=== PATIENT | female | born 1950 | race Caucasian/White ===

== ENCOUNTER 2016-09-12 17:19 | Emergency (ER) | payer MEDICARE, OTHER ==
--- NOTE | 2016-09-12 18:31 | ED ---
Extremity Problem HPI - General Chief complaint: Extremity Problem,Nontraumatic Stated complaint: Swollen Ankle Time Seen by Provider: 09/12/16 18:06 Source: patient, RN notes reviewed Mode of arrival: wheelchair Limitations: no limitations - History of Present Illness Initial comments: Patient is a 65-year-old female presents to the emergency room for evaluation of left ankle pain. Patient states she has been having left ankle pain and swelling for the past few months. Patient denies recent fall, trauma or injury to her left ankle. Patient states she did follow-up with primary care provider and had an ultrasound but never received the results. Patient states she still does not know why she is having ankle swelling and pain every time she walks. Patient states she would like an x-ray to make sure it is not fractured. Patient denies history of PE's or DVTs. Patient states she's been on Coumadin for the past few months. Patient states she was recently diagnosed with A. fib. Patient denies numbness or tingling in her toes. Patient denies chest pain or shortness of breath. Patient denies fevers or chills. - Related Data Home Medications Medication Instructions Recorded Confirmed Bumetanide [BUMEX] 0.5 mg PO BID 09/12/16 09/12/16 Chlorothiazide [Diuril] 500 mg PO BID 09/12/16 09/12/16 Cholecalciferol [Vitamin D3] 2,000 unit PO DAILY 09/12/16 09/12/16 Isosorbide Mononitrate ER [Imdur] 30 mg PO DAILY 09/12/16 09/12/16 Phospha 250 mg PO ACHS 09/12/16 09/12/16 Warfarin Sodium [Coumadin] 6 mg PO HS@1630 09/12/16 09/12/16 Allergies Allergy/AdvReac Type Severity Reaction Status Date / Time No Known Allergies Allergy Verified 09/12/16 19:10 Review of Systems ROS Statement: Those systems with pertinent positive or pertinent negative responses have been documented in the HPI. ROS Other: All systems not noted in ROS Statement are negative. Past Medical History Past Medical History: Hypertension History of Any Multi-Drug Resistant Organisms: None Reported Past Surgical History: Hysterectomy, Orthopedic Surgery Past Psychological History: No Psychological Hx Reported Smoking Status: Current every day smoker Past Alcohol Use History: None Reported Past Drug Use History: None Reported General Exam - General Exam Comments Initial Comments: Sitting in exam room, no acute distress. Limitations: no limitations General appearance: alert, in no apparent distress Head exam: Present: atraumatic, normocephalic, normal inspection Eye exam: Present: normal appearance ENT exam: Present: normal exam Neck exam: Present: normal inspection Respiratory exam: Present: normal lung sounds bilaterally. Absent: respiratory distress Cardiovascular Exam: Present: regular rate, normal rhythm, normal heart sounds Left Ankle exam: Present: full ROM, tenderness (Medial and lateral malleolus), swelling (Edema over her left ankle. No heat on palpation over the ankle. No cellulitis.). Absent: normal inspection Foot/Toe exam: Present: normal inspection Neurovascular tendon exam: Present: no vascular compromise. Absent: pulse deficit (2+ dorsal pedal and posterior tibial pulses), abnormal cap refill ( Capillary refill less than 2 seconds) Back exam: Present: normal inspection Neurological exam: Present: alert, oriented X3, CN II-XII intact Psychiatric exam: Present: normal affect, normal mood Skin exam: Present: warm, dry, intact, normal color. Absent: rash Course Vital Signs 09/12/16 09/12/16 09/12/16 17:30 18:25 20:37 Temperature 97.7 F 97.9 F Pulse Rate 74 93 72 Respiratory 18 16 16 Rate Blood Pressure 174/96 155/85 153/85 O2 Sat by Pulse 96 95 95 Oximetry 09/12/16 21:45 Temperature 98.2 F Pulse Rate 74 Respiratory 20 Rate Blood Pressure 151/68 O2 Sat by Pulse 99 Oximetry Medical Decision Making - Medical Decision Making Patient is a 65-year-old female presents emergency room for evaluation of increasing left ankle pain and swelling. X-ray shows no acute findings. Ultrasound shows no sign of DVT. Patient's INR at a therapeutic level. Advised patient to try compression stockings and to follow-up with her primary care provider for further evaluation. Patient states she understands everything that was discussed with her. Return parameters discussed. Case discussed with Dr. Johnston. - Lab Data Result diagrams: 09/12/16 18:30 09/12/16 18:30 Lab Results 09/12/16 09/12/16 09/12/16 Range/Units 18:30 18:30 18:30 WBC 7.8 (3.8-10.6) k/uL RBC 4.05 (3.80-5.40) m/uL Hgb 12.0 (11.4-16.0) gm/dL Hct 36.2 (34.0-46.0) % MCV 89.4 (80.0-100.0) fL MCH 29.7 (25.0-35.0) pg MCHC 33.2 (31.0-37.0) g/dL RDW 16.8 H (11.5-15.5) % Plt Count 161 (150-450) k/uL Neutrophils % 75 % Lymphocytes % 15 % Monocytes % 5 % Eosinophils % 2 % Basophils % 1 % Neutrophils # 5.9 (1.3-7.7) k/uL Lymphocytes # 1.2 (1.0-4.8) k/uL Monocytes # 0.4 (0-1.0) k/uL Eosinophils # 0.1 (0-0.7) k/uL Basophils # 0.1 (0-0.2) k/uL Manual Slide Review Performed Large Platelets Present Anisocytosis Slight Spherocytes Present PT (9.0-12.0) sec INR (<1.1) Sodium 142 (137-145) mmol/L Potassium 3.5 (3.5-5.1) mmol/L Chloride 107 (98-107) mmol/L Carbon Dioxide 23 (22-30) mmol/L Anion Gap 12 mmol/L BUN 17 (7-17) mg/dL Creatinine 0.70 (0.52-1.04) mg/dL Est GFR (MDRD) Af Amer >60 (>60 ml/min/1.73 sqM) Est GFR (MDRD) Non-Af >60 (>60 ml/min/1.73 sqM) Glucose 103 H (74-99) mg/dL Calcium 10.4 H (8.4-10.2) mg/dL Total Bilirubin 0.9 (0.2-1.3) mg/dL AST 19 (14-36) U/L ALT 22 (9-52) U/L Alkaline Phosphatase 124 (38-126) U/L NT-Pro-B Natriuret Pep 2490 pg/mL Total Protein 7.5 (6.3-8.2) g/dL Albumin 3.9 (3.5-5.0) g/dL 09/12/16 Range/Units 18:30 WBC (3.8-10.6) k/uL RBC (3.80-5.40) m/uL Hgb (11.4-16.0) gm/dL Hct (34.0-46.0) % MCV (80.0-100.0) fL MCH (25.0-35.0) pg MCHC (31.0-37.0) g/dL RDW (11.5-15.5) % Plt Count (150-450) k/uL Neutrophils % % Lymphocytes % % Monocytes % % Eosinophils % % Basophils % % Neutrophils # (1.3-7.7) k/uL Lymphocytes # (1.0-4.8) k/uL Monocytes # (0-1.0) k/uL Eosinophils # (0-0.7) k/uL Basophils # (0-0.2) k/uL Manual Slide Review Large Platelets Anisocytosis Spherocytes PT 16.1 H (9.0-12.0) sec INR 1.7 (<1.1) Sodium (137-145) mmol/L Potassium (3.5-5.1) mmol/L Chloride (98-107) mmol/L Carbon Dioxide (22-30) mmol/L Anion Gap mmol/L BUN (7-17) mg/dL Creatinine (0.52-1.04) mg/dL Est GFR (MDRD) Af Amer (>60 ml/min/1.73 sqM) Est GFR (MDRD) Non-Af (>60 ml/min/1.73 sqM) Glucose (74-99) mg/dL Calcium (8.4-10.2) mg/dL Total Bilirubin (0.2-1.3) mg/dL AST (14-36) U/L ALT (9-52) U/L Alkaline Phosphatase (38-126) U/L NT-Pro-B Natriuret Pep pg/mL Total Protein (6.3-8.2) g/dL Albumin (3.5-5.0) g/dL - Radiology Data Radiology results: report reviewed, image reviewed Disposition Clinical Impression: Edema of left ankle Disposition: HOME SELF-CARE Condition: Good Instructions: Leg Edema (ED) Additional Instructions: Compression stockings. Please follow up with primary care provider in 1-2 days for reevaluation. If any new symptom arises or symptoms worsen, return to ER as soon as possible. Referrals: Salo Mendez DO [Primary Care Provider] - 1-2 days Time of Disposition: 21:29
[2016-09-12 18:54] LABS: Anisocytosis Slight; Basophils # (A) 0.1 k/uL (0-0.2); Basophils % (A) 1 %; CH 29.2; CHCM 32.9; Eosinophils # (A) 0.1 k/uL (0-0.7); Eosinophils % (A) 2 %; HCT 36.2 % (34.0-46.0); Large Platelets Flag Slight; Luc # (Auto) 0.14; Luc % (Auto) 2; Lymphocytes # (A) 1.2 k/uL (1.0-4.8); Lymphocytes % (A) 15 %; MCH 29.7 pg (25.0-35.0); MCHC 33.2 g/dL (31.0-37.0); MCV 89.4 fL (80.0-100.0); Mean Platelet Volume 10.6; Monocytes # (A) 0.4 k/uL (0-1.0); Monocytes % (A) 5 %; Neutrophils # (A) 5.9 k/uL (1.3-7.7); Neutrophils % (A) 75 %; RBC 4.05 m/uL (3.80-5.40); RDW 16.8 % (11.5-15.5); WBC 7.8 k/uL (3.8-10.6); WBC (Perox) 7.67
[2016-09-12 18:55] LABS: INR 1.7 (<1.1); Prothrombin Time 16.1 sec (9.0-12.0)
[2016-09-12 18:57] LABS: ALT 22 U/L (9-52); AST 19 U/L (14-36); Alkaline Phosphatase 124 U/L (38-126); Anion Gap 12 mmol/L; Blood Urea Nitrogen 17 mg/dL (7-17); Calcium 10.4 mg/dL (8.4-10.2); Carbon Dioxide 23 mmol/L (22-30); Chloride 107 mmol/L (98-107); Glucose 103 mg/dL (74-99); Non-African American GFR(MDRD) >60 (>60 ml/min/1.73 sqM); Potassium 3.5 mmol/L (3.5-5.1); Sodium 142 mmol/L (137-145); Total Bilirubin 0.9 mg/dL (0.2-1.3); Total Protein 7.5 g/dL (6.3-8.2)
--- NOTE | 2016-09-12 19:02 | XR ---
EXAMINATION TYPE: XR ankle complete LT DATE OF EXAM: 09/12/2016 6:48 PM COMPARISON: NONE HISTORY: Pain and swelling TECHNIQUE: 3 views FINDINGS: There is soft tissue swelling around the ankle joint. There is a 5 mm defect in the cortex on the medial dome of the talus. There is spurring of the posterior malleolus. There are plantar and Achilles calcaneal spurs. 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 Soft tissue swelling. N o acute fracture seen.
--- NOTE | 2016-09-12 19:04 | XR ---
EXAMINATION TYPE: XR foot complete LT DATE OF EXAM: 09/12/2016 6:48 PM COMPARISON: NONE HISTORY: Pain and swelling TECHNIQUE: 3 views FINDINGS: Metatarsals appear intact. There is narrowing and spurring at the first MP joint. There is soft tissue swelling. There is calcaneal spurring. There is some erosion of the fifth metatarsal head . IMPRESSION: Changes at the fifth metatarsal could relate to inflammatory arthritis. 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 No fracture.
[2016-09-12 20:18] LABS: Manual Review Performed
[2016-09-12 20:19] LABS: Large Platelets Present; Spherocytes Present
--- NOTE | 2016-09-12 21:25 | US ---
EXAMINATION TYPE: US venous doppler duplex LE LT DATE OF EXAM: 09/12/2016 7:43 PM COMPARISON: NONE CLINICAL HISTORY: Left leg Pain. Extremely difficult and limited study due to patient body habitus an d patient unable to tolerate pressure from the probe SIDE PERFORMED: Left TECHNIQUE: The lower extremity deep venous system is examined utilizing real time linear array sonog anjelica with graded compression, doppler sonography and color-flow sonography. VESSELS IMAGED: External Iliac Vein (EIV) Common Femoral Vein Deep Femoral Vein Greater Saphenous Vein * Femoral Vein Popliteal Vein Small Saphenous Vein * Proximal Calf Veins (* superficial vessels) Left Leg: Negative for DVT as visualized, limited exam IMPRESSION: No evidence of deep venous thrombosis in the left leg. Exam was limited.
[2016-09-12 21:55] VITALS: BP 151/68; PULSE 74; RESP 20; TEMP 98.2
== END 2016-09-12 21:45 | disposition home or self-care (01) ==
LOC: EC 17:19
DX: R60.0 Localized edema (principal); I10 Essential (primary) hypertension; F17.200 Nicotine dependence, unspecified, uncomplicated; Z79.01 Long term (current) use of anticoagulants; Z79.899 Other long term (current) drug therapy
CPT/HCPCS: 36415; 80053; 83880; 85025; 85610; 99284

== ENCOUNTER 2016-11-24 14:20 | Inpatient (IN) | payer MEDICARE, OTHER ==
[2016-11-24] MEDS ORDERED: IV VANCOMYCIN PER PHARMACY 1 EACH MISC MISCELLANE PRN (15:02)
[2016-11-24] MEDS ORDERED: PIPERACILLIN-TAZOBACTAM 3.375 GM in DEXTROSE/WATER 1 50ML.BAG IVPB STA (15:02)
--- NOTE | 2016-11-24 15:38 | ED ---
Wound/Laceration HPI - General Chief Complaint: Wound/Laceration Stated Complaint: OPEN WOUND RT LEG Time Seen by Provider: 11/24/16 14:28 Source: patient, EMS, RN notes reviewed, old records reviewed Mode of arrival: EMS Limitations: no limitations - History of Present Illness Initial Comments: This 65-year-old female presents emergency Department chief complaint of increased swelling and drainage from a wound over her right lower leg. Patient reports that she's had some cellulitis lesions over the lower extremity for the past 2 weeks. Patient reports that on Sunday she noticed that it started to form a large pustule over the superior area of the lesion. Patient reports that her visiting nurse saw this and felt that she needed to come to the emergency department. She was started on Bactrim DS by her primary care physician for this two days ago. She has had 4 doses total of Bactrim. Patient denies any fever or chills, chest pain or shortness of breath. She has a history of A. fib and is on Coumadin. She also reports that she has some occasional shortness of breath with walking. She denies any chest pain. She is a smoker. She denies any history of diabetes. She reports that she supposed to follow-up with Dr. Vargas in regards to managing her lower extremity vascularity. Patient reports that she has an appointment on Sunday afternoon. Patient denies any recent fever, chills, shortness of breath, chest pain, back pain, abdominal pain, nausea vomiting, numbness or tingling, dysuria or hematuria, constipation or diarrhea, headaches or visual changes, or any other current symptoms yet. - Related Data Home Medications Medication Instructions Recorded Confirmed Cholecalciferol [Vitamin D3] 2,000 unit PO DAILY 09/12/16 11/24/16 Isosorbide Mononitrate ER [Imdur] 30 mg PO DAILY 09/12/16 11/24/16 Warfarin Sodium [Coumadin] 6 mg PO MOTUTHFR 09/12/16 11/24/16 Warfarin [Coumadin] 3 mg PO SUWESA 11/22/16 11/24/16 Aspirin [Adult Low Dose Aspirin EC] 81 mg PO DAILY 11/24/16 11/24/16 Bumetanide [BUMEX] 0.5 mg PO BID 11/24/16 11/24/16 Phospha 250mg 500 mg PO QID 11/24/16 11/24/16 Sulfamethoxazole/Trimethoprim 1 tab PO BID 11/24/16 11/24/16 [Bactrim DS 800-160 mg] Allergies Allergy/AdvReac Type Severity Reaction Status Date / Time No Known Allergies Allergy Verified 11/24/16 14:45 Review of Systems ROS Statement: Those systems with pertinent positive or pertinent negative responses have been documented in the HPI. ROS Other: All systems not noted in ROS Statement are negative. Past Medical History Past Medical History: Hypertension History of Any Multi-Drug Resistant Organisms: None Reported Past Surgical History: Hysterectomy, Orthopedic Surgery Past Psychological History: No Psychological Hx Reported Smoking Status: Current every day smoker Past Alcohol Use History: None Reported Past Drug Use History: None Reported General Exam - General Exam Comments Initial Comments: 65-year-old female. Limitations: no limitations General appearance: alert, in no apparent distress Head exam: Present: atraumatic, normocephalic, normal inspection Eye exam: Present: normal appearance, PERRL, EOMI. Absent: scleral icterus, conjunctival injection, periorbital swelling ENT exam: Present: normal exam, mucous membranes moist Neck exam: Present: normal inspection. Absent: tenderness, meningismus, lymphadenopathy Respiratory exam: Present: normal lung sounds bilaterally. Absent: respiratory distress, wheezes, rales, rhonchi, stridor Cardiovascular Exam: Present: regular rate, normal rhythm, normal heart sounds. Absent: systolic murmur, diastolic murmur, rubs, gallop, clicks GI/Abdominal exam: Present: soft Extremities exam: Present: normal inspection, full ROM, normal capillary refill , pedal edema (Patient has significant bilateral pedal edema. Dorsalis pedis pulse was not palpable however was obtained with Doppler ultrasound.). Absent: tenderness, joint swelling, calf tenderness Back exam: Present: normal inspection Neurological exam: Present: alert, oriented X3, CN II-XII intact Psychiatric exam: Present: normal affect, normal mood Skin exam: Present: warm, dry, intact, rash, erythema (Patient has significant erythema over the right lower extremity consistent with cellulitis. Evidence of pus filled bulla over the superior aspect of the right lower leg.). Absent: normal color Course Vital Signs 11/24/16 11/24/16 14:24 16:07 Temperature 98.8 F 97.7 F Pulse Rate 90 92 Respiratory 18 18 Rate Blood Pressure 173/72 138/91 O2 Sat by Pulse 99 97 Oximetry Medical Decision Making - Medical Decision Making This 65-year-old female presents emergency Department chief complaint of increased swelling and drainage from a wound over her right lower leg. Patient reports that she's had some cellulitis lesions over the lower extremity for the past 2 weeks. Patient reports that on Sunday she noticed that it started to form a large pustule over the superior area of the lesion. Patient reports that her visiting nurse saw this and felt that she needed to come to the emergency department. She was started on Bactrim DS by her primary care physician for this two days ago. She has had 4 doses total of Bactrim. Patient has significant edema over bilateral lower extremity. She reports that this seems to be chronic. She is also follow-up with Dr. Lind in regards to managing her significant edema and venous stasis in her bilateral lower extremities.Patient was started on IV fluids and blood work and blood cultures are obtained. Aerobic wound culture was also obtained. She did have a culture done by her primary care physician 2 days ago which read positive for Klebsiella pneumonia, group B streptococcus and enterococcus. Patient will be started on Zosyn and vancomycin. X-ray of the tib-fib as well is completed. Patient will be admitted at this time for right leg cellulitis. Discussed this with Dr. Infante who discussed case with Dr. Simons. Patient's parents admitted and on review of chest x-ray shows evidence of right middle lobe infiltrate. Patient will also be given breathing treatments upstairs. - Lab Data Result diagrams: 11/24/16 15:35 11/24/16 15:35 11/24/16 16:54 A. fib is noted. Of inferior infarct anterior infarct age undetermined. Intracranial any 4 bpm. QRS duration 120 ms. QT QTc is 410/480 ms. - Radiology Data Radiology results: report reviewed Tib-fib x-ray shows no acute fracture dislocation noted. Soft tissue swelling of uncertain etiology. Findings suggest a right middle lobe infiltrate with small parapneumonic effusion. Disposition Clinical Impression: Cellulitis of right leg, Afib, Bilateral leg edema, Venous insufficiency, Right middle lobe pneumonia Disposition: ADMITTED IP TO THIS HOSP Condition: Good Time of Disposition: 16:06
[2016-11-24 15:55] LABS: Anisocytosis Slight; Basophils % (A) 1 %; CH 29.4; CHCM 32.6; Eosinophils # (A) 0.1 k/uL (0-0.7); Eosinophils % (A) 1 %; HCT 38.6 % (34.0-46.0); HDW 2.57; HGB 12.5 gm/dL (11.4-16.0); Luc # (Auto) 0.06; Luc % (Auto) 1; Lymphocytes # (A) 0.9 k/uL (1.0-4.8); Lymphocytes % (A) 14 %; MCH 29.5 pg (25.0-35.0); MCHC 32.4 g/dL (31.0-37.0); MCV 90.9 fL (80.0-100.0); Monocytes # (A) 0.3 k/uL (0-1.0); Monocytes % (A) 4 %; Neutrophils # (A) 5.3 k/uL (1.3-7.7); Neutrophils % (A) 80 %; RBC 4.24 m/uL (3.80-5.40); RDW 17.6 % (11.5-15.5); WBC 6.7 k/uL (3.8-10.6); WBC (Perox) 7.03
[2016-11-24] MEDS ORDERED: VANCOMYCIN 2,000 MG in SODIUM CHLORIDE 0.9% 500 ML IVPB ONE (16:00)
[2016-11-24] MEDS: SODIUM CHLORIDE 0.9% 500 ML IV SCH ×2 (16:03→16:04)
[2016-11-24 16:06] LABS: Partial Thromboplastin Time 26.9 sec (22.0-30.0); Prothrombin Time 19.6 sec (9.0-12.0)
[2016-11-24 16:08] LABS: ALT 35 U/L (9-52); AST 23 U/L (14-36); Alkaline Phosphatase 123 U/L (38-126); Anion Gap 14 mmol/L; Blood Urea Nitrogen 16 mg/dL (7-17); Calcium 10.2 mg/dL (8.4-10.2); Carbon Dioxide 24 mmol/L (22-30); Chloride 104 mmol/L (98-107); Glucose 98 mg/dL (74-99); Non-African American GFR(MDRD) >60 (>60 ml/min/1.73 sqM); Potassium 3.3 mmol/L (3.5-5.1); Sodium 142 mmol/L (137-145); Total Bilirubin 1.7 mg/dL (0.2-1.3); Total Protein 7.2 g/dL (6.3-8.2)
[2016-11-24] MEDS ORDERED: IBUPROFEN 400 MG TAB PO PRN (16:10)
[2016-11-24] MEDS ORDERED: NALOXONE 0.4 MG/ML 1 ML VIAL IV PRN (16:10)
[2016-11-24] MEDS ORDERED: LORazepam 2 MG/ML SYRINGE IV PRN (16:10)
[2016-11-24] MEDS ORDERED: ACETAMINOPHEN TAB 325 MG TAB PO PRN (16:10)
[2016-11-24] MEDS ORDERED: SODIUM CHLORIDE 0.9% 1,000 ML IV SCH (16:15)
--- NOTE | 2016-11-24 16:32 | XR ---
EXAMINATION TYPE: XR tibia fibula RT DATE OF EXAM: 11/24/2016 CLINICAL HISTORY: pain TECHNIQUE: AP and lateral images of the right tibia and fibula are obtained. COMPARISON: None. FINDINGS: There is no acute fracture/dislocation evident. Postoperative changes of total knee arthro plasty and fixation plate distal fibula. The joint spaces appear within normal limits. Soft tissue s welling of uncertain etiology. IMPRESSION: There is no acute fracture or dislocation seen. ICD 10 NO FRACTURE, INITIAL EVALUATION
--- NOTE | 2016-11-24 16:33 | XR ---
EXAMINATION TYPE: XR chest 2V DATE OF EXAM: 11/24/2016 COMPARISON: NONE HISTORY: Shortness of breath TECHNIQUE: Frontal and lateral views of the chest are obtained. FINDINGS: Scattered senescent parenchymal changes noted. Hyperinflation compatible with COPD. Patchy density right middle lobe. The small right-sided effusion. Correlate for pneumonia. Heart size is enlarged without overt failure. Mediastinal structures are stable and grossly unremarkable. No evidence for hilar prominence. Degenerative changes dorsal spine. IMPRESSION: 1. Findings suggest a right middle lobe infiltrate with small parapneumonic effusion.
[2016-11-24] MEDS ORDERED: PNEUMONIA PROTOCOL UTILIZED 1 EACH MISC PO PRN (16:56)
[2016-11-24] MEDS: MORPHINE SULFATE 4 MG/ML SYRINGE IV PRN (16:59)
[2016-11-24] MEDS ORDERED: AZITHROMYCIN 500 MG TAB PO STA (17:04)
[2016-11-24] MEDS ORDERED: PHOSPHA PO SCH (18:00)
[2016-11-24 19:06] LABS: Creatine Kinase MB 1.5 ng/mL (0.0-2.4)
[2016-11-24 19:11] LABS: Troponin I 0.063 ng/mL (0.000-0.034)
[2016-11-24] MEDS ORDERED: FUROSEMIDE 10 MG/ML 4 ML VIAL IV STA (19:51)
[2016-11-24] MEDS: BUMETANIDE 0.5 MG TABLET PO SCH (20:59)
[2016-11-24] MEDS: FAMOTIDINE 20 MG TAB PO SCH (20:59)
[2016-11-24 22:14] LABS: Creatine Kinase MB 1.8 ng/mL (0.0-2.4)
[2016-11-24 22:23] LABS: Troponin I 0.071 ng/mL (0.000-0.034)
[2016-11-24 22:36] LABS: Appearance,Urine Clear (Clear); Bilirubin,Urine Negative (Negative); Glucose,Urine (UA) Negative (Negative); Ketones,Urine Negative (Negative); Leukocyte Esterase,Urine Negative (Negative); Nitrite,Urine Negative (Negative); Protein,Urine Negative (Negative); Specific Gravity,Urine 1.004 (1.001-1.035); UA Billing (MACRO vs. MICRO) CHEM
--- NOTE | 2016-11-25 00:36 | P.HPIM ---
History of Present Illness H&P Date: 11/24/16 Chief Complaint: leg swelling and wound on the leg This 65-year-old female with a pmh of HTN, Afib on coumadin, presents to ER with complaint of increased swelling and drainage from a wound over her right lower leg. Patient reports that she's had some cellulitis lesions over the lower extremity for the past 2 weeks. Patient reports that on Sunday she noticed that it started to form a large pustule over the superior area of the lesion. Patient reports that her visiting nurse saw this and felt that she needed to come to the emergency department. She was started on Bactrim DS by her primary care physician for this two days ago. She has had 4 doses total of Bactrim. Patient denies any fever or chills, chest pain or shortness of breath. She also reports that she has some occasional shortness of breath with walking. She denies any chest pain. She is a smoker. She denies any history of diabetes. She reports that she supposed to follow-up with Dr. Vargas in regards to managing her lower extremity vascularity. Patient reports that she has an appointment on Sunday afternoon. Review of Systems Constitutional: Patient denies any fever or chills . No generalized weakness or weight loss. Abdomen: Patient patient does have nausea and 1 episode of vomiting. No diarrhea and abdominal pain. Cardiovascular: Patient denies any chest pain or short of breath no palpitations. Respiratory: patient denied any cough is from production. No shortness of breath Neurologic: Patient denied any numbness . Patient does have dizziness and lightheadedness. Musculoskeletal: Patient denies any complaints of joint swelling or deformity. Skin: b/l leg swelling, redness and skin abcesses. Psychiatric: Negative Endocrine: No heat or cold intolerance. No recent weight gain. Genitourinary: No dysuria or hematuria. All other 14 point ROS negative except the above Past Medical History Past Medical History: Hypertension History of Any Multi-Drug Resistant Organisms: None Reported Past Surgical History: Hysterectomy, Orthopedic Surgery Past Psychological History: No Psychological Hx Reported Smoking Status: Current every day smoker Past Alcohol Use History: None Reported Past Drug Use History: None Reported - Past Family History Mother History Unknown: Yes Father Family Medical History: Cancer, Myocardial Infarction ([place]) Medications and Allergies Home Medications Medication Instructions Recorded Confirmed Type Cholecalciferol [Vitamin D3] 2,000 unit PO DAILY 09/12/16 11/24/16 History Isosorbide Mononitrate ER [Imdur] 30 mg PO DAILY 09/12/16 11/24/16 History Warfarin Sodium [Coumadin] 6 mg PO MOTUTHFR 09/12/16 11/24/16 History Warfarin [Coumadin] 3 mg PO SUWESA 11/22/16 11/24/16 History Aspirin [Adult Low Dose Aspirin EC] 81 mg PO DAILY 11/24/16 11/24/16 History Bumetanide [BUMEX] 0.5 mg PO BID 11/24/16 11/24/16 History Phospha 250mg 500 mg PO QID 11/24/16 11/24/16 History Sulfamethoxazole/Trimethoprim 1 tab PO BID 11/24/16 11/24/16 History [Bactrim DS 800-160 mg] Allergies Allergy/AdvReac Type Severity Reaction Status Date / Time No Known Allergies Allergy Verified 11/24/16 14:45 Physical Exam Vitals: Vital Signs Temp Pulse Pulse Resp BP BP Pulse Ox 11/24/16 17:43 97.1 F L 73 16 158/94 94 L 11/24/16 16:58 98.4 F 89 18 166/75 99 11/24/16 16:07 97.7 F 92 18 138/91 97 11/24/16 14:24 98.8 F 90 18 173/72 99 Intake and Output 11/24/16 11/24/16 11/24/16 06:59 14:59 22:59 Other: Weight 113.398 kg Patient Weight 11/25/16 06:59 Weight 113.398 kg General appearance: alert, in no apparent distress Head exam: : atraumatic, normocephalic, normal inspection Eye exam:: normal appearance, PERRL, EOMI. Absent: scleral icterus, conjunctival injection, periorbital swelling ENT exam:: normal exam, mucous membranes moist Neck exam: : normal inspection. Absent: tenderness, meningismus, lymphadenopathy Respiratory exam: Present: normal lung sounds bilaterally. Absent: respiratory distress, wheezes, rales, rhonchi, stridor Cardiovascular Exam: Present: regular rate, normal rhythm, normal heart sounds. Absent: systolic murmur, diastolic murmur, rubs, gallop, clicks GI/Abdominal exam: Present: soft Extremities exam: Present: normal inspection, full ROM, normal capillary refill , pedal edema (Patient has significant bilateral pedal edema. Dorsalis pedis pulse was not palpable however was obtained with Doppler ultrasound.). Absent: tenderness, joint swelling, calf tenderness Back exam: Present: normal inspection Neurological exam: Present: alert, oriented X3, CN II-XII intact Psychiatric exam: Present: normal affect, normal mood Skin exam: Present: warm, dry, intact, rash, erythema (Patient has significant erythema over the right lower extremity consistent with cellulitis. Evidence of pus filled bulla over the superior aspect of the right lower leg.). Absent: normal color Results CBC & Chem 7: 11/24/16 15:35 11/24/16 15:35 Labs: Abnormal Lab Results - Last 24 Hours (Table) 11/24/16 11/24/16 11/24/16 Range/Units 15:35 15:35 15:35 RDW 17.6 H (11.5-15.5) % Lymphocytes # 0.9 L (1.0-4.8) k/uL PT 19.6 H (9.0-12.0) sec INR 2.0 H (<1.2) Potassium 3.3 L (3.5-5.1) mmol/L Total Bilirubin 1.7 H (0.2-1.3) mg/dL Thrombosis Risk Factor Assmnt - DVT/VTE Prophylaxis DVT/VTE Prophylaxis: Pharmacologic Prophylaxis ordered Assessment and Plan Plan: B/L LE Cellulitis R>L with multiple small abcesses Right middle lobe pneumonia Chronic Afib on coumadin INR 2.0 Bilateral leg edema secondary Venous insufficiency Peripheral Vascular disease HTN NIcotone addiction. Possible underlying COPD Plan: Pt. will be continued on IV abx. Vanco_Ruthsyn, ID consulted and vascular surgery as well. f/u Wound cx and further recommnedations based on clinical course. Time with Patient: Greater than 30
[2016-11-25] MEDS: PIPERACILLIN-TAZOBACTAM 3.375 GM in DEXTROSE/WATER 1 50ML.BAG IVPB SCH ×2 (00:55→08:55)
[2016-11-25 03:36] LABS: Creatine Kinase MB 1.3 ng/mL (0.0-2.4)
[2016-11-25 03:39] LABS: Troponin I 0.104 ng/mL (0.000-0.034)
[2016-11-25] MEDS: IPRATROPIUM-ALBUTEROL 3 ML NEB INHALATION PRN ×3 (07:33→21:53)
--- NOTE | 2016-11-25 08:13 | XR ---
EXAMINATION TYPE: XR chest 2V DATE OF EXAM: 11/25/2016 COMPARISON: 11/24/2016 HISTORY: Shortness of breath TECHNIQUE: Frontal and lateral views of the chest are obtained. FINDINGS: Scattered senescent parenchymal changes noted. Hyperinflation compatible with COPD. Patchy basilar density right medial lung base with associated linear densities is unchanged and may r eflect atelectasis and/or infiltrate with small effusion. Improving aeration left medial lung base. Heart size is stable. Mediastinal structures are stable and grossly unremarkable. No evidence for hilar prominence. Degenerative changes dorsal spine. IMPRESSION: 1. Patchy basilar density right medial lung base with associated linear densities is unchanged and ma y reflect atelectasis and/or infiltrate with small effusion. Improving aeration left medial lung base .
[2016-11-25] MEDS: Acetaminophen-Codeine 300-30mg TAB PO PRN ×3 (08:44→21:49)
[2016-11-25] MEDS: FAMOTIDINE 20 MG TAB PO SCH ×2 (08:45→20:44)
[2016-11-25] MEDS: CHOLECALCIFEROL 1,000 UNIT TAB PO SCH (08:45)
[2016-11-25] MEDS: ISOSORBIDE MONONITRATE ER 30 MG TAB.ER.24H PO SCH (08:45)
[2016-11-25] MEDS: BUMETANIDE 0.5 MG TABLET PO SCH ×2 (08:45→20:44)
[2016-11-25] MEDS: NICOTINE 21MG/24HR PATCH TRANSDERM SCH (08:45)
[2016-11-25] MEDS: ASPIRIN 81 MG CHEW PO SCH (08:46)
[2016-11-25 09:21] LABS: Anisocytosis Slight; Basophils % (A) 1 %; CH 29.1; CHCM 31.8; Eosinophils # (A) 0.1 k/uL (0-0.7); Eosinophils % (A) 2 %; HCT 35.3 % (34.0-46.0); HDW 2.48; HGB 11.6 gm/dL (11.4-16.0); Large Platelets Flag Slight; Luc % (Auto) 2; Lymphocytes % (A) 16 %; MCH 30.2 pg (25.0-35.0); MCHC 32.9 g/dL (31.0-37.0); MCV 92.1 fL (80.0-100.0); Mean Platelet Volume 11.5; Monocytes # (A) 0.4 k/uL (0-1.0); Monocytes % (A) 6 %; Neutrophils # (A) 4.7 k/uL (1.3-7.7); Neutrophils % (A) 74 %; RBC 3.84 m/uL (3.80-5.40); RDW 17.6 % (11.5-15.5); WBC 6.3 k/uL (3.8-10.6); WBC (Perox) 6.54
[2016-11-25 09:38] LABS: Anion Gap 11 mmol/L; Blood Urea Nitrogen 19 mg/dL (7-17); Calcium 9.8 mg/dL (8.4-10.2); Carbon Dioxide 26 mmol/L (22-30); Chloride 103 mmol/L (98-107); Glucose 143 mg/dL (74-99); Non-African American GFR(MDRD) 52 (>60 ml/min/1.73 sqM); Potassium 3.3 mmol/L (3.5-5.1); Sodium 140 mmol/L (137-145)
[2016-11-25] MEDS ORDERED: VANCOMYCIN 1,750 MG in SODIUM CHLORIDE 0.9% 250 ML IVPB SCH (12:00)
--- NOTE | 2016-11-25 12:36 | P.CRDCN ---
History of Present Illness Consult date: 11/25/16 History of present illness: This is a 65-year-old female with history of of hypertension, atrial fibrillation, who came to the hospital with complaints of increasing swelling of the legs and also shortness of breath. Patient's troponin values were mildly elevated but the pattern is not consistent with acute coronary syndrome. Patient's EKG showed evidence of possible anteroseptal and inferior wall AK, though patient doesn't give any history of having previous myocardial infarction. Echocardiogram showed fairly preserved LV function without any definite segmental wall motion defects. However her proBNP is elevated. Patient is currently being treated with Bumex. I'm going to add all lactone 25 mg once daily along with Coreg and his Toprol. If necessary, IV Lasix or Zaroxolyn could be added. Patient also has peripheral vascular disease and is being followed by vascular surgeon. She doesn't seem to be in acute distress at the time of my examination. She denies any orthopnea, paroxysmal dyspnea or chest pains Review of Systems As per the chart Past Medical History Past Medical History: Hypertension Additional Past Medical History / Comment(s): RT MUNGUIA HAS OPEN WOUND/ CELLULITIS. GOES TO [facility] EVERY SUNDAY.UTERINE CANCER. LT CATARACT History of Any Multi-Drug Resistant Organisms: None Reported Past Surgical History: Hysterectomy, Orthopedic Surgery Additional Past Surgical History / Comment(s): UZMA KNEE REPLACMENTS, RT ANKLE- METAL PLATE, RT ARM SX REPAIR D/T LACERATION. RT THUMB TENDON REPAIR," LT FOOT GREAT TOE BONE REMOVED". Past Anesthesia/Blood Transfusion Reactions: Blood Transfusion Reaction Additional Past Anesthesia/Blood Transfusion Reaction / Comment(s): PAST BLOOD [id number] Date of Last Stent Placement:: 2003 Past Psychological History: No Psychological Hx Reported Smoking Status: Current every day smoker Past Alcohol Use History: None Reported Past Drug Use History: None Reported - Past Family History Mother History Unknown: Yes Father Family Medical History: Cancer, Myocardial Infarction (AK) Medications and Allergies Home Medications Medication Instructions Recorded Confirmed Type Cholecalciferol [Vitamin D3] 2,000 unit PO DAILY 09/12/16 11/24/16 History Isosorbide Mononitrate ER [Imdur] 30 mg PO DAILY 09/12/16 11/24/16 History Warfarin Sodium [Coumadin] 6 mg PO MOTUTHFR 09/12/16 11/24/16 History Warfarin [Coumadin] 3 mg PO SUWESA 11/22/16 11/24/16 History Aspirin [Adult Low Dose Aspirin EC] 81 mg PO DAILY 11/24/16 11/24/16 History Bumetanide [BUMEX] 0.5 mg PO BID 11/24/16 11/24/16 History Phospha 250mg 500 mg PO QID 11/24/16 11/24/16 History Sulfamethoxazole/Trimethoprim 1 tab PO BID 11/24/16 11/24/16 History [Bactrim DS 800-160 mg] Allergies Allergy/AdvReac Type Severity Reaction Status Date / Time No Known Allergies Allergy Verified 11/24/16 14:45 Physical Exam Vitals: Vital Signs Temp Pulse Pulse Resp BP BP Pulse Ox 11/25/16 11:33 92 11/25/16 11:23 90 11/25/16 08:00 88 16 11/25/16 07:44 88 11/25/16 07:36 88 11/25/16 07:00 97.5 F L 88 16 118/79 98 11/24/16 23:00 98.8 F 102 H 15 142/72 94 L 11/24/16 17:43 97.1 F L 73 16 158/94 94 L 11/24/16 16:58 98.4 F 89 18 166/75 99 11/24/16 16:07 97.7 F 92 18 138/91 97 11/24/16 14:24 98.8 F 90 18 173/72 99 Intake and Output 11/24/16 11/25/16 11/25/16 22:59 06:59 14:59 Intake Total 200 Balance 200 Intake: Oral 200 Other: Voiding Method Toilet Toilet # Voids 5 8 Weight 123.6 kg GENERAL EXAM: Patient is alert and oriented and doesn't appear to be in any acute distress HEENT: Normocephalic. Normal reaction of pupils, equal size, normal range of extraocular motion. No erythema or exudates in the throat. NECK: No masses, no nuchal rigidity. CHEST: No chest wall deformity. LUNGS: Diminished breath sounds at bases HEART: S1 and S2 normal with no audible mumurs or gallops. Regular rhythm, femorals equal on both sides.. ABDOMEN: No hepatosplenomegaly, normal bowel sounds, no guarding or rigidity. SKIN: No rashes CENTRAL NERVOUS SYSTEM: No focal deficits. EXTREMITIES: Significant bilateral edema with signs of some cellulitis . Results 11/25/16 08:25 11/25/16 08:25 Cardiac Enzymes 11/24/16 11/24/16 11/24/16 Range/Units 15:35 15:35 21:26 AST 23 (14-36) U/L CK-MB (CK-2) 1.5 1.8 (0.0-2.4) ng/mL Troponin I 0.063 H* 0.071 H* (0.000-0.034) ng/mL 11/25/16 11/25/16 Range/Units 02:51 08:25 AST (14-36) U/L CK-MB (CK-2) 1.3 (0.0-2.4) ng/mL Troponin I 0.104 H* 0.087 H* (0.000-0.034) ng/mL Coagulation 11/24/16 Range/Units 15:35 PT 19.6 H (9.0-12.0) sec APTT 26.9 (22.0-30.0) sec CBC 11/24/16 11/25/16 Range/Units 15:35 08:25 WBC 6.7 6.3 (3.8-10.6) k/uL RBC 4.24 3.84 (3.80-5.40) m/uL Hgb 12.5 11.6 (11.4-16.0) gm/dL Hct 38.6 35.3 (34.0-46.0) % Plt Count 160 154 (150-450) k/uL Comprehensive Metabolic Panel 11/24/16 11/25/16 Range/Units 15:35 08:25 Sodium 142 140 (137-145) mmol/L Potassium 3.3 L 3.3 L (3.5-5.1) mmol/L Chloride 104 103 (98-107) mmol/L Carbon Dioxide 24 26 (22-30) mmol/L BUN 16 19 H (7-17) mg/dL Creatinine 0.90 1.05 H (0.52-1.04) mg/dL Glucose 98 143 H (74-99) mg/dL Calcium 10.2 9.8 (8.4-10.2) mg/dL AST 23 (14-36) U/L ALT 35 (9-52) U/L Alkaline Phosphatase 123 (38-126) U/L Total Protein 7.2 (6.3-8.2) g/dL Albumin 3.8 (3.5-5.0) g/dL Current Medications Generic Name Dose Route Start Last Admin Trade Name Freq PRN Reason Stop Dose Admin Acetaminophen 650 mg 11/24/16 16:10 Tylenol Tab PO Q6HR PRN Mild Pain or Fever > 100.5 Acetaminophen/Codeine Phosphate 1 each 11/24/16 16:10 11/25/16 08:44 Tylenol #3 PO 1 each Q4HR PRN Administration Moderate Pain Albuterol/Ipratropium 3 ml 11/24/16 16:56 11/25/16 11:23 Duoneb 0.5 Mg-3 Mg/3 Ml Soln INHALATION 3 ml RT-Q4H PRN Administration shortness of breath Aspirin 81 mg 11/25/16 09:00 11/25/16 08:46 Aspirin PO 81 mg DAILY [facility] Administration Bumetanide 0.5 mg 11/24/16 21:00 11/25/16 08:45 Bumetanide PO 0.5 mg BID JUANJOSE Administration Carvedilol 3.125 mg 11/25/16 17:30 Coreg PO BID-W/MEALS [facility] Cholecalciferol 2,000 unit 11/25/16 09:00 11/25/16 08:45 Vitamin D3 PO 2,000 unit DAILY JUANJOSE Administration Collagenase 1 applic 11/26/16 16:00 Santyl TOPICAL DAILY JUANJOSE Famotidine 20 mg 11/24/16 21:00 11/25/16 08:45 Pepcid PO 20 mg BID JUANJOSE Administration Piperacillin/Tazobactam/ 50 mls @ 12.5 mls/hr 11/25/16 00:00 11/25/16 08:55 Dextrose 3.375 gm/ IV Solution IVPB 12.5 mls/hr Q8HR JUANJOSE Administration Vancomycin HCl 1,750 mg/ 250 mls @ 125 mls/hr 11/25/16 12:00 11/25/16 12:00 Sodium Chloride IVPB 125 mls/hr Q24H JUANJOSE Administration Ibuprofen 400 mg 11/24/16 16:10 Motrin PO Q6HR PRN Mild Pain or Fever > 100.5 Isosorbide Mononitrate 30 mg 11/25/16 09:00 11/25/16 08:45 Imdur PO 30 mg DAILY JUANJOSE Administration Lisinopril 2.5 mg 11/26/16 09:00 Zestril PO DAILY [facility] Lorazepam 0.5 mg 11/24/16 16:10 Ativan IV Q6HR PRN Anxiety Miscellaneous Information 1 each 11/24/16 16:56 Pneumonia Protocol Utilized PO ONCE PRN Per Protocol Morphine Sulfate 4 mg 11/24/16 16:10 11/24/16 16:59 Morphine Sulfate (Inj) IV 4 mg Q4HR PRN Administration Severe Pain Naloxone HCl 0.2 mg 11/24/16 16:10 Narcan IV Q2M PRN Opioid Reversal Nicotine 1 patch 11/25/16 09:00 11/25/16 08:45 Habitrol 21mg/24hr Patch TRANSDERM 1 patch DAILY JUANJOSE Administration Spironolactone 25 mg 11/25/16 12:30 Aldactone PO DAILY [facility] Warfarin Sodium 3 mg 11/25/16 18:00 Coumadin PO [id number] [facility] Warfarin Sodium 6 mg 11/27/16 18:00 Coumadin PO [id number] [facility] Intake and Output 11/24/16 11/25/16 11/25/16 22:59 06:59 14:59 Intake Total 200 Balance 200 Intake: Oral 200 Other: Voiding Method Toilet Toilet # Voids 5 8 Weight 123.6 kg 11/25/16 08:25 11/25/16 08:25 EKG Interpretations (text) Sinus rhythm with evidence of possible old inferior wall AK and anteroseptal AK Assessment and Plan (1) Diastolic CHF Status: Acute (2) Afib Status: Acute (3) Bilateral leg edema Status: Acute (4) Cellulitis of right leg Status: Acute (5) Venous insufficiency Status: Acute (6) Elevated troponin Status: Acute Plan: Daily weights abnormal troponin values are not consistent with acute coronary syndrome. Underlying ischemic heart disease cannot be excluded. Patient doesn' t have mechanical symptoms of angina. Patient mainly came with increasing pedal edema and some shortness of breath. Chest x-ray size to possible CHF. ProBNP is elevated. I'm going to add all lactone, Coreg and also small dose of lisinopril. If necessary, IV Lasix or Zaroxolyn by mouth should be considered. Further recommendations depend upon clinical course. Her echocardiogram was suboptimal but shows almost preserved LV function with an ejection fraction of 55%
[2016-11-25] MEDS: SPIRONOLACTONE 25 MG TAB PO SCH (13:04)
[2016-11-25 13:34] LABS: INR 1.9 (<1.2); Prothrombin Time 18.6 sec (9.0-12.0)
[2016-11-25] MEDS: ceFAZolin 2 GM in SODIUM CHLORIDE 0.9% 100 ML IVPB SCH ×2 (16:27→23:29)
[2016-11-25] MEDS ORDERED: BUMETANIDE 0.25 MG/ML 4 ML VIAL IVP STA (16:33)
--- NOTE | 2016-11-25 16:52 | P.PN ---
Subjective This 65-year-old female with a pmh of HTN, Afib on coumadin, presents to ER with complaint of increased swelling and drainage from a wound over her right lower leg. Patient reports that she's had some cellulitis lesions over the lower extremity for the past 2 weeks. Patient reports that on Sunday she noticed that it started to form a large pustule over the superior area of the lesion. Patient reports that her visiting nurse saw this and felt that she needed to come to the emergency department. She was started on Bactrim DS by her primary care physician for this two days ago. She has had 4 doses total of Bactrim. Patient denies any fever or chills, chest pain or shortness of breath. She also reports that she has some occasional shortness of breath with walking. She denies any chest pain. She is a smoker. She denies any history of diabetes. She reports that she supposed to follow-up with Dr. Vargas in regards to managing her lower extremity vascularity. Patient reports that she has an appointment on Sunday afternoon. 11/25/2016 Patient states to be feeling better. No fevers chills nausea vomiting diarrhea reported Brief history patient has a history of right lower extremity chronic cellulitis is followed by Dr. Vargas Is admitted to the hospital with worsening of the cellulitis with an open induration Objective - Vital Signs Vital signs: Vital Signs Temp 97.1 F L 11/25/16 15:00 Pulse 84 11/25/16 16:00 Resp 16 11/25/16 16:00 BP 139/79 11/25/16 15:00 Pulse Ox 98 11/25/16 15:00 Intake & Output 11/24/16 11/25/16 11/25/16 18:59 06:59 18:59 Intake Total 400 Balance 400 Weight 113.398 kg 123.6 kg 123.6 kg Intake: Oral 400 Other: Voiding Method Toilet Toilet # Voids 8 3 - Exam Physical exam Gen. appearance oriented 3 in no distress obese and lower extremity no significant pitting edema there is multiple areas of induration's and open wounds with serosanguineous discharge Neck is supple no JVD Lungs good air entry clear to auscultation no rhonchi or wheezing Heart S1-S2 heard regular rate and rhythm no murmurs appreciated Abdomen is soft nontender no organomegaly bowel sounds are intact Neurologically cranial nerves II-12 grossly intact no focal motor or sensory deficits noted Skin no abnormalities appreciated - Labs CBC & Chem 7: 11/25/16 08:25 11/25/16 08:25 Labs: Abnormal Lab Results - Last 24 Hours (Table) 11/24/16 11/24/16 11/25/16 Range/Units 15:35 21:26 02:51 RDW (11.5-15.5) % PT (9.0-12.0) sec INR (<1.2) Potassium (3.5-5.1) mmol/L BUN (7-17) mg/dL Creatinine (0.52-1.04) mg/dL Glucose (74-99) mg/dL Total Creatine Kinase 138 H (30-135) U/L Troponin I 0.063 H* 0.071 H* 0.104 H* (0.000-0.034) ng/mL 11/25/16 11/25/16 11/25/16 Range/Units 08:25 08:25 08:25 RDW 17.6 H (11.5-15.5) % PT (9.0-12.0) sec INR (<1.2) Potassium 3.3 L (3.5-5.1) mmol/L BUN 19 H (7-17) mg/dL Creatinine 1.05 H (0.52-1.04) mg/dL Glucose 143 H (74-99) mg/dL Total Creatine Kinase (30-135) U/L Troponin I 0.087 H* (0.000-0.034) ng/mL 11/25/16 Range/Units 08:25 RDW (11.5-15.5) % PT 18.6 H (9.0-12.0) sec INR 1.9 H (<1.2) Potassium (3.5-5.1) mmol/L BUN (7-17) mg/dL Creatinine (0.52-1.04) mg/dL Glucose (74-99) mg/dL Total Creatine Kinase (30-135) U/L Troponin I (0.000-0.034) ng/mL Microbiology - Last 24 Hours (Table) 11/24/16 21:45 Urine Culture - Preliminary Urine,Voided 07/21/17 15:35 Gram Stain - Final Leg - Right Wound Culture - Final Assessment and Plan Plan: Acute on chronic lower extremity cellulitis #2 obesity #3 history of tobacco use with underlying COPD #4 concern for right lower lobe pneumonia #5 chronic diastolic heart failure with a mild acute component #6 indeterminate troponin leak #Dyslipidemia Plan We'll give 1 more dose of IV Bumex 1 mg Continue with the medications as recommended by cardiology IV antibiotics Patient will need no 24-48 hours and thereafter will be discharged to be seen at wound care on Sunday
[2016-11-25] MEDS: COLLAGENASE 250 UNIT/GM OINTMENT 30 GM TUBE TOPICAL SCH (17:14)
[2016-11-25] MEDS: WARFARIN 3 MG TAB PO SCH (17:15)
[2016-11-25] MEDS: CARVEDILOL 3.125 MG TAB PO SCH (17:15)
[2016-11-25] MEDS: MORPHINE SULFATE 4 MG/ML SYRINGE IV PRN (23:21)
[2016-11-26] MEDS: NICOTINE 21MG/24HR PATCH TRANSDERM SCH (08:36)
[2016-11-26] MEDS: SPIRONOLACTONE 25 MG TAB PO SCH (08:37)
[2016-11-26] MEDS: LISINOPRIL 2.5 MG TAB PO SCH (08:37)
[2016-11-26] MEDS: ASPIRIN 81 MG CHEW PO SCH (08:37)
[2016-11-26] MEDS: BUMETANIDE 0.5 MG TABLET PO SCH ×2 (08:37→21:13)
[2016-11-26] MEDS: FAMOTIDINE 20 MG TAB PO SCH ×2 (08:37→21:13)
[2016-11-26] MEDS: CARVEDILOL 3.125 MG TAB PO SCH ×2 (08:37→18:05)
[2016-11-26] MEDS: Acetaminophen-Codeine 300-30mg TAB PO PRN (08:37)
[2016-11-26] MEDS: ISOSORBIDE MONONITRATE ER 30 MG TAB.ER.24H PO SCH (08:37)
[2016-11-26] MEDS: CHOLECALCIFEROL 1,000 UNIT TAB PO SCH (08:38)
[2016-11-26 08:59] LABS: INR 1.8 (<1.2); Prothrombin Time 16.9 sec (9.0-12.0)
[2016-11-26] MEDS: ceFAZolin 2 GM in SODIUM CHLORIDE 0.9% 100 ML IVPB SCH ×3 (10:28→23:11)
--- NOTE | 2016-11-26 11:34 | CONS ---
DATE OF CONSULTATION: 11/25/2016 REASON FOR CONSULTATION: Right lower extremity wound and cellulitis. HISTORY OF PRESENT ILLNESS: The patient is a 65 year old female who presented to [facility] ER on 11/24/2016 with chief complains of swelling and drainage from the wound of the right leg. The patient ( ) had significant swelling in the right leg. The patient developed a blister that has opened up and leading to some superficial ulceration. The patient has been complaining of dull aching pain in the leg, intensity about 5 to 6/10. No radiation. Drainage is mostly clear. The patient has been treated in the outpatient setting with oral Bactrim DS. However, the patient denied any significant ( ). The patient denies any high grade fever, rigors or chills. Though the patient is complaining of increasing shortness of breath and cough but no chest pain. Subsequently evaluated by the ER physician. The patient has been diagnosed with lower extremity cellulitis. She was started on Vancomycin, admitted to the hospital. ID was consulted for further recommendations regarding antibiotic therapy. REVIEW OF SYSTEMS Constitutional: Positive for weakness but no high grade fever has been recorded. EYES: No complaint. ENT: No complaint. Respiratory : No complaint. Cardiovascular: As per HPI. Genitourinary: No complaint. Gastrointestinal: No complaint. Musculoskeletal: As per HPI. Integumentary: As per HPI. Psychological: No complaint. Endocrine: No complaint. Neurological: No complaint. Past medical history significant for hypertension, atrial fibrillation, congestive heart failure. Past surgical history: Hysterectomy and orthopedic surgery. SOCIAL HISTORY: The patient is currently a smoker. No drinking or drug use. FAMILY HISTORY: No pertinent findings were noticed. ALLERGIES: No known drug allergies. Medications currently include the patient is on: 1. Piptazobactam. 2. Vancomycin. 3. Coumadin. 4. Aldactone. 5. ( ). 6. Narcan. 7. Ativan. 8. Zestril. 9. DuoNeb. 10. Tylenol #3. 11. Aspirin. On examination, blood pressure is 139/79 with a pulse of 84. Temperature 97.1. He is 98% on room air. General description is an elderly female up in the chair, in no distress. No tachypnea or accessory muscles of respiration use. HEENT: Examination shows no pallor or scleral icterus. Oral mucous membranes dry. NECK: Trachea is central. No thyromegaly. LUNGS: Unlabored breathing. Decreased breath sounds at the bases. No wheeze or crackles. HEART: S1, S2 regular rate and rhythm. ABDOMEN: Soft, no tenderness. No guarding or rigidity. EXTREMITIES: ( ) of the feet. The patient has ulceration of the right leg with a ( ) soft tissue to the upper wound. Minimal redness. NEUROLOGICALLY: The patient is awake, alert and oriented times three. Mood and affect normal. LABS: Hemoglobin 11.6, white count 6.3 with a INR 1.29. BUN 19, creatinine 1.05. UA has been negative. The patient did have blood cultures obtained which are currently pending. DIAGNOSTIC IMPRESSION AND PLAN: Patient with right lower extremity superficial ulceration from ruptured ( ). The patient did have evidence of fluid overload with very minimal cellulitis with decreased swelling and redness likely representing streptococcus cellulitis, clinically doubt MRSA for gram negative infection, failing outpatient antibiotic therapy. PLAN: 1. Discontinue the patient on Zosyn and Vancomycin. 2. Start the patient on Cefazolin. 3. ( ) soft tissue, Aquacel silver dressing. 4. ( ). 5. We will follow up on her clinical condition and cultures to further adjust medications if needed. Thank you for this consultation. We will follow this patient along with you. GLORIA
--- NOTE | 2016-11-26 14:28 | P.PN ---
Subjective This 65-year-old female with a pmh of HTN, Afib on coumadin, presents to ER with complaint of increased swelling and drainage from a wound over her right lower leg. Patient reports that she's had some cellulitis lesions over the lower extremity for the past 2 weeks. Patient reports that on Sunday she noticed that it started to form a large pustule over the superior area of the lesion. Patient reports that her visiting nurse saw this and felt that she needed to come to the emergency department. She was started on Bactrim DS by her primary care physician for this two days ago. She has had 4 doses total of Bactrim. Patient denies any fever or chills, chest pain or shortness of breath. She also reports that she has some occasional shortness of breath with walking. She denies any chest pain. She is a smoker. She denies any history of diabetes. She reports that she supposed to follow-up with Dr. Vargas in regards to managing her lower extremity vascularity. Patient reports that she has an appointment on Sunday afternoon. 11/25/2016 Patient states to be feeling better. No fevers chills nausea vomiting diarrhea reported Brief history patient has a history of right lower extremity chronic cellulitis is followed by Dr. Vargas Is admitted to the hospital with worsening of the cellulitis with an open induration 11/26/2016 No new overnight events Patient denies having fevers chills nausea vomiting abdominal pain chest pain difficulty breathing Patient has had 4-5 bowel moments Objective - Vital Signs Vital signs: Vital Signs Temp 96.6 F L 11/26/16 07:00 Pulse 81 11/26/16 08:00 Resp 16 11/26/16 08:00 BP 120/57 11/26/16 07:00 Pulse Ox 97 11/26/16 07:00 Intake & Output 11/25/16 11/26/16 11/26/16 18:59 06:59 18:59 Intake Total 600 200 Balance 600 200 Weight 123.6 kg 124.5 kg 124.5 kg Intake: Oral 600 200 Other: Voiding Method Toilet Toilet Toilet # Voids 3 3 1 # Bowel Movements 1 - Exam Physical exam Gen. appearance oriented 3 in no distress obese and lower extremity no significant pitting edema there is multiple areas of induration's and open wounds with serosanguineous discharge Neck is supple no JVD Lungs good air entry clear to auscultation no rhonchi or wheezing Heart S1-S2 heard regular rate and rhythm no murmurs appreciated Abdomen is soft nontender no organomegaly bowel sounds are intact Neurologically cranial nerves II-12 grossly intact no focal motor or sensory deficits noted Skin no abnormalities appreciated - Labs CBC & Chem 7: 11/25/16 08:25 11/25/16 08:25 Labs: Abnormal Lab Results - Last 24 Hours (Table) 11/26/16 Range/Units 08:25 PT 16.9 H (9.0-12.0) sec INR 1.8 H (<1.2) Microbiology - Last 24 Hours (Table) 11/24/16 21:45 Urine Culture - Final Urine,Voided 11/24/16 15:35 Blood Culture - Preliminary Blood No Growth after 24 hours Assessment and Plan Plan: Acute on chronic lower extremity cellulitis #2 obesity #3 history of tobacco use with underlying COPD #4 concern for right lower lobe pneumonia #5 chronic diastolic heart failure with a mild acute component #6 indeterminate troponin leak #Dyslipidemia Plan IV antibiotics Patient will need no 24-48 hours and thereafter will be discharged to be seen at wound care on Sunday
[2016-11-26] MEDS: WARFARIN 3 MG TAB PO SCH (18:05)
[2016-11-27 02:13] VITALS: RESP 20
[2016-11-27] MEDS: Acetaminophen-Codeine 300-30mg TAB PO PRN (02:56)
[2016-11-27 07:18] VITALS: BP 132/64; PULSE 72; TEMP 97.1
[2016-11-27] MEDS: ISOSORBIDE MONONITRATE ER 30 MG TAB.ER.24H PO SCH (07:58)
[2016-11-27] MEDS: CARVEDILOL 3.125 MG TAB PO SCH (07:58)
[2016-11-27] MEDS: LISINOPRIL 2.5 MG TAB PO SCH (07:58)
[2016-11-27] MEDS: SPIRONOLACTONE 25 MG TAB PO SCH (07:58)
[2016-11-27] MEDS: FAMOTIDINE 20 MG TAB PO SCH (07:58)
[2016-11-27] MEDS: CHOLECALCIFEROL 1,000 UNIT TAB PO SCH (07:59)
[2016-11-27] MEDS: BUMETANIDE 0.5 MG TABLET PO SCH (07:59)
[2016-11-27] MEDS: COLLAGENASE 250 UNIT/GM OINTMENT 30 GM TUBE TOPICAL SCH (08:00)
[2016-11-27] MEDS: NICOTINE 21MG/24HR PATCH TRANSDERM SCH ×2 (08:02→08:06)
[2016-11-27] MEDS: ceFAZolin 2 GM in SODIUM CHLORIDE 0.9% 100 ML IVPB SCH (08:06)
--- NOTE | 2016-11-27 08:43 | ECHOF ---
Referral Reason:Chest pain and cardiomyopathy MEASUREMENTS -------- HEIGHT: 152.4 cm WEIGHT: 123.4 kg BP: 118/79 RVIDd: 3.3 cm (< 3.3) IVSd: 1.5 cm (0.6 - 1.1) LVIDd: 4.2 cm (3.9 - 5.3) LVPWd: 1.3 cm (0.6 - 1.1) IVSs: 2.0 cm LVIDs: 2.9 cm LVPWs: 2.0 cm LA Diam: 3.6 cm (2.7 - 3.8) Ao Diam: 3.1 cm (2.0 - 3.7) AV Cusp: 1.7 cm (1.5 - 2.6) MV EXCURSION: 17.007 mm (> 18.000) MV EF SLOPE: 52 mm/s (70 - 150) EPSS: 1.0 cm AV maxP.79 mmHg AV meanP.82 mmHg RAP: 15.00 mmHg RVSP: 46.80 mmHg FINDINGS -------- This was a technically difficult study with suboptimal views. The left ventricular size is normal. There is moderate concentric left ventricular hypertrophy. Overall left ventricular systolic function is low-normal with, an EF between 50 - 55 %. The right ventricle is mildly enlarged. The left atrial size is normal. The right atrium was not well visualized. 1.5mg of Definity was utilized for enhancement of images There is mild aortic valve sclerosis. There is mild aortic stenosis present. Peak/mean gradient across the Aortic Valve is 13.79mmHg / 6.82mmHg. The mitral valve leaflets are mildly thickened. Mild mitral annular calcification present. Mild mitral regurgitation is present. Mild tricuspid regurgitation present. There is moderate pulmonary hypertension. The right ventricular systolic pressure, as measured by Doppler, is 46.80mmHg. The pulmonic valve was not well visualized. The aortic root size is normal. The inferior vena cava is dilated with no significant inspiratory collapse which is consistent estimated right atrial pressure of >15 mmHg. There is no pericardial effusion. CONCLUSIONS -------- 1. This was a technically difficult study with suboptimal views. 2. There is mild aortic stenosis present. 3. Peak/mean gradient across the Aortic Valve is 13.79mmHg / 6.82mmHg. 4. The mitral valve leaflets are mildly thickened. 5. Mild mitral annular calcification present. 6. Mild mitral regurgitation is present. 7. Mild tricuspid regurgitation present. 8. There is moderate pulmonary hypertension. 9. The right ventricular systolic pressure, as measured by Doppler, is 46.80mmHg. 10. The pulmonic valve was not well visualized. 11. The aortic root size is normal. 12. The left ventricular size is normal. 13. The inferior vena cava is dilated with no significant inspiratory collapse which is consistent estimated right atrial pressure of >20 mmHg. 14. There is no pericardial effusion. 15. There is moderate concentric left ventricular hypertrophy. 16. Overall left ventricular systolic function is low-normal with, an EF between 50 - 55 %. 17. The right ventricle is mildly enlarged. 18. The left atrial size is normal. 19. The right atrium was not well visualized. 20. 1.5mg of Definity was utilized for enhancement of images 21. There is mild aortic valve sclerosis. NECK CUTTER: Diya Pineda RDCS
[2016-11-27] MEDS: ASPIRIN 81 MG CHEW PO SCH (08:54)
[2016-11-27 08:57] LABS: INR 1.7 (<1.2); Prothrombin Time 16.3 sec (9.0-12.0)
--- NOTE | 2016-11-27 13:04 | PN ---
DATE OF SERVICE: 11/26/16 REASON FOR FOLLOW UP: Right lower extremity wound and cellulitis. INTERVAL HISTORY: The patient is afebrile. She is breathing comfortably. Denies significant chest pain or shortness of breath, cough, abdominal pain or any worsening pain in the right leg area. On examination, blood pressure 110/76, pulse 81, temperature 97.4, she is 98% on room air. General description revealed an elderly female, up in the chair in no distress. Respiratory: Unlabored breathing. Clear to auscultation anteriorly. Heart: S1, S2 regular rate and rhythm. Abdomen soft, no tenderness. Right leg overall swelling and redness has slightly improved. Labs: Hemoglobin 11.6, white count 6.3 with a BUN 19, creatinine 1.05. DIAGNOSTIC IMPRESSION AND PLAN: Patient with right lower extremity venous stasis ulcer and secondary cellulitis. The patient is currently on Rocephin. We will continue ( ) to the wound and ( ) tomorrow. Continue supportive care. GLORIA
--- NOTE | 2016-11-27 16:09 | PN ---
DATE OF SERVICE: 11/27/16 REASON FOR FOLLOW UP: Right lower extremity wound and cellulitis. INTERVAL HISTORY: The patient is afebrile. She is breathing comfortably. Denies significant chest pain, cough, no abdominal pain. No worsening pain in the right leg area. On examination, blood pressure 132/54, pulse 72, temperature 97.1, she is 94% on room air. General description is an elderly female, up in the chair in no distress. Respiratory: Unlabored breathing. Clear to auscultation anteriorly. Heart: S1, S2 regular rate and rhythm. Abdomen soft, no tenderness. Right leg overall swelling and redness has improved. Labs: Hemoglobin 11.6, white count 6.2 with a BUN 19, creatinine 1.05. DIAGNOSTIC IMPRESSION AND PLAN: Patient admitted to the hospital with right lower extremity wound cellulitis with diffuse redness and swelling. Continue the patient on Cefazolin with plan to finish therapy with po Keflex. Local wound care treated with Aquacel silver. ( ) Continue supportive care. MTDD
--- NOTE | 2016-11-27 17:45 | P.DS ---
Providers Date of admission: 11/24/16 15:35 Attending physician: Hanane Simons Consults: 11/24/16 18:47 Consult Physician Routine Consulting Provider: Katalina Pino Consult Reason/Comments: right leg cellulitis Do you want consulting provider notified?: Yes 11/24/16 18:48 Consult Physician Routine Consulting Provider: Praneeth Lind Consult Reason/Comments: right leg cellulitis Do you want consulting provider notified?: Yes 11/24/16 22:25 Consult Physician Routine Consulting Provider: [facility] Consult Reason/Comments: Elevated troponin Do you want consulting provider notified?: Yes, Notify in am Primary care physician: [facility] Hospital Course: This 65-year-old female with a pmh of HTN, Afib on coumadin, presents to ER with complaint of increased swelling and drainage from a wound over her right lower leg. Patient reports that she's had some cellulitis lesions over the lower extremity for the past 2 weeks. Patient reports that on Sunday she noticed that it started to form a large pustule over the superior area of the lesion. Patient reports that her visiting nurse saw this and felt that she needed to come to the emergency department. She was started on Bactrim DS by her primary care physician for this two days ago. She has had 4 doses total of Bactrim. Patient denies any fever or chills, chest pain or shortness of breath. She also reports that she has some occasional shortness of breath with walking. She denies any chest pain. She is a smoker. She denies any history of diabetes. She reports that she supposed to follow-up with Dr. Vargas in regards to managing her lower extremity vascularity. Patient reports that she has an appointment on Sunday afternoon. 11/25/2016 Patient states to be feeling better. No fevers chills nausea vomiting diarrhea reported Brief history patient has a history of right lower extremity chronic cellulitis is followed by Dr. Vargas Is admitted to the hospital with worsening of the cellulitis with an open induration 11/26/2016 No new overnight events Patient denies having fevers chills nausea vomiting abdominal pain chest pain difficulty breathing Patient has had 4-5 bowel moments - Exam Physical exam Gen. appearance oriented 3 in no distress obese and lower extremity no significant pitting edema there is multiple areas of induration's and open wounds with serosanguineous discharge Neck is supple no JVD Lungs good air entry clear to auscultation no rhonchi or wheezing Heart S1-S2 heard regular rate and rhythm no murmurs appreciated Abdomen is soft nontender no organomegaly bowel sounds are intact Neurologically cranial nerves II-12 grossly intact no focal motor or sensory deficits noted Skin no abnormalities appreciated Assessment and Plan Plan: Acute on chronic lower extremity cellulitis #2 obesity #3 history of tobacco use with underlying COPD #4 concern for right lower lobe pneumonia #5 chronic diastolic heart failure with a mild acute component #6 indeterminate troponin leak #Dyslipidemia abx wound care Patient Condition at Discharge: Good Plan - Discharge Summary New Discharge Prescriptions: New Acetaminophen-Codeine 300-30mg [Tylenol w/codeine #3] 1 each PO Q4HR PRN #20 tab PRN Reason: Moderate Pain Carvedilol [Coreg] 3.125 mg PO BID-W/MEALS #60 tab Collagenase [Santyl] 1 applic TOPICAL DAILY #1 applic Lisinopril [Zestril] 2.5 mg PO DAILY #30 tab Nicotine 21Mg/24Hr Patch [Habitrol] 1 patch TRANSDERM DAILY #21 patch Spironolactone [Aldactone] 25 mg PO DAILY #30 tab Cephalexin [Keflex] 500 mg PO Q8HR #30 cap Continue Cholecalciferol [Vitamin D3] 2,000 unit PO DAILY Isosorbide Mononitrate ER [Imdur] 30 mg PO DAILY Warfarin Sodium [Coumadin] 6 mg PO MOT Warfarin [Coumadin] 3 mg PO Bumetanide [BUMEX] 0.5 mg PO BID Aspirin [Adult Low Dose Aspirin EC] 81 mg PO DAILY Phospha 250mg 500 mg PO QID Discontinued Sulfamethoxazole/Trimethoprim [Bactrim DS 800-160 mg] 1 tab PO BID Discharge Medication List Cholecalciferol [Vitamin D3] 2,000 unit PO DAILY 09/12/16 [History] Isosorbide Mononitrate ER [Imdur] 30 mg PO DAILY 09/12/16 [History] Warfarin Sodium [Coumadin] 6 mg PO MOTUTHFR 09/12/16 [History] Warfarin [Coumadin] 3 mg PO SUWESA 11/22/16 [History] Aspirin [Adult Low Dose Aspirin EC] 81 mg PO DAILY 11/24/16 [History] Bumetanide [BUMEX] 0.5 mg PO BID 11/24/16 [History] Phospha 250mg 500 mg PO QID 11/24/16 [History] Acetaminophen-Codeine 300-30mg [Tylenol w/codeine #3] 1 each PO Q4HR PRN #20 tab 11/27/16 [Rx] Carvedilol [Coreg] 3.125 mg PO BID-W/MEALS #60 tab 11/27/16 [Rx] Cephalexin [Keflex] 500 mg PO Q8HR #30 cap 11/27/16 [Rx] Collagenase [Santyl] 1 applic TOPICAL DAILY #1 applic 11/27/16 [Rx] Lisinopril [Zestril] 2.5 mg PO DAILY #30 tab 11/27/16 [Rx] Nicotine 21Mg/24Hr Patch [Habitrol] 1 patch TRANSDERM DAILY #21 patch 11/27/16 [ Rx] Spironolactone [Aldactone] 25 mg PO DAILY #30 tab 11/27/16 [Rx] Follow up Appointment(s)/Referral(s): Romario Pino MD [REFERRING] - 2 Weeks Salo Mendez DO [Primary Care Provider] - 1-2 days Praneeth Lind MD [STAFF PHYSICIAN] - 11/27/16 12:45 pm Ambulatory/Diagnostic Orders: Complete Blood Count w/diff [LAB.AMB] Time Frame: 3 Days, Location: Determined By Patient Prothrombin Time INR [LAB.AMB] Time Frame: 11/29/16, Location: Determined By Patient Patient Instructions/Handouts: Cellulitis (DC) Activity/Diet/Wound Care/Special Instructions: Antibx as per ID DC PATIENT SUNDAY AM SO SHE CAN GO TO WOUND CARE CENTER APPT AT 12:30-- DR. Lind No smoking Discharge Disposition: HOME WITH HOME HEALTH SERVICES
[2016-11-27] MEDS ORDERED: WARFARIN 3 MG TAB PO SCH (18:00)
== END 2016-11-27 12:46 | disposition home health service (06) | DRG 602 ==
LOC: EC 14:20 → 4MS4W 15:35
PROVIDERS: ADMIT Internal Medicine; ATTEND Internal Medicine
DX: L03.115 Cellulitis of right lower limb (principal); J18.9 Pneumonia, unspecified organism; I50.32 Chronic diastolic (congestive) heart failure; I11.0 Hypertensive heart disease with heart failure; I48.2 Chronic atrial fibrillation; J44.0 Chronic obstructive pulmonary disease with (acute) lower respiratory infection; L03.116 Cellulitis of left lower limb; I87.2 Venous insufficiency (chronic) (peripheral); I73.9 Peripheral vascular disease, unspecified; F17.200 Nicotine dependence, unspecified, uncomplicated; Z79.01 Long term (current) use of anticoagulants; Z79.82 Long term (current) use of aspirin; Z79.899 Other long term (current) drug therapy; Z85.42 Personal history of malignant neoplasm of other parts of uterus; Z96.653 Presence of artificial knee joint, bilateral; E66.9 Obesity, unspecified; E78.5 Hyperlipidemia, unspecified; I83.019 Varicose veins of right lower extremity with ulcer of unspecified site; H26.9 Unspecified cataract
CPT/HCPCS: 36415; 71020; 80048; 80053; 81003; 82550; 82553; 83605; 83880; 84484; 85025; 85610; 85730; 87040; 87070; 87086; 87205; 93005; 93306; 94640; 96365; 99285

== ENCOUNTER 2016-11-29 15:12 | Inpatient (IN) | payer MEDICARE, OTHER ==
--- NOTE | 2016-11-29 15:36 | ED ---
Skin/Abscess/FB HPI - General Source: patient, RN notes reviewed Mode of arrival: ambulatory Limitations: no limitations <Nabil Aldana - Last Filed: 11/29/16 16:57> <Mohan Peacock - Last Filed: 11/29/16 17:08> - General Chief complaint: Skin/Abscess/Foreign Body Stated complaint: infecrtiton Time Seen by Provider: 11/29/16 15:17 - History of Present Illness Initial comments: 65-year-old female presents emergency department via EMS chief complaint bilateral leg wounds. Patient states she was recently discharged for these wounds. Patient was being cared by visiting nurses today and felt that her right foot was discolored. Patient states that she cannot take care of her wounds at home and which they want the dressings changed daily until nurses only , return to 3 days. Patient states she is unable take care of her so she states. Patient denies any change in the size of her legs. She states she has normal chronic lower extremity swelling. She denies any fevers or chills. ( Nabil Aldana) - Related Data Home Medications Medication Instructions Recorded Confirmed Cholecalciferol [Vitamin D3] 2,000 unit PO DAILY 09/12/16 11/29/16 Isosorbide Mononitrate ER [Imdur] 30 mg PO DAILY 09/12/16 11/29/16 Warfarin Sodium [Coumadin] 6 mg PO MOTUTHFR 09/12/16 11/29/16 Warfarin [Coumadin] 3 mg PO SUWESA 11/22/16 11/29/16 Aspirin [Adult Low Dose Aspirin EC] 81 mg PO DAILY 11/24/16 11/29/16 Bumetanide [BUMEX] 0.5 mg PO BID 11/24/16 11/29/16 Phospha 250mg 500 mg PO QID 11/24/16 11/29/16 Acetaminophen-Codeine 300-30mg 1 tab PO Q4HR PRN 11/29/16 11/29/16 [Tylenol w/codeine #3] SILVER sulfADIAZINE Cream 1 applic TOPICAL DAILY 11/29/16 11/29/16 [Silvadene 1% Cream] Previous Rx's Medication Instructions Recorded Carvedilol [Coreg] 3.125 mg PO BID-W/MEALS #60 tab 11/27/16 Cephalexin [Keflex] 500 mg PO Q8HR #30 cap 11/27/16 Collagenase [Santyl] 1 applic TOPICAL DAILY #1 applic 11/27/16 Lisinopril [Zestril] 2.5 mg PO DAILY #30 tab 11/27/16 Spironolactone [Aldactone] 25 mg PO DAILY #30 tab 11/27/16 Allergies Allergy/AdvReac Type Severity Reaction Status Date / Time No Known Allergies Allergy Verified 11/29/16 16:02 Review of Systems ROS Other: All systems not noted in ROS Statement are negative. <Nabil Aldana - Last Filed: 11/29/16 16:57> ROS Other: All systems not noted in ROS Statement are negative. <Mohan Peacock - Last Filed: 11/29/16 17:08> ROS Statement: Those systems with pertinent positive or pertinent negative responses have been documented in the HPI. Past Medical History Past Medical History: Hypertension Additional Past Medical History / Comment(s): RT MUNGUIA HAS OPEN WOUND/ CELLULITIS. GOES TO [facility] EVERY SUNDAY.UTERINE CANCER. LT CATARACT History of Any Multi-Drug Resistant Organisms: None Reported Past Surgical History: Hysterectomy, Orthopedic Surgery Additional Past Surgical History / Comment(s): UZMA KNEE REPLACMENTS, RT ANKLE- METAL PLATE, RT ARM SX REPAIR D/T LACERATION. RT THUMB TENDON REPAIR," LT FOOT GREAT TOE BONE REMOVED". Past Anesthesia/Blood Transfusion Reactions: Blood Transfusion Reaction Additional Past Anesthesia/Blood Transfusion Reaction / Comment(s): PAST BLOOD [id number] Date of Last Stent Placement:: 2003 Past Psychological History: No Psychological Hx Reported Smoking Status: Current every day smoker Past Alcohol Use History: None Reported Past Drug Use History: None Reported - Past Family History Mother Family Medical History: No Reported History Father History Unknown: Yes <Nabil Aldana - Last Filed: 11/29/16 16:57> General Exam Limitations: no limitations General appearance: alert, in no apparent distress Respiratory exam: Present: normal lung sounds bilaterally. Absent: respiratory distress, wheezes, rales, rhonchi, stridor Cardiovascular Exam: Present: regular rate, normal rhythm, normal heart sounds. Absent: systolic murmur, diastolic murmur, rubs, gallop, clicks Extremities exam: Present: other (Right lower extremity there are ulcerations noted to the lateral tib-fib region pedal pulses are palpable bilaterally and confirmed with Doppler. There is extensive edema noted of both lower extremities.) Skin exam: Present: warm, dry, normal color. Absent: rash <Nabil Aldana - Last Filed: 11/29/16 16:57> Course <Nabil Aldana - Last Filed: 11/29/16 16:57> <Mohan Peacock - Last Filed: 11/29/16 17:08> Vital Signs 11/29/16 15:15 Temperature 97.2 F L Pulse Rate 77 Respiratory 16 Rate Blood Pressure 159/70 O2 Sat by Pulse 98 Oximetry - Reevaluation(s) Reevaluation #1: 11/29/16 17:08 I did personally evaluate the patient did discuss the findings the patient will be admitted the hospitalist service was notified. (Mohan Peacock) Medical Decision Making - Lab Data Result diagrams: 11/29/16 15:43 11/29/16 15:43 <Nabil Aldana - Last Filed: 11/29/16 16:57> - Lab Data Result diagrams: 11/29/16 15:43 11/29/16 15:43 <Mohan Peacock - Last Filed: 11/29/16 17:08> - Medical Decision Making 65-year-old female presented for leg wounds. Patient's on able take care of herself at home with his leg wounds. Patient needs to be admitted for wound care and placement. (Nabil Aldana) - Lab Data Lab Results 11/29/16 11/29/16 11/29/16 Range/Units 15:43 15:43 15:43 WBC 6.9 (3.8-10.6) k/uL RBC 4.15 (3.80-5.40) m/uL Hgb 12.4 (11.4-16.0) gm/dL Hct 37.9 (34.0-46.0) % MCV 91.4 (80.0-100.0) fL MCH 30.0 (25.0-35.0) pg MCHC 32.8 (31.0-37.0) g/dL RDW 17.4 H (11.5-15.5) % Plt Count 173 (150-450) k/uL Neutrophils % 77 % Lymphocytes % 13 % Monocytes % 6 % Eosinophils % 2 % Basophils % 1 % Neutrophils # 5.3 (1.3-7.7) k/uL Lymphocytes # 0.9 L (1.0-4.8) k/uL Monocytes # 0.4 (0-1.0) k/uL Eosinophils # 0.1 (0-0.7) k/uL Basophils # 0.1 (0-0.2) k/uL Anisocytosis Slight Sodium 141 (137-145) mmol/L Potassium 4.5 (3.5-5.1) mmol/L Chloride 108 H (98-107) mmol/L Carbon Dioxide 23 (22-30) mmol/L Anion Gap 10 mmol/L BUN 17 (7-17) mg/dL Creatinine 0.80 (0.52-1.04) mg/dL Est GFR (MDRD) Af Amer >60 (>60 ml/min/1.73 sqM) Est GFR (MDRD) Non-Af >60 (>60 ml/min/1.73 sqM) Glucose 104 H (74-99) mg/dL Plasma Lactic Acid Hayden 1.8 (0.7-2.0) mmol/L Calcium 10.7 H (8.4-10.2) mg/dL Total Bilirubin 0.9 (0.2-1.3) mg/dL AST 30 (14-36) U/L ALT 23 (9-52) U/L Alkaline Phosphatase 136 H (38-126) U/L Total Protein 6.6 (6.3-8.2) g/dL Albumin 3.4 L (3.5-5.0) g/dL Disposition <Nabil Aldana - Last Filed: 11/29/16 16:57> <Mohan Peacock - Last Filed: 11/29/16 17:08> Clinical Impression: Cellulitis of right leg, Venous insufficiency, Bilateral leg edema, Inability to perform activities of daily living Disposition: ADMITTED IP TO THIS HOSP Referrals: Salo Mendez DO [Primary Care Provider] - 1-2 days
[2016-11-29 16:10] LABS: Anisocytosis Slight; Basophils # (A) 0.1 k/uL (0-0.2); Basophils % (A) 1 %; CHCM 31.9; Eosinophils # (A) 0.1 k/uL (0-0.7); Eosinophils % (A) 2 %; HCT 37.9 % (34.0-46.0); HDW 2.57; HGB 12.4 gm/dL (11.4-16.0); Large Platelets Flag Slight; Luc % (Auto) 1; Lymphocytes # (A) 0.9 k/uL (1.0-4.8); Lymphocytes % (A) 13 %; MCHC 32.8 g/dL (31.0-37.0); MCV 91.4 fL (80.0-100.0); Monocytes # (A) 0.4 k/uL (0-1.0); Monocytes % (A) 6 %; Neutrophils # (A) 5.3 k/uL (1.3-7.7); Neutrophils % (A) 77 %; RBC 4.15 m/uL (3.80-5.40); RDW 17.4 % (11.5-15.5); WBC 6.9 k/uL (3.8-10.6); WBC (Perox) 6.93
[2016-11-29 16:24] LABS: ALT 23 U/L (9-52); AST 30 U/L (14-36); Alkaline Phosphatase 136 U/L (38-126); Anion Gap 10 mmol/L; Blood Urea Nitrogen 17 mg/dL (7-17); Calcium 10.7 mg/dL (8.4-10.2); Carbon Dioxide 23 mmol/L (22-30); Chloride 108 mmol/L (98-107); Glucose 104 mg/dL (74-99); Non-African American GFR(MDRD) >60 (>60 ml/min/1.73 sqM); Potassium 4.5 mmol/L (3.5-5.1); Sodium 141 mmol/L (137-145); Total Bilirubin 0.9 mg/dL (0.2-1.3); Total Protein 6.6 g/dL (6.3-8.2)
[2016-11-29] MEDS ORDERED: NALOXONE 0.4 MG/ML 1 ML VIAL IV PRN (16:58)
[2016-11-29] MEDS ORDERED: ACETAMINOPHEN TAB 325 MG TAB PO PRN (16:58)
[2016-11-29] MEDS ORDERED: ceFAZolin 1,000 MG in DEXTROSE/WATER 1 50ML.BAG IVPB STA (17:12)
[2016-11-29 19:12] LABS: INR 1.6 (<1.2); Prothrombin Time 15.8 sec (9.0-12.0)
[2016-11-29] MEDS: Acetaminophen-Codeine 300-30mg TAB PO PRN (19:26)
[2016-11-29] MEDS ORDERED: WARFARIN 3 MG TAB PO SCH (19:30)
[2016-11-29] MEDS: POTAS-SOD-PHOS 278-164-250 MG 1 EACH PACKET PO SCH (21:43)
[2016-11-29] MEDS: BUMETANIDE 0.5 MG TABLET PO SCH (21:43)
[2016-11-29] MEDS: ceFAZolin 1,000 MG in DEXTROSE/WATER 1 50ML.BAG IVPB SCH (23:40)
[2016-11-30] MEDS: ceFAZolin 1,000 MG in DEXTROSE/WATER 1 50ML.BAG IVPB SCH ×2 (05:21→11:48)
[2016-11-30] MEDS: CARVEDILOL 3.125 MG TAB PO SCH ×2 (08:26→17:24)
[2016-11-30] MEDS: LISINOPRIL 2.5 MG TAB PO SCH (08:27)
[2016-11-30] MEDS: ISOSORBIDE MONONITRATE ER 30 MG TAB.ER.24H PO SCH (08:27)
[2016-11-30] MEDS: POTAS-SOD-PHOS 278-164-250 MG 1 EACH PACKET PO SCH ×4 (08:27→22:28)
[2016-11-30] MEDS: NICOTINE 7MG/24HR PATCH TRANSDERM SCH (08:27)
[2016-11-30] MEDS: SPIRONOLACTONE 25 MG TAB PO SCH (08:27)
[2016-11-30] MEDS: BUMETANIDE 0.5 MG TABLET PO SCH ×2 (08:27→20:02)
[2016-11-30] MEDS: ASPIRIN 81 MG CHEW PO SCH (08:27)
[2016-11-30] MEDS: CHOLECALCIFEROL 1,000 UNIT TAB PO SCH (08:27)
[2016-11-30] MEDS: Acetaminophen-Codeine 300-30mg TAB PO PRN ×3 (08:41→20:02)
[2016-11-30 08:50] LABS: INR 1.6 (<1.2); Prothrombin Time 15.7 sec (9.0-12.0)
[2016-11-30] MEDS ORDERED: COLLAGENASE 250 UNIT/GM OINTMENT 30 GM TUBE TOPICAL SCH (09:00)
[2016-11-30] MEDS ORDERED: ceFAZolin 2,000 MG in DEXTROSE/WATER 1 50ML.BAG IVPB SCH (16:00)
--- NOTE | 2016-11-30 16:12 | P.HPIM ---
History of Present Illness H&P Date: 11/30/16 Chief Complaint: Lower extremity pain This is a 65-year-old female that was recently discharged from our service after being treated for right lower extremity cellulitis. Patient was to follow up with wound care. However patient apparently was noted to have worsening of her right lower extremity. Patient states that she is not able to care for self at home Patient was seen by her primary care doctor recommended a stay at a rehab facility for wound care and antibiotics Today patient states that after redressing she feels her normal self no fevers chills nausea vomiting diarrhea abdominal pain chest pain difficulty breathing is reported Patient needs help with ADLs support Patient does have a history of hypertension and atrial fibrillation on Coumadin at this time Review of Systems All systems: negative (Noted in HPI) Past Medical History Past Medical History: Hypertension Additional Past Medical History / Comment(s): RT MUNGUIA HAS OPEN WOUND/ CELLULITIS. GOES TO [facility] EVERY SUNDAY.UTERINE CANCER. LT CATARACT History of Any Multi-Drug Resistant Organisms: None Reported Past Surgical History: Hysterectomy, Orthopedic Surgery Additional Past Surgical History / Comment(s): UZMA KNEE REPLACMENTS, RT ANKLE- METAL PLATE, RT ARM SX REPAIR D/T LACERATION. RT THUMB TENDON REPAIR," LT FOOT GREAT TOE BONE REMOVED". Past Anesthesia/Blood Transfusion Reactions: Blood Transfusion Reaction Additional Past Anesthesia/Blood Transfusion Reaction / Comment(s): PAST BLOOD [id number] Date of Last Stent Placement:: 2003 Past Psychological History: No Psychological Hx Reported Additional Psychological History / Comment(s): PT LIVES ALONE IN [place]NO STEPS TO CLIMB. NO PETS. 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 Smoking Status: Current every day smoker Past Alcohol Use History: None Reported Additional Past Alcohol Use History / Comment(s): STARTED SMOKING AT AGE 14 USED TO SMOKE 1.5 PPD NOW DOWN TO 3-5 CIG PER DAY Past Drug Use History: None Reported - Past Family History Mother Family Medical History: No Reported History Father History Unknown: Yes Medications and Allergies Home Medications Medication Instructions Recorded Confirmed Type Cholecalciferol [Vitamin D3] 2,000 unit PO DAILY 09/12/16 11/29/16 History Isosorbide Mononitrate ER [Imdur] 30 mg PO DAILY 09/12/16 11/29/16 History Warfarin Sodium [Coumadin] 6 mg PO MOTUTHFR 09/12/16 11/29/16 History Warfarin [Coumadin] 3 mg PO SUWESA 11/22/16 11/29/16 History Aspirin [Adult Low Dose Aspirin EC] 81 mg PO DAILY 11/24/16 11/29/16 History Bumetanide [BUMEX] 0.5 mg PO BID 11/24/16 11/29/16 History Phospha 250mg 500 mg PO QID 11/24/16 11/29/16 History Acetaminophen-Codeine 300-30mg 1 tab PO Q4HR PRN 11/29/16 11/29/16 History [Tylenol w/codeine #3] SILVER sulfADIAZINE Cream 1 applic TOPICAL DAILY 11/29/16 11/29/16 History [Silvadene 1% Cream] Allergies Allergy/AdvReac Type Severity Reaction Status Date / Time No Known Allergies Allergy Verified 11/29/16 16:02 Physical Exam Vitals: Vital Signs Temp Pulse Pulse Resp BP BP Pulse Ox 11/30/16 15:00 97.0 F L 67 18 141/73 96 11/30/16 07:00 96.4 F L 64 16 139/62 96 11/29/16 23:00 98.0 F 76 18 140/68 97 11/29/16 20:22 97.9 F 94 16 151/72 96 11/29/16 19:29 18 11/29/16 18:28 98.6 F 79 18 145/73 98 11/29/16 17:28 97.8 F 75 16 146/68 97 Intake and Output 11/30/16 11/30/16 11/30/16 06:59 14:59 22:59 Other: # Voids 2 1 Physical exam Gen. appearance oriented 3 in no distress Neck is supple no JVD Lungs good air entry clear to auscultation no rhonchi or wheezing Heart S1-S2 heard regular rate and rhythm no murmurs appreciated Abdomen is soft nontender no organomegaly bowel sounds are intact Neurologically cranial nerves II-12 grossly intact no focal motor or sensory deficits noted Right lower extremity dressing is noted over the right lower extremity underneath the knee Results CBC & Chem 7: 11/29/16 15:43 11/29/16 15:43 Labs: Abnormal Lab Results - Last 24 Hours (Table) 0711/29/16 11/29/16 Range/Units 15:43 15:43 18:42 RDW 17.4 H (11.5-15.5) % Lymphocytes # 0.9 L (1.0-4.8) k/uL PT 15.8 H (9.0-12.0) sec INR 1.6 H (<1.2) Chloride 108 H (98-107) mmol/L Glucose 104 H (74-99) mg/dL Calcium 10.7 H (8.4-10.2) mg/dL Alkaline Phosphatase 136 H (38-126) U/L Albumin 3.4 L (3.5-5.0) g/dL 11/30/16 Range/Units 08:13 RDW (11.5-15.5) % Lymphocytes # (1.0-4.8) k/uL PT 15.7 H (9.0-12.0) sec INR 1.6 H (<1.2) Chloride (98-107) mmol/L Glucose (74-99) mg/dL Calcium (8.4-10.2) mg/dL Alkaline Phosphatase (38-126) U/L Albumin (3.5-5.0) g/dL Thrombosis Risk Factor Assmnt - Choose All That Apply Each Factor Represents 1 point: Heart failure (<1month), Swollen legs (current) Each Risk Factor Represents 2 Points: Age 61-74 years Thrombosis Risk Factor Assessment Total Risk Factor Score: 4 Thrombosis Risk Factor Assessment Level: Moderate Risk Assessment and Plan Plan: #1 chronic right lower x-ray cellulitis with slight worsening #2 obesity #3 history of COPD that is stable #4 chronic diastolic heart failure with no acute component Dyslipidemia Plan PT/OT IV antibiotics to continue Wound care. Will likely benefit from a stay at the snf
[2016-11-30] MEDS ORDERED: WARFARIN 3 MG TAB PO SCH (18:00)
--- NOTE | 2016-11-30 19:01 | CONS ---
DATE OF SERVICE: 11/30/2016 REASON FOR CONSULTATION: Right lower extremity cellulitis. HISTORY OF PRESENT ILLNESS: The patient is a 65-year-old female who was recently admitted to this facility, where the patient did have a blister formation to the right leg with secondary cellulitis. The patient was treated with cefazolin and did have improvement. Patient was ( ) to be discharged on Sunday, as the patient was supposed to follow up in the wound care center with Dr. Lind. She was discharged on oral Keflex. Subsequently the patient was at home and did have a visit by the home care nurse, who thought the leg was more swollen and red. The patient was unable to take care of herself. She recommended that the patient be admitted to the hospital for possible placement. The patient was evaluated by the ER physician. She was started on cefazolin. I was asked to see her for further recommendations regarding antibiotic therapy. The patient at this time is afebrile. She did have some dull aching pain to the leg but no worsening. She has some clear drainage from it. The patient denies significant chest pain. No shortness of breath or cough. No abdominal pain or any diarrhea. REVIEW OF SYSTEMS: CONSTITUTIONAL: Positive for weakness but no fever. EYES: No complaint. ENT: No complaint. RESPIRATORY: As per HPI. CARDIOVASCULAR: No complaint. GENITOURINARY: No complaint. GASTROINTESTINAL: No complaint. MUSCULOSKELETAL: No complaint. INTEGUMENTARY: As per HPI. PSYCHOLOGIC: No complaint. ENDOCRINE: No complaint. NEUROLOGIC: No complaint. PAST MEDICAL HISTORY: 1. Hypertension. 2. Atrial fibrillation. 3. Congestive heart failure. 4. Lower extremity cellulitis. PAST SURGICAL HISTORY: Hysterectomy. SOCIAL HISTORY: No smoking, drinking or drug use. FAMILY HISTORY: No pertinent findings noticed. ALLERGIES: NO KNOWN DRUG ALLERGIES. Medication current includes: 1. Tylenol. 2. Aspirin. 3. Bumetanide. 4. Coreg. 5. Cefazolin 1 gram q.6. 6. Imdur. 7. Zestril. 8. Narcan. 9. Neutra-Phos. 10. Nicotine patch. 11. Aldactone. 12. Coumadin. On examination, blood pressure is 139/62 with a pulse of 54, temperature 96.4. She is 96% on room air. General description is an elderly female up in the chair in no distress. No tachypnea or accessory muscle of respiration use. HEENT examination shows no pallor or scleral icterus. Oral mucous membrane is dry. NECK: Trachea is central. No thyromegaly. LUNGS: Unlabored breathing. Clear to auscultation anteriorly. No wheeze or crackle. HEART: S1, S2. Irregular rhythm. ABDOMEN: Soft. No tenderness. No guarding or rigidity. Right leg with some superficial laceration. Very minimal erythema. No slough tissue. No surrounding redness or any drainage. Neurologically patient is awake, alert, oriented x3. Mood and affect normal. LABS: Hemoglobin is 12.4, white count 6.9 with a BUN of 17, creatinine of 0.80. Patient did have previous culture from the left leg which shows klebsiella, enterobacter and group G strep. DIAGNOSTIC IMPRESSION AND PLAN: Patient with a right lower extremity superficial wound with minimal cellulitis with diffuse swelling and redness, likely a streptococcal disease. PLAN: 1. Will apply Aquacel Silver dry to the wound followed by light Craig wrap to be changed daily. 2. Antibiotic was adjusted to cefazolin 2 grams q.8. 3. Will follow up on the clinical condition and cultures to further adjust medication if needed. Thank you for this consultation. Will follow this patient along with you. GLORIA
[2016-11-30] MEDS: ceFAZolin 2 GM in SODIUM CHLORIDE 0.9% 100 ML IVPB SCH (20:02)
[2016-12-01] MEDS: ceFAZolin 2 GM in SODIUM CHLORIDE 0.9% 100 ML IVPB SCH ×2 (05:18→12:11)
[2016-12-01 07:34] VITALS: PULSE 70
[2016-12-01] MEDS: LISINOPRIL 2.5 MG TAB PO SCH (08:01)
[2016-12-01] MEDS: SPIRONOLACTONE 25 MG TAB PO SCH (08:01)
[2016-12-01] MEDS: POTAS-SOD-PHOS 278-164-250 MG 1 EACH PACKET PO SCH ×2 (08:01→12:11)
[2016-12-01] MEDS: NICOTINE 7MG/24HR PATCH TRANSDERM SCH (08:01)
[2016-12-01] MEDS: CHOLECALCIFEROL 1,000 UNIT TAB PO SCH (08:01)
[2016-12-01] MEDS: ASPIRIN 81 MG CHEW PO SCH (08:01)
[2016-12-01] MEDS: BUMETANIDE 0.5 MG TABLET PO SCH (08:01)
[2016-12-01] MEDS: ISOSORBIDE MONONITRATE ER 30 MG TAB.ER.24H PO SCH (08:01)
[2016-12-01] MEDS: CARVEDILOL 3.125 MG TAB PO SCH (08:01)
[2016-12-01 15:00] VITALS: BP 114/74; RESP 18; TEMP 97
--- NOTE | 2016-12-01 16:58 | PN ---
DATE OF SERVICE: 12/01/2016 REASON FOR FOLLOWUP: Right lower extremity wound and cellulitis. INTERVAL HISTORY: The patient is afebrile. She has been breathing comfortably. Denies having any chest pain or shortness of breath. Occasional cough. No pain in the right leg. No diarrhea. On examination, blood pressure is 114/74 with a pulse of 70, temperature 97. She is 94% on room air. General description is an elderly female up in the chair in no distress. RESPIRATORY SYSTEM: Unlabored breathing. Clear to auscultation anteriorly. HEART: S1. S2. Regular rate and rhythm. ABDOMEN: Soft. No tenderness. Right leg wound is currently dressed up. No obvious drainage on the dressing. LABS: INR is 1.6. No other blood work has been done. DIAGNOSTIC IMPRESSION AND PLAN: Patient with a right lower extremity wound with secondary cellulitis. Patient has shown overall clinical improvement on cefazolin. That will be continued. Finish therapy with oral Keflex. Aquacel Silver dressing to the wound. Outpatient followup. GLORIA
--- NOTE | 2016-12-05 11:39 | P.DS ---
Providers Date of admission: 11/29/16 17:07 Attending physician: Hanane Simons Consults: 11/29/16 18:31 Consult Physician Routine Consulting Provider: Katalina Pino Consult Reason/Comments: known pt, r leg. cellulitis Do you want consulting provider notified?: Yes Primary care physician: [facility] Course: This is a 65-year-old female that was recently discharged from our service after being treated for right lower extremity cellulitis. Patient was to follow up with wound care. However patient apparently was noted to have worsening of her right lower extremity. Patient states that she is not able to care for self at home Patient was seen by her primary care doctor recommended a stay at a rehab facility for wound care and antibiotics Today patient states that after redressing she feels her normal self no fevers chills nausea vomiting diarrhea abdominal pain chest pain difficulty breathing is reported Patient needs help with ADLs support Patient does have a history of hypertension and atrial fibrillation on Coumadin at this time Physical exam Gen. appearance oriented 3 in no distress Neck is supple no JVD Lungs good air entry clear to auscultation no rhonchi or wheezing Heart S1-S2 heard regular rate and rhythm no murmurs appreciated Abdomen is soft nontender no organomegaly bowel sounds are intact Neurologically cranial nerves II-12 grossly intact no focal motor or sensory deficits noted Right lower extremity dressing is noted over the right lower extremity underneath the knee Assessment and Plan Plan: #1 chronic right lower x-ray cellulitis with slight worsening #2 obesity #3 history of COPD that is stable #4 chronic diastolic heart failure with no acute component Dyslipidemia dc to snf wound care ADL support IV abx. Plan - Discharge Summary New Discharge Prescriptions: Continue Cholecalciferol [Vitamin D3] 2,000 unit PO DAILY Isosorbide Mononitrate ER [Imdur] 30 mg PO DAILY Warfarin Sodium [Coumadin] 6 mg PO MOTUTHFR Warfarin [Coumadin] 3 mg PO SUWESA Bumetanide [BUMEX] 0.5 mg PO BID Aspirin [Adult Low Dose Aspirin EC] 81 mg PO DAILY Phospha 250mg 500 mg PO QID Carvedilol [Coreg] 3.125 mg PO BID-W/MEALS #60 tab Collagenase [Santyl] 1 applic TOPICAL DAILY #1 applic Lisinopril [Zestril] 2.5 mg PO DAILY #30 tab Spironolactone [Aldactone] 25 mg PO DAILY #30 tab Cephalexin [Keflex] 500 mg PO Q8HR #30 cap SILVER sulfADIAZINE Cream [Silvadene 1% Cream] 1 applic TOPICAL DAILY Acetaminophen-Codeine 300-30mg [Tylenol w/codeine #3] 1 tab PO Q4HR PRN PRN Reason: Moderate Pain Discharge Medication List Cholecalciferol [Vitamin D3] 2,000 unit PO DAILY 09/12/16 [History] Isosorbide Mononitrate ER [Imdur] 30 mg PO DAILY 09/12/16 [History] Warfarin Sodium [Coumadin] 6 mg PO MOTUTHFR 09/12/16 [History] Warfarin [Coumadin] 3 mg PO SUWESA 11/22/16 [History] Aspirin [Adult Low Dose Aspirin EC] 81 mg PO DAILY 11/24/16 [History] Bumetanide [BUMEX] 0.5 mg PO BID 11/24/16 [History] Phospha 250mg 500 mg PO QID 11/24/16 [History] Carvedilol [Coreg] 3.125 mg PO BID-W/MEALS #60 tab 11/27/16 [Rx] Cephalexin [Keflex] 500 mg PO Q8HR #30 cap 11/27/16 [Rx] Collagenase [Santyl] 1 applic TOPICAL DAILY #1 applic 11/27/16 [Rx] Lisinopril [Zestril] 2.5 mg PO DAILY #30 tab 11/27/16 [Rx] Spironolactone [Aldactone] 25 mg PO DAILY #30 tab 11/27/16 [Rx] Acetaminophen-Codeine 300-30mg [Tylenol w/codeine #3] 1 tab PO Q4HR PRN [History] SILVER sulfADIAZINE Cream [Silvadene 1% Cream] 1 applic TOPICAL DAILY 11/29/16 [ History] Follow up Appointment(s)/Referral(s): Salo Mendez DO [Primary Care Provider] - 1-2 days Katalina Pino MD [STAFF PHYSICIAN] - 1 Week Discharge Disposition: TRANSFER TO [facility], [facility]
== END 2016-12-01 15:27 | DRG 603 ==
LOC: EC 15:12 → 4MS4W 17:07
PROVIDERS: ADMIT Internal Medicine; ATTEND Internal Medicine
DX: L03.115 Cellulitis of right lower limb (principal); I50.32 Chronic diastolic (congestive) heart failure; I11.0 Hypertensive heart disease with heart failure; I48.91 Unspecified atrial fibrillation; E78.5 Hyperlipidemia, unspecified; E66.9 Obesity, unspecified; F17.200 Nicotine dependence, unspecified, uncomplicated; I87.2 Venous insufficiency (chronic) (peripheral); J44.9 Chronic obstructive pulmonary disease, unspecified; R60.9 Edema, unspecified; Z79.01 Long term (current) use of anticoagulants; Z79.82 Long term (current) use of aspirin; Z79.899 Other long term (current) drug therapy; Z96.653 Presence of artificial knee joint, bilateral; Z96.698 Presence of other orthopedic joint implants; Z85.42 Personal history of malignant neoplasm of other parts of uterus
CPT/HCPCS: 36415; 80053; 83605; 85025; 85610; 87040; 96365; 99284

== ENCOUNTER 2017-10-27 09:02 | Inpatient (IN) | payer MEDICARE, OTHER ==
--- NOTE | 2017-10-27 09:50 | ED ---
General Adult HPI - General Chief complaint: Dizziness Stated complaint: Dizziness Time Seen by Provider: 10/27/17 09:17 Source: patient, EMS, RN notes reviewed Mode of arrival: EMS Limitations: no limitations - History of Present Illness Initial comments: Patient is a pleasant 66-year-old female presenting to the emergency department following a syncopal episode. Episode occurred higher to arrival. Patient was smoking with a friend. Patient then went inside and sat down and passed out. Patient was not feeling well prior to this episode. Patient felt lightheaded and sweaty. Patient is unclear how long the event occurred. Patient feels near normal at this time. No chest pain. No dyspnea. No abdominal pain. No headache or confusion or weakness. - Related Data Home Medications Medication Instructions Recorded Confirmed Cholecalciferol [Vitamin D3] 2,000 unit PO DAILY 09/12/16 12/18/16 Isosorbide Mononitrate ER [Imdur] 30 mg PO DAILY 09/12/16 12/18/16 Warfarin Sodium [Coumadin] 6 mg PO MOTUTHFR 09/12/16 12/18/16 Warfarin [Coumadin] 3 mg PO SUWESA 11/22/16 12/18/16 Aspirin [Adult Low Dose Aspirin EC] 81 mg PO DAILY 11/24/16 12/18/16 Bumetanide [BUMEX] 0.5 mg PO BID 11/24/16 12/18/16 Phospha 250mg 500 mg PO QID 11/24/16 12/18/16 Acetaminophen-Codeine 300-30mg 1 tab PO Q4HR PRN 11/29/16 12/18/16 [Tylenol w/codeine #3] SILVER sulfADIAZINE Cream 1 applic TOPICAL DAILY 11/29/16 12/18/16 [Silvadene 1% Cream] Previous Rx's Medication Instructions Recorded Carvedilol [Coreg] 3.125 mg PO BID-W/MEALS #60 tab 11/27/16 Cephalexin [Keflex] 500 mg PO Q8HR #30 cap 11/27/16 Collagenase [Santyl] 1 applic TOPICAL DAILY #1 applic 11/27/16 Lisinopril [Zestril] 2.5 mg PO DAILY #30 tab 11/27/16 Spironolactone [Aldactone] 25 mg PO DAILY #30 tab 11/27/16 Allergies Allergy/AdvReac Type Severity Reaction Status Date / Time No Known Allergies Allergy Verified 12/18/16 14:24 Review of Systems ROS Statement: Those systems with pertinent positive or pertinent negative responses have been documented in the HPI. ROS Other: All systems not noted in ROS Statement are negative. Constitutional: Denies: fever Eyes: Denies: eye pain ENT: Denies: ear pain Respiratory: Denies: cough Cardiovascular: Denies: chest pain Endocrine: Denies: fatigue Gastrointestinal: Denies: abdominal pain Genitourinary: Denies: dysuria Musculoskeletal: Denies: back pain Skin: Denies: rash Neurological: Denies: headache, weakness Past Medical History Past Medical History: Atrial Fibrillation, Heart Failure, Hypertension Additional Past Medical History / Comment(s): RT MUNGUIA HAS OPEN WOUND/ CELLULITIS. GOES TO [facility] EVERY SUNDAY.UTERINE CANCER. LT CATARACT History of Any Multi-Drug Resistant Organisms: None Reported Past Surgical History: Heart Catheterization With Stent, Hysterectomy, Orthopedic Surgery Additional Past Surgical History / Comment(s): UZMA KNEE REPLACMENTS, RT ANKLE- METAL PLATE, RT ARM SX REPAIR D/T LACERATION. RT THUMB TENDON REPAIR," LT FOOT GREAT TOE BONE REMOVED". Stent x 2 (2003) Past Anesthesia/Blood Transfusion Reactions: Blood Transfusion Reaction Additional Past Anesthesia/Blood Transfusion Reaction / Comment(s): PAST BLOOD [id number] Date of Last Stent Placement:: 2003 Past Psychological History: No Psychological Hx Reported Smoking Status: Current every day smoker Past Alcohol Use History: None Reported Past Drug Use History: None Reported - Past Family History Mother Family Medical History: No Reported History Father History Unknown: Yes General Exam Limitations: no limitations General appearance: alert, in no apparent distress Head exam: Present: atraumatic Eye exam: Present: normal appearance, PERRL, EOMI. Absent: nystagmus ENT exam: Present: normal oropharynx Neck exam: Present: normal inspection Respiratory exam: Present: normal lung sounds bilaterally Cardiovascular Exam: Present: regular rate, irregular rhythm Expanded Peripheral pulses: 2+: Radial (R), Radial (L), Dorsalis Pedis (R), Dorsalis Pedis (L) GI/Abdominal exam: Present: soft. Absent: tenderness Extremities exam: Present: normal inspection. Absent: pedal edema, calf tenderness Neurological exam: Present: alert, oriented X3, CN II-XII intact. Absent: motor sensory deficit Expanded Neurological exam: Present: protecting the airway Speech: Present: fluid speech Cranial nerves: EOM's Intact: Normal, Facial Sensation: Normal Sensory exam: Upper Extremity Light Touch: Normal, Lower Extremity Light Touch: Normal Motor strength exam: RUE: 5, LUE: 5, RLE: 5, LLE: 5 Eye Response: (4) open spontaneously Motor Response: (6) obeys commands Verbal Response: (5) oriented Psychiatric exam: Present: normal affect, normal mood Skin exam: Present: normal color Course Vital Signs 10/27/17 10/27/17 09:03 10:47 Temperature 97.5 F L Pulse Rate 73 81 Respiratory 18 20 Rate Blood Pressure 115/58 113/58 O2 Sat by Pulse 91 L 99 Oximetry EKG Findings - EKG Comments: EKG Findings:: A. fib with rate of 70. Her S1 10. QT 386. QTc 416. Left axis. Septal Q waves. Inferior Q waves. T-wave inversion laterally. Medical Decision Making - Medical Decision Making Patient reevaluated and resting comfortably in bed. Patient updated on results and plan. BNP has been ordered as well as orthostatics. Case was discussed with Dr. warren, covering for Dr. bullard, who admits for Dr. Olivia. He will admit. Cardiology will be placed on consult. - Lab Data Result diagrams: 10/27/17 09:18 10/27/17 09:18 Lab Results 10/27/17 10/27/17 10/27/17 Range/Units 09:18 09:18 09:18 WBC 8.5 (3.8-10.6) k/uL RBC 4.43 (3.80-5.40) m/uL Hgb 13.5 (11.4-16.0) gm/dL Hct 41.8 (34.0-46.0) % MCV 94.3 (80.0-100.0) fL MCH 30.4 (25.0-35.0) pg MCHC 32.3 (31.0-37.0) g/dL RDW 15.6 H (11.5-15.5) % Plt Count 192 (150-450) k/uL Neutrophils % 77 % Lymphocytes % 14 % Monocytes % 5 % Eosinophils % 2 % Basophils % 1 % Neutrophils # 6.5 (1.3-7.7) k/uL Lymphocytes # 1.2 (1.0-4.8) k/uL Monocytes # 0.4 (0-1.0) k/uL Eosinophils # 0.2 (0-0.7) k/uL Basophils # 0.1 (0-0.2) k/uL PT (9.0-12.0) sec INR (<1.2) APTT (22.0-30.0) sec Sodium 137 (137-145) mmol/L Potassium 4.8 (3.5-5.1) mmol/L Chloride 103 (98-107) mmol/L Carbon Dioxide 22 (22-30) mmol/L Anion Gap 12 mmol/L BUN 49 H (7-17) mg/dL Creatinine 1.17 H (0.52-1.04) mg/dL Est GFR (CKD-EPI)AfAm 55 (>60 ml/min/1.73 sqM) Est GFR (CKD-EPI)NonAf 48 (>60 ml/min/1.73 sqM) Glucose 136 H (74-99) mg/dL Calcium 10.9 H (8.4-10.2) mg/dL Total Bilirubin 0.4 (0.2-1.3) mg/dL AST 24 (14-36) U/L ALT 28 (9-52) U/L Alkaline Phosphatase 177 H (38-126) U/L Total Creatine Kinase 29 L (30-135) U/L CK-MB (CK-2) 1.2 (0.0-2.4) ng/mL CK-MB (CK-2) Rel Index 4.1 Troponin I 0.030 (0.000-0.034) ng/mL Total Protein 7.3 (6.3-8.2) g/dL Albumin 4.0 (3.5-5.0) g/dL Urine Color Urine Appearance (Clear) Urine pH (5.0-8.0) Ur Specific Coulter (1.001-1.035) Urine Protein (Negative) Urine Glucose (UA) (Negative) Urine Ketones (Negative) Urine Blood (Negative) Urine Nitrite (Negative) Urine Bilirubin (Negative) Urine Urobilinogen (<2.0) mg/dL Ur Leukocyte Esterase (Negative) Urine RBC (0-5) /hpf Urine WBC (0-5) /hpf Ur Squamous Epith Cells (0-4) /hpf Urine Bacteria (None) /hpf Hyaline Casts (0-2) /lpf Urine Mucus (None) /hpf Urine Yeast (Budding) (None) /hpf 10/27/17 10/27/17 Range/Units 09:18 11:00 WBC (3.8-10.6) k/uL RBC (3.80-5.40) m/uL Hgb (11.4-16.0) gm/dL Hct (34.0-46.0) % MCV (80.0-100.0) fL MCH (25.0-35.0) pg MCHC (31.0-37.0) g/dL RDW (11.5-15.5) % Plt Count (150-450) k/uL Neutrophils % % Lymphocytes % % Monocytes % % Eosinophils % % Basophils % % Neutrophils # (1.3-7.7) k/uL Lymphocytes # (1.0-4.8) k/uL Monocytes # (0-1.0) k/uL Eosinophils # (0-0.7) k/uL Basophils # (0-0.2) k/uL PT 10.1 (9.0-12.0) sec INR 1.0 (<1.2) APTT 25.3 (22.0-30.0) sec Sodium (137-145) mmol/L Potassium (3.5-5.1) mmol/L Chloride (98-107) mmol/L Carbon Dioxide (22-30) mmol/L Anion Gap mmol/L BUN (7-17) mg/dL Creatinine (0.52-1.04) mg/dL Est GFR (CKD-EPI)AfAm (>60 ml/min/1.73 sqM) Est GFR (CKD-EPI)NonAf (>60 ml/min/1.73 sqM) Glucose (74-99) mg/dL Calcium (8.4-10.2) mg/dL Total Bilirubin (0.2-1.3) mg/dL AST (14-36) U/L ALT (9-52) U/L Alkaline Phosphatase (38-126) U/L Total Creatine Kinase (30-135) U/L CK-MB (CK-2) (0.0-2.4) ng/mL CK-MB (CK-2) Rel Index Troponin I (0.000-0.034) ng/mL Total Protein (6.3-8.2) g/dL Albumin (3.5-5.0) g/dL Urine Color Light Yellow Urine Appearance Clear (Clear) Urine pH 5.0 (5.0-8.0) Ur Specific Coulter 1.009 (1.001-1.035) Urine Protein Negative (Negative) Urine Glucose (UA) Negative (Negative) Urine Ketones Negative (Negative) Urine Blood Trace H (Negative) Urine Nitrite Negative (Negative) Urine Bilirubin Negative (Negative) Urine Urobilinogen <2.0 (<2.0) mg/dL Ur Leukocyte Esterase Negative (Negative) Urine RBC 2 (0-5) /hpf Urine WBC 1 (0-5) /hpf Ur Squamous Epith Cells 1 (0-4) /hpf Urine Bacteria Rare H (None) /hpf Hyaline Casts 11 H (0-2) /lpf Urine Mucus Rare H (None) /hpf Urine Yeast (Budding) Occasional H (None) /hpf - Radiology Data Radiology results: report reviewed (Computed tomography scan of the brain reveals no acute abnormality.), image reviewed (Chest x-ray shows cardiomegaly and diffuse interstitial prominence. Possible mild vascular congestion.) Disposition Clinical Impression: Syncope Disposition: ADMITTED IP TO THIS HOSP Is patient prescribed a controlled substance at d/c from ED?: No Referrals: Roberto Saunders MD [Primary Care Provider] - 1-2 days Decision Time: 11:39
[2017-10-27 10:13] LABS: Basophils # (A) 0.1 k/uL (0-0.2); Basophils % (A) 1 %; Eosinophils # (A) 0.2 k/uL (0-0.7); Eosinophils % (A) 2 %; HCT 41.8 % (34.0-46.0); HGB 13.5 gm/dL (11.4-16.0); Lymphocytes # (A) 1.2 k/uL (1.0-4.8); Lymphocytes % (A) 14 %; MCH 30.4 pg (25.0-35.0); MCHC 32.3 g/dL (31.0-37.0); MCV 94.3 fL (80.0-100.0); Mean Platelet Volume 10.7; Monocytes # (A) 0.4 k/uL (0-1.0); Monocytes % (A) 5 %; Neutrophils # (A) 6.5 k/uL (1.3-7.7); Neutrophils % (A) 77 %; Platelet Count 192 k/uL (150-450); RBC 4.43 m/uL (3.80-5.40); RDW 15.6 % (11.5-15.5); WBC 8.5 k/uL (3.8-10.6)
[2017-10-27 10:26] LABS: Partial Thromboplastin Time 25.3 sec (22.0-30.0); Prothrombin Time 10.1 sec (9.0-12.0)
[2017-10-27 10:34] LABS: Calcium 10.9 mg/dL (8.4-10.2); Potassium 4.8 mmol/L (3.5-5.1); Total Bilirubin 0.4 mg/dL (0.2-1.3); Total Protein 7.3 g/dL (6.3-8.2)
--- NOTE | 2017-10-27 10:43 | CT ---
EXAMINATION TYPE: CT brain wo con DATE OF EXAM: 10/27/2017 COMPARISON: NONE HISTORY: 66-year-old female complains of dizziness and syncopal episode. TECHNIQUE: Examination was done in axial plane without intravenous contrast. Coronal and sagittal r econstructions performed. CT DLP: 788.8 mGycm Automated exposure control for dose reduction was used. FINDINGS: There is no evidence of acute intracranial hemorrhage, acute ischemic changes, mass, mass-effect, or extra-axial fluid collection. There is no effacement of cerebral sulci or basal subarachnoid cister ns. There is no hydrocephalus. There is no midline shift. Back-white matter distinction is preserv ed. Paranasal sinuses and mastoid air cells are well pneumatized. Orbits and globes are intact. IMPRESSION: No acute intracranial abnormality seen.
[2017-10-27 10:44] LABS: Creatine Kinase MB 1.2 ng/mL (0.0-2.4); Troponin I 0.03 ng/mL (0.000-0.034)
[2017-10-27 11:21] LABS: Appearance,Urine Clear (Clear); Bacteria,Urine Rare /hpf; Bilirubin,Urine Negative (Negative); Blood,Urine Trace (Negative); Budding Yeast,Urine Occasional /hpf; Color,Urine Light Yellow; Glucose,Urine (UA) Negative (Negative); Hyaline Casts,Urine 11 /lpf (0-2); Ketones,Urine Negative (Negative); Leukocyte Esterase,Urine Negative (Negative); Mucus,Urine Rare /hpf; Nitrite,Urine Negative (Negative); Protein,Urine Negative (Negative); RBC,Urine 2 /hpf (0-5); Specific Gravity,Urine 1.009 (1.001-1.035); Squamous Epithelial Cell,Urine 1 /hpf (0-4); Urobilinogen,Urine <2.0 mg/dL (<2.0); WBC,Urine 1 /hpf (0-5)
--- NOTE | 2017-10-27 11:25 | XR ---
EXAMINATION TYPE: XR chest 2V DATE OF EXAM: 10/27/2017 COMPARISON: 11/25/2016 HISTORY: 66-year-old female with syncope TECHNIQUE: AP and lateral views FINDINGS: Heart mildly enlarged. Diffuse interstitial prominence. Scattered strandy areas of scarring mid to lo wer lungs. No pleural effusion. No yolanda consolidation. IMPRESSION: Cardiomegaly and diffuse interstitial prominence. Correlated to exclude mild pulmonary vascular conge stion. No pleural effusion or yolanda consolidation.
[2017-10-27] MEDS ORDERED: NALOXONE 0.4 MG/ML 1 ML VIAL IV PRN (11:39)
[2017-10-27 14:33] VITALS: BMI 45.3
[2017-10-27] MEDS: SODIUM CHLORIDE 0.9% 1,000 ML IV SCH (16:04)
[2017-10-27 16:30] LABS: Creatine Kinase MB 1.2 ng/mL (0.0-2.4); Troponin I 0.019 ng/mL (0.000-0.034)
[2017-10-27] MEDS: ALLOPURINOL 100 MG TAB PO SCH (19:16)
[2017-10-27] MEDS: CINACALCET 30 MG TAB PO SCH (19:53)
[2017-10-27] MEDS: APIXABAN 5 MG TAB PO SCH (19:53)
[2017-10-27 22:15] LABS: Creatine Kinase MB 1.2 ng/mL (0.0-2.4); Troponin I 0.022 ng/mL (0.000-0.034)
--- NOTE | 2017-10-27 23:58 | P.HPIM ---
History of Present Illness H&P Date: 10/27/17 Chief Complaint: Syncope Patient is a 66-year-old female has a known history of hypertension, coronary artery disease stent placement and atrial fibrillation on anticoagulation came to ER after a syncopal episode at home. Patient went out to smoke and came back to the house and sat on the couch and suddenly she passed out. Patient's friend noticed it and called EMS. Patient says that she passed about second a few seconds. Patient was not feeling well prior to the episode. She felt lightheaded and sweaty. Currently patient denied any dizziness or lightheadedness. No chest pain. No exertional short of breath. No recent illnesses. No nausea vomiting or abdominal pain or diarrhea. No confusion or shaking movements are noted. No bladder or bowel incontinence. Patient did take her blood pressure medication this morning. Blood pressure was low when she came to the hospital. Patient was given fluid bolus in the ER. Chest x-ray showed cardiomegaly and diffuse interstitial prominence. Correlate to exclude mild pulmonary vascular congestion. No pleural fluid or yolanda consolidation. EKG showed atrial fibrillation with PACs CT head showed no acute intracranial process BUN 49 and creatinine 1.17 BNP 1030 Review of Systems Constitutional: Patient denies any fever or chills . No generalized weakness or weight loss. Abdomen: Patient denied nausea vomiting and diarrhea and abdominal pain. Cardiovascular: Patient denies any chest pain or short of breath no palpitations. Respiratory: patient denied any cough is from production. No shortness of breath Neurologic: Patient denied any numbness or tingling headache. Musculoskeletal: Patient denies any complaints of joint swelling or deformity. Skin: Negative Psychiatric: Negative Endocrine: No heat or cold intolerance. No recent weight gain. Genitourinary: No dysuria or hematuria. All other 14 point ROS negative except the above Past Medical History Past Medical History: Atrial Fibrillation, Heart Failure, Hypertension Additional Past Medical History / Comment(s): RT MUNGUIA HAS OPEN WOUND/ CELLULITIS. GOES TO [facility] EVERY SUNDAY.UTERINE CANCER. LT CATARACT History of Any Multi-Drug Resistant Organisms: None Reported Past Surgical History: Heart Catheterization With Stent, Hysterectomy, Orthopedic Surgery Additional Past Surgical History / Comment(s): UZMA KNEE REPLACMENTS, RT ANKLE- METAL PLATE, RT ARM SX REPAIR D/T LACERATION. RT THUMB TENDON REPAIR," LT FOOT GREAT TOE BONE REMOVED". Stent x 2 (2003) Past Anesthesia/Blood Transfusion Reactions: Blood Transfusion Reaction Additional Past Anesthesia/Blood Transfusion Reaction / Comment(s): PAST BLOOD [id number] Date of Last Stent Placement:: 2003 Past Psychological History: No Psychological Hx Reported Smoking Status: Current every day smoker Past Alcohol Use History: None Reported Past Drug Use History: None Reported - Past Family History Mother Family Medical History: No Reported History Father History Unknown: Yes Medications and Allergies Home Medications Medication Instructions Recorded Confirmed Type Cholecalciferol [Vitamin D3] 2,000 unit PO DAILY 09/12/16 10/27/17 History Isosorbide Mononitrate ER [Imdur] 30 mg PO DAILY 09/12/16 10/27/17 History Aspirin [Adult Low Dose Aspirin EC] 81 mg PO DAILY 11/24/16 10/27/17 History Bumetanide [BUMEX] 0.5 mg PO BID 11/24/16 10/27/17 History Carvedilol [Coreg] 3.125 mg PO BID-W/MEALS #60 tab 11/27/16 10/27/17 Rx Lisinopril [Zestril] 2.5 mg PO DAILY #30 tab 11/27/16 10/27/17 Rx Spironolactone [Aldactone] 25 mg PO DAILY #30 tab 11/27/16 10/27/17 Rx Allopurinol [Zyloprim] 100 mg PO QID 10/27/17 10/27/17 History Apixaban [Eliquis] 5 mg PO BID 10/27/17 10/27/17 History Cinacalcet HCl [Sensipar] 30 mg PO BID 10/27/17 10/27/17 History Ergocalciferol [Vitamin D2] 50,000 unit PO Q7D 10/27/17 10/27/17 History Allergies Allergy/AdvReac Type Severity Reaction Status Date / Time No Known Allergies Allergy Verified 10/27/17 11:56 Physical Exam Vitals: Vital Signs Temp Pulse Resp BP Pulse Ox 10/27/17 12:55 75 20 88/52 100 10/27/17 12:00 76 18 77/45 98 10/27/17 10:47 81 20 113/58 99 10/27/17 09:03 97.5 F L 73 18 115/58 91 L Intake and Output 10/26/17 10/27/17 10/27/17 22:59 06:59 14:59 Other: Weight 105.233 kg PHYSICAL EXAMINATION: Patient is lying in the bed comfortably, no acute distress, awake alert and oriented.. HEENT: Normocephalic. Neck is supple. Pupils reactive. Nostrils clear. Oral cavity is moist. Ears reveal no drainage. Neck reveals no JVD, carotid bruits, or thyromegaly. CHEST EXAMINATION: Trachea is central. Symmetrical expansion. No wheezing. Bibasilar diminished air entry. Lung robledo clear to auscultation and percussion. CARDIAC: Normal S1, S2 with no gallops. No murmurs ABDOMEN: Soft. Bowel sounds normal. No organomegaly. No abdominal bruits. Extremities: reveal no edema. No clubbing or cyanosis Neurologically awake, alert, oriented x3 with well-coordinated movements. No focal deficits noted Skin: No rash or skin lesions. Psychiatric: Cooperative. Nonsuicidal Musculoskeletal: No joint swelling or deformity. Normal range of motion. Results CBC & Chem 7: 10/27/17 09:18 10/27/17 09:18 Labs: Abnormal Lab Results - Last 24 Hours (Table) 10/27/17 10/27/17 10/27/17 Range/Units 09:18 09:18 09:18 RDW 15.6 H (11.5-15.5) % BUN 49 H (7-17) mg/dL Creatinine 1.17 H (0.52-1.04) mg/dL Glucose 136 H (74-99) mg/dL Calcium 10.9 H (8.4-10.2) mg/dL Alkaline Phosphatase 177 H (38-126) U/L Total Creatine Kinase 29 L (30-135) U/L Urine Blood (Negative) Urine Bacteria (None) /hpf Hyaline Casts (0-2) /lpf Urine Mucus (None) /hpf Urine Yeast (Budding) (None) /hpf 10/27/17 Range/Units 11:00 RDW (11.5-15.5) % BUN (7-17) mg/dL Creatinine (0.52-1.04) mg/dL Glucose (74-99) mg/dL Calcium (8.4-10.2) mg/dL Alkaline Phosphatase (38-126) U/L Total Creatine Kinase (30-135) U/L Urine Blood Trace H (Negative) Urine Bacteria Rare H (None) /hpf Hyaline Casts 11 H (0-2) /lpf Urine Mucus Rare H (None) /hpf Urine Yeast (Budding) Occasional H (None) /hpf Assessment and Plan Assessment: Syncope likely due to orthostatic hypotension. Dehydration and volume depletion. With elevated BUN Hypertension. Currently hypotensive. We'll hold blood pressure medications Chronic atrial fibrillation on anticoagulation Chronic CHF with ejection fraction unknown. Coronary artery disease with history of stent placement History of uterine cancer Currently everyday smoker Morbid obesity BMI 45.3 Plan: Patient will be continued on telemetry monitoring. Serial EKG and troponins. We will hold blood pressure medications due to hypotension. Currently patient denied any chest pain or shortness of breath. No dizziness or lightheadedness. will check orthostatic vitals. 2-D echocardiogram and cardiology evaluation. Smoking cessation has been counseled extensively. Further recommendations based on the clinical course. Time with Patient: Greater than 30
[2017-10-28] MEDS: ALLOPURINOL 100 MG TAB PO SCH ×5 (00:39→23:19)
[2017-10-28 07:34] LABS: Anisocytosis Slight; Basophils # (A) 0.1 k/uL (0-0.2); Basophils % (A) 1 %; Eosinophils # (A) 0.2 k/uL (0-0.7); Eosinophils % (A) 3 %; HCT 40.3 % (34.0-46.0); HGB 13.1 gm/dL (11.4-16.0); Lymphocytes # (A) 1.4 k/uL (1.0-4.8); Lymphocytes % (A) 18 %; MCH 31.1 pg (25.0-35.0); MCHC 32.5 g/dL (31.0-37.0); MCV 95.6 fL (80.0-100.0); Monocytes # (A) 0.4 k/uL (0-1.0); Monocytes % (A) 6 %; Neutrophils # (A) 5.7 k/uL (1.3-7.7); Neutrophils % (A) 71 %; Platelet Count 193 k/uL (150-450); RBC 4.21 m/uL (3.80-5.40); RDW 16.3 % (11.5-15.5)
[2017-10-28 07:47] LABS: Calcium 10.7 mg/dL (8.4-10.2)
[2017-10-28] MEDS: CINACALCET 30 MG TAB PO SCH ×2 (07:53→23:18)
[2017-10-28] MEDS: CHOLECALCIFEROL 1,000 UNIT TAB PO SCH (07:53)
[2017-10-28] MEDS: APIXABAN 5 MG TAB PO SCH ×2 (07:53→20:19)
[2017-10-28] MEDS: ASPIRIN 81 MG PO SCH (07:54)
--- NOTE | 2017-10-28 10:19 | CONS ---
CONSULTATION DATE OF SERVICE: 10/28/2017. HISTORY: Ms. Carcamo is a 66-year-old female who came with an episode of dizziness and syncope. She went out to smoke a cigarette with her friend and she became very dizzy. She got up and walked to the house and then apparently collapsed. She felt lightheaded and sweaty before that. She denied any chest discomfort. No undue shortness of breath. MEDICATIONS: Medications at home include vitamin D, isosorbide, warfarin, aspirin, Bumex, . Previous medications include carvedilol, lisinopril, and spironolactone. ALLERGIES: No known drug allergies. REVIEW OF SYSTEMS: No fever, chills, or rigors. No cough or expectoration. No nausea, vomiting, or diarrhea. No hematuria or dysuria. No strokes or seizures. No skin lesions. No musculoskeletal complaints. PHYSICAL EXAMINATION: On examination, her blood pressure was 130/70 mmHg, lowest blood pressure recorded was 102/50 mmHg. Yesterday she was seen by the admitting physician. Her blood pressure medications were held. She is afebrile. Pulse rate is in the 70s. No respiratory distress. She is sitting comfortably in a chair. Head and neck examination is normal. Heart sounds are normal. Lungs are clear to auscultation. Extremities are warm. No edema. She is obese. Her 12-lead ECG shows atrial fibrillation with a controlled ventricular response with a 0.[address] depression with asymmetric T-wave inversions in the lateral precordial leads. LABS: Labs are reviewed. She had 3 normal cardiac enzymes. Alkaline fast is abnormal. Glucose elevated. Potassium is 5.0. Hemoglobin is normal. IMPRESSION: 1. A 66-year-old female presenting with syncopal spell. Apparently, her blood pressure was low yesterday. She was given a fluid bolus in the emergency room. 2. Persistent atrial fibrillation. 3. Coronary artery disease status post coronary stenting in the past. 4. Current daily smoker. 5. Morbid obesity. SUGGEST: Telemetry monitoring to look for any bradyarrhythmias. Stop Imdur completely. Further cardiac workup based upon her prior recent workup in the office. MMODL / IJN: [id number] /
[2017-10-28] MEDS: SODIUM CHLORIDE 0.9% 1,000 ML IV SCH (14:08)
[2017-10-28] MEDS: CARVEDILOL 3.125 MG TAB PO SCH (17:13)
[2017-10-28] MEDS: LISINOPRIL 2.5 MG TAB PO SCH (17:13)
--- NOTE | 2017-10-29 08:29 | PN ---
PROGRESS NOTE Mrs Carcamo is a 66-year-old lady with chronic atrial fib with a rate control and anticoagulation. She came in with near syncope. After her arrival to the hospital, she has not had any bradyarrhythmia. No evidence of syncope. We will resume Coreg at 3.125 mg b.i.d. and 2.5 mg of lisinopril. Blood pressure and heart rate is excellent. We will increase activity and she can be discharged with an event monitor for [address] weeks [address] to [address] Dr. Hickey in 5 weeks. Vital signs are stable. There is no JVD, S1-S2 heard normally, short systolic murmur noted. Lungs are clear. Abdomen and lower extremity exam otherwise is unchanged. MMODL / IJN: [id number] /
[2017-10-29] MEDS: CHOLECALCIFEROL 1,000 UNIT TAB PO SCH (08:36)
[2017-10-29] MEDS: ALLOPURINOL 100 MG TAB PO SCH ×2 (08:36→12:39)
[2017-10-29] MEDS: CINACALCET 30 MG TAB PO SCH (08:36)
[2017-10-29] MEDS: CARVEDILOL 3.125 MG TAB PO SCH (08:36)
[2017-10-29] MEDS: LISINOPRIL 2.5 MG TAB PO SCH (08:36)
[2017-10-29] MEDS: APIXABAN 5 MG TAB PO SCH (08:36)
[2017-10-29] MEDS: ASPIRIN 81 MG PO SCH (08:38)
[2017-10-29 11:55] VITALS: BP 125/64; PULSE 80; RESP 18; TEMP 97.7
--- NOTE | 2017-10-29 12:34 | P.PN ---
Subjective Progress Note Date: 10/28/17 Principal diagnosis: Syncope Patient is a 66-year-old female has a known history of hypertension, coronary artery disease stent placement and atrial fibrillation on anticoagulation came to ER after a syncopal episode at home. Patient went out to smoke and came back to the house and sat on the couch and suddenly she passed out. Patient's friend noticed it and called EMS. Patient says that she passed about second a few seconds. Patient was not feeling well prior to the episode. She felt lightheaded and sweaty. Currently patient denied any dizziness or lightheadedness. No chest pain. No exertional short of breath. No recent illnesses. No nausea vomiting or abdominal pain or diarrhea. No confusion or shaking movements are noted. No bladder or bowel incontinence. Patient did take her blood pressure medication this morning. Blood pressure was low when she came to the hospital. Patient was given fluid bolus in the ER. Chest x-ray showed cardiomegaly and diffuse interstitial prominence. Correlate to exclude mild pulmonary vascular congestion. No pleural fluid or yolanda consolidation. EKG showed atrial fibrillation with PACs CT head showed no acute intracranial process BUN 49 and creatinine 1.17 BNP 1030 10/28/17 Patient denied complaints of chest pain today. Otherwise patient is being site monitor for any tachybradycardia arrhythmias. No further episodes of syncope. Cardiology is following. Serial EKGs and troponins have been negative. No chest pain or shortness of breath. Imdur has been discontinued as per cardiology recommendations. Patient will be continued on Coreg and lisinopril otherwise. Blood pressure is being monitored closely. All other review of systems negative except the above Current medications reviewed Objective - Vital Signs Vital signs: Vital Signs Temp 97.7 F 10/29/17 11:54 Pulse 80 10/29/17 11:54 Resp 18 10/29/17 11:54 BP 125/64 10/29/17 11:54 Pulse Ox 96 10/29/17 11:54 Intake & Output 10/28/17 10/29/17 10/29/17 18:59 06:59 18:59 Weight 105.233 kg Other: # Voids 2 1 - Exam PHYSICAL EXAMINATION: Patient is lying in the bed comfortably, no acute distress, awake alert and oriented.. HEENT: Normocephalic. Neck is supple. Pupils reactive. Nostrils clear. Oral cavity is moist. Ears reveal no drainage. Neck reveals no JVD, carotid bruits, or thyromegaly. CHEST EXAMINATION: Trachea is central. Symmetrical expansion. Lung robledo clear to auscultation and percussion. CARDIAC: Normal S1, S2 with no gallops. No murmurs ABDOMEN: Soft. Bowel sounds normal. No organomegaly. No abdominal bruits. Extremities: reveal no edema. No clubbing or cyanosis Neurologically awake, alert, oriented x3 with well-coordinated movements. No focal deficits noted Skin: No rash or skin lesions. Psychiatric: Coperative. Nonsuicidal Musculoskeletal: No joint swelling or deformity. Normal range of motion. - Labs CBC & Chem 7: 10/28/17 07:13 10/28/17 07:13 Assessment and Plan Assessment: Syncope likely due to orthostatic hypotension. Rule out arrhythmias. Dehydration and volume depletion. With elevated BUN Acute kidney injury. Improved Hypertension. Was hypotensive on admission. Started back on blood pressure medications. Coreg and lisinopril. Imdur has been discontinued Chronic atrial fibrillation on anticoagulation Chronic CHF with ejection fraction unknown. Coronary artery disease with history of stent placement History of uterine cancer Currently everyday smoker Morbid obesity BMI 45.3 Plan: Patient will be continued on telemetry monitoring. Serial EKG and troponins negative.. Currently patient denied any chest pain or shortness of breath. No dizziness or lightheadedness. will check orthostatic vitals. 2-D echocardiogram and cardiology evaluation. Smoking cessation has been counseled extensively. Further recommendations based on the clinical course. Time with Patient: Greater than 30
[2017-10-29] MEDS: SODIUM CHLORIDE 0.9% 1,000 ML IV SCH (12:38)
--- NOTE | 2017-10-30 01:59 | P.DS ---
Providers Date of admission: 10/28/17 14:55 Expected date of discharge: 10/29/17 Attending physician: Je Sims MD Consults: 10/27/17 11:40 Consult Physician Urgent Consulting Provider: Parviz Jackson Consult Reason/Comments: syncope Do you want consulting provider notified?: Yes [facility] Course: Discharge diagnosis Syncope likely due to orthostatic hypotension. Ruled out arrhythmias. Discharged on Event monitor Dehydration and volume depletion. With elevated BUN Acute kidney injury. Improved Hypertension. Was hypotensive on admission. Started back on blood pressure medications. Coreg and lisinopril. Imdur has been discontinued Chronic atrial fibrillation on anticoagulation Chronic CHF with ejection fraction unknown. Coronary artery disease with history of stent placement History of uterine cancer Currently everyday smoker Morbid obesity BMI 45.3 Hospital course Patient is a 66-year-old female has a known history of hypertension, coronary artery disease stent placement and atrial fibrillation on anticoagulation came to ER after a syncopal episode at home. Patient went out to smoke and came back to the house and sat on the couch and suddenly she passed out. Patient's friend noticed it and called EMS. Patient says that she passed about second a few seconds. Patient was not feeling well prior to the episode. She felt lightheaded and sweaty. Currently patient denied any dizziness or lightheadedness. No chest pain. No exertional short of breath. No recent illnesses. No nausea vomiting or abdominal pain or diarrhea. No confusion or shaking movements are noted. No bladder or bowel incontinence. Patient did take her blood pressure medication this morning. Blood pressure was low when she came to the hospital. Patient was given fluid bolus in the ER. Chest x-ray showed cardiomegaly and diffuse interstitial prominence. Correlate to exclude mild pulmonary vascular congestion. No pleural fluid or yolanda consolidation. EKG showed atrial fibrillation with PACs CT head showed no acute intracranial process BUN 49 and creatinine 1.17 BNP 1030 10/28/17 Patient denied complaints of chest pain today. 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 No further episodes of syncope. Cardiology is following. Serial EKGs and troponins have been negative. No chest pain or shortness of breath. Imdur has been discontinued as per cardiology recommendations. Patient will be continued on Coreg and lisinopril otherwise. Blood pressure is being monitored closely. 10/29/2017 Patient denied any chest pain or shortness of breath. No headache or dizziness or lightheadedness. No arrhythmias noted in the telemetry monitoring. Patient will be discharged home with even monitor and recommended to follow with cardiology in 2-3 weeks. Otherwise stable to be discharged home. Plan: Patient was continued on telemetry monitoring. Serial EKG and troponins negative.. Currently patient denied any chest pain or shortness of breath. No dizziness or lightheadedness. Cardiology has seen the patient and recommended event monitor which has been arranged by cardiology. Otherwise patient is stable to be discharged home. Smoking cessation has been counseled extensively. Discharge physical examination was done and vitals reviewed. Vital Signs - 24 hr 10/29/17 10/29/17 10/29/17 04:00 08:00 11:54 Temperature 97.9 F 98.5 F 97.7 F Pulse Rate [ 65 97 80 Pulse Oximetery ] Respiratory 18 16 18 Rate Blood Pressure 122/73 124/58 125/64 [Right Arm] O2 Sat by Pulse 95 97 96 Oximetry Patient Condition at Discharge: Stable Plan - Discharge Summary Discharge Rx Participant: No New Discharge Prescriptions: Continue Cholecalciferol [Vitamin D3] 2,000 unit PO DAILY Aspirin [Adult Low Dose Aspirin EC] 81 mg PO DAILY Carvedilol [Coreg] 3.125 mg PO BID-W/MEALS #60 tab Lisinopril [Zestril] 2.5 mg PO DAILY #30 tab Cinacalcet HCl [Sensipar] 30 mg PO BID Ergocalciferol [Vitamin D2 (DRISDOL)] 50,000 unit PO Q7D Apixaban [Eliquis] 5 mg PO BID Allopurinol [Zyloprim] 100 mg PO QID Discontinued Isosorbide Mononitrate ER [Imdur] 30 mg PO DAILY Bumetanide [BUMEX] 0.5 mg PO BID Spironolactone [Aldactone] 25 mg PO DAILY #30 tab Discharge Medication List Cholecalciferol [Vitamin D3] 2,000 unit PO DAILY 09/12/16 [History] Aspirin [Adult Low Dose Aspirin EC] 81 mg PO DAILY 11/24/16 [History] Carvedilol [Coreg] 3.125 mg PO BID-W/MEALS #60 tab 11/27/16 [Rx] Lisinopril [Zestril] 2.5 mg PO DAILY #30 tab 11/27/16 [Rx] Allopurinol [Zyloprim] 100 mg PO QID 10/27/17 [History] Apixaban [Eliquis] 5 mg PO BID 10/27/17 [History] Cinacalcet HCl [Sensipar] 30 mg PO BID 10/27/17 [History] Ergocalciferol [Vitamin D2 (DRISDOL)] 50,000 unit PO Q7D 10/27/17 [History] Follow up Appointment(s)/Referral(s): Toney Hickey MD [STAFF PHYSICIAN] - 11/16/17 3:15 pm Roberto Saunders MD [Primary Care Provider] - 1-2 days Patient Instructions/Handouts: Syncope (DC) Discharge Disposition: HOME SELF-CARE
== END 2017-10-29 14:33 | disposition home or self-care (01) | DRG 312 ==
LOC: EC 09:02 → 3OBS 11:41 → OBSVTOIN 10-28 14:55
PROVIDERS: ADMIT Internal Medicine; ATTEND Internal Medicine
DX: I95.1 Orthostatic hypotension (principal); Z68.42 Body mass index [BMI] 45.0-49.9, adult; N17.9 Acute kidney failure, unspecified; I11.0 Hypertensive heart disease with heart failure; I50.9 Heart failure, unspecified; I48.2 Chronic atrial fibrillation; E66.01 Morbid (severe) obesity due to excess calories; I25.10 Atherosclerotic heart disease of native coronary artery without angina pectoris; E86.0 Dehydration; F17.210 Nicotine dependence, cigarettes, uncomplicated; H26.9 Unspecified cataract; Z71.6 Tobacco abuse counseling; Z79.01 Long term (current) use of anticoagulants; Z79.82 Long term (current) use of aspirin; Z79.899 Other long term (current) drug therapy; Z85.42 Personal history of malignant neoplasm of other parts of uterus; Z90.710 Acquired absence of both cervix and uterus; Z95.5 Presence of coronary angioplasty implant and graft; Z96.653 Presence of artificial knee joint, bilateral; Z87.81 Personal history of (healed) traumatic fracture
CPT/HCPCS: 36415; 70450; 71046; 80048; 80053; 81001; 82550; 82553; 83880; 84443; 84484; 85025; 85610; 85730; 93005; 93270; 93271; 99285

== ENCOUNTER 2018-08-03 16:58 | Inpatient (IN) | payer MEDICARE, OTHER ==
[2018-08-03] MEDS ORDERED: SODIUM CHLORIDE 0.9% 500 ML 500 ML IV STA (17:46)
[2018-08-03] MEDS ORDERED: SODIUM CHLORIDE 0.9% 500 ML 500 ML IV ONE ×2 (17:47→23:24)
--- NOTE | 2018-08-03 17:49 | XR ---
EXAMINATION TYPE: XR chest 2V DATE OF EXAM: 08/03/2018 COMPARISON: 10/27/2017 HISTORY: Dizziness TECHNIQUE: Frontal and lateral views of the chest are obtained. FINDINGS: There is no focal air space opacity, pleural effusion, or pneumothorax seen. Minimal inte rstitial pulmonary edema is seen with Lul B lines. The cardiac silhouette size is enlarged. The osseous structures are intact. Moderate multilevel degenerative changes of the spine. IMPRESSION: Mild interstitial pulmonary edema and cardiomegaly. Consider congestive heart failure.
--- NOTE | 2018-08-03 17:51 | ED ---
General Adult HPI - General Chief complaint: Dizziness Stated complaint: Dizziness Time Seen by Provider: 08/03/18 16:59 Source: patient, RN notes reviewed, old records reviewed Mode of arrival: EMS Limitations: no limitations - History of Present Illness Initial comments: 67-year-old female presenting with lightheadedness which began several hours prior to arrival. Patient does endorse some crampy abdominal pain and diarrhea. No upper abdominal pain, denies chest pain, she has had some dyspnea and mild cough. No focal numbness or weakness. Patient's symptoms are worse with standing. Denies fever or chills. She has history of syncopal episode in the past. Denies losing consciousness today. Patient states she had 2 episodes of nonbloody diarrhea prior to arrival. Patient reports history of congestive heart failure, and atrial fibrillation currently on Eliquis - Related Data Home Medications Medication Instructions Recorded Confirmed Cholecalciferol [Vitamin D3] 2,000 unit PO DAILY 09/12/16 10/27/17 Aspirin [Adult Low Dose Aspirin EC] 81 mg PO DAILY 11/24/16 10/27/17 Allopurinol [Zyloprim] 100 mg PO QID 10/27/17 10/27/17 Apixaban [Eliquis] 5 mg PO BID 10/27/17 10/27/17 Cinacalcet HCl [Sensipar] 30 mg PO BID 10/27/17 10/27/17 Ergocalciferol [Vitamin D2 50,000 unit PO Q7D 10/27/17 10/27/17 (DRISDOL)] Previous Rx's Medication Instructions Recorded Carvedilol [Coreg] 3.125 mg PO BID-W/MEALS #60 tab 11/27/16 Lisinopril [Zestril] 2.5 mg PO DAILY #30 tab 11/27/16 Allergies Allergy/AdvReac Type Severity Reaction Status Date / Time No Known Allergies Allergy Verified 08/03/18 17:18 Review of Systems ROS Statement: Those systems with pertinent positive or pertinent negative responses have been documented in the HPI. ROS Other: All systems not noted in ROS Statement are negative. Past Medical History Past Medical History: Atrial Fibrillation, Heart Failure, Hypertension Additional Past Medical History / Comment(s): RT MUN[place] HAS OPEN WOUND/CELLULITIS. GOES TO [facility] EVERY SUNDAY.UTERINE CANCER. LT CATARACT History of Any Multi-Drug Resistant Organisms: None Reported Past Surgical History: Heart Catheterization With Stent, Hysterectomy, Orthopedic Surgery Additional Past Surgical History / Comment(s): UZMA KNEE REPLACMENTS, RT ANKLE- METAL PLATE, RT ARM SX REPAIR D/T LACERATION. RT THUMB TENDON REPAIR," LT FOOT GREAT TOE BONE REMOVED". Stent x 2 (2003) Past Anesthesia/Blood Transfusion Reactions: Blood Transfusion Reaction Additional Past Anesthesia/Blood Transfusion Reaction / Comment(s): PAST BLOOD [id number] Date of Last Stent Placement:: 2003 Past Psychological History: No Psychological Hx Reported Smoking Status: Current every day smoker Past Alcohol Use History: None Reported Past Drug Use History: None Reported - Past Family History Mother Family Medical History: No Reported History Father History Unknown: Yes General Exam Limitations: no limitations General appearance: alert, in no apparent distress Head exam: Present: atraumatic, normocephalic Eye exam: Present: normal appearance, PERRL, EOMI ENT exam: Present: mucous membranes dry Neck exam: Present: normal inspection. Absent: tenderness, meningismus Respiratory exam: Present: rales, decreased breath sounds. Absent: respiratory distress, wheezes Cardiovascular Exam: Present: regular rate, irregular rhythm GI/Abdominal exam: Present: soft. Absent: distended, tenderness, guarding Extremities exam: Present: normal capillary refill, pedal edema (Chronic venous stasis). Absent: calf tenderness Neurological exam: Present: alert, oriented X3, CN II-XII intact, other (No ataxia). Absent: motor sensory deficit Skin exam: Present: warm, dry, intact. Absent: cyanosis, diaphoretic Course Vital Signs 08/03/18 08/03/18 08/03/18 17:01 17:52 18:00 Temperature 98.2 F Pulse Rate 81 81 73 Respiratory 16 16 18 Rate Blood Pressure 92/65 98/44 98/24 O2 Sat by Pulse 97 99 100 Oximetry 08/03/18 18:36 Temperature Pulse Rate 71 Respiratory 16 Rate Blood Pressure 104/59 O2 Sat by Pulse 96 Oximetry EKG Findings - EKG Comments: EKG Findings:: EKG: Atrial fibrillation, low-voltage, rate of 87, QRS duration 76, QTC 459, no ST segment elevation. Medical Decision Making - Medical Decision Making 67-year-old female presenting with mild dyspnea, lightheadedness. EKG shows atrial fibrillation which is rate controlled, no ST segment elevation or depression. Chest x-ray reveals currently megaly with pulmonary vascular congestion consistent with CHF. Patient has mildly elevated BNP at 1300. Normal electrolytes. Given IV diuresis in the emergency department. Patient does have borderline blood pressure with low diastolic pressure. Will be For telemetry, IV diuresis, and echocardiogram. Case discussed with sarah Kirkland. - Lab Data Result diagrams: 08/03/18 17:29 08/03/18 17:29 Lab Results 08/03/18 08/03/18 08/03/18 Range/Units 17:29 17:29 17:29 WBC 10.2 (3.8-10.6) k/uL RBC 3.33 L (3.80-5.40) m/uL Hgb 10.1 L (11.4-16.0) gm/dL Hct 30.5 L (34.0-46.0) % MCV 91.4 (80.0-100.0) fL MCH 30.2 (25.0-35.0) pg MCHC 33.1 (31.0-37.0) g/dL RDW 14.5 (11.5-15.5) % Plt Count 181 (150-450) k/uL Neutrophils % 81 % Lymphocytes % 12 % Monocytes % 4 % Eosinophils % 1 % Basophils % 1 % Neutrophils # 8.3 H (1.3-7.7) k/uL Lymphocytes # 1.2 (1.0-4.8) k/uL Monocytes # 0.4 (0-1.0) k/uL Eosinophils # 0.1 (0-0.7) k/uL Basophils # 0.1 (0-0.2) k/uL PT 10.7 (9.0-12.0) sec INR 1.0 (<1.2) APTT 24.0 (22.0-30.0) sec Sodium 137 (137-145) mmol/L Potassium 4.3 (3.5-5.1) mmol/L Chloride 102 (98-107) mmol/L Carbon Dioxide 27 (22-30) mmol/L Anion Gap 8 mmol/L BUN 45 H (7-17) mg/dL Creatinine 1.13 H (0.52-1.04) mg/dL Est GFR (CKD-EPI)AfAm 57 (>60 ml/min/1.73 sqM) Est GFR (CKD-EPI)NonAf 50 (>60 ml/min/1.73 sqM) Glucose 132 H (74-99) mg/dL Calcium 9.8 (8.4-10.2) mg/dL Magnesium 2.2 (1.6-2.3) mg/dL Total Bilirubin 0.6 (0.2-1.3) mg/dL AST 21 (14-36) U/L ALT 24 (9-52) U/L Alkaline Phosphatase 98 (38-126) U/L Troponin I (0.000-0.034) ng/mL NT-Pro-B Natriuret Pep pg/mL Total Protein 6.8 (6.3-8.2) g/dL Albumin 3.7 (3.5-5.0) g/dL 08/03/18 08/03/18 Range/Units 17:29 17:29 WBC (3.8-10.6) k/uL RBC (3.80-5.40) m/uL Hgb (11.4-16.0) gm/dL Hct (34.0-46.0) % MCV (80.0-100.0) fL MCH (25.0-35.0) pg MCHC (31.0-37.0) g/dL RDW (11.5-15.5) % Plt Count (150-450) k/uL Neutrophils % % Lymphocytes % % Monocytes % % Eosinophils % % Basophils % % Neutrophils # (1.3-7.7) k/uL Lymphocytes # (1.0-4.8) k/uL Monocytes # (0-1.0) k/uL Eosinophils # (0-0.7) k/uL Basophils # (0-0.2) k/uL PT (9.0-12.0) sec INR (<1.2) APTT (22.0-30.0) sec Sodium (137-145) mmol/L Potassium (3.5-5.1) mmol/L Chloride (98-107) mmol/L Carbon Dioxide (22-30) mmol/L Anion Gap mmol/L BUN (7-17) mg/dL Creatinine (0.52-1.04) mg/dL Est GFR (CKD-EPI)AfAm (>60 ml/min/1.73 sqM) Est GFR (CKD-EPI)NonAf (>60 ml/min/1.73 sqM) Glucose (74-99) mg/dL Calcium (8.4-10.2) mg/dL Magnesium (1.6-2.3) mg/dL Total Bilirubin (0.2-1.3) mg/dL AST (14-36) U/L ALT (9-52) U/L Alkaline Phosphatase (38-126) U/L Troponin I 0.033 (0.000-0.034) ng/mL NT-Pro-B Natriuret Pep 1300 pg/mL Total Protein (6.3-8.2) g/dL Albumin (3.5-5.0) g/dL Disposition Clinical Impression: Afib, Diastolic CHF, Near syncope Disposition: ADMITTED IP TO THIS HOSP Condition: Stable Is patient prescribed a controlled substance at d/c from ED?: No Referrals: Roberto Saunders MD [Primary Care Provider] - 1-2 days Decision to Admit Reason: Admit from EC Decision Date: 08/03/18 Decision Time: 19:18
[2018-08-03 17:55] LABS: Basophils # (A) 0.1 k/uL (0-0.2); Basophils % (A) 1 %; Eosinophils # (A) 0.1 k/uL (0-0.7); Eosinophils % (A) 1 %; HCT 30.5 % (34.0-46.0); HGB 10.1 gm/dL (11.4-16.0); Lymphocytes # (A) 1.2 k/uL (1.0-4.8); Lymphocytes % (A) 12 %; MCH 30.2 pg (25.0-35.0); MCHC 33.1 g/dL (31.0-37.0); MCV 91.4 fL (80.0-100.0); Mean Platelet Volume 10.5; Monocytes # (A) 0.4 k/uL (0-1.0); Monocytes % (A) 4 %; Neutrophils # (A) 8.3 k/uL (1.3-7.7); Neutrophils % (A) 81 %; Platelet Count 181 k/uL (150-450); RBC 3.33 m/uL (3.80-5.40); RDW 14.5 % (11.5-15.5); WBC 10.2 k/uL (3.8-10.6)
[2018-08-03 18:01] LABS: Prothrombin Time 10.7 sec (9.0-12.0)
[2018-08-03 18:07] LABS: Albumin 3.7 g/dL (3.5-5.0); Calcium 9.8 mg/dL (8.4-10.2); Magnesium 2.2 mg/dL (1.6-2.3); Potassium 4.3 mmol/L (3.5-5.1); Total Bilirubin 0.6 mg/dL (0.2-1.3); Total Protein 6.8 g/dL (6.3-8.2)
[2018-08-03] MEDS ORDERED: FUROSEMIDE 10 MG/ML 4 ML VIAL IV STA (18:27)
[2018-08-03] MEDS ORDERED: NALOXONE 0.4 MG/ML 1 ML VIAL IV PRN (19:20)
[2018-08-03 20:25] LABS: Appearance,Urine Clear (Clear); Bilirubin,Urine Negative (Negative); Blood,Urine Negative (Negative); Color,Urine Light Yellow; Glucose,Urine (UA) Negative (Negative); Ketones,Urine Negative (Negative); Leukocyte Esterase,Urine Negative (Negative); Nitrite,Urine Negative (Negative); PH, Urine 6.5 (5.0-8.0); Protein,Urine Negative (Negative); Urobilinogen,Urine <2.0 mg/dL (<2.0)
[2018-08-03] MEDS ORDERED: FUROSEMIDE 10 MG/ML 4 ML VIAL IV SCH (21:00)
[2018-08-03] MEDS ORDERED: SODIUM CHLORIDE 0.9% 1,000 ML IV ONE (21:52)
--- NOTE | 2018-08-03 23:05 | P.HPIM ---
History of Present Illness H&P Date: 08/03/18 Chief Complaint: dizziness 67 year old female with chronic afib on eliquis Patient presented today with dizziness of one day duration started around noon and after couple hours patient noticed that she's not improving decided to come the hospital. Patient lives alone and uses a walker to ambulate she has a history of mechanical fall a few weeks ago without loss of consciousness or injury to the head she fell on her nose and she had some bleeding from the nose of appetite. Patient takes Eliquis for A. fib and she denies any GI bleeding at this time. Patient dizziness is of postural in nature, denies any b associated headache changes in vision or hearing or any new onset focal neurologic deficits. Denies any palpitation chest pain or trouble breathing denies any abdominal pain nausea or vomiting. Patient reports 2 bouts of diarrhea today nonbloody no melena. Patient claims that she takes 4 different types of diuretics at home for her chronic venous insufficiency and leg swelling. She denies any recent changes in her medications. She was in no exact names of her medication list. She also complains of difficulty ambulating and taking care of herself at home and asking for evaluation for rehab to regain some strength. In the ED patient was given some diuretics due to suspected heart failure. Her most recent echo from last year shows normal left ventricular ejection fraction. Patient doesn't have history of congestive heart failure. Diuretics were discontinued patient was hypotensive on the floor patient was given some IV fluids and will be monitored closely Review of Systems Pertinent positives as noted in HPI. All other systems were reviewed and are negative Past Medical History Past Medical History: Atrial Fibrillation, Heart Failure, Hypertension Additional Past Medical History / Comment(s): UTERINE CANCER. LT CATARACT History of Any Multi-Drug Resistant Organisms: None Reported Past Surgical History: Heart Catheterization With Stent, Hysterectomy, Orthopedic Surgery Additional Past Surgical History / Comment(s): UZMA KNEE REPLACMENTS, RT ANKLE- METAL PLATE, RT ARM SX REPAIR D/T LACERATION. RT THUMB TENDON REPAIR," LT FOOT GREAT TOE BONE REMOVED". Stent x 2 (2003) Past Anesthesia/Blood Transfusion Reactions: Blood Transfusion Reaction Additional Past Anesthesia/Blood Transfusion Reaction / Comment(s): PAST BLOOD [id number] Date of Last Stent Placement:: 2003 Past Psychological History: No Psychological Hx Reported Smoking Status: Current every day smoker Past Alcohol Use History: None Reported Past Drug Use History: None Reported - Past Family History Mother Family Medical History: No Reported History Father History Unknown: Yes Medications and Allergies Home Medications Medication Instructions Recorded Confirmed Type Cholecalciferol [Vitamin D3] 2,000 unit PO DAILY 09/12/16 10/27/17 History Aspirin [Adult Low Dose Aspirin EC] 81 mg PO DAILY 11/24/16 10/27/17 History Carvedilol [Coreg] 3.125 mg PO BID-W/MEALS #60 tab 11/27/16 10/27/17 Rx Lisinopril [Zestril] 2.5 mg PO DAILY #30 tab 11/27/16 10/27/17 Rx Allopurinol [Zyloprim] 100 mg PO QID 10/27/17 10/27/17 History Apixaban [Eliquis] 5 mg PO BID 10/27/17 10/27/17 History Cinacalcet HCl [Sensipar] 30 mg PO BID 10/27/17 10/27/17 History Ergocalciferol [Vitamin D2 50,000 unit PO Q7D 10/27/17 10/27/17 History (DRISDOL)] Allergies Allergy/AdvReac Type Severity Reaction Status Date / Time No Known Allergies Allergy Verified 08/03/18 17:18 Physical Exam Vitals: Vital Signs Temp Pulse Resp BP Pulse Ox 08/03/18 20:06 98.1 F 77 18 121/90 100 08/03/18 18:36 71 16 104/59 96 08/03/18 18:00 73 18 98/24 100 08/03/18 17:52 81 16 98/44 99 08/03/18 17:01 98.2 F 81 16 92/65 97 Intake and Output 08/03/18 08/03/18 08/03/18 06:59 14:59 22:59 Other: Weight 127.006 kg Constitutional: No acute distress, conversant, pleasant, patient laying comfortably in bed Eyes: Anicteric sclerae, moist conjunctiva, no lid-lag Pupils equal round reactive to light ENMT: NC/AT Oropharynx clear, no erythema, exudates Neck: Supple, FROM, no masses, or JVD No carotid bruits No thyromegaly Lungs: Clear to auscultation Clear to percussion Normal respiratory effort, no accessory muscle use Cardiovascular: Heart irregular normal S1 and S2, No murmurs, gallops, or rubs No peripheral edema Abdominal: Soft, obese limiting exam Nontender, no guarding, rebound or rigidity Abdomen moving with respiration Normoactive bowel sounds No hepatomegaly, No splenomegaly No palpable mass No abdominal wall hernia noted Skin: Normal temperature, tone, texture, turgor No induration No subcutaneous nodules Chronic skin changes over bilateral lower extremities No ulcers Extremities: No digital cyanosis No clubbing Pedal pulses weak but symmetrical, capillary refill is immediate over the toes Radial pulses intact and symmetrical No calf tenderness Psychiatric: Alert and oriented to person, place and time Appropriate affect fair judgment Neuro Muscles Strength 4/5 in all 4 extremities Sensation to light touch grossly present throughout Cranial nerves II-XII grossly intact No focal sensory deficits Lymphatics: no palpable cervical or supraclavicular , or inguinal lymph nodes Results CBC & Chem 7: 08/03/18 17:29 08/03/18 17:29 Labs: Abnormal Lab Results - Last 24 Hours (Table) 08/03/18 08/03/18 Range/Units 17:29 17:29 RBC 3.33 L (3.80-5.40) m/uL Hgb 10.1 L (11.4-16.0) gm/dL Hct 30.5 L (34.0-46.0) % Neutrophils # 8.3 H (1.3-7.7) k/uL BUN 45 H (7-17) mg/dL Creatinine 1.13 H (0.52-1.04) mg/dL Glucose 132 H (74-99) mg/dL Assessment and Plan Assessment: 67 year old female with history of chronic afib, admitted as inpatient with anticipated length of stay of >48 hours due to dizziness and hypotension , difficulty ambulating and acute anemia Plan: Acute kidney injury most likely prerenal secondary to dehydration Dizziness and hypotension most likely secondary to dehydration from diuretics acute anemia (unknown onset patient baseline hemoglobin for last year was within normal limits) patient claims that she takes 4 different diuretics at home for her chronic leg swelling , which seems to be due to chronic venous insufficiency ECHO from last year showed normal LVEF. Hgb is low this admission at 10, her baseline seems to be normal , patient is on Eliquis for afib stroke PPx, patient is not aware of any GI bleeding DC diuretics give IVF bolus , then maintenance closely monitor patient breathing and vital sings . Check occult blood test rule out GI bleeding History of hypertension currently hypotensive Hold Coreg and lisinopril due to hypotension Chronic peripheral venous insufficiency with chronic skin changes over bilateral legs Compression stockings in the morning Consult to vascular surgery for evaluation Chronic A. fib on Eliquis currently rate controlled Continue Eliquis Follow-up occult blood test to rule out GI bleeding Debility Patient lives alone with decreased functional capacity PT/OT evaluation Patient ambulates using a walker can only go short distances Verify patient's home medications patient doesn't have a list at this point and she does not know her medications at home Preformed a thorough record review from recent hospitalization for syncope, reviewed most recent echocardiogram Surrogate decision-maker: *Patient's son CODE STATUS: Full code DVT prophylaxis: On Eliquis for A. fib Discussed with: Patient, ER, RN Anticipated discharge: 48-[address]: Pending clinical course and PT/OT evaluation A total of 60 minutes was spent on the care of this complex patient more than 50% of the time was spent in counseling and care coordination.
[2018-08-03] MEDS ORDERED: MELATONIN 3 MG TABLET PO PRN (23:17)
[2018-08-03] MEDS: SODIUM CHLORIDE 0.9% 1,000 ML IV SCH (23:20)
[2018-08-04 08:16] LABS: Basophils % (A) 0 %; Eosinophils # (A) 0.1 k/uL (0-0.7); Eosinophils % (A) 2 %; HCT 26.8 % (34.0-46.0); Lymphocytes # (A) 1.3 k/uL (1.0-4.8); Lymphocytes % (A) 17 %; MCH 29.9 pg (25.0-35.0); MCHC 31.3 g/dL (31.0-37.0); MCV 95.3 fL (80.0-100.0); Monocytes # (A) 0.3 k/uL (0-1.0); Monocytes % (A) 4 %; Neutrophils # (A) 5.8 k/uL (1.3-7.7); Neutrophils % (A) 75 %; Platelet Count 151 k/uL (150-450); RBC 2.81 m/uL (3.80-5.40); RDW 14.6 % (11.5-15.5); WBC 7.7 k/uL (3.8-10.6)
[2018-08-04 08:17] LABS: HGB 8.4 gm/dL (11.4-16.0)
[2018-08-04 08:31] LABS: Calcium 9.1 mg/dL (8.4-10.2); Potassium 3.9 mmol/L (3.5-5.1)
[2018-08-04] MEDS ORDERED: APIXABAN 5 MG TAB PO SCH (09:00)
[2018-08-04] MEDS: SODIUM CHLORIDE 0.9% 1,000 ML IV SCH (09:07)
[2018-08-04] MEDS: ASPIRIN 81 MG PO SCH (09:07)
--- NOTE | 2018-08-04 11:21 | P.PN ---
Subjective Progress Note Date: 08/04/18 Principal diagnosis: dizziness Patient is a 67-year-old female with past medical history of A. fib, hypertension, and osteoarthritis who presented to the ER via EMS secondary to dizziness. In the ER she underwent an extensive evaluation. There was concern for her dizziness emergency department she was found to have some congestion on chest x-ray and was given diuretics. On arrival to the floor she was hypotensive necessitating fluid bolus. Review of her echocardiogram from last year showed normal ejection fraction without any signs of congestive heart failure. Her diuretics were subsequently discontinued. She reports that she takes Bumex 4 tablets daily and that this was increased recently by her nurse practitioner secondary to lower extremity edema. Patient seen and examined at bedside. She reports that her dizziness is slightly improved but still there. She denies any nausea, vomiting, or chest pain. She does get significantly winded when walking to and from the restroom. She feels that she is overall doing worse at home due to exertional dyspnea. Objective - Vital Signs Vital signs: Vital Signs Temp 97.8 F 08/04/18 07:27 Pulse 41 L 08/04/18 10:25 Resp 14 08/04/18 10:25 BP 80/58 08/04/18 10:25 Pulse Ox 96 08/04/18 10:25 Intake & Output 08/03/18 08/04/18 08/04/18 18:59 06:59 18:59 Intake Total 4099 Balance 4099 Weight 127.006 kg Intake: Intake, IV Titration 3649 Amount Sodium Chloride 0.9% 1, 1650 000 ml @ 150 mls/hr IV . Q6H40M [facility] Rx#:[id number] Sodium Chloride 0.9% 1, 999 000 ml @ 999 mls/hr IV . Q1H1M [facility] Rx#:[id number] Sodium Chloride 0.9% 500 1000 ml 500 ml @ 999 mls/hr IV .Q31M [facility] Rx#:[id number] Oral 450 Other: Voiding Method Toilet # Voids 1 - Exam General: non toxic, no distress, appears older than stated age, obese Derm: warm, dry Head: atraumatic, normocephalic, symmetric Eyes: EOMI, no lid lag, anicteric sclera Mouth: no lip lesion, mucus membranes moist Cardiovascular: S1S2 reg, no murmur, positive posterior tibial pulse bilateral, Lungs: Decreased breath sounds bilateral, no rhonchi, no rales , no accessory muscle use Abdominal: soft, nontender to palpation, no guarding, no appreciable organomegaly Ext: no gross muscle atrophy, 1+ edema- nonpitting, no contractures Neuro: CN II-XI grossly intact, no focal neuro deficits Psych: Alert, oriented, appropriate affect - Labs CBC & Chem 7: 08/04/18 07:26 08/04/18 07:26 Labs: Abnormal Lab Results - Last 24 Hours (Table) 08/03/18 08/03/18 08/04/18 Range/Units 17:29 17:29 00:02 RBC 3.33 L (3.80-5.40) m/uL Hgb 10.1 L (11.4-16.0) gm/dL Hct 30.5 L (34.0-46.0) % Neutrophils # 8.3 H (1.3-7.7) k/uL Chloride (98-107) mmol/L BUN 45 H (7-17) mg/dL Creatinine 1.13 H (0.52-1.04) mg/dL Glucose 132 H (74-99) mg/dL Troponin I 0.035 H* (0.000-0.034) ng/mL 08/04/18 08/04/18 08/04/18 Range/Units 07:26 07:26 07:26 RBC 2.81 L (3.80-5.40) m/uL Hgb 8.4 L D (11.4-16.0) gm/dL Hct 26.8 L (34.0-46.0) % Neutrophils # (1.3-7.7) k/uL Chloride 109 H (98-107) mmol/L BUN 37 H (7-17) mg/dL Creatinine (0.52-1.04) mg/dL Glucose 107 H (74-99) mg/dL Troponin I 0.410 H* (0.000-0.034) ng/mL Assessment and Plan Assessment: Dizziness likely secondary to hypotension, positive orthostatics -Decreased IV fluids as blood pressure improved -Telemetry -Cardiology consult -Plan for echo in a.m. -Still borderline hypotension and will continue to hold lisinopril and Coreg -Follow blood pressures -Repeat orthostatics in a.m. -Fall precautions Elevated troponin, ? anginal equivalent with dyspena on exertion -May be secondary to stress with hypotensive episodes -Repeat troponin -Aspirin -telemetry - cardio consult Fall with debility and decreased functional capacity - PT/OT evaluations - fall precuatison Hx HTN, now hypotensive - all meds on hold, following BP Morbid obesity - outpatient structured weight loss A fb - rate controlled on eliquis Chronic venous stasis changes - vasular recs DVT prophylaxis: jarred Discussed with: Patient, nursing Anticipated discharge: 1-[address]: Home with home health vs SNF A total of 30 minutes was spent on the care of this complex patient more than 50% of the time was spent in counseling and care coordination.
[2018-08-04] MEDS: SODIUM CHLORIDE 0.45% 1,000 ML IV SCH (11:25)
[2018-08-04] MEDS ORDERED: ATORVASTATIN 80 MG TAB PO STA (11:51)
--- NOTE | 2018-08-04 11:51 | P.CRDCN ---
<Kianna Girard A - Last Filed: 08/04/18 10:49> History of Present Illness Consult date: 08/04/18 Reason for Consult (text): Elevated troponin History of present illness: IMPRESSION / ASSESSMENT: Dizziness and hypotension Hypertension Chronic atrial fibrillation on eliquis Anemia Coronary artery disease with previous coronary stenting in the past PLAN: Obtin 2D echocardiogram and doppler study to assess cardiac structure and function. Monitor orthostatic vital signs Continue eliquis 5 mg twice daily, aspirin 81 mg daily, Coreg 3.125 mg twice daily HPI This is a 67-year-old female presents to hospital with complaints of lightheadedness or dizziness going on for several hours yesterday along with crampy abdominal pain and 2 episodes diarrhea. No chest pain reported. Some dyspnea with a mild cough. ROS: No fever chills or rigors, no cough, phlegm or expectoration, no nausea, vomiting or diarrhea, no hematuria, dysuria, no musculoskeletal complaints, no strokes or seizures, no skin lesions. EXAMINATION: Gen: This is a 67-year-old morbidly obese female. Patient is resting in bed appears to be comfortable Vital signs: HEENT: Head is atraumatic, normocephalic. Pupils equal, round. Sclerae is anicteric. NECK: Supple. No JVD. No lymphadenopathy. No thyromegaly. LUNGS: Clear to auscultation. No wheezes or rhonchi. No intercostal retractions. HEART: Regular rate and rhythm. No murmur. ABDOMEN: Soft. Bowel sounds are present. No masses. No tenderness. EXTREMITIES: No pedal edema. No calf tenderness. NEUROLOGICAL: Patient is awake, alert and oriented x3. Cranial nerves 2 through 12 are grossly intact. REVIEW OF LABS, ECG & MEDICAL DATA EKG is atrial fibrillation rate controlled with no acute ST changes. Chest x-ray reveals mild interstitial pulmonary edema and cardiomegaly. Consider heart failure. Orthostatic vital signs are negative WBC 7.7, he was limiting 0.4, platelet count 151. BUN 37 creatinine 0.87. Troponin 0.033, 0.035 and 0.410. ProBNP 1300 Nurse practitioner note has been reviewed, I agree with documented findings and plan of care. Patient was seen and examined. Past Medical History Past Medical History: Atrial Fibrillation, Heart Failure, Hypertension Additional Past Medical History / Comment(s): UTERINE CANCER. LT CATARACT History of Any Multi-Drug Resistant Organisms: None Reported Past Surgical History: Heart Catheterization With Stent, Hysterectomy, Orthopedic Surgery Additional Past Surgical History / Comment(s): UZMA KNEE REPLACMENTS, RT ANKLE- METAL PLATE, RT ARM SX REPAIR D/T LACERATION. RT THUMB TENDON REPAIR," LT FOOT GREAT TOE BONE REMOVED". Stent x 2 (2003) Past Anesthesia/Blood Transfusion Reactions: Blood Transfusion Reaction Additional Past Anesthesia/Blood Transfusion Reaction / Comment(s): PAST BLOOD [id number] Date of Last Stent Placement:: 2003 Past Psychological History: No Psychological Hx Reported Smoking Status: Current every day smoker Past Alcohol Use History: None Reported Past Drug Use History: None Reported - Past Family History Mother Family Medical History: No Reported History Father History Unknown: Yes Medications and Allergies Home Medications Medication Instructions Recorded Confirmed Type Cholecalciferol [Vitamin D3] 2,000 unit PO DAILY 09/12/16 10/27/17 History Aspirin [Adult Low Dose Aspirin EC] 81 mg PO DAILY 11/24/16 10/27/17 History Carvedilol [Coreg] 3.125 mg PO BID-W/MEALS #60 tab 11/27/16 10/27/17 Rx Lisinopril [Zestril] 2.5 mg PO DAILY #30 tab 11/27/16 10/27/17 Rx Allopurinol [Zyloprim] 100 mg PO QID 10/27/17 10/27/17 History Apixaban [Eliquis] 5 mg PO BID 10/27/17 10/27/17 History Cinacalcet HCl [Sensipar] 30 mg PO BID 10/27/17 10/27/17 History Ergocalciferol [Vitamin D2 50,000 unit PO Q7D 10/27/17 10/27/17 History (DRISDOL)] Allergies Allergy/AdvReac Type Severity Reaction Status Date / Time No Known Allergies Allergy Verified 08/03/18 17:18 Physical Exam Vitals: Vital Signs Temp Pulse Pulse Pulse Resp BP BP 08/04/18 10:25 41 L 14 80/58 08/04/18 07:39 18 08/04/18 07:27 97.8 F 72 18 107/72 08/03/18 23:22 98.2 F 66 16 88/60 08/03/18 21:40 80/40 08/03/18 21:30 98.2 F 79 16 67/44 08/03/18 20:06 98.1 F 77 18 121/90 08/03/18 18:36 71 16 104/59 08/03/18 18:00 73 18 98/24 08/03/18 17:52 81 16 98/44 08/03/18 17:01 98.2 F 81 16 92/65 BP BP Pulse Ox 08/04/18 10:25 97/60 118/71 96 08/04/18 07:39 08/04/18 07:27 95 08/03/18 23:22 96 08/03/18 21:40 08/03/18 21:30 98 08/03/18 20:06 100 08/03/18 18:36 96 08/03/18 18:00 100 08/03/18 17:52 99 08/03/18 17:01 97 Intake and Output 08/03/18 08/04/18 08/04/18 22:59 06:59 14:59 Intake Total 850 3249 Balance 850 3249 Intake: Intake, IV Titration 650 2999 Amount Sodium Chloride 0.9% 1, 150 1500 000 ml @ 150 mls/hr IV . Q6H40M [facility] Rx#:[id number] Sodium Chloride 0.9% 1, 999 000 ml @ 999 mls/hr IV . Q1H1M [facility] Rx#:[id number] Sodium Chloride 0.9% 500 500 500 ml 500 ml @ 999 mls/hr IV .Q31M [facility] Rx#:[id number] Oral 200 250 Other: Voiding Method Toilet # Voids 1 1 Weight 127.006 kg Results 08/04/18 07:26 08/04/18 07:26 Cardiac Enzymes 08/03/18 08/03/18 08/04/18 Range/Units 17:29 17:29 00:02 AST 21 (14-36) U/L Troponin I 0.033 0.035 H* (0.000-0.034) ng/mL 08/04/18 Range/Units 07:26 AST (14-36) U/L Troponin I 0.410 H* (0.000-0.034) ng/mL Coagulation 08/03/18 Range/Units 17:29 PT 10.7 (9.0-12.0) sec APTT 24.0 (22.0-30.0) sec CBC 08/03/18 08/04/18 Range/Units 17:29 07:26 WBC 10.2 7.7 (3.8-10.6) k/uL RBC 3.33 L 2.81 L (3.80-5.40) m/uL Hgb 10.1 L 8.4 L D (11.4-16.0) gm/dL Hct 30.5 L 26.8 L (34.0-46.0) % Plt Count 181 151 (150-450) k/uL Comprehensive Metabolic Panel 08/03/18 08/04/18 Range/Units 17:29 07:26 Sodium 137 138 (137-145) mmol/L Potassium 4.3 3.9 (3.5-5.1) mmol/L Chloride 102 109 H (98-107) mmol/L Carbon Dioxide 27 23 (22-30) mmol/L BUN 45 H 37 H (7-17) mg/dL Creatinine 1.13 H 0.82 (0.52-1.04) mg/dL Glucose 132 H 107 H (74-99) mg/dL Calcium 9.8 9.1 (8.4-10.2) mg/dL AST 21 (14-36) U/L ALT 24 (9-52) U/L Alkaline Phosphatase 98 (38-126) U/L Total Protein 6.8 (6.3-8.2) g/dL Albumin 3.7 (3.5-5.0) g/dL Current Medications Generic Name Dose Route Start Last Admin Trade Name Freq PRN Reason Stop Dose Admin Apixaban 5 mg 08/04/18 09:00 08/04/18 09:07 Eliquis PO 5 mg BID [facility] Administration Aspirin 81 mg 08/04/18 09:00 08/04/18 09:07 Aspirin PO 81 mg DAILY [facility] Administration Sodium Chloride 1,000 mls @ 150 mls/hr 08/03/18 23:15 08/04/18 09:07 Saline 0.9% IV 150 mls/hr .Q6H40M [facility] Administration Melatonin 3 mg 08/03/18 23:17 Melatonin PO HS PRN Insomnia Naloxone HCl 0.2 mg 08/03/18 19:20 Narcan IV Q2M PRN Opioid Reversal Intake and Output 08/03/18 08/04/18 08/04/18 22:59 06:59 14:59 Intake Total 850 3249 Balance 850 3249 Intake: Intake, IV Titration 650 2999 Amount Sodium Chloride 0.9% 1, 150 1500 000 ml @ 150 mls/hr IV . Q6H40M [facility] Rx#:[id number] Sodium Chloride 0.9% 1, 999 000 ml @ 999 mls/hr IV . Q1H1M [facility] Rx#:[id number] Sodium Chloride 0.9% 500 500 500 ml 500 ml @ 999 mls/hr IV .Q31M [facility] Rx#:[id number] Oral 200 250 Other: Voiding Method Toilet # Voids 1 1 Weight 127.006 kg 08/04/18 07:26 08/04/18 07:26 <Toney Hickey - Last Filed: 08/04/18 11:51> Physical Exam Vitals: Vital Signs Temp Pulse Pulse Pulse Resp BP BP 08/04/18 10:25 41 L 14 80/58 08/04/18 07:39 18 08/04/18 07:27 97.8 F 72 18 107/72 08/03/18 23:22 98.2 F 66 16 88/60 08/03/18 21:40 80/40 08/03/18 21:30 98.2 F 79 16 67/44 08/03/18 20:06 98.1 F 77 18 121/90 08/03/18 18:36 71 16 104/59 08/03/18 18:00 73 18 98/24 08/03/18 17:52 81 16 98/44 08/03/18 17:01 98.2 F 81 16 92/65 BP BP Pulse Ox 08/04/18 10:25 97/60 118/71 96 08/04/18 07:39 08/04/18 07:27 95 08/03/18 23:22 96 08/03/18 21:40 08/03/18 21:30 98 08/03/18 20:06 100 08/03/18 18:36 96 08/03/18 18:00 100 08/03/18 17:52 99 08/03/18 17:01 97 Intake and Output 08/03/18 08/04/18 08/04/18 22:59 06:59 14:59 Intake Total 850 3249 Balance 850 3249 Intake: Intake, IV Titration 650 2999 Amount Sodium Chloride 0.9% 1, 150 1500 000 ml @ 150 mls/hr IV . Q6H40M [facility] Rx#:[id number] Sodium Chloride 0.9% 1, 999 000 ml @ 999 mls/hr IV . Q1H1M [facility] Rx#:[id number] Sodium Chloride 0.9% 500 500 500 ml 500 ml @ 999 mls/hr IV .Q31M [facility] Rx#:[id number] Oral 200 250 Other: Voiding Method Toilet # Voids 1 1 1 Weight 127.006 kg Results 08/04/18 07:26 08/04/18 07:26 Cardiac Enzymes 08/03/18 08/03/18 08/04/18 Range/Units 17:29 17:29 00:02 AST 21 (14-36) U/L Troponin I 0.033 0.035 H* (0.000-0.034) ng/mL 08/04/18 Range/Units 07:26 AST (14-36) U/L Troponin I 0.410 H* (0.000-0.034) ng/mL Coagulation 08/03/18 Range/Units 17:29 PT 10.7 (9.0-12.0) sec APTT 24.0 (22.0-30.0) sec CBC 08/03/18 08/04/18 Range/Units 17:29 07:26 WBC 10.2 7.7 (3.8-10.6) k/uL RBC 3.33 L 2.81 L (3.80-5.40) m/uL Hgb 10.1 L 8.4 L D (11.4-16.0) gm/dL Hct 30.5 L 26.8 L (34.0-46.0) % Plt Count 181 151 (150-450) k/uL Comprehensive Metabolic Panel 08/03/18 08/04/18 Range/Units 17:29 07:26 Sodium 137 138 (137-145) mmol/L Potassium 4.3 3.9 (3.5-5.1) mmol/L Chloride 102 109 H (98-107) mmol/L Carbon Dioxide 27 23 (22-30) mmol/L BUN 45 H 37 H (7-17) mg/dL Creatinine 1.13 H 0.82 (0.52-1.04) mg/dL Glucose 132 H 107 H (74-99) mg/dL Calcium 9.8 9.1 (8.4-10.2) mg/dL AST 21 (14-36) U/L ALT 24 (9-52) U/L Alkaline Phosphatase 98 (38-126) U/L Total Protein 6.8 (6.3-8.2) g/dL Albumin 3.7 (3.5-5.0) g/dL Current Medications Generic Name Dose Route Start Last Admin Trade Name Freq PRN Reason Stop Dose Admin Aspirin 81 mg 08/04/18 09:00 08/04/18 09:07 Aspirin PO 81 mg DAILY [facility] Administration Sodium Chloride 1,000 mls @ 50 mls/hr 08/04/18 11:15 08/04/18 11:25 Saline 0.45% IV 50 mls/hr .Q20H [facility] Administration Melatonin 3 mg 08/03/18 23:17 Melatonin PO HS PRN Insomnia Naloxone HCl 0.2 mg 08/03/18 19:20 Narcan IV Q2M PRN Opioid Reversal Intake and Output 08/03/18 08/04/18 08/04/18 22:59 06:59 14:59 Intake Total 850 3249 Balance 850 3249 Intake: Intake, IV Titration 650 2999 Amount Sodium Chloride 0.9% 1, 150 1500 000 ml @ 150 mls/hr IV . Q6H40M [facility] Rx#:[id number] Sodium Chloride 0.9% 1, 999 000 ml @ 999 mls/hr IV . Q1H1M [facility] Rx#:[id number] Sodium Chloride 0.9% 500 500 500 ml 500 ml @ 999 mls/hr IV .Q31M [facility] Rx#:[id number] Oral 200 250 Other: Voiding Method Toilet # Voids 1 1 1 Weight 127.006 kg 08/04/18 07:26 08/04/18 07:26
[2018-08-04] MEDS ORDERED: HEPARIN SODIUM,PORCINE 5,000 UNIT/ML 1 ML VIAL IV PRN (12:04)
--- NOTE | 2018-08-04 12:08 | P.CRDCN ---
History of Present Illness History of present illness: Patient admitted with symptoms consistent with vertigo. However she is abnormal ST-T changes inferolaterally in serial ECGs and has borderline troponins. Blood pressure is low. She did complain of being dizzy. Suggest Transferr to telemetry Stop apixaban and start IV heparin Continue aspirin Statins atorvastatin 40 mg by mouth daily Hold Bumex and lisinopril but continue carvedilol Past Medical History Past Medical History: Atrial Fibrillation, Heart Failure, Hypertension Additional Past Medical History / Comment(s): UTERINE CANCER. LT CATARACT History of Any Multi-Drug Resistant Organisms: None Reported Past Surgical History: Heart Catheterization With Stent, Hysterectomy, Orthopedic Surgery Additional Past Surgical History / Comment(s): UZMA KNEE REPLACMENTS, RT ANKLE- METAL PLATE, RT ARM SX REPAIR D/T LACERATION. RT THUMB TENDON REPAIR," LT FOOT GREAT TOE BONE REMOVED". Stent x 2 (2003) Past Anesthesia/Blood Transfusion Reactions: Blood Transfusion Reaction Additional Past Anesthesia/Blood Transfusion Reaction / Comment(s): PAST BLOOD [id number] Date of Last Stent Placement:: 2003 Past Psychological History: No Psychological Hx Reported Smoking Status: Current every day smoker Past Alcohol Use History: None Reported Past Drug Use History: None Reported - Past Family History Mother Family Medical History: No Reported History Father History Unknown: Yes Medications and Allergies Home Medications Medication Instructions Recorded Confirmed Type Cholecalciferol [Vitamin D3] 2,000 unit PO DAILY 09/12/16 10/27/17 History Aspirin [Adult Low Dose Aspirin EC] 81 mg PO DAILY 11/24/16 10/27/17 History Carvedilol [Coreg] 3.125 mg PO BID-W/MEALS #60 tab 11/27/16 10/27/17 Rx Lisinopril [Zestril] 2.5 mg PO DAILY #30 tab 11/27/16 10/27/17 Rx Allopurinol [Zyloprim] 100 mg PO QID 10/27/17 10/27/17 History Apixaban [Eliquis] 5 mg PO BID 10/27/17 10/27/17 History Cinacalcet HCl [Sensipar] 30 mg PO BID 10/27/17 10/27/17 History Ergocalciferol [Vitamin D2 50,000 unit PO Q7D 10/27/17 10/27/17 History (DRISDOL)] Allergies Allergy/AdvReac Type Severity Reaction Status Date / Time No Known Allergies Allergy Verified 08/03/18 17:18 Physical Exam Vitals: Vital Signs Temp Pulse Pulse Pulse Resp BP BP 08/04/18 10:25 41 L 14 80/58 08/04/18 07:39 18 08/04/18 07:27 97.8 F 72 18 107/72 08/03/18 23:22 98.2 F 66 16 88/60 08/03/18 21:40 80/40 08/03/18 21:30 98.2 F 79 16 67/44 08/03/18 20:06 98.1 F 77 18 121/90 08/03/18 18:36 71 16 104/59 08/03/18 18:00 73 18 98/24 08/03/18 17:52 81 16 98/44 08/03/18 17:01 98.2 F 81 16 92/65 BP BP Pulse Ox 08/04/18 10:25 97/60 118/71 96 08/04/18 07:39 08/04/18 07:27 95 08/03/18 23:22 96 08/03/18 21:40 08/03/18 21:30 98 08/03/18 20:06 100 08/03/18 18:36 96 08/03/18 18:00 100 08/03/18 17:52 99 08/03/18 17:01 97 Intake and Output 08/03/18 08/04/18 08/04/18 22:59 06:59 14:59 Intake Total 850 3249 Balance 850 3249 Intake: Intake, IV Titration 650 2999 Amount Sodium Chloride 0.9% 1, 150 1500 000 ml @ 150 mls/hr IV . Q6H40M [facility] Rx#:[id number] Sodium Chloride 0.9% 1, 999 000 ml @ 999 mls/hr IV . Q1H1M [facility] Rx#:[id number] Sodium Chloride 0.9% 500 500 500 ml 500 ml @ 999 mls/hr IV .Q31M [facility] Rx#:[id number] Oral 200 250 Other: Voiding Method Toilet # Voids 1 1 1 Weight 127.006 kg Results 08/04/18 07:26 08/04/18 07:26 Cardiac Enzymes 08/03/18 08/03/18 08/04/18 Range/Units 17:29 17:29 00:02 AST 21 (14-36) U/L Troponin I 0.033 0.035 H* (0.000-0.034) ng/mL 08/04/18 Range/Units 07:26 AST (14-36) U/L Troponin I 0.410 H* (0.000-0.034) ng/mL Coagulation 08/03/18 Range/Units 17:29 PT 10.7 (9.0-12.0) sec APTT 24.0 (22.0-30.0) sec CBC 08/03/18 08/04/18 Range/Units 17:29 07:26 WBC 10.2 7.7 (3.8-10.6) k/uL RBC 3.33 L 2.81 L (3.80-5.40) m/uL Hgb 10.1 L 8.4 L D (11.4-16.0) gm/dL Hct 30.5 L 26.8 L (34.0-46.0) % Plt Count 181 151 (150-450) k/uL Comprehensive Metabolic Panel 08/03/18 08/04/18 Range/Units 17:29 07:26 Sodium 137 138 (137-145) mmol/L Potassium 4.3 3.9 (3.5-5.1) mmol/L Chloride 102 109 H (98-107) mmol/L Carbon Dioxide 27 23 (22-30) mmol/L BUN 45 H 37 H (7-17) mg/dL Creatinine 1.13 H 0.82 (0.52-1.04) mg/dL Glucose 132 H 107 H (74-99) mg/dL Calcium 9.8 9.1 (8.4-10.2) mg/dL AST 21 (14-36) U/L ALT 24 (9-52) U/L Alkaline Phosphatase 98 (38-126) U/L Total Protein 6.8 (6.3-8.2) g/dL Albumin 3.7 (3.5-5.0) g/dL Current Medications Generic Name Dose Route Start Last Admin Trade Name Freq PRN Reason Stop Dose Admin Aspirin 81 mg 08/04/18 09:00 08/04/18 09:07 Aspirin PO 81 mg DAILY [facility] Administration Atorvastatin Calcium 80 mg 08/05/18 21:00 Lipitor PO HS [facility] Carvedilol 3.125 mg 08/04/18 17:30 Coreg PO BID-W/MEALS [facility] Heparin Sodium (Porcine) 0 unit 08/04/18 12:04 Heparin IV PER PROTOCOL PRN Low PTT Protocol Sodium Chloride 1,000 mls @ 50 mls/hr 08/04/18 11:15 08/04/18 11:25 Saline 0.45% IV 50 mls/hr .Q20H [facility] Administration Heparin Sodium/Sodium Chloride 250 mls @ 15.241 mls/hr 08/04/18 12:04 25,000 unit/ Sodium Chloride IV .[id number] [facility] Protocol 12 UNITS/KG/HR Melatonin 3 mg 08/03/18 23:17 Melatonin PO HS PRN Insomnia Naloxone HCl 0.2 mg 08/03/18 19:20 Narcan IV Q2M PRN Opioid Reversal Intake and Output 08/03/18 08/04/18 08/04/18 22:59 06:59 14:59 Intake Total 850 3249 Balance 850 3249 Intake: Intake, IV Titration 650 2999 Amount Sodium Chloride 0.9% 1, 150 1500 000 ml @ 150 mls/hr IV . Q6H40M [facility] Rx#:[id number] Sodium Chloride 0.9% 1, 999 000 ml @ 999 mls/hr IV . Q1H1M [facility] Rx#:[id number] Sodium Chloride 0.9% 500 500 500 ml 500 ml @ 999 mls/hr IV .Q31M [facility] Rx#:[id number] Oral 200 250 Other: Voiding Method Toilet # Voids 1 1 1 Weight 127.006 kg 08/04/18 07:26 08/04/18 07:26
[2018-08-04 13:10] LABS: Basophils # (A) 0.1 k/uL (0-0.2); Basophils % (A) 1 %; Eosinophils # (A) 0.1 k/uL (0-0.7); Eosinophils % (A) 2 %; HCT 27.4 % (34.0-46.0); HGB 8.8 gm/dL (11.4-16.0); Lymphocytes # (A) 1.5 k/uL (1.0-4.8); Lymphocytes % (A) 15 %; MCH 30.2 pg (25.0-35.0); MCHC 32.2 g/dL (31.0-37.0); MCV 93.8 fL (80.0-100.0); Mean Platelet Volume 10.5; Monocytes # (A) 0.4 k/uL (0-1.0); Monocytes % (A) 4 %; Neutrophils # (A) 7.5 k/uL (1.3-7.7); Neutrophils % (A) 78 %; Platelet Count 180 k/uL (150-450); RBC 2.92 m/uL (3.80-5.40); RDW 14.7 % (11.5-15.5); WBC 9.6 k/uL (3.8-10.6)
[2018-08-04 13:18] LABS: Prothrombin Time 10.5 sec (9.0-12.0)
[2018-08-04] MEDS: HEPARIN SOD,PORK IN 0.45% NACL 25,000 UNIT in 0.45% NACL 1 250ML.BAG IV SCH (13:18)
[2018-08-04] MEDS: CARVEDILOL 3.125 MG TAB PO SCH (17:38)
[2018-08-05] MEDS: CARVEDILOL 3.125 MG TAB PO SCH ×2 (08:56→17:37)
[2018-08-05] MEDS: ASPIRIN 81 MG PO SCH (08:56)
[2018-08-05] MEDS: SODIUM CHLORIDE 0.45% 1,000 ML IV SCH (08:57)
[2018-08-05 09:43] LABS: Basophils # (A) 0.1 k/uL (0-0.2); Basophils % (A) 1 %; Eosinophils # (A) 0.2 k/uL (0-0.7); Eosinophils % (A) 2 %; HCT 27.1 % (34.0-46.0); HGB 8.7 gm/dL (11.4-16.0); Lymphocytes # (A) 1.7 k/uL (1.0-4.8); Lymphocytes % (A) 15 %; MCH 30.2 pg (25.0-35.0); MCV 94.5 fL (80.0-100.0); Mean Platelet Volume 10.7; Monocytes # (A) 0.5 k/uL (0-1.0); Monocytes % (A) 4 %; Neutrophils # (A) 8.7 k/uL (1.3-7.7); Neutrophils % (A) 78 %; Platelet Count 186 k/uL (150-450); RBC 2.86 m/uL (3.80-5.40); RDW 14.8 % (11.5-15.5); WBC 11.2 k/uL (3.8-10.6)
--- NOTE | 2018-08-05 09:47 | P.PN ---
Subjective Patient is stable. No symptoms no vertigo no dizziness no chest discomfort no shortness of breath overnight Yesterday she was on the fourth floor and I transferred her here to telemetry because of abnormal ECGs with ST-T changes. However I have seen these changes before. She also had borderline rising troponins. Her symptoms however are consistent with vertigo He completely denied chest discomfort or shortness of breath at that time and she denied any palpitations On examination blood pressure 132/86 and 142/89 mmHg Pulse rate in the 70s she's afebrile 97.8F Breath sounds are reduced bilaterally but no rhonchi no crackles Heart sounds are soft and normal S1 normal S2 Increased BMI noted No lower extremity edema Trophic changes in skin Suggest I had a detailed discussion with the patient. I told her that we'll first evaluate her for a blood clot with a d-dimer. If this is completely normal we would evaluate her for causes of myocardial injury with ECG changes and she may consider coronary angiography. She has had coronary stenting performed in the past. I also gave her the option of medical treatment only I asked to think about it and let me know and she said she will Impression Symptoms consistent with vertigo History of coronary artery disease status post cardiac stenting Hypertension, on lisinopril Patient takes ELIQUIS at home for paroxysmal atrial fibrillation Evidence of myocardial injury Send d-dimer today If d-dimer is completely normal, Consider coronary angiography if patient agrees Objective - Vital Signs Vital signs: Vital Signs Temp 97.8 F 08/05/18 08:00 Pulse 75 08/05/18 08:00 Resp 16 08/05/18 08:00 BP 142/89 08/05/18 08:00 Pulse Ox 98 08/05/18 08:00 Intake & Output 08/04/18 08/05/18 08/05/18 18:59 06:59 18:59 Intake Total 188.778 Balance 188.778 Weight 124 kg Intake: Intake, IV Titration 128.778 Amount Heparin Sod,Pork in 0.45% 128.778 NaCl 25,000 unit In 0.45 % NaCl 1 250ml.bag @ 7.8 UNITS/KG/HR 9.906 mls/hr IV .Q24H [facility] Rx#: [id number] Oral 60 Other: Voiding Method Toilet Toilet Toilet # Voids 1 3 1 # Bowel Movements 1 - Labs CBC & Chem 7: 03/31/19 12:31 08/04/18 07:26 Labs: Abnormal Lab Results - Last 24 Hours (Table) 08/04/18 08/04/18 08/05/18 Range/Units 12:31 15:00 01:29 RBC 2.92 L (3.80-5.40) m/uL Hgb 8.8 L (11.4-16.0) gm/dL Hct 27.4 L (34.0-46.0) % APTT 30.6 H (22.0-30.0) sec Stool Occult Blood Positive H (Negative)
[2018-08-05 09:58] LABS: D-Dimer 0.57 mg/L FEU (<0.60); Partial Thromboplastin Time 57.6 sec (22.0-30.0)
[2018-08-05 10:02] LABS: Cholesterol 115 mg/dL (<200); Triglycerides 135 mg/dL (<150)
[2018-08-05 10:15] LABS: Creatine Kinase MB 6.2 ng/mL (0.0-2.4)
[2018-08-05 10:31] LABS: Troponin I 0.937 ng/mL (0.000-0.034)
[2018-08-05 10:43] VITALS: BMI 53.4
[2018-08-05 10:48] LABS: HDL Cholesterol 35 mg/dL (40-60); LDL Cholesterol,Calculated 55 mg/dL (0-99)
--- NOTE | 2018-08-05 11:22 | ECHOF ---
Referral Reason:CHF MEASUREMENTS -------- HEIGHT: 152.4 cm WEIGHT: 123.8 kg BP: IVSd: 1.5 cm (0.6 - 1.1) LVIDd: 4.7 cm (3.9 - 5.3) LVPWd: 1.6 cm (0.6 - 1.1) IVSs: 1.8 cm LVIDs: 4.3 cm LVPWs: 1.7 cm Ao Diam: 2.9 cm (2.0 - 3.7) AV Cusp: 1.6 cm (1.5 - 2.6) LA Diam: 4.3 cm (2.7 - 3.8) MV EXCURSION: 12.104 mm (> 18.000) MV EF SLOPE: 37 mm/s (70 - 150) EPSS: 1.1 cm MV E Chencho: 1.48 m/s MV DecT: 190 ms MV A Chencho: 0.49 m/s MV E/A Ratio: 2.99 RAP: 5.00 mmHg RVSP: 23.73 mmHg FINDINGS -------- Sinus rhythm. Morbid Obesity This was a techncally difficult study with suboptimal views, , Lumason utilized for enhancement of im ages. The left ventricular size is normal. There is moderate concentric left ventricular hypertrophy. O verall left ventricular systolic function is low-normal with, an EF between 50 - 55 %. The right ventricle is normal in size. The left atrial size is normal. The right atrial size is normal. 5.0mg OF Lumason UTLIZED: 2 OR MORE WALL SEGMENTS NOT VISUALIZED. There is mild aortic valve sclerosis. There is no evidence of aortic regurgitation. Mild mitral annular calcification present. Mild mitral regurgitation is present. Mild tricuspid regurgitation present. There is no evidence of pulmonary hypertension. The right v entricular systolic pressure, as measured by Doppler, is 23.73mmHg. There is no pulmonic regurgitation present. The aortic root size is normal. There is no pericardial effusion. CONCLUSIONS -------- 1. Morbid Obesity 2. This was a techncally difficult study with suboptimal views, , Lumason utilized for enhancement of images. 3. The left ventricular size is normal. 4. There is moderate concentric left ventricular hypertrophy. 5. Overall left ventricular systolic function is low-normal with, an EF between 50 - 55 %. 6. The right ventricle is normal in size. 7. The left atrial size is normal. 8. The right atrial size is normal. 9. 5.0mg OF Lumason UTLIZED: 2 OR MORE WALL SEGMENTS NOT VISUALIZED. 10. There is mild aortic valve sclerosis. 11. Mild mitral annular calcification present. 12. Mild mitral regurgitation is present. 13. Mild tricuspid regurgitation present. 14. There is no evidence of pulmonary hypertension. 15. The right ventricular systolic pressure, as measured by Doppler, is 23.73mmHg. 16. There is no pulmonic regurgitation present. 17. The aortic root size is normal. 18. There is no pericardial effusion. [employer] SUPERVISOR: Veronica Voss RDCS
--- NOTE | 2018-08-05 11:32 | P.PN ---
Subjective Progress Note Date: 08/05/18 Principal diagnosis: dizziness, vertigo Patient was seen and examined. No acute events overnight. Patient reports complete resolution of her dizziness. States that dizziness started while she was watching TV in a seated position. Characterizes vertigo. Has not had any further episodes while hospitalized. She denies any chest pain, shortness of breath or palpitations. Objective - Vital Signs Vital signs: Vital Signs Temp 97.8 F 08/05/18 08:00 Pulse 99 08/05/18 11:07 Resp 16 08/05/18 11:07 BP 114/66 08/05/18 11:07 Pulse Ox 98 08/05/18 08:00 Intake & Output 08/04/18 08/05/18 08/05/18 18:59 06:59 18:59 Intake Total 188.778 Balance 188.778 Weight 124 kg 124 kg Intake: Intake, IV Titration 128.778 Amount Heparin Sod,Pork in 0.45% 128.778 NaCl 25,000 unit In 0.45 % NaCl 1 250ml.bag @ 7.8 UNITS/KG/HR 9.906 mls/hr IV .Q24H [facility] Rx#: [id number] Oral 60 Other: Voiding Method Toilet Toilet Toilet # Voids 1 3 1 # Bowel Movements 1 - Exam General: [non toxic], [no distress], [appears at stated age] Derm: [warm], [dry] Head: [atraumatic], [normocephalic], [symmetric] Eyes: [EOMI], [no lid lag], [anicteric sclera] Mouth: [no lip lesion], [mucus membranes moist] Cardiovascular: [S1S2 reg], [irregularly regular], [positive DP pulse bilateral], Lungs: [CTA bilateral], [no rhonchi, no rales] , [no accessory muscle use] Abdominal: [soft], [ nontender to palpation], [no guarding], [no appreciable organomegaly] Ext: [no gross muscle atrophy], [no edema], [no contractures] Neuro: [no focal neuro deficits] Psych: [Alert], [oriented], [appropriate affect] - Labs CBC & Chem 7: 08/05/18 08:45 08/04/18 07:26 Labs: Abnormal Lab Results - Last 24 Hours (Table) 08/04/18 08/04/18 08/05/18 Range/Units 12:31 15:00 01:29 WBC (3.8-10.6) k/uL RBC 2.92 L (3.80-5.40) m/uL Hgb 8.8 L (11.4-16.0) gm/dL Hct 27.4 L (34.0-46.0) % Neutrophils # (1.3-7.7) k/uL APTT 30.6 H (22.0-30.0) sec CK-MB (CK-2) (0.0-2.4) ng/mL Troponin I (0.000-0.034) ng/mL HDL Cholesterol (40-60) mg/dL Stool Occult Blood Positive H (Negative) 08/05/18 08/05/18 08/05/18 Range/Units 08:45 08:45 08:45 WBC 11.2 H (3.8-10.6) k/uL RBC 2.86 L (3.80-5.40) m/uL Hgb 8.7 L (11.4-16.0) gm/dL Hct 27.1 L (34.0-46.0) % Neutrophils # 8.7 H (1.3-7.7) k/uL APTT (22.0-30.0) sec CK-MB (CK-2) 6.2 H (0.0-2.4) ng/mL Troponin I 0.937 H* (0.000-0.034) ng/mL HDL Cholesterol 35 L (40-60) mg/dL Stool Occult Blood (Negative) 08/05/18 Range/Units 09:11 WBC (3.8-10.6) k/uL RBC (3.80-5.40) m/uL Hgb (11.4-16.0) gm/dL Hct (34.0-46.0) % Neutrophils # (1.3-7.7) k/uL APTT 57.6 H (22.0-30.0) sec CK-MB (CK-2) (0.0-2.4) ng/mL Troponin I (0.000-0.034) ng/mL HDL Cholesterol (40-60) mg/dL Stool Occult Blood (Negative) Assessment and Plan Assessment: Assessment and Plan 1. Dizziness 2. Elevated troponin 3. Hypertension 4. Atrial fibrillation 5. Chronic venous stasis changes 1. Dizziness described as vertigo, orthostasis versus cardiac/ACS. Orthostatic vitals initially positive, negative this morning. BP medication initially held due to hypotension, reintroduced yesterday night. Troponin is 0.033, 0.035, 0.410, 0.937 with EKG showing atrial fibrillation with ST and T-wave abnormalities. Cardiology consulted, recommends possible coronary catheterization. D-dimer is negative, no concerns for PE at this time. Continue normal saline at 50 mL per hour. Fall precautions. Telemetry monitoring. Continue heparin drip for concerns of ACS. We will follow cardiology recommendations. Follow PT and OT recommendations. 2. Unknown etiology. Possible ACS. Continue heparin drip. Continue aspirin and Lipitor. Continue beta louann. Telemetry monitoring. Follow cardiology recommendations. 3. BP 114/66. Continue Coreg. Monitor vitals, adjust medications as necessary. 4. Rate controlled with Coreg. Continue heparin drip for anticoagulation. Telemetry monitoring. Keep potassium greater than 4 magnesium greater than 2. Will follow cardiology recommendations. 5. We will follow vascular surgery Dr. Lind recommendations. Patient admitted for dizziness. Symptoms now resolved. Troponin continues to remain elevated. Cardiology consulted for possible Coronary catheterization.
--- NOTE | 2018-08-05 11:53 | CONS ---
DATE OF CONSULTATION: 08/05/2018 This is a 67-year-old female. She has been admitted with history of dizziness and history of A. fib on Eliquis. The patient takes diuretics and the patient has a chronic venous insufficiency involving the both lower extremities. No rest pain. No tissue loss. SURGICAL HISTORY: Patient had a heart catheterization and coronary stent placed in the past, hysterectomy and orthopedic surgery. PHYSICAL EXAMINATION: On examination, patient was seen in her room. The patient has some obesity. Neck is supple. Chest is clear. Abdomen is soft. Femorals are 1+. The patient has a of both lower extremities. No venous or arterial ulcer noted. At this point, patient has no evidence of DVT. We will follow in my office when she is discharged for chronic venous insufficiency. No surgical intervention needed at this point. MMODL / IJN: [id number] / MTDD
[2018-08-05] MEDS: HEPARIN SOD,PORK IN 0.45% NACL 25,000 UNIT in 0.45% NACL 1 250ML.BAG IV SCH (12:31)
[2018-08-05] MEDS ORDERED: KETOROLAC 30 MG/ML 1 ML VIAL IVP PRN (13:35)
--- NOTE | 2018-08-05 14:34 | P.PN ---
Progress Note - Text Progress Note Date: 08/05/18 Is is an addendum to the cardiology progress note dictated earlier today. D- dimer came back negative. Her troponin came back at 0.93, TSH 2.08. I did have a lengthy discussion with the patient regarding proceeding with cardiac catheterization, her decision at this time is to continue with maximum medical therapy, she states that she may consider a heart cath down the road but not at present. I also spoke with her regarding the importance of having a GI workup regarding her anemia. We will continue with a baby aspirin, Lipitor 80, Coreg 3.125 mg by mouth twice a day, add a small dose of RASHAAD inhibitor to her medication regime as well. DNP note has been reviewed, I agree with a documented findings and plan of care. Patient was seen and examined.
--- NOTE | 2018-08-05 16:05 | CDI ---
Documentation Clarification Form Date: 08/05/2018 3:40:48 PM From: Shayy Haley RN, CCDS Admit Date: 08/03/2018 7:21:00 PM Patient Name: Ekaterina Carcamo Visit Number: [id number] Discharge Date: ATTENTION: The Clinical Documentation Specialists (CDI) and [facility] Coding Staff appreciate your assistance in clarifying documentation. Please respond to the clarification below the line at the bottom and electronically sign. The CDI & [facility] Coding staff will review the response and follow-up if needed. Please note: Queries are made part of the Legal Health Record. If you have any questions, please contact the author of this message via ITS. Dr. Toney Hickey The patient presented with lightheadness, worse with standing. Evidence of myocardial injury is in your progress notes on 08/05/18 and further clarification is needed to specify the diagnosis. History/Risk Factors: Syncope, Congestive Heart Failure, Atrial Fibrillation, Hypertension, Coronary artery disease-prior coronary stenting, Clinical Indicators: Transferred to telemetry because of abnormal ECGs with ST-T changes. She has had borderline rising troponins. Lab findings: Troponins 0.033, 0.035, 0.410, 0.937 [id number] Vital Signs: 92/65 81 16 98.2 Treatment: library monitor Aspirin, Lipitor, Coreg Monitor Labs, Troponins, Heparin IV In your professional opinion, can you please clarify myocardial injury? Acute coronary syndrome (meaning acute AR, please specify type) Acute AR Ruled out Other, please specify Unable to determine (Last Revision: August 2017) UNABLE TO DETERMINE BEYOND MYOCARDIAL INJURY MTDD
[2018-08-05] MEDS: ACETAMINOPHEN TAB 325 MG TAB PO PRN ×2 (17:38→21:12)
[2018-08-05] MEDS ORDERED: ATORVASTATIN 80 MG TAB PO SCH (21:00)
[2018-08-06 07:01] LABS: Anisocytosis Slight; Basophils % (A) 0 %; Eosinophils # (A) 0.3 k/uL (0-0.7); Eosinophils % (A) 3 %; HCT 23.9 % (34.0-46.0); HGB 8.3 gm/dL (11.4-16.0); Lymphocytes # (A) 1.3 k/uL (1.0-4.8); Lymphocytes % (A) 13 %; MCH 31.6 pg (25.0-35.0); MCHC 34.8 g/dL (31.0-37.0); MCV 90.9 fL (80.0-100.0); Monocytes # (A) 0.4 k/uL (0-1.0); Monocytes % (A) 4 %; Neutrophils # (A) 7.7 k/uL (1.3-7.7); Neutrophils % (A) 79 %; Platelet Count 113 k/uL (150-450); RBC 2.63 m/uL (3.80-5.40); RDW 16.1 % (11.5-15.5); WBC 9.8 k/uL (3.8-10.6)
[2018-08-06 07:08] LABS: ALT 32 U/L (9-52); AST 24 U/L (14-36); Albumin 3.1 g/dL (3.5-5.0); Alkaline Phosphatase 92 U/L (38-126); Anion Gap 7 mmol/L; Blood Urea Nitrogen 21 mg/dL (7-17); Calcium 10.3 mg/dL (8.4-10.2); Carbon Dioxide 20 mmol/L (22-30); Chloride 112 mmol/L (98-107); Glucose 114 mg/dL (74-99); Potassium 4.8 mmol/L (3.5-5.1); Sodium 139 mmol/L (137-145); Total Bilirubin 0.6 mg/dL (0.2-1.3)
[2018-08-06 07:50] LABS: Creatine Kinase MB 4.9 ng/mL (0.0-2.4)
[2018-08-06 07:53] LABS: Troponin I 0.728 ng/mL (0.000-0.034)
[2018-08-06 07:56] VITALS: PULSE 88; TEMP 97.8
[2018-08-06 07:56] LABS: Large Platelets Present
[2018-08-06] MEDS: CARVEDILOL 3.125 MG TAB PO SCH ×2 (08:36→17:05)
[2018-08-06] MEDS: ASPIRIN 81 MG PO SCH (08:36)
[2018-08-06] MEDS ORDERED: LISINOPRIL 2.5 MG TAB PO SCH (09:00)
[2018-08-06] MEDS ORDERED: APIXABAN 5 MG TAB PO SCH (09:00)
[2018-08-06] MEDS: ACETAMINOPHEN TAB 325 MG TAB PO PRN ×2 (09:44→17:06)
[2018-08-06] MEDS: SODIUM CHLORIDE 0.45% 1,000 ML IV SCH (10:57)
[2018-08-06 12:30] VITALS: RESP 16
--- NOTE | 2018-08-06 13:29 | P.PN ---
Subjective Progress Note Date: 08/06/18 This is a 67-year-old female with history of paroxysmal atrial fibrillation, hypertension, hyperlipidemia, coronary artery disease with prior stent placement, who does not follow regularly with Dr. Navarro appointments, she also is a current smoker. She presented to the hospital with symptoms of lightheadedness and dizziness with near-syncope, she also was experiencing some crampy abdominal discomfort and was having episodes of diarrhea. Her dizziness symptoms seemed to be consistent with vertigo. Patient however did have noted EKG changes in the inferior lateral leads, and troponins went up to 0.9 suggesting acute coronary syndrome. Dr. Hickey did have a lengthy discussion with the patient, as did I yesterday, she really wishes at this time to maximize her medical therapy and discuss cardiac catheterization with her [id number] as an outpatient. We maximize the patient's medications, this morning she was sitting up in a chair quite comfortable. Denied any dizziness or lig htheadedness, no palpitations, no chest discomfort. Blood pressure 115/60 with a heart rate in the 80s, 98% on room air. White blood cell count 9.8, hemoglobin 8.3, platelet count 113. Sodium 139, potassium 4.8, BUN 21 and creatinine 0.6. Objective - Vital Signs Vital signs: Vital Signs Temp 97.8 F 08/06/18 07:55 Pulse 88 08/06/18 11:47 Resp 16 08/06/18 11:47 BP 83/58 08/06/18 11:47 Pulse Ox 100 08/06/18 11:47 Intake & Output 08/05/18 08/06/18 08/06/18 18:59 06:59 18:59 Intake Total 420 380 Output Total 400 700 Balance 20 -700 380 Weight 124 kg 125 kg Intake: Oral 420 380 Output: Urine 400 700 Other: Voiding Method Toilet Toilet Toilet # Voids 1 1 1 # Bowel Movements 1 - Exam Gen: This is a 67-year-old morbidly obese female. Patient is resting in bed appears to be comfortable Vital signs: HEENT: Head is atraumatic, normocephalic. Pupils equal, round. Sclerae is anicteric. NECK: Supple. No JVD. No lymphadenopathy. No thyromegaly. LUNGS: Clear to auscultation. No wheezes or rhonchi. No intercostal retractions. HEART: Regular rate and rhythm. No murmur. ABDOMEN: Soft. Bowel sounds are present. No masses. No tenderness. EXTREMITIES: No pedal edema. No calf tenderness. NEUROLOGICAL: Patient is awake, alert and oriented x3. Cranial nerves 2 through 12 are grossly intact. - Labs CBC & Chem 7: 08/06/18 06:19 08/06/18 06:19 Labs: Abnormal Lab Results - Last 24 Hours (Table) 08/05/18 08/06/18 08/06/18 Range/Units 14:27 06:19 06:19 RBC 2.63 L (3.80-5.40) m/uL Hgb 8.3 L (11.4-16.0) gm/dL Hct 23.9 L (34.0-46.0) % RDW 16.1 H (11.5-15.5) % Plt Count 113 L (150-450) k/uL APTT (22.0-30.0) sec Chloride 112 H (98-107) mmol/L Carbon Dioxide 20 L (22-30) mmol/L BUN 21 H (7-17) mg/dL Glucose 114 H (74-99) mg/dL Calcium 10.3 H (8.4-10.2) mg/dL CK-MB (CK-2) (0.0-2.4) ng/mL Troponin I 0.805 H* (0.000-0.034) ng/mL Total Protein 6.0 L (6.3-8.2) g/dL Albumin 3.1 L (3.5-5.0) g/dL 08/06/18 08/06/18 Range/Units 06:19 06:19 RBC (3.80-5.40) m/uL Hgb (11.4-16.0) gm/dL Hct (34.0-46.0) % RDW (11.5-15.5) % Plt Count (150-450) k/uL APTT 49.0 H (22.0-30.0) sec Chloride (98-107) mmol/L Carbon Dioxide (22-30) mmol/L BUN (7-17) mg/dL Glucose (74-99) mg/dL Calcium (8.4-10.2) mg/dL CK-MB (CK-2) 4.9 H (0.0-2.4) ng/mL Troponin I 0.728 H* (0.000-0.034) ng/mL Total Protein (6.3-8.2) g/dL Albumin (3.5-5.0) g/dL Assessment and Plan Plan: Assessment and plan #1 symptoms of dizziness and lightheadedness, suggestive of possible vertigo. #2 abnormality in troponins and EKG suggesting acute coronary syndrome. #3 chronic persistent atrial fibrillation #4 anemia #5 coronary artery disease history with prior stent placement #6 hyperlipidemia #7 nicotine dependence Plan From cardiology's perspective, we will continue maximal medical therapy at this time. Patient is stable for discharge from our perspective. She wishes to discuss cardiac catheterization option with her [id number] and son once she is discharged home. Follow-up appointment will be made with Dr. Hickey in the office post discharge. DNP note has been reviewed, I agree with a documented findings and plan of care. Patient was seen and examined.
--- NOTE | 2018-08-06 13:53 | P.DS ---
Providers Date of admission: 08/03/18 19:21 Expected date of discharge: 08/06/18 Attending physician: Brunilda Fowler MD Consults: 08/03/18 22:34 Consult Physician Routine Consulting Provider: Praneeth Lind Consult Reason/Comments: peripheral venous insufficiency Do you want consulting provider notified?: Yes, Notify in am 08/04/18 10:21 Consult Physician Routine Consulting Provider: Toney Hickey Consult Reason/Comments: elevated troponin Do you want consulting provider notified?: Yes Primary care physician: [facility] Hospital Course: 67 year old female with chronic afib on eliquis Patient presented today with dizziness of one day duration started around noon and after couple hours patient noticed that she's not improving decided to come the hospital. Patient lives alone and uses a walker to ambulate she has a history of mechanical fall a few weeks ago without loss of consciousness or injury to the head she fell on her nose and she had some bleeding from the nose. Patient takes Eliquis for A. fib and she denies any GI bleeding at this time. Patient dizziness is of postural in nature, denies any associated headache changes in vision or hearing or any new onset focal neurologic deficits. Denies any palpitation chest pain or trouble breathing denies any abdominal pain nausea or vomiting. Patient claims that she takes 4 different types of diuretics at home for her chronic venous insufficiency and leg swelling. She denies any recent changes in her medications. In the ED patient was given some diuretics due to suspected heart failure. Her most recent echo from last year shows normal left ventricular ejection fraction. Patient doesn't have history of congestive heart failure. Diuretics were discontinued patient was hypotensive on the floor patient was given some IV fluids and will be monitored closely. Patient described her dizziness is vertiginous in nature, orthostatic versus cardiac/ACS in nature. Orthostatic vitals were initially positive, patient was hydrated and 50 mL/h. Orthostatic vitals were negative on day 2. Her antihypertensive medications were initially held due to hypotension and reintroduced on day 2. Troponin was 0.033, 0.035, 0.410, 0.937, 0.805, 0.7-8 with EKG showing atrial fibrillation with ST and T-wave abnormalities. Cardiology was consulted and recommended coronary catheterization. Patient was started on a heparin drip which was discontinued on the day of discharge. Discussion between cardiology and the patient resulted in a decision being made to pursue cardiac catheterization in the outpatient setting after patient discusses with her son and daughter. Physical therapy and occupational therapy saw the patient, advised rehab versus home with home care. Patient was seen and examined prior to discharge. No acute events overnight. Patient reports no dizziness. She denies any chest pain, shortness of breath or palpitations. Patient complains of vaginal itching, ongoing for many months, previously treated with 2 pills with complete resolution. She denies any vaginal itching, pelvic pain. No changes in urination or bowel habits. General: [non toxic], [no distress], [appears at stated age] Derm: [warm], [dry] Head: [atraumatic], [normocephalic], [symmetric] Eyes: [EOMI], [no lid lag], [anicteric sclera] Mouth: [no lip lesion], [mucus membranes moist] Cardiovascular: [S1S2 reg], [irregularly regular], [positive DP pulse bilateral], Lungs: [CTA bilateral], [no rhonchi, no rales] , [no accessory muscle use] Abdominal: [soft], [ nontender to palpation], [no guarding], [no appreciable organomegaly] Ext: [no gross muscle atrophy], [no edema], [no contractures] Neuro: [no focal neuro deficits] Psych: [Alert], [oriented], [appropriate affect] Assessment and Plan 1. Dizziness 2. Elevated troponin 3. Hypertension 4. Atrial fibrillation 5. Chronic venous stasis changes 1. Dizziness described as vertigo, orthostasis versus cardiac/ACS. Orthostatic vitals initially positive, negative this morning. BP medication initially held due to hypotension, which has returned to baseline since, antihypertensives resumed. Troponin is 0.033, 0.035, 0.410, 0.937, 0.805, 0.728 with EKG showing atrial fibrillation with ST and T-wave abnormalities. Cardiology consulted, recommends possible coronary catheterization. Decision made by patient to defer cardiac catheterization to the outpatient setting, need to discuss with son and daughter. D-dimer is negative, no concerns for PE at this time. Fall precautions. Telemetry monitoring. Discontinue heparin drip. 2. Unknown etiology. Possible ACS. Discontinue heparin drip. Continue aspirin and Lipitor. Continue beta louann. Telemetry monitoring. Follow cardiology recommendations. 3. BP 83/58. Continue Coreg. Monitor vitals, adjust medications as necessary. 4. Rate controlled with Coreg. Discontinue heparin drip and restart Eliquis. Telemetry monitoring. Keep potassium greater than 4 magnesium greater than 2. Will follow cardiology recommendations. 5. We will follow vascular surgery Dr. Lind recommendations. Patient admitted for dizziness. Symptoms now resolved. Patient to follow-up in the outpatient setting for decision of cardiac catheterization, will discuss with son and daughter. This complex discharge took greater than 30 minutes. Pertinent Studies: Chest x-ray, echocardiogram Patient Condition at Discharge: Stable Plan - Discharge Summary Discharge Rx Participant: Yes New Discharge Prescriptions: New Apixaban [Eliquis] 5 mg PO BID tab Atorvastatin [Lipitor] 80 mg PO HS #30 tab Nitroglycerin Sl Tabs [Nitrostat] 0.4 mg SUBLINGUAL Q5M PRN #25 tab PRN Reason: Chest Pain Lisinopril [Zestril] 2.5 mg PO DAILY tab Continue Cinacalcet HCl [Sensipar] 30 mg PO BID Ergocalciferol [Vitamin D2 (DRISDOL)] 50,000 unit PO Q7D Apixaban [Eliquis] 5 mg PO BID traZODone HCL 50 mg PO HS Oxybutynin Chloride [Ditropan XL] 5 mg PO DAILY Ammonium Lactate Cream [Lac-Hydrin 12% Cream] 1 applic TOPICAL BID Fluconazole 200 mg PO DAILY #1 tablet Aspirin [Adult Low Dose Aspirin EC] 81 mg PO DAILY #30 tablet. Carvedilol [Coreg] 3.125 mg PO BID-W/MEALS #60 tab Discontinued Lisinopril [Zestril] 2.5 mg PO DAILY #30 tab Spironolactone [Aldactone] 25 mg PO DAILY Isosorbide Mononitrate ER [Imdur] 30 mg PO DIRECTED Bumetanide 0.5 mg PO QID Discharge Medication List Apixaban [Eliquis] 5 mg PO BID 10/27/17 [History] Cinacalcet HCl [Sensipar] 30 mg PO BID 10/27/17 [History] Ergocalciferol [Vitamin D2 (DRISDOL)] 50,000 unit PO Q7D 10/27/17 [History] Ammonium Lactate Cream [Lac-Hydrin 12% Cream] 1 applic TOPICAL BID 08/05/18 [History] Oxybutynin Chloride [Ditropan XL] 5 mg PO DAILY 08/05/18 [History] traZODone HCL 50 mg PO HS 08/05/18 [History] Apixaban [Eliquis] 5 mg PO BID tab 08/06/18 [Rx] Aspirin [Adult Low Dose Aspirin EC] 81 mg PO DAILY #30 tablet.dr 08/06/18 [Rx] Atorvastatin [Lipitor] 80 mg PO HS #30 tab 08/06/18 [Rx] Carvedilol [Coreg] 3.125 mg PO BID-W/MEALS #60 tab 08/06/18 [Rx] Fluconazole 200 mg PO DAILY #1 tablet 08/06/18 [Rx] Lisinopril [Zestril] 2.5 mg PO DAILY tab 08/06/18 [Rx] Nitroglycerin Sl Tabs [Nitrostat] 0.4 mg SUBLINGUAL Q5M PRN #25 tab 08/06/18 [Rx] Follow up Appointment(s)/Referral(s): Roberto Saunders MD [Primary Care Provider] - 08/08/18 (. Office will call on the day of appointment with a time) Parviz Jackson MD [STAFF PHYSICIAN] - 1 Week (Spoke to veterinary receptionist. Office to call with appointment time. ) [facility] Visiting Nurse, [NON-STAFF] - Activity/Diet/Wound Care/Special Instructions: Diet: Heart healthy Take all medications as advised. Take Nitrostat if experiencing chest pain and call 911 for any concerning symptoms chest pain, shortness of breath, palpitations, dizziness. Discharge Disposition: HOME SELF-CARE
[2018-08-06 16:38] VITALS: BP 98/54
[2018-08-06] MEDS ORDERED: MICONAZOLE 2% VAGINAL CREAM 45 GM TUBE/KIT VAGINAL SCH (21:00)
== END 2018-08-06 19:30 | disposition home health service (06) | DRG 311 ==
LOC: EC 16:58 → 4SSUR 19:21 → 3SCARD 08-04 16:49
PROVIDERS: ADMIT Internal Medicine; ATTEND Internal Medicine
DX: I24.9 Acute ischemic heart disease, unspecified (principal); I48.1 Persistent atrial fibrillation; N17.9 Acute kidney failure, unspecified; E87.2 Acidosis; Z68.43 Body mass index [BMI] 50.0-59.9, adult; E66.01 Morbid (severe) obesity due to excess calories; I95.1 Orthostatic hypotension; D64.9 Anemia, unspecified; T50.2X5A Adverse effect of carbonic-anhydrase inhibitors, benzothiadiazides and other diuretics, initial encounter; E86.0 Dehydration; R19.7 Diarrhea, unspecified; I10 Essential (primary) hypertension; E78.5 Hyperlipidemia, unspecified; H26.9 Unspecified cataract; F17.200 Nicotine dependence, unspecified, uncomplicated; I25.118 Atherosclerotic heart disease of native coronary artery with other forms of angina pectoris; I87.2 Venous insufficiency (chronic) (peripheral); I87.8 Other specified disorders of veins; M19.90 Unspecified osteoarthritis, unspecified site; Z79.01 Long term (current) use of anticoagulants; Z79.82 Long term (current) use of aspirin; Z79.899 Other long term (current) drug therapy; Z95.5 Presence of coronary angioplasty implant and graft; Z91.81 History of falling; Z85.42 Personal history of malignant neoplasm of other parts of uterus; Z90.710 Acquired absence of both cervix and uterus; Z96.653 Presence of artificial knee joint, bilateral
CPT/HCPCS: 36415; 71046; 80048; 80053; 80061; 81003; 82272; 82550; 82553; 83735; 83880; 84443; 84484; 85025; 85379; 85610; 85730; 93005; 93306; 96361; 96374; 99285

== ENCOUNTER 2018-08-15 14:50 | Inpatient (IN) | payer MEDICARE, OTHER ==
--- NOTE | 2018-08-15 17:09 | ED ---
General Adult HPI - General Chief complaint: Shortness of Breath Stated complaint: SOB, sent by budget controller Time Seen by Provider: 08/15/18 16:59 Source: patient, RN notes reviewed, old records reviewed Mode of arrival: ambulatory Limitations: no limitations - History of Present Illness Initial comments: 67-year-old female presents for evaluation of dyspnea, lower extremity swelling. Patient had an appointment with her primary care physician today and she was unable to make this appointment secondary to exertional dyspnea. She has history of atrial fibrillation and congestive heart failure. She states she was admitted to the hospital in the past several weeks and was told she required cardiac stents. She left the hospital prior to receiving this procedure. She has been presenting with persistent dyspnea and lower extremity swelling. She denies any chest pain at the time my evaluation. Denies cough, denies fever or chills. She is currently on Eliquis, and Bumex - Related Data Home Medications Medication Instructions Recorded Confirmed Apixaban [Eliquis] 5 mg PO BID 10/27/17 08/15/18 Cinacalcet HCl [Sensipar] 30 mg PO BID 10/27/17 08/15/18 Bumetanide 1 mg PO BID 08/15/18 08/15/18 Cholecalciferol (Vitamin D3) 2,000 unit PO DAILY 08/15/18 08/15/18 [Vitamin D3] Previous Rx's Medication Instructions Recorded Aspirin [Adult Low Dose Aspirin EC] 81 mg PO DAILY #30 tablet. 08/06/18 Atorvastatin [Lipitor] 80 mg PO HS #30 tab 08/06/18 Carvedilol [Coreg] 3.125 mg PO BID-W/MEALS #60 tab 08/06/18 Lisinopril [Zestril] 2.5 mg PO DAILY tab 08/06/18 Nitroglycerin Sl Tabs [Nitrostat] 0.4 mg SUBLINGUAL Q5M PRN #25 tab 08/06/18 Allergies Allergy/AdvReac Type Severity Reaction Status Date / Time No Known Allergies Allergy Verified 08/15/18 17:16 Review of Systems ROS Statement: Those systems with pertinent positive or pertinent negative responses have been documented in the HPI. ROS Other: All systems not noted in ROS Statement are negative. Past Medical History Past Medical History: Atrial Fibrillation, Heart Failure, Hypertension Additional Past Medical History / Comment(s): UTERINE CANCER. LT CATARACT History of Any Multi-Drug Resistant Organisms: None Reported Past Surgical History: Heart Catheterization With Stent, Hysterectomy, Orthopedic Surgery Additional Past Surgical History / Comment(s): UZMA KNEE REPLACMENTS, RT ANKLE- METAL PLATE, RT ARM SX REPAIR D/T LACERATION. RT THUMB TENDON REPAIR," LT FOOT GREAT TOE BONE REMOVED". Stent x 2 (2003) Past Anesthesia/Blood Transfusion Reactions: Blood Transfusion Reaction Additional Past Anesthesia/Blood Transfusion Reaction / Comment(s): PAST BLOOD [id number] Date of Last Stent Placement:: 2003 Past Psychological History: No Psychological Hx Reported Smoking Status: Current every day smoker Past Alcohol Use History: None Reported Past Drug Use History: None Reported - Past Family History Mother Family Medical History: No Reported History Father History Unknown: Yes General Exam Limitations: no limitations General appearance: alert, in no apparent distress Head exam: Present: atraumatic, normocephalic Eye exam: Present: normal appearance, PERRL ENT exam: Present: normal exam Neck exam: Present: normal inspection. Absent: tenderness, meningismus Respiratory exam: Present: rales, decreased breath sounds Cardiovascular Exam: Present: regular rate, irregular rhythm GI/Abdominal exam: Present: soft. Absent: distended, tenderness Extremities exam: Present: pedal edema Neurological exam: Present: alert, oriented X3, CN II-XII intact. Absent: motor sensory deficit Psychiatric exam: Present: normal affect, normal mood Skin exam: Present: warm, dry, intact. Absent: cyanosis, diaphoretic Course Vital Signs 08/15/18 15:09 Temperature 98 F Pulse Rate 78 Respiratory 18 Rate Blood Pressure 94/46 O2 Sat by Pulse 100 Oximetry EKG Findings - EKG Comments: EKG Findings:: EKG: Atrial fibrillation, PVC, low voltage, rate of 70, QRS duration 106, QTC 425, ST segment depression, minimal lateral precordium no ST segment elevation. Medical Decision Making - Medical Decision Making Patient presenting with dyspnea, lower extremity swelling, history of heart failure. She states that she was previously admitted to the hospital with plan for heart cath, she left at that time not wanting to receive heart catheterization. She is presenting with dyspnea, lotion swelling. Chest x-ray shows cardiomegaly, no yolanda pulmonary edema. Hemoglobin stable 8.8 from 8.3. She has an elevated BNP at 2800. Troponin is 0.072 which is down trending from previous 0.7-8. She is anticoagulated. She will be On telemetry with cardiology on consult. - Lab Data Result diagrams: 08/15/18 17:38 08/15/18 17:38 Lab Results 08/15/18 08/15/18 08/15/18 Range/Units 17:38 17:38 17:38 WBC 9.0 (3.8-10.6) k/uL RBC 2.88 L (3.80-5.40) m/uL Hgb 8.8 L (11.4-16.0) gm/dL Hct 27.7 L (34.0-46.0) % MCV 96.4 D (80.0-100.0) fL MCH 30.6 (25.0-35.0) pg MCHC 31.7 (31.0-37.0) g/dL RDW 16.5 H (11.5-15.5) % Plt Count 181 D (150-450) k/uL Neutrophils % 81 % Lymphocytes % 12 % Monocytes % 3 % Eosinophils % 2 % Basophils % 0 % Neutrophils # 7.3 (1.3-7.7) k/uL Lymphocytes # 1.1 (1.0-4.8) k/uL Monocytes # 0.3 (0-1.0) k/uL Eosinophils # 0.2 (0-0.7) k/uL Basophils # 0.0 (0-0.2) k/uL Hypochromasia Moderate Anisocytosis Slight Macrocytosis Slight PT (9.0-12.0) sec INR (<1.2) APTT (22.0-30.0) sec Sodium 137 (137-145) mmol/L Potassium 4.8 (3.5-5.1) mmol/L Chloride 102 (98-107) mmol/L Carbon Dioxide 24 (22-30) mmol/L Anion Gap 11 mmol/L BUN 31 H (7-17) mg/dL Creatinine 0.89 (0.52-1.04) mg/dL Est GFR (CKD-EPI)AfAm 77 (>60 ml/min/1.73 sqM) Est GFR (CKD-EPI)NonAf 66 (>60 ml/min/1.73 sqM) Glucose 94 (74-99) mg/dL Calcium 9.7 (8.4-10.2) mg/dL Total Bilirubin 0.8 (0.2-1.3) mg/dL AST 27 (14-36) U/L ALT 31 (9-52) U/L Alkaline Phosphatase 97 (38-126) U/L Troponin I (0.000-0.034) ng/mL NT-Pro-B Natriuret Pep 2810 pg/mL Total Protein 7.1 (6.3-8.2) g/dL Albumin 4.0 (3.5-5.0) g/dL 08/15/18 08/15/18 Range/Units 17:38 17:38 WBC (3.8-10.6) k/uL RBC (3.80-5.40) m/uL Hgb (11.4-16.0) gm/dL Hct (34.0-46.0) % MCV (80.0-100.0) fL MCH (25.0-35.0) pg MCHC (31.0-37.0) g/dL RDW (11.5-15.5) % Plt Count (150-450) k/uL Neutrophils % % Lymphocytes % % Monocytes % % Eosinophils % % Basophils % % Neutrophils # (1.3-7.7) k/uL Lymphocytes # (1.0-4.8) k/uL Monocytes # (0-1.0) k/uL Eosinophils # (0-0.7) k/uL Basophils # (0-0.2) k/uL Hypochromasia Anisocytosis Macrocytosis PT 11.5 (9.0-12.0) sec INR 1.1 (<1.2) APTT 24.8 (22.0-30.0) sec Sodium (137-145) mmol/L Potassium (3.5-5.1) mmol/L Chloride (98-107) mmol/L Carbon Dioxide (22-30) mmol/L Anion Gap mmol/L BUN (7-17) mg/dL Creatinine (0.52-1.04) mg/dL Est GFR (CKD-EPI)AfAm (>60 ml/min/1.73 sqM) Est GFR (CKD-EPI)NonAf (>60 ml/min/1.73 sqM) Glucose (74-99) mg/dL Calcium (8.4-10.2) mg/dL Total Bilirubin (0.2-1.3) mg/dL AST (14-36) U/L ALT (9-52) U/L Alkaline Phosphatase (38-126) U/L Troponin I 0.072 H* (0.000-0.034) ng/mL NT-Pro-B Natriuret Pep pg/mL Total Protein (6.3-8.2) g/dL Albumin (3.5-5.0) g/dL Critical Care Time Critical Care Time: Yes Disposition Clinical Impression: Afib, Bilateral leg edema, Diastolic CHF, Elevated troponin Disposition: ADMITTED IP TO THIS [facility] Condition: Stable Is patient prescribed a controlled substance at d/c from ED?: No Referrals: Roberto Saunders MD [Primary Care Provider] - 1-2 days Decision to Admit Reason: Admit from EC Decision Date: 08/15/18 Decision Time: 18:46
--- NOTE | 2018-08-15 17:34 | XR ---
EXAMINATION TYPE: XR chest 2V DATE OF EXAM: 08/15/2018 COMPARISON: 08/03/2018 HISTORY: Difficulty breathing TECHNIQUE: Frontal and lateral views of the chest are obtained. FINDINGS: Heart is enlarged. There is some patchy atelectasis in the lower lung robled[place]. There is no heart failure. Thoracic aorta is atheromatous. Bony thorax is intact. IMPRESSION: There is some scarring and subsegmental atelectasis in the mid and lower lung robledo not significantly different than last exam. Mild cardiomegaly.
[2018-08-15 17:56] LABS: Anisocytosis Slight; Basophils % (A) 0 %; Eosinophils # (A) 0.2 k/uL (0-0.7); Eosinophils % (A) 2 %; HCT 27.7 % (34.0-46.0); HGB 8.8 gm/dL (11.4-16.0); Hypochromasia Moderate; Lymphocytes # (A) 1.1 k/uL (1.0-4.8); Lymphocytes % (A) 12 %; MCH 30.6 pg (25.0-35.0); MCHC 31.7 g/dL (31.0-37.0); MCV 96.4 fL (80.0-100.0); Macrocytosis Slight; Mean Platelet Volume 9.9; Monocytes # (A) 0.3 k/uL (0-1.0); Monocytes % (A) 3 %; Neutrophils # (A) 7.3 k/uL (1.3-7.7); Neutrophils % (A) 81 %; Platelet Count 181 k/uL (150-450); RBC 2.88 m/uL (3.80-5.40); RDW 16.5 % (11.5-15.5)
[2018-08-15 17:58] LABS: Calcium 9.7 mg/dL (8.4-10.2); Potassium 4.8 mmol/L (3.5-5.1); Total Bilirubin 0.8 mg/dL (0.2-1.3); Total Protein 7.1 g/dL (6.3-8.2)
[2018-08-15 18:01] LABS: INR 1.1 (<1.2); Partial Thromboplastin Time 24.8 sec (22.0-30.0); Prothrombin Time 11.5 sec (9.0-12.0)
[2018-08-15] MEDS ORDERED: FUROSEMIDE 10 MG/ML 4 ML VIAL IV STA (18:40)
[2018-08-15] MEDS ORDERED: ASPIRIN 325 MG TAB PO STA (18:40)
[2018-08-15] MEDS ORDERED: NITROGLYCERIN SL TABS 0.4 MG TAB SUBLINGUAL PRN (18:47)
[2018-08-15] MEDS ORDERED: NALOXONE 0.4 MG/ML 1 ML VIAL IV PRN (18:51)
[2018-08-15] MEDS ORDERED: APIXABAN 5 MG TAB PO SCH (21:00)
[2018-08-15] MEDS: ATORVASTATIN 80 MG TAB PO SCH (23:26)
[2018-08-16] MEDS: BUMETANIDE 1 MG TAB PO SCH ×3 (00:20→23:40)
[2018-08-16 06:33] LABS: Anisocytosis Slight; Basophils % (A) 0 %; Eosinophils # (A) 0.1 k/uL (0-0.7); Eosinophils % (A) 1 %; HCT 27.9 % (34.0-46.0); HGB 9.3 gm/dL (11.4-16.0); Hypochromasia Slight; Lymphocytes # (A) 1.5 k/uL (1.0-4.8); Lymphocytes % (A) 15 %; MCH 31.6 pg (25.0-35.0); MCHC 33.3 g/dL (31.0-37.0); MCV 94.9 fL (80.0-100.0); Monocytes # (A) 0.4 k/uL (0-1.0); Monocytes % (A) 4 %; Neutrophils # (A) 7.7 k/uL (1.3-7.7); Neutrophils % (A) 79 %; Platelet Count 208 k/uL (150-450); RBC 2.94 m/uL (3.80-5.40); RDW 17.2 % (11.5-15.5); WBC 9.7 k/uL (3.8-10.6)
[2018-08-16 07:05] LABS: Albumin 4.2 g/dL (3.5-5.0); Calcium 9.9 mg/dL (8.4-10.2); Potassium 3.7 mmol/L (3.5-5.1); Total Bilirubin 0.8 mg/dL (0.2-1.3); Total Protein 7.7 g/dL (6.3-8.2)
[2018-08-16] MEDS: CARVEDILOL 3.125 MG TAB PO SCH ×2 (07:19→17:10)
[2018-08-16] MEDS: NITROGLYCERIN OINT 1 INCH/GM PACKET TOPICAL SCH ×3 (08:41→23:40)
[2018-08-16] MEDS: LISINOPRIL 2.5 MG TAB PO SCH (08:42)
[2018-08-16] MEDS: ASPIRIN 81 MG PO SCH (08:42)
[2018-08-16] MEDS: HEPARIN SOD,PORK IN 0.45% NACL 25,000 UNIT in 0.45% NACL 1 250ML.BAG IV SCH (08:44)
--- NOTE | 2018-08-16 10:26 | P.CRDCN ---
History of Present Illness History of present illness: This is Dr. Hickey dictating a consult on this patient The patient was interviewed and examined by me IMPRESSION / ASSESSMENT: Non-Q-wave myocardial infarction, recurrent Atrial fibrillation Patient presented with shortness of breath PLAN: Hold ELIQUIS Start heparin without a bolus Continue beta blockers and other cardiac medications including statins and aspirin Coronary angiography after holding ELIQUIS for 3 doses and she got a dose last evening Discussed with Dr. Jackson who she was supposed to see yesterday but came to the hospital instead He is planning coronary angiography tomorrow HPI Patient presented with increasing shortness of breath once again. No chest discomfort Past history of atrial fibrillation congestive heart failure and a recent non-Q-wave [place] Patient declined coronary angiography at that time she wanted medical treatment She comes in today and her first few words to me are, 'I am ready for the stent' She is pain-free and looks comfortable at this time ROS: No fever chills or rigors, no cough, phlegm or expectoration, no nausea, vomiting or diarrhea, no hematuria, dysuria, no musculoskeletal complaints, no strokes or seizures, no skin lesions. EXAMINATION: Blood pressure 105/40 mmHg pulse rate in the 70s afebrile Breath sounds are clear no rhonchi no crackles Heart sounds. Normal no murmurs or gallop. Extent is warm no edema REVIEW OF LABS, ECG & MEDICAL DATA Hemoglobin 9.3, platelet count 208,000 Sodium 138, potassium 3.7, BUN 30 and creatinine 0.87 Troponins 0.072, 0.068 and 0.071 ProBNP 2800 Twelve-lead ECG shows sinus rhythm with ST depression 1 mm in the lateral precordial leads and high lateral leads A follow-up to lead ECG shows more prominent changes but she is completely asymptomatic. Heparin is being initiated Continue Nitropaste Past Medical History Past Medical History: Atrial Fibrillation, Heart Failure, Hypertension Additional Past Medical History / Comment(s): UTERINE CANCER. LT CATARACT History of Any Multi-Drug Resistant Organisms: None Reported Past Surgical History: Heart Catheterization With Stent, Hysterectomy, Orthopedic Surgery Additional Past Surgical History / Comment(s): UZMA KNEE REPLACMENTS, RT ANKLE- METAL PLATE, RT ARM SX REPAIR D/T LACERATION. RT THUMB TENDON REPAIR," LT FOOT GREAT TOE BONE REMOVED". Stent x 2 (2003) Past Anesthesia/Blood Transfusion Reactions: Blood Transfusion Reaction Additional Past Anesthesia/Blood Transfusion Reaction / Comment(s): PAST BLOOD [id number] Date of Last Stent Placement:: 2003 Past Psychological History: No Psychological Hx Reported Additional Psychological History / Comment(s): PT LIVES ALONE IN [place].NO STEPS TO CLIMB. NO PETS. 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 Smoking Status: Former smoker Past Alcohol Use History: None Reported Additional Past Alcohol Use History / Comment(s): STARTED SMOKING AT AGE 14 USED TO SMOKE 1.5 PPD NOW DOWN TO 3-5 CIG PER DAY Past Drug Use History: None Reported - Past Family History Mother Family Medical History: No Reported History Father History Unknown: Yes Medications and Allergies Home Medications Medication Instructions Recorded Confirmed Type Apixaban [Eliquis] 5 mg PO BID 10/27/17 08/15/18 History Cinacalcet HCl [Sensipar] 30 mg PO BID 10/27/17 08/15/18 History Aspirin [Adult Low Dose Aspirin EC] 81 mg PO DAILY #30 tablet. 08/06/18 08/15/18 Rx Atorvastatin [Lipitor] 80 mg PO HS #30 tab 08/06/18 08/15/18 Rx Carvedilol [Coreg] 3.125 mg PO BID-W/MEALS #60 tab 08/06/18 08/15/18 Rx Lisinopril [Zestril] 2.5 mg PO DAILY tab 08/06/18 08/15/18 Rx Nitroglycerin Sl Tabs [Nitrostat] 0.4 mg SUBLINGUAL Q5M PRN #25 tab 08/06/18 08/15/18 Rx Bumetanide 1 mg PO BID 08/15/18 08/15/18 History Cholecalciferol (Vitamin D3) 2,000 unit PO DAILY 08/15/18 08/15/18 History [Vitamin D3] Allergies Allergy/AdvReac Type Severity Reaction Status Date / Time No Known Allergies Allergy Verified 08/15/18 17:16 Physical Exam Vitals: Vital Signs Temp Pulse Pulse Resp BP BP Pulse Ox 08/16/18 08:33 98.6 F 76 18 102/62 98 08/16/18 04:00 97.8 F 72 18 105/40 99 08/16/18 00:00 97.9 F 82 18 107/62 96 04/11/19 22:10 66 18 97/66 100 08/15/18 20:35 98.0 F 83 18 97/66 97 08/15/18 19:42 98 F 64 16 120/59 100 08/15/18 15:09 98 F 78 18 94/46 100 Intake and Output 08/15/18 08/16/18 08/16/18 22:59 06:59 14:59 Other: Voiding Method Toilet Weight 125.645 kg Results 08/16/18 06:05 08/16/18 06:05 Cardiac Enzymes 08/15/18 08/15/18 08/15/18 Range/Units 17:38 17:38 23:44 AST 27 (14-36) U/L Troponin I 0.072 H* 0.068 H* (0.000-0.034) ng/mL 08/16/18 08/16/18 Range/Units 06:05 06:05 AST 24 (14-36) U/L Troponin I 0.071 H* (0.000-0.034) ng/mL Coagulation 08/15/18 Range/Units 17:38 PT 11.5 (9.0-12.0) sec APTT 24.8 (22.0-30.0) sec CBC 08/15/18 08/16/18 Range/Units 17:38 06:05 WBC 9.0 9.7 (3.8-10.6) k/uL RBC 2.88 L 2.94 L (3.80-5.40) m/uL Hgb 8.8 L 9.3 L (11.4-16.0) gm/dL Hct 27.7 L 27.9 L (34.0-46.0) % Plt Count 181 D 208 (150-450) k/uL Comprehensive Metabolic Panel 08/15/18 08/16/18 Range/Units 17:38 06:05 Sodium 137 138 (137-145) mmol/L Potassium 4.8 3.7 (3.5-5.1) mmol/L Chloride 102 101 (98-107) mmol/L Carbon Dioxide 24 27 (22-30) mmol/L BUN 31 H 30 H (7-17) mg/dL Creatinine 0.89 0.87 (0.52-1.04) mg/dL Glucose 94 96 (74-99) mg/dL Calcium 9.7 9.9 (8.4-10.2) mg/dL AST 27 24 (14-36) U/L ALT 31 29 (9-52) U/L Alkaline Phosphatase 97 113 (38-126) U/L Total Protein 7.1 7.7 (6.3-8.2) g/dL Albumin 4.0 4.2 (3.5-5.0) g/dL Current Medications Generic Name Dose Route Start Last Admin Trade Name Freq PRN Reason Stop Dose Admin Aspirin 81 mg 08/16/18 09:00 08/16/18 08:42 Aspirin PO 81 mg DAILY JUANJOSE Administration Atorvastatin Calcium 80 mg 08/15/18 21:00 08/15/18 23:26 Lipitor PO 80 mg HS JUANJOSE Administration Bumetanide 1 mg 08/15/18 21:00 08/16/18 00:20 Bumex PO 1 mg BID JUANJOSE Administration Carvedilol 3.125 mg 08/16/18 07:30 08/16/18 07:19 Coreg PO 3.125 mg BID-W/MEALS JUANJOSE Administration Heparin Sodium (Porcine) 0 unit 08/16/18 08:04 Heparin IV PER PROTOCOL PRN Low PTT Protocol Heparin Sodium/Sodium Chloride 250 mls @ 10.052 mls/hr 08/16/18 08:15 08/16/18 08:44 25,000 unit/ Sodium Chloride IV 8 units/kg/hr .Q24H JUANJOSE 10.052 mls/hr Administration Protocol 8 UNITS/KG/HR Lisinopril 2.5 mg 08/16/18 09:00 08/16/18 08:42 Zestril PO 2.5 mg DAILY JUANJOSE Administration Naloxone HCl 0.2 mg 08/15/18 18:51 Narcan IV Q2M PRN Opioid Reversal Nitroglycerin 0.4 mg 08/15/18 18:47 Nitrostat SUBLINGUAL Q5M PRN Chest Pain Nitroglycerin 0.5 inch 08/16/18 08:15 08/16/18 08:41 Nitro-Bid Oint TOPICAL 0.5 inch Q8HR JUANJOSE Administration Intake and Output 08/15/18 08/16/18 08/16/18 22:59 06:59 14:59 Other: Voiding Method Toilet Weight 125.645 kg 08/16/18 06:05 08/16/18 06:05
[2018-08-16] MEDS ORDERED: ALPRAZolam 0.5 MG TAB PO PRN (11:46)
[2018-08-16] MEDS ORDERED: ALPRAZolam 0.25 MG TAB PO PRN (11:46)
[2018-08-16] MEDS ORDERED: SODIUM CHLORIDE 0.9% 1,000 ML in EMPTY BAG 1 BAG IV ONE (11:46)
--- NOTE | 2018-08-16 21:11 | HP ---
HISTORY AND PHYSICAL DATE OF ADMISSION: 08/15/2018 DATE OF SERVICE: 08/16/2018 PRESENTING COMPLAINT: Short of breath. HISTORY OF PRESENTING COMPLAINT: This is a pleasant 67-year-old patient of Visiting Physician Dr. Saunders. Chronic stable medical conditions include persistent atrial fibrillation, congestive heart failure with diastolic dysfunction, essential hypertension, coronary artery disease with stent, osteoarthritis. Patient was discharged from the hospital over a week ago. At that time she was seen by Dr. Hickey. Patient was offered a cardiac catheterization. She had positive troponins and at that time wanted to go home and talk with her family and then come back. Patient presents again with shortness of breath. No cough. No fever. No chills. Edema is present. She is having orthopnea, feeling tired and rundown. She also talked to her family and is now ready to have a cardiac catheterization. Patient stopped smoking in March of last year. Patient has had a previous stent. REVIEW OF SYSTEMS: CONSTITUTIONAL: Tired. HEENT: None. RESPIRATORY: As above. CARDIOVASCULAR: As above. GASTROINTESTINAL: None. GENITOURINARY: None. MUSCULOSKELETAL: Arthritic pain in many joints. DERMATOLOGICAL: None. HEMATOLOGICAL: None. LYMPHATICS: None. PSYCHIATRY: None. NEUROLOGICAL: None. PAST MEDICAL HISTORY: 1. Atrial fibrillation. 2. Chronic venous insufficiency. 3. Congestive heart failure. 4. Diastolic dysfunction. 5. Hypertension. 6. Osteoarthritis. 7. Coronary artery disease with stent. PAST SURGICAL HISTORY: 1. Cardiac cath with stent. 2. Hysterectomy. 3. Bilateral knee replacement. 4. Right ankle metal plate. 5. Right arm surgical fracture due to laceration. 6. Right thumb tendon repair. SOCIAL HISTORY: Lives alone. Does have a walker and a wheelchair. The patient smoked for close to 50 years until March of 2018. No alcohol. FAMILY HISTORY: Reviewed; noncontributory to presentation. HOME MEDICATIONS: 1. Nitrostat 0.4 sublingually q.5 p.r.n. 2. Zestril 2.5 p.o. daily. 3. Sensipar 30 mg b.i.d. 4. Vitamin D3 2000 units p.o. daily. 5. Coreg 3.125 mg p.o. b.i.d. with meals. 6. Bumex 1 mg p.o. b.i.d. 7. Lipitor 80 mg at bedtime. 8. Aspirin 81 mg p.o. daily. 9. Eliquis 5 mg p.o. b.i.d. ALLERGIES: NONE. PHYSICAL EXAMINATION: Temperature 98.7, pulse 92, respiration 18, blood pressure 102/77, pulse ox 98% on room air. GENERAL APPEARANCE: Well built; BMI 54.1. Sitting up in a chair, a bit tired- appearing. EYES: Pupils equal. Conjunctivae normal. HEENT: External appearance of nose and ears normal. Oral cavity normal. NECK: JVD unable to assess. Mass not palpable. RESPIRATORY: Effort increased. LUNGS: Diminished breath sounds. CARDIOVASCULAR: Heart sounds muffled. Edema present. ABDOMEN: Distended. Soft. Liver and spleen not palpable. LYMPHATIC: No lymph node palpable in neck or axillae. PSYCHIATRY: Alert and oriented x3. Mood and affect normal. NEUROLOGICAL: Pupils equal. Cranial nerves grossly intact. Power and sensation grossly intact. MUSCULOSKELETAL: Evidence of osteoarthritis, especially in the hands. INVESTIGATIONS: White count 9, hemoglobin 8.8, potassium 4.8. BUN creatinine are normal. Troponin 0.072, 0.068 and 0.071. EKG tracing, personally reviewed by me, shows atrial fibrillation, rate controlled. Chest x-ray film, personally reviewed by me, shows cardiomegaly, venous prominence. ASSESSMENT: 1. Acute on chronic congestive heart failure from diastolic dysfunction, ejection fraction 55% to 60%. 2. Hypertensive heart disease. 3. Persistent atrial fibrillation, chronically on Eliquis. 4. Essential hypertension. 5. Coronary artery disease with prior history of stent. 6. Primary osteoarthritis. 7. Possible unstable angina. PLAN: Home medications are resumed. Patient is put on nitroglycerin paste, IV heparin. Cardiology was consulted. Patient was seen by Dr. Hickey. He will determine about coronary intervention. MMODL / IJN: [id number] /
[2018-08-16] MEDS: ATORVASTATIN 80 MG TAB PO SCH (21:25)
[2018-08-16] MEDS: CINACALCET 30 MG TAB PO SCH (21:26)
[2018-08-17] MEDS: HEPARIN SOD,PORK IN 0.45% NACL 25,000 UNIT in 0.45% NACL 1 250ML.BAG IV SCH ×2 (04:42→14:02)
[2018-08-17 06:39] LABS: Anisocytosis Slight; Basophils % (A) 1 %; Eosinophils # (A) 0.2 k/uL (0-0.7); Eosinophils % (A) 2 %; HCT 27.5 % (34.0-46.0); HGB 8.3 gm/dL (11.4-16.0); Hypochromasia Marked; Lymphocytes # (A) 1.3 k/uL (1.0-4.8); Lymphocytes % (A) 20 %; MCH 29.5 pg (25.0-35.0); MCV 98.2 fL (80.0-100.0); Macrocytosis Slight; Mean Platelet Volume 10.4; Monocytes # (A) 0.3 k/uL (0-1.0); Monocytes % (A) 5 %; Neutrophils # (A) 4.7 k/uL (1.3-7.7); Neutrophils % (A) 70 %; Platelet Count 188 k/uL (150-450); RDW 16.1 % (11.5-15.5); WBC 6.7 k/uL (3.8-10.6)
[2018-08-17] MEDS: NITROGLYCERIN OINT 1 INCH/GM PACKET TOPICAL SCH ×3 (06:46→23:31)
[2018-08-17 06:50] LABS: Anion Gap 9 mmol/L; Blood Urea Nitrogen 25 mg/dL (7-17); Calcium 9.9 mg/dL (8.4-10.2); Carbon Dioxide 21 mmol/L (22-30); Chloride 106 mmol/L (98-107); Glucose 95 mg/dL (74-99); Potassium 4.2 mmol/L (3.5-5.1); Sodium 136 mmol/L (137-145)
[2018-08-17] MEDS: ASPIRIN 81 MG PO SCH (07:00)
[2018-08-17] MEDS: CINACALCET 30 MG TAB PO SCH ×2 (07:00→21:22)
[2018-08-17] MEDS: CARVEDILOL 3.125 MG TAB PO SCH ×2 (08:41→17:18)
[2018-08-17] MEDS ORDERED: fentaNYL (PF) 50 MCG/ML 2 ML AMP ONE (09:07)
[2018-08-17] MEDS ORDERED: LIDOCAINE 1% INJ 10MG/ML (20 ML MDV) ONE (09:07)
[2018-08-17] MEDS ORDERED: VERAPAMIL 2.5 MG/ML 2 ML AMP ONE (09:07)
[2018-08-17] MEDS ORDERED: HEPARIN SODIUM 1,000 UN/ML (10ML VL) ONE (09:07)
[2018-08-17] MEDS ORDERED: IV FLUID CONTINUATION 1,000 ML IV ONE (09:17)
[2018-08-17] MEDS ORDERED: MIDAZOLAM 2 MG/2 ML VIAL IVP ONE (09:20)
[2018-08-17] MEDS ORDERED: fentaNYL (PF) 50 MCG/ML 2 ML AMP IVP ONE (09:20)
[2018-08-17] MEDS ORDERED: LIDOCAINE 1% INJ 10MG/ML (20 ML MDV) SQ ONE (09:21)
[2018-08-17] MEDS ORDERED: VERAPAMIL SYRINGE (5 MG/10 ML) INTRAARTER ONE (09:26)
[2018-08-17] MEDS ORDERED: HEPARIN SODIUM 1,000 UN/ML (10ML VL) IV ONE (09:33)
[2018-08-17] MEDS ORDERED: IOPAMIDOL-250 100ML BTL INTRAARTER ONE (09:40)
[2018-08-17] MEDS ORDERED: IOPAMIDOL-370 100ML BTL INJ ONE (09:57)
[2018-08-17] MEDS ORDERED: RX INFO: IV CONTRAST WAS GIVEN 1 EACH MISC MISCELLANE PRN (10:11)
--- NOTE | 2018-08-17 10:26 | P.CARDCATH ---
Date of Procedure: 08/17/18 Preoperative Diagnosis: Recurrent episodes of non-STEMI, dizziness and syncope and also CHF Postoperative Diagnosis: Critical coronary artery disease with significant left main and also proximal circumflex lesion and total occlusion of the RCA Implants: Left heart catheterization without left ventriculography Description of Procedure: HISTORY: This is a 67-year-old female with history of hypertension, chronic atrial fibrillation and episodes of CHF or dizziness and syncope who was recently in the hospital with shortness of breath and evidence of non-ST elevation ME. Patient refused cardiac catheterization at the time and wanted medical therapy. She is readmitted to the hospital with shortness of breath and chest pains. Her troponin values are mildly elevated but not consistent with acute coronary syndrome. However given her multiple risk factors and ongoing symptoms, patient was advised to have a cardiac catheterization. She is morbidly obese. Her echocardiogram in the past showed preserved LV function. CONSENT:I have discussed the risks, benefits and alternative therapies for the above-mentioned procedure and for both sedation/analgesia as well as necessary blood product administration, if indicated, as they pertain to this patient. The patient has indicated understanding and acceptance of the risks and procedures discussed. PROCEDURE: Patient was brought to the lab in a fasting state. Patient was given some IV sedation. The right wrist is infiltrated with lidocaine and right radial artery was entered using Seldinger technique. A 6-Wallisian catheter was left in place and selective coronary arteriography was performed. Patient tolerated the procedure well. TR band was applied for hemostasis. No immediate complications were noted and patient was transferred to [facility] in a stable conditio n. Patient patient is found to have critical CAD with critical lesion involving left main, proximal circumflex and also total occlusion of the nondominant RCA. Conscious Sedation: Versed 1mg Fentanyl 50 g Duration 37 minutes HEMODYNAMICS: The aortic pressure is about 110/70. Left ventricular end- diastolic pressure is about 25-30. There was no gradient across the aortic valve. SELECTIVE CORONARY ARTERIOGRAPHY: LEFT MAIN: This is calcified. There is about 80% stenosis of the ostium of the left main. There is dampening of the pressures upon engagement of the left main. It divides into left anterior descending and circumflex coronary artery. THE LEFT ANTERIOR DESCENDING CORONARY ARTERY: This is a moderate caliber vessel giving rise to good-sized diagonal branch. The LAD after the diagonal branch has about 70% lesion .The LAD also heavily calcified proximally THE LEFT CIRCUMFLEX AND IS CORONARY ARTERY:. This is a good caliber vessel giving rise to 2 PLV and also PDA branches. There is about 80% stenosis of the proximal portion of the circumflex which is heavily calcified THE RIGHT CORONARY ARTERY: This is totally occluded in the proximal portion and there are collaterals coming from the left of the right coronary artery LEFT VENTRICULOGRAPHY: Not performed. FINAL IMPRESSION: Critical lesions involving the left main and also proximal circumflex coronary artery. Significant lesion involving the mid LAD. Total occlusion of the nondominant right. There are collaterals from the left system to the right. Elevated end-diastolic pressures. Echocardiogram showed normal LV function, Previously. PLAN: Maximum medical therapy. Resume heparin as soon as possible. May transfer patient to intensive care unit. Urgent cardiac surgery consult is requested PROGNOSIS: Guarded
[2018-08-17] MEDS ORDERED: HEPARIN SODIUM,PORCINE 5,000 UNIT/ML 1 ML VIAL IV PRN (10:33)
[2018-08-17] MEDS: SODIUM CHLORIDE 0.9% 1,000 ML IV SCH (10:34)
[2018-08-17] MEDS: LISINOPRIL 2.5 MG TAB PO SCH (10:57)
[2018-08-17] MEDS: BUMETANIDE 1 MG TAB PO SCH ×2 (10:57→21:22)
[2018-08-17 13:39] LABS: Glucose,Whole Blood 109 mg/dL (75-99)
--- NOTE | 2018-08-17 14:12 | P.GSCN ---
History of Present Illness Consult date: 08/17/18 Reason for Consult: Non-ST elevated myocardial infarction, symptomatic multivessel coronary artery disease with left main disease. Requesting physician: Parviz Jackson History of present illness: This is a 67-year-old female patient who is followed by Dr. Roberto Saunders on an outpatient basis. She has a past medical history significant for chronic atrial fibrillation on long-term anticoagulation Eliquis, history of coronary artery disease with stent placement in 2003, hypertension, hyperlipidemia, chronic levin tolic congestive heart failure with an ejection fraction of 50-55%, history of nicotine dependence quit smoking in March 2018, history of chronic peripheral venous insufficiency with chronic skin changes over her bilateral lower extremities, osteoarthritis, and morbid obesity with a BMI of 53.6 kg/m. The patient had a recent admission to the hospital on 08/03/2018 after she presented with episodes of lightheadedness, progressive shortness of breath and generalized weakness. During that admission she did have positive troponins as high as 0.937. A 2-D echocardiogram was completed which showed an overall left ventricular systolic function to be low normal with an ejection fraction between 50 and 55%, mild mitral valve regurgitation and mild tricuspid valve regurgitation. During her stay on 08/04/2017 she apparently refused a heart catheterization and opted for medical therapy and was subsequently discharged home to follow up on an outpatient basis. She presented to the emergency department on 08/15/2017 with complaints of progressive dyspnea, an increase in her lower extremity swelling. She reports that she had a follow-up appointment on 08/15/[address] Jackson [facility] but due to her shortness of breath felt it would be better to present to the emergency department for further evaluation. She denies any complaints of chest pain, dizziness, syncope, nausea, vomiting, fever or chills. In the emergency department a 12-lead EKG was completed which showed atrial fibrillation with a heart rate of 70 bpm. Her initial lab results showed a WBC count of 9.0, Hgb 8.8, platelet count of 181, BUN 31, creatinine 0.89, and troponins as high as [address] Jackson was consulted from [facility] and recommended the patient undergo a cardiac catheterization. The cardiac catheterization results demonstrated an 80% stenosis to her left main coronary artery, a 70% stenosis to her diagonal coronary artery, and 80% stenosis to her proximal circumflex coronary artery, a totally occluded right coronary artery with collaterals from the left system. Due to the patient's presenting symptoms, elevated troponins and cardiac catheterization results a consult was placed to Dr. Sukumar Torres from cardiothoracic surgery for further surgical evaluation and recommendations on myocardial revascularization surgery. Review of Systems A 14 point review of systems was completed and was negative except as mentioned in the HPI. Past Medical History Past Medical History: Atrial Fibrillation, Chest Pain / Angina, Heart Failure, Hyperlipidemia, Hypertension, Myocardial Infarction (non Q-wave), Osteoarthritis (OA), Vascular Disorder Additional Past Medical History / Comment(s): UTERINE CANCER. LT CATARACT, morbid obesity. History of Any Multi-Drug Resistant Organisms: None Reported Past Surgical History: Hysterectomy, Orthopedic Surgery Additional Past Surgical History / Comment(s): UZMA KNEE REPLACMENTS, RT ANKLE- METAL PLATE, RT ARM SX REPAIR D/T LACERATION. RT THUMB TENDON REPAIR," LT FOOT GREAT TOE BONE REMOVED". Stent x 2 (2003) Past Anesthesia/Blood Transfusion Reactions: Blood Transfusion Reaction Additional Past Anesthesia/Blood Transfusion Reaction / Comm: PAST BLOOD [id number] Date of Last Stent Placement:: 2003 Past Psychological History: No Psychological Hx Reported Additional Psychological History / Comment(s): PT LIVES ALONE IN [place].NO STEPS TO CLIMB. NO PETS. 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 Smoking Status: Former smoker (Quit smoking in March 2018.) Past Alcohol Use History: None Reported Additional Past Alcohol Use History / Comment(s): STARTED SMOKING AT AGE 14 Past Drug Use History: None Reported (Quit drinking 15 years ago.) - Past Family History Mother Family Medical History: No Reported History Father History Unknown: Yes Medications and Allergies Home Medications Medication Instructions Recorded Confirmed Type Apixaban [Eliquis] 5 mg PO BID 10/27/17 08/15/18 History Cinacalcet HCl [Sensipar] 30 mg PO BID 10/27/17 08/15/18 History Aspirin [Adult Low Dose Aspirin EC] 81 mg PO DAILY #30 tablet. 08/06/18 08/15/18 Rx Atorvastatin [Lipitor] 80 mg PO HS #30 tab 08/06/18 08/15/18 Rx Carvedilol [Coreg] 3.125 mg PO BID-W/MEALS #60 tab 08/06/18 08/15/18 Rx Lisinopril [Zestril] 2.5 mg PO DAILY tab 08/06/18 08/15/18 Rx Nitroglycerin Sl Tabs [Nitrostat] 0.4 mg SUBLINGUAL Q5M PRN #25 tab 08/06/18 08/15/18 Rx Bumetanide 1 mg PO BID 08/15/18 08/15/18 History Cholecalciferol (Vitamin D3) 2,000 unit PO DAILY 08/15/18 08/15/18 History [Vitamin D3] Allergies Allergy/AdvReac Type Severity Reaction Status Date / Time No Known Allergies Allergy Verified 08/15/18 17:16 Surgical - Exam Vital Signs Temp Pulse Resp BP Pulse Ox 98 F 78 18 94/46 100 08/15/18 15:09 08/15/18 15:09 08/15/18 15:09 08/15/18 15:09 08/15/18 15:09 - General Morbidly obese well developed, well nourished, no distress, no pain - Eyes PERRL, normal ocular movement - ENT Edentulous normal pinna, normal nares, normal mucosa, no hearing loss, no congestion - Neck Neck is supple, no lymphadenopathy. 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 Respirations are symmetrical and nonlabored. No wheezing, no rhonchi. Oxygen saturation is 95% room air. - Cardiovascular Irregular rhythm consistent with atrial fibrillation with controlled rate. S1 and S2 present, negative for S3, gallop or murmur. +2 edema to her bilateral lower extremities. - Abdomen Abdomen is soft, nontender and nondistended. Active bowel sounds to all 4 abdo judith quadrants. Obese. No guarding or rigidity. No organomegaly. - Genitourinary Deferred - Rectum Deferred - Integumentary Chronic skin changes to her bilateral lower extremities with some scattered erythema. no rash - Neurologic normal coordination, normal sensation - Musculoskeletal Moving all 4 extremities, bed rest at this time status post heart cath. - Psychiatric oriented to time, oriented to person, oriented to place, speech is normal, memory intact Results - Labs 08/17/18 05:43 08/17/18 05:43 Abnormal Lab Results - Last 24 Hours (Table) 08/17/18 08/17/18 08/17/18 Range/Units 05:43 05:43 11:07 RBC 2.80 L (3.80-5.40) m/uL Hgb 8.3 L (11.4-16.0) gm/dL Hct 27.5 L (34.0-46.0) % MCHC 30.0 L (31.0-37.0) g/dL RDW 16.1 H (11.5-15.5) % APTT 55.6 H (22.0-30.0) sec Sodium 136 L (137-145) mmol/L Carbon Dioxide 21 L (22-30) mmol/L BUN 25 H (7-17) mg/dL Diabetes panel 08/17/18 Range/Units 05:43 Sodium 136 L (137-145) mmol/L Potassium 4.2 (3.5-5.1) mmol/L Chloride 106 (98-107) mmol/L Carbon Dioxide 21 L (22-30) mmol/L BUN 25 H (7-17) mg/dL Creatinine 0.74 (0.52-1.04) mg/dL Glucose 95 (74-99) mg/dL Calcium 9.9 (8.4-10.2) mg/dL Calcium panel 08/17/18 Range/Units 05:43 Calcium 9.9 (8.4-10.2) mg/dL Pituitary panel 08/17/18 Range/Units 05:43 Sodium 136 L (137-145) mmol/L Potassium 4.2 (3.5-5.1) mmol/L Chloride 106 (98-107) mmol/L Carbon Dioxide 21 L (22-30) mmol/L BUN 25 H (7-17) mg/dL Creatinine 0.74 (0.52-1.04) mg/dL Glucose 95 (74-99) mg/dL Calcium 9.9 (8.4-10.2) mg/dL Adrenal panel 08/17/18 Range/Units 05:43 Sodium 136 L (137-145) mmol/L Potassium 4.2 (3.5-5.1) mmol/L Chloride 106 (98-107) mmol/L Carbon Dioxide 21 L (22-30) mmol/L BUN 25 H (7-17) mg/dL Creatinine 0.74 (0.52-1.04) mg/dL Glucose 95 (74-99) mg/dL Calcium 9.9 (8.4-10.2) mg/dL - Imaging Chest x-ray: report reviewed, image reviewed Assessment and Plan Assessment: 1. Non-ST elevated myocardial infarction this admission with elevated tropon ins. 2. Symptomatic multivessel coronary artery disease with left main disease. 3. Acute on chronic diastolic dysfunction with an ejection fraction of 50-55%. 4. Chronic atrial fibrillation. 5. History of hypertension. 6. Hyperlipidemia. 7. Morbid obesity with a current BMI of 53.6 kg/m. 8. Chronic peripheral venous insufficiency with chronic skin changes over her bilateral lower extremities. 9. Osteoarthritis. 10. History of chronic nicotine abuse, quit smoking in March 2018. Plan: The patient was seen and examined on the 3 S. cardiac stepdown unit. Her chart and diagnostics were reviewed including her cardiac catheterization films and 2- D echocardiogram report. She was seen by Dr. Sukumar Torres from cardiothoracic surgery who reviewed her cardiac catheterization films and discussed the findings with Dr. Jackson from [facility]. Preoperative teaching and preoperative workup has been initiated. Once her preoperative testing has been completed a STS risk score will be calculated and discussed with the patient. A 5 minute walk test will be completed once the patient is off bedrest. The importance of continued smoking cessation has been discussed with the patient. Raine Chang. Current recommendations are to optimize the patient medically, continue aspirin, statin, RASHAAD inhibitor, and beta louann. She will also be started on a heparin drip per protocol due to her non-STEMI and atrial fibrillation. Once all her preoperative testing has been collected, risks and benefits of my cardiovascular disease and surgery will be discussed with the patient and she will be scheduled for myocardial revascularization surgery. Thank you Dr. Jackson for this consult and we will look forward to working with in the care of your patient. Time with Patient: Greater than 30
[2018-08-17 14:40] LABS: INR 1.2 (<1.2); Prothrombin Time 12.1 sec (9.0-12.0)
--- NOTE | 2018-08-17 15:26 | P.CNPUL ---
History of Present Illness Consult date: 08/17/18 Reason for consult: dyspnea, chest pain History of present illness: 67-year-old female patient with known history of chronic atrial fibrillation, coronary artery disease with previous coronary intervention and stenting back in 2003, hypertension and hyperlipidemia and CHF with diastolic heart failure and an ejection fraction of 50%. The patient is a chronic ex-smoker and she has quit smoking in March 2018 and she was peripheral artery disease and chronic osteoarthritis and she is obese with a BMI of 53.6. The patient was recently admitted to the hospital on 08/03/2018 for symptoms of worsening shortness of breath and lightheadedness. During the admission the patient abnormal troponins. The patient back then diffuse cardiac catheterization and she went home. She came back to the emergency department on 08/15/2018 with progressive dyspnea and lower extremity swelling. At that time she was seen by cardiology. EKG showed atrial fibrillation controlled rate. The patient had a normal kidney function. The patient underwent a cardiac catheterization and showed 80% stenosis in the left main, 70% stenosis of diagonal artery, 80% stenosis of the proximal circumflex artery, totally occluded RCA with collaterals from the left system. The patient is currently in the intensive care unit. She is on IV heparin. The patient will be seen by cardiothoracic surgery team for a surgical evaluation and recommendations for revascularization surgery. Her chest x-ray showing some limited scarring in segment V changes in lung bases bilaterally. There is also some mild cardiomegaly. The patient is currently on Bumex 1 mg twice a day. The patient is also on aspirin, IV heparin, lisinopril 2.5 mg by mouth daily Coreg 3.125 mg by mouth twice a day. Past Medical History Past Medical History: Atrial Fibrillation, Coronary Artery Disease (CAD), Chest Pain / Angina, Hyperlipidemia, Hypertension, Myocardial Infarction (non Q-wave), Osteoarthritis (OA), Vascular Disorder Additional Past Medical History / Comment(s): UTERINE CANCER. LT CATARACT, morbid obesity. History of Any Multi-Drug Resistant Organisms: None Reported Past Surgical History: Hysterectomy, Orthopedic Surgery Additional Past Surgical History / Comment(s): UZMA KNEE REPLACMENTS, RT ANKLE- METAL PLATE, RT ARM SX REPAIR D/T LACERATION. RT THUMB TENDON REPAIR," LT FOOT GREAT TOE BONE REMOVED". Stent x 2 (2003) Past Anesthesia/Blood Transfusion Reactions: Blood Transfusion Reaction Additional Past Anesthesia/Blood Transfusion Reaction / Comment(s): PAST BLOOD [id number] Date of Last Stent Placement:: 2003 Past Psychological History: No Psychological Hx Reported Additional Psychological History / Comment(s): PT LIVES ALONE IN [place].NO STEPS TO CLIMB. NO PETS. 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 Smoking Status: Former smoker (Quit smoking in March 2018.) Past Alcohol Use History: None Reported Additional Past Alcohol Use History / Comment(s): STARTED SMOKING AT AGE 14 Past Drug Use History: None Reported (Quit drinking 15 years ago.) - Past Family History Mother Family Medical History: No Reported History Father History Unknown: Yes Medications and Allergies Home Medications Medication Instructions Recorded Confirmed Type Apixaban [Eliquis] 5 mg PO BID 10/27/17 08/15/18 History Cinacalcet HCl [Sensipar] 30 mg PO BID 10/27/17 08/15/18 History Aspirin [Adult Low Dose Aspirin EC] 81 mg PO DAILY #30 tablet.dr 08/06/18 08/15/18 Rx Atorvastatin [Lipitor] 80 mg PO HS #30 tab 08/06/18 08/15/18 Rx Carvedilol [Coreg] 3.125 mg PO BID-W/MEALS #60 tab 08/06/18 08/15/18 Rx Lisinopril [Zestril] 2.5 mg PO DAILY tab 08/06/18 08/15/18 Rx Nitroglycerin Sl Tabs [Nitrostat] 0.4 mg SUBLINGUAL Q5M PRN #25 tab 08/06/18 08/15/18 Rx Bumetanide 1 mg PO BID 08/15/18 08/15/18 History Cholecalciferol (Vitamin D3) 2,000 unit PO DAILY 08/15/18 08/15/18 History [Vitamin D3] Allergies Allergy/AdvReac Type Severity Reaction Status Date / Time No Known Allergies Allergy Verified 08/15/18 17:16 Physical Exam Vitals: Vital Signs Temp Pulse Pulse Resp BP BP BP 08/17/18 15:00 79 11 L 123/55 08/17/18 14:30 88 8 L 141/77 08/17/18 14:00 84 6 L 116/51 08/17/18 13:30 97.7 F 90 27 H 133/79 08/17/18 12:32 72 18 115/51 08/17/18 11:56 71 18 135/65 08/17/18 11:26 68 18 114/54 08/17/18 10:56 67 18 114/56 08/17/18 10:31 114/59 08/17/18 10:26 62 18 08/17/18 08:00 97.7 F 68 18 111/43 08/17/18 06:41 97.8 F 79 18 91/57 08/17/18 04:00 98 F 75 18 99/54 08/16/18 23:43 76 19 08/16/18 23:38 98.3 F 76 19 92/57 08/16/18 20:00 98.3 F 75 20 95/60 08/16/18 16:41 98.1 F 70 20 102/61 08/16/18 15:48 98.1 F 70 20 102/61 Pulse Ox 08/17/18 15:00 96 08/17/18 14:30 96 08/17/18 14:00 94 L 08/17/18 13:30 96 08/17/18 12:32 95 08/17/18 11:56 96 08/17/18 11:26 95 08/17/18 10:56 96 08/17/18 10:31 08/17/18 10:26 100 08/17/18 08:00 99 08/17/18 06:41 98 08/17/18 04:00 97 08/16/18 23:43 08/16/18 23:38 97 08/16/18 20:00 98 08/16/18 16:41 100 08/16/18 15:48 100 Intake and Output 08/17/18 08/17/18 08/17/18 06:59 14:59 22:59 Intake Total 1589.062 250 290 Output Total 100 500 Balance 1589.062 150 -210 Intake: IV 250 50 Sodium Chloride 0.9% 1, 50 50 000 ml @ 50 mls/hr IV . Q20H [facility] Rx#:[id number] Intake, IV Titration 1589.062 Amount Heparin Sod,Pork in 0.45% 214.062 NaCl 25,000 unit In 0.45 % NaCl 1 250ml.bag @ 8 UNITS/KG/HR 10.052 mls/hr IV .Q24H [facility] Rx#: [id number] Sodium Chloride 0.9% 1, 1375 000 ml In Empty Bag 1 bag @ 1 ML/KG/HR 125.645 mls /hr IV .[id number] [facility] Rx#: [id number] Oral 240 Output: Urine 100 500 Other: Voiding Method Toilet Toilet # Voids 2 1 Weight 124.6 kg - General Morbidly obese well developed, well nourished, no distress, no pain - Eyes PERRL, normal ocular movement - ENT Edentulous normal pinna, normal nares, normal mucosa, no hearing loss, no congestion - Neck Neck is supple, no lymphadenopathy. no masses, trachea midline, no venous distension carotid bruit: bilateral - Respiratory Lungs sounds essentially clear throughout, bungy jump master bilateral bases. Respirations are symmetrical and nonlabored. No wheezing, no rhonchi. Oxygen saturation is 95% room air. - Cardiovascular Irregular rhythm consistent with atrial fibrillation with controlled rate. S1 and S2 present, negative for S3, gallop or murmur. +2 edema to her bilateral lower extremities. - Abdomen Abdomen is soft, nontender and nondistended. Active bowel sounds to all 4 abdominal quadrants. Obese. No guarding or rigidity. No organomegaly. - Genitourinary Deferred - Rectum Deferred - Integumentary Chronic skin changes to her bilateral lower extremities with some scattered erythema. no rash - Neurologic normal coordination, normal sensation - Musculoskeletal Moving all 4 extremities, bed rest at this time status post heart cath. - Psychiatric oriented to time, oriented to person, oriented to place, speech is normal, m leigh intact Results - Laboratory Findings CBC and BMP: 08/17/18 05:43 08/17/18 05:43 PT/INR, D-dimer PT 12.1 sec (9.0-12.0) H 08/17/18 11:07 INR 1.2 (<1.2) H 08/17/18 11:07 Abnormal lab findings: Abnormal Labs 08/15/18 08/15/18 08/15/18 17:38 17:38 17:38 RBC 2.88 L Hgb 8.8 L Hct 27.7 L MCHC RDW 16.5 H PT INR APTT Sodium Carbon Dioxide BUN 31 H POC Glucose (mg/dL) Troponin I 0.072 H* 08/15/18 08/16/18 08/16/18 23:44 06:05 06:05 RBC 2.94 L Hgb 9.3 L Hct 27.9 L MCHC RDW 17.2 H PT INR APTT Sodium Carbon Dioxide BUN 30 H POC Glucose (mg/dL) Troponin I 0.068 H* 08/16/18 08/17/18 08/17/18 06:05 05:43 05:43 RBC 2.80 L Hgb 8.3 L Hct 27.5 L MCHC 30.0 L RDW 16.1 H PT INR APTT Sodium 136 L Carbon Dioxide 21 L BUN 25 H POC Glucose (mg/dL) Troponin I 0.071 H* 08/17/18 08/17/18 08/17/18 11:07 11:07 13:25 RBC Hgb Hct MCHC RDW PT 12.1 H INR 1.2 H APTT 55.6 H Sodium Carbon Dioxide BUN POC Glucose (mg/dL) 109 H Troponin I - Diagnostic Findings Chest x-ray: image reviewed Assessment and Plan Plan: Assessment 1 multivessel coronary artery disease, the patient is status post non-ST segment elevation myocardial infarction. Cardiac catheterization was done and the patient is being considered for coronary artery bypass surgery. The patient is currently in the intensive care unit on aspirin, IV heparin, Coreg and lisinopril. O ejection fraction is within normal limits with an EF around 50- 55% 2 CHF with diastolic heart failure 3 chronic atrial fibrillation 4 hypertension 5 hyperlipidemia 6 obesity with a BMI 53.6 7 peripheral vascular disease 8 osteoarthritis 9 history of smoking and the patient quit smoking back in March 2018 10 chronic anemia, normocytic 11 obesity with a BMI 53.6 Plan This patient is doing well from the pulmonary standpoint. The patient has extensive coronary artery disease. LV function is preserved. The patient is being evaluated for coronary artery bypass surgery. We'll obtain a bedside spirometry. Chest x-ray was reviewed and there is no significant abnormalities. There is concern for underlying obstructive sleep apnea based on her obesity and anatomic features. Would offer the patient incentive spirometer. We will follow her case here in the ICU and be involved in the postoperative pulmonary care following her bypass surgery.
[2018-08-17 15:30] LABS: Appearance,Urine Clear (Clear); Bilirubin,Urine Negative (Negative); Blood,Urine Negative (Negative); Color,Urine Colorless; Glucose,Urine (UA) Negative (Negative); Ketones,Urine Negative (Negative); Leukocyte Esterase,Urine Negative (Negative); Nitrite,Urine Negative (Negative); Protein,Urine Negative (Negative); Urobilinogen,Urine <2.0 mg/dL (<2.0)
--- NOTE | 2018-08-17 17:31 | US ---
EXAMINATION TYPE: US carotid duplex BILAT DATE OF EXAM: 08/17/2018 COMPARISON: NONE CLINICAL HISTORY: Pre-Op Cardiac Surgery. pre surgical EXAM MEASUREMENTS: RIGHT: Peak Systolic Velocity (PSV) cm/sec ----- Right CCA: 68.6 ----- Right ICA: not detected ----- Right ECA: 147.5 ICA/CCA ratio: N/A RIGHT: End Diastole cm/sec ----- Right CCA: 9.2 ----- Right ICA: not detected ----- Right ECA: 27.6 LEFT: Peak Systolic Velocity (PSV) cm/sec ----- Left CCA: 103.0 ----- Left ICA: 280.0 ----- Left ECA: 184.9 ICA/CCA ratio: 2.7* LEFT: End Diastole cm/sec ----- Left CCA: 66.6 ----- Left ICA: 85.0 ----- Left ECA: 15.3 VERTEBRALS (direction of flow): Right Vertebral: Antegrade Left Vertebral: Antegrade Rhythm: Arrhythmia Obese ICU patient with extensive heterogeneous plaque seen bilaterally, appears to have total occlusi on of Right ICA, with significant stenosis noted throughout Left ICA, but proximal portion had highes t velocities. Elevated ECA velocities seen. IMPRESSION: Complete occlusion of the right internal carotid artery. Significant plaque formation in the left internal carotid artery with velocities that suggest more th an 70% stenosis. Bilateral elevated velocities in the external carotid arteries consistent with 50-70 % stenosis. Criteria for Assigning % of Stenosis / Diameter reduction (Estimation based on the indirect measurements of the internal carotid artery velocities (ICA PSV). 1. Normal (no stenosis)=ICA PSV < 125 cm/s: ratio < 2.0: ICA EDV<40 cm/s. 2. Less than 50% stenosis=ICA PSV < 125 cm/s: ratio < 2.0: ICA EDV<40 cm/s. 3. 50 to 69% stenosis=ICA PSV of 125 to 230 cm/s: ration 2.0 ? 4.0: ICA EDV 40-100 cm/s. 4. Greater than 70% stenosis to near occlusion= ICA PSV > 230 cm/s: ratio > 4.0: ICA EDV > 100 cm/s. 5. Near occlusion= ICA PSV velocities may be low or undetectable: variable ratio and ICA EDV. 6. Total occlusion=unable to detect flow.
[2018-08-17] MEDS: ATORVASTATIN 80 MG TAB PO SCH (21:22)
[2018-08-17 22:44] LABS: Hepatitis A Antibody IgM Non-Reactive (Non-Reactive); Hepatitis B Core IgM Non-Reactive (Non-Reactive)
[2018-08-17 23:33] LABS: Hemoglobin A1C 5.4 % (4.0-6.0)
[2018-08-18] MEDS: ACETAMINOPHEN TAB 325 MG TAB PO PRN (03:42)
[2018-08-18 05:22] LABS: Anisocytosis Slight; Basophils % (A) 0 %; Eosinophils # (A) 0.2 k/uL (0-0.7); Eosinophils % (A) 3 %; HCT 23.8 % (34.0-46.0); HGB 7.4 gm/dL (11.4-16.0); Hypochromasia Marked; Lymphocytes # (A) 1.2 k/uL (1.0-4.8); Lymphocytes % (A) 18 %; MCH 29.7 pg (25.0-35.0); MCHC 30.9 g/dL (31.0-37.0); MCV 96.2 fL (80.0-100.0); Macrocytosis Slight; Mean Platelet Volume 9.5; Monocytes # (A) 0.3 k/uL (0-1.0); Monocytes % (A) 4 %; Neutrophils # (A) 4.8 k/uL (1.3-7.7); Neutrophils % (A) 74 %; Platelet Count 161 k/uL (150-450); RBC 2.48 m/uL (3.80-5.40); RDW 16.3 % (11.5-15.5); WBC 6.5 k/uL (3.8-10.6)
[2018-08-18 05:31] LABS: Albumin 3.3 g/dL (3.5-5.0); Calcium 9.1 mg/dL (8.4-10.2); Magnesium 1.9 mg/dL (1.6-2.3); Phosphorus 2.8 mg/dL (2.5-4.5); Potassium 4.1 mmol/L (3.5-5.1); Total Bilirubin 0.6 mg/dL (0.2-1.3); Total Protein 6.2 g/dL (6.3-8.2)
[2018-08-18] MEDS ORDERED: Magnesium Replacement Protocol 1 EACH MISC MISCELLANE PRN (05:43)
[2018-08-18] MEDS: MAGNESIUM SULFATE-D5W PMX 1 GM in DEXTROSE/WATER 1 100ML.BAG IVPB SCH ×2 (05:58→08:37)
[2018-08-18] MEDS: CARVEDILOL 3.125 MG TAB PO SCH ×2 (07:10→17:18)
--- NOTE | 2018-08-18 08:21 | PN ---
PROGRESS NOTE Ekaterina is a 67-year-old lady who is admitted to hospital with congestive heart failure and had elevated troponins due to which she underwent cardiac catheterization by my associate, Dr. Jackson that found significant left main proximal circ lesions and a chronic occlusion of the nondominant right. The patient was evaluated by Dr. Torres the cardiothoracic surgeons who is currently in the process of scheduling her for surgery. Since yesterday, patient has remained stable. Did not have any episodes of chest pain and her shortness of breath has improved. CURRENT MEDICATIONS: Include aspirin, Lipitor, Bumex 1 mg b.i.d., Coreg 3.125 b.i.d., intravenous heparin, Zestril and nitro paste. EXAM: Comfortable at rest. Vital signs are stable. Chest exam reveals good air entry bilaterally. Heart exam reveals first and second heart sounds, irregular rhythm. No gallop. Exam of extremities did not reveal any edema. Peripheral pulses are palpable. LAB: Showed the hemoglobin is 9.3, platelet count is 208, potassium is 3.7 creatinine is 0.8. Tropes are mildly elevated. ASSESSMENT: Acute non ST-segment elevation myocardial infarction status post catheterization with significant left main and three-vessel coronary artery disease. PLAN: The patient will undergo bypass surgery on this admission. The patient had an echo done 2 weeks ago that showed normal LV systolic function. MMODL / IJN: [id number] /
[2018-08-18] MEDS: ASPIRIN 81 MG PO SCH (08:38)
[2018-08-18] MEDS: LISINOPRIL 2.5 MG TAB PO SCH (08:38)
[2018-08-18] MEDS: CINACALCET 30 MG TAB PO SCH ×2 (08:38→20:13)
[2018-08-18] MEDS: NITROGLYCERIN OINT 1 INCH/GM PACKET TOPICAL SCH ×3 (08:38→23:05)
[2018-08-18] MEDS: BUMETANIDE 1 MG TAB PO SCH ×2 (08:38→17:18)
--- NOTE | 2018-08-18 10:53 | ECHOF ---
Referral Reason:assess LV function MEASUREMENTS -------- HEIGHT: 154.9 cm WEIGHT: 126.1 kg BP: IVSd: 1.2 cm (0.6 - 1.1) LVIDd: 4.9 cm (3.9 - 5.3) LVPWd: 1.5 cm (0.6 - 1.1) IVSs: 1.5 cm LVIDs: 4.0 cm LVPWs: 1.4 cm Ao Diam: 2.0 cm (2.0 - 3.7) LA Diam: 4.8 cm (2.7 - 3.8) MV E Chencho: 1.44 m/s MV DecT: 226 ms MV A Chencho: 0.28 m/s MV E/A Ratio: 5.04 RAP: 5.00 mmHg RVSP: 47.38 mmHg FINDINGS -------- Sinus rhythm. Morbid Obesity This was a techncally difficult study with suboptimal views, , Lumason utilized for enhancement of im ages. The left ventricular size is normal. There is mild concentric left ventricular hypertrophy. Overa ll left ventricular systolic function is mild-moderately impaired with, an EF between 40 - 45 %. An terseptal Hypokinesis Inferior Hypokinesis [place] Hypokinesis. Distal Septal Hypokinesis. The right ventricle is normal in size. The left atrial size is normal. The right atrial size is normal. 5.0mg OF Lumason UTLIZED: 2 OR MORE WALL SEGMENTS NOT VISUALIZED. There is mild aortic valve sclerosis. The mitral valve was not well visualized. The tricuspid valve was not well visualized. Mild tricuspid regurgitation present. There is mild pulmonary hypertension. The right ventricular systolic pressure, as measured by Doppler, is 47.38mm Hg. The pulmonic valve was not well visualized. The aortic root size is normal. There is no pericardial effusion. CONCLUSIONS -------- 1. Morbid Obesity 2. This was a techncally difficult study with suboptimal views, , Lumason utilized for enhancement of images. 3. The left ventricular size is normal. 4. There is mild concentric left ventricular hypertrophy. 5. Overall left ventricular systolic function is mild-moderately impaired with, an EF between 40 - 45 %. 6. Anterseptal Hypokinesis 7. Inferior Hypokinesis 8. [place] Hypokinesis. 9. Distal Septal Hypokinesis. 10. The right ventricle is normal in size. 11. The left atrial size is normal. 12. The right atrial size is normal. 13. 5.0mg OF Lumason UTLIZED: 2 OR MORE WALL SEGMENTS NOT VISUALIZED. 14. There is mild aortic valve sclerosis. 15. The mitral valve was not well visualized. 16. The tricuspid valve was not well visualized. 17. Mild tricuspid regurgitation present. 18. There is mild pulmonary hypertension. 19. The right ventricular systolic pressure, as measured by Doppler, is 47.38mmHg. 20. The pulmonic valve was not well visualized. 21. The aortic root size is normal. 22. There is no pericardial effusion. CLINICAL LAW PROFESSOR: Veronica Voss RDCS
--- NOTE | 2018-08-18 11:01 | P.PN ---
Subjective Progress Note Date: 08/18/18 Principal diagnosis: Non-ST elevated myocardial infarction, symptomatic multivessel coronary artery disease, acute on chronic diastolic dysfunction congestive heart failure, chroni c atrial fibrillation, history of coronary artery disease with previous stent placement in 2003, hypertension, hyperlipidemia, morbid obesity with an admission BMI of 53.6 kg/m, peripheral vascular disease, bilateral carotid artery stenosis with a totally occluded right ICA, history of chronic nicotine abuse quit smoking in March 2018, chronic normocytic anemia, and osteoarthritis. This is 67-year-old female patient who presented to the emergency department on 08/15/2018 with complaints of progressive shortness of breath and increasing leg swelling. On presentation to the emergency department she did have positive troponins as high as 0.072. She was seen by Dr. Jackson from cardiology associates and subsequently underwent a heart catheterization which demonstrated an 80% stenosis to her left main coronary artery, a 70% stenosis to her diagonal coronary artery, an 80% stenosis to her proximal circumflex coronary artery and a totally occluded right coronary artery with collaterals from the left system. A 2-D echocardiogram was completed yesterday although the results are un available at this time. The patient did have a bedside FEV1 completed this morning which showed 71% of predicted value. A carotid duplex study was also completed as part of her preoperative workup which demonstrated a complete occlusion of her right internal carotid artery and significant plaque formation in the left internal carotid artery with velocities that suggest more than 70% stenosis. This morning she is sitting up to the bedside chair. She is in no acute distress. She reports that she feels much improved today and denies any complaints of pain or shortness of breath. Currently she a heparin drip infusing per protocol due to her atrial fibrillation. Bedside vehicle monitor technician shows atrial fibrillation heart rate 73. Preoperative teaching has been reinforced and her preoperative workup is still in progress. Objective - Vital Signs Vital signs: Vital Signs Temp 97.9 F 08/18/18 04:00 Pulse 64 08/18/18 09:00 Resp 08/18/18 09:00 BP 112/52 08/18/18 09:00 Pulse Ox 98 08/18/18 09:00 Intake & Output 08/17/18 08/18/18 08/18/18 18:59 06:59 18:59 Intake Total 930 1920 150 Output Total 600 1600 375 Balance 330 320 -225 Weight 127.5 kg Intake: IV 450 600 150 Sodium Chloride 0.9% 1, 250 600 150 000 ml @ 50 mls/hr IV . Q20H [facility] Rx#:[id number] Oral 480 1320 Output: Urine 600 1600 375 Other: Voiding Method Toilet Toilet Toilet # Voids 1 1 1 # Bowel Movements 1 - Constitutional General appearance: Present: cooperative, morbidly obese, no acute distress - Respiratory Details: Lung sounds are essentially clear throughout, diminished bilateral bases. Respirations are symmetrical and nonlabored. Oxygen saturation are 98% on room air. Bedside FEV1 was completed which showed 47% of predicted value. - Cardiovascular Details: Irregular rhythm consistent with atrial fibrillation. Controlled rate. S1 and S2 present. Negative for S3, gallop or murmur. +2 edema to her bilateral lower extremities. Knee-high sequential compression devices in place to her bilateral lower extremities. - Gastrointestinal Gastrointestinal Comment(s): Abdomen soft, nontender and nondistended. Obese. Active bowel sounds to all 4 abdominal quadrants. No organomegaly. No guarding or rigidity. Tolerating oral intake. - Genitourinary Genitourinary Comment(s): Voiding clear yellow urine, 550 mm output in the last 8 hours. - Neurologic Neurologic: Present: CNII-XII intact - Musculoskeletal Musculoskeletal: Present: generalized weakness, strength equal bilaterally - Psychiatric Psychiatric: Present: A&O x's 3, appropriate affect, intact judgment & insight - Allied health notes Allied health notes reviewed: nursing - Labs CBC & Chem 7: 08/18/18 05:04 08/18/18 05:04 Labs: Abnormal Lab Results - Last 24 Hours (Table) 08/17/18 08/17/18 08/17/18 Range/Units 11:07 11:07 11:07 RBC (3.80-5.40) m/uL Hgb (11.4-16.0) gm/dL Hct (34.0-46.0) % MCHC (31.0-37.0) g/dL RDW (11.5-15.5) % PT 12.1 H (9.0-12.0) sec INR 1.2 H (<1.2) APTT 55.6 H (22.0-30.0) sec BUN (7-17) mg/dL Glucose (74-99) mg/dL POC Glucose (mg/dL) (75-99) mg/dL Total Protein (6.3-8.2) g/dL Albumin (3.5-5.0) g/dL HDL Cholesterol 30 L (40-60) mg/dL 08/17/18 08/17/18 08/18/18 Range/Units 13:25 20:31 05:04 RBC 2.48 L (3.80-5.40) m/uL Hgb 7.4 L (11.4-16.0) gm/dL Hct 23.8 L (34.0-46.0) % MCHC 30.9 L (31.0-37.0) g/dL RDW 16.3 H (11.5-15.5) % PT (9.0-12.0) sec INR (<1.2) APTT 52.1 H (22.0-30.0) sec BUN (7-17) mg/dL Glucose (74-99) mg/dL POC Glucose (mg/dL) 109 H (75-99) mg/dL Total Protein (6.3-8.2) g/dL Albumin (3.5-5.0) g/dL HDL Cholesterol (40-60) mg/dL 08/18/18 08/18/18 Range/Units 05:04 05:04 RBC (3.80-5.40) m/uL Hgb (11.4-16.0) gm/dL Hct (34.0-46.0) % MCHC (31.0-37.0) g/dL RDW (11.5-15.5) % PT (9.0-12.0) sec INR (<1.2) APTT 58.9 H (22.0-30.0) sec BUN 21 H (7-17) mg/dL Glucose 101 H (74-99) mg/dL POC Glucose (mg/dL) (75-99) mg/dL Total Protein 6.2 L (6.3-8.2) g/dL Albumin 3.3 L (3.5-5.0) g/dL HDL Cholesterol (40-60) mg/dL Microbiology - Last 24 Hours (Table) 08/17/18 15:09 Urine Culture - Preliminary Urine,Clean Catch - Imaging and Cardiology Carotid duplex study report reviewed, vein mapping results reviewed. Assessment and Plan Assessment: 1. Non-ST elevated myocardial infarction this admission with elevated troponins. 2. Symptomatic multivessel coronary artery disease with left main disease. 3. Acute on chronic diastolic dysfunction with an ejection fraction of 50-55%. 4. Chronic atrial fibrillation. 5. History of hypertension. 6. Hyperlipidemia. 7. Morbid obesity with a current BMI of 53.6 kg/m. 8. Chronic peripheral venous insufficiency with chronic skin changes over her bilateral lower extremities. 9. Osteoarthritis. 10. History of chronic nicotine abuse, quit smoking in March 2018. 11. Bilateral internal carotid artery stenosis. 12. Chronic anemia, normocytic Plan: 1. Continue to maximize medical therapy with aspirin, statin, RASHAAD inhibitor, and beta louann. 2. Continue to reinforce preoperative teaching. 3. Heparin drip and diuretic management per cardiology. 4. Encourage use of his incentive spirometry every hour while awake. 5. Encourage continued smoking cessation, discussed the importance of smoking c essation with the patient. 6. 5 m walk test completed: Time 1: 11.35 seconds Time 2: 10.53 seconds Time 3: 9.23 seconds. 7. Activity as tolerated, ambulate in the hallway with assistance. 8. DVT and GI prophylaxis in place. Continue heparin drip, knee-high sequential compression devices and start Protonix 40 mg by mouth daily. 9. Medical management per primary care service. 10. STS risk score calculated and discussed with the patient by Dr. Sukumar Torres. 11. We will order a CTA of her neck to further assess her carotid artery stenosis. 12. More recommendations to follow based on patient's clinical course.
--- NOTE | 2018-08-18 12:36 | P.PN ---
Subjective Progress Note Date: 08/18/18 67-year-old female patient with known history of chronic atrial fibrillation, coronary artery disease with previous coronary intervention and stenting back in 2003, hypertension and hyperlipidemia and CHF with diastolic heart failure and an ejection fraction of 50%. The patient is a chronic ex-smoker and she has quit smoking in March 2018 and she was peripheral artery disease and chronic osteoarthritis and she is obese with a BMI of 53.6. The patient was recently admitted to the hospital on 08/03/2018 for symptoms of worsening shortness of breath and lightheadedness. During the admission the patient abnormal troponins. The patient back then diffuse cardiac catheterization and she went home. She came back to the emergency department on 08/15/2018 with progressive dyspnea and lower extremity swelling. At that time she was seen by cardiology. EKG showed atrial fibrillation controlled rate. The patient had a normal kidney function. The patient underwent a cardiac catheterization and showed 80% stenosis in the left main, 70% stenosis of diagonal artery, 80% stenosis of the proximal circumflex artery, totally occluded RCA with collaterals from the left system. The patient is currently in the intensive care unit. She is on IV heparin. The patient will be seen by cardiothoracic surgery team for a surgical evaluation and recommendations for revascularization surgery. Her chest x-ray showing some limited scarring in segment V changes in lung bases bilaterally. There is also some mild cardiomegaly. The patient is currently on Bumex 1 mg twice a day. The patient is also on aspirin, IV heparin, lisinopril 2.5 mg by mouth daily Coreg 3.125 mg by mouth twice a day. On today's evaluation of 08/18/2018 the patient is hemodynamically stable, comfortable free of any chest pain and free of any shortness of breath. She is still awaiting cardiac bypass surgery. Based on our calculation, her surgical risk is in the order of 11% mortality. The patient's FEV1 is normal at of 47% of predicted and this is consistent with restrictive lung disease due to obesity. She also has bilateral carotid artery stenosis on the Dopplers and the patient would have a CT angios of the neck. The patient has significant plaquing in the internal carotid artery on the left in the order of 70%. There is also bilateral external carotid artery disease in the order of 50-70%. The patient is currently on IV heparin. She is also on Bumex 1 mg twice a day. No angina. No other complaints otherwise for now. Objective - Vital Signs Vital signs: Vital Signs Temp 97.9 F 08/18/18 04:00 Pulse 52 L 08/18/18 11:28 Resp 16 08/18/18 11:28 BP 110/60 08/18/18 11:28 Pulse Ox 97 08/18/18 11:28 Intake & Output 08/17/18 08/18/18 08/18/18 18:59 06:59 18:59 Intake Total 930 1920 250 Output Total 600 1600 375 Balance 330 320 -125 Weight 127.5 kg Intake: IV 450 600 250 Sodium Chloride 0.9% 1, 250 600 250 000 ml @ 50 mls/hr IV . Q20H [facility] Rx#:[id number] Oral 480 1320 Output: Urine 600 1600 375 Other: Voiding Method Toilet Toilet Toilet # Voids 1 1 1 # Bowel Movements 1 - Exam - General Morbidly obese well developed, well nourished, no distress, no pain - Eyes PERRL, normal ocular movement - ENT Edentulous normal pinna, normal nares, normal mucosa, no hearing loss, no congestion - Neck Neck is supple, no lymphadenopathy. no masses, trachea midline, no venous distension carotid bruit: bilateral - Respiratory Lungs sounds essentially clear throughout, strip catcher bilateral bases. Respirations are symmetrical and nonlabored. No wheezing, no rhonchi. Oxygen saturation is 95% room air. - Cardiovascular Irregular rhythm consistent with atrial fibrillation with controlled rate. S1 and S2 present, negative for S3, gallop or murmur. +2 edema to her bilateral lower extremities. - Abdomen Abdomen is soft, nontender and nondistended. Active bowel sounds to all 4 abdominal quadrants. Obese. No guarding or rigidity. No organomegaly. - Genitourinary Deferred - Rectum Deferred - Integumentary Chronic skin changes to her bilateral lower extremities with some scattered erythema. no rash - Neurologic normal coordination, normal sensation - Musculoskeletal Moving all 4 extremities, bed rest at this time status post heart cath. - Psychiatric oriented to time, oriented to person, oriented to place, speech is normal, memory intact - Labs CBC & Chem 7: 08/18/18 05:04 08/18/18 05:04 Labs: Abnormal Lab Results - Last 24 Hours (Table) 08/17/18 08/17/18 08/17/18 Range/Units 11:07 11:07 13:25 RBC (3.80-5.40) m/uL Hgb (11.4-16.0) gm/dL Hct (34.0-46.0) % MCHC (31.0-37.0) g/dL RDW (11.5-15.5) % PT 12.1 H (9.0-12.0) sec INR 1.2 H (<1.2) APTT (22.0-30.0) sec BUN (7-17) mg/dL Glucose (74-99) mg/dL POC Glucose (mg/dL) 109 H (75-99) mg/dL Total Protein (6.3-8.2) g/dL Albumin (3.5-5.0) g/dL HDL Cholesterol 30 L (40-60) mg/dL 08/17/18 08/18/18 08/18/18 Range/Units 20:31 05:04 05:04 RBC 2.48 L (3.80-5.40) m/uL Hgb 7.4 L (11.4-16.0) gm/dL Hct 23.8 L (34.0-46.0) % MCHC 30.9 L (31.0-37.0) g/dL RDW 16.3 H (11.5-15.5) % PT (9.0-12.0) sec INR (<1.2) APTT 52.1 H (22.0-30.0) sec BUN 21 H (7-17) mg/dL Glucose 101 H (74-99) mg/dL POC Glucose (mg/dL) (75-99) mg/dL Total Protein 6.2 L (6.3-8.2) g/dL Albumin 3.3 L (3.5-5.0) g/dL HDL Cholesterol (40-60) mg/dL 08/18/18 Range/Units 05:04 RBC (3.80-5.40) m/uL Hgb (11.4-16.0) gm/dL Hct (34.0-46.0) % MCHC (31.0-37.0) g/dL RDW (11.5-15.5) % PT (9.0-12.0) sec INR (<1.2) APTT 58.9 H (22.0-30.0) sec BUN (7-17) mg/dL Glucose (74-99) mg/dL POC Glucose (mg/dL) (75-99) mg/dL Total Protein (6.3-8.2) g/dL Albumin (3.5-5.0) g/dL HDL Cholesterol (40-60) mg/dL Microbiology - Last 24 Hours (Table) 08/17/18 23:30 Nasal Screen MRSA/MSSA - Preliminary Nasal Swab 08/17/18 15:09 Urine Culture - Preliminary Urine,Clean Catch Assessment and Plan Plan: Assessment 1 multivessel coronary artery disease, the patient is status post non-ST segment elevation myocardial infarction. Cardiac catheterization was done and the patient is being considered for coronary artery bypass surgery. The patient is currently in the intensive care unit on aspirin, IV heparin, Coreg and lisinopril. EF around 50-55% 2 CHF with diastolic heart failure 3 chronic atrial fibrillation 4 hypertension 5 hyperlipidemia 6 obesity with a BMI 53.6 7 peripheral vascular disease 8 osteoarthritis 9 history of smoking and the patient quit smoking back in March 2018 10 chronic anemia, normocytic 11 obesity with a BMI 53.6 Plan Patient carries a mortality risk of 11% based on calculation. CT angiogram of the neck or be done to further characterize the carotid artery stenosis. The patient has a restrictive pattern on her spirometry with an FEV1 of 47% of predicted. She is obese with a BMI of 54.9. She may have underlying obstructive sleep apnea. She'll be asked to continue the incentive spirometer use. Keep IV heparin for now. Monitor electrolytes. Monitor symptoms. We'll continue to follow and assist in the postoperative care once the patient is eva en to the operating room. Care is high risk of morbidity and morbidity baseline above-mentioned comorbidities.
--- NOTE | 2018-08-18 13:33 | P.PN ---
Subjective Progress Note Date: 08/17/18 Principal diagnosis: Acute on chronic diastolic dysfunction Covering for Dr. Almaraz over the weekend 67-year-old female with a history of coronary artery disease status post lila nting in 2003, atrial fibrillation, hypertension, hyperlipidemia, chronic diastolic heart failure coming in with a chief complaint of chest pain and difficulty in breathing. Patient was diagnosed to have non-ST elevation [place]. Later on patient had a cardiac catheterization done which was showing extensive occlusion of multiple vessels. So eventually the patient has been transferred to the intensive care unit on heparin drip for evaluation by cardiothoracic surgery for CABG. Today the patient is currently in lying in bed appears to be no acute distress. Patient states that she does not have any ongoing chest pain. No difficulty in breathing. She has chronic lower extremity edema that is at baseline. On review of systems- Constitutional- no fevers chills or rigors Cardiac- no chest pain or palpitations Respiratory- difficulty breathing at baseline. No cough. GI- no abdominal pain nausea vomiting or diarrhea Objective - Vital Signs Vital signs: Vital Signs Temp 98 F 08/17/18 16:00 Pulse 61 08/17/18 18:00 Resp 26 H 08/17/18 18:00 BP 136/69 08/17/18 18:00 Pulse Ox 99 08/17/18 18:00 Intake & Output 08/16/18 08/17/18 08/17/18 18:59 06:59 18:59 Intake Total 75.222 2089.062 930 Output Total 600 Balance 75.222 2089.062 330 Weight 125.645 kg 124.6 kg Intake: IV 450 Sodium Chloride 0.9% 1, 250 000 ml @ 50 mls/hr IV . Q20H [facility] Rx#:[id number] Intake, IV Titration 75.222 1589.062 Amount Heparin Sod,Pork in 0.45% 75.222 214.062 NaCl 25,000 unit In 0.45 % NaCl 1 250ml.bag @ 8 UNITS/KG/HR 10.052 mls/hr IV .Q24H [facility] Rx#: [id number] Sodium Chloride 0.9% 1, 1375 000 ml In Empty Bag 1 bag @ 1 ML/KG/HR 125.645 mls /hr IV .Q7H58M [facility] Rx#: [id number] Oral 500 480 Output: Urine 600 Other: Voiding Method Toilet Toilet Toilet # Voids 0 2 1 # Bowel Movements 0 1 - Exam GEN. APPEARANCE: alert, in no apparent distress HEAD EXAM: atraumatic, normocephalic, normal inspection EYE EXAM: normal appearance, PERRL, EOMI. Absent: scleral icterus, conjunctival injection, periorbital swelling ENT EXAM: normal exam, mucous membranes moist RESPIRATORY EXAM: Distant breath sounds heard bilaterally. No wheezes or crackles. CARDIOVASCULAR EXAM: Irregularly irregular GI/ABDOMINAL EXAM: soft, normal bowel sounds. Absent: distended, tenderness, guarding, rebound, rigid. EXTREMITIES EXAM: bilateral pitting edema. BACK EXAM: normal inspection NEUROLOGICAL EXAM: alert, oriented X3, no focal neurological deficits. SKIN EXAM: warm, dry, intact, normal color. Absent: rash - Labs CBC & Chem 7: 08/18/18 05:04 08/18/18 05:04 Labs: Abnormal Lab Results - Last 24 Hours (Table) 08/17/18 08/17/18 08/17/18 Range/Units 05:43 05:43 11:07 RBC 2.80 L (3.80-5.40) m/uL Hgb 8.3 L (11.4-16.0) gm/dL Hct 27.5 L (34.0-46.0) % MCHC 30.0 L (31.0-37.0) g/dL RDW 16.1 H (11.5-15.5) % PT (9.0-12.0) sec INR (<1.2) APTT 55.6 H (22.0-30.0) sec Sodium 136 L (137-145) mmol/L Carbon Dioxide 21 L (22-30) mmol/L BUN 25 H (7-17) mg/dL POC Glucose (mg/dL) (75-99) mg/dL 08/17/18 08/17/18 Range/Units 11:07 13:25 RBC (3.80-5.40) m/uL Hgb (11.4-16.0) gm/dL Hct (34.0-46.0) % MCHC (31.0-37.0) g/dL RDW (11.5-15.5) % PT 12.1 H (9.0-12.0) sec INR 1.2 H (<1.2) APTT (22.0-30.0) sec Sodium (137-145) mmol/L Carbon Dioxide (22-30) mmol/L BUN (7-17) mg/dL POC Glucose (mg/dL) 109 H (75-99) mg/dL Assessment and Plan Assessment: ASSESSMENT Acute on chronic diastolic heart failure Multivessel coronary artery disease Chronic persistent atrial fibrillation Essential hypertension Non-ST elevation GA Primary osteoarthritis Morbid obesity with BMI of 54.9 Nicotine dependence quit smoking in March 2018 Chronic normocytic anemia PLAN: Patient is being scheduled for coronary artery bypass grafting due to extensive multivessel coronary artery disease. CT surgery on board. Patient is is to be continued on heparin drip. Preoperative evaluation in progress. Continue with the current medication regimen. Further recommendations to follow depending on the progress of the patient.
--- NOTE | 2018-08-18 13:35 | P.PN ---
Subjective Progress Note Date: 08/18/18 Principal diagnosis: Acute on chronic diastolic dysfunction Covering for Dr. Almaraz over the weekend 67-year-old female with a history of coronary artery disease status post lila nting in 2003, atrial fibrillation, hypertension, hyperlipidemia, chronic diastolic heart failure coming in with a chief complaint of chest pain and difficulty in breathing. Patient was diagnosed to have non-ST elevation [place]. Later on patient had a cardiac catheterization done which was showing extensive occlusion of multiple vessels. So eventually the patient has been transferred to the intensive care unit on heparin drip for evaluation by cardiothoracic surgery for CABG. Today the patient is currently sitting up in a chair by the bedside. Patient states that she does not have any ongoing chest pain. No difficulty in breathing. She has chronic lower extremity edema that is at baseline. On review of systems- Constitutional- no fevers chills or rigors Cardiac- no chest pain or palpitations Respiratory- difficulty breathing at baseline. No cough. GI- no abdominal pain nausea vomiting or diarrhea Active Medications Acetaminophen (Tylenol Tab) 325 mg PO Q6HR PRN PRN Reason: Fever and/ or Pain Last Admin: 08/18/18 03:42 Dose: 325 mg Documented by: Alprazolam (Xanax) 0.25 mg PO Q6HR PRN PRN Reason: Mild Anxiety Alprazolam (Xanax) 0.5 mg PO Q6HR PRN PRN Reason: Moderate Anxiety Aspirin (Aspirin) 81 mg PO DAILY [facility] Last Admin: 08/18/18 08:38 Dose: 81 mg Documented by: Atorvastatin Calcium (Lipitor) 80 mg PO HS [facility] Last Admin: 08/17/18 21:22 Dose: 80 mg Documented by: Bumetanide (Bumex) 1 mg PO DAILY@0800,1700 [facility] Carvedilol (Coreg) 3.125 mg PO BID-W/MEALS [facility] Last Admin: 08/18/18 07:10 Dose: 3.125 mg Documented by: Cinacalcet (Sensipar) 30 mg PO BID [facility] Last Admin: 08/18/18 08:38 Dose: 30 mg Documented by: Heparin Sodium (Porcine) (Heparin) 0 unit IV PER PROTOCOL PRN; Protocol PRN Reason: Low PTT Heparin Sodium (Porcine) (Heparin) 0 unit IV PER PROTOCOL PRN; Protocol PRN Reason: Low PTT Sodium Chloride (Saline 0.9%) 1,000 mls @ 50 mls/hr IV .Q20H [facility] Last Admin: 08/17/18 10:34 Dose: 50 mls/hr Documented by: Heparin Sodium/Sodium Chloride (25,000 unit/ Sodium Chloride) 250 mls @ 9.968 mls/hr IV .Q24H [facility]; Protocol Last Admin: 08/17/18 14:02 Dose: 8 units/kg/hr, 9.968 mls/hr Documented by: Lisinopril (Zestril) 2.5 mg PO DAILY [facility] Last Admin: 08/18/18 08:38 Dose: 2.5 mg Documented by: Miscellaneous Information (Rx Info: Iv Contrast Was Given) 1 each MISCELLANE DAILY PRN PRN Reason: Per Protocol Stop: 08/19/18 10:11 Miscellaneous Information (Magnesium Per Protocol) 1 each MISCELLANE DAILY PRN; Protocol PRN Reason: Per Protocol Mupirocin (Bactroban Oint) 1 applic NASAL BID [facility] Stop: 08/22/18 21:01 Naloxone HCl (Narcan) 0.2 mg IV Q2M PRN PRN Reason: Opioid Reversal Nitroglycerin (Nitrostat) 0.4 mg SUBLINGUAL Q5M PRN PRN Reason: Chest Pain Nitroglycerin (Nitro-Bid Oint) 0.5 inch TOPICAL Q8HR [facility] Last Admin: 08/18/18 08:38 Dose: 0.5 inch Documented by: Pantoprazole Sodium (Protonix) 40 mg PO AC-BRKFST [facility] Objective - Vital Signs Vital signs: Vital Signs Temp 97.9 F 08/18/18 04:00 Pulse 52 L 08/18/18 12:00 Resp 16 08/18/18 12:00 BP 110/60 08/18/18 11:28 Pulse Ox 97 08/18/18 11:28 Intake & Output 08/17/18 08/18/18 08/18/18 18:59 06:59 18:59 Intake Total 930 1920 300 Output Total 600 1600 550 Balance 330 320 -250 Weight 127.5 kg Intake: IV 450 600 300 Sodium Chloride 0.9% 1, 250 600 300 000 ml @ 50 mls/hr IV . Q20H [facility] Rx#:[id number] Oral 480 1320 Output: Urine 600 1600 550 Other: Voiding Method Toilet Toilet Toilet # Voids 1 1 1 # Bowel Movements 1 - Exam GEN. APPEARANCE: alert, in no apparent distress HEAD EXAM: atraumatic, normocephalic, normal inspection EYE EXAM: normal appearance, PERRL, EOMI. Absent: scleral icterus, conjunctival injection, periorbital swelling ENT EXAM: normal exam, mucous membranes moist RESPIRATORY EXAM: Distant breath sounds heard bilaterally. No wheezes or crackles. CARDIOVASCULAR EXAM: Irregularly irregular GI/ABDOMINAL EXAM: soft, normal bowel sounds. Absent: distended, tenderness, guarding, rebound, rigid. EXTREMITIES EXAM: bilateral pitting edema. NEUROLOGICAL EXAM: alert, oriented X3, no focal neurological deficits. SKIN EXAM: warm, dry, intact, normal color. Absent: rash - Labs CBC & Chem 7: 08/18/18 05:04 08/18/18 05:04 Labs: Abnormal Lab Results - Last 24 Hours (Table) 08/17/18 08/17/18 08/17/18 Range/Units 11:07 11:07 13:25 RBC (3.80-5.40) m/uL Hgb (11.4-16.0) gm/dL Hct (34.0-46.0) % MCHC (31.0-37.0) g/dL RDW (11.5-15.5) % PT 12.1 H (9.0-12.0) sec INR 1.2 H (<1.2) APTT (22.0-30.0) sec BUN (7-17) mg/dL Glucose (74-99) mg/dL POC Glucose (mg/dL) 109 H (75-99) mg/dL Total Protein (6.3-8.2) g/dL Albumin (3.5-5.0) g/dL HDL Cholesterol 30 L (40-60) mg/dL 08/17/18 08/18/18 08/18/18 Range/Units 20:31 05:04 05:04 RBC 2.48 L (3.80-5.40) m/uL Hgb 7.4 L (11.4-16.0) gm/dL Hct 23.8 L (34.0-46.0) % MCHC 30.9 L (31.0-37.0) g/dL RDW 16.3 H (11.5-15.5) % PT (9.0-12.0) sec INR (<1.2) APTT 52.1 H (22.0-30.0) sec BUN 21 H (7-17) mg/dL Glucose 101 H (74-99) mg/dL POC Glucose (mg/dL) (75-99) mg/dL Total Protein 6.2 L (6.3-8.2) g/dL Albumin 3.3 L (3.5-5.0) g/dL HDL Cholesterol (40-60) mg/dL 08/18/18 Range/Units 05:04 RBC (3.80-5.40) m/uL Hgb (11.4-16.0) gm/dL Hct (34.0-46.0) % MCHC (31.0-37.0) g/dL RDW (11.5-15.5) % PT (9.0-12.0) sec INR (<1.2) APTT 58.9 H (22.0-30.0) sec BUN (7-17) mg/dL Glucose (74-99) mg/dL POC Glucose (mg/dL) (75-99) mg/dL Total Protein (6.3-8.2) g/dL Albumin (3.5-5.0) g/dL HDL Cholesterol (40-60) mg/dL Microbiology - Last 24 Hours (Table) 08/17/18 23:30 Nasal Screen MRSA/MSSA - Preliminary Nasal Swab 08/17/18 15:09 Urine Culture - Preliminary Urine,Clean Catch Assessment and Plan Assessment: ASSESSMENT Acute on chronic diastolic heart failure Multivessel coronary artery disease Chronic persistent atrial fibrillation Essential hypertension Non-ST elevation [place] Primary osteoarthritis Morbid obesity with BMI of 54.9 Nicotine dependence quit smoking in March 2018 Chronic normocytic anemia PLAN: Patient is being scheduled for coronary artery bypass grafting due to extensive multivessel coronary artery disease. Patient is is to be continued on heparin drip. CT surgery on board and preoperative evaluation in progress. Continue with the current medication regimen. Dr. Almaraz will be following the patient from tomorrow.
--- NOTE | 2018-08-18 13:54 | CT ---
EXAMINATION TYPE: CT angio neck DATE OF EXAM: 08/18/2018 HISTORY: Carotid stenosis COMPARISON: None. CT DLP: 568.5 mGycm. Automated Exposure Control for Dose Reduction was Utilized. TECHNIQUE: CTA scan of the neck is performed with IV Contrast, patient injected with 65 mL of Isovue 370, axial images are obtained, coronal and sagittal reformatted images are reviewed. Three-D recons tructed images are created on an independent workstation and reviewed. FINDINGS: Visualized portions of the lungs are clear. There is diffuse degenerative disc disease and hypertrophic spondylosis with relative sparing of the C2-3 articulation. There is diffuse uncovertebral joint disease. There is mild facet arthropathy on t he left at C3-4. Visualized portions of the paranasal sinuses and mastoids are clear. Visualized intracranial structur es are unremarkable. There is evidence of an azygos lobe and fissure. There is a normal origin of the great vessels. The right vertebral artery is dominant. There is marked atheromatous irregularity of the carotid arteries at the bifurcation. There is an occ lusion of the right internal carotid artery at its origin. There is an 80% by diameter stenosis of th e proximal left internal carotid artery. IMPRESSION: 1. OCCLUSION OF THE RIGHT INTERNAL CAROTID ARTERY AT ITS ORIGIN. 2. 80% BY DIAMETER STENOSIS OF THE PROXIMAL LEFT ICA. 3. DOMINANT RIGHT VERTEBRAL ARTERY. 4. DEGENERATIVE CHANGE WITHIN THE SPINE.
[2018-08-18] MEDS: HEPARIN SOD,PORK IN 0.45% NACL 25,000 UNIT in 0.45% NACL 1 250ML.BAG IV SCH (14:53)
[2018-08-18] MEDS: SODIUM CHLORIDE 0.9% 1,000 ML IV SCH (20:11)
[2018-08-18] MEDS: ATORVASTATIN 80 MG TAB PO SCH (20:12)
[2018-08-19] MEDS: SODIUM CHLORIDE 0.9% 1,000 ML IV SCH ×2 (02:15→21:18)
[2018-08-19 05:14] LABS: Glucose,Whole Blood 108 mg/dL (75-99)
[2018-08-19 05:30] LABS: Anisocytosis Slight; Basophils % (A) 0 %; Eosinophils # (A) 0.2 k/uL (0-0.7); Eosinophils % (A) 2 %; HCT 25.2 % (34.0-46.0); HGB 7.8 gm/dL (11.4-16.0); Hypochromasia Marked; Lymphocytes # (A) 1.2 k/uL (1.0-4.8); Lymphocytes % (A) 16 %; MCH 30.3 pg (25.0-35.0); MCV 97.6 fL (80.0-100.0); Macrocytosis Slight; Mean Platelet Volume 9.9; Monocytes # (A) 0.3 k/uL (0-1.0); Monocytes % (A) 5 %; Neutrophils # (A) 5.7 k/uL (1.3-7.7); Neutrophils % (A) 75 %; Platelet Count 151 k/uL (150-450); RBC 2.58 m/uL (3.80-5.40); RDW 16.4 % (11.5-15.5); WBC 7.6 k/uL (3.8-10.6)
[2018-08-19 05:52] LABS: Anion Gap 9 mmol/L; Blood Urea Nitrogen 17 mg/dL (7-17); Calcium 8.9 mg/dL (8.4-10.2); Carbon Dioxide 21 mmol/L (22-30); Chloride 109 mmol/L (98-107); Glucose 97 mg/dL (74-99); Magnesium 2.1 mg/dL (1.6-2.3); Potassium 4.1 mmol/L (3.5-5.1); Sodium 139 mmol/L (137-145)
[2018-08-19] MEDS: HEPARIN SODIUM,PORCINE 5,000 UNIT/ML 1 ML VIAL IV PRN (06:43)
[2018-08-19] MEDS: PANTOPRAZOLE 40 MG TABLET PO SCH (06:43)
[2018-08-19] MEDS ORDERED: BUMETANIDE 1 MG TAB PO SCH ×2 (08:00→17:00)
[2018-08-19] MEDS: CARVEDILOL 3.125 MG TAB PO SCH ×2 (08:44→19:30)
[2018-08-19] MEDS: NITROGLYCERIN OINT 1 INCH/GM PACKET TOPICAL SCH ×2 (08:47→16:49)
[2018-08-19] MEDS: ASPIRIN 81 MG PO SCH (08:47)
[2018-08-19] MEDS: BUMETANIDE 1 MG TAB PO SCH ×2 (08:48→16:50)
[2018-08-19] MEDS: LISINOPRIL 2.5 MG TAB PO SCH (08:48)
[2018-08-19] MEDS: CINACALCET 30 MG TAB PO SCH ×2 (08:48→22:17)
--- NOTE | 2018-08-19 09:53 | P.PN ---
Subjective Progress Note Date: 08/19/18 Principal diagnosis: Non-ST elevated myocardial infarction, symptomatic multivessel coronary artery disease, acute on chronic diastolic dysfunction congestive heart failure, chroni c atrial fibrillation, history of coronary artery disease with previous stent placement in 2003, hypertension, hyperlipidemia, morbid obesity with an admission BMI of 53.6 kg/m, peripheral vascular disease, bilateral carotid artery stenosis with a totally occluded right ICA, history of chronic nicotine abuse quit smoking in March 2018, chronic normocytic anemia, and osteoarthritis. This is 67-year-old female patient who presented to the emergency department on 08/15/2018 with complaints of progressive shortness of breath and increasing leg swelling. On presentation to the emergency department she did have positive troponins as high as 0.072. She was seen by Dr. Jackson from [facility] and subsequently underwent a heart catheterization which demonstrated an 80% stenosis to her left main coronary artery, a 70% stenosis to her diagonal coronary artery, an 80% stenosis to her proximal circumflex coronary artery and a totally occluded right coronary artery with collaterals from the left system. A 2-D echocardiogram was completed yesterday although the results are un available at this time. The patient did have a bedside FEV1 completed this morning which showed 71% of predicted value. A carotid duplex study was also completed as part of her preoperative workup which demonstrated a complete occlusion of her right internal carotid artery and significant plaque formation in the left internal carotid artery with velocities that suggest more than 70% stenosis. For further evaluation a CTA of her neck was completed yesterday which demonstrated a total occlusion of her right ICA and an 80% stenosis to her left ICA. Currently the patient is sitting up to the bedside chair in the intensive care unit. She is in no acute distress. She remained hemodynamically stable and is on no inotropic or pressor support. She denies any complaints of chest pain, although reports she does get short of breath with minimal activity. Oxygen saturation are 94% on 2 L nasal cannula and she is achieving 6341-2133 mL on her incentive spirometry. Heparin drip remains infusing per protocol for atrial fibrillation, Eliquis remains on hold. She remains afebrile. Objective - Vital Signs Vital signs: Vital Signs Temp 98.1 F 08/19/18 08:00 Pulse 58 L 08/19/18 09:00 Resp 12 08/19/18 09:00 BP 98/51 08/19/18 09:00 Pulse Ox 95 08/19/18 09:00 Intake & Output 08/18/18 08/19/18 08/19/18 18:59 06:59 18:59 Intake Total 1327.705 759.488 100 Output Total 750 955 Balance 577.705 -195.512 100 Weight 125.1 kg Intake: IV 600 600 100 Sodium Chloride 0.9% 1, 600 600 100 000 ml @ 50 mls/hr IV . Q20H JUANJOSE Rx#:[id number] Intake, IV Titration 247.705 159.488 Amount Heparin Sod,Pork in 0.45% 247.705 159.488 NaCl 25,000 unit In 0.45 % NaCl 1 250ml.bag @ 8 UNITS/KG/HR 9.968 mls/hr IV .Q24H JUANJOSE Rx#: [id number] Oral 480 Output: Urine 750 955 Other: Voiding Method Toilet Bedside Commode Bedside Commode # Voids 1 1 1 # Bowel Movements 1 - Constitutional General appearance: Present: cooperative, morbidly obese, no acute distress - Respiratory Details: Lung sounds essentially clear to bilateral upper lobes, few scattered crackles to bilateral bases. Respirations are symmetrical and nonlabored. Oxygen saturation are 94% on 2 L nasal cannula. Achieving 9935-1222 mL on her incentive spirometry. Bedside FEV1 was completed yesterday which showed a 47% of predicted value with an FVC of 43% of predicted value. - Cardiovascular Details: Irregular rhythm consistent with atrial fibrillation with controlled rate. S1 and S2 present, negative for S3, gallop or murmur. +1 edema to her bilateral lower extremities. Knee-high sequential compression devices in place to bilateral lower extremities. - Gastrointestinal Gastrointestinal Comment(s): Abdomen soft, nontender and nondistended. Active bowel sounds all 4 abdominal quadrants. Obese. No guarding or rigidity. No organomegaly. Tolerating oral intake. - Genitourinary Genitourinary Comment(s): Voiding clear yellow urine. - Integumentary Integumentary Comment(s): Skin is warm and dry. Clubbing or cyanosis is present. Chronic skin changes to her bilateral lower extremities with some scattered erythema. - Neurologic Neurologic: Present: CNII-XII intact - Musculoskeletal Musculoskeletal: Present: gait normal, generalized weakness, strength equal bilaterally - Psychiatric Psychiatric: Present: A&O x's 3, appropriate affect, intact judgment & insight - Allied health notes Allied health notes reviewed: nursing - Labs CBC & Chem 7: 08/19/18 05:00 08/19/18 05:00 Labs: Abnormal Lab Results - Last 24 Hours (Table) 08/19/18 08/19/18 08/19/18 Range/Units 05:00 05:00 05:00 RBC 2.58 L (3.80-5.40) m/uL Hgb 7.8 L (11.4-16.0) gm/dL Hct 25.2 L (34.0-46.0) % RDW 16.4 H (11.5-15.5) % APTT 46.6 H (22.0-30.0) sec Chloride 109 H (98-107) mmol/L Carbon Dioxide 21 L (22-30) mmol/L POC Glucose (mg/dL) (75-99) mg/dL 08/19/18 Range/Units 05:11 RBC (3.80-5.40) m/uL Hgb (11.4-16.0) gm/dL Hct (34.0-46.0) % RDW (11.5-15.5) % APTT (22.0-30.0) sec Chloride (98-107) mmol/L Carbon Dioxide (22-30) mmol/L POC Glucose (mg/dL) 108 H (75-99) mg/dL Microbiology - Last 24 Hours (Table) 08/17/18 15:09 Urine Culture - Final Urine,Clean Catch 08/17/18 23:30 Nasal Screen MRSA/MSSA - Preliminary Nasal Swab - Imaging and Cardiology CTA of the neck results reviewed. Assessment and Plan Assessment: 1. Non-ST elevated myocardial infarction this admission with elevated troponins. 2. Symptomatic multivessel coronary artery disease with left main disease. 3. Acute on chronic diastolic dysfunction with an ejection fraction of 50-55%. 4. Chronic atrial fibrillation. 5. History of hypertension. 6. Hyperlipidemia. 7. Morbid obesity with a current BMI of 53.6 kg/m. 8. Chronic peripheral venous insufficiency with chronic skin changes over her bilateral lower extremities. 9. Osteoarthritis. 10. History of chronic nicotine abuse, quit smoking in March 2018. 11. Bilateral internal carotid artery stenosis, totally occluded right ICA and an 80% stenosis to her left ICA. 12. Chronic anemia, normocytic 13. Peripheral vascular disease bilateral lower extremity ABIs less than 0.9. Plan: 1. Continue to maximize medical therapy with aspirin, statin, RASHAAD inhibitor, an d beta louann. 2. Continue to reinforce preoperative teaching. 3. Heparin drip and diuretic management per cardiology. 4. Encourage use of his incentive spirometry every hour while awake. 5. Encourage continued smoking cessation, discussed the importance of smoking cessation with the patient. 6. 5 m walk test completed yesterday 08/18/2018: Time 1: 11.35 seconds Time 2: 10.53 seconds Time 3: 9.23 seconds. 7. Activity as tolerated, ambulate in the hallway with assistance. Cardiac rehab is following. 8. DVT and GI prophylaxis in place. Continue heparin drip, knee-high sequential compression devices and Protonix. 9. Medical management per primary care service. 10. The patient will be scheduled for myocardial vascularization surgery with MURDOCK and endoscopic vein harvesting, possible maze procedure for 08/23/2018 to be performed by Dr. Jones Palm. 11. More recommendations to follow based on patient's clinical course. Time with Patient: Greater than 30
[2018-08-19] MEDS: ACETAMINOPHEN TAB 325 MG TAB PO PRN ×2 (11:26→22:17)
--- NOTE | 2018-08-19 11:43 | P.PN ---
Subjective Progress Note Date: 08/19/18 Principal diagnosis: Multivessel coronary artery disease, acute non-ST elevation myocardial infarction 67-year-old female patient with known history of chronic atrial fibrillation, coronary artery disease with previous coronary intervention and stenting back in 2003, hypertension and hyperlipidemia and CHF with diastolic heart failure and an ejection fraction of 50%. The patient is a chronic ex-smoker and she has quit smoking in March 2018 and she was peripheral artery disease and chronic osteoarthritis and she is obese with a BMI of 53.6. The patient was recently admitted to the hospital on 08/03/2018 for symptoms of worsening shortness of breath and lightheadedness. During the admission the patient abnormal troponins. The patient back then diffuse cardiac catheterization and she went home. She came back to the emergency department on 08/15/2018 with progressive dyspnea and lower extremity swelling. At that time she was seen by cardiology. EKG showed atrial fibrillation controlled rate. The patient had a normal kidney function. The patient underwent a cardiac catheterization and showed 80% stenosis in the left main, 70% stenosis of diagonal artery, 80% stenosis of the proximal circumflex artery, totally occluded RCA with collaterals from the left system. The patient is currently in the intensive care unit. She is on IV heparin. The patient will be seen by cardiothoracic surgery team for a surgical evaluation and recommendations for revascularization surgery. Her chest x-ray showing some limited scarring in segment V changes in lung bases bilaterally. There is also some mild cardiomegaly. The patient is currently on Bumex 1 mg twice a day. The patient is also on aspirin, IV heparin, lisinopril 2.5 mg by mouth daily Coreg 3.125 mg by mouth twice a day. On today's evaluation of 08/18/2018 the patient is hemodynamically stable, co mfortable free of any chest pain and free of any shortness of breath. She is still awaiting cardiac bypass surgery. Based on our calculation, her surgical risk is in the order of 11% mortality. The patient's FEV1 is normal at of 47% of predicted and this is consistent with restrictive lung disease due to obesity. She also has bilateral carotid artery stenosis on the Dopplers and the patient would have a CT angios of the neck. The patient has significant plaquing in the internal carotid artery on the left in the order of 70%. There is also bilateral external carotid artery disease in the order of 50-70%. The patient is currently on IV heparin. She is also on Bumex 1 mg twice a day. No angina. No other complaints otherwise for now. Reevaluated today on 08/19/2018, patient remains in the ICU, comfortable, denies any chest pain, denies any shortness of breath. Patient is being considered for myocardial revascularization, she was already cleared by surgery by Dr. Banerjee, FEV1 was noted to be at 47% of the predicted value, she has restrictive lung disease secondary to obesity. And she was found to have bilateral carotid artery disease on Doppler and on CT angiogram of the neck showing 80% stenosis of proximal left internal carotid artery, occlusion of the right internal carotid artery at its origin. Patient is not requiring any pressors at this point, she is hemodynamically stable, and again she is asymptomatic O2 sat is 94% on 2 L nasal cannula, doing great with incentive spirometry. Remains on heparin drip for atrial fibrillation, CBC showed a hemoglobin of 7.8 WBC count is 7.6, electrolytes are normal renal profile is normal. Objective - Vital Signs Vital signs: Vital Signs Temp 98.1 F 08/19/18 08:00 Pulse 70 08/19/18 11:00 Resp 16 08/19/18 11:00 BP 95/56 08/19/18 11:00 Pulse Ox 97 08/19/18 11:00 Intake & Output 08/18/18 08/19/18 08/19/18 18:59 06:59 18:59 Intake Total 1327.705 759.488 250 Output Total 750 955 Balance 577.705 -195.512 250 Weight 125.1 kg Intake: IV 600 600 250 Sodium Chloride 0.9% 1, 600 600 250 000 ml @ 50 mls/hr IV . Q20H JUANJOSE Rx#:[id number] Intake, IV Titration 247.705 159.488 Amount Heparin Sod,Pork in 0.45% 247.705 159.488 NaCl 25,000 unit In 0.45 % NaCl 1 250ml.bag @ 8 UNITS/KG/HR 9.968 mls/hr IV .Q24H JUANJOSE Rx#: [id number] Oral 480 Output: Urine 750 955 Other: Voiding Method Toilet Bedside Commode Bedside Commode # Voids 1 1 1 # Bowel Movements 1 1 - Exam Physical Exam: Revealed 67-year-old female, obese, pleasant, in no distress. Head: Atraumatic, normocephalic. HEENT:[Neck is supple.] [No neck masses.] [No thyromegaly.] [No JVD.] PERRLA, EOMI, no icterus. Chest: [Clear throughout, diminished breath sounds at the bases. no crackles, no rhonchi, no wheezes.] Cardiac Exam: [Normal S1 and S2, no S3 gallop, no murmur.] Abdomen: [Soft, nontender, no megaly, no rebound, no guarding, normal bowel sounds.] Extremities: [No clubbing, chronic skin changes noted in lower extremities secondary to venous stasis changes. Neurological Exam: [No focal neurologic deficit. Alert oriented 3. Psychiatric: Normal mood, affect and mental status examination. Lymphatics: No lymphadenopathy. Musculoskeletal: No deformities and no limitation in range of motion.] - Labs CBC & Chem 7: 08/19/18 05:00 08/19/18 05:00 Labs: Abnormal Lab Results - Last 24 Hours (Table) 08/19/18 08/19/18 08/19/18 Range/Units 05:00 05:00 05:00 RBC 2.58 L (3.80-5.40) m/uL Hgb 7.8 L (11.4-16.0) gm/dL Hct 25.2 L (34.0-46.0) % RDW 16.4 H (11.5-15.5) % APTT 46.6 H (22.0-30.0) sec Chloride 109 H (98-107) mmol/L Carbon Dioxide 21 L (22-30) mmol/L POC Glucose (mg/dL) (75-99) mg/dL 08/19/18 Range/Units 05:11 RBC (3.80-5.40) m/uL Hgb (11.4-16.0) gm/dL Hct (34.0-46.0) % RDW (11.5-15.5) % APTT (22.0-30.0) sec Chloride (98-107) mmol/L Carbon Dioxide (22-30) mmol/L POC Glucose (mg/dL) 108 H (75-99) mg/dL Microbiology - Last 24 Hours (Table) 04/13/19 15:09 Urine Culture - Final Urine,Clean Catch 08/17/18 23:30 Nasal Screen MRSA/MSSA - Preliminary Nasal Swab Assessment and Plan Assessment: Impression: 1 acute non-ST elevation myocardial infarction 2 severe obstructive and restrictive lung disease 3 symptomatic multivessel coronary artery disease 4 benign essential hypertension 5 chronic atrial fibrillation 6 morbid obesity 7 carotid artery disease 8 chronic venous insufficiency 9 history of smoking, quit in March of 2018. 10 chronic anemia 11 peripheral vessel occlusive disease, involving both lower extremities. Recommendation: Continue to maximize medical therapy, including aspirin statins and beta blockers RASHAAD inhibitor's. Continue incentive spirometry, continue heparin drip, continue diuretics, ambulate as tolerated, continue GI and DVT prophylaxis, patient may require myocardial revascularization in the next few days, she is relatively moderate to high operative risk. We'll continue to follow Time with Patient: Less than 30
--- NOTE | 2018-08-19 12:23 | PN ---
PROGRESS NOTE Ekaterina is a is 67-year-old lady with significant left main stenosis who is awaiting bypass surgery. Patient had a carotid duplex study that revealed chronically occluded right internal carotid artery with severe stenosis involving the left internal carotid artery. She underwent a CTA of the neck that shows an 80% stenosis involving proximal left internal carotid artery. Patient is chest pain-free and hemodynamically stable. She is on oral Bumex, aspirin Lipitor, Coreg, intravenous heparin and nitro paste. PHYSICAL EXAM: Comfortable at rest. Vital signs are stable. Chest exam reveals good air entry bilaterally. Heart exam reveals first and second heart sounds. No gallop. Exam of extremities did not reveal any edema. Peripheral pulses are palpable. LABS: Show that the potassium is 4.1, creatinine is 0.7, hemoglobin is 7.8. ASSESSMENT: 1. Severe significant left main stenosis. 2. Severe carotid stenosis. PLAN: Patient will continue with current medications. Will talk to Dr. Herbert when he rounds today whether we need to address the carotid stenosis now and we can do it after surgery. Should the patient undergo a combined surgery. If patient is to have carotid stenting on the same day of the surgery, I will ask Dr. Pop to see the patient. MMODL / IJN: [id number] /
[2018-08-19] MEDS: HEPARIN SOD,PORK IN 0.45% NACL 25,000 UNIT in 0.45% NACL 1 250ML.BAG IV SCH (16:47)
[2018-08-19] MEDS: MUPIROCIN 2% OINT 22 GM TUBE NASAL SCH ×2 (16:48→21:15)
[2018-08-19] MEDS ORDERED: MD COMMUNICATION TO PHARMACY 1 EACH MISC PO ONE ×2 (17:19)
--- NOTE | 2018-08-19 20:21 | PN ---
PROGRESS NOTE DATE OF SERVICE: 08/19/2018 PRESENTING COMPLAINT: Short of breath. INTERVAL HISTORY: This patient was admitted with acute CHF exacerbation and recurrent myocardial infarction, non-Q-wave [place] type. Today patient is sitting up on a chair. On room air. Did tolerate her meals. Has walked a few steps. Awaiting coronary artery bypass on coming Sunday. No chest pain. Breathing is stable. REVIEW OF SYSTEMS: Done for constitutional, cardiovascular, GI, pulmonary; relevant findings as above. CURRENT MEDICATIONS: Reviewed. They include IV heparin. PHYSICAL EXAMINATION: Temperature 98.2, pulse 73, respirations 18, blood pressure 114/57, pulse ox 92% on room air. GENERAL APPEARANCE: Sitting up on a chair, awake, not in distress. EYES: Pupils equal. Conjunctivae normal. NECK: JVD unable to assess. Mass not palpable. RESPIRATORY: Effort increased. LUNGS: Diminished breath sounds. CARDIOVASCULAR: Heart sounds muffled. Minimal edema. ABDOMEN: Distended, soft. Liver and spleen not palpable. PSYCHIATRY: Alert and oriented x3. Mood and affect normal. INVESTIGATIONS: White count 7.6, hemoglobin 7.8, potassium 4.1, BUN 17, creatinine 0.70. CTA shows occlusion of the right internal carotid artery at its origin and left ICA is 80% stenosed. Two-D echocardiogram shows EF of 40% to 45% and multiple wall motion abnormalities. ASSESSMENT: 1. Severe coronary artery disease per cardiac catheterization, pending coronary artery bypass this Sunday. 2. Acute on chronic congestive heart failure exacerbation from diastolic dysfunction, ejection fraction 35% to 40%, from systolic and diastolic dysfunction, now stabilized. 3. Hypertensive heart disease. 4. Persistent atrial fibrillation. Patient was on Eliquis. 5. Essential hypertension. 6. Primary osteoarthritis. 7. Complete occlusion of the right internal carotid artery and 80% of the left internal carotid artery. 8. Acute ese-EP-hjimsqisf myocardial infarction, present . 9. Severe obstructive and restrictive lung disease. 10.Peripheral arterial disease of both lower extremities. 11.Chronic venous insufficiency. 12.IV heparin monitoring. PLAN: Continue current medication and treatment plan. Care was discussed with the patient. Patient is pending coronary artery bypass this Sunday. MMODL / IJN: [id number] /
[2018-08-19] MEDS: ATORVASTATIN 80 MG TAB PO SCH (21:16)
[2018-08-20] MEDS: NITROGLYCERIN OINT 1 INCH/GM PACKET TOPICAL SCH ×3 (00:06→17:09)
[2018-08-20 06:47] LABS: Anisocytosis Slight; Basophils % (A) 0 %; Eosinophils # (A) 0.2 k/uL (0-0.7); Eosinophils % (A) 2 %; HCT 26.7 % (34.0-46.0); HGB 8.5 gm/dL (11.4-16.0); Hypochromasia Marked; Lymphocytes # (A) 1.1 k/uL (1.0-4.8); Lymphocytes % (A) 13 %; MCH 31.6 pg (25.0-35.0); MCV 98.6 fL (80.0-100.0); Macrocytosis Slight; Mean Platelet Volume 10.6; Monocytes # (A) 0.4 k/uL (0-1.0); Monocytes % (A) 5 %; Neutrophils # (A) 6.7 k/uL (1.3-7.7); Neutrophils % (A) 78 %; Platelet Count 148 k/uL (150-450); RDW 16.7 % (11.5-15.5); WBC 8.6 k/uL (3.8-10.6)
[2018-08-20 07:23] LABS: ALT 36 U/L (9-52); AST 22 U/L (14-36); Albumin 3.4 g/dL (3.5-5.0); Alkaline Phosphatase 119 U/L (38-126); Anion Gap 9 mmol/L; Blood Urea Nitrogen 16 mg/dL (7-17); Calcium 9.5 mg/dL (8.4-10.2); Carbon Dioxide 20 mmol/L (22-30); Chloride 112 mmol/L (98-107); Glucose 95 mg/dL (74-99); Phosphorus 2.5 mg/dL (2.5-4.5); Potassium 4.2 mmol/L (3.5-5.1); Sodium 141 mmol/L (137-145); Total Bilirubin 0.7 mg/dL (0.2-1.3); Total Protein 6.3 g/dL (6.3-8.2)
--- NOTE | 2018-08-20 08:18 | P.PN ---
Subjective Progress Note Date: 08/20/18 Principal diagnosis: Non-ST elevated myocardial infarction, symptomatic multivessel coronary artery disease, acute on chronic diastolic dysfunction congestive heart failure, chroni c atrial fibrillation, history of coronary artery disease with previous stent placement in 2003, hypertension, hyperlipidemia, morbid obesity with an admission BMI of 53.6 kg/m, peripheral vascular disease, bilateral carotid artery stenosis with a totally occluded right ICA, history of chronic nicotine abuse quit smoking in March 2018, chronic normocytic anemia, and osteoarthritis. This is 67-year-old female patient who presented to the emergency department on 08/15/2018 with complaints of progressive shortness of breath and increasing leg swelling. On presentation to the emergency department she did have positive troponins as high as 0.072. She was seen by Dr. Jackson from [facility] and subsequently underwent a heart catheterization which demonstrated an 80% stenosis to her left main coronary artery, a 70% stenosis to her diagonal coronary artery, an 80% stenosis to her proximal circumflex coronary artery and a totally occluded right coronary artery with collaterals from the left system. A 2-D echocardiogram was completed yesterday although the results are un available at this time. The patient did have a bedside FEV1 completed this morning which showed 71% of predicted value. A carotid duplex study was also completed as part of her preoperative workup which demonstrated a complete occlusion of her right internal carotid artery and significant plaque formation in the left internal carotid artery with velocities that suggest more than 70% stenosis. For further evaluation a CTA of her neck was completed yesterday which demonstrated a total occlusion of her right ICA and an 80% stenosis to her left ICA. Patient is sitting up to the bedside chair in the intensive care unit. She is in no acute distress. Denies any complaints of pain or shortness of breath at this time. Remains hemodynamically stable and afebrile. Oxygen saturations are 97% on room air And she is achieving 1500 mL on her incentive spirometry. She reports that she has been having some episodes of loose stool throughout the night. Lab results this morning show a WBC 8.6, Hgb 8.5, and platelet count of 148. Remains on a heparin drip due to her atrial fibrillation and her Eliquis remains on hold. Preoperative teaching reinforced with the patient and her questions were answered to the best of my ability. Objective - Vital Signs Vital signs: Vital Signs Temp 98.3 F 08/20/18 04:00 Pulse 82 08/20/18 06:00 Resp 14 08/20/18 06:00 BP 132/70 08/20/18 06:00 Pulse Ox 94 L 08/20/18 06:00 Intake & Output 08/19/18 08/20/18 08/20/18 18:59 06:59 18:59 Intake Total 690.512 650 Output Total 0 Balance 690.512 650 Intake: IV 600 650 Sodium Chloride 0.9% 1, 600 650 000 ml @ 50 mls/hr IV . Q20H [facility] Rx#:[id number] Intake, IV Titration 90.512 Amount Heparin Sod,Pork in 0.45% 90.512 NaCl 25,000 unit In 0.45 % NaCl 1 250ml.bag @ 8 UNITS/KG/HR 9.968 mls/hr IV .Q24H [facility] Rx#: [id number] Output: Urine 0 Other: Voiding Method Bedside Commode Bedside Commode # Voids 1 1 # Bowel Movements 1 1 - Constitutional General appearance: Present: cooperative, morbidly obese, no acute distress - Respiratory Details: Lung sounds essentially clear but diminished throughout. Respirations are symmetrical and nonlabored. Oxygen saturation are 97% on room air. Achieving 1500 mL on her incentive spirometry. - Cardiovascular Details: Irregular rhythm consistent with atrial fibrillation and controlled rate. S1 and S2 present, negative for S3, gallop or murmur. Bedside telemetry showing atrial fibrillation heart rate 73. +1 edema to his bilateral lower extremities. - Gastrointestinal Gastrointestinal Comment(s): Abdomen is soft, nontender and nondistended. Active bowel sounds to all 4 abdominal quadrants. No guarding or rigidity. No organomegaly. Diarrhea. - Genitourinary Genitourinary Comment(s): Voiding clear yellow urine. - Integumentary Integumentary Comment(s): Skin is warm and dry. No clubbing or cyanosis is present. Chronic skin changes to her bilateral lower extremities secondary to venous stasis changes. - Neurologic Neurologic: Present: CNII-XII intact - Musculoskeletal Musculoskeletal: Present: gait normal, generalized weakness, strength equal bilaterally - Psychiatric Psychiatric: Present: A&O x's 3, appropriate affect, intact judgment & insight - Allied health notes Allied health notes reviewed: nursing - Labs CBC & Chem 7: 08/20/18 05:39 08/20/18 05:39 Labs: Abnormal Lab Results - Last 24 Hours (Table) 08/19/18 08/20/18 08/20/18 Range/Units 13:16 05:39 05:39 RBC 2.70 L (3.80-5.40) m/uL Hgb 8.5 L (11.4-16.0) gm/dL Hct 26.7 L (34.0-46.0) % RDW 16.7 H (11.5-15.5) % Plt Count 148 L (150-450) k/uL APTT 57.7 H (22.0-30.0) sec Chloride 112 H (98-107) mmol/L Carbon Dioxide 20 L (22-30) mmol/L Albumin 3.4 L (3.5-5.0) g/dL 08/20/18 Range/Units 05:48 RBC (3.80-5.40) m/uL Hgb (11.4-16.0) gm/dL Hct (34.0-46.0) % RDW (11.5-15.5) % Plt Count (150-450) k/uL APTT 133.9 H* (22.0-30.0) sec Chloride (98-107) mmol/L Carbon Dioxide (22-30) mmol/L Albumin (3.5-5.0) g/dL Microbiology - Last 24 Hours (Table) 08/17/18 23:30 Nasal Screen MRSA/MSSA - Final Nasal Swab Assessment and Plan Assessment: 1. Non-ST elevated myocardial infarction this admission with elevated troponins. 2. Symptomatic multivessel coronary artery disease with left main disease. 3. Acute on chronic diastolic dysfunction with an ejection fraction of 50-55%. 4. Chronic atrial fibrillation. 5. History of hypertension. 6. Hyperlipidemia. 7. Morbid obesity with a current BMI of 53.6 kg/m. 8. Chronic peripheral venous insufficiency with chronic skin changes over her bilateral lower extremities. 9. Osteoarthritis. 10. History of chronic nicotine abuse, quit smoking in March 2018. 11. Bilateral internal carotid artery stenosis, totally occluded right ICA and an 80% stenosis to her left ICA. 12. Chronic anemia, normocytic 13. Peripheral vascular disease bilateral lower extremity ABIs less than 0.9. Plan: 1. Continue to maximize medical therapy with aspirin, statin, RASHAAD inhibitor, and beta louann. 2. Continue to reinforce preoperative teaching. 3. Heparin drip and diuretic management per cardiology. 4. Encourage use of his incentive spirometry every hour while awake. 5. Encourage continued smoking cessation, discussed the importance of smoking cessation with the patient. 6. 5 m walk test completed yesterday 08/18/2018: Time 1: 11.35 seconds Time 2: 10.53 seconds Time 3: 9.23 seconds. Ambulated with the assistance of a walker. 7. Activity as tolerated, ambulate in the hallway with assistance. Physical and occupational therapy, Cardiac rehab is following. 8. DVT and GI prophylaxis in place. Continue heparin drip, knee-high sequential compression devices and Protonix. 9. Medical management per primary care service. 10. The patient will be scheduled for myocardial vascularization surgery with MURDOCK and endoscopic vein harvesting, possible maze procedure for 08/23/2018 to be performed by Dr. Jones Palm. 11. Send stool for Clostridium difficile due to her diarrhea. 12. More recommendations to follow based on patient's clinical course. Time with Patient: Greater than 30
[2018-08-20] MEDS: CARVEDILOL 3.125 MG TAB PO SCH ×2 (08:54→17:09)
[2018-08-20] MEDS: ASPIRIN 81 MG PO SCH (08:54)
[2018-08-20] MEDS: PANTOPRAZOLE 40 MG TABLET PO SCH (08:54)
[2018-08-20] MEDS: BUMETANIDE 1 MG TAB PO SCH ×2 (08:55→17:10)
[2018-08-20] MEDS: CINACALCET 30 MG TAB PO SCH ×2 (08:55→21:53)
--- NOTE | 2018-08-20 10:59 | PN ---
PROGRESS NOTE Ekaterina is a 67-year-old lady who is admitted to the hospital with non ST-segment elevation MA. Underwent cardiac catheterization that revealed severe left main stenosis and she is awaiting surgery. The patient has a chronically occluded right internal carotid artery and critical stenosis involving left internal carotid artery. Surgeons have decided that patient will first have bypass surgery and the carotid artery lesion will be addressed down the road. Patient is at increased risk for perioperative stroke given the underlying carotid stenosis. She is doing well. Denies any symptoms. She does not have chest pain or difficulty in breathing. On exam, comfortable at rest. Heart rate is 90 beats per minute. Blood pressure is 123/61. Respiratory rate is 18. Chest exam reveals good air entry bilaterally. Heart exam reveals first and second heart sounds. No gallop. Examination of extremities did not reveal any edema. Peripheral pulses are palpable. She is currently on IV heparin, nitro paste, Coreg 3.125 b.i.d., and Bumex along with aspirin and Lipitor. ASSESSMENT: 1. Left main stenosis. 2. Carotid stenosis. PLAN: Patient is stable. Has not had any symptoms over the last 3 days. Will transfer her to [facility] care. Awaiting surgery. The patient will continue current medications. MMODL / IJN: [id number] /
[2018-08-20] MEDS: SYMBICORT 160-4.5 MCG INHALER INHALATION SCH ×2 (11:36→20:27)
--- NOTE | 2018-08-20 12:36 | P.PN ---
Subjective Progress Note Date: 08/20/18 Principal diagnosis: Multivessel coronary artery disease, acute non-ST elevation myocardial infarction 67-year-old female patient with known history of chronic atrial fibrillation, coronary artery disease with previous coronary intervention and stenting back in 2003, hypertension and hyperlipidemia and CHF with diastolic heart failure and an ejection fraction of 50%. The patient is a chronic ex-smoker and she has quit smoking in March 2018 and she was peripheral artery disease and chronic osteoarthritis and she is obese with a BMI of 53.6. The patient was recently admitted to the hospital on 08/03/2018 for symptoms of worsening shortness of breath and lightheadedness. During the admission the patient abnormal troponins. The patient back then diffuse cardiac catheterization and she went home. She came back to the emergency department on 08/15/2018 with progressive dyspnea and lower extremity swelling. At that time she was seen by cardiology. EKG showed atrial fibrillation controlled rate. The patient had a normal kidney function. The patient underwent a cardiac catheterization and showed 80% stenosis in the left main, 70% stenosis of diagonal artery, 80% stenosis of the proximal circumflex artery, totally occluded RCA with collaterals from the left system. The patient is currently in the intensive care unit. She is on IV heparin. The patient will be seen by cardiothoracic surgery team for a surgical evaluation and recommendations for revascularization surgery. Her chest x-ray showing some limited scarring in segment V changes in lung bases bilaterally. There is also some mild cardiomegaly. The patient is currently on Bumex 1 mg twice a day. The patient is also on aspirin, IV heparin, lisinopril 2.5 mg by mouth daily Coreg 3.125 mg by mouth twice a day. On today's evaluation of 08/18/2018 the patient is hemodynamically stable, co mfortable free of any chest pain and free of any shortness of breath. She is still awaiting cardiac bypass surgery. Based on our calculation, her surgical risk is in the order of 11% mortality. The patient's FEV1 is normal at of 47% of predicted and this is consistent with restrictive lung disease due to obesity. She also has bilateral carotid artery stenosis on the Dopplers and the patient would have a CT angios of the neck. The patient has significant plaquing in the internal carotid artery on the left in the order of 70%. There is also bilateral external carotid artery disease in the order of 50-70%. The patient is currently on IV heparin. She is also on Bumex 1 mg twice a day. No angina. No other complaints otherwise for now. Reevaluated today on 08/19/2018, patient remains in the ICU, comfortable, denies any chest pain, denies any shortness of breath. Patient is being considered for myocardial revascularization, she was already cleared by surgery by Dr. Banerjee, FEV1 was noted to be at 47% of the predicted value, she has restrictive lung disease secondary to obesity. And she was found to have bilateral carotid artery disease on Doppler and on CT angiogram of the neck showing 80% stenosis of proximal left internal carotid artery, occlusion of the right internal carotid artery at its origin. Patient is not requiring any pressors at this point, she is hemodynamically stable, and again she is asymptomatic O2 sat is 94% on 2 L nasal cannula, doing great with incentive spirometry. Remains on heparin drip for atrial fibrillation, CBC showed a hemoglobin of 7.8 WBC count is 7.6, electrolytes are normal renal profile is normal. Patient was seen today on 08/20/2018, remains in the intensive care unit, but she is being transferred to a monitor bed on selective. She is asymptomatic, in no distress, no cough no wheezing no shortness of breath no chest pain, she is hemodynamically stable, O2 saturations 97% on room air, doing extremely well with incentive spirometry, she had some loose stools last night, her labs this morning are relatively unremarkable, remains on heparin drip for atrial fibrillation, and my understanding is her surgery is scheduled in the next 3 days. Objective - Vital Signs Vital signs: Vital Signs Temp 97.9 F 08/20/18 08:00 Pulse 102 H 08/20/18 10:00 Resp 12 08/20/18 10:00 BP 123/61 08/20/18 10:00 Pulse Ox 95 08/20/18 10:00 Intake & Output 08/19/18 08/20/18 08/20/18 18:59 06:59 18:59 Intake Total 690.512 650 444.999 Output Total 0 801 Balance 690.512 650 -356.001 Intake: IV 600 650 250 Sodium Chloride 0.9% 1, 600 650 250 000 ml @ 50 mls/hr IV . Q20H [facility] Rx#:[id number] Intake, IV Titration 90.512 194.999 Amount Heparin Sod,Pork in 0.45% 90.512 194.999 NaCl 25,000 unit In 0.45 % NaCl 1 250ml.bag @ 8 UNITS/KG/HR 9.968 mls/hr IV .Q24H [facility] Rx#: [id number] Output: Urine 0 800 Stool 1 Other: Voiding Method Bedside Commode Bedside Commode Bedside Commode # Voids 1 1 1 # Bowel Movements 1 1 1 - Exam Physical Exam: Revealed 67-year-old female, obese, pleasant, in no distress. On room air Head: Atraumatic, normocephalic. HEENT:[Neck is supple.] [No neck masses.] [No thyromegaly.] [No JVD.] PERRLA, EOMI, no icterus. Chest: [Clear throughout, diminished breath sounds at the bases. no crackles, no rhonchi, no wheezes.] Cardiac Exam: [Normal S1 and S2, no S3 gallop, no murmur.] Abdomen: [Soft, nontender, no megaly, no rebound, no guarding, normal bowel sounds.] Extremities: [No clubbing, chronic skin changes noted in lower extremities secondary to venous stasis changes. Neurological Exam: [No focal neurologic deficit. Alert oriented 3. Psychiatric: Normal mood, affect and mental status examination. Lymphatics: No lymphadenopathy. Musculoskeletal: No deformities and no limitation in range of motion.] - Labs CBC & Chem 7: 08/20/18 05:39 08/20/18 05:39 Labs: Abnormal Lab Results - Last 24 Hours (Table) 08/19/18 08/20/18 08/20/18 Range/Units 13:16 05:39 05:39 RBC 2.70 L (3.80-5.40) m/uL Hgb 8.5 L (11.4-16.0) gm/dL Hct 26.7 L (34.0-46.0) % RDW 16.7 H (11.5-15.5) % Plt Count 148 L (150-450) k/uL APTT 57.7 H (22.0-30.0) sec Chloride 112 H (98-107) mmol/L Carbon Dioxide 20 L (22-30) mmol/L Albumin 3.4 L (3.5-5.0) g/dL 08/20/18 Range/Units 05:48 RBC (3.80-5.40) m/uL Hgb (11.4-16.0) gm/dL Hct (34.0-46.0) % RDW (11.5-15.5) % Plt Count (150-450) k/uL APTT 133.9 H* (22.0-30.0) sec Chloride (98-107) mmol/L Carbon Dioxide (22-30) mmol/L Albumin (3.5-5.0) g/dL Microbiology - Last 24 Hours (Table) 08/17/18 23:30 Nasal Screen MRSA/MSSA - Final Nasal Swab Assessment and Plan Assessment: Impression: 1 acute non-ST elevation myocardial infarction 2 severe obstructive and restrictive lung disease 3 symptomatic multivessel coronary artery disease 4 benign essential hypertension 5 chronic atrial fibrillation 6 morbid obesity 7 carotid artery disease 8 chronic venous insufficiency 9 history of smoking, quit in March of 2018. 10 chronic anemia 11 peripheral vessel occlusive disease, involving both lower extremities. Recommendation: Continue to maximize medical therapy, including aspirin statins and beta blockers RASHAAD inhibitor's. Continue incentive spirometry, continue heparin drip, continue diuretics, ambulate as tolerated, continue GI and DVT prophylaxis, patient may require myocardial revascularization in the next few days, she is relatively moderate to high operative risk. We'll continue to follow patient will be scheduled for myocardial revascularization surgery with MURDOCK and endoscopic vein harvesting possible maze procedure on 08/23/2018, and this will be done by Dr. Palm Time with Patient: Less than 30
[2018-08-20] MEDS: MUPIROCIN 2% OINT 22 GM TUBE NASAL SCH (13:43)
[2018-08-20] MEDS: LISINOPRIL 2.5 MG TAB PO SCH (13:45)
[2018-08-20] MEDS: HEPARIN SOD,PORK IN 0.45% NACL 25,000 UNIT in 0.45% NACL 1 250ML.BAG IV SCH (17:01)
--- NOTE | 2018-08-20 19:42 | PN ---
PROGRESS NOTE PRESENTING COMPLAINT: Short of breath. INTERVAL HISTORY: Patient admitted with acute CHF exacerbation and recurrent myocardial infarction non-Q- wave [place] type. Today, patient is sitting up in a chair. Did tolerate her meals. Remains in atrial fibrillation, pending coronary artery bypass. No chest pain. REVIEW OF SYSTEMS: Done for constitutional, cardiovascular, GI, pulmonary and relevant findings as above. CURRENT MEDICATIONS: Reviewed that include IV heparin. PHYSICAL EXAMINATION: VITAL SIGNS: Temperature 98.2, pulse 69, respiration 19, blood pressure 125/71, pulse ox 96% on room air. GENERAL APPEARANCE: Sitting up in a recliner, awake, comfortable. EYES: Pupils normal. Conjunctivae normal. NECK: JVD unable to assess. Mass not palpable. RESPIRATORY: Effort increased. LUNGS: Diminished breath sounds. CARDIOVASCULAR: Heart sounds irregular. Minimal edema. ABDOMEN: Soft, nontender. Liver and spleen not palpable. PSYCHIATRY: Alert and oriented x3. Mood and affect normal. INVESTIGATIONS: White count 8.6, hemoglobin 8.5, potassium 4.2, BUN 16, creatinine 0.70. C difficile negative. ASSESSMENT: 1. Severe coronary artery disease following cardiac catheterization pending coronary artery bypass this Sunday. 2. Acute on chronic congestive heart failure exacerbation from diastolic dysfunction and systolic dysfunction, EF 35-40 percent, now stabilized. 3. Hypertensive heart disease. 4. Persistent atrial fibrillation currently on IV heparin. 5. Essential hypertension. 6. Primary osteoarthritis. 7. Complete occlusion of right internal carotid artery and 80% left internal carotid artery. 8. Acute non-ST elevation myocardial infarction, POA. 9. Severe obstructive and restrictive lung disease/chronic obstructive pulmonary disease in a recent smoker. 10.Peripheral artery disease. 11.Chronic venous insufficiency lower extremity. 12.IV heparin monitoring. PLAN: Continue medication and treatment plan. The patient is awaiting coronary artery bypass this Sunday. MMODL / IJN: [id number] /
[2018-08-20] MEDS: ATORVASTATIN 80 MG TAB PO SCH (21:53)
[2018-08-21] MEDS: NITROGLYCERIN OINT 1 INCH/GM PACKET TOPICAL SCH ×4 (00:18→23:58)
[2018-08-21 06:37] LABS: ALT 26 U/L (9-52); AST 35 U/L (14-36); Albumin 3.5 g/dL (3.5-5.0); Alkaline Phosphatase 94 U/L (38-126); Anion Gap 7 mmol/L; Blood Urea Nitrogen 17 mg/dL (7-17); Calcium 9.3 mg/dL (8.4-10.2); Carbon Dioxide 23 mmol/L (22-30); Chloride 107 mmol/L (98-107); Glucose 91 mg/dL (74-99); Magnesium 1.8 mg/dL (1.6-2.3); Potassium 4.8 mmol/L (3.5-5.1); Sodium 137 mmol/L (137-145); Total Protein 6.5 g/dL (6.3-8.2)
[2018-08-21 06:42] LABS: Anisocytosis Slight; Basophils % (A) 0 %; Eosinophils # (A) 0.2 k/uL (0-0.7); Eosinophils % (A) 2 %; HCT 29.2 % (34.0-46.0); HGB 9.5 gm/dL (11.4-16.0); Hypochromasia Slight; Lymphocytes # (A) 1.1 k/uL (1.0-4.8); Lymphocytes % (A) 13 %; MCH 30.9 pg (25.0-35.0); MCHC 32.7 g/dL (31.0-37.0); MCV 94.6 fL (80.0-100.0); Mean Platelet Volume 12.1; Monocytes # (A) 0.4 k/uL (0-1.0); Monocytes % (A) 5 %; Neutrophils # (A) 6.7 k/uL (1.3-7.7); Neutrophils % (A) 78 %; Platelet Count 143 k/uL (150-450); Poikilocytosis Slight; RBC 3.08 m/uL (3.80-5.40); RDW 16.4 % (11.5-15.5); WBC 8.5 k/uL (3.8-10.6)
[2018-08-21 07:16] LABS: Large Platelets Present
[2018-08-21 07:17] LABS: Polychromasia Present
[2018-08-21] MEDS: SYMBICORT 160-4.5 MCG INHALER INHALATION SCH ×2 (07:35→19:40)
[2018-08-21] MEDS: SODIUM CHLORIDE 0.9% 1,000 ML IV SCH ×2 (08:57→14:23)
[2018-08-21] MEDS: MUPIROCIN 2% OINT 22 GM TUBE NASAL SCH ×3 (08:58→20:33)
[2018-08-21] MEDS: LISINOPRIL 2.5 MG TAB PO SCH (08:59)
[2018-08-21] MEDS: PANTOPRAZOLE 40 MG TABLET PO SCH (08:59)
[2018-08-21] MEDS: ASPIRIN 81 MG PO SCH (08:59)
[2018-08-21] MEDS: CARVEDILOL 3.125 MG TAB PO SCH ×3 (08:59→22:37)
[2018-08-21] MEDS: BUMETANIDE 1 MG TAB PO SCH ×2 (09:22→17:39)
[2018-08-21] MEDS: CINACALCET 30 MG TAB PO SCH ×2 (09:23→20:33)
--- NOTE | 2018-08-21 09:35 | P.PN ---
Subjective Progress Note Date: 08/21/18 Principal diagnosis: Non-ST elevation myocardial infarction, symptomatic multivessel coronary artery disease with left main disease, acute on chronic diastolic heart failure, chron ic atrial fibrillation, history of coronary artery disease with previous stent placement 2003, hypertension, hyperlipidemia, morbid obesity, peripheral vascular disease, bilateral carotid artery stenosis with totally occluded right ICA and left ICA with 80% stenosis, previous tobacco dependence, severe restrictive lung disease with preoperative FEV1 47% of predicted, chronic normocytic anemia, and osteoarthritis. The patient is currently sitting up in a recliner in no acute distress. Denies any chest pain. Denies shortness of breath while sitting in her recliner, she does admit to short of breath with walking. She appears quite irritated that her breakfast is being interrupted and that she is being asked to use her incentive spirometry. She has no new questions at this time. Objective - Vital Signs Vital signs: Vital Signs Temp 98.3 F 08/21/18 04:00 Pulse 73 08/21/18 04:00 Resp 22 08/21/18 04:00 BP 99/48 08/21/18 04:00 Pulse Ox 92 L 08/21/18 04:00 Intake & Output 08/20/18 08/21/18 08/21/18 18:59 06:59 18:59 Intake Total 544.999 100 Output Total 921 700 Balance -376.001 -600 Intake: IV 350 100 Sodium Chloride 0.9% 1, 350 100 000 ml @ 50 mls/hr IV . Q20H [facility] Rx#:[id number] Intake, IV Titration 194.999 Amount Heparin Sod,Pork in 0.45% 194.999 NaCl 25,000 unit In 0.45 % NaCl 1 250ml.bag @ 8 UNITS/KG/HR 9.968 mls/hr IV .Q24H [facility] Rx#: [id number] Output: Urine 920 700 Stool 1 Other: Voiding Method Bedside Commode Bedside Commode # Voids 1 2 # Bowel Movements 1 1 - Constitutional General appearance: Present: cooperative, morbidly obese, no acute distress - Respiratory Details: Lungs sounds clear but diminished bilaterally. Respirations even, nonlabored. Currently on room air with oxygen saturation 92%. Only able to achieve 1000 mL on her incentive spirometry. Strong cough. - Cardiovascular Details: S1, S2 present. Irregular rate and rhythm, controlled atrial fibrillation on telemetry. Palpable peripheral pulses bilaterally. Bilateral lower extremity edema present. SCDs present. - Gastrointestinal Gastrointestinal Comment(s): Abdomen soft, nontender, nondistended. Active bowel sounds 4 quadrants. Tolerating diet. - Genitourinary Genitourinary Comment(s): Continues to void. - Integumentary Integumentary Comment(s): Skin is warm and dry. Bilateral lower extremities dry and scaly. - Neurologic Neurologic: Present: CNII-XII intact - Musculoskeletal Musculoskeletal: Present: gait normal, strength equal bilaterally - Psychiatric Psychiatric: Present: A&O x's 3, intact judgment & insight - Allied health notes Allied health notes reviewed: nursing - Labs CBC & Chem 7: 08/21/18 05:36 08/21/18 05:36 Labs: Abnormal Lab Results - Last 24 Hours (Table) 08/20/18 08/21/18 08/21/18 Range/Units 14:35 05:36 05:36 RBC 3.08 L (3.80-5.40) m/uL Hgb 9.5 L (11.4-16.0) gm/dL Hct 29.2 L (34.0-46.0) % RDW 16.4 H (11.5-15.5) % Plt Count 143 L (150-450) k/uL APTT 57.0 H 41.8 H (22.0-30.0) sec Assessment and Plan Assessment: 1. Non-ST elevation myocardial infarction 2. Symptomatic multivessel coronary artery disease with left main disease 3. Acute on chronic diastolic heart failure 4. Chronic atrial fibrillation on Eliquis at home for anticoagulation 5. History of coronary artery disease with previous stent placement in 2003 6. Hypertension 7. Hyperlipidemia 8. Morbid obesity 9. Peripheral vascular disease 10. Bilateral carotid artery stenosis with totally occluded right ICA and a left ICA with 80% stenosis 11. Previous tobacco dependence 12. Severe restrictive lung disease with preoperative FEV1 47% of predicted 13. Chronic normocytic anemia 14. Osteoarthritis Plan: 1. Continue to maximize medical therapy with aspirin, statin, beta louann therapy. Continue Bumex, IV heparin. 2. Encourage incentive spirometry use 10 times every hour while awake. 3. Increase activity ambulate as tolerated. PT/OT following. 4. Reinforce preoperative teaching. 5. Plan is for off-pump myocardial revascularization with left internal mammary artery and endoscopic vein harvest, possible modified Gomes maze procedure on 08/23/[address] Palm. 6. STS risk score was calculated, patient is high risk, this was discussed with the patient. 7. 5 m walk test was completed yesterday. 8. Encourage continued smoking cessation. 9. GI prophylaxis with Protonix, DVT prophylaxis with IV heparin, SCDs. 10. Stool sample sent for C. diff, results negative. 11. Medical management of other comorbid conditions per primary care service, cardiology. 12. More recommendations to follow based on patient's clinical course. Time with Patient: Greater than 30
--- NOTE | 2018-08-21 10:52 | CONS ---
CONSULTATION Ekaterina is admitted to hospital with non ST-segment elevation IA. Underwent cardiac catheterization, is awaiting bypass surgery for left main stenosis. She is doing well and is free of symptoms. Currently on IV heparin, tolerating it well. PHYSICAL EXAMINATION: On exam, comfortable at rest. Vital signs are stable. There is no jugular venous distention. Chest exam reveals good air entry bilaterally. Heart exam reveals first and second heart sounds. No gallop. No murmur. Abdomen is soft. Extremities did not reveal any edema. LABS: Show potassium 4.8, creatinine is 0.69, hemoglobin is 9.5, platelet count is 143. ASSESSMENT: 1. Left main stenosis. 2. Severe carotid stenosis. PLAN: Patient will continue current medications. Awaiting bypass surgery on Sunday. MMODL / IJN: [id number] /
--- NOTE | 2018-08-21 11:56 | P.PN ---
Subjective Progress Note Date: 08/21/18 Principal diagnosis: Multivessel coronary artery disease, acute non-ST elevation myocardial infarction 67-year-old female patient with known history of chronic atrial fibrillation, coronary artery disease with previous coronary intervention and stenting back in 2003, hypertension and hyperlipidemia and CHF with diastolic heart failure and an ejection fraction of 50%. The patient is a chronic ex-smoker and she has quit smoking in March 2018 and she was peripheral artery disease and chronic osteoarthritis and she is obese with a BMI of 53.6. The patient was recently admitted to the hospital on 08/03/2018 for symptoms of worsening shortness of breath and lightheadedness. During the admission the patient abnormal troponins. The patient back then diffuse cardiac catheterization and she went home. She came back to the emergency department on 08/15/2018 with progressive dyspnea and lower extremity swelling. At that time she was seen by cardiology. EKG showed atrial fibrillation controlled rate. The patient had a normal kidney function. The patient underwent a cardiac catheterization and showed 80% stenosis in the left main, 70% stenosis of diagonal artery, 80% stenosis of the proximal circumflex artery, totally occluded RCA with collaterals from the left system. The patient is currently in the intensive care unit. She is on IV heparin. The patient will be seen by cardiothoracic surgery team for a surgical evaluation and recommendations for revascularization surgery. Her chest x-ray showing some limited scarring in segment V changes in lung bases bilaterally. There is also some mild cardiomegaly. The patient is currently on Bumex 1 mg twice a day. The patient is also on aspirin, IV heparin, lisinopril 2.5 mg by mouth daily Coreg 3.125 mg by mouth twice a day. On today's evaluation of 08/18/2018 the patient is hemodynamically stable, co mfortable free of any chest pain and free of any shortness of breath. She is still awaiting cardiac bypass surgery. Based on our calculation, her surgical risk is in the order of 11% mortality. The patient's FEV1 is normal at of 47% of predicted and this is consistent with restrictive lung disease due to obesity. She also has bilateral carotid artery stenosis on the Dopplers and the patient would have a CT angios of the neck. The patient has significant plaquing in the internal carotid artery on the left in the order of 70%. There is also bilateral external carotid artery disease in the order of 50-70%. The patient is currently on IV heparin. She is also on Bumex 1 mg twice a day. No angina. No other complaints otherwise for now. Reevaluated today on 08/19/2018, patient remains in the ICU, comfortable, denies any chest pain, denies any shortness of breath. Patient is being considered for myocardial revascularization, she was already cleared by surgery by Dr. Banerjee, FEV1 was noted to be at 47% of the predicted value, she has restrictive lung disease secondary to obesity. And she was found to have bilateral carotid artery disease on Doppler and on CT angiogram of the neck showing 80% stenosis of proximal left internal carotid artery, occlusion of the right internal carotid artery at its origin. Patient is not requiring any pressors at this point, she is hemodynamically stable, and again she is asymptomatic O2 sat is 94% on 2 L nasal cannula, doing great with incentive spirometry. Remains on heparin drip for atrial fibrillation, CBC showed a hemoglobin of 7.8 WBC count is 7.6, electrolytes are normal renal profile is normal. Patient was seen today on 08/20/2018, remains in the intensive care unit, but she is being transferred to a monitor bed on selective. She is asymptomatic, in no distress, no cough no wheezing no shortness of breath no chest pain, she is hemodynamically stable, O2 saturations 97% on room air, doing extremely well with incentive spirometry, she had some loose stools last night, her labs this morning are relatively unremarkable, remains on heparin drip for atrial fibrillation, and my understanding is her surgery is scheduled in the next 3 days. Reevaluated today on , patient is doing well, asymptomatic, scheduled to undergo myocardial revascularization in 2 days. No cough no wheezing no fever no chills no hemoptysis. Presently and a recliner, asymptomatic. Compliant with incentive spirometry, CBC is relatively normal hemoglobin is 9.5, electrode are normal. Objective - Vital Signs Vital signs: Vital Signs Temp 98.3 F 08/21/18 04:00 Pulse 73 08/21/18 04:00 Resp 22 08/21/18 04:00 BP 99/48 08/21/18 04:00 Pulse Ox 92 L 08/21/18 04:00 Intake & Output 08/20/18 08/21/18 08/21/18 18:59 06:59 18:59 Intake Total 544.999 100 Output Total 921 700 Balance -376.001 -600 Weight 125.1 kg Intake: IV 350 100 Sodium Chloride 0.9% 1, 350 100 000 ml @ 50 mls/hr IV . Q20H JUANJOSE Rx#:[id number] Intake, IV Titration 194.999 Amount Heparin Sod,Pork in 0.45% 194.999 NaCl 25,000 unit In 0.45 % NaCl 1 250ml.bag @ 8 UNITS/KG/HR 9.968 mls/hr IV .Q24H JUANJOSE Rx#: [id number] Output: Urine 920 700 Stool 1 Other: Voiding Method Bedside Commode Bedside Commode # Voids 1 2 # Bowel Movements 1 1 - Exam Physical Exam: Revealed 67-year-old female, obese, pleasant, in no distress. On room air Head: Atraumatic, normocephalic. HEENT:[Neck is supple.] [No neck masses.] [No thyromegaly.] [No JVD.] PERRLA, EOMI, no icterus. Chest: [Clear throughout, diminished breath sounds at the bases. no crackles, no rhonchi, no wheezes.] Cardiac Exam: [Normal S1 and S2, no S3 gallop, no murmur.] Abdomen: [Soft, nontender, no megaly, no rebound, no guarding, normal bowel sounds.] Extremities: [No clubbing, chronic skin changes noted in lower extremities secondary to venous stasis changes. Neurological Exam: [No focal neurologic deficit. Alert oriented 3. Psychiatric: Normal mood, affect and mental status examination. Lymphatics: No lymphadenopathy. Musculoskeletal: No deformities and no limitation in range of motion.] - Labs CBC & Chem 7: 08/21/18 05:36 08/21/18 05:36 Labs: Abnormal Lab Results - Last 24 Hours (Table) 08/20/18 08/21/18 08/21/18 Range/Units 14:35 05:36 05:36 RBC 3.08 L (3.80-5.40) m/uL Hgb 9.5 L (11.4-16.0) gm/dL Hct 29.2 L (34.0-46.0) % RDW 16.4 H (11.5-15.5) % Plt Count 143 L (150-450) k/uL APTT 57.0 H 41.8 H (22.0-30.0) sec Assessment and Plan Assessment: Impression: 1 acute non-ST elevation myocardial infarction 2 severe obstructive and restrictive lung disease 3 symptomatic multivessel coronary artery disease 4 benign essential hypertension 5 chronic atrial fibrillation 6 morbid obesity 7 carotid artery disease 8 chronic venous insufficiency 9 history of smoking, quit in March of 2018. 10 chronic anemia 11 peripheral vessel occlusive disease, involving both lower extremities. Recommendation: Continue to maximize medical therapy, including aspirin statins and beta blockers RASHAAD inhibitor's. Continue incentive spirometry, continue heparin drip, continue diuretics, ambulate as tolerated, continue GI and DVT prophylaxis, patient may require myocardial revascularization in the next few days, she is relatively moderate to high operative risk. We'll continue to follow patient will be scheduled for myocardial revascularization surgery with MURDOCK and endoscopic vein harvesting possible maze procedure on 08/23/2018, and this will be done by Dr. Palm, patient was advised to ambulate more often, and we will see her after her CABG on Sunday. Time with Patient: Less than 30
--- NOTE | 2018-08-21 12:55 | P.VSCSTY ---
Greater Saphenous Vein Mapping This is bilateral lower extremity greater saphenous vein mapping. Date of service 08/17/2018 Vein quality and ultrasound appearance we see no intraluminal thrombus or wall changes. Vein size groin right 6.0 x 6.7 groin left 6.6 x 5.3 High thigh right 4.2 x 4.1 high thigh left 4.5 x 5.0 Mid thigh right 3.9 x 3.5 mid thigh left 3.8 x 3.8 Above-knee right 4.0 x 4.4 above-knee left 3.0 x 3.9 Below knee right 2.3 x 3.3 below-knee left 1.4 x 2.3 Mid calf right to 2.6 x 3.1 mid calf left 1.6 x 2.1 Ankle right 2.5 x 3.2 ankle left 2.2 x 3.0 Impression usable greater saphenous vein throughout the right leg and at the knee and above on the left leg. Left lower leg probably too small for use as conduit..
--- NOTE | 2018-08-21 12:57 | P.ARTDOP ---
Arterial Doppler LOWER EXTREMITY ARTERIAL DOPPLER: DATE OF SERVICE: 08/18/2018 Reason for study: Preop CABG. Doppler waveforms: Atypical bilaterally throughout. Pulse volume recording: []. Pressure gradients: Bilaterally above the ankle. Ankle-brachial indices: 0.86 bilaterally. Toe pressures: [] on the right, [] on the left Impression: Suspect mild bilateral fem-pop disease. Cannot exclude iliac component..
[2018-08-21] MEDS: HEPARIN SOD,PORK IN 0.45% NACL 25,000 UNIT in 0.45% NACL 1 250ML.BAG IV SCH ×2 (14:21→17:17)
[2018-08-21] MEDS: ACETAMINOPHEN TAB 325 MG TAB PO PRN (17:14)
[2018-08-21] MEDS: ATORVASTATIN 80 MG TAB PO SCH (20:33)
[2018-08-21] MEDS: HEPARIN SODIUM,PORCINE 5,000 UNIT/ML 1 ML VIAL IV PRN (21:55)
--- NOTE | 2018-08-21 23:40 | PN ---
PROGRESS NOTE DATE OF SERVICE: August 21, 2018. PRESENTING COMPLAINT: Tired. INTERVAL HISTORY: Patient admitted with CHF exacerbation and had an acute non-Q-wave myocardial infarction. Today patient remains sitting up, tolerating a diet. Blood pressure is running a bit on the lower side. Remains on IV heparin pending coronary bypass this coming Sunday. REVIEW OF SYSTEMS: Done for constitutional, cardiovascular, GI, pulmonary; relevant findings as above. CURRENT MEDICATIONS: Reviewed. PHYSICAL EXAMINATION: VITAL SIGNS: Temperature 98, pulse 79, respiratory rate 14, blood pressure 118/55. Pulse ox 96% on room air. GENERAL APPEARANCE: Sitting up in a chair, awake. Comfortable. EYES: Pupils are equal. Conjunctivae normal. NECK: JVD not raised. Mass not palpable. RESPIRATORY: Effort increased. LUNGS: Decreased breath sounds. CARDIOVASCULAR: Heart sounds irregular. Minimal edema. ABDOMEN: Soft, nontender. Liver and spleen not palpable. PSYCHIATRY: Alert and oriented x3. Mood and affect normal. INVESTIGATIONS: White count 8.5, hemoglobin 9.5, potassium 4.8. BUN creatinine is normal. ASSESSMENT: 1. Severe coronary artery disease following cardiac catheterization pending coronary bypass this coming Sunday. 2. Acute on chronic congestive heart failure exacerbation from diastolic systolic and systolic dysfunction EF 35-40 percent now stabilized. 3. Hypertensive heart disease. 4. Persistent atrial fibrillation chronically. 5. Currently on IV heparin. 6. Essential hypertension. 7. Primary osteoarthritis. 8. Complete occlusion of the right internal carotid artery, 90% left internal carotid artery. 9. Acute non-ST elevation myocardial infarction, POA. 10.Severe obstructive and restrictive lung disease in a recent smoker. 11.Peripheral artery disease. 12.Chronic venous insufficiency lower extremity. 13.IV heparin monitoring. PLAN: Care was discussed with the patient. Patient stable awaiting coronary bypass. MMODL / IJN: [id number] /
--- NOTE | 2018-08-21 23:40 | PN ---
PROGRESS NOTE ADDENDUM: DATE OF SERVICE: 08/20/2018 Progress note dictated on August 20, 2018 at 19:07, date of service is 08/20/18. MMLIANNAL / ANITAN: [id number] /
[2018-08-22] MEDS: ACETAMINOPHEN TAB 325 MG TAB PO PRN (02:22)
[2018-08-22 04:46] LABS: Anisocytosis Slight; Basophils % (A) 0 %; Eosinophils # (A) 0.2 k/uL (0-0.7); Eosinophils % (A) 2 %; Hypochromasia Slight; Lymphocytes # (A) 1.2 k/uL (1.0-4.8); Lymphocytes % (A) 13 %; MCH 29.8 pg (25.0-35.0); MCHC 31.6 g/dL (31.0-37.0); MCV 94.1 fL (80.0-100.0); Mean Platelet Volume 9.7; Monocytes # (A) 0.4 k/uL (0-1.0); Monocytes % (A) 5 %; Neutrophils # (A) 6.8 k/uL (1.3-7.7); Neutrophils % (A) 79 %; Platelet Count 165 k/uL (150-450); RBC 2.66 m/uL (3.80-5.40); RDW 16.2 % (11.5-15.5); WBC 8.7 k/uL (3.8-10.6)
[2018-08-22 04:57] LABS: HGB 7.9 gm/dL (11.4-16.0)
[2018-08-22 05:55] LABS: ALT 29 U/L (9-52); AST 23 U/L (14-36); Albumin 3.3 g/dL (3.5-5.0); Alkaline Phosphatase 116 U/L (38-126); Anion Gap 8 mmol/L; Blood Urea Nitrogen 18 mg/dL (7-17); Calcium 9.5 mg/dL (8.4-10.2); Carbon Dioxide 23 mmol/L (22-30); Chloride 105 mmol/L (98-107); Glucose 98 mg/dL (74-99); Magnesium 1.8 mg/dL (1.6-2.3); Phosphorus 2.7 mg/dL (2.5-4.5); Sodium 136 mmol/L (137-145); Total Bilirubin 0.8 mg/dL (0.2-1.3); Total Protein 6.1 g/dL (6.3-8.2)
[2018-08-22] MEDS: MAGNESIUM SULFATE-D5W PMX 1 GM in DEXTROSE/WATER 1 100ML.BAG IVPB SCH ×2 (06:27→08:16)
--- NOTE | 2018-08-22 08:01 | P.PN ---
Subjective Progress Note Date: 08/22/18 Principal diagnosis: Non-ST elevation myocardial infarction, symptomatic multivessel coronary artery disease with left main disease, acute on chronic diastolic heart failure, chron ic atrial fibrillation, history of coronary artery disease with previous stent placement 2003, hypertension, hyperlipidemia, morbid obesity, peripheral vascular disease, bilateral carotid artery stenosis with totally occluded right ICA and left ICA with 80% stenosis, previous tobacco dependence, severe restrictive lung disease with preoperative FEV1 47% of predicted, chronic normocytic anemia, and osteoarthritis. The patient is currently sitting up in a recliner in no acute distress. Denies any chest pain. Denies shortness of breath while sitting in her recliner, she does admit to short of breath with walking. She is in good spirits with no new questions. She ambulated in the hallway 3 times yesterday and is actively using incentive spirometry. Her hemoglobin dropped from 9.5 to 7.9, however trending of her hemoglobin demonstrates 7.8-8.5. She states she has hemorrhoids and did see bright red blood in her stool. She is currently on IV heparin, stool for occult blood was negative on 08/18/18. Objective - Vital Signs Vital signs: Vital Signs Temp 97.6 F 08/22/18 04:00 Pulse 65 08/22/18 07:00 Resp 16 08/22/18 04:00 BP 117/53 08/22/18 07:00 Pulse Ox 96 08/22/18 07:00 Intake & Output 08/21/18 08/22/18 08/22/18 18:59 06:59 18:59 Intake Total 162.359 6972.207 0 Balance 693.986 2186.207 0 Weight 125.1 kg 121.7 kg Intake: IV 100 160 Sodium Chloride 0.9% 1, 100 160 000 ml @ 50 mls/hr IV . Q20H JUANJOSE Rx#:[id number] Intake, IV Titration 95.205 195.207 0 Amount Heparin Sod,Pork in 0.45% 95.205 195.207 0 NaCl 25,000 unit In 0.45 % NaCl 1 250ml.bag @ 8 UNITS/KG/HR 9.968 mls/hr IV .Q24H JUANJOSE Rx#: [id number] Oral 500 1800 Other: Voiding Method Bedside Commode Bedside Commode # Voids 2 1 # Bowel Movements 1 1 - Constitutional General appearance: Present: cooperative, no acute distress, obese - Respiratory Details: Lungs sounds clear but diminished bilaterally. Respirations even, nonlabored. Currently on room air with oxygen saturation 96%. Able to achieve 1500 mL on her incentive spirometry. Strong cough. - Cardiovascular Details: S1, S2 present. Irregular rate and rhythm, controlled atrial fibrillation on telemetry. Palpable peripheral pulses bilaterally. Bilateral lower extremity edema present. SCDs present. - Gastrointestinal Gastrointestinal Comment(s): Abdomen soft, nontender, nondistended. Active bowel sounds 4 quadrants. Tolerating diet. - Genitourinary Genitourinary Comment(s): Continues to void. - Integumentary Integumentary Comment(s): Skin is warm and dry. Bilateral lower extremities dry and scaly. - Neurologic Neurologic: Present: CNII-XII intact - Musculoskeletal Musculoskeletal: Present: gait normal, generalized weakness, strength equal bilaterally - Psychiatric Psychiatric: Present: A&O x's 3, appropriate affect, intact judgment & insight - Allied health notes Allied health notes reviewed: nursing - Labs CBC & Chem 7: 08/22/18 04:15 08/22/18 04:15 Labs: Abnormal Lab Results - Last 24 Hours (Table) 08/21/18 08/21/18 08/22/18 Range/Units 13:35 20:48 04:15 RBC 2.66 L (3.80-5.40) m/uL Hgb 7.9 L D (11.4-16.0) gm/dL Hct 25.0 L (34.0-46.0) % RDW 16.2 H (11.5-15.5) % APTT 41.1 H 44.2 H (22.0-30.0) sec Sodium (137-145) mmol/L BUN (7-17) mg/dL Total Protein (6.3-8.2) g/dL Albumin (3.5-5.0) g/dL 08/22/18 08/22/18 Range/Units 04:15 04:15 RBC (3.80-5.40) m/uL Hgb (11.4-16.0) gm/dL Hct (34.0-46.0) % RDW (11.5-15.5) % APTT 197.7 H* (22.0-30.0) sec Sodium 136 L (137-145) mmol/L BUN 18 H (7-17) mg/dL Total Protein 6.1 L (6.3-8.2) g/dL Albumin 3.3 L (3.5-5.0) g/dL Assessment and Plan Assessment: 1. Non-ST elevation myocardial infarction 2. Symptomatic multivessel coronary artery disease with left main disease 3. Acute on chronic diastolic heart failure 4. Chronic atrial fibrillation on Eliquis at home for anticoagulation 5. History of coronary artery disease with previous stent placement in 2003 6. Hypertension 7. Hyperlipidemia 8. Morbid obesity 9. Peripheral vascular disease 10. Bilateral carotid artery stenosis with totally occluded right ICA and a left ICA with 80% stenosis 11. Previous tobacco dependence 12. Severe restrictive lung disease with preoperative FEV1 47% of predicted 13. Chronic normocytic anemia 14. Osteoarthritis Plan: 1. Continue to maximize medical therapy with aspirin, statin, beta louann therapy. Continue Bumex, IV heparin. Continue to hold Eliquis. 2. Encourage incentive spirometry use 10 times every hour while awake. 3. Increase activity, ambulate as tolerated. PT/OT following. 4. Reinforce preoperative teaching. 5. Plan is for off-pump myocardial revascularization with left internal mammary artery and endoscopic vein harvest, possible modified Gomes maze procedure robert brand, 08/23/[address] Palm. Nothing to eat or drink after midnight. 6. STS risk score was calculated, patient is high risk, this was discussed with the patient. 7. 5 m walk test was completed. 8. Encourage continued smoking cessation. 9. GI prophylaxis with Protonix, DVT prophylaxis with IV heparin, SCDs. 10. Stool sample sent for C. diff, results negative. 11. Will re-draw hemaglobin in 6 hours with next PTT, will send second stool sample for occult blood. 12. Medical management of other comorbid conditions per primary care service, cardiology. 13. More recommendations to follow based on patient's clinical course. Time with Patient: Greater than 30
[2018-08-22] MEDS: SYMBICORT 160-4.5 MCG INHALER INHALATION SCH ×2 (08:14→20:32)
[2018-08-22] MEDS: ASPIRIN 81 MG PO SCH (08:18)
[2018-08-22] MEDS: CARVEDILOL 3.125 MG TAB PO SCH ×2 (08:18→17:00)
[2018-08-22] MEDS: CINACALCET 30 MG TAB PO SCH ×2 (08:19→20:57)
[2018-08-22] MEDS: BUMETANIDE 1 MG TAB PO SCH ×2 (08:19→17:00)
[2018-08-22] MEDS: MUPIROCIN 2% OINT 22 GM TUBE NASAL SCH ×2 (08:21→20:55)
[2018-08-22] MEDS: PANTOPRAZOLE 40 MG TABLET PO SCH (08:23)
[2018-08-22] MEDS: NITROGLYCERIN OINT 1 INCH/GM PACKET TOPICAL SCH ×2 (08:23→17:00)
--- NOTE | 2018-08-22 12:29 | P.PN ---
Subjective Progress Note Date: 08/22/18 Principal diagnosis: Multivessel coronary artery disease, acute non-ST elevation myocardial infarction 67-year-old female patient with known history of chronic atrial fibrillation, coronary artery disease with previous coronary intervention and stenting back in 2003, hypertension and hyperlipidemia and CHF with diastolic heart failure and an ejection fraction of 50%. The patient is a chronic ex-smoker and she has quit smoking in March 2018 and she was peripheral artery disease and chronic osteoarthritis and she is obese with a BMI of 53.6. The patient was recently admitted to the hospital on 08/03/2018 for symptoms of worsening shortness of breath and lightheadedness. During the admission the patient abnormal troponins. The patient back then diffuse cardiac catheterization and she went home. She came back to the emergency department on 08/15/2018 with progressive dyspnea and lower extremity swelling. At that time she was seen by cardiology. EKG showed atrial fibrillation controlled rate. The patient had a normal kidney function. The patient underwent a cardiac catheterization and showed 80% stenosis in the left main, 70% stenosis of diagonal artery, 80% stenosis of the proximal circumflex artery, totally occluded RCA with collaterals from the left system. The patient is currently in the intensive care unit. She is on IV heparin. The patient will be seen by cardiothoracic surgery team for a surgical evaluation and recommendations for revascularization surgery. Her chest x-ray showing some limited scarring in segment V changes in lung bases bilaterally. There is also some mild cardiomegaly. The patient is currently on Bumex 1 mg twice a day. The patient is also on aspirin, IV heparin, lisinopril 2.5 mg by mouth daily Coreg 3.125 mg by mouth twice a day. On today's evaluation of 08/18/2018 the patient is hemodynamically stable, co mfortable free of any chest pain and free of any shortness of breath. She is still awaiting cardiac bypass surgery. Based on our calculation, her surgical risk is in the order of 11% mortality. The patient's FEV1 is normal at of 47% of predicted and this is consistent with restrictive lung disease due to obesity. She also has bilateral carotid artery stenosis on the Dopplers and the patient would have a CT angios of the neck. The patient has significant plaquing in the internal carotid artery on the left in the order of 70%. There is also bilateral external carotid artery disease in the order of 50-70%. The patient is currently on IV heparin. She is also on Bumex 1 mg twice a day. No angina. No other complaints otherwise for now. Reevaluated today on 08/19/2018, patient remains in the ICU, comfortable, denies any chest pain, denies any shortness of breath. Patient is being considered for myocardial revascularization, she was already cleared by surgery by Dr. Banerjee, FEV1 was noted to be at 47% of the predicted value, she has restrictive lung disease secondary to obesity. And she was found to have bilateral carotid artery disease on Doppler and on CT angiogram of the neck showing 80% stenosis of proximal left internal carotid artery, occlusion of the right internal carotid artery at its origin. Patient is not requiring any pressors at this point, she is hemodynamically stable, and again she is asymptomatic O2 sat is 94% on 2 L nasal cannula, doing great with incentive spirometry. Remains on heparin drip for atrial fibrillation, CBC showed a hemoglobin of 7.8 WBC count is 7.6, electrolytes are normal renal profile is normal. Patient was seen today on 08/20/2018, remains in the intensive care unit, but she is being transferred to a monitor bed on selective. She is asymptomatic, in no distress, no cough no wheezing no shortness of breath no chest pain, she is hemodynamically stable, O2 saturations 97% on room air, doing extremely well with incentive spirometry, she had some loose stools last night, her labs this morning are relatively unremarkable, remains on heparin drip for atrial fibrillation, and my understanding is her surgery is scheduled in the next 3 days. Reevaluated today on 08/21/2018, patient is doing well, asymptomatic, scheduled to undergo myocardial revascularization in 2 days. No cough no wheezing no fever no chills no hemoptysis. Presently and a recliner, asymptomatic. Compliant with incentive spirometry, CBC is relatively normal hemoglobin is 9.5, electrode are normal. Reevaluated today on 08/22/2018, patient remains in the ICU, she is an overflow from the cardiac floor. Scheduled to undergo myocardial revascularization tomorrow. Patient is doing well with incentive spirometry, presently on room air, ambulatory, in no distress. CBC is relatively normal hemoglobin is 7.9 electrolytes and renal profile are normal. Patient remains on heparin, stool for occult blood was negative on 08/18. Had previous history of hemorrhoids Objective - Vital Signs Vital signs: Vital Signs Temp 97.6 F 08/22/18 12:00 Pulse 65 08/22/18 12:00 Resp 19 08/22/18 12:00 BP 128/57 08/22/18 12:00 Pulse Ox 94 L 08/22/18 12:00 Intake & Output 08/21/18 08/22/18 08/22/18 18:59 06:59 18:59 Intake Total 049.780 6590.207 0 Output Total 601 Balance 117.653 1998.207 -601 Weight 125.1 kg 121.7 kg Intake: IV 100 160 Sodium Chloride 0.9% 1, 100 160 000 ml @ 50 mls/hr IV . Q20H JUANJOSE Rx#:[id number] Intake, IV Titration 95.205 195.207 0 Amount Heparin Sod,Pork in 0.45% 95.205 195.207 0 NaCl 25,000 unit In 0.45 % NaCl 1 250ml.bag @ 8 UNITS/KG/HR 9.968 mls/hr IV .Q24H JUANJOSE Rx#: [id number] Oral 500 1800 Output: Urine 600 Stool 1 Other: Voiding Method Bedside Commode Bedside Commode Bedside Commode # Voids 2 1 1 # Bowel Movements 1 1 - Exam Physical Exam: Revealed 67-year-old female, obese, pleasant, in no distress. On room air Head: Atraumatic, normocephalic. HEENT:[Neck is supple.] [No neck masses.] [No thyromegaly.] [No JVD.] PERRLA, EOMI, no icterus. Chest: [Clear throughout, diminished breath sounds at the bases. no crackles, no rhonchi, no wheezes.] Cardiac Exam: [Normal S1 and S2, no S3 gallop, no murmur.] Abdomen: [Soft, nontender, no megaly, no rebound, no guarding, normal bowel sounds.] Extremities: [No clubbing, chronic skin changes noted in lower extremities secondary to venous stasis changes. Neurological Exam: [No focal neurologic deficit. Alert oriented 3. Psychiatric: Normal mood, affect and mental status examination. Lymphatics: No lymphadenopathy. Musculoskeletal: No deformities and no limitation in range of motion.] - Labs CBC & Chem 7: 08/22/18 04:15 08/22/18 04:15 Labs: Abnormal Lab Results - Last 24 Hours (Table) 08/21/18 08/21/18 08/22/18 Range/Units 13:35 20:48 04:15 RBC (3.80-5.40) m/uL Hgb (11.4-16.0) gm/dL Hct (34.0-46.0) % RDW (11.5-15.5) % APTT 41.1 H 44.2 H (22.0-30.0) sec Sodium (137-145) mmol/L BUN (7-17) mg/dL Total Protein (6.3-8.2) g/dL Albumin (3.5-5.0) g/dL Crossmatch See Detail 08/22/18 08/22/18 08/22/18 Range/Units 04:15 04:15 04:15 RBC 2.66 L (3.80-5.40) m/uL Hgb 7.9 L D (11.4-16.0) gm/dL Hct 25.0 L (34.0-46.0) % RDW 16.2 H (11.5-15.5) % APTT 197.7 H* (22.0-30.0) sec Sodium 136 L (137-145) mmol/L BUN 18 H (7-17) mg/dL Total Protein 6.1 L (6.3-8.2) g/dL Albumin 3.3 L (3.5-5.0) g/dL Crossmatch Assessment and Plan Assessment: Impression: 1 acute non-ST elevation myocardial infarction 2 severe obstructive and restrictive lung disease 3 symptomatic multivessel coronary artery disease 4 benign essential hypertension 5 chronic atrial fibrillation 6 morbid obesity 7 carotid artery disease 8 chronic venous insufficiency 9 history of smoking, quit in March of 2018. 10 chronic anemia 11 peripheral vessel occlusive disease, involving both lower extremities. Recommendation: Continue treatment plan as outlined previously including cardiac meds/statins and beta blockers RASHAAD inhibitor's aspirin, continue incentive spirometry, continue ambulation, scheduled for myocardial revascularization tomorrow. Time with Patient: Less than 30
[2018-08-22 13:23] LABS: Anisocytosis Slight; Basophils % (A) 1 %; Eosinophils # (A) 0.2 k/uL (0-0.7); Eosinophils % (A) 2 %; HCT 27.5 % (34.0-46.0); HGB 8.7 gm/dL (11.4-16.0); Hypochromasia Moderate; Lymphocytes # (A) 1.2 k/uL (1.0-4.8); Lymphocytes % (A) 13 %; MCH 30.7 pg (25.0-35.0); MCHC 31.8 g/dL (31.0-37.0); MCV 96.4 fL (80.0-100.0); Mean Platelet Volume 10.3; Monocytes # (A) 0.4 k/uL (0-1.0); Monocytes % (A) 5 %; Neutrophils # (A) 7.5 k/uL (1.3-7.7); Neutrophils % (A) 79 %; Platelet Count 180 k/uL (150-450); RBC 2.85 m/uL (3.80-5.40); RDW 16.1 % (11.5-15.5); WBC 9.5 k/uL (3.8-10.6)
[2018-08-22] MEDS: LISINOPRIL 2.5 MG TAB PO SCH (14:55)
[2018-08-22] MEDS: SENNOSIDES-DOCUSATE SODIUM 1 EACH TAB PO SCH ×2 (16:26→16:59)
--- NOTE | 2018-08-22 18:47 | PN ---
PROGRESS NOTE Ekaterina Carcamo is a 67-year-old lady who was admitted to hospital with congestive heart failure and elevated troponin, underwent cardiac catheterization and will have bypass surgery tomorrow. The patient is on aspirin, Lipitor, Bumex, Coreg, and Zestril. On exam, patient is comfortable at rest. Vital signs are stable. Chest exam reveals good air entry bilaterally. Heart exam reveals first and second heart sounds. No gallop. No murmur. Abdomen is soft. Exam of the extremities did not reveal any edema. Peripheral pulses are felt. Labs show that the potassium is 4. Creatinine is 0.7 hemoglobin is 8. ASSESSMENT: Severe left main stenosis. PLAN: The patient will undergo bypass surgery tomorrow. MMODL / IJN: [id number] /
[2018-08-22] MEDS: ATORVASTATIN 80 MG TAB PO SCH (20:57)
--- NOTE | 2018-08-22 23:11 | PN ---
PROGRESS NOTE DATE OF SERVICE: August 22, 2018. PRESENTING COMPLAINT: Tired. INTERVAL HISTORY: The patient presented with CHF exacerbation and non acute non-Q-wave OK. Doing well pending a coronary bypass for tomorrow. Hemoglobin is down to the 7. Was given a unit of blood today. IV heparin was held off earlier today. Otherwise, patient is stable. No chest pain or short of breath. REVIEW OF SYSTEMS: Done for constitutional, cardiovascular, GI, pulmonary and relevant findings as above. MEDICATIONS: Reviewed. PHYSICAL EXAMINATION: VITAL SIGNS: Temperature 98.2, pulse 55, respiratory rate 18, blood pressure 114/65, pulse ox 98% on room air. GENERAL APPEARANCE: Sitting up, comfortable. EYES: Pupils equal. Conjunctivae normal. NECK: JVD not raised. Mass not palpable. RESPIRATORY: Effort increased. LUNGS: Decreased breath sounds. CARDIOVASCULAR: Heart sounds irregular. Minimal edema. ABDOMEN: Soft, nontender. Liver and spleen not palpable. PSYCHIATRY: Alert and oriented x3. Mood and affect normal. INVESTIGATIONS: Repeat hemoglobin about 8.7 from 7.9, BUN 18, creatinine 0.71. ASSESSMENT: 1. Coronary artery disease pending coronary artery bypass tomorrow. 2. Acute on chronic congestive heart failure exacerbation from diastolic systolic dysfunction EF 35-40 percent from underlying coronary artery disease, stabilized. 3. Hypertensive heart disease. 4. Persistent atrial fibrillation, chronic. 5. Essential hypertension. 6. Primary osteoarthritis. 7. Complete occlusion of right internal carotid artery, 90% left internal carotid artery. 8. Acute non-ST elevation myocardial infarction, POA. 9. Severe obstructive restrictive lung disease/chronic obstructive pulmonary disease in recent smoker. 10.Peripheral artery disease. 11.Chronic venous insufficiency lower extremities. 12.IV heparin, now discontinued. PLAN: Care was discussed with the patient. Medically stable. IV heparin is discontinued. Did get a unit of blood. MMODL / IJN: [id number] /
[2018-08-23] MEDS: NITROGLYCERIN OINT 1 INCH/GM PACKET TOPICAL SCH ×2 (00:01→16:45)
[2018-08-23] MEDS: SODIUM CHLORIDE 0.9% 1,000 ML IV SCH ×2 (00:01→17:19)
[2018-08-23] MEDS ORDERED: PHENYLEPHRINE 40 MG in SODIUM CHLORIDE 0.9% 250 ML IV ONE (05:00)
[2018-08-23] MEDS ORDERED: PHENYLEPHRINE 10 MG/ML VIAL IV ONE (05:00)
[2018-08-23] MEDS ORDERED: ceFAZolin 1,000 MG in SODIUM CHLORIDE 0.9% IRRIGATIO 1,000 ML IRRIGATION ONE (05:00)
[2018-08-23] MEDS ORDERED: NOREPINEPHRINE 4 MG in SODIUM CHLORIDE 0.9% 250 ML IV SCH (05:00)
[2018-08-23] MEDS ORDERED: CHLORHEXIDINE GLUCONATE 15 ML CUP MUCOUS MEM ONE (05:00)
[2018-08-23] MEDS ORDERED: ASPIRIN 325 MG TAB PO ONE (05:00)
[2018-08-23] MEDS ORDERED: HEPARIN SODIUM,PORCINE 5,000 UNIT in SODIUM CHLORIDE 0.9% 500 ML 500 ML IV ONE (05:00)
[2018-08-23] MEDS ORDERED: PROTAMINE SULFATE 250 MG in EMPTY BAG 1 BAG IV ONE (05:00)
[2018-08-23] MEDS ORDERED: ceFAZolin 3 GM in SODIUM CHLORIDE 0.9% 30 ML IVPB ONE (05:00)
[2018-08-23] MEDS ORDERED: PROTAMINE SULFATE 10 MG/ML 25 ML VIAL IV ONE (05:00)
[2018-08-23] MEDS ORDERED: ceFAZolin 2,000 MG in SODIUM CHLORIDE 0.9% 30 ML IVPB ONE (05:00)
[2018-08-23] MEDS ORDERED: TRANEXAMIC ACID 2,000 MG in SODIUM CHLORIDE 0.9% 80 ML IV ONE (05:00)
[2018-08-23] MEDS ORDERED: ALBUMIN HUMAN 5% 500 ML in EMPTY BAG 1 BAG IVPB ONE ×6 (05:00)
[2018-08-23] MEDS ORDERED: CLEVIDIPINE BUTYRATE 25 MG in EMPTY BAG 1 BAG IV SCH (05:00)
[2018-08-23] MEDS ORDERED: MANNITOL 25% 12.5 GM/50 ML VIAL IV ONE ×2 (05:00)
[2018-08-23] MEDS ORDERED: HEPARIN SODIUM 1,000 UN/ML (10ML VL) IV ONE (05:00)
[2018-08-23] MEDS ORDERED: ATORVASTATIN 10 MG TAB PO ONE (05:00)
[2018-08-23] MEDS ORDERED: CALCIUM CHLORIDE 100 MG/ML 10 ML SYRINGE IVP ONE (05:00)
[2018-08-23] MEDS ORDERED: SODIUM BICARB 8.4% 50 ML SYR (1 MEQ/ML) IV ONE (05:00)
[2018-08-23] MEDS ORDERED: METOPROLOL TARTRATE 12.5 MG TAB PO ONE (05:00)
[2018-08-23] MEDS ORDERED: CARDIOPLEGIC SOLN (K+ 16 MEQ/L 1,000 ML with SOD BICARB SYR 8.4% (1 MEQ/ML) 20 ML, LIDO... PERFUSION NR ×3 (05:00)
[2018-08-23] MEDS ORDERED: PROPOFOL 1,000 MG in EMPTY BAG 1 BAG IV PRN (05:00)
[2018-08-23] MEDS ORDERED: MAGNESIUM SULFATE SYG 4.06 MEQ/ML SYRINGE IV ONE (05:00)
[2018-08-23] MEDS ORDERED: PAPAVERINE 360 MG in SODIUM CHLORIDE 0.9% 90 ML IV ONE (05:00)
[2018-08-23] MEDS ORDERED: NITROGLYCERIN-D5W PMX 25 MG/250 ML BTL IV ONE (05:00)
[2018-08-23] MEDS ORDERED: ALBUMIN HUMAN 25% 50 ML in EMPTY BAG 1 BAG IVPB ONE (05:00)
[2018-08-23 05:48] LABS: Glucose,Whole Blood 104 mg/dL (75-99)
[2018-08-23 07:23] LABS: Partial Thromboplastin Time 18.7 sec (22.0-30.0)
[2018-08-23] MEDS ORDERED: PROPOFOL 10 MG/ML 20 ML VIAL IV ONE (08:02)
[2018-08-23] MEDS ORDERED: HEPARIN SODIUM,PORCINE 10,000 UNIT/ML 1 ML VIAL ONE (08:02)
[2018-08-23] MEDS ORDERED: AMIODARONE 50 MG/ML 9 ML VIAL IV ONE (08:02)
[2018-08-23] MEDS ORDERED: POTASSIUM CHLORIDE OPEN HEART 20 MEQ/50 ML BAG IVPB ONE (08:02)
[2018-08-23] MEDS ORDERED: GLYCOPYRROLATE 0.2 MG/ML 2 ML VIAL ONE (08:02)
[2018-08-23] MEDS ORDERED: VECURONIUM 10 MG VIAL IV ONE (08:02)
[2018-08-23] MEDS ORDERED: PROTAMINE SULFATE 10 MG/ML 5 ML VIAL IV ONE (08:02)
[2018-08-23] MEDS ORDERED: ROCURONIUM BROMIDE 10 MG/ML 10 ML VIAL IV ONE (08:02)
[2018-08-23] MEDS ORDERED: SODIUM CHLORIDE 0.9% IRRIG 1,000 ML BTL IRRIGATION ONE (08:02)
[2018-08-23] MEDS ORDERED: fentaNYL (PF) 50 MCG/ML 50 ML VIAL ONE (08:02)
[2018-08-23] MEDS ORDERED: MIDAZOLAM 2 MG/2 ML VIAL ONE (08:02)
[2018-08-23] MEDS: SYMBICORT 160-4.5 MCG INHALER INHALATION SCH (08:33)
[2018-08-23 08:36] LABS: ABG Base Excess 1.6 mmol/L; ABG HCO3 27 mmol/L (21-25); ABG PCO2 47 mmHg (35-45); ABG PH 7.37 (7.35-7.45); ABG PO2 251 mmHg (83-108); ABG Potassium Whole Blood 3.8 mmol/L (3.4-4.5); ABG Sodium Whole Blood 139 mmol/L (135-146); ABG TCO2 29 mmol/L (19-24)
[2018-08-23 10:17] LABS: ABG Base Excess -0.8 mmol/L; ABG HCO3 24 mmol/L (21-25); ABG PCO2 36 mmHg (35-45); ABG PH 7.42 (7.35-7.45); ABG PO2 222 mmHg (83-108); ABG Potassium Whole Blood 3.8 mmol/L (3.4-4.5); ABG Sodium Whole Blood 139 mmol/L (135-146); ABG TCO2 25 mmol/L (19-24)
[2018-08-23 10:54] LABS: ABG Base Excess -1.4 mmol/L; ABG HCO3 23 mmol/L (21-25); ABG PCO2 35 mmHg (35-45); ABG PH 7.42 (7.35-7.45); ABG PO2 228 mmHg (83-108); ABG Potassium Whole Blood 3.7 mmol/L (3.4-4.5); ABG Sodium Whole Blood 138 mmol/L (135-146); ABG TCO2 24 mmol/L (19-24)
[2018-08-23 12:11] LABS: ABG HCO3 20 mmol/L (21-25); ABG Oxygen Saturation 98.4 % (94-97); ABG PCO2 37 mmHg (35-45); ABG PH 7.34 (7.35-7.45); ABG PO2 99 mmHg (83-108); ABG Potassium Whole Blood 3.6 mmol/L (3.4-4.5); ABG Sodium Whole Blood 137 mmol/L (135-146); ABG TCO2 21 mmol/L (19-24)
[2018-08-23] MEDS ORDERED: BENZOCAINE/MENTHOL LOZENG 1 EACH LOZENGE MUCOUS MEM PRN (12:28)
[2018-08-23] MEDS ORDERED: ONDANSETRON 4 MG/2 ML VIAL IVP PRN (12:28)
[2018-08-23] MEDS ORDERED: Magnesium Replacement Protocol 1 EACH MISC MISCELLANE PRN (12:28)
[2018-08-23] MEDS ORDERED: CALCIUM GLUCONATE 2 GM in SODIUM CHLORIDE 0.9% 100 ML IVPB PRN (12:28)
[2018-08-23] MEDS ORDERED: AMIODARONE 360 MG in DEXTROSE 5% IN WATER 200 ML IV PRN ×2 (12:28)
[2018-08-23] MEDS ORDERED: Potassium Replacement Protocol 1 EACH MISC MISCELLANE PRN (12:28)
[2018-08-23] MEDS ORDERED: DEXTROSE 5% IN WATER 100 ML with AMIODARONE 150 MG IV PRN (12:28)
[2018-08-23] MEDS ORDERED: METOCLOPRAMIDE 5 MG/ML 2 ML VIAL IVP PRN (12:28)
[2018-08-23] MEDS ORDERED: Phosphorus Replacement Protoco 1 EACH MISC MISCELLANE PRN (12:28)
[2018-08-23] MEDS ORDERED: AMIODARONE 300 MG in DEXTROSE 5% IN WATER 250 ML IV PRN ×2 (12:28)
[2018-08-23] MEDS ORDERED: DOPamine DRIP 800 MG in DEXTROSE/WATER 1 500ML.BAG IV SCH (12:30)
--- NOTE | 2018-08-23 12:37 | P.OP ---
Date of Procedure: 08/23/18 Preoperative Diagnosis: Coronary artery disease with subendocardial infarction Postoperative Diagnosis: Same Procedure(s) Performed: Off pump coronary artery bypass grafting 3 with sequential MURDOCK to LAD and diagonal and saphenous vein graft to obtuse marginal with ligation of left atrial appendage with 35 mm AtriClip Implants: 35 mm atriclip Anesthesia: JESSE Surgeon: Jones Palm Orthotic Technician #1: Herve Lee Orthotic Technician #2: Royal Purvis Estimated Blood Loss (ml): 250 IV fluids (ml): 2,000 Urine output (ml): 500 Pathology: none sent Condition: stable Disposition: ICU Indications for Procedure: 67-year-old morbidly obese female presented with chest pain and ruled in for subendocardial infarction. Found to have three-vessel coronary artery disease with nondominant right coronary artery and significant disease in the dominant circumflex and LAD systems. Urgent surgical revascularization was requested. Standard workup was performed. Patient was scheduled next available time. Operative Findings: Echocardiography demonstrated a relatively normal ventricular function. Mitral valve was structurally normal but had mild to moderate 2+ central regurgitation. Was no clot the left atrial appendage. Coronary targets showed a good diagonal branch 1.5 mm diameter, good LAD grafted in its midportion with a 1.75-2 mm inner lumen. Circumflex coronary artery gave rise to multiple branches. First obtuse marginal was very small and heavily diseased. It was not grafted. Second obtuse marginal was large vessel but was heavily calcific. It ran on the obtuse margin of the heart. Just distal to this was another branch also of excellent size which was soft and relatively disease-free vessel. This was the vessel it was grafted. The terminal circumflex was very small vessel but that did leading to the PDA distribution. It was not grafted. MURDOCK was an excellent conduit. Saphenous vein was also excellent Description of Procedure: Patient was brought to the operating room, placed supine on the operating table, anesthetized and intubated. Anterior torso and lower extremities were sterilely prepped and draped. A right radial artery line and right internal jugular [place]- Chucky catheter had been placed in the preop holding area. GISELE probe was placed. Saphenous vein was harvested from the left lower extremity from lobe the need to the groin and was of good quality. Endovascular vein harvest techniques were used. Simultaneous sternotomy was performed. Sternum was opened in the midline and Cardiac exposed. The left hemisternum was retracted upwards and the left internal mammary artery harvested on a vascular pedicle, left intact on its origin from the subclavian and divided distally. Left pleural space was drained with 32-Ivorian chest tube. Standard sternal retractor was placed in the pericardium was opened in the midline. Heart was exposed pericardial sutures. Right pleural space was also opened widely and drained with 32-Ivorian chest tube. Left atrial appendage was exposed pericardial sutures. A 35 mm AtriCure clip was placed on the base of the left atrial appendage. The left internal mammary artery was brought into the pericardial space. Was prepared appropriately for sequential grafting of the diagonal LAD. Proximal anastomosis side to side of the MURDOCK to the diagonal was performed first. Diagonal was opened and blood flow control with a 1.5 mm flow through. Anastomosis was constructed [id number] fashion with running 8-0 Prolene suture. Completion of the anastomosis flow through was removed effectively probing the proximal distal portion of the diagonal. Bulldog clamp was removed from proximal to distal on the internal mammary artery and inflow open to the diagonal. Next the distal anastomosis of the MURDOCK to the LAD was performed. The LAD was stabilized and opened. Blood flow was controlled with a 1.5 mm flow through. Anastomosis was constructed with running 8-0 Prolene suture. On completion of the anastomosis the flow through was removed 50 probe the proximal distal portion anastomosis. Suture was tied with good result and hemostasis and inflow was open. Graft was noted to lay well. Good hemostasis was noted. The SIS was tacked surrounding epicardium for both grafts with 6-0 silk sutures. Next piece of saphenous vein was prepared appropriately to reach the ascending aorta to the third obtuse marginal branch. Was prepared appropriately loaded on passport anastomotic connector. Was anastomosed to the mid ascending aorta just to the left midline. Was brought beneath the MURDOCK to the lateral wall of the heart. A third obtuse marginal was stabilized and opened. It was a 1.75 mm vessel. Blood flow was c ontrolled with a 1.5 mm flow through. Anastomosis was constructed in end-to-side fashion with running 7-0 Prolene suture. Completion the anastomosis the flow through was removed effectively probing the proximal distal portion of the anastomosis. Suture was tied with good result and hemostasis and inflow was open. The graft was noted to lay well. Heart was lowered into anatomic position. Heparin was reversed with protamine and good hemostasis obtained throughout. Chest was irrigated with antibiotic solution. Part way through the procedure the radial art line and failed and a right femoral arterial line had been placed. Patient was started on some low-dose dopamine. She is also given a unit of blood for a hemoglobin of 5.9. Sternum was closed with 4 sternal wires and 2 cable plates. inspector bicycle plate was placed in the manubrium and a box plate in the upper sternal body. A third V plate was placed on the lower sternal body. Total apposition was obtained. Subcutaneous the fascia was closed with 0 Ethibond. The subcutaneous layers were closed layers of Vicryl suture. Dry sterile dressings were applied the patient was transferred to the ICU in stable condition.
[2018-08-23] MEDS ORDERED: AMIODARONE 360 MG in DEXTROSE 5% IN WATER 200 ML IV ONE ×2 (12:45)
[2018-08-23] MEDS: DOPamine DRIP 800 MG in DEXTROSE/WATER 1 250ML.BAG IV SCH (13:15)
[2018-08-23 13:37] LABS: Glucose,Whole Blood 172 mg/dL (75-99)
[2018-08-23 13:56] LABS: Anisocytosis Moderate; Basophils % (A) 0 %; Eosinophils # (A) 0.1 k/uL (0-0.7); Eosinophils % (A) 1 %; Hypochromasia Moderate; Lymphocytes % (A) 8 %; MCH 29.5 pg (25.0-35.0); MCHC 33.5 g/dL (31.0-37.0); Mean Platelet Volume 10.2; Microcytosis Slight; Monocytes # (A) 0.5 k/uL (0-1.0); Monocytes % (A) 3 %; Neutrophils # (A) 11.6 k/uL (1.3-7.7); Neutrophils % (A) 87 %; Platelet Count 154 k/uL (150-450); Poikilocytosis Slight; RBC 2.44 m/uL (3.80-5.40); RDW 21.8 % (11.5-15.5); WBC 13.4 k/uL (3.8-10.6)
[2018-08-23 14:00] LABS: Ionized Calcium 5.7 mg/dL (4.5-5.3)
[2018-08-23 14:05] LABS: INR 1.4 (<1.2); Prothrombin Time 14.2 sec (9.0-12.0)
[2018-08-23 14:08] LABS: HCT 21.5 % (34.0-46.0); HGB 7.2 gm/dL (11.4-16.0)
[2018-08-23 14:16] LABS: ALT 23 U/L (9-52); AST 19 U/L (14-36); Albumin 2.8 g/dL (3.5-5.0); Alkaline Phosphatase 43 U/L (38-126); Anion Gap 9 mmol/L; Blood Urea Nitrogen 19 mg/dL (7-17); Calcium 9.6 mg/dL (8.4-10.2); Carbon Dioxide 20 mmol/L (22-30); Chloride 107 mmol/L (98-107); Glucose 153 mg/dL (74-99); Magnesium 1.8 mg/dL (1.6-2.3); Potassium 4.5 mmol/L (3.5-5.1); Sodium 136 mmol/L (137-145); Total Protein 4.8 g/dL (6.3-8.2)
[2018-08-23 14:23] LABS: ABG Base Excess -6.4 mmol/L; ABG HCO3 21 mmol/L (21-25); ABG PCO2 52 mmHg (35-45); ABG PH 7.22 (7.35-7.45); ABG PO2 167 mmHg (83-108); ABG TCO2 23 mmol/L (19-24)
[2018-08-23 14:24] LABS: Glucose,Whole Blood 183 mg/dL (75-99)
[2018-08-23 14:34] LABS: ABG Oxygen Saturation 99.2 % (94-97)
[2018-08-23] MEDS ORDERED: HYDROCORTISONE SUCCINATE 100 MG/2 ML VIAL IV STA (14:39)
[2018-08-23] MEDS: NITROGLYCERIN-D5W PMX 50 MG in DEXTROSE/WATER 1 250ML.BAG IV SCH (14:49)
[2018-08-23] MEDS: CINACALCET 30 MG TAB PO SCH ×2 (14:50→20:28)
[2018-08-23] MEDS: CLEVIDIPINE BUTYRATE 25 MG in EMPTY BAG 1 BAG IV SCH (14:50)
[2018-08-23] MEDS: LACTATED RINGERS 1,000 ML IV SCH (14:53)
[2018-08-23 15:12] LABS: Glucose,Whole Blood 162 mg/dL (75-99)
[2018-08-23] MEDS: MAGNESIUM SULFATE-D5W PMX 1 GM in DEXTROSE/WATER 1 100ML.BAG IVPB SCH ×2 (15:17→16:42)
--- NOTE | 2018-08-23 15:17 | XR ---
EXAMINATION TYPE: XR chest 1V portable DATE OF EXAM: 08/23/2018 COMPARISON: 08/15/2018 HISTORY: Status post cardiac surgery TECHNIQUE: Single frontal view of the chest is obtained. FINDINGS: Endotracheal tube, enteric tube, bilateral thoracostomy tubes, mediastinal drains, and [place] catheter all appear appropriately placed. The endotracheal tube terminates approximately 2.5 c m kemi just distal to the aortic arch. Enteric tube courses beyond the [id number]. [place]-Chucky cat heter is likely situated currently in the right main pulmonary artery. No residual pneumothoraces. Mu ltifocal linear airspace disease is likely on a basilar atelectasis. No discrete pleural effusion. Ca rdiomediastinal silhouette is enlarged. Post CABG changes the chest. IMPRESSION: Lines and tubes as described above. Multifocal linear airspace disease atelectasis.
[2018-08-23] MEDS ORDERED: IPRATROPIUM-ALBUTEROL 3 ML NEB INHALATION SCH (16:00)
[2018-08-23] MEDS: INSULIN REGULAR 100 UNIT in SODIUM CHLORIDE 0.9% 100 ML IV SCH (16:09)
--- NOTE | 2018-08-23 16:20 | P.PN ---
Subjective Progress Note Date: 08/23/18 This is a 67-year-old female patient with known history of chronic atrial fibrillation, coronary artery disease with previous coronary intervention and stenting back in 2003, hypertension and hyperlipidemia and CHF with diastolic heart failure and an ejection fraction of 50%. The patient is a chronic ex- smoker and she has quit smoking in March 2018 and she was peripheral artery disease and chronic osteoarthritis and she is obese with a BMI of 53.6. The patient was recently admitted to the hospital on 08/03/2018 for symptoms of worsening shortness of breath and lightheadedness. During the admission the patient abnormal troponins. The patient back then diffuse cardiac catheterization and she went home. She came back to the emergency department on 08/15/2018 with progressive dyspnea and lower extremity swelling. At that time she was seen by cardiology. EKG showed atrial fibrillation controlled rate. The patient had a normal kidney function. The patient underwent a cardiac catheterization and showed 80% stenosis in the left main, 70% stenosis of diagonal artery, 80% stenosis of the proximal circumflex artery, totally occluded RCA with collaterals from the left system. They the patient underwent off-pump coronary artery bypass grafting surgery 3 with sequential MURDOCK to the LAD and diagonal and saphenous vein graft to the obtuse marginal with ligation of left atrial appendage. Patient was seen and examined in the intensive care unit postoperatively. Patient is intubated on ventilator. Continues to be on IV amiodarone, dopamine, nitroglycerin drip. Blood pressure 129/40 with a heart rate in the 70s. Objective - Vital Signs Vital signs: Vital Signs Temp 94.8 F L 08/23/18 15:00 Pulse 69 08/23/18 15:44 Resp 16 08/23/18 15:00 BP 129/48 08/23/18 15:00 Pulse Ox 100 08/23/18 15:00 Intake & Output 08/22/18 08/23/18 08/23/18 18:59 06:59 18:59 Intake Total 310 1045.118 Output Total 1601 1702 755 Balance -1291 -1702 290.118 Weight 123.5 kg Intake: IV 103 Lactated Ringers 1,000 ml 100 @ 50 mls/hr IV .Q20H [facility] Rx#:[id number] Intake, IV Titration 0 12.118 Amount DOPamine DRIP 800 mg In 12.118 Dextrose/Water 1 250ml. bag @ 2 MCG/KG/MIN 4.631 mls/hr IV .Q24H [facility] Rx#: [id number] Heparin Sod,Pork in 0.45% 0 NaCl 25,000 unit In 0.45 % NaCl 1 250ml.bag @ 8 UNITS/KG/HR 9.968 mls/hr IV .Q24H [facility] Rx#: [id number] Blood Product 310 930 Rc As-1 Unit 310 [id number] Rc As-1 Unit 310 [id number] Rc As-1 Unit 310 [id number] Rc As-3 Unit 310 [id number] Output: Chest Tube Drainage 220 Left Pleural 100 Right Pleural/Mediastinal 120 Urine 1600 1700 285 Stool 1 2 Estimated Blood Loss 250 Other: Voiding Method Bedside Commode Bedside Commode # Voids 3 3 # Bowel Movements 1 ABP, PAP, CO, CI - Last Documented Arterial Blood Pressure 129/49 Pulmonary Artery Pressure 50/37 Cardiac Output 3.5 Cardiac Index 1.9 - Exam HEAD: Normocephalic/atraumatic. EYES: Normal reaction of pupils, equal size. Conjunctiva pink, sclera white. NOSE: Clear with pink turbinates. THROAT: No erythema or exudates. NECK: No masses, no JVD, no thyroid enlargement, no adenopathy. CHEST: No chest wall deformity. Symmetrical expansion. Midsternal incision is clean dry and intact, covered with a surgical dressing, sternum is stable, left pleural and mediastinal chest tubes are in place, to wall suction LUNGS: Equal air entry with no crackles, wheeze, rhonchi or dullness. Mild diminished air entry to the bases. CVS: regular rate and rhythm, normal S1 and S2, no gallops, no murmurs, no rubs ABDOMEN: Soft, nontender. No hepatosplenomegaly, normal bowel sounds, no guarding or rigidity. EXTREMITIES: No clubbing, no edema, no cyanosis, 2+ pulses and upper and lower extremities. MUSCULOSKELETAL: Muscle strength and tone normal. Leg incisions are clean dry and intact, left medial JOAQUÍN drain with small amount of serosanguineous output SPINE: No scoliosis or deformity SKIN: No rashes CENTRAL NERVOUS SYSTEM: sedated, intubated. No focal deficits, tone is normal in all 4 extremities. - Labs CBC & Chem 7: 08/23/18 13:45 08/23/18 13:45 Labs: Abnormal Lab Results - Last 24 Hours (Table) 08/22/18 08/22/18 08/23/18 Range/Units 04:15 20:00 05:45 WBC (3.8-10.6) k/uL RBC (3.80-5.40) m/uL Hgb (11.4-16.0) gm/dL Hct (34.0-46.0) % RDW (11.5-15.5) % Neutrophils # (1.3-7.7) k/uL PT (9.0-12.0) sec INR (<1.2) APTT (22.0-30.0) sec ABG pH (7.35-7.45) ABG pCO2 (35-45) mmHg ABG pO2 (83-108) mmHg ABG HCO3 (21-25) mmol/L ABG Total CO2 (19-24) mmol/L ABG O2 Saturation (94-97) % ABG Hematocrit (34.0-46.0) % ABG Ionized Calcium (4.5-5.3) mg/dL ABG Glucose (75-99) mg/dL ABG Lactic Acid (0.5-1.6) mmol/L Hemoglobin (11.4-16.0) gm/dL Sodium (137-145) mmol/L Carbon Dioxide (22-30) mmol/L BUN (7-17) mg/dL Glucose (74-99) mg/dL POC Glucose (mg/dL) 104 H (75-99) mg/dL Ionized Calcium Saúl (4.5-5.3) mg/dL Total Protein (6.3-8.2) g/dL Albumin (3.5-5.0) g/dL Arterial Blood Glucose (75-99) mg/dL Stool Occult Blood Positive H (Negative) Crossmatch See Detail 08/23/18 08/23/18 08/23/18 Range/Units 06:27 08:36 10:17 WBC (3.8-10.6) k/uL RBC (3.80-5.40) m/uL Hgb (11.4-16.0) gm/dL Hct (34.0-46.0) % RDW (11.5-15.5) % Neutrophils # (1.3-7.7) k/uL PT (9.0-12.0) sec INR (<1.2) APTT 18.7 L (22.0-30.0) sec ABG pH (7.35-7.45) ABG pCO2 47 H (35-45) mmHg ABG pO2 251 H 222 H (83-108) mmHg ABG HCO3 27 H (21-25) mmol/L ABG Total CO2 29 H 25 H (19-24) mmol/L ABG O2 Saturation 100.0 H 100.0 H (94-97) % ABG Hematocrit 27 L 23 L (34.0-46.0) % ABG Ionized Calcium 5.4 H (4.5-5.3) mg/dL ABG Glucose 103 H 112 H (75-99) mg/dL ABG Lactic Acid 1.7 H 1.9 H (0.5-1.6) mmol/L Hemoglobin 8.7 L 7.5 L (11.4-16.0) gm/dL Sodium (137-145) mmol/L Carbon Dioxide (22-30) mmol/L BUN (7-17) mg/dL Glucose (74-99) mg/dL POC Glucose (mg/dL) (75-99) mg/dL Ionized Calcium Saúl (4.5-5.3) mg/dL Total Protein (6.3-8.2) g/dL Albumin (3.5-5.0) g/dL Arterial Blood Glucose 103 H 112 H (75-99) mg/dL Stool Occult Blood (Negative) Crossmatch 08/23/18 08/23/18 08/23/18 Range/Units 10:53 12:10 13:20 WBC (3.8-10.6) k/uL RBC (3.80-5.40) m/uL Hgb (11.4-16.0) gm/dL Hct (34.0-46.0) % RDW (11.5-15.5) % Neutrophils # (1.3-7.7) k/uL PT (9.0-12.0) sec INR (<1.2) APTT (22.0-30.0) sec ABG pH 7.34 L (7.35-7.45) ABG pCO2 (35-45) mmHg ABG pO2 228 H (83-108) mmHg ABG HCO3 20 L (21-25) mmol/L ABG Total CO2 (19-24) mmol/L ABG O2 Saturation 100.0 H 98.4 H (94-97) % ABG Hematocrit 21 L 18 L* (34.0-46.0) % ABG Ionized Calcium 6.0 H* (4.5-5.3) mg/dL ABG Glucose 125 H 133 H (75-99) mg/dL ABG Lactic Acid 2.2 H* 4.2 H* (0.5-1.6) mmol/L Hemoglobin 6.8 L* 5.9 L* (11.4-16.0) gm/dL Sodium (137-145) mmol/L Carbon Dioxide (22-30) mmol/L BUN (7-17) mg/dL Glucose (74-99) mg/dL POC Glucose (mg/dL) 172 H (75-99) mg/dL Ionized Calcium Saúl (4.5-5.3) mg/dL Total Protein (6.3-8.2) g/dL Albumin (3.5-5.0) g/dL Arterial Blood Glucose 125 H 133 H (75-99) mg/dL Stool Occult Blood (Negative) Crossmatch 08/23/18 08/23/18 08/23/18 Range/Units 13:45 13:45 13:45 WBC 13.4 H (3.8-10.6) k/uL RBC 2.44 L (3.80-5.40) m/uL Hgb 7.2 L D (11.4-16.0) gm/dL Hct 21.5 L (34.0-46.0) % RDW 21.8 H (11.5-15.5) % Neutrophils # 11.6 H (1.3-7.7) k/uL PT 14.2 H (9.0-12.0) sec INR 1.4 H (<1.2) APTT (22.0-30.0) sec ABG pH (7.35-7.45) ABG pCO2 (35-45) mmHg ABG pO2 (83-108) mmHg ABG HCO3 (21-25) mmol/L ABG Total CO2 (19-24) mmol/L ABG O2 Saturation (94-97) % ABG Hematocrit (34.0-46.0) % ABG Ionized Calcium (4.5-5.3) mg/dL ABG Glucose (75-99) mg/dL ABG Lactic Acid (0.5-1.6) mmol/L Hemoglobin (11.4-16.0) gm/dL Sodium 136 L (137-145) mmol/L Carbon Dioxide 20 L (22-30) mmol/L BUN 19 H (7-17) mg/dL Glucose 153 H (74-99) mg/dL POC Glucose (mg/dL) (75-99) mg/dL Ionized Calcium Saúl 5.7 H (4.5-5.3) mg/dL Total Protein 4.8 L (6.3-8.2) g/dL Albumin 2.8 L (3.5-5.0) g/dL Arterial Blood Glucose (75-99) mg/dL Stool Occult Blood (Negative) Crossmatch 08/23/18 08/23/18 08/23/18 Range/Units 14:01 14:22 15:11 WBC (3.8-10.6) k/uL RBC (3.80-5.40) m/uL Hgb (11.4-16.0) gm/dL Hct (34.0-46.0) % RDW (11.5-15.5) % Neutrophils # (1.3-7.7) k/uL PT (9.0-12.0) sec INR (<1.2) APTT (22.0-30.0) sec ABG pH 7.22 L (7.35-7.45) ABG pCO2 52 H (35-45) mmHg ABG pO2 167 H (83-108) mmHg ABG HCO3 (21-25) mmol/L ABG Total CO2 (19-24) mmol/L ABG O2 Saturation 99.2 H (94-97) % ABG Hematocrit (34.0-46.0) % ABG Ionized Calcium (4.5-5.3) mg/dL ABG Glucose (75-99) mg/dL ABG Lactic Acid (0.5-1.6) mmol/L Hemoglobin (11.4-16.0) gm/dL Sodium (137-145) mmol/L Carbon Dioxide (22-30) mmol/L BUN (7-17) mg/dL Glucose (74-99) mg/dL POC Glucose (mg/dL) 183 H 162 H (75-99) mg/dL Ionized Calcium Saúl (4.5-5.3) mg/dL Total Protein (6.3-8.2) g/dL Albumin (3.5-5.0) g/dL Arterial Blood Glucose (75-99) mg/dL Stool Occult Blood (Negative) Crossmatch Assessment and Plan Plan: Impression: 1 acute non-ST elevation myocardial infarction, status post off-pump coronary bypass grafting surgery 3 with sequential MURDOCK to the LAD and diagonal and saphenous vein graft to the obtuse marginal with ligation of left atrial appendage 2 severe obstructive and restrictive lung disease 3 symptomatic multivessel coronary artery disease 4 benign essential hypertension 5 chronic atrial fibrillation 6 morbid obesity 7 carotid artery disease 8 chronic venous insufficiency 9 history of smoking, quit in March of 2018. 10 chronic anemia 11 peripheral vessel occlusive disease, involving both lower extremities. Plan We will continue current therapy, we'll continue to follow the patient along with you. DNP note has been reviewed, I agree with a documented findings and plan of care. Patient was seen and examined.
[2018-08-23 16:21] LABS: Glucose,Whole Blood 157 mg/dL (75-99)
[2018-08-23] MEDS: PROPOFOL 1,000 MG in EMPTY BAG 1 BAG IV SCH (16:33)
[2018-08-23] MEDS: ceFAZolin 3 GM in SODIUM CHLORIDE 0.9% 100 ML IVPB SCH ×2 (16:34→23:13)
[2018-08-23 16:35] LABS: ABG Base Excess -4.5 mmol/L; ABG HCO3 22 mmol/L (21-25); ABG Oxygen Saturation 99.3 % (94-97); ABG PCO2 44 mmHg (35-45); ABG PO2 158 mmHg (83-108); ABG TCO2 23 mmol/L (19-24)
[2018-08-23] MEDS: SENNOSIDES-DOCUSATE SODIUM 1 EACH TAB PO SCH (16:44)
[2018-08-23] MEDS: ASPIRIN 81 MG PO SCH (16:44)
[2018-08-23] MEDS: LISINOPRIL 2.5 MG TAB PO SCH (16:44)
[2018-08-23] MEDS: MUPIROCIN 2% OINT 22 GM TUBE NASAL SCH (16:44)
[2018-08-23] MEDS: BUMETANIDE 1 MG TAB PO SCH (16:45)
[2018-08-23] MEDS: PANTOPRAZOLE 40 MG TABLET PO SCH (16:45)
[2018-08-23] MEDS: CARVEDILOL 3.125 MG TAB PO SCH (16:45)
[2018-08-23 17:16] LABS: Glucose,Whole Blood 176 mg/dL (75-99)
[2018-08-23] MEDS: ALBUMIN HUMAN 5% 250 ML in EMPTY BAG 1 BAG IVPB PRN ×2 (17:37→22:39)
[2018-08-23 17:59] LABS: Anisocytosis Moderate; Basophils % (A) 0 %; Eosinophils % (A) 0 %; HCT 27.9 % (34.0-46.0); Hypochromasia Slight; Lymphocytes # (A) 0.5 k/uL (1.0-4.8); Lymphocytes % (A) 4 %; MCH 27.8 pg (25.0-35.0); MCV 86.8 fL (80.0-100.0); Mean Platelet Volume 9.8; Microcytosis Slight; Monocytes # (A) 0.5 k/uL (0-1.0); Monocytes % (A) 4 %; Neutrophils # (A) 12.2 k/uL (1.3-7.7); Neutrophils % (A) 92 %; Platelet Count 116 k/uL (150-450); Poikilocytosis Slight; RBC 3.21 m/uL (3.80-5.40); RDW 21.3 % (11.5-15.5); WBC 13.3 k/uL (3.8-10.6)
[2018-08-23 18:03] LABS: HGB 8.9 gm/dL (11.4-16.0)
--- NOTE | 2018-08-23 18:05 | P.PN ---
Subjective Progress Note Date: 08/23/18 Principal diagnosis: Multivessel coronary artery disease, acute non-ST elevated OK On 08/23/2018 patient seen in follow-up in the intensive care unit, she underwent myocardial revascularization today by Dr. Palm, off-pump three- vessel coronary artery bypass, with sequential MURDOCK to LAD and the diagonal saphenous vein graft to obtuse marginal with ligation of left atrial appendage with Atri-clip. Patient did experience a run of V. fib Intra-Op after closing of the chest, she was defibrillated once, and converted to sinus rhythm. Was started on amiodarone drip per protocol. Patient was then noted to be bradycardic, requiring dopamine drip, postop hemoglobin was 7.2, intraoperatively her hemoglobin was as low as 5. Preoperative hemoglobin was 8.7. Patient received a total of 4 units of packed red blood cells. She was given albumin. Did have issues with low cardiac output and indices, chair improving with the blood transfusions and volume resuscitation. Most currently her cardiac output is 3.5, and cardiac index is 1.9. PA pressures of 33/26, blood pressure is 108/41, she was hypothermic with a temperature of 93.9, and she is being rewarmed, and blood transfusion is being warmed. He is intubated, on mechanical ventilator, with current vent settings assist control mode of ventilation, with a rate of 12, tidal volume 400, FiO2 100% and PEEP of 10, po stop blood gases were obtained, and showed pO2 of 167, pCO2 of 51, and pH of 7.22. Ventilator adjustments were made, rate was admitted to 16, tidal volume was increased to 450. Repeat blood gas was obtained, and showed improvement, with pO2 of 158, pCO2 44, and pH of 7.30. Other IVs include lactated Ringer's at a rate of 50 ML per hour, nitroglycerin drip is currently at 5 mics per minute, insulin drip is at 6 units per hour, amiodarone drip is currently at 0.5 mg per hour, Diprivan and is at 5 mics per kilo per minute, dopamine is currently at 3 mics per kilo per minute. Postop chest x-ray has been reviewed by Dr. Wheeler, and showed ET tube, OG tube, chest tubes, [place] catheter all appropriately placed, no residual pneumothoraces, basilar atelectasis. Patient has left pleural and right pleural/mediastinal chest tubes in place, with small amount of sanguinous drainage, ID season, and patient is nonoliguric. Sternal incision is clean dry and intact, chest tube sites are clean dry and intact. Objective - Vital Signs Vital signs: Vital Signs Temp 94.8 F L 08/23/18 15:00 Pulse 60 08/23/18 16:45 Resp 16 08/23/18 16:45 BP 129/48 08/23/18 15:00 Pulse Ox 99 08/23/18 16:45 Intake & Output 08/22/18 08/23/18 08/23/18 18:59 06:59 18:59 Intake Total 310 1346.551 Output Total 1601 1702 859 Balance -1291 -1702 487.551 Weight 123.5 kg Intake: IV 404.1 Amiodarone 300 mg In 16.6 Dextrose 5% in Water 250 ml @ 0.5 MG/MIN 25 mls/hr IV .Q10H [facility] Rx#: [id number] CO/CI 20 DOPamine DRIP 800 mg In 7 Dextrose/Water 1 250ml. bag @ 2 MCG/KG/MIN 4.631 mls/hr IV .Q24H [facility] Rx#: [id number] Lactated Ringers 1,000 ml 150 @ 50 mls/hr IV .Q20H [facility] Rx#:[id number] Magnesium Sulfate-D5w Pmx 100 1 gm In Dextrose/Water 1 100ml.bag @ 100 mls/hr IVPB Q1H [facility] Rx#: [id number] Nitroglycerin-D5w Pmx 50 1.5 mg In Dextrose/Water 1 250ml.bag @ 5 MCG/MIN 1.5 mls/hr IV .Q24H [facility] Rx#: [id number] ceFAZolin 3 gm In Sodium 100 Chloride 0.9% 100 ml @ 100 mls/hr IVPB Q8HR [facility] Rx#:[id number] pressure bag 6 Intake, IV Titration 0 12.451 Amount DOPamine DRIP 800 mg In 12.118 Dextrose/Water 1 250ml. bag @ 2 MCG/KG/MIN 4.631 mls/hr IV .Q24H [facility] Rx#: [id number] Heparin Sod,Pork in 0.45% 0 NaCl 25,000 unit In 0.45 % NaCl 1 250ml.bag @ 8 UNITS/KG/HR 9.968 mls/hr IV .Q24H [facility] Rx#: [id number] Insulin Regular 100 unit 0.333 In Sodium Chloride 0.9% 100 ml @ Titrate IV .Q0M [facility] Rx#:[id number] Blood Product 310 930 Rc As-1 Unit 310 [id number] Rc As-1 Unit 310 [id number] Rc As-1 Unit 310 [id number] Rc As-3 Unit 310 [id number] Output: Chest Tube Drainage 249 Left Pleural 110 Right Pleural/Mediastinal 139 Urine 1600 1700 360 Stool 1 2 Estimated Blood Loss 250 Other: Voiding Method Bedside Commode Bedside Commode # Voids 3 3 # Bowel Movements 1 ABP, PAP, CO, CI - Last Documented Arterial Blood Pressure 108/41 Pulmonary Artery Pressure 33/26 Cardiac Output 5.1 Cardiac Index 4.7 - Exam GENERAL EXAM: Sedated, obese 67-year-old white female, intubated, on mechanical ventilator, comfortable in no apparent distress. HEAD: Normocephalic/atraumatic. EYES: Normal reaction of pupils, equal size. Conjunctiva pink, sclera white. NOSE: Clear with pink turbinates. THROAT: No erythema or exudates. NECK: No masses, no JVD, no thyroid enlargement, no adenopathy. CHEST: No chest wall deformity. Symmetrical expansion. Midsternal incision is clean dry and intact, sternum is covered with surgical dressing, mediastinal, and right pleural, and left pleural chest tubes are in place, with small amount of sanguinous output in the Pleur-evac, to wall suction, no evidence of air leak. LUNGS: Equal air entry with no crackles, wheeze, rhonchi or dullness. CVS: Regular rate and rhythm, normal S1 and S2, no gallops, no murmurs, no rubs ABDOMEN: Soft, nontender. No hepatosplenomegaly, normal bowel sounds, no guarding or rigidity. EXTREMITIES: No clubbing, no edema, no cyanosis, 2+ pulses and upper and lower extremities. MUSCULOSKELETAL: Muscle strength and tone normal. SPINE: No scoliosis or deformity SKIN: No rashes CENTRAL NERVOUS SYSTEM: Sedated, intubated on mechanical ventilator, unable to assess. - Labs CBC & Chem 7: 08/23/18 13:45 08/23/18 13:45 Labs: Abnormal Lab Results - Last 24 Hours (Table) 08/22/18 08/22/18 08/23/18 Range/Units 04:15 20:00 05:45 WBC (3.8-10.6) k/uL RBC (3.80-5.40) m/uL Hgb (11.4-16.0) gm/dL Hct (34.0-46.0) % RDW (11.5-15.5) % Neutrophils # (1.3-7.7) k/uL PT (9.0-12.0) sec INR (<1.2) APTT (22.0-30.0) sec ABG pH (7.35-7.45) ABG pCO2 (35-45) mmHg ABG pO2 (83-108) mmHg ABG HCO3 (21-25) mmol/L ABG Total CO2 (19-24) mmol/L ABG O2 Saturation (94-97) % ABG Hematocrit (34.0-46.0) % ABG Ionized Calcium (4.5-5.3) mg/dL ABG Glucose (75-99) mg/dL ABG Lactic Acid (0.5-1.6) mmol/L Hemoglobin (11.4-16.0) gm/dL Sodium (137-145) mmol/L Carbon Dioxide (22-30) mmol/L BUN (7-17) mg/dL Glucose (74-99) mg/dL POC Glucose (mg/dL) 104 H (75-99) mg/dL Ionized Calcium Saúl (4.5-5.3) mg/dL Total Protein (6.3-8.2) g/dL Albumin (3.5-5.0) g/dL Arterial Blood Glucose (75-99) mg/dL Stool Occult Blood Positive H (Negative) Crossmatch See Detail 08/23/18 08/23/18 08/23/18 Range/Units 06:27 08:36 10:17 WBC (3.8-10.6) k/uL RBC (3.80-5.40) m/uL Hgb (11.4-16.0) gm/dL Hct (34.0-46.0) % RDW (11.5-15.5) % Neutrophils # (1.3-7.7) k/uL PT (9.0-12.0) sec INR (<1.2) APTT 18.7 L (22.0-30.0) sec ABG pH (7.35-7.45) ABG pCO2 47 H (35-45) mmHg ABG pO2 251 H 222 H (83-108) mmHg ABG HCO3 27 H (21-25) mmol/L ABG Total CO2 29 H 25 H (19-24) mmol/L ABG O2 Saturation 100.0 H 100.0 H (94-97) % ABG Hematocrit 27 L 23 L (34.0-46.0) % ABG Ionized Calcium 5.4 H (4.5-5.3) mg/dL ABG Glucose 103 H 112 H (75-99) mg/dL ABG Lactic Acid 1.7 H 1.9 H (0.5-1.6) mmol/L Hemoglobin 8.7 L 7.5 L (11.4-16.0) gm/dL Sodium (137-145) mmol/L Carbon Dioxide (22-30) mmol/L BUN (7-17) mg/dL Glucose (74-99) mg/dL POC Glucose (mg/dL) (75-99) mg/dL Ionized Calcium Saúl (4.5-5.3) mg/dL Total Protein (6.3-8.2) g/dL Albumin (3.5-5.0) g/dL Arterial Blood Glucose 103 H 112 H (75-99) mg/dL Stool Occult Blood (Negative) Crossmatch 08/23/18 08/23/18 08/23/18 Range/Units 10:53 12:10 13:20 WBC (3.8-10.6) k/uL RBC (3.80-5.40) m/uL Hgb (11.4-16.0) gm/dL Hct (34.0-46.0) % RDW (11.5-15.5) % Neutrophils # (1.3-7.7) k/uL PT (9.0-12.0) sec INR (<1.2) APTT (22.0-30.0) sec ABG pH 7.34 L (7.35-7.45) ABG pCO2 (35-45) mmHg ABG pO2 228 H (83-108) mmHg ABG HCO3 20 L (21-25) mmol/L ABG Total CO2 (19-24) mmol/L ABG O2 Saturation 100.0 H 98.4 H (94-97) % ABG Hematocrit 21 L 18 L* (34.0-46.0) % ABG Ionized Calcium 6.0 H* (4.5-5.3) mg/dL ABG Glucose 125 H 133 H (75-99) mg/dL ABG Lactic Acid 2.2 H* 4.2 H* (0.5-1.6) mmol/L Hemoglobin 6.8 L* 5.9 L* (11.4-16.0) gm/dL Sodium (137-145) mmol/L Carbon Dioxide (22-30) mmol/L BUN (7-17) mg/dL Glucose (74-99) mg/dL POC Glucose (mg/dL) 172 H (75-99) mg/dL Ionized Calcium Saúl (4.5-5.3) mg/dL Total Protein (6.3-8.2) g/dL Albumin (3.5-5.0) g/dL Arterial Blood Glucose 125 H 133 H (75-99) mg/dL Stool Occult Blood (Negative) Crossmatch 08/23/18 08/23/18 08/23/18 Range/Units 13:45 13:45 13:45 WBC 13.4 H (3.8-10.6) k/uL RBC 2.44 L (3.80-5.40) m/uL Hgb 7.2 L D (11.4-16.0) gm/dL Hct 21.5 L (34.0-46.0) % RDW 21.8 H (11.5-15.5) % Neutrophils # 11.6 H (1.3-7.7) k/uL PT 14.2 H (9.0-12.0) sec INR 1.4 H (<1.2) APTT (22.0-30.0) sec ABG pH (7.35-7.45) ABG pCO2 (35-45) mmHg ABG pO2 (83-108) mmHg ABG HCO3 (21-25) mmol/L ABG Total CO2 (19-24) mmol/L ABG O2 Saturation (94-97) % ABG Hematocrit (34.0-46.0) % ABG Ionized Calcium (4.5-5.3) mg/dL ABG Glucose (75-99) mg/dL ABG Lactic Acid (0.5-1.6) mmol/L Hemoglobin (11.4-16.0) gm/dL Sodium 136 L (137-145) mmol/L Carbon Dioxide 20 L (22-30) mmol/L BUN 19 H (7-17) mg/dL Glucose 153 H (74-99) mg/dL POC Glucose (mg/dL) (75-99) mg/dL Ionized Calcium Saúl 5.7 H (4.5-5.3) mg/dL Total Protein 4.8 L (6.3-8.2) g/dL Albumin 2.8 L (3.5-5.0) g/dL Arterial Blood Glucose (75-99) mg/dL Stool Occult Blood (Negative) Crossmatch 08/23/18 08/23/18 08/23/18 Range/Units 14:01 14:22 15:11 WBC (3.8-10.6) k/uL RBC (3.80-5.40) m/uL Hgb (11.4-16.0) gm/dL Hct (34.0-46.0) % RDW (11.5-15.5) % Neutrophils # (1.3-7.7) k/uL PT (9.0-12.0) sec INR (<1.2) APTT (22.0-30.0) sec ABG pH 7.22 L (7.35-7.45) ABG pCO2 52 H (35-45) mmHg ABG pO2 167 H (83-108) mmHg ABG HCO3 (21-25) mmol/L ABG Total CO2 (19-24) mmol/L ABG O2 Saturation 99.2 H (94-97) % ABG Hematocrit (34.0-46.0) % ABG Ionized Calcium (4.5-5.3) mg/dL ABG Glucose (75-99) mg/dL ABG Lactic Acid (0.5-1.6) mmol/L Hemoglobin (11.4-16.0) gm/dL Sodium (137-145) mmol/L Carbon Dioxide (22-30) mmol/L BUN (7-17) mg/dL Glucose (74-99) mg/dL POC Glucose (mg/dL) 183 H 162 H (75-99) mg/dL Ionized Calcium Saúl (4.5-5.3) mg/dL Total Protein (6.3-8.2) g/dL Albumin (3.5-5.0) g/dL Arterial Blood Glucose (75-99) mg/dL Stool Occult Blood (Negative) Crossmatch 08/23/18 08/23/18 08/23/18 Range/Units 16:08 16:32 17:14 WBC (3.8-10.6) k/uL RBC (3.80-5.40) m/uL Hgb (11.4-16.0) gm/dL Hct (34.0-46.0) % RDW (11.5-15.5) % Neutrophils # (1.3-7.7) k/uL PT (9.0-12.0) sec INR (<1.2) APTT (22.0-30.0) sec ABG pH 7.30 L (7.35-7.45) ABG pCO2 (35-45) mmHg ABG pO2 158 H (83-108) mmHg ABG HCO3 (21-25) mmol/L ABG Total CO2 (19-24) mmol/L ABG O2 Saturation 99.3 H (94-97) % ABG Hematocrit (34.0-46.0) % ABG Ionized Calcium (4.5-5.3) mg/dL ABG Glucose (75-99) mg/dL ABG Lactic Acid (0.5-1.6) mmol/L Hemoglobin (11.4-16.0) gm/dL Sodium (137-145) mmol/L Carbon Dioxide (22-30) mmol/L BUN (7-17) mg/dL Glucose (74-99) mg/dL POC Glucose (mg/dL) 157 H 176 H (75-99) mg/dL Ionized Calcium Saúl (4.5-5.3) mg/dL Total Protein (6.3-8.2) g/dL Albumin (3.5-5.0) g/dL Arterial Blood Glucose (75-99) mg/dL Stool Occult Blood (Negative) Crossmatch Assessment and Plan Plan: Assessment: 1 symptomatic multivessel coronary artery disease, status post myocardial revascularization, postop day 0 2 acute blood loss anemia, and expected outcome of bypass surgery 3 Intraoperative V. fib requiring defibrillation 4 severe obstructive and restrictive lung disease 5 acute non-ST elevation myocardial infarction 6 benign essential hypertension 7 chronic atrial fibrillation 8 morbid obesity 9 carotid artery disease 10 chronic venous insufficiency 11 history of smoking, quit in March of 2018. 12 chronic anemia 13 peripheral vessel occlusive disease, involving both lower extremities. Plan: Ventilator adjustments were made, repeat blood gases were obtained, and have improved. Hemodynamically patient is improving, has responded well to transfusions, and volume, cardiac output and indices are improving, no significant bleeding from the chest tubes. Postop chest x-ray has been reviewed by Dr. Wheeler. No pneumothoraces, indwelling catheters and lines are in appropriate positions. Continue close hemodynamic monitoring, will wean FiO2, with the patient is rewarmed, history of any arrhythmias and hemodynamically remained stable we'll start sedation holiday and weaning process. Incentive spirometer to the bedside after extubation, daily chest x-rays and labs. Continue to closely follow I performed a history & physical examination of the patient and discussed their management with my nurse practitioner, Evelyn Malone. I reviewed the nurse practitioner's note and agree with the documented findings and plan of care. Lung sounds are positive for diminished. The findings and the impression was discussed with the patient. I attest to the documentation by the nurse practiti zohra. Time with Patient: Greater than 30
[2018-08-23 18:13] LABS: Glucose,Whole Blood 159 mg/dL (75-99)
[2018-08-23] MEDS: IPRATROPIUM-ALBUTEROL 3 ML NEB INHALATION SCH ×2 (19:23→19:27)
[2018-08-23 19:38] LABS: Glucose,Whole Blood 156 mg/dL (75-99)
[2018-08-23] MEDS: ACETAMINOPHEN IV (For NPO) 1,000 MG in EMPTY BAG 1 BAG IVPB SCH ×2 (20:09→23:13)
[2018-08-23] MEDS: HEPARIN SODIUM,PORCINE 5,000 UNIT/ML 1 ML VIAL SQ SCH (20:27)
[2018-08-23 20:41] LABS: Anisocytosis Moderate; HCT 26.4 % (34.0-46.0); Hypochromasia Slight; MCH 29.3 pg (25.0-35.0); Mean Platelet Volume 10.2; Microcytosis Slight; Platelet Count 119 k/uL (150-450); Poikilocytosis Slight; RBC 3.07 m/uL (3.80-5.40); RDW 21.4 % (11.5-15.5); WBC 12.6 k/uL (3.8-10.6)
[2018-08-23 20:42] LABS: Glucose,Whole Blood 156 mg/dL (75-99)
[2018-08-23 20:44] LABS: Ionized Calcium 5.6 mg/dL (4.5-5.3)
[2018-08-23 20:53] LABS: ALT 20 U/L (9-52); AST 26 U/L (14-36); Albumin 3.6 g/dL (3.5-5.0); Alkaline Phosphatase 48 U/L (38-126); Anion Gap 8 mmol/L; Blood Urea Nitrogen 19 mg/dL (7-17); Calcium 9.8 mg/dL (8.4-10.2); Carbon Dioxide 22 mmol/L (22-30); Chloride 107 mmol/L (98-107); Glucose 139 mg/dL (74-99); Magnesium 2.3 mg/dL (1.6-2.3); Phosphorus 3.6 mg/dL (2.5-4.5); Potassium 4.5 mmol/L (3.5-5.1); Sodium 137 mmol/L (137-145); Total Protein 5.5 g/dL (6.3-8.2)
[2018-08-23 20:55] LABS: INR 1.2 (<1.2); Partial Thromboplastin Time 27.9 sec (22.0-30.0); Prothrombin Time 12.3 sec (9.0-12.0)
[2018-08-23 21:25] LABS: Glucose,Whole Blood 142 mg/dL (75-99)
[2018-08-23 22:19] LABS: Glucose,Whole Blood 141 mg/dL (75-99)
[2018-08-23] MEDS: CHLORHEXIDINE GLUCONATE 15 ML CUP MUCOUS MEM SCH (22:39)
[2018-08-23 23:12] LABS: Glucose,Whole Blood 138 mg/dL (75-99)
[2018-08-23] MEDS: IPRATROPIUM-ALBUTEROL 3 ML NEB INHALATION PRN (23:20)
[2018-08-24] MEDS ORDERED: HYDROcodone/APAP 5-325MG 1 EACH TAB PO PRN ×2 (00:01)
[2018-08-24 00:06] LABS: Glucose,Whole Blood 123 mg/dL (75-99)
[2018-08-24] MEDS ORDERED: MORPHINE SULFATE 2 MG/ML SYRINGE IVP PRN (00:21)
[2018-08-24 00:59] LABS: Glucose,Whole Blood 111 mg/dL (75-99)
[2018-08-24 02:08] LABS: Glucose,Whole Blood 124 mg/dL (75-99)
[2018-08-24 03:11] LABS: Glucose,Whole Blood 138 mg/dL (75-99)
[2018-08-24] MEDS: IPRATROPIUM-ALBUTEROL 3 ML NEB INHALATION PRN (03:15)
[2018-08-24 04:03] LABS: Anisocytosis Moderate; Basophils % (A) 0 %; Eosinophils % (A) 0 %; HCT 25.5 % (34.0-46.0); HGB 8.5 gm/dL (11.4-16.0); Hypochromasia Slight; Lymphocytes # (A) 0.7 k/uL (1.0-4.8); Lymphocytes % (A) 6 %; MCH 28.8 pg (25.0-35.0); MCHC 33.3 g/dL (31.0-37.0); MCV 86.3 fL (80.0-100.0); Mean Platelet Volume 10.2; Microcytosis Slight; Monocytes # (A) 0.4 k/uL (0-1.0); Monocytes % (A) 4 %; Neutrophils # (A) 8.8 k/uL (1.3-7.7); Neutrophils % (A) 88 %; Platelet Count 113 k/uL (150-450); Poikilocytosis Slight; RBC 2.95 m/uL (3.80-5.40); RDW 21.5 % (11.5-15.5)
[2018-08-24 04:05] LABS: Glucose,Whole Blood 130 mg/dL (75-99)
[2018-08-24 04:10] LABS: Ionized Calcium 5.7 mg/dL (4.5-5.3)
[2018-08-24 04:26] LABS: ALT 24 U/L (9-52); AST 25 U/L (14-36); Albumin 3.4 g/dL (3.5-5.0); Alkaline Phosphatase 49 U/L (38-126); Anion Gap 9 mmol/L; Blood Urea Nitrogen 17 mg/dL (7-17); Calcium 10.2 mg/dL (8.4-10.2); Carbon Dioxide 20 mmol/L (22-30); Chloride 108 mmol/L (98-107); Glucose 110 mg/dL (74-99); Magnesium 2.1 mg/dL (1.6-2.3); Potassium 4.3 mmol/L (3.5-5.1); Sodium 137 mmol/L (137-145); Total Bilirubin 1.8 mg/dL (0.2-1.3); Total Protein 5.3 g/dL (6.3-8.2)
[2018-08-24 05:25] LABS: Glucose,Whole Blood 111 mg/dL (75-99)
[2018-08-24] MEDS: HEPARIN SODIUM,PORCINE 5,000 UNIT/ML 1 ML VIAL SQ SCH ×3 (05:52→20:54)
[2018-08-24] MEDS: NITROGLYCERIN-D5W PMX 50 MG in DEXTROSE/WATER 1 250ML.BAG IV SCH (05:53)
[2018-08-24 06:29] LABS: Glucose,Whole Blood 122 mg/dL (75-99)
[2018-08-24 06:57] LABS: Glucose,Whole Blood 110 mg/dL (75-99)
[2018-08-24] MEDS: PROPOFOL 1,000 MG in EMPTY BAG 1 BAG IV SCH (07:06)
--- NOTE | 2018-08-24 07:30 | XR ---
EXAMINATION TYPE: XR chest 1V portable DATE OF EXAM: 08/24/2018 Comparison: 08/23/2018 Clinical History: 67-year-old female Post Operative Cardiac Surgery Findings: ET tube is satisfactory. NG tube courses below the diaphragm. Bilateral chest tubes and mediastinal d rains are present. Right IJ Mansfield-Chucky catheter. The tip is not well seen beyond the lower right atriu m. Median sternotomy wires and screw fixation. Heart remains enlarged with diffuse interstitial densities. Some patchy left basilar opacity is also similar. Impression: 1. The distal aspect of the Mansfield-Chucky catheter is obscured and not clearly visualized beyond the righ t atrium. 2. Similar cardiomegaly and possible mild vascular congestion. Patchy left basilar opacity also persi sts, likely postsurgical atelectasis.
[2018-08-24] MEDS: IPRATROPIUM-ALBUTEROL 3 ML NEB INHALATION SCH ×4 (07:52→19:26)
[2018-08-24 07:59] LABS: ABG Base Excess -2.7 mmol/L; ABG HCO3 21 mmol/L (21-25); ABG Oxygen Saturation 99.4 % (94-97); ABG PCO2 31 mmHg (35-45); ABG PH 7.44 (7.35-7.45); ABG PO2 124 mmHg (83-108); ABG TCO2 22 mmol/L (19-24)
[2018-08-24] MEDS ORDERED: DEXMEDETOMIDINE/0.9% NACL(PMX) 400 MCG in EMPTY BAG 1 BAG IV SCH (08:00)
[2018-08-24 08:27] LABS: Glucose,Whole Blood 118 mg/dL (75-99)
[2018-08-24] MEDS: ceFAZolin 3 GM in SODIUM CHLORIDE 0.9% 100 ML IVPB SCH ×2 (08:37→17:15)
[2018-08-24] MEDS: CHLORHEXIDINE GLUCONATE 15 ML CUP MUCOUS MEM SCH (08:38)
[2018-08-24] MEDS: CLOPIDOGREL 75 MG TAB PO SCH (08:38)
[2018-08-24] MEDS: LACTATED RINGERS 1,000 ML IV SCH (08:38)
[2018-08-24] MEDS: ATORVASTATIN 40 MG TAB PO SCH (08:38)
[2018-08-24] MEDS: CINACALCET 30 MG TAB PO SCH ×2 (08:41→20:53)
--- NOTE | 2018-08-24 08:42 | P.PN ---
Subjective Progress Note Date: 08/24/18 Principal diagnosis: Non-ST elevation myocardial infarction, symptomatic multivessel coronary artery disease with left main disease, acute on chronic diastolic heart failure, chron ic atrial fibrillation, history of coronary artery disease with previous stent placement 2003, hypertension, hyperlipidemia, morbid obesity, peripheral vascular disease, bilateral carotid artery stenosis with totally occluded right ICA and left ICA with 80% stenosis, previous tobacco dependence, severe restrictive lung disease with preoperative FEV1 47% of predicted, chronic normocytic anemia, and osteoarthritis. POD #1 off-pump coronary artery bypass grafting 3 with sequential left internal mammary artery to the left anterior descending artery and diagonal, reverse saphenous vein graft to the obtuse marginal artery, ligation of the left atrial appendage with 35 mm AtriClip. Endovascular vein harvest of the left lower extremity from the knee to the groin level. Intraoperative transesophageal echocardiogram by anesthesia. Intraoperative and postoperative acute blood loss, unexpected, surgery given patient's preoperative anemia. Postoperative thrombocytopenia, expected outcome of surgery. Intraoperative V. fib requiring one shock with conversion to sinus rhythm, unexpected but potential outcome. The patient remains mechanically ventilated in the intensive care unit. She received 1 unit packed red blood cells intraoperatively and 2 units packed red blood cells postoperatively. Currently normal sinus rhythm. Hemodynamically stable on IV dopamine and amiodarone. Sedation turned off this morning, patient is neurologically intact, moves all extremities, nods head appropriately to questions. She has had no further episodes of hypotension or bradycardia. Objective - Vital Signs Vital signs: Vital Signs Temp 98.6 F 08/24/18 08:00 Pulse 74 08/24/18 08:04 Resp 31 H 08/24/18 08:00 BP 129/48 08/23/18 15:00 Pulse Ox 100 08/24/18 08:00 Intake & Output 08/23/18 08/24/18 08/24/18 18:59 06:59 18:59 Intake Total 8074.300 5525.874 112.323 Output Total 1044 1028 60 Balance 756.287 933.874 52.323 Weight 131.2 kg Intake: IV 842.3 1727.3 80.5 Albumin Human 5% 250 ml 250 250 In Empty Bag 1 bag @ 250 mls/hr IVPB Q1HR PRN Rx#: [id number] Amiodarone 300 mg In 49.8 215.8 Dextrose 5% in Water 250 ml @ 0.5 MG/MIN 25 mls/hr IV .Q10H PRN Rx#: [id number] CO/CI 40 380 20 DOPamine DRIP 800 mg In 21 7 Dextrose/Water 1 250ml. bag @ 2 MCG/KG/MIN 4.631 mls/hr IV .Q24H JUANJOSE Rx#: [id number] Lactated Ringers 1,000 ml 250 650 50 @ 20 mls/hr IV .Q24H JUANJOSE Rx#:[id number] Magnesium Sulfate-D5w Pmx 100 1 gm In Dextrose/Water 1 100ml.bag @ 100 mls/hr IVPB Q1H JUANJOSE Rx#: [id number] Nitroglycerin-D5w Pmx 50 4.5 19.5 1.5 mg In Dextrose/Water 1 250ml.bag @ 5 MCG/MIN 1.5 mls/hr IV .Q24H JUANJOSE Rx#: [id number] ceFAZolin 3 gm In Sodium 100 100 Chloride 0.9% 100 ml @ 100 mls/hr IVPB Q8HR JUANJOSE Rx#:[id number] pressure bag 24 105 9 Intake, IV Titration 27.987 234.574 31.823 Amount DOPamine DRIP 800 mg In 12.118 50.443 Dextrose/Water 1 250ml. bag @ 2 MCG/KG/MIN 4.631 mls/hr IV .Q24H JUANJOSE Rx#: [id number] Insulin Regular 100 unit 8.583 91.417 In Sodium Chloride 0.9% 100 ml @ Titrate IV .Q0M JUANJOSE Rx#:[id number] Nitroglycerin-D5w Pmx 50 26.05 mg In Dextrose/Water 1 250ml.bag @ 5 MCG/MIN 1.5 mls/hr IV .Q24H JUANJOSE Rx#: [id number] Propofol 1,000 mg In 7.286 92.714 5.773 Empty Bag 1 bag @ Titrate IV .Q0M JUANJOSE Rx#: [id number] Blood Product 930 Rc As-1 Unit 310 [id number] Rc As-1 Unit 310 [id number] Rc As-3 Unit 310 [id number] Output: Chest Tube Drainage 312 293 10 Left Pleural 133 93 0 Right Pleural/Mediastinal 179 200 10 Drainage 65 Left Lower Marrufo 65 Urine 482 670 50 Estimated Blood Loss 250 Other: Voiding Method Indwelling Catheter Indwelling Catheter ABP, PAP, CO, CI - Last Documented Arterial Blood Pressure 148/69 Pulmonary Artery Pressure 33/29 Cardiac Output 4.8 Cardiac Index 2.2 - Constitutional General appearance: Present: cooperative, no acute distress, obese - Respiratory Details: Lungs sounds diminished bilaterally. Respirations even, nonlabored on mechanical ventilation. Current settings assist control mode, FiO2 40%, tidal volume 450, respiratory rate 16, PEEP 10. ABGs on those settings 7.4/31/124/21/99%/-2.7. 8.0 ET tube present, 23 at the lip. Mediastinal/right pleural chest tube to continuous wall suction, 110 mL serosanguineous drainage overnight, 450 mL since surgery. Left pleural chest tube to continuous wall suction, 45 mL serosanguineous drainage overnight, 200 mL since surgery. No air leaks present. - Cardiovascular Details: S1, S2 present. Regular rate and rhythm, sinus rhythm on telemetry. Sternum stable. Palpable peripheral pulses bilaterally. Trace generalized edema present. Right internal jugular Fromberg/Cordis, left radial arterial line present. Last CO/CI 5.1/2.3 on 3 mcg/kg/min of dopamine and 0.5 mg/m of amiodarone. Heart hugger, antiembolism stockings, SCDs present. - Gastrointestinal Gastrointestinal Comment(s): Abdomen soft, nontender, nondistended, obese. Hypoactive bowel sounds present 4 quadrants. OG tube present to low intermittent suction with minimal green drainage. - Genitourinary Genitourinary Comment(s): Sotelo present draining clear, yellow urine. Output 30-75 mL/h overnight. - Integumentary Integumentary Comment(s): Skin is warm and dry with evidence of good perfusion. Anterior chest incision well approximated and covered with dry intact dressing. Left lower extremity EVH site well approximated, JOAQUÍN drain present with minimal serosanguineous drainage. - Neurologic Neurologic: Present: CNII-XII intact - Musculoskeletal Musculoskeletal: Present: strength equal bilaterally - Psychiatric Psychiatric Comment(s): Alert and following commands on mechanical ventilation, no sedation. - Allied health notes Allied health notes reviewed: nursing - Labs CBC & Chem 7: 08/24/18 03:05 08/24/18 03:05 Labs: Abnormal Lab Results - Last 24 Hours (Table) 08/22/18 08/23/18 08/23/18 Range/Units 04:15 08:36 10:17 WBC (3.8-10.6) k/uL RBC (3.80-5.40) m/uL Hgb (11.4-16.0) gm/dL Hct (34.0-46.0) % RDW (11.5-15.5) % Plt Count (150-450) k/uL Neutrophils # (1.3-7.7) k/uL Lymphocytes # (1.0-4.8) k/uL PT (9.0-12.0) sec INR (<1.2) ABG pH (7.35-7.45) ABG pCO2 47 H (35-45) mmHg ABG pO2 251 H 222 H (83-108) mmHg ABG HCO3 27 H (21-25) mmol/L ABG Total CO2 29 H 25 H (19-24) mmol/L ABG O2 Saturation 100.0 H 100.0 H (94-97) % ABG Hematocrit 27 L 23 L (34.0-46.0) % ABG Ionized Calcium 5.4 H (4.5-5.3) mg/dL ABG Glucose 103 H 112 H (75-99) mg/dL ABG Lactic Acid 1.7 H 1.9 H (0.5-1.6) mmol/L Hemoglobin 8.7 L 7.5 L (11.4-16.0) gm/dL Sodium (137-145) mmol/L Chloride (98-107) mmol/L Carbon Dioxide (22-30) mmol/L BUN (7-17) mg/dL Glucose (74-99) mg/dL POC Glucose (mg/dL) (75-99) mg/dL Ionized Calcium Saúl (4.5-5.3) mg/dL Total Bilirubin (0.2-1.3) mg/dL Total Protein (6.3-8.2) g/dL Albumin (3.5-5.0) g/dL Arterial Blood Glucose 103 H 112 H (75-99) mg/dL Crossmatch See Detail 08/23/18 08/23/18 08/23/18 Range/Units 10:53 12:10 13:20 WBC (3.8-10.6) k/uL RBC (3.80-5.40) m/uL Hgb (11.4-16.0) gm/dL Hct (34.0-46.0) % RDW (11.5-15.5) % Plt Count (150-450) k/uL Neutrophils # (1.3-7.7) k/uL Lymphocytes # (1.0-4.8) k/uL PT (9.0-12.0) sec INR (<1.2) ABG pH 7.34 L (7.35-7.45) ABG pCO2 (35-45) mmHg ABG pO2 228 H (83-108) mmHg ABG HCO3 20 L (21-25) mmol/L ABG Total CO2 (19-24) mmol/L ABG O2 Saturation 100.0 H 98.4 H (94-97) % ABG Hematocrit 21 L 18 L* (34.0-46.0) % ABG Ionized Calcium 6.0 H* (4.5-5.3) mg/dL ABG Glucose 125 H 133 H (75-99) mg/dL ABG Lactic Acid 2.2 H* 4.2 H* (0.5-1.6) mmol/L Hemoglobin 6.8 L* 5.9 L* (11.4-16.0) gm/dL Sodium (137-145) mmol/L Chloride (98-107) mmol/L Carbon Dioxide (22-30) mmol/L BUN (7-17) mg/dL Glucose (74-99) mg/dL POC Glucose (mg/dL) 172 H (75-99) mg/dL Ionized Calcium Saúl (4.5-5.3) mg/dL Total Bilirubin (0.2-1.3) mg/dL Total Protein (6.3-8.2) g/dL Albumin (3.5-5.0) g/dL Arterial Blood Glucose 125 H 133 H (75-99) mg/dL Crossmatch 08/23/18 08/23/18 08/23/18 Range/Units 13:45 13:45 13:45 WBC 13.4 H (3.8-10.6) k/uL RBC 2.44 L (3.80-5.40) m/uL Hgb 7.2 L D (11.4-16.0) gm/dL Hct 21.5 L (34.0-46.0) % RDW 21.8 H (11.5-15.5) % Plt Count (150-450) k/uL Neutrophils # 11.6 H (1.3-7.7) k/uL Lymphocytes # (1.0-4.8) k/uL PT 14.2 H (9.0-12.0) sec INR 1.4 H (<1.2) ABG pH (7.35-7.45) ABG pCO2 (35-45) mmHg ABG pO2 (83-108) mmHg ABG HCO3 (21-25) mmol/L ABG Total CO2 (19-24) mmol/L ABG O2 Saturation (94-97) % ABG Hematocrit (34.0-46.0) % ABG Ionized Calcium (4.5-5.3) mg/dL ABG Glucose (75-99) mg/dL ABG Lactic Acid (0.5-1.6) mmol/L Hemoglobin (11.4-16.0) gm/dL Sodium 136 L (137-145) mmol/L Chloride (98-107) mmol/L Carbon Dioxide 20 L (22-30) mmol/L BUN 19 H (7-17) mg/dL Glucose 153 H (74-99) mg/dL POC Glucose (mg/dL) (75-99) mg/dL Ionized Calcium Saúl 5.7 H (4.5-5.3) mg/dL Total Bilirubin (0.2-1.3) mg/dL Total Protein 4.8 L (6.3-8.2) g/dL Albumin 2.8 L (3.5-5.0) g/dL Arterial Blood Glucose (75-99) mg/dL Crossmatch 08/23/18 08/23/18 08/23/18 Range/Units 14:01 14:22 15:11 WBC (3.8-10.6) k/uL RBC (3.80-5.40) m/uL Hgb (11.4-16.0) gm/dL Hct (34.0-46.0) % RDW (11.5-15.5) % Plt Count (150-450) k/uL Neutrophils # (1.3-7.7) k/uL Lymphocytes # (1.0-4.8) k/uL PT (9.0-12.0) sec INR (<1.2) ABG pH 7.22 L (7.35-7.45) ABG pCO2 52 H (35-45) mmHg ABG pO2 167 H (83-108) mmHg ABG HCO3 (21-25) mmol/L ABG Total CO2 (19-24) mmol/L ABG O2 Saturation 99.2 H (94-97) % ABG Hematocrit (34.0-46.0) % ABG Ionized Calcium (4.5-5.3) mg/dL ABG Glucose (75-99) mg/dL ABG Lactic Acid (0.5-1.6) mmol/L Hemoglobin (11.4-16.0) gm/dL Sodium (137-145) mmol/L Chloride (98-107) mmol/L Carbon Dioxide (22-30) mmol/L BUN (7-17) mg/dL Glucose (74-99) mg/dL POC Glucose (mg/dL) 183 H 162 H (75-99) mg/dL Ionized Calcium Saúl (4.5-5.3) mg/dL Total Bilirubin (0.2-1.3) mg/dL Total Protein (6.3-8.2) g/dL Albumin (3.5-5.0) g/dL Arterial Blood Glucose (75-99) mg/dL Crossmatch 08/23/18 08/23/18 08/23/18 Range/Units 16:08 16:32 17:14 WBC (3.8-10.6) k/uL RBC (3.80-5.40) m/uL Hgb (11.4-16.0) gm/dL Hct (34.0-46.0) % RDW (11.5-15.5) % Plt Count (150-450) k/uL Neutrophils # (1.3-7.7) k/uL Lymphocytes # (1.0-4.8) k/uL PT (9.0-12.0) sec INR (<1.2) ABG pH 7.30 L (7.35-7.45) ABG pCO2 (35-45) mmHg ABG pO2 158 H (83-108) mmHg ABG HCO3 (21-25) mmol/L ABG Total CO2 (19-24) mmol/L ABG O2 Saturation 99.3 H (94-97) % ABG Hematocrit (34.0-46.0) % ABG Ionized Calcium (4.5-5.3) mg/dL ABG Glucose (75-99) mg/dL ABG Lactic Acid (0.5-1.6) mmol/L Hemoglobin (11.4-16.0) gm/dL Sodium (137-145) mmol/L Chloride (98-107) mmol/L Carbon Dioxide (22-30) mmol/L BUN (7-17) mg/dL Glucose (74-99) mg/dL POC Glucose (mg/dL) 157 H 176 H (75-99) mg/dL Ionized Calcium Saúl (4.5-5.3) mg/dL Total Bilirubin (0.2-1.3) mg/dL Total Protein (6.3-8.2) g/dL Albumin (3.5-5.0) g/dL Arterial Blood Glucose (75-99) mg/dL Crossmatch 08/23/18 08/23/18 08/23/18 Range/Units 17:49 18:11 19:24 WBC 13.3 H (3.8-10.6) k/uL RBC 3.21 L (3.80-5.40) m/uL Hgb 8.9 L D (11.4-16.0) gm/dL Hct 27.9 L (34.0-46.0) % RDW 21.3 H (11.5-15.5) % Plt Count 116 L (150-450) k/uL Neutrophils # 12.2 H (1.3-7.7) k/uL Lymphocytes # 0.5 L (1.0-4.8) k/uL PT (9.0-12.0) sec INR (<1.2) ABG pH (7.35-7.45) ABG pCO2 (35-45) mmHg ABG pO2 (83-108) mmHg ABG HCO3 (21-25) mmol/L ABG Total CO2 (19-24) mmol/L ABG O2 Saturation (94-97) % ABG Hematocrit (34.0-46.0) % ABG Ionized Calcium (4.5-5.3) mg/dL ABG Glucose (75-99) mg/dL ABG Lactic Acid (0.5-1.6) mmol/L Hemoglobin (11.4-16.0) gm/dL Sodium (137-145) mmol/L Chloride (98-107) mmol/L Carbon Dioxide (22-30) mmol/L BUN (7-17) mg/dL Glucose (74-99) mg/dL POC Glucose (mg/dL) 159 H 156 H (75-99) mg/dL Ionized Calcium Saúl (4.5-5.3) mg/dL Total Bilirubin (0.2-1.3) mg/dL Total Protein (6.3-8.2) g/dL Albumin (3.5-5.0) g/dL Arterial Blood Glucose (75-99) mg/dL Crossmatch 08/23/18 08/23/18 08/23/18 Range/Units 20:24 20:30 20:30 WBC 12.6 H (3.8-10.6) k/uL RBC 3.07 L (3.80-5.40) m/uL Hgb 9.0 L (11.4-16.0) gm/dL Hct 26.4 L (34.0-46.0) % RDW 21.4 H (11.5-15.5) % Plt Count 119 L (150-450) k/uL Neutrophils # (1.3-7.7) k/uL Lymphocytes # (1.0-4.8) k/uL PT 12.3 H (9.0-12.0) sec INR 1.2 H (<1.2) ABG pH (7.35-7.45) ABG pCO2 (35-45) mmHg ABG pO2 (83-108) mmHg ABG HCO3 (21-25) mmol/L ABG Total CO2 (19-24) mmol/L ABG O2 Saturation (94-97) % ABG Hematocrit (34.0-46.0) % ABG Ionized Calcium (4.5-5.3) mg/dL ABG Glucose (75-99) mg/dL ABG Lactic Acid (0.5-1.6) mmol/L Hemoglobin (11.4-16.0) gm/dL Sodium (137-145) mmol/L Chloride (98-107) mmol/L Carbon Dioxide (22-30) mmol/L BUN (7-17) mg/dL Glucose (74-99) mg/dL POC Glucose (mg/dL) 156 H (75-99) mg/dL Ionized Calcium Saúl (4.5-5.3) mg/dL Total Bilirubin (0.2-1.3) mg/dL Total Protein (6.3-8.2) g/dL Albumin (3.5-5.0) g/dL Arterial Blood Glucose (75-99) mg/dL Crossmatch 08/23/18 08/23/18 08/23/18 Range/Units 20:30 21:11 22:16 WBC (3.8-10.6) k/uL RBC (3.80-5.40) m/uL Hgb (11.4-16.0) gm/dL Hct (34.0-46.0) % RDW (11.5-15.5) % Plt Count (150-450) k/uL Neutrophils # (1.3-7.7) k/uL Lymphocytes # (1.0-4.8) k/uL PT (9.0-12.0) sec INR (<1.2) ABG pH (7.35-7.45) ABG pCO2 (35-45) mmHg ABG pO2 (83-108) mmHg ABG HCO3 (21-25) mmol/L ABG Total CO2 (19-24) mmol/L ABG O2 Saturation (94-97) % ABG Hematocrit (34.0-46.0) % ABG Ionized Calcium (4.5-5.3) mg/dL ABG Glucose (75-99) mg/dL ABG Lactic Acid (0.5-1.6) mmol/L Hemoglobin (11.4-16.0) gm/dL Sodium (137-145) mmol/L Chloride (98-107) mmol/L Carbon Dioxide (22-30) mmol/L BUN 19 H (7-17) mg/dL Glucose 139 H (74-99) mg/dL POC Glucose (mg/dL) 142 H 141 H (75-99) mg/dL Ionized Calcium Saúl 5.6 H (4.5-5.3) mg/dL Total Bilirubin 2.0 H (0.2-1.3) mg/dL Total Protein 5.5 L (6.3-8.2) g/dL Albumin (3.5-5.0) g/dL Arterial Blood Glucose (75-99) mg/dL Crossmatch 08/23/18 08/24/18 08/24/18 Range/Units 23:09 00:03 00:56 WBC (3.8-10.6) k/uL RBC (3.80-5.40) m/uL Hgb (11.4-16.0) gm/dL Hct (34.0-46.0) % RDW (11.5-15.5) % Plt Count (150-450) k/uL Neutrophils # (1.3-7.7) k/uL Lymphocytes # (1.0-4.8) k/uL PT (9.0-12.0) sec INR (<1.2) ABG pH (7.35-7.45) ABG pCO2 (35-45) mmHg ABG pO2 (83-108) mmHg ABG HCO3 (21-25) mmol/L ABG Total CO2 (19-24) mmol/L ABG O2 Saturation (94-97) % ABG Hematocrit (34.0-46.0) % ABG Ionized Calcium (4.5-5.3) mg/dL ABG Glucose (75-99) mg/dL ABG Lactic Acid (0.5-1.6) mmol/L Hemoglobin (11.4-16.0) gm/dL Sodium (137-145) mmol/L Chloride (98-107) mmol/L Carbon Dioxide (22-30) mmol/L BUN (7-17) mg/dL Glucose (74-99) mg/dL POC Glucose (mg/dL) 138 H 123 H 111 H (75-99) mg/dL Ionized Calcium Saúl (4.5-5.3) mg/dL Total Bilirubin (0.2-1.3) mg/dL Total Protein (6.3-8.2) g/dL Albumin (3.5-5.0) g/dL Arterial Blood Glucose (75-99) mg/dL Crossmatch 08/24/18 08/24/18 08/24/18 Range/Units 02:04 03:05 03:05 WBC (3.8-10.6) k/uL RBC 2.95 L (3.80-5.40) m/uL Hgb 8.5 L (11.4-16.0) gm/dL Hct 25.5 L (34.0-46.0) % RDW 21.5 H (11.5-15.5) % Plt Count 113 L (150-450) k/uL Neutrophils # 8.8 H (1.3-7.7) k/uL Lymphocytes # 0.7 L (1.0-4.8) k/uL PT (9.0-12.0) sec INR (<1.2) ABG pH (7.35-7.45) ABG pCO2 (35-45) mmHg ABG pO2 (83-108) mmHg ABG HCO3 (21-25) mmol/L ABG Total CO2 (19-24) mmol/L ABG O2 Saturation (94-97) % ABG Hematocrit (34.0-46.0) % ABG Ionized Calcium (4.5-5.3) mg/dL ABG Glucose (75-99) mg/dL ABG Lactic Acid (0.5-1.6) mmol/L Hemoglobin (11.4-16.0) gm/dL Sodium (137-145) mmol/L Chloride 108 H (98-107) mmol/L Carbon Dioxide 20 L (22-30) mmol/L BUN (7-17) mg/dL Glucose 110 H (74-99) mg/dL POC Glucose (mg/dL) 124 H (75-99) mg/dL Ionized Calcium Saúl 5.7 H (4.5-5.3) mg/dL Total Bilirubin 1.8 H (0.2-1.3) mg/dL Total Protein 5.3 L (6.3-8.2) g/dL Albumin 3.4 L (3.5-5.0) g/dL Arterial Blood Glucose (75-99) mg/dL Crossmatch 08/24/18 08/24/18 08/24/18 Range/Units 03:06 03:52 05:21 WBC (3.8-10.6) k/uL RBC (3.80-5.40) m/uL Hgb (11.4-16.0) gm/dL Hct (34.0-46.0) % RDW (11.5-15.5) % Plt Count (150-450) k/uL Neutrophils # (1.3-7.7) k/uL Lymphocytes # (1.0-4.8) k/uL PT (9.0-12.0) sec INR (<1.2) ABG pH (7.35-7.45) ABG pCO2 (35-45) mmHg ABG pO2 (83-108) mmHg ABG HCO3 (21-25) mmol/L ABG Total CO2 (19-24) mmol/L ABG O2 Saturation (94-97) % ABG Hematocrit (34.0-46.0) % ABG Ionized Calcium (4.5-5.3) mg/dL ABG Glucose (75-99) mg/dL ABG Lactic Acid (0.5-1.6) mmol/L Hemoglobin (11.4-16.0) gm/dL Sodium (137-145) mmol/L Chloride (98-107) mmol/L Carbon Dioxide (22-30) mmol/L BUN (7-17) mg/dL Glucose (74-99) mg/dL POC Glucose (mg/dL) 138 H 130 H 111 H (75-99) mg/dL Ionized Calcium Saúl (4.5-5.3) mg/dL Total Bilirubin (0.2-1.3) mg/dL Total Protein (6.3-8.2) g/dL Albumin (3.5-5.0) g/dL Arterial Blood Glucose (75-99) mg/dL Crossmatch 08/24/18 08/24/18 08/24/18 Range/Units 06:04 06:54 07:57 WBC (3.8-10.6) k/uL RBC (3.80-5.40) m/uL Hgb (11.4-16.0) gm/dL Hct (34.0-46.0) % RDW (11.5-15.5) % Plt Count (150-450) k/uL Neutrophils # (1.3-7.7) k/uL Lymphocytes # (1.0-4.8) k/uL PT (9.0-12.0) sec INR (<1.2) ABG pH (7.35-7.45) ABG pCO2 31 L (35-45) mmHg ABG pO2 124 H (83-108) mmHg ABG HCO3 (21-25) mmol/L ABG Total CO2 (19-24) mmol/L ABG O2 Saturation 99.4 H (94-97) % ABG Hematocrit (34.0-46.0) % ABG Ionized Calcium (4.5-5.3) mg/dL ABG Glucose (75-99) mg/dL ABG Lactic Acid (0.5-1.6) mmol/L Hemoglobin (11.4-16.0) gm/dL Sodium (137-145) mmol/L Chloride (98-107) mmol/L Carbon Dioxide (22-30) mmol/L BUN (7-17) mg/dL Glucose (74-99) mg/dL POC Glucose (mg/dL) 122 H 110 H (75-99) mg/dL Ionized Calcium Saúl (4.5-5.3) mg/dL Total Bilirubin (0.2-1.3) mg/dL Total Protein (6.3-8.2) g/dL Albumin (3.5-5.0) g/dL Arterial Blood Glucose (75-99) mg/dL Crossmatch - Imaging and Cardiology Chest x-ray: report reviewed, image reviewed Assessment and Plan Assessment: 1. Non-ST elevation myocardial infarction 2. Symptomatic multivessel coronary artery disease with left main disease, status post off-pump coronary artery bypass surgery 3. Acute on chronic diastolic heart failure 4. Chronic atrial fibrillation on Eliquis at home for anticoagulation, status post left atrial appendage ligation 5. History of coronary artery disease with previous stent placement in 2003 6. Hypertension 7. Hyperlipidemia 8. Morbid obesity 9. Peripheral vascular disease 10. Bilateral carotid artery stenosis with totally occluded right ICA and a left ICA with 80% stenosis 11. Previous tobacco dependence 12. Severe restrictive lung disease with preoperative FEV1 47% of predicted 13. Chronic normocytic anemia, with intraoperative and postoperative acute blood loss anemia, status post packed red blood cell transfusion 14. Osteoarthritis 15. Postoperative thrombocytopenia, expected 16. Intraoperative V. fib requiring one shock with conversion to sinus rhythm, unexpected Plan: 1. Continue to maximize medical therapy with aspirin, statin, Plavix, beta louann therapy. Will increase beta louann therapy as tolerated. 2. Discontinue IV nitro. Will wean dopamine once extubated. Discontinue IV amiodarone. Will continue to hold Eliquis for now. 3. Ventilator management per pulmonology. Wean to extubate as tolerated. 4. Once extubated, encourage incentive spirometry use 10 times every hour while awake. 5. Once extubated, increase activity as tolerated. PT/OT/cardiac rehab following. 6. Bronchodilators per pulmonology. 7. Will monitor daily labs and x-rays. Electrolyte replacement per protocol. No further transfusions at this point. 8. Encourage continued smoking cessation. 9. GI/Protonix, DVT prophylaxis. 10. Insulin management per primary care service. 11. Pain control with current medication regimen. 12. More recommendations to follow based on patient's clinical course. Time with Patient: Greater than 30
--- NOTE | 2018-08-24 08:59 | ECHOF ---
Referral Reason:effusion MEASUREMENTS -------- HEIGHT: 152.4 cm WEIGHT: 123.4 kg BP: FINDINGS -------- Limited Study to rule out Pericardial Effusion: Pt had CABG 08/23/18. There is no pericardial effusion. CONCLUSIONS -------- 1. Limited Study to rule out Pericardial Effusion: Pt had CABG 08/23/18. 2. There is no pericardial effusion. SWATCH PASTER: Veronica Voss RDCS
[2018-08-24] MEDS ORDERED: PANTOPRAZOLE 40 MG/10 ML VIAL IVP SCH (09:00)
[2018-08-24] MEDS ORDERED: METOPROLOL TARTRATE 12.5 MG TAB PO SCH (09:00)
[2018-08-24] MEDS ORDERED: ASPIRIN 325 MG TAB PO SCH (09:00)
[2018-08-24] MEDS: INSULIN REGULAR 100 UNIT in SODIUM CHLORIDE 0.9% 100 ML IV SCH (09:16)
[2018-08-24 09:21] LABS: Glucose,Whole Blood 129 mg/dL (75-99)
[2018-08-24 09:33] LABS: ABG Base Excess -3.6 mmol/L; ABG HCO3 21 mmol/L (21-25); ABG Oxygen Saturation 98.8 % (94-97); ABG PCO2 33 mmHg (35-45); ABG PH 7.41 (7.35-7.45); ABG PO2 108 mmHg (83-108); ABG TCO2 22 mmol/L (19-24)
[2018-08-24] MEDS: ALBUMIN HUMAN 5% 250 ML in EMPTY BAG 1 BAG IVPB PRN ×2 (10:08→11:01)
[2018-08-24 10:31] LABS: Glucose,Whole Blood 125 mg/dL (75-99)
--- NOTE | 2018-08-24 11:54 | P.PN ---
Subjective Progress Note Date: 08/24/18 Principal diagnosis: Multivessel coronary artery disease, acute non-ST elevation myocardial infarction 67-year-old female patient with known history of chronic atrial fibrillation, coronary artery disease with previous coronary intervention and stenting back in 2003, hypertension and hyperlipidemia and CHF with diastolic heart failure and an ejection fraction of 50%. The patient is a chronic ex-smoker and she has quit smoking in March 2018 and she was peripheral artery disease and chronic osteoarthritis and she is obese with a BMI of 53.6. The patient was recently admitted to the hospital on 08/03/2018 for symptoms of worsening shortness of breath and lightheadedness. During the admission the patient abnormal troponins. The patient back then diffuse cardiac catheterization and she went home. She came back to the emergency department on 08/15/2018 with progressive dyspnea and lower extremity swelling. At that time she was seen by cardiology. EKG showed atrial fibrillation controlled rate. The patient had a normal kidney function. The patient underwent a cardiac catheterization and showed 80% stenosis in the left main, 70% stenosis of diagonal artery, 80% stenosis of the proximal circumflex artery, totally occluded RCA with collaterals from the left system. The patient is currently in the intensive care unit. She is on IV heparin. The patient will be seen by cardiothoracic surgery team for a surgical evaluation and recommendations for revascularization surgery. Her chest x-ray showing some limited scarring in segment V changes in lung bases bilaterally. There is also some mild cardiomegaly. The patient is currently on Bumex 1 mg twice a day. The patient is also on aspirin, IV heparin, lisinopril 2.5 mg by mouth daily Coreg 3.125 mg by mouth twice a day. On today's evaluation of 08/18/2018 the patient is hemodynamically stable, co mfortable free of any chest pain and free of any shortness of breath. She is still awaiting cardiac bypass surgery. Based on our calculation, her surgical risk is in the order of 11% mortality. The patient's FEV1 is normal at of 47% of predicted and this is consistent with restrictive lung disease due to obesity. She also has bilateral carotid artery stenosis on the Dopplers and the patient would have a CT angios of the neck. The patient has significant plaquing in the internal carotid artery on the left in the order of 70%. There is also bilateral external carotid artery disease in the order of 50-70%. The patient is currently on IV heparin. She is also on Bumex 1 mg twice a day. No angina. No other complaints otherwise for now. Reevaluated today on 08/19/2018, patient remains in the ICU, comfortable, denies any chest pain, denies any shortness of breath. Patient is being considered for myocardial revascularization, she was already cleared by surgery by Dr. Banerjee, FEV1 was noted to be at 47% of the predicted value, she has restrictive lung disease secondary to obesity. And she was found to have bilateral carotid artery disease on Doppler and on CT angiogram of the neck showing 80% stenosis of proximal left internal carotid artery, occlusion of the right internal carotid artery at its origin. Patient is not requiring any pressors at this point, she is hemodynamically stable, and again she is asymptomatic O2 sat is 94% on 2 L nasal cannula, doing great with incentive spirometry. Remains on heparin drip for atrial fibrillation, CBC showed a hemoglobin of 7.8 WBC count is 7.6, electrolytes are normal renal profile is normal. Patient was seen today on 08/20/2018, remains in the intensive care unit, but she is being transferred to a monitor bed on selective. She is asymptomatic, in no distress, no cough no wheezing no shortness of breath no chest pain, she is hemodynamically stable, O2 saturations 97% on room air, doing extremely well with incentive spirometry, she had some loose stools last night, her labs this morning are relatively unremarkable, remains on heparin drip for atrial fibrillation, and my understanding is her surgery is scheduled in the next 3 days. Reevaluated today on 08/21/2018, patient is doing well, asymptomatic, scheduled to undergo myocardial revascularization in 2 days. No cough no wheezing no fever no chills no hemoptysis. Presently and a recliner, asymptomatic. Compliant with incentive spirometry, CBC is relatively normal hemoglobin is 9.5, electrode are normal. Reevaluated today on 08/22/2018, patient remains in the ICU, she is an overflow from the cardiac floor. Scheduled to undergo myocardial revascularization tomorrow. Patient is doing well with incentive spirometry, presently on room air, ambulatory, in no distress. CBC is relatively normal hemoglobin is 7.9 electrolytes and renal profile are normal. Patient remains on heparin, stool for occult blood was negative on 08/18. Had previous history of hemorrhoids On 08/23/2018 patient seen in follow-up in the intensive care unit, she underwent myocardial revascularization today by Dr. Palm, off-pump three- vessel coronary artery bypass, with sequential MURDOCK to LAD and the diagonal saphenous vein graft to obtuse marginal with ligation of left atrial appendage with Atri-clip. Patient did experience a run of V. fib Intra-Op after closing of the chest, she was defibrillated once, and converted to sinus rhythm. Was started on amiodarone drip per protocol. Patient was then noted to be bradycardic, requiring dopamine drip, postop hemoglobin was 7.2, intraoperatively her hemoglobin was as low as 5. Preoperative hemoglobin was 8.7. Patient received a total of 4 units of packed red blood cells. She was given albumin. Did have issues with low cardiac output and indices, chair improving with the blood transfusions and volume resuscitation. Most currently her cardiac output is 3.5, and cardiac index is 1.9. PA pressures of 33/26, blo od pressure is 108/41, she was hypothermic with a temperature of 93.9, and she is being rewarmed, and blood transfusion is being warmed. He is intubated, on mechanical ventilator, with current vent settings assist control mode of ventilation, with a rate of 12, tidal volume 400, FiO2 100% and PEEP of 10, postop blood gases were obtained, and showed pO2 of 167, pCO2 of 51, and pH of 7.22. Ventilator adjustments were made, rate was admitted to 16, tidal volume was increased to 450. Repeat blood gas was obtained, and showed improvement, with pO2 of 158, pCO2 44, and pH of 7.30. Other IVs include lactated Ringer's at a rate of 50 ML per hour, nitroglycerin drip is currently at 5 mics per min tanana, insulin drip is at 6 units per hour, amiodarone drip is currently at 0.5 mg per hour, Diprivan and is at 5 mics per kilo per minute, dopamine is currently at 3 mics per kilo per minute. Postop chest x-ray has been reviewed by Dr. Wheeler, and showed ET tube, OG tube, chest tubes, [place] catheter all appropriately placed, no residual pneumothoraces, basilar atelectasis. Patient has left pleural and right pleural/mediastinal chest tubes in place, with small amount of sanguinous drainage, ID season, and patient is nonoliguric. Sternal incision is clean dry and intact, chest tube sites are clean dry and intact. On 08/24/2018, patient is postoperative day #1, presently on mechanical ve ntilation, couldn't extubated the patient last night mostly because of her respiratory rate was quite high on CPAP. Today the patient was switched to Precedex, and attempted another trial of weaning, her weaning parameters were reviewed, and after an hour on CPAP, patient tolerated weaning quite well, and she was extubated.CPAP ABG was noted to be excellent, and the patient was noted to be calm her on Precedex.chest x-ray this morning showed cardiomegaly and mild vascular congestion left basilar atelectasis is also noted.she did receive a total of 1 unit of packed RBCs intraoperatively and 3 units postoperatively. Patient is postoperative day #1, off pump coronary artery bypass grafting 3 with sequential MURDOCK to LAD, and diagonal, reverse saphenous graft to obtuse marginal artery.labs today showed a 70% of 10 hemoglobin of 8.5.electrolytes and renal profile are normal Objective - Vital Signs Vital signs: Vital Signs Temp 98.2 F 08/24/18 10:00 Pulse 75 08/24/18 11:15 Resp 31 H 08/24/18 11:15 BP 85/49 08/24/18 11:15 Pulse Ox 97 08/24/18 11:15 Intake & Output 08/23/18 08/24/18 08/24/18 18:59 06:59 18:59 Intake Total 7887.568 8030.874 1225.988 Output Total 1044 1028 348 Balance 756.287 933.874 877.988 Weight 131.2 kg Intake: IV 842.3 1727.3 887.5 Albumin Human 5% 250 ml 250 250 500 In Empty Bag 1 bag @ 250 mls/hr IVPB Q1HR PRN Rx#: [id number] Amiodarone 300 mg In 49.8 215.8 Dextrose 5% in Water 250 ml @ 0.5 MG/MIN 25 mls/hr IV .Q10H PRN Rx#: [id number] CO/CI 40 380 70 DOPamine DRIP 800 mg In 21 7 Dextrose/Water 1 250ml. bag @ 2 MCG/KG/MIN 4.631 mls/hr IV .Q24H [facility] Rx#: [id number] Lactated Ringers 1,000 ml 250 650 180 @ 20 mls/hr IV .Q24H [facility] Rx#:[id number] Magnesium Sulfate-D5w Pmx 100 1 gm In Dextrose/Water 1 100ml.bag @ 100 mls/hr IVPB Q1H [facility] Rx#: [id number] Nitroglycerin-D5w Pmx 50 4.5 19.5 1.5 mg In Dextrose/Water 1 250ml.bag @ 5 MCG/MIN 1.5 mls/hr IV .Q24H [facility] Rx#: [id number] ceFAZolin 3 gm In Sodium 100 100 100 Chloride 0.9% 100 ml @ 100 mls/hr IVPB Q8HR [facility] Rx#:[id number] pressure bag 24 105 36 Intake, IV Titration 27.987 234.574 338.488 Amount Amiodarone 360 mg In 200 Dextrose 5% in Water 200 ml @ 1 MG/MIN 33.333 mls/ hr IV .Q6H1M [facility] Rx#: [id number] DOPamine DRIP 800 mg In 12.118 50.443 88.188 Dextrose/Water 1 250ml. bag @ 2 MCG/KG/MIN 4.631 mls/hr IV .Q24H [facility] Rx#: [id number] Dexmedetomidine/0.9% NaCl 18.477 (Pmx) 400 mcg In Empty Bag 1 bag @ Titrate IV . Q0M [facility] Rx#:[id number] Insulin Regular 100 unit 8.583 91.417 In Sodium Chloride 0.9% 100 ml @ Titrate IV .Q0M [facility] Rx#:[id number] Nitroglycerin-D5w Pmx 50 26.05 mg In Dextrose/Water 1 250ml.bag @ 5 MCG/MIN 1.5 mls/hr IV .Q24H [facility] Rx#: [id number] Propofol 1,000 mg In 7.286 92.714 5.773 Empty Bag 1 bag @ Titrate IV .Q0M [facility] Rx#: [id number] Blood Product 930 Rc As-1 Unit 310 [id number] Rc As-1 Unit 310 [id number] Rc As-3 Unit 310 [id number] Output: Chest Tube Drainage 312 293 158 Left Pleural 133 93 8 Right Pleural/Mediastinal 179 200 150 Drainage 65 0 Left [place] 65 0 Urine 482 670 190 Estimated Blood Loss 250 Other: Voiding Method Indwelling Catheter Indwelling Catheter Indwelling Catheter ABP, PAP, CO, CI - Last Documented Arterial Blood Pressure 113/58 Pulmonary Artery Pressure 37/29 Cardiac Output 4.4 Cardiac Index 2.0 - Exam GENERAL EXAM: Sedated, obese 67-year-old white female, intubated, on mechanical ventilator, on Precedex drip, follows all simple instructions. HEENT: PERRLA, EOMI, no neck masses, no JVD, endotracheal tube is intact, orogastric tube is intact. Moist mucous membranes. Multiple lines were noted CHEST: No chest wall deformity. Symmetrical expansion. Midsternal incision is clean dry and intact, sternum is covered with surgical dressing, mediastinal, and right pleural, and left pleural chest tubes are in place, LUNGS: Equal air entry with no crackles, wheeze, rhonchi or dullness.slightly diminished breath sounds at the left base CVS: Regular rate and rhythm, normal S1 and S2, no gallops, no murmurs, no rubs ABDOMEN: Soft, nontender. No hepatosplenomegaly, normal bowel sounds, no gu arding or rigidity. EXTREMITIES: No clubbing, no edema, no cyanosis, 2+ pulses and upper and lower e xtremities. MUSCULOSKELETAL: Muscle strength and tone normal. SPINE: No scoliosis or deformity SKIN: No rashes CENTRAL NERVOUS SYSTEM: alert oriented 3, no gross focal neurologic deficit follows all instructions while on mechanical ventilation. - Labs CBC & Chem 7: 08/24/18 03:05 08/24/18 03:05 Labs: Abnormal Lab Results - Last 24 Hours (Table) 08/22/18 08/23/18 08/23/18 Range/Units 04:15 08:36 10:17 WBC (3.8-10.6) k/uL RBC (3.80-5.40) m/uL Hgb (11.4-16.0) gm/dL Hct (34.0-46.0) % RDW (11.5-15.5) % Plt Count (150-450) k/uL Neutrophils # (1.3-7.7) k/uL Lymphocytes # (1.0-4.8) k/uL PT (9.0-12.0) sec INR (<1.2) ABG pH (7.35-7.45) ABG pCO2 47 H (35-45) mmHg ABG pO2 251 H 222 H (83-108) mmHg ABG HCO3 27 H (21-25) mmol/L ABG Total CO2 29 H 25 H (19-24) mmol/L ABG O2 Saturation 100.0 H 100.0 H (94-97) % ABG Hematocrit 27 L 23 L (34.0-46.0) % ABG Ionized Calcium 5.4 H (4.5-5.3) mg/dL ABG Glucose 103 H 112 H (75-99) mg/dL ABG Lactic Acid 1.7 H 1.9 H (0.5-1.6) mmol/L Hemoglobin 8.7 L 7.5 L (11.4-16.0) gm/dL Sodium (137-145) mmol/L Chloride (98-107) mmol/L Carbon Dioxide (22-30) mmol/L BUN (7-17) mg/dL Glucose (74-99) mg/dL POC Glucose (mg/dL) (75-99) mg/dL Ionized Calcium Saúl (4.5-5.3) mg/dL Total Bilirubin (0.2-1.3) mg/dL Total Protein (6.3-8.2) g/dL Albumin (3.5-5.0) g/dL Arterial Blood Glucose 103 H 112 H (75-99) mg/dL Crossmatch See Detail 08/23/18 08/23/18 08/23/18 Range/Units 10:53 12:10 13:20 WBC (3.8-10.6) k/uL RBC (3.80-5.40) m/uL Hgb (11.4-16.0) gm/dL Hct (34.0-46.0) % RDW (11.5-15.5) % Plt Count (150-450) k/uL Neutrophils # (1.3-7.7) k/uL Lymphocytes # (1.0-4.8) k/uL PT (9.0-12.0) sec INR (<1.2) ABG pH 7.34 L (7.35-7.45) ABG pCO2 (35-45) mmHg ABG pO2 228 H (83-108) mmHg ABG HCO3 20 L (21-25) mmol/L ABG Total CO2 (19-24) mmol/L ABG O2 Saturation 100.0 H 98.4 H (94-97) % ABG Hematocrit 21 L 18 L* (34.0-46.0) % ABG Ionized Calcium 6.0 H* (4.5-5.3) mg/dL ABG Glucose 125 H 133 H (75-99) mg/dL ABG Lactic Acid 2.2 H* 4.2 H* (0.5-1.6) mmol/L Hemoglobin 6.8 L* 5.9 L* (11.4-16.0) gm/dL Sodium (137-145) mmol/L Chloride (98-107) mmol/L Carbon Dioxide (22-30) mmol/L BUN (7-17) mg/dL Glucose (74-99) mg/dL POC Glucose (mg/dL) 172 H (75-99) mg/dL Ionized Calcium Saúl (4.5-5.3) mg/dL Total Bilirubin (0.2-1.3) mg/dL Total Protein (6.3-8.2) g/dL Albumin (3.5-5.0) g/dL Arterial Blood Glucose 125 H 133 H (75-99) mg/dL Crossmatch 08/23/18 08/23/18 08/23/18 Range/Units 13:45 13:45 13:45 WBC 13.4 H (3.8-10.6) k/uL RBC 2.44 L (3.80-5.40) m/uL Hgb 7.2 L D (11.4-16.0) gm/dL Hct 21.5 L (34.0-46.0) % RDW 21.8 H (11.5-15.5) % Plt Count (150-450) k/uL Neutrophils # 11.6 H (1.3-7.7) k/uL Lymphocytes # (1.0-4.8) k/uL PT 14.2 H (9.0-12.0) sec INR 1.4 H (<1.2) ABG pH (7.35-7.45) ABG pCO2 (35-45) mmHg ABG pO2 (83-108) mmHg ABG HCO3 (21-25) mmol/L ABG Total CO2 (19-24) mmol/L ABG O2 Saturation (94-97) % ABG Hematocrit (34.0-46.0) % ABG Ionized Calcium (4.5-5.3) mg/dL ABG Glucose (75-99) mg/dL ABG Lactic Acid (0.5-1.6) mmol/L Hemoglobin (11.4-16.0) gm/dL Sodium 136 L (137-145) mmol/L Chloride (98-107) mmol/L Carbon Dioxide 20 L (22-30) mmol/L BUN 19 H (7-17) mg/dL Glucose 153 H (74-99) mg/dL POC Glucose (mg/dL) (75-99) mg/dL Ionized Calcium Saúl 5.7 H (4.5-5.3) mg/dL Total Bilirubin (0.2-1.3) mg/dL Total Protein 4.8 L (6.3-8.2) g/dL Albumin 2.8 L (3.5-5.0) g/dL Arterial Blood Glucose (75-99) mg/dL Crossmatch 08/23/18 08/23/18 08/23/18 Range/Units 14:01 14:22 15:11 WBC (3.8-10.6) k/uL RBC (3.80-5.40) m/uL Hgb (11.4-16.0) gm/dL Hct (34.0-46.0) % RDW (11.5-15.5) % Plt Count (150-450) k/uL Neutrophils # (1.3-7.7) k/uL Lymphocytes # (1.0-4.8) k/uL PT (9.0-12.0) sec INR (<1.2) ABG pH 7.22 L (7.35-7.45) ABG pCO2 52 H (35-45) mmHg ABG pO2 167 H (83-108) mmHg ABG HCO3 (21-25) mmol/L ABG Total CO2 (19-24) mmol/L ABG O2 Saturation 99.2 H (94-97) % ABG Hematocrit (34.0-46.0) % ABG Ionized Calcium (4.5-5.3) mg/dL ABG Glucose (75-99) mg/dL ABG Lactic Acid (0.5-1.6) mmol/L Hemoglobin (11.4-16.0) gm/dL Sodium (137-145) mmol/L Chloride (98-107) mmol/L Carbon Dioxide (22-30) mmol/L BUN (7-17) mg/dL Glucose (74-99) mg/dL POC Glucose (mg/dL) 183 H 162 H (75-99) mg/dL Ionized Calcium Sa[place]l (4.5-5.3) mg/dL Total Bilirubin (0.2-1.3) mg/dL Total Protein (6.3-8.2) g/dL Albumin (3.5-5.0) g/dL Arterial Blood Glucose (75-99) mg/dL Crossmatch 08/23/18 08/23/18 08/23/18 Range/Units 16:08 16:32 17:14 WBC (3.8-10.6) k/uL RBC (3.80-5.40) m/uL Hgb (11.4-16.0) gm/dL Hct (34.0-46.0) % RDW (11.5-15.5) % Plt Count (150-450) k/uL Neutrophils # (1.3-7.7) k/uL Lymphocytes # (1.0-4.8) k/uL PT (9.0-12.0) sec INR (<1.2) ABG pH 7.30 L (7.35-7.45) ABG pCO2 (35-45) mmHg ABG pO2 158 H (83-108) mmHg ABG HCO3 (21-25) mmol/L ABG Total CO2 (19-24) mmol/L ABG O2 Saturation 99.3 H (94-97) % ABG Hematocrit (34.0-46.0) % ABG Ionized Calcium (4.5-5.3) mg/dL ABG Glucose (75-99) mg/dL ABG Lactic Acid (0.5-1.6) mmol/L Hemoglobin (11.4-16.0) gm/dL Sodium (137-145) mmol/L Chloride (98-107) mmol/L Carbon Dioxide (22-30) mmol/L BUN (7-17) mg/dL Glucose (74-99) mg/dL POC Glucose (mg/dL) 157 H 176 H (75-99) mg/dL Ionized Calcium Sa[place]l (4.5-5.3) mg/dL Total Bilirubin (0.2-1.3) mg/dL Total Protein (6.3-8.2) g/dL Albumin (3.5-5.0) g/dL Arterial Blood Glucose (75-99) mg/dL Crossmatch 08/23/18 08/23/18 08/23/18 Range/Units 17:49 18:11 19:24 WBC 13.3 H (3.8-10.6) k/uL RBC 3.21 L (3.80-5.40) m/uL Hgb 8.9 L D (11.4-16.0) gm/dL Hct 27.9 L (34.0-46.0) % RDW 21.3 H (11.5-15.5) % Plt Count 116 L (150-450) k/uL Neutrophils # 12.2 H (1.3-7.7) k/uL Lymphocytes # 0.5 L (1.0-4.8) k/uL PT (9.0-12.0) sec INR (<1.2) ABG pH (7.35-7.45) ABG pCO2 (35-45) mmHg ABG pO2 (83-108) mmHg ABG HCO3 (21-25) mmol/L ABG Total CO2 (19-24) mmol/L ABG O2 Saturation (94-97) % ABG Hematocrit (34.0-46.0) % ABG Ionized Calcium (4.5-5.3) mg/dL ABG Glucose (75-99) mg/dL ABG Lactic Acid (0.5-1.6) mmol/L Hemoglobin (11.4-16.0) gm/dL Sodium (137-145) mmol/L Chloride (98-107) mmol/L Carbon Dioxide (22-30) mmol/L BUN (7-17) mg/dL Glucose (74-99) mg/dL POC Glucose (mg/dL) 159 H 156 H (75-99) mg/dL Ionized Calcium Sa[place]l (4.5-5.3) mg/dL Total Bilirubin (0.2-1.3) mg/dL Total Protein (6.3-8.2) g/dL Albumin (3.5-5.0) g/dL Arterial Blood Glucose (75-99) mg/dL Crossmatch 08/23/18 08/23/18 08/23/18 Range/Units 20:24 20:30 20:30 WBC 12.6 H (3.8-10.6) k/uL RBC 3.07 L (3.80-5.40) m/uL Hgb 9.0 L (11.4-16.0) gm/dL Hct 26.4 L (34.0-46.0) % RDW 21.4 H (11.5-15.5) % Plt Count 119 L (150-450) k/uL Neutrophils # (1.3-7.7) k/uL Lymphocytes # (1.0-4.8) k/uL PT 12.3 H (9.0-12.0) sec INR 1.2 H (<1.2) ABG pH (7.35-7.45) ABG pCO2 (35-45) mmHg ABG pO2 (83-108) mmHg ABG HCO3 (21-25) mmol/L ABG Total CO2 (19-24) mmol/L ABG O2 Saturation (94-97) % ABG Hematocrit (34.0-46.0) % ABG Ionized Calcium (4.5-5.3) mg/dL ABG Glucose (75-99) mg/dL ABG Lactic Acid (0.5-1.6) mmol/L Hemoglobin (11.4-16.0) gm/dL Sodium (137-145) mmol/L Chloride (98-107) mmol/L Carbon Dioxide (22-30) mmol/L BUN (7-17) mg/dL Glucose (74-99) mg/dL POC Glucose (mg/dL) 156 H (75-99) mg/dL Ionized Calcium Sa[place]l (4.5-5.3) mg/dL Total Bilirubin (0.2-1.3) mg/dL Total Protein (6.3-8.2) g/dL Albumin (3.5-5.0) g/dL Arterial Blood Glucose (75-99) mg/dL Crossmatch 08/23/18 08/23/18 08/23/18 Range/Units 20:30 21:11 22:16 WBC (3.8-10.6) k/uL RBC (3.80-5.40) m/uL Hgb (11.4-16.0) gm/dL Hct (34.0-46.0) % RDW (11.5-15.5) % Plt Count (150-450) k/uL Neutrophils # (1.3-7.7) k/uL Lymphocytes # (1.0-4.8) k/uL PT (9.0-12.0) sec INR (<1.2) ABG pH (7.35-7.45) ABG pCO2 (35-45) mmHg ABG pO2 (83-108) mmHg ABG HCO3 (21-25) mmol/L ABG Total CO2 (19-24) mmol/L ABG O2 Saturation (94-97) % ABG Hematocrit (34.0-46.0) % ABG Ionized Calcium (4.5-5.3) mg/dL ABG Glucose (75-99) mg/dL ABG Lactic Acid (0.5-1.6) mmol/L Hemoglobin (11.4-16.0) gm/dL Sodium (137-145) mmol/L Chloride (98-107) mmol/L Carbon Dioxide (22-30) mmol/L BUN 19 H (7-17) mg/dL Glucose 139 H (74-99) mg/dL POC Glucose (mg/dL) 142 H 141 H (75-99) mg/dL Ionized Calcium [place] 5.6 H (4.5-5.3) mg/dL Total Bilirubin 2.0 H (0.2-1.3) mg/dL Total Protein 5.5 L (6.3-8.2) g/dL Albumin (3.5-5.0) g/dL Arterial Blood Glucose (75-99) mg/dL Crossmatch 08/23/18 08/24/18 08/24/18 Range/Units 23:09 00:03 00:56 WBC (3.8-10.6) k/uL RBC (3.80-5.40) m/uL Hgb (11.4-16.0) gm/dL Hct (34.0-46.0) % RDW (11.5-15.5) % Plt Count (150-450) k/uL Neutrophils # (1.3-7.7) k/uL Lymphocytes # (1.0-4.8) k/uL PT (9.0-12.0) sec INR (<1.2) ABG pH (7.35-7.45) ABG pCO2 (35-45) mmHg ABG pO2 (83-108) mmHg ABG HCO3 (21-25) mmol/L ABG Total CO2 (19-24) mmol/L ABG O2 Saturation (94-97) % ABG Hematocrit (34.0-46.0) % ABG Ionized Calcium (4.5-5.3) mg/dL ABG Glucose (75-99) mg/dL ABG Lactic Acid (0.5-1.6) mmol/L Hemoglobin (11.4-16.0) gm/dL Sodium (137-145) mmol/L Chloride (98-107) mmol/L Carbon Dioxide (22-30) mmol/L BUN (7-17) mg/dL Glucose (74-99) mg/dL POC Glucose (mg/dL) 138 H 123 H 111 H (75-99) mg/dL Ionized Calcium [place] (4.5-5.3) mg/dL Total Bilirubin (0.2-1.3) mg/dL Total Protein (6.3-8.2) g/dL Albumin (3.5-5.0) g/dL Arterial Blood Glucose (75-99) mg/dL Crossmatch 08/24/18 08/24/18 08/24/18 Range/Units 02:04 03:05 03:05 WBC (3.8-10.6) k/uL RBC 2.95 L (3.80-5.40) m/uL Hgb 8.5 L (11.4-16.0) gm/dL Hct 25.5 L (34.0-46.0) % RDW 21.5 H (11.5-15.5) % Plt Count 113 L (150-450) k/uL Neutrophils # 8.8 H (1.3-7.7) k/uL Lymphocytes # 0.7 L (1.0-4.8) k/uL PT (9.0-12.0) sec INR (<1.2) ABG pH (7.35-7.45) ABG pCO2 (35-45) mmHg ABG pO2 (83-108) mmHg ABG HCO3 (21-25) mmol/L ABG Total CO2 (19-24) mmol/L ABG O2 Saturation (94-97) % ABG Hematocrit (34.0-46.0) % ABG Ionized Calcium (4.5-5.3) mg/dL ABG Glucose (75-99) mg/dL ABG Lactic Acid (0.5-1.6) mmol/L Hemoglobin (11.4-16.0) gm/dL Sodium (137-145) mmol/L Chloride 108 H (98-107) mmol/L Carbon Dioxide 20 L (22-30) mmol/L BUN (7-17) mg/dL Glucose 110 H (74-99) mg/dL POC Glucose (mg/dL) 124 H (75-99) mg/dL Ionized Calcium [place] 5.7 H (4.5-5.3) mg/dL Total Bilirubin 1.8 H (0.2-1.3) mg/dL Total Protein 5.3 L (6.3-8.2) g/dL Albumin 3.4 L (3.5-5.0) g/dL Arterial Blood Glucose (75-99) mg/dL Crossmatch 08/24/18 08/24/18 08/24/18 Range/Units 03:06 03:52 05:21 WBC (3.8-10.6) k/uL RBC (3.80-5.40) m/uL Hgb (11.4-16.0) gm/dL Hct (34.0-46.0) % RDW (11.5-15.5) % Plt Count (150-450) k/uL Neutrophils # (1.3-7.7) k/uL Lymphocytes # (1.0-4.8) k/uL PT (9.0-12.0) sec INR (<1.2) ABG pH (7.35-7.45) ABG pCO2 (35-45) mmHg ABG pO2 (83-108) mmHg ABG HCO3 (21-25) mmol/L ABG Total CO2 (19-24) mmol/L ABG O2 Saturation (94-97) % ABG Hematocrit (34.0-46.0) % ABG Ionized Calcium (4.5-5.3) mg/dL ABG Glucose (75-99) mg/dL ABG Lactic Acid (0.5-1.6) mmol/L Hemoglobin (11.4-16.0) gm/dL Sodium (137-145) mmol/L Chloride (98-107) mmol/L Carbon Dioxide (22-30) mmol/L BUN (7-17) mg/dL Glucose (74-99) mg/dL POC Glucose (mg/dL) 138 H 130 H 111 H (75-99) mg/dL Ionized Calcium [place] (4.5-5.3) mg/dL Total Bilirubin (0.2-1.3) mg/dL Total Protein (6.3-8.2) g/dL Albumin (3.5-5.0) g/dL Arterial Blood Glucose (75-99) mg/dL Crossmatch 08/24/18 08/24/18 08/24/18 Range/Units 06:04 06:54 07:56 WBC (3.8-10.6) k/uL RBC (3.80-5.40) m/uL Hgb (11.4-16.0) gm/dL Hct (34.0-46.0) % RDW (11.5-15.5) % Plt Count (150-450) k/uL Neutrophils # (1.3-7.7) k/uL Lymphocytes # (1.0-4.8) k/uL PT (9.0-12.0) sec INR (<1.2) ABG pH (7.35-7.45) ABG pCO2 (35-45) mmHg ABG pO2 (83-108) mmHg ABG HCO3 (21-25) mmol/L ABG Total CO2 (19-24) mmol/L ABG O2 Saturation (94-97) % ABG Hematocrit (34.0-46.0) % ABG Ionized Calcium (4.5-5.3) mg/dL ABG Glucose (75-99) mg/dL ABG Lactic Acid (0.5-1.6) mmol/L Hemoglobin (11.4-16.0) gm/dL Sodium (137-145) mmol/L Chloride (98-107) mmol/L Carbon Dioxide (22-30) mmol/L BUN (7-17) mg/dL Glucose (74-99) mg/dL POC Glucose (mg/dL) 122 H 110 H 118 H (75-99) mg/dL Ionized Calcium [place] (4.5-5.3) mg/dL Total Bilirubin (0.2-1.3) mg/dL Total Protein (6.3-8.2) g/dL Albumin (3.5-5.0) g/dL Arterial Blood Glucose (75-99) mg/dL Crossmatch 08/24/18 08/24/18 08/24/18 Range/Units 07:57 09:14 09:31 WBC (3.8-10.6) k/uL RBC (3.80-5.40) m/uL Hgb (11.4-16.0) gm/dL Hct (34.0-46.0) % RDW (11.5-15.5) % Plt Count (150-450) k/uL Neutrophils # (1.3-7.7) k/uL Lymphocytes # (1.0-4.8) k/uL PT (9.0-12.0) sec INR (<1.2) ABG pH (7.35-7.45) ABG pCO2 31 L 33 L (35-45) mmHg ABG pO2 124 H (83-108) mmHg ABG HCO3 (21-25) mmol/L ABG Total CO2 (19-24) mmol/L ABG O2 Saturation 99.4 H 98.8 H (94-97) % ABG Hematocrit (34.0-46.0) % ABG Ionized Calcium (4.5-5.3) mg/dL ABG Glucose (75-99) mg/dL ABG Lactic Acid (0.5-1.6) mmol/L Hemoglobin (11.4-16.0) gm/dL Sodium (137-145) mmol/L Chloride (98-107) mmol/L Carbon Dioxide (22-30) mmol/L BUN (7-17) mg/dL Glucose (74-99) mg/dL POC Glucose (mg/dL) 129 H (75-99) mg/dL Ionized Calcium Saúl (4.5-5.3) mg/dL Total Bilirubin (0.2-1.3) mg/dL Total Protein (6.3-8.2) g/dL Albumin (3.5-5.0) g/dL Arterial Blood Glucose (75-99) mg/dL Crossmatch 08/24/18 Range/Units 10:28 WBC (3.8-10.6) k/uL RBC (3.80-5.40) m/uL Hgb (11.4-16.0) gm/dL Hct (34.0-46.0) % RDW (11.5-15.5) % Plt Count (150-450) k/uL Neutrophils # (1.3-7.7) k/uL Lymphocytes # (1.0-4.8) k/uL PT (9.0-12.0) sec INR (<1.2) ABG pH (7.35-7.45) ABG pCO2 (35-45) mmHg ABG pO2 (83-108) mmHg ABG HCO3 (21-25) mmol/L ABG Total CO2 (19-24) mmol/L ABG O2 Saturation (94-97) % ABG Hematocrit (34.0-46.0) % ABG Ionized Calcium (4.5-5.3) mg/dL ABG Glucose (75-99) mg/dL ABG Lactic Acid (0.5-1.6) mmol/L Hemoglobin (11.4-16.0) gm/dL Sodium (137-145) mmol/L Chloride (98-107) mmol/L Carbon Dioxide (22-30) mmol/L BUN (7-17) mg/dL Glucose (74-99) mg/dL POC Glucose (mg/dL) 125 H (75-99) mg/dL Ionized Calcium Saúl (4.5-5.3) mg/dL Total Bilirubin (0.2-1.3) mg/dL Total Protein (6.3-8.2) g/dL Albumin (3.5-5.0) g/dL Arterial Blood Glucose (75-99) mg/dL Crossmatch Assessment and Plan Assessment: 1 symptomatic multivessel coronary artery disease, status post myocardial revascularization, postoperative day #1, remains on mechanical ventilation during my evaluation. On Precedex drip. 2 acute blood loss anemia, and expected outcome of bypass surgery 3 Intraoperative V. fib requiring defibrillation 4 severe obstructive and restrictive lung disease 5 acute non-ST elevation myocardial infarction 6 benign essential hypertension 7 chronic atrial fibrillation 8 morbid obesity 9 carotid artery disease 10 chronic venous insufficiency 11 history of smoking, quit in March of 2018. 12 chronic anemia 13 peripheral vessel occlusive disease, involving both lower extremities. Plan:we will continue Precedex, will place the patient on pressure support of 8 and CPAP, will recheck ABG, and we will likely extubate the patient in the next hour. In the meantime patient will maximize medical therapy including aspirin statins and Plavix beta blockers, wean and discontinue dopamine, discontinue IV amiodarone, was extubated will continue incentive spirometry and early ambulation, bronchodilators, continue to monitor daily labs and x-rays, monitor hemoglobin and if needed consider transfusion presently she doesn't need it. C ontinue insulin management, and pain control as necessary. We'll continue to follow. Critical care time is 35 minutes. Time with Patient: Greater than 30
[2018-08-24 12:08] LABS: Glucose,Whole Blood 117 mg/dL (75-99)
[2018-08-24] MEDS: CLEVIDIPINE BUTYRATE 25 MG in EMPTY BAG 1 BAG IV SCH (12:23)
--- NOTE | 2018-08-24 12:43 | PN ---
PROGRESS NOTE This 67-year-old lady with left main stenosis who underwent bypass surgery yesterday today is postop day #1. She was an off pump surgery and had an episode of V tach and had to be defibrillated in the OR with IV amiodarone, which has since been stopped. She also had short self-limited run of atrial fibrillation and had been bradycardic. Currently on IV dopamine, blood pressures are marginal. She is alert, awake, and seems to be doing fairly well and does not have any stroke symptoms. On exam, heart rate is 75 beats per minute. Blood pressure is 85/49, respiratory rate is 20. Chest exam reveals diminished air entry at the bases. Heart exam reveals first and second heart sounds. No gallop. Examination of the extremities did not reveal any edema. Peripheral pulses are palpable. Labs show hemoglobin of 8.5. ASSESSMENT: 1. Coronary artery disease, status post coronary artery bypass grafting. 2. Ventricular tachycardia. 3. Paroxysmal atrial fibrillation. PLAN: Continue current supportive care including the dopamine. Aspirin, Lipitor, Plavix have been resumed. Please hold the beta-blockers as she has had episodes of bradycardia. MMODL / IJN: [id number] /
[2018-08-24 13:16] LABS: Glucose,Whole Blood 113 mg/dL (75-99)
[2018-08-24] MEDS: DOPamine DRIP 800 MG in DEXTROSE/WATER 1 250ML.BAG IV SCH (15:03)
[2018-08-24 15:42] LABS: Glucose,Whole Blood 102 mg/dL (75-99)
[2018-08-24 18:16] LABS: Glucose,Whole Blood 134 mg/dL (75-99)
[2018-08-24] MEDS: KETOROLAC 30 MG/ML 1 ML VIAL IVP SCH (18:33)
[2018-08-24 19:40] LABS: Glucose,Whole Blood 171 mg/dL (75-99)
[2018-08-24 20:22] LABS: Glucose,Whole Blood 100 mg/dL (75-99)
[2018-08-24] MEDS: METOPROLOL TARTRATE 12.5 MG TAB PO SCH (20:53)
[2018-08-24] MEDS: SENNOSIDES-DOCUSATE SODIUM 1 EACH TAB PO SCH (20:53)
[2018-08-24 21:07] LABS: Glucose,Whole Blood 111 mg/dL (75-99)
[2018-08-24 22:12] LABS: Glucose,Whole Blood 125 mg/dL (75-99)
[2018-08-24 23:06] LABS: Glucose,Whole Blood 126 mg/dL (75-99)
[2018-08-25 00:11] LABS: Glucose,Whole Blood 126 mg/dL (75-99)
--- NOTE | 2018-08-25 00:58 | PN ---
PROGRESS NOTE DATE OF SERVICE: August 24, 2018. PRESENTING COMPLAINT: Coronary bypass. INTERVAL HISTORY: Patient is status post coronary bypass. The patient was extubated this morning, had a short run of ventricular tachycardia post procedure. Current drips include insulin, is taken off. Also on 2 mics of dopamine. Did earlier get some Lopressor and did drop her blood pressure. Lopressor has been held off. The patient's chest tubes include right pleural, right mediastinal and left pleural. The patient is awake. REVIEW OF SYSTEMS: Attempted for constitutional, cardiovascular, GI, pulmonary and relevant findings as above. CURRENT MEDICATIONS: Reviewed that include DuoNeb, IV amiodarone, Lipitor, aspirin, insulin, Lopressor has been held, Protonix. PHYSICAL EXAMINATION: VITAL SIGNS: Temperature 98.4, pulse 87, respiration 20, and blood pressure 109/47, pulse ox 97% on 3 L. GENERAL APPEARANCE: Propped up in bed, awake. EYES: Pupils equal. Conjunctivae pale. NECK: JVD not raised. Mass not palpable. RESPIRATORY: Effort increased. LUNGS: Diminished breath sounds. CARDIOVASCULAR: Heart sounds irregular. Minimal edema. ABDOMEN: Soft, nontender. Liver and spleen not palpable. PSYCHIATRY: Awake, answering questions. CHEST: The patient has got 2 right-sided chest tubes, 1 on the left side. INVESTIGATIONS: Accu-Cheks are noted. Blood gases are noted. White count 10, hemoglobin 8.5, platelets 113, potassium 4.3. BUN and creatinine is normal. ASSESSMENT: 1. Status post coronary bypass. 2. Coronary artery disease following cardiac cath. 3. Acute on chronic congestive heart failure exacerbation from diastolic and systolic dysfunction, EF 35-40 percent from underlying coronary artery disease stabilized. 4. Hypertensive heart disease. 5. Persistent atrial flutter fibrillation, chronic. 6. Essential hypertension. 7. Primary osteoarthritis. 8. Complete occlusion of the right internal carotid artery 90% left internal carotid artery. 9. Acute non-ST elevation myocardial infarction. 10.Severe chronic obstructive pulmonary disease. 11.Peripheral artery disease. 12.Chronic venous insufficiency lower extremity. 13.Dilutional thrombocytopenia. 14.Acute postoperative blood-loss anemia as expected from surgery. PLAN: Continue current medication and treatment plan. Patient is on IV insulin, dopamine drip. Keep a close eye on the blood pressure. Patient remains in the ICU. We will follow. MMODL / IJN: [id number] /
[2018-08-25 01:08] LABS: Glucose,Whole Blood 121 mg/dL (75-99)
[2018-08-25 01:20] LABS: ABG PCO2 43 mmHg (35-45); ABG PH 7.35 (7.35-7.45)
[2018-08-25 01:21] LABS: ABG HCO3 24 mmol/L (21-25); ABG PO2 27 mmHg (83-108); ABG TCO2 25 mmol/L (19-24)
[2018-08-25 01:22] LABS: ABG Oxygen Saturation 45.5 % (94-97)
[2018-08-25] MEDS: DOPamine DRIP 800 MG in DEXTROSE/WATER 1 250ML.BAG IV SCH (01:34)
[2018-08-25] MEDS: KETOROLAC 30 MG/ML 1 ML VIAL IVP SCH ×5 (01:34→23:50)
[2018-08-25 02:38] LABS: ABG Base Excess -3.6 mmol/L; ABG HCO3 22 mmol/L (21-25); ABG Oxygen Saturation 97.2 % (94-97); ABG PCO2 38 mmHg (35-45); ABG PH 7.37 (7.35-7.45); ABG PO2 88 mmHg (83-108); ABG TCO2 23 mmol/L (19-24)
[2018-08-25] MEDS: ceFAZolin 3 GM in SODIUM CHLORIDE 0.9% 100 ML IVPB SCH ×3 (02:44→16:24)
--- NOTE | 2018-08-25 03:10 | XR ---
EXAM: XR Chest, 1 View CLINICAL HISTORY: Shortness of breath TECHNIQUE: Frontal view of the chest. COMPARISON: No relevant prior studies available. FINDINGS: Lungs: Diffuse airspace opacities which may represent pulmonary vascular congestion. Pleural space: Probable left-sided pleural effusion. No pneumothorax. Heart: Unremarkable. No cardiomegaly. Mediastinum: Mediastinal drains. Marked enlargement of the cardia mediastinal silhouette. Bones/joints: Median sternotomy wires are noted. Tubes, lines and devices: Right IJ PA catheter with tip in the main outflow tract. Bilateral chest tubes. IMPRESSION: 1. Support devices appear to be in appropriate position. 2. Probable mild pulmonary vascular congestion and small left sided pleural effusion.
[2018-08-25 03:33] LABS: Glucose,Whole Blood 108 mg/dL (75-99)
[2018-08-25 04:30] LABS: Anisocytosis Moderate; Basophils % (A) 0 %; Eosinophils # (A) 0.1 k/uL (0-0.7); Eosinophils % (A) 1 %; HCT 24.3 % (34.0-46.0); HGB 7.8 gm/dL (11.4-16.0); Hypochromasia Slight; Lymphocytes # (A) 0.8 k/uL (1.0-4.8); Lymphocytes % (A) 7 %; MCH 28.2 pg (25.0-35.0); MCHC 32.1 g/dL (31.0-37.0); MCV 87.9 fL (80.0-100.0); Mean Platelet Volume 9.6; Microcytosis Slight; Monocytes # (A) 0.5 k/uL (0-1.0); Monocytes % (A) 5 %; Neutrophils % (A) 86 %; Poikilocytosis Slight; RBC 2.76 m/uL (3.80-5.40); RDW 21.2 % (11.5-15.5); WBC 10.5 k/uL (3.8-10.6)
[2018-08-25 05:07] LABS: Ionized Calcium 5.2 mg/dL (4.5-5.3)
[2018-08-25 05:16] LABS: ALT 18 U/L (9-52); AST 26 U/L (14-36); Albumin 2.3 g/dL (3.5-5.0); Alkaline Phosphatase 33 U/L (38-126); Anion Gap 5 mmol/L; Blood Urea Nitrogen 15 mg/dL (7-17); Calcium 7.9 mg/dL (8.4-10.2); Carbon Dioxide 15 mmol/L (22-30); Chloride 119 mmol/L (98-107); Glucose 83 mg/dL (74-99); Magnesium 1.6 mg/dL (1.6-2.3); Sodium 139 mmol/L (137-145); Total Protein 4.1 g/dL (6.3-8.2)
[2018-08-25 05:24] LABS: Glucose,Whole Blood 113 mg/dL (75-99)
[2018-08-25 05:26] LABS: Potassium 3.9 mmol/L (3.5-5.1)
[2018-08-25 06:14] LABS: Polychromasia Present
[2018-08-25 06:15] LABS: Large Platelets Present
[2018-08-25] MEDS ORDERED: Magnesium Replacement Protocol 1 EACH MISC MISCELLANE PRN (06:15)
[2018-08-25] MEDS ORDERED: Potassium Replacement Protocol 1 EACH MISC MISCELLANE PRN (06:15)
[2018-08-25 06:16] LABS: Platelet Count 87 k/uL (150-450)
[2018-08-25] MEDS ORDERED: FUROSEMIDE 10 MG/ML 2 ML VIAL IV ONE (06:25)
[2018-08-25] MEDS: HEPARIN SODIUM,PORCINE 5,000 UNIT/ML 1 ML VIAL SQ SCH ×3 (06:32→20:59)
[2018-08-25] MEDS: MAGNESIUM SULFATE-D5W PMX 1 GM in DEXTROSE/WATER 1 100ML.BAG IVPB SCH ×2 (06:32→08:30)
[2018-08-25] MEDS: POTASSIUM CHLORIDE 10 MEQ in WATER FOR INJECTION 1 100ML.BAG IVPB SCH ×2 (06:39→08:29)
[2018-08-25 07:22] LABS: Glucose,Whole Blood 132 mg/dL (75-99)
[2018-08-25] MEDS: IPRATROPIUM-ALBUTEROL 3 ML NEB INHALATION SCH ×4 (07:37→19:25)
[2018-08-25 08:11] LABS: Glucose,Whole Blood 124 mg/dL (75-99)
[2018-08-25] MEDS: INSULIN ASPART (NovoLOG) 100 UNIT/ML VIAL SQ SCH ×4 (08:30→20:49)
[2018-08-25] MEDS: LACTATED RINGERS 1,000 ML IV SCH (08:36)
[2018-08-25] MEDS: ASPIRIN 81 MG PO SCH (08:37)
[2018-08-25] MEDS: METOPROLOL TARTRATE 12.5 MG TAB PO SCH ×2 (08:37→20:58)
[2018-08-25] MEDS: PANTOPRAZOLE 40 MG TABLET PO SCH (08:37)
[2018-08-25] MEDS: CINACALCET 30 MG TAB PO SCH ×2 (08:37→20:58)
[2018-08-25] MEDS: ATORVASTATIN 40 MG TAB PO SCH (08:37)
[2018-08-25] MEDS: CLOPIDOGREL 75 MG TAB PO SCH (08:37)
[2018-08-25 08:45] LABS: Glucose,Whole Blood 137 mg/dL (75-99)
[2018-08-25 10:19] LABS: Glucose,Whole Blood 140 mg/dL (75-99)
--- NOTE | 2018-08-25 10:37 | P.PN ---
Subjective Progress Note Date: 08/25/18 Principal diagnosis: Non-ST elevation myocardial infarction, symptomatic multivessel coronary artery disease with left main disease, acute on chronic diastolic heart failure, chron ic atrial fibrillation, history of coronary artery disease with previous stent placement 2003, hypertension, hyperlipidemia, morbid obesity, peripheral vascular disease, bilateral carotid artery stenosis with totally occluded right ICA and left ICA with 80% stenosis, previous tobacco dependence, severe restrictive lung disease with preoperative FEV1 47% of predicted, chronic normocytic anemia, and osteoarthritis. POD #2 off-pump coronary artery bypass grafting 3 with sequential left internal mammary artery to the left anterior descending artery and diagonal, reverse saphenous vein graft to the obtuse marginal artery, ligation of the left atrial appendage with 35 mm AtriClip. Endovascular vein harvest of the left lower extremity from the knee to the groin level. Intraoperative transesophageal echocardiogram by anesthesia. Intraoperative and postoperative acute blood loss, unexpected, surgery given patient's preoperative anemia. Postoperative thrombocytopenia, expected outcome of surgery. Intraoperative V. fib requiring one shock with conversion to sinus rhythm, unexpected but potential outcome. The patient is currently sitting up in the recliner in no acute distress in the intensive care unit. She was successfully extubated yesterday at 9:40 AM. States pain is well controlled on current medication regimen and denies significant shortness of breath. Dopamine was turned off this morning. She remains in normal sinus rhythm and hemodynamically stable on no inotropes or pressors. She is attempting her incentive spirometry but with poor effort. She received 20 mg IV push Lasix this morning with good diuresis afterwards. She has no new complaints. Objective - Vital Signs Vital signs: Vital Signs Temp 97.5 F L 08/24/18 16:00 Pulse 76 08/25/18 09:00 Resp 20 08/25/18 09:00 BP 100/53 08/25/18 09:00 Pulse Ox 98 08/25/18 09:00 Intake & Output 08/24/18 08/25/18 08/25/18 18:59 06:59 18:59 Intake Total 2022.459 611.867 537 Output Total 1043 650 320 Balance 979.459 -38.133 217 Weight 129 kg Intake: IV 1630.5 579 417 Albumin Human 5% 250 ml 750 In Empty Bag 1 bag @ 250 mls/hr IVPB Q1HR PRN Rx#: [id number] CO/CI 120 140 30 Lactated Ringers 1,000 ml 460 340 60 @ 20 mls/hr IV .Q24H [facility] Rx#:[id number] Magnesium Sulfate-D5w Pmx 200 1 gm In Dextrose/Water 1 100ml.bag @ 100 mls/hr IVPB Q1H [facility] Rx#: [id number] Nitroglycerin-D5w Pmx 50 1.5 mg In Dextrose/Water 1 250ml.bag @ 5 MCG/MIN 1.5 mls/hr IV .Q24H [facility] Rx#: [id number] Potassium Chloride 10 meq 100 In Water For Injection 1 100ml.bag @ 100 mls/hr IVPB Q1H [facility] Rx#: [id number] ceFAZolin 3 gm In Sodium 200 Chloride 0.9% 100 ml @ 100 mls/hr IVPB Q8HR [facility] Rx#:[id number] pressure bag 99 99 27 Intake, IV Titration 391.959 32.867 0 Amount Amiodarone 360 mg In 200 Dextrose 5% in Water 200 ml @ 1 MG/MIN 33.333 mls/ hr IV .Q6H1M [facility] Rx#: [id number] DOPamine DRIP 800 mg In 110.726 19.45 Dextrose/Water 1 250ml. bag @ 2 MCG/KG/MIN 4.631 mls/hr IV .Q24H [facility] Rx#: [id number] Dexmedetomidine/0.9% NaCl 18.477 (Pmx) 400 mcg In Empty Bag 1 bag @ Titrate IV . Q0M [facility] Rx#:[id number] Insulin Regular 100 unit 30.933 13.417 0 In Sodium Chloride 0.9% 100 ml @ Titrate IV .Q0M [facility] Rx#:[id number] Nitroglycerin-D5w Pmx 50 26.05 mg In Dextrose/Water 1 250ml.bag @ 5 MCG/MIN 1.5 mls/hr IV .Q24H [facility] Rx#: [id number] Propofol 1,000 mg In 5.773 Empty Bag 1 bag @ Titrate IV .Q0M [facility] Rx#: [id number] Oral 120 Output: Chest Tube Drainage 528 280 70 Left Pleural 138 80 50 Right Pleural/Mediastinal 390 200 20 Drainage 0 0 Left [place] 0 0 Urine 515 370 250 Other: Voiding Method Indwelling Catheter Indwelling Catheter Indwelling Catheter ABP, PAP, CO, CI - Last Documented Arterial Blood Pressure 124/51 Pulmonary Artery Pressure 35/26 Cardiac Output 4.1 Cardiac Index 2.3 - Constitutional General appearance: Present: cooperative, morbidly obese, no acute distress - Respiratory Details: Lungs sounds diminished bilaterally. Respirations even, nonlabored. Currently on 6 L nasal cannula with oxygen saturation 92%. Only able to achieve 500 mL on her incentive spirometry. Strong cough. Mediastinal/right pleural chest tube to continuous wall suction, 190 mL serosanguineous to injure overnight, 700 mL the last 24 hours. Left pleural chest tube to continuous wall suction, 70 mL serosanguineous drainage overnight, 200 mL the last 24 hours. Trace air leak present in the mediastinal/right chest tube. - Cardiovascular Details: S1, S2 present. Regular rate and rhythm, sinus rhythm on telemetry. Sternum stable. Palpable peripheral pulses bilaterally. Trace generalized edema present. Right internal jugular [place]/Cordis, left radial arterial line present. Last CO/CI 4.9/2.2 on no inotropes or pressors. Heart hugger in place with patient demonstrating appropriate use. Antiembolism stockings, SCDs present. - Gastrointestinal Gastrointestinal Comment(s): Abdomen soft, nontender, nondistended, obese. Hypoactive bowel sounds present 4 quadrants. Tolerating clear diet. Negative flatus. - Genitourinary Genitourinary Comment(s): Sotelo present draining clear, yellow urine. Output 30-50 mL/h overnight, 250 mL after Lasix. - Integumentary Integumentary Comment(s): Skin is warm and dry with evidence of good perfusion. Anterior chest incision well approximated and covered with dry intact dressing. Left lower extremity EVH site well approximated, JOAQUÍN drain present with minimal serosanguineous drainage. - Neurologic Neurologic: Present: CNII-XII intact - Musculoskeletal Musculoskeletal: Present: generalized weakness, strength equal bilaterally - Psychiatric Psychiatric: Present: A&O x's 3, appropriate affect, intact judgment & insight - Allied health notes Allied health notes reviewed: nursing - Labs CBC & Chem 7: 08/25/18 04:00 08/25/18 04:00 Labs: Abnormal Lab Results - Last 24 Hours (Table) 08/24/18 08/24/18 08/24/18 Range/Units 10:28 12:00 13:13 RBC (3.80-5.40) m/uL Hgb (11.4-16.0) gm/dL Hct (34.0-46.0) % RDW (11.5-15.5) % Plt Count (150-450) k/uL Neutrophils # (1.3-7.7) k/uL Lymphocytes # (1.0-4.8) k/uL ABG pO2 (83-108) mmHg ABG Total CO2 (19-24) mmol/L ABG O2 Saturation (94-97) % Chloride (98-107) mmol/L Carbon Dioxide (22-30) mmol/L POC Glucose (mg/dL) 125 H 117 H 113 H (75-99) mg/dL Calcium (8.4-10.2) mg/dL Alkaline Phosphatase (38-126) U/L Total Protein (6.3-8.2) g/dL Albumin (3.5-5.0) g/dL 08/24/18 08/24/18 08/24/18 Range/Units 15:26 17:45 19:14 RBC (3.80-5.40) m/uL Hgb (11.4-16.0) gm/dL Hct (34.0-46.0) % RDW (11.5-15.5) % Plt Count (150-450) k/uL Neutrophils # (1.3-7.7) k/uL Lymphocytes # (1.0-4.8) k/uL ABG pO2 (83-108) mmHg ABG Total CO2 (19-24) mmol/L ABG O2 Saturation (94-97) % Chloride (98-107) mmol/L Carbon Dioxide (22-30) mmol/L POC Glucose (mg/dL) 102 H 134 H 171 H (75-99) mg/dL Calcium (8.4-10.2) mg/dL Alkaline Phosphatase (38-126) U/L Total Protein (6.3-8.2) g/dL Albumin (3.5-5.0) g/dL 08/24/18 08/24/18 08/24/18 Range/Units 20:16 21:05 22:09 RBC (3.80-5.40) m/uL Hgb (11.4-16.0) gm/dL Hct (34.0-46.0) % RDW (11.5-15.5) % Plt Count (150-450) k/uL Neutrophils # (1.3-7.7) k/uL Lymphocytes # (1.0-4.8) k/uL ABG pO2 (83-108) mmHg ABG Total CO2 (19-24) mmol/L ABG O2 Saturation (94-97) % Chloride (98-107) mmol/L Carbon Dioxide (22-30) mmol/L POC Glucose (mg/dL) 100 H 111 H 125 H (75-99) mg/dL Calcium (8.4-10.2) mg/dL Alkaline Phosphatase (38-126) U/L Total Protein (6.3-8.2) g/dL Albumin (3.5-5.0) g/dL 08/24/18 08/24/18 08/25/18 Range/Units 23:03 23:58 00:55 RBC (3.80-5.40) m/uL Hgb (11.4-16.0) gm/dL Hct (34.0-46.0) % RDW (11.5-15.5) % Plt Count (150-450) k/uL Neutrophils # (1.3-7.7) k/uL Lymphocytes # (1.0-4.8) k/uL ABG pO2 (83-108) mmHg ABG Total CO2 (19-24) mmol/L ABG O2 Saturation (94-97) % Chloride (98-107) mmol/L Carbon Dioxide (22-30) mmol/L POC Glucose (mg/dL) 126 H 126 H 121 H (75-99) mg/dL Calcium (8.4-10.2) mg/dL Alkaline Phosphatase (38-126) U/L Total Protein (6.3-8.2) g/dL Albumin (3.5-5.0) g/dL 08/25/18 08/25/18 08/25/18 Range/Units 01:12 02:33 03:09 RBC (3.80-5.40) m/uL Hgb (11.4-16.0) gm/dL Hct (34.0-46.0) % RDW (11.5-15.5) % Plt Count (150-450) k/uL Neutrophils # (1.3-7.7) k/uL Lymphocytes # (1.0-4.8) k/uL ABG pO2 27 L* (83-108) mmHg ABG Total CO2 25 H (19-24) mmol/L ABG O2 Saturation 45.5 L 97.2 H (94-97) % Chloride (98-107) mmol/L Carbon Dioxide (22-30) mmol/L POC Glucose (mg/dL) 108 H (75-99) mg/dL Calcium (8.4-10.2) mg/dL Alkaline Phosphatase (38-126) U/L Total Protein (6.3-8.2) g/dL Albumin (3.5-5.0) g/dL 08/25/18 08/25/18 08/25/18 Range/Units 04:00 04:00 04:58 RBC 2.76 L (3.80-5.40) m/uL Hgb 7.8 L (11.4-16.0) gm/dL Hct 24.3 L (34.0-46.0) % RDW 21.2 H (11.5-15.5) % Plt Count 87 L (150-450) k/uL Neutrophils # 9.0 H (1.3-7.7) k/uL Lymphocytes # 0.8 L (1.0-4.8) k/uL ABG pO2 (83-108) mmHg ABG Total CO2 (19-24) mmol/L ABG O2 Saturation (94-97) % Chloride 119 H (98-107) mmol/L Carbon Dioxide 15 L (22-30) mmol/L POC Glucose (mg/dL) 113 H (75-99) mg/dL Calcium 7.9 L (8.4-10.2) mg/dL Alkaline Phosphatase 33 L (38-126) U/L Total Protein 4.1 L (6.3-8.2) g/dL Albumin 2.3 L (3.5-5.0) g/dL 08/25/18 08/25/18 08/25/18 Range/Units 07:09 08:09 08:43 RBC (3.80-5.40) m/uL Hgb (11.4-16.0) gm/dL Hct (34.0-46.0) % RDW (11.5-15.5) % Plt Count (150-450) k/uL Neutrophils # (1.3-7.7) k/uL Lymphocytes # (1.0-4.8) k/uL ABG pO2 (83-108) mmHg ABG Total CO2 (19-24) mmol/L ABG O2 Saturation (94-97) % Chloride (98-107) mmol/L Carbon Dioxide (22-30) mmol/L POC Glucose (mg/dL) 132 H 124 H 137 H (75-99) mg/dL Calcium (8.4-10.2) mg/dL Alkaline Phosphatase (38-126) U/L Total Protein (6.3-8.2) g/dL Albumin (3.5-5.0) g/dL 08/25/18 Range/Units 10:04 RBC (3.80-5.40) m/uL Hgb (11.4-16.0) gm/dL Hct (34.0-46.0) % RDW (11.5-15.5) % Plt Count (150-450) k/uL Neutrophils # (1.3-7.7) k/uL Lymphocytes # (1.0-4.8) k/uL ABG pO2 (83-108) mmHg ABG Total CO2 (19-24) mmol/L ABG O2 Saturation (94-97) % Chloride (98-107) mmol/L Carbon Dioxide (22-30) mmol/L POC Glucose (mg/dL) 140 H (75-99) mg/dL Calcium (8.4-10.2) mg/dL Alkaline Phosphatase (38-126) U/L Total Protein (6.3-8.2) g/dL Albumin (3.5-5.0) g/dL - Imaging and Cardiology Chest x-ray: report reviewed, image reviewed Assessment and Plan Assessment: 1. Non-ST elevation myocardial infarction 2. Symptomatic multivessel coronary artery disease with left main disease, status post off-pump coronary artery bypass surgery 3. Acute on chronic diastolic heart failure 4. Chronic atrial fibrillation on Eliquis at home for anticoagulation, status post left atrial appendage ligation 5. History of coronary artery disease with previous stent placement in 2003 6. Hypertension 7. Hyperlipidemia 8. Morbid obesity 9. Peripheral vascular disease 10. Bilateral carotid artery stenosis with totally occluded right ICA and a left ICA with 80% stenosis 11. Previous tobacco dependence 12. Severe restrictive lung disease with preoperative FEV1 47% of predicted 13. Chronic normocytic anemia, with intraoperative and postoperative acute blood loss anemia, status post packed red blood cell transfusion 14. Osteoarthritis 15. Postoperative thrombocytopenia, expected 16. Intraoperative V. fib requiring one shock with conversion to sinus rhythm, unexpected Plan: 1. Continue to maximize medical therapy with low-dose aspirin, statin, Plavix, beta louann therapy. Will increase beta louann therapy as tolerated. Will continue to hold Eliquis for now. 2. Wean O2 as tolerated. Encourage incentive spirometry use 10 times every hour while awake. 3. Increase activity, ambulate in hallway as tolerated. PT/OT/cardiac rehab following. 4. Bronchodilators per pulmonology. 5. Will monitor daily labs and x-rays. Electrolyte replacement per protocol. No further transfusions at this point. 6. Encourage continued smoking cessation. 7. Will keep [place]/Cordis, arterial line, chest tubes. 8. Will keep Sotelo for another 24 hours for strict accurate intake and output. Dopamine discontinued. 9. GI/Protonix, DVT prophylaxis. 10. Insulin management per primary care service. 11. Pain control with current medication regimen. 12. More recommendations to follow based on patient's clinical course. Time with Patient: Greater than 30
[2018-08-25 11:30] LABS: Glucose,Whole Blood 136 mg/dL (75-99)
--- NOTE | 2018-08-25 12:13 | P.PN ---
Subjective Progress Note Date: 08/25/18 Principal diagnosis: Multivessel coronary artery disease, acute non-ST elevation myocardial infarction 67-year-old female patient with known history of chronic atrial fibrillation, coronary artery disease with previous coronary intervention and stenting back in 2003, hypertension and hyperlipidemia and CHF with diastolic heart failure and an ejection fraction of 50%. The patient is a chronic ex-smoker and she has quit smoking in March 2018 and she was peripheral artery disease and chronic osteoarthritis and she is obese with a BMI of 53.6. The patient was recently admitted to the hospital on 08/03/2018 for symptoms of worsening shortness of breath and lightheadedness. During the admission the patient abnormal troponins. The patient back then diffuse cardiac catheterization and she went home. She came back to the emergency department on 08/15/2018 with progressive dyspnea and lower extremity swelling. At that time she was seen by cardiology. EKG showed atrial fibrillation controlled rate. The patient had a normal kidney function. The patient underwent a cardiac catheterization and showed 80% stenosis in the left main, 70% stenosis of diagonal artery, 80% stenosis of the proximal circumflex artery, totally occluded RCA with collaterals from the left system. The patient is currently in the intensive care unit. She is on IV heparin. The patient will be seen by cardiothoracic surgery team for a surgical evaluation and recommendations for revascularization surgery. Her chest x-ray showing some limited scarring in segment V changes in lung bases bilaterally. There is also some mild cardiomegaly. The patient is currently on Bumex 1 mg twice a day. The patient is also on aspirin, IV heparin, lisinopril 2.5 mg by mouth daily Coreg 3.125 mg by mouth twice a day. On today's evaluation of 08/18/2018 the patient is hemodynamically stable, co mfortable free of any chest pain and free of any shortness of breath. She is still awaiting cardiac bypass surgery. Based on our calculation, her surgical risk is in the order of 11% mortality. The patient's FEV1 is normal at of 47% of predicted and this is consistent with restrictive lung disease due to obesity. She also has bilateral carotid artery stenosis on the Dopplers and the patient would have a CT angios of the neck. The patient has significant plaquing in the internal carotid artery on the left in the order of 70%. There is also bilateral external carotid artery disease in the order of 50-70%. The patient is currently on IV heparin. She is also on Bumex 1 mg twice a day. No angina. No other complaints otherwise for now. Reevaluated today on 08/19/2018, patient remains in the ICU, comfortable, denies any chest pain, denies any shortness of breath. Patient is being considered for myocardial revascularization, she was already cleared by surgery by Dr. Banerjee, FEV1 was noted to be at 47% of the predicted value, she has restrictive lung disease secondary to obesity. And she was found to have bilateral carotid artery disease on Doppler and on CT angiogram of the neck showing 80% stenosis of proximal left internal carotid artery, occlusion of the right internal carotid artery at its origin. Patient is not requiring any pressors at this point, she is hemodynamically stable, and again she is asymptomatic O2 sat is 94% on 2 L nasal cannula, doing great with incentive spirometry. Remains on heparin drip for atrial fibrillation, CBC showed a hemoglobin of 7.8 WBC count is 7.6, electrolytes are normal renal profile is normal. Patient was seen today on 08/20/2018, remains in the intensive care unit, but she is being transferred to a monitor bed on selective. She is asymptomatic, in no distress, no cough no wheezing no shortness of breath no chest pain, she is hemodynamically stable, O2 saturations 97% on room air, doing extremely well with incentive spirometry, she had some loose stools last night, her labs this morning are relatively unremarkable, remains on heparin drip for atrial fibrillation, and my understanding is her surgery is scheduled in the next 3 days. Reevaluated today on 08/21/2018, patient is doing well, asymptomatic, scheduled to undergo myocardial revascularization in 2 days. No cough no wheezing no fever no chills no hemoptysis. Presently and a recliner, asymptomatic. Compliant with incentive spirometry, CBC is relatively normal hemoglobin is 9.5, electrode are normal. Reevaluated today on 08/22/2018, patient remains in the ICU, she is an overflow from the cardiac floor. Scheduled to undergo myocardial revascularization tomorrow. Patient is doing well with incentive spirometry, presently on room air, ambulatory, in no distress. CBC is relatively normal hemoglobin is 7.9 electrolytes and renal profile are normal. Patient remains on heparin, stool for occult blood was negative on 08/18. Had previous history of hemorrhoids On 08/23/2018 patient seen in follow-up in the intensive care unit, she underwent myocardial revascularization today by Dr. Palm, off-pump three- vessel coronary artery bypass, with sequential MURDOCK to LAD and the diagonal saphenous vein graft to obtuse marginal with ligation of left atrial appendage with Atri-clip. Patient did experience a run of V. fib Intra-Op after closing of the chest, she was defibrillated once, and converted to sinus rhythm. Was started on amiodarone drip per protocol. Patient was then noted to be bradycardic, requiring dopamine drip, postop hemoglobin was 7.2, intraoperatively her hemoglobin was as low as 5. Preoperative hemoglobin was 8.7. Patient received a total of 4 units of packed red blood cells. She was given albumin. Did have issues with low cardiac output and indices, chair improving with the blood transfusions and volume resuscitation. Most currently her cardiac output is 3.5, and cardiac index is 1.9. PA pressures of 33/26, blo od pressure is 108/41, she was hypothermic with a temperature of 93.9, and she is being rewarmed, and blood transfusion is being warmed. He is intubated, on mechanical ventilator, with current vent settings assist control mode of ventilation, with a rate of 12, tidal volume 400, FiO2 100% and PEEP of 10, postop blood gases were obtained, and showed pO2 of 167, pCO2 of 51, and pH of 7.22. Ventilator adjustments were made, rate was admitted to 16, tidal volume was increased to 450. Repeat blood gas was obtained, and showed improvement, with pO2 of 158, pCO2 44, and pH of 7.30. Other IVs include lactated Ringer's at a rate of 50 ML per hour, nitroglycerin drip is currently at 5 mics per min [place], insulin drip is at 6 units per hour, amiodarone drip is currently at 0.5 mg per hour, Diprivan and is at 5 mics per kilo per minute, dopamine is currently at 3 mics per kilo per minute. Postop chest x-ray has been reviewed by Dr. Wheeler, and showed ET tube, OG tube, chest tubes, [place] catheter all appropriately placed, no residual pneumothoraces, basilar atelectasis. Patient has left pleural and right pleural/mediastinal chest tubes in place, with small amount of sanguinous drainage, ID season, and patient is nonoliguric. Sternal incision is clean dry and intact, chest tube sites are clean dry and intact. On 08/24/2018, patient is postoperative day #1, presently on mechanical ve ntilation, couldn't extubated the patient last night mostly because of her respiratory rate was quite high on CPAP. Today the patient was switched to Precedex, and attempted another trial of weaning, her weaning parameters were reviewed, and after an hour on CPAP, patient tolerated weaning quite well, and she was extubated.CPAP ABG was noted to be excellent, and the patient was noted to be calm her on Precedex.chest x-ray this morning showed cardiomegaly and mild vascular congestion left basilar atelectasis is also noted.she did receive a total of 1 unit of packed RBCs intraoperatively and 3 units postoperatively. Patient is postoperative day #1, off pump coronary artery bypass grafting 3 with sequential MURDOCK to LAD, and diagonal, reverse saphenous graft to obtuse marginal artery.labs today showed a 70% of 10 hemoglobin of 8.5.electrolytes and renal profile are normal Patient was reevaluated today on 08/25/2018, postoperative day #2. Status post CABG 3 sequential MURDOCK to LAD, and diagonal. Reverse saphenous vein graft to obtuse marginal artery and ligation of left atrial appendage. Patient was extubated yesterday uneventfully, and she continues to do fairly well clinically. She did have intraoperative ventricular fibrillation requiring 1 shock and conversion to sinus rhythm, she did require intraoperative and postoperative blood transfusion for bleeding. At her baseline hemoglobin was poor to begin with. Patient is presently on nasal cannula, saturating nicely, being titrated down. Her chest x-ray did show evidence of interstitial edema and she received Lasix earlier by cardiac surgery. She is poor with incentive spirometry, does not seem to be in any distress.small left-sided pleural effusion was noted Objective - Vital Signs Vital signs: Vital Signs Temp 97.5 F L 08/24/18 16:00 Pulse 68 08/25/18 11:30 Resp 20 08/25/18 09:00 BP 100/53 08/25/18 09:00 Pulse Ox 98 08/25/18 09:00 Intake & Output 08/24/18 08/25/18 08/25/18 18:59 06:59 18:59 Intake Total 2021.459 611.867 545.367 Output Total 1043 650 320 Balance 979.459 -38.133 225.367 Weight 129 kg Intake: IV 1630.5 579 417 Albumin Human 5% 250 ml 750 In Empty Bag 1 bag @ 250 mls/hr IVPB Q1HR PRN Rx#: [id number] CO/CI 120 140 30 Lactated Ringers 1,000 ml 460 340 60 @ 20 mls/hr IV .Q24H [facility] Rx#:[id number] Magnesium Sulfate-D5w Pmx 200 1 gm In Dextrose/Water 1 100ml.bag @ 100 mls/hr IVPB Q1H [facility] Rx#: [id number] Nitroglycerin-D5w Pmx 50 1.5 mg In Dextrose/Water 1 250ml.bag @ 5 MCG/MIN 1.5 mls/hr IV .Q24H [facility] Rx#: [id number] Potassium Chloride 10 meq 100 In Water For Injection 1 100ml.bag @ 100 mls/hr IVPB Q1H [facility] Rx#: [id number] ceFAZolin 3 gm In Sodium 200 Chloride 0.9% 100 ml @ 100 mls/hr IVPB Q8HR [facility] Rx#:[id number] pressure bag 99 99 27 Intake, IV Titration 391.959 32.867 8.367 Amount Amiodarone 360 mg In 200 Dextrose 5% in Water 200 ml @ 1 MG/MIN 33.333 mls/ hr IV .Q6H1M ONE Rx#: [id number] DOPamine DRIP 800 mg In 110.726 19.45 Dextrose/Water 1 250ml. bag @ 2 MCG/KG/MIN 4.631 mls/hr IV .Q24H [facility] Rx#: [id number] Dexmedetomidine/0.9% NaCl 18.477 (Pmx) 400 mcg In Empty Bag 1 bag @ Titrate IV . Q0M [facility] Rx#:[id number] Insulin Regular 100 unit 30.933 13.417 8.367 In Sodium Chloride 0.9% 100 ml @ Titrate IV .Q0M [facility] Rx#:[id number] Nitroglycerin-D5w Pmx 50 26.05 mg In Dextrose/Water 1 250ml.bag @ 5 MCG/MIN 1.5 mls/hr IV .Q24H [facility] Rx#: [id number] Propofol 1,000 mg In 5.773 Empty Bag 1 bag @ Titrate IV .Q0M [facility] Rx#: [id number] Oral 120 Output: Chest Tube Drainage 528 280 70 Left Pleural 138 80 50 Right Pleural/Mediastinal 390 200 20 Drainage 0 0 Left [place] 0 0 Urine 515 370 250 Other: Voiding Method Indwelling Catheter Indwelling Catheter Indwelling Catheter ABP, PAP, CO, CI - Last Documented Arterial Blood Pressure 124/51 Pulmonary Artery Pressure 35/26 Cardiac Output 4.1 Cardiac Index 2.3 - Exam GENERAL EXAM: Sedated, obese 67-year-old white female, sitting in a recliner, on nasal cannula, in no distress. HEENT: PERRLA, EOMI, no neck masses, no JVD, moist mucous membranes. Neck is supple. CHEST: No chest wall deformity. Symmetrical expansion. Midsternal incision is clean dry and intact, sternum is covered with surgical dressing, mediastinal, and right pleural, and left pleural chest tubes are in place, LUNGS: diminished breath sounds at the bases bilaterally. Breathing is nonlabored. Mediastinal right sided chest tube on wall suction, 190 ML's of serosanguineous drainage overnight, 700 mL in the last 24 hours. Left pleural chest tube continues on suction 200 mL drained in the last 24 hours. Trace of air leak present in the mediastinal/right sided chest tube. CVS: Regular rate and rhythm, normal S1 and S2, no gallops, no murmurs, no rubs. The sternum seems to be stable. ABDOMEN: Soft, nontender. No hepatosplenomegaly, normal bowel sounds, no guarding or rigidity. EXTREMITIES: No clubbing, no edema, no cyanosis, 2+ pulses and upper and lower extremities. MUSCULOSKELETAL: Muscle strength and tone normal. SPINE: No scoliosis or deformity SKIN: No rashes CENTRAL NERVOUS SYSTEM: alert oriented 3, no gross focal neurologic deficit follows all instructions while on mechanical ventilation. - Labs CBC & Chem 7: 08/25/18 04:00 08/25/18 04:00 Labs: Abnormal Lab Results - Last 24 Hours (Table) 08/24/18 08/24/18 08/24/18 Range/Units 12:00 13:13 15:26 RBC (3.80-5.40) m/uL Hgb (11.4-16.0) gm/dL Hct (34.0-46.0) % RDW (11.5-15.5) % Plt Count (150-450) k/uL Neutrophils # (1.3-7.7) k/uL Lymphocytes # (1.0-4.8) k/uL ABG pO2 (83-108) mmHg ABG Total CO2 (19-24) mmol/L ABG O2 Saturation (94-97) % Chloride (98-107) mmol/L Carbon Dioxide (22-30) mmol/L POC Glucose (mg/dL) 117 H 113 H 102 H (75-99) mg/dL Calcium (8.4-10.2) mg/dL Alkaline Phosphatase (38-126) U/L Total Protein (6.3-8.2) g/dL Albumin (3.5-5.0) g/dL 08/24/18 08/24/18 08/24/18 Range/Units 17:45 19:14 20:16 RBC (3.80-5.40) m/uL Hgb (11.4-16.0) gm/dL Hct (34.0-46.0) % RDW (11.5-15.5) % Plt Count (150-450) k/uL Neutrophils # (1.3-7.7) k/uL Lymphocytes # (1.0-4.8) k/uL ABG pO2 (83-108) mmHg ABG Total CO2 (19-24) mmol/L ABG O2 Saturation (94-97) % Chloride (98-107) mmol/L Carbon Dioxide (22-30) mmol/L POC Glucose (mg/dL) 134 H 171 H 100 H (75-99) mg/dL Calcium (8.4-10.2) mg/dL Alkaline Phosphatase (38-126) U/L Total Protein (6.3-8.2) g/dL Albumin (3.5-5.0) g/dL 08/24/18 08/24/18 08/24/18 Range/Units 21:05 22:09 23:03 RBC (3.80-5.40) m/uL Hgb (11.4-16.0) gm/dL Hct (34.0-46.0) % RDW (11.5-15.5) % Plt Count (150-450) k/uL Neutrophils # (1.3-7.7) k/uL Lymphocytes # (1.0-4.8) k/uL ABG pO2 (83-108) mmHg ABG Total CO2 (19-24) mmol/L ABG O2 Saturation (94-97) % Chloride (98-107) mmol/L Carbon Dioxide (22-30) mmol/L POC Glucose (mg/dL) 111 H 125 H 126 H (75-99) mg/dL Calcium (8.4-10.2) mg/dL Alkaline Phosphatase (38-126) U/L Total Protein (6.3-8.2) g/dL Albumin (3.5-5.0) g/dL 08/24/18 08/25/18 08/25/18 Range/Units 23:58 00:55 01:12 RBC (3.80-5.40) m/uL Hgb (11.4-16.0) gm/dL Hct (34.0-46.0) % RDW (11.5-15.5) % Plt Count (150-450) k/uL Neutrophils # (1.3-7.7) k/uL Lymphocytes # (1.0-4.8) k/uL ABG pO2 27 L* (83-108) mmHg ABG Total CO2 25 H (19-24) mmol/L ABG O2 Saturation 45.5 L (94-97) % Chloride (98-107) mmol/L Carbon Dioxide (22-30) mmol/L POC Glucose (mg/dL) 126 H 121 H (75-99) mg/dL Calcium (8.4-10.2) mg/dL Alkaline Phosphatase (38-126) U/L Total Protein (6.3-8.2) g/dL Albumin (3.5-5.0) g/dL 08/25/18 08/25/18 08/25/18 Range/Units 02:33 03:09 04:00 RBC 2.76 L (3.80-5.40) m/uL Hgb 7.8 L (11.4-16.0) gm/dL Hct 24.3 L (34.0-46.0) % RDW 21.2 H (11.5-15.5) % Plt Count 87 L (150-450) k/uL Neutrophils # 9.0 H (1.3-7.7) k/uL Lymphocytes # 0.8 L (1.0-4.8) k/uL ABG pO2 (83-108) mmHg ABG Total CO2 (19-24) mmol/L ABG O2 Saturation 97.2 H (94-97) % Chloride (98-107) mmol/L Carbon Dioxide (22-30) mmol/L POC Glucose (mg/dL) 108 H (75-99) mg/dL Calcium (8.4-10.2) mg/dL Alkaline Phosphatase (38-126) U/L Total Protein (6.3-8.2) g/dL Albumin (3.5-5.0) g/dL 08/25/18 08/25/18 08/25/18 Range/Units 04:00 04:58 07:09 RBC (3.80-5.40) m/uL Hgb (11.4-16.0) gm/dL Hct (34.0-46.0) % RDW (11.5-15.5) % Plt Count (150-450) k/uL Neutrophils # (1.3-7.7) k/uL Lymphocytes # (1.0-4.8) k/uL ABG pO2 (83-108) mmHg ABG Total CO2 (19-24) mmol/L ABG O2 Saturation (94-97) % Chloride 119 H (98-107) mmol/L Carbon Dioxide 15 L (22-30) mmol/L POC Glucose (mg/dL) 113 H 132 H (75-99) mg/dL Calcium 7.9 L (8.4-10.2) mg/dL Alkaline Phosphatase 33 L (38-126) U/L Total Protein 4.1 L (6.3-8.2) g/dL Albumin 2.3 L (3.5-5.0) g/dL 08/25/18 08/25/18 08/25/18 Range/Units 08:09 08:43 10:04 RBC (3.80-5.40) m/uL Hgb (11.4-16.0) gm/dL Hct (34.0-46.0) % RDW (11.5-15.5) % Plt Count (150-450) k/uL Neutrophils # (1.3-7.7) k/uL Lymphocytes # (1.0-4.8) k/uL ABG pO2 (83-108) mmHg ABG Total CO2 (19-24) mmol/L ABG O2 Saturation (94-97) % Chloride (98-107) mmol/L Carbon Dioxide (22-30) mmol/L POC Glucose (mg/dL) 124 H 137 H 140 H (75-99) mg/dL Calcium (8.4-10.2) mg/dL Alkaline Phosphatase (38-126) U/L Total Protein (6.3-8.2) g/dL Albumin (3.5-5.0) g/dL 08/25/18 Range/Units 10:56 RBC (3.80-5.40) m/uL Hgb (11.4-16.0) gm/dL Hct (34.0-46.0) % RDW (11.5-15.5) % Plt Count (150-450) k/uL Neutrophils # (1.3-7.7) k/uL Lymphocytes # (1.0-4.8) k/uL ABG pO2 (83-108) mmHg ABG Total CO2 (19-24) mmol/L ABG O2 Saturation (94-97) % Chloride (98-107) mmol/L Carbon Dioxide (22-30) mmol/L POC Glucose (mg/dL) 136 H (75-99) mg/dL Calcium (8.4-10.2) mg/dL Alkaline Phosphatase (38-126) U/L Total Protein (6.3-8.2) g/dL Albumin (3.5-5.0) g/dL Assessment and Plan Assessment: 1 symptomatic multivessel coronary artery disease, status post myocardial revascularization, postoperative day #2, extubated yesterday uneventfully. 2 acute blood loss anemia, and expected outcome of bypass surgery 3 Intraoperative V. fib requiring defibrillation 1 and brought to sinus rhythm. 4 severe obstructive and restrictive lung disease 5 acute non-ST elevation myocardial infarction 6 benign essential hypertension 7 chronic atrial fibrillation 8 morbid obesity 9 carotid artery disease 10 chronic venous insufficiency 11 history of smoking, quit in March of 2018. 12 chronic anemia 13 peripheral vessel occlusive disease, involving both lower extremities. Plan: titrate oxygen to keep saturation above 90%, agree with diuretics, maximize medical therapy including low-dose aspirin, statin, Plavix, beta blockers, continue to hold eliquis for now. Increase activity and ambulate as tolerated, PT/OT/cardiac rehab to follow. continue bronchodilators. Continue to encourage smoking cessation Continue incentive spirometry GI and DVT prophylaxis Continue to monitor glucoses and treat accordingly, Pain control Patient will remain in the ICU, and we'll continue to follow closely. Time with Patient: Less than 30
[2018-08-25 12:16] LABS: Glucose,Whole Blood 110 mg/dL (75-99)
[2018-08-25] MEDS: SODIUM BICARBONATE TAB 650 MG TAB PO SCH ×2 (12:42→20:59)
--- NOTE | 2018-08-25 13:23 | PN ---
PROGRESS NOTE Ekaterina is a 67-year-old lady with coronary artery disease, status post CABG postop day number two. She is doing well and is free of symptoms. Has mild respiratory insufficiency. On exam, heart rate is 68 beats per minute. Blood pressure is 120/50, respiratory rate 18. Chest exam reveals diminished air entry at the bases. Heart exam reveals first and second heart sounds. No gallop. No murmur. I do not hear any pericardial rub. Abdomen is soft. Exam of extremities did not reveal edema. Peripheral pulses are felt. The patient is on aspirin, Lipitor, Plavix and dopamine as needed and metoprolol 12.5 b.i.d. ASSESSMENT: 1. Coronary artery disease status post coronary artery bypass grafting. 2. Bilateral carotid stenosis. PLAN: Patient is doing better. She will work on incentive spirometry. MMLIANNAL / ANITAN: [id number] /
[2018-08-25 17:31] LABS: Glucose,Whole Blood 114 mg/dL (75-99)
[2018-08-25 20:51] LABS: Glucose,Whole Blood 129 mg/dL (75-99)
[2018-08-25] MEDS: SENNOSIDES-DOCUSATE SODIUM 1 EACH TAB PO SCH (20:58)
--- NOTE | 2018-08-26 04:05 | PN ---
PROGRESS NOTE DATE OF SERVICE: 08/25/2018 PRESENTING COMPLAINT: Coronary bypass. INTERVAL HISTORY: Patient is status post coronary bypass, was extubated yesterday. Has been off dopamine. This morning did get 1 dose of IV Lasix. Did tolerate clear liquids. Chest tubes remain in place. The patient had atrial fibrillation but now in sinus rhythm. Breathing is stable. REVIEW OF SYSTEMS: Done for constitutional, cardiovascular, GI, pulmonary and findings as above. CURRENT MEDICATIONS: Reviewed. The patient is off the dopamine, getting IV amiodarone; also on Lopressor. PHYSICAL EXAMINATION: Temperature 98.4, pulse 87, respiration 20, blood pressure 88/51, pulse ox 95 percent on 3 L. GENERAL APPEARANCE: Sitting up in a chair, awake, talking. EYES: Pupils equal. Conjunctivae pale. NECK: JVD unable to assess. Mass not palpable. Respiratory effort increased. LUNGS: Diminished breath sounds. CARDIOVASCULAR: First and second heart sounds muffled. Some edema. ABDOMEN: Soft, nontender. Liver and spleen not palpable. CHEST WALL: Chest tubes in place. PSYCHIATRY: Alert and orient x3. Mood and affect normal. INVESTIGATIONS: White count 10.5, hemoglobin 7.8, platelets 87, potassium 3.9 BUN and creatinine is normal. Accu-Cheks are noted. ASSESSMENT: 1. Status post coronary bypass. 2. Coronary artery disease per cardiac cath. 3. Acute on chronic congestive heart failure exacerbation from diastolic systolic dysfunction, EF 35-40 percent from underlying coronary artery disease, stabilized. 4. Hypertensive heart disease. 5. Paroxysmal atrial flutter fibrillation, currently in sinus rhythm. 6. Essential hypertension. 7. Primary osteoarthritis. 8. Complete occlusion of the right internal carotid artery, 90% of the left internal carotid artery. 9. Acute non-ST elevation myocardial infarction. 10.Severe chronic obstructive pulmonary disease. 11.Peripheral artery disease. 12.Chronic venous insufficiency, lower extremity. 13.Dilutional thrombocytopenia. 14.Acute postoperative blood loss anemia expected from surgery clarification. 15.Occlusion of the right internal carotid artery at its origin and of the proximal left internal carotid artery 80%. PLAN: Continue current medication and treatment plan. The patient's Lopressor back as her breathing is stable. Diet is being gradually advanced. The patient is off the dopamine. Anticoagulation per Cardiology. Follow. MMODL / IJN: [id number] /
[2018-08-26 04:34] LABS: Anisocytosis Moderate; HCT 23.1 % (34.0-46.0); HGB 7.4 gm/dL (11.4-16.0); Hypochromasia Slight; MCH 28.5 pg (25.0-35.0); MCHC 32.2 g/dL (31.0-37.0); MCV 88.6 fL (80.0-100.0); Mean Platelet Volume 11.9; Microcytosis Slight; Poikilocytosis Slight; RBC 2.61 m/uL (3.80-5.40); RDW 21.1 % (11.5-15.5); WBC 10.1 k/uL (3.8-10.6)
[2018-08-26 04:59] LABS: Ionized Calcium 6.3 mg/dL (4.5-5.3)
[2018-08-26 05:10] LABS: Band Neutrophils % 1 %; Lymphocytes # (M) 0.71 k/uL (1.0-4.8); Monocytes # (M) 0.51 k/uL (0-1.0); Neutrophils % (M) 87 %; Nucleated Red Blood Cells 0 /100 WBC (0-0); Total Cells Counted 100
[2018-08-26 05:12] LABS: Calcium 10.6 mg/dL (8.4-10.2); Magnesium 2.5 mg/dL (1.6-2.3); Potassium 4.6 mmol/L (3.5-5.1); Total Protein 5.2 g/dL (6.3-8.2)
[2018-08-26] MEDS ORDERED: ACETAMINOPHEN TAB 325 MG TAB PO PRN ×2 (06:43)
[2018-08-26 07:09] LABS: Glucose,Whole Blood 106 mg/dL (75-99)
[2018-08-26] MEDS: KETOROLAC 30 MG/ML 1 ML VIAL IVP SCH ×3 (07:10→17:34)
[2018-08-26] MEDS: INSULIN ASPART (NovoLOG) 100 UNIT/ML VIAL SQ SCH ×4 (07:10→21:46)
[2018-08-26] MEDS: HEPARIN SODIUM,PORCINE 5,000 UNIT/ML 1 ML VIAL SQ SCH ×3 (07:11→21:45)
[2018-08-26 07:36] LABS: Anisocytosis Moderate; HCT 22.6 % (34.0-46.0); HGB 7.5 gm/dL (11.4-16.0); Hypochromasia Moderate; MCH 29.2 pg (25.0-35.0); MCV 88.5 fL (80.0-100.0); Mean Platelet Volume 10.7; Poikilocytosis Slight; RBC 2.55 m/uL (3.80-5.40); RDW 20.7 % (11.5-15.5); WBC 10.1 k/uL (3.8-10.6)
[2018-08-26] MEDS: IPRATROPIUM-ALBUTEROL 3 ML NEB INHALATION SCH ×4 (07:51→20:29)
--- NOTE | 2018-08-26 08:01 | XR ---
EXAMINATION TYPE: XR chest 1V portable DATE OF EXAM: 08/26/2018 COMPARISON: 08/25/2018 HISTORY: SOB, Follow Up FINDINGS: Right IJ sheath is noted. Basilar chest tubes are seen bilaterally. Tiny left apical pneumothorax not ed at less than 10%. Scattered pleural parenchymal infiltrates and atelectasis. Hilar and basilar reg ions. Continued cardiomegaly. IMPRESSION: 1. Indwelling tubes and catheters as noted. 2. Tiny left apical pneumothorax. 3. Scattered infiltrates and/or atelectasis as discussed.
[2018-08-26] MEDS: PANTOPRAZOLE 40 MG TABLET PO SCH (08:10)
[2018-08-26] MEDS: FERROUS SULFATE 325 MG TAB PO SCH ×2 (08:10→17:34)
[2018-08-26] MEDS: ASCORBIC ACID 500 MG TAB PO SCH ×2 (08:10→17:34)
[2018-08-26] MEDS: ATORVASTATIN 40 MG TAB PO SCH (08:11)
[2018-08-26] MEDS: ASPIRIN 81 MG PO SCH (08:11)
[2018-08-26] MEDS: CLOPIDOGREL 75 MG TAB PO SCH (08:11)
[2018-08-26 08:12] LABS: Platelet Count 102 k/uL (150-450)
[2018-08-26] MEDS: METOPROLOL TARTRATE 12.5 MG TAB PO SCH ×3 (08:12→21:43)
[2018-08-26] MEDS: SODIUM BICARBONATE TAB 650 MG TAB PO SCH ×2 (08:12→21:44)
[2018-08-26] MEDS: CINACALCET 30 MG TAB PO SCH ×2 (08:12→21:47)
--- NOTE | 2018-08-26 08:23 | P.PN ---
Subjective Progress Note Date: 08/26/18 Principal diagnosis: Non-ST elevation myocardial infarction, symptomatic multivessel coronary artery disease with left main disease, acute on chronic diastolic heart failure, chron ic atrial fibrillation, history of coronary artery disease with previous stent placement 2003, hypertension, hyperlipidemia, morbid obesity, peripheral vascular disease, bilateral carotid artery stenosis with totally occluded right ICA and left ICA with 80% stenosis, previous tobacco dependence, severe restrictive lung disease with preoperative FEV1 47% of predicted, chronic normocytic anemia, and osteoarthritis. POD #3 off-pump coronary artery bypass grafting 3 with sequential left internal mammary artery to the left anterior descending artery and diagonal, reverse saphenous vein graft to the obtuse marginal artery, ligation of the left atrial appendage with 35 mm AtriClip. Endovascular vein harvest of the left lower extremity from the knee to the groin level. Intraoperative transesophageal echocardiogram by anesthesia. Intraoperative and postoperative acute blood loss, unexpected, surgery given patient's preoperative anemia. Postoperative thrombocytopenia, expected outcome of surgery. Intraoperative V. fib requiring one shock with conversion to sinus rhythm, unexpected but potential outcome. The patient is currently sitting up in the recliner in no acute distress in the intensive care unit. States pain is well controlled on current medication regimen and denies significant shortness of breath. She remains in normal sinus rhythm and hemodynamically stable on no inotropes or pressors. She is attempting her incentive spirometry but with poor effort. She has no new complaints. Objective - Vital Signs Vital signs: Vital Signs Temp 98 F 08/26/18 08:00 Pulse 74 08/26/18 08:06 Resp 25 H 08/26/18 08:00 BP 93/68 08/26/18 08:00 Pulse Ox 99 08/26/18 08:00 Intake & Output 08/25/18 08/26/18 08/26/18 18:59 06:59 18:59 Intake Total 889.367 513 66 Output Total 1142 530 145 Balance -252.633 -17 -79 Weight 128.5 kg Intake: IV 761 363 66 CO/CI 60 Lactated Ringers 1,000 ml 320 330 60 @ 20 mls/hr IV .Q24H [facility] Rx#:[id number] Magnesium Sulfate-D5w Pmx 200 1 gm In Dextrose/Water 1 100ml.bag @ 100 mls/hr IVPB Q1H [facility] Rx#: [id number] Potassium Chloride 10 meq 100 In Water For Injection 1 100ml.bag @ 100 mls/hr IVPB Q1H [facility] Rx#: [id number] pressure bag 81 33 6 Intake, IV Titration 8.367 Amount Insulin Regular 100 unit 8.367 In Sodium Chloride 0.9% 100 ml @ Titrate IV .Q0M [facility] Rx#:[id number] Oral 120 150 Output: Chest Tube Drainage 480 170 70 Left Pleural 180 90 50 Right Pleural/Mediastinal 300 80 20 Urine 662 360 75 Other: Voiding Method Indwelling Catheter Indwelling Catheter Indwelling Catheter ABP, PAP, CO, CI - Last Documented Arterial Blood Pressure 113/56 Pulmonary Artery Pressure 26/18 Cardiac Output 4.7 Cardiac Index 2.3 - Constitutional General appearance: Present: cooperative, morbidly obese, no acute distress - Respiratory Details: Lungs sounds diminished bilaterally. Respirations even, nonlabored. Currently on 2 L nasal cannula with oxygen saturation 95%. Only able to achieve 500 mL on her incentive spirometry. Strong cough. Mediastinal/right pleural chest tube to continuous wall suction, 50 mL serosanguineous drainage overnight, 350 mL the last 24 hours. Left pleural chest tube to continuous wall suction, 50 mL serosanguineous drainage overnight, 250 mL the last 24 hours. No air leaks present. - Cardiovascular Details: S1, S2 present. Regular rate and rhythm, sinus rhythm on telemetry. Sternum stable. Palpable peripheral pulses bilaterally. Trace generalized edema present. Right internal jugular Cordis present. Heart hugger in place with patient demonstrating appropriate use. Antiembolism stockings, SCDs present. - Gastrointestinal Gastrointestinal Comment(s): Abdomen soft, nontender, nondistended, obese. Active bowel sounds present 4 quadrants. Tolerating diet. Positive flatus, negative bowel movement. - Genitourinary Genitourinary Comment(s): Sotelo present draining clear, yellow urine. Output 30-50 mL/h overnight. - Integumentary Integumentary Comment(s): Skin is warm and dry with evidence of good perfusion. Anterior chest incision well approximated and covered with dry intact dressing. Left lower extremity E VH site well approximated. - Neurologic Neurologic: Present: CNII-XII intact - Musculoskeletal Musculoskeletal: Present: strength equal bilaterally - Psychiatric Psychiatric: Present: A&O x's 3, appropriate affect, intact judgment & insight - Allied health notes Allied health notes reviewed: nursing - Labs CBC & Chem 7: 08/26/18 07:00 08/26/18 04:11 Labs: Abnormal Lab Results - Last 24 Hours (Table) 08/25/18 08/25/18 08/25/18 Range/Units 08:43 10:04 10:56 RBC (3.80-5.40) m/uL Hgb (11.4-16.0) gm/dL Hct (34.0-46.0) % RDW (11.5-15.5) % Neutrophils # (Manual) (1.3-7.7) k/uL Lymphocytes # (Manual) (1.0-4.8) k/uL BUN (7-17) mg/dL POC Glucose (mg/dL) 137 H 140 H 136 H (75-99) mg/dL Calcium (8.4-10.2) mg/dL Ionized Calcium Saúl (4.5-5.3) mg/dL Magnesium (1.6-2.3) mg/dL Total Protein (6.3-8.2) g/dL Albumin (3.5-5.0) g/dL 08/25/18 08/25/18 08/25/18 Range/Units 12:13 17:27 20:48 RBC (3.80-5.40) m/uL Hgb (11.4-16.0) gm/dL Hct (34.0-46.0) % RDW (11.5-15.5) % Neutrophils # (Manual) (1.3-7.7) k/uL Lymphocytes # (Manual) (1.0-4.8) k/uL BUN (7-17) mg/dL POC Glucose (mg/dL) 110 H 114 H 129 H (75-99) mg/dL Calcium (8.4-10.2) mg/dL Ionized Calcium Saúl (4.5-5.3) mg/dL Magnesium (1.6-2.3) mg/dL Total Protein (6.3-8.2) g/dL Albumin (3.5-5.0) g/dL 08/26/18 08/26/18 08/26/18 Range/Units 04:11 04:11 06:55 RBC 2.61 L (3.80-5.40) m/uL Hgb 7.4 L (11.4-16.0) gm/dL Hct 23.1 L (34.0-46.0) % RDW 21.1 H (11.5-15.5) % Neutrophils # (Manual) 8.80 H (1.3-7.7) k/uL Lymphocytes # (Manual) 0.71 L (1.0-4.8) k/uL BUN 25 H (7-17) mg/dL POC Glucose (mg/dL) 106 H (75-99) mg/dL Calcium 10.6 H (8.4-10.2) mg/dL Ionized Calcium Saúl 6.3 H* (4.5-5.3) mg/dL Magnesium 2.5 H (1.6-2.3) mg/dL Total Protein 5.2 L (6.3-8.2) g/dL Albumin 3.0 L (3.5-5.0) g/dL 08/26/18 Range/Units 07:00 RBC 2.55 L (3.80-5.40) m/uL Hgb 7.5 L (11.4-16.0) gm/dL Hct 22.6 L (34.0-46.0) % RDW 20.7 H (11.5-15.5) % Neutrophils # (Manual) (1.3-7.7) k/uL Lymphocytes # (Manual) (1.0-4.8) k/uL BUN (7-17) mg/dL POC Glucose (mg/dL) (75-99) mg/dL Calcium (8.4-10.2) mg/dL Ionized Calcium Saúl (4.5-5.3) mg/dL Magnesium (1.6-2.3) mg/dL Total Protein (6.3-8.2) g/dL Albumin (3.5-5.0) g/dL - Imaging and Cardiology Chest x-ray: report reviewed, image reviewed Assessment and Plan Assessment: 1. Non-ST elevation myocardial infarction 2. Symptomatic multivessel coronary artery disease with left main disease, status post off-pump coronary artery bypass surgery 3. Acute on chronic diastolic heart failure 4. Chronic atrial fibrillation on Eliquis at home for anticoagulation, status post left atrial appendage ligation 5. History of coronary artery disease with previous stent placement in 2003 6. Hypertension 7. Hyperlipidemia 8. Morbid obesity 9. Peripheral vascular disease 10. Bilateral carotid artery stenosis with totally occluded right ICA and a left ICA with 80% stenosis 11. Previous tobacco dependence 12. Severe restrictive lung disease with preoperative FEV1 47% of predicted 13. Chronic normocytic anemia, with intraoperative and postoperative acute blood loss anemia, status post packed red blood cell transfusion 14. Osteoarthritis 15. Postoperative thrombocytopenia, expected 16. Intraoperative V. fib requiring one shock with conversion to sinus rhythm, unexpected Plan: 1. Continue to maximize medical therapy with low-dose aspirin, statin, Plavix, beta louann therapy. Will increase beta louann therapy as tolerated. Will continue to hold Eliquis for now. 2. Wean O2 as tolerated. Encourage incentive spirometry use 10 times every hour while awake. 3. Increase activity, ambulate in hallway as tolerated. PT/OT/cardiac rehab following. 4. Bronchodilators per pulmonology. 5. Will monitor daily labs and x-rays. Electrolyte replacement per protocol. No further transfusions at this point. Iron/vitamin C added. 6. Encourage continued smoking cessation. 7. Will discontinue chest tubes. Unable to place IV, midline ordered. Once placed will discontinue Cordis. 8. Discontinue Sotelo catheter. 9. GI/Protonix, DVT prophylaxis. 10. Insulin management per primary care service. 11. Pain control with current medication regimen. 12. More recommendations to follow based on patient's clinical course. Time with Patient: Greater than 30
[2018-08-26] MEDS ORDERED: BISACODYL 10 MG SUPP RECTAL PRN (08:31)
[2018-08-26] MEDS ORDERED: MAGNESIUM HYDROXIDE 2,400 MG/10 ML CUP PO PRN (08:31)
--- NOTE | 2018-08-26 10:10 | P.PN ---
Subjective Progress Note Date: 08/26/18 Principal diagnosis: Multivessel coronary artery disease, acute non-ST elevated [place] On 08/23/2018 patient seen in follow-up in the intensive care unit, she underwent myocardial revascularization today by Dr. Palm, off-pump three- vessel coronary artery bypass, with sequential MURDOCK to LAD and the diagonal saphenous vein graft to obtuse marginal with ligation of left atrial appendage with Atri-clip. Patient did experience a run of V. fib Intra-Op after closing of the chest, she was defibrillated once, and converted to sinus rhythm. Was started on amiodarone drip per protocol. Patient was then noted to be bradycardic, requiring dopamine drip, postop hemoglobin was 7.2, intraoperatively her hemoglobin was as low as 5. Preoperative hemoglobin was 8.7. Patient received a total of 4 units of packed red blood cells. She was given albumin. Did have issues with low cardiac output and indices, chair improving with the blood transfusions and volume resuscitation. Most currently her cardiac output is 3.5, and cardiac index is 1.9. PA pressures of 33/26, blood pressure is 108/41, she was hypothermic with a temperature of 93.9, and she is being rewarmed, and blood transfusion is being warmed. He is intubated, on mechanical ventilator, with current vent settings assist control mode of ventilation, with a rate of 12, tidal volume 400, FiO2 100% and PEEP of 10, po stop blood gases were obtained, and showed pO2 of 167, pCO2 of 51, and pH of 7.22. Ventilator adjustments were made, rate was admitted to 16, tidal volume was increased to 450. Repeat blood gas was obtained, and showed improvement, with pO2 of 158, pCO2 44, and pH of 7.30. Other IVs include lactated Ringer's at a rate of 50 ML per hour, nitroglycerin drip is currently at 5 mics per minute, insulin drip is at 6 units per hour, amiodarone drip is currently at 0.5 mg per hour, Diprivan and is at 5 mics per kilo per minute, dopamine is currently at 3 mics per kilo per minute. Postop chest x-ray has been reviewed by Dr. Wheeler, and showed ET tube, OG tube, chest tubes, Forbes-Chucky catheter all appropriately placed, no residual pneumothoraces, basilar atelectasis. Patient has left pleural and right pleural/mediastinal chest tubes in place, with small amount of sanguinous drainage, ID season, and patient is nonoliguric. Sternal incision is clean dry and intact, chest tube sites are clean dry and intact. On 08/26/2018 seen in follow-up in intensive care unit, she is sitting up in the recliner, in no acute distress, she remains on oxygen, currently congested 1.5 L per nasal cannula, pulse ox is 96%, she is afebrile, hemodynamically stable, IV lactated Ringer's at a rate of 30 ML per hour, today is postop day 3 status post three-vessel off-pump coronary artery bypass surgery. His chest x-ray has been reviewed with Dr. Esparza, and shows left tiny apical pneumothorax, scattered i nfiltrates and atelectasis. She received on dose of IV Lasix per CT surgery. She had no recurrence of arrhythmias, amiodarone drip had been discontinued. Patient was started on Lopressor at 12-1/2 mg twice daily. We dynamically she remains stable, she is in sinus mechanism with a controlled rate. Urine is reasonably controlled, patient still has right pleural/mediastinal chest tube in place, with 380 mL of serosanguineous output in the last 24 hours, left pleural chest tube with 270 mL of serosanguineous output. Today's lab work is been reviewed, and showed hemoglobin of 7.5, no leukocytosis, electrolytes and renal profile were relatively unremarkable. Patient is working on her incentive spirometer, her effort is suboptimal, she is only able to achieve 500 mL on the today. Objective - Vital Signs Vital signs: Vital Signs Temp 98 F 08/26/18 08:00 Pulse 82 08/26/18 09:00 Resp 25 H 08/26/18 09:00 BP 96/58 08/26/18 09:00 Pulse Ox 96 08/26/18 09:00 Intake & Output 08/25/18 08/26/18 08/26/18 18:59 06:59 18:59 Intake Total 889.367 513 99 Output Total 1142 530 205 Balance -252.633 -17 -106 Weight 128.5 kg Intake: IV 761 363 99 CO/CI 60 Lactated Ringers 1,000 ml 320 330 90 @ 20 mls/hr IV .Q24H [facility] Rx#:[id number] Magnesium Sulfate-D5w Pmx 200 1 gm In Dextrose/Water 1 100ml.bag @ 100 mls/hr IVPB Q1H [facility] Rx#: [id number] Potassium Chloride 10 meq 100 In Water For Injection 1 100ml.bag @ 100 mls/hr IVPB Q1H [facility] Rx#: [id number] pressure bag 81 33 9 Intake, IV Titration 8.367 Amount Insulin Regular 100 unit 8.367 In Sodium Chloride 0.9% 100 ml @ Titrate IV .Q0M [facility] Rx#:[id number] Oral 120 150 Output: Chest Tube Drainage 480 170 110 Left Pleural 180 90 60 Right Pleural/Mediastinal 300 80 50 Urine 662 360 95 Other: Voiding Method Indwelling Catheter Indwelling Catheter Indwelling Catheter ABP, PAP, CO, CI - Last Documented Arterial Blood Pressure 113/56 Pulmonary Artery Pressure 26/18 Cardiac Output 4.7 Cardiac Index 2.3 - Exam GENERAL EXAM:obese 67-year-old white female, on 1,5 L of oxygen comfortable in no apparent distress. HEAD: Normocephalic/atraumatic. EYES: Normal reaction of pupils, equal size. Conjunctiva pink, sclera white. NOSE: Clear with pink turbinates. THROAT: No erythema or exudates. NECK: No masses, no JVD, no thyroid enlargement, no adenopathy. CHEST: No chest wall deformity. Symmetrical expansion. Midsternal incision is clean dry and intact, sternum is covered with surgical dressing, mediastinal, and right pleural, and left pleural chest tubes are in place, with small amount of sanguinous output in the Pleur-evac, to wall suction, no evidence of air leak. LUNGS: Equal air entry with no crackles, wheeze, rhonchi or dullness. CVS: Regular rate and rhythm, normal S1 and S2, no gallops, no murmurs, no rubs ABDOMEN: Soft, nontender. No hepatosplenomegaly, normal bowel sounds, no guarding or rigidity. EXTREMITIES: No clubbing, no edema, no cyanosis, 2+ pulses and upper and lower extremities. MUSCULOSKELETAL: Muscle strength and tone normal. SPINE: No scoliosis or deformity SKIN: No rashes CENTRAL NERVOUS SYSTEM: Alert, oriented 3 - Labs CBC & Chem 7: 08/26/18 07:00 04/22/19 04:11 Labs: Abnormal Lab Results - Last 24 Hours (Table) 08/25/18 08/25/18 08/25/18 Range/Units 10:04 10:56 12:13 RBC (3.80-5.40) m/uL Hgb (11.4-16.0) gm/dL Hct (34.0-46.0) % RDW (11.5-15.5) % Plt Count (150-450) k/uL Neutrophils # (Manual) (1.3-7.7) k/uL Lymphocytes # (Manual) (1.0-4.8) k/uL BUN (7-17) mg/dL POC Glucose (mg/dL) 140 H 136 H 110 H (75-99) mg/dL Calcium (8.4-10.2) mg/dL Ionized Calcium Saúl (4.5-5.3) mg/dL Magnesium (1.6-2.3) mg/dL Total Protein (6.3-8.2) g/dL Albumin (3.5-5.0) g/dL 08/25/18 08/25/18 08/26/18 Range/Units 17:27 20:48 04:11 RBC 2.61 L (3.80-5.40) m/uL Hgb 7.4 L (11.4-16.0) gm/dL Hct 23.1 L (34.0-46.0) % RDW 21.1 H (11.5-15.5) % Plt Count (150-450) k/uL Neutrophils # (Manual) 8.80 H (1.3-7.7) k/uL Lymphocytes # (Manual) 0.71 L (1.0-4.8) k/uL BUN (7-17) mg/dL POC Glucose (mg/dL) 114 H 129 H (75-99) mg/dL Calcium (8.4-10.2) mg/dL Ionized Calcium Saúl (4.5-5.3) mg/dL Magnesium (1.6-2.3) mg/dL Total Protein (6.3-8.2) g/dL Albumin (3.5-5.0) g/dL 08/26/18 08/26/18 08/26/18 Range/Units 04:11 06:55 07:00 RBC 2.55 L (3.80-5.40) m/uL Hgb 7.5 L (11.4-16.0) gm/dL Hct 22.6 L (34.0-46.0) % RDW 20.7 H (11.5-15.5) % Plt Count 102 L (150-450) k/uL Neutrophils # (Manual) (1.3-7.7) k/uL Lymphocytes # (Manual) (1.0-4.8) k/uL BUN 25 H (7-17) mg/dL POC Glucose (mg/dL) 106 H (75-99) mg/dL Calcium 10.6 H (8.4-10.2) mg/dL Ionized Calcium Saúl 6.3 H* (4.5-5.3) mg/dL Magnesium 2.5 H (1.6-2.3) mg/dL Total Protein 5.2 L (6.3-8.2) g/dL Albumin 3.0 L (3.5-5.0) g/dL Assessment and Plan Plan: Assessment: 1 symptomatic multivessel coronary artery disease, status post myocardial revascularization, postop day 3 2 acute blood loss anemia, and expected outcome of bypass surgery 3 Intraoperative V. fib requiring defibrillation 4 severe obstructive and restrictive lung disease 5 acute non-ST elevation myocardial infarction 6 benign essential hypertension 7 chronic atrial fibrillation 8 morbid obesity 9 carotid artery disease 10 chronic venous insufficiency 11 history of smoking, quit in March of 2018. 12 chronic anemia 13 peripheral vessel occlusive disease, involving both lower extremities. Plan: Continue encouraging deep breathing and coughing, ambulation, today's chest x- ray has been reviewed with Dr. Rueda, and showed scattered atelectasis, small left apical pneumothorax, clinically patient is doing well, but her IS effort remains suboptimal. Continue with the nebulized bronchodilators, he modynamically she stable, no recurrence of arrhythmias. Continue with pain control, any weaning FiO2. We'll continue to follow. I performed a history & physical examination of the patient and discussed their management with my nurse practitioner, Evelyn Malone. I reviewed the nurse practitioner's note and agree with the documented findings and plan of care. Lung sounds are positive for diminished sounds with bibasilar crackles. The findings and the impression was discussed with the patient. I attest to the documentation by the nurse practitioner. Time with Patient: Less than 30
[2018-08-26] MEDS: LACTATED RINGERS 1,000 ML IV SCH (10:55)
[2018-08-26 12:20] LABS: Glucose,Whole Blood 119 mg/dL (75-99)
[2018-08-26 17:09] LABS: Glucose,Whole Blood 180 mg/dL (75-99)
--- NOTE | 2018-08-26 17:31 | PN ---
PROGRESS NOTE Ekaterina is a 67-year-old lady with the left main stenosis was admitted to hospital with non ST-segment elevation SC. Underwent cardiac catheterization bypass surgery. She has mild respiratory insufficiency. Still in the ICU. Overall functional status is marginal and she developed atrial fibrillation with controlled ventricular rate. EXAM: Her heart rate is 80 beats per minute. Blood pressure 94/50. Respiratory is 22. Chest exam reveals diminished air entry at the bases. Heart exam reveals first and second heart sounds, irregular rhythm. No murmur. Exam of the extremities reveal trace edema. Peripheral pulses are felt. LABS: Show a hemoglobin of 7.5, platelet count is 102, potassium is 4.6, creatinine is 0.88. ASSESSMENT: 1. Coronary artery disease status post coronary artery bypass grafting. 2. Postop atrial fibrillation. PLAN: Patient is on amiodarone, aspirin, Lipitor, Lopressor, which I am going to continue. Anticoagulation will be addressed by the surgeon. KIARA / ANITAN: [id number] /
[2018-08-26] MEDS: AMIODARONE 200 MG TAB PO SCH ×2 (17:34→21:50)
--- NOTE | 2018-08-26 20:01 | PN ---
PROGRESS NOTE DATE OF SERVICE: August 26, 2018 PRESENTING COMPLAINT: Coronary bypass. INTERVAL HISTORY: Patient is status post coronary bypass. Chest tubes remain in place. Doing a bit better. Did tolerate a diet. Remains in sinus rhythm. Calcium came back at 6.3. REVIEW OF SYSTEMS: Done for constitutional, cardiovascular, GI, pulmonary; relevant findings as above. CURRENT MEDICATIONS: Reviewed. PHYSICAL EXAMINATION: VITAL SIGNS: Temperature 97.6, pulse 84, respiration 22, blood pressure 185/47, pulse ox 100 percent. GENERAL APPEARANCE: Sitting up in a chair, awake, tired-appearing. EYES: Pupils equal. Conjunctivae pale. NECK: JVD unable to assess. Mass not palpable. RESPIRATORY: Effort increased. LUNGS: Decreased breath sounds. CARDIOVASCULAR: Heart sounds muffled. Some edema. ABDOMEN: Soft, nontender. Liver and spleen not palpable. Chest wall: Chest tubes in place. PSYCHIATRY: Alert and oriented times three. Mood and affect a bit tired. INVESTIGATIONS: White count 10.1, hemoglobin 7.5, platelets 102. Accu-Cheks are noted. Ionized calcium 6.3, magnesium 2.5. ASSESSMENT: 1. Coronary artery bypass. 2. Coronary artery disease. 3. Acute on chronic congestive heart failure exacerbation from diastolic/systolic dysfunction EF 35-40 percent from underlying coronary artery disease, stabilized. 4. Hypertensive heart disease. 5. Paroxysmal atrial flutter fibrillation, currently in sinus rhythm. 6. Essential hypertension. 7. Primary osteoarthritis. 8. Complete occlusion of the right internal carotid artery and 80% of the left internal carotid artery. 9. Acute non-ST elevation myocardial infarction. 10.Severe chronic obstructive pulmonary disease. 11.Peripheral artery disease. 12.Chronic venous insufficiency lower extremity. 13.Dilutional thrombocytopenia. 14.Acute postoperative blood loss anemia expected from surgery. 15.Hypercalcemia in a patient with known hyperparathyroidism. PLAN: We will increase the dose of patient's Sensipar to 60 mg twice a day. We will check patient's ionized calcium and follow the same. MMODL / IJN: [id number] /
[2018-08-26 20:32] LABS: Glucose,Whole Blood 143 mg/dL (75-99)
[2018-08-26] MEDS: SENNOSIDES-DOCUSATE SODIUM 1 EACH TAB PO SCH (21:44)
[2018-08-27] MEDS: KETOROLAC 30 MG/ML 1 ML VIAL IVP SCH ×4 (00:09→17:16)
[2018-08-27 06:06] LABS: Anisocytosis Moderate; HCT 26.9 % (34.0-46.0); HGB 8.5 gm/dL (11.4-16.0); Hypochromasia Moderate; MCH 28.2 pg (25.0-35.0); MCHC 31.5 g/dL (31.0-37.0); MCV 89.6 fL (80.0-100.0); Mean Platelet Volume 10.1; Poikilocytosis Slight; RBC 3.01 m/uL (3.80-5.40); RDW 20.5 % (11.5-15.5); WBC 11.5 k/uL (3.8-10.6)
[2018-08-27 06:10] LABS: Ionized Calcium 6.2 mg/dL (4.5-5.3)
[2018-08-27 06:11] LABS: Platelet Count 174 k/uL (150-450)
[2018-08-27 06:12] LABS: Calcium 11.2 mg/dL (8.4-10.2); Potassium 5.2 mmol/L (3.5-5.1)
[2018-08-27] MEDS: HEPARIN SODIUM,PORCINE 5,000 UNIT/ML 1 ML VIAL SQ SCH (06:53)
[2018-08-27] MEDS: ASCORBIC ACID 500 MG TAB PO SCH ×2 (06:54→17:16)
[2018-08-27] MEDS: PANTOPRAZOLE 40 MG TABLET PO SCH (06:54)
[2018-08-27] MEDS: FERROUS SULFATE 325 MG TAB PO SCH ×2 (06:54→17:16)
[2018-08-27 07:14] LABS: Glucose,Whole Blood 131 mg/dL (75-99)
[2018-08-27] MEDS: INSULIN ASPART (NovoLOG) 100 UNIT/ML VIAL SQ SCH ×4 (07:36→21:00)
[2018-08-27] MEDS: IPRATROPIUM-ALBUTEROL 3 ML NEB INHALATION SCH ×4 (07:48→19:23)
--- NOTE | 2018-08-27 08:16 | XR ---
EXAMINATION TYPE: XR chest 1V portable DATE OF EXAM: 08/27/2018 Comparison: 08/26/2018 Clinical History: 67-year-old female Post cardiac surgery Findings: Sternotomy fixation is present with post-CABG clips. Heart remains moderately enlarged with interstit ial prominence and stranding and patchy mid and lower lung densities. Previously seen trace left apic al pneumothorax no longer identified. Impression: 1. Previously seen trace left apical pneumothorax no longer identified. 2. Continued cardiomegaly and possible pulmonary vascular congestion. 3. Additional continued mid and lower lung areas of atelectasis and/or infiltrates.
[2018-08-27] MEDS: AMIODARONE 200 MG TAB PO SCH ×2 (08:17→21:01)
[2018-08-27] MEDS: ATORVASTATIN 40 MG TAB PO SCH (08:17)
[2018-08-27] MEDS: CLOPIDOGREL 75 MG TAB PO SCH (08:17)
[2018-08-27] MEDS: CINACALCET 30 MG TAB PO SCH ×2 (08:18→21:02)
[2018-08-27] MEDS: SODIUM BICARBONATE TAB 650 MG TAB PO SCH ×2 (08:18→21:02)
[2018-08-27] MEDS: METOPROLOL TARTRATE 12.5 MG TAB PO SCH ×2 (08:18→21:02)
[2018-08-27] MEDS: ASPIRIN 81 MG PO SCH (08:18)
--- NOTE | 2018-08-27 08:37 | P.PN ---
Subjective Progress Note Date: 08/27/18 Principal diagnosis: Multivessel coronary artery disease, acute non-ST elevated LA On 08/23/2018 patient seen in follow-up in the intensive care unit, she underwent myocardial revascularization today by Dr. Palm, off-pump three- vessel coronary artery bypass, with sequential MURDOCK to LAD and the diagonal saphenous vein graft to obtuse marginal with ligation of left atrial appendage with Atri-clip. Patient did experience a run of V. fib Intra-Op after closing of the chest, she was defibrillated once, and converted to sinus rhythm. Was started on amiodarone drip per protocol. Patient was then noted to be bradycardic, requiring dopamine drip, postop hemoglobin was 7.2, intraoperatively her hemoglobin was as low as 5. Preoperative hemoglobin was 8.7. Patient received a total of 4 units of packed red blood cells. She was given albumin. Did have issues with low cardiac output and indices, chair improving with the blood transfusions and volume resuscitation. Most currently her cardiac output is 3.5, and cardiac index is 1.9. PA pressures of 33/26, blood pressure is 108/41, she was hypothermic with a temperature of 93.9, and she is being rewarmed, and blood transfusion is being warmed. He is intubated, on mechanical ventilator, with current vent settings assist control mode of ventilation, with a rate of 12, tidal volume 400, FiO2 100% and PEEP of 10, po stop blood gases were obtained, and showed pO2 of 167, pCO2 of 51, and pH of 7.22. Ventilator adjustments were made, rate was admitted to 16, tidal volume was increased to 450. Repeat blood gas was obtained, and showed improvement, with pO2 of 158, pCO2 44, and pH of 7.30. Other IVs include lactated Ringer's at a rate of 50 ML per hour, nitroglycerin drip is currently at 5 mics per minute, insulin drip is at 6 units per hour, amiodarone drip is currently at 0.5 mg per hour, Diprivan and is at 5 mics per kilo per minute, dopamine is currently at 3 mics per kilo per minute. Postop chest x-ray has been reviewed by Dr. Wheeler, and showed ET tube, OG tube, chest tubes, [place] catheter all appropriately placed, no residual pneumothoraces, basilar atelectasis. Patient has left pleural and right pleural/mediastinal chest tubes in place, with small amount of sanguinous drainage, ID season, and patient is nonoliguric. Sternal incision is clean dry and intact, chest tube sites are clean dry and intact. On 08/26/2018 seen in follow-up in intensive care unit, she is sitting up in the recliner, in no acute distress, she remains on oxygen, currently congested 1.5 L per nasal cannula, pulse ox is 96%, she is afebrile, hemodynamically stable, IV lactated Ringer's at a rate of 30 ML per hour, today is postop day 3 status post three-vessel off-pump coronary artery bypass surgery. His chest x-ray has been reviewed with Dr. Esparza, and shows left tiny apical pneumothorax, scattered i nfiltrates and atelectasis. She received on dose of IV Lasix per CT surgery. She had no recurrence of arrhythmias, amiodarone drip had been discontinued. Patient was started on Lopressor at 12-1/2 mg twice daily. We dynamically she remains stable, she is in sinus mechanism with a controlled rate. Urine is reasonably controlled, patient still has right pleural/mediastinal chest tube in place, with 380 mL of serosanguineous output in the last 24 hours, left pleural chest tube with 270 mL of serosanguineous output. Today's lab work is been reviewed, and showed hemoglobin of 7.5, no leukocytosis, electrolytes and renal profile were relatively unremarkable. Patient is working on her incentive spirometer, her effort is suboptimal, she is only able to achieve 500 mL on the today. On 08/27/2018 patient seen in follow-up in intensive care unit, she is not on any oxygen today, no running IVs. She is sitting up in the recliner, in no acute distress, all chest tubes an indwelling lines have been discontinued, she has been walking 3 and 4 times a day with assistance of physical therapy, tolerating activity well, she is complaining of being very fatigued, and a frequent interruptions during the night, interfering with her ability to get adequate rest. Irritable on today's exam, but denies any acute distress, she is working on her incentive spirometer, achieving about 500-750 ML on the today, room air pulse ox is 97%, afebrile, hemodynamically stable, in sinus mechanism with a controlled rate on the monitor. Today's chest x-ray has been reviewed. And shows a trace left apical pneumothorax that has resolved, cardiomegaly, and pulmonary vascular congestion, and bibasilar atelectasis. Today's lab work has been reviewed, and shows white blood cell count of 11.5, hemoglobin of 8.5, sodium is 135, potassium is 5.2, chloride is 107, CO2 is 19, BUN is 32 and creatinine 0.90. Objective - Vital Signs Vital signs: Vital Signs Temp 98 F 08/27/18 08:00 Pulse 74 08/27/18 08:05 Resp 24 08/27/18 08:00 BP 130/60 08/27/18 08:00 Pulse Ox 97 08/27/18 08:00 Intake & Output 08/26/18 08/27/18 08/27/18 18:59 06:59 18:59 Intake Total 990 30 240 Output Total 313 300 0 Balance 677 -270 240 Weight 128.9 kg Intake: IV 390 Lactated Ringers 1,000 ml 360 @ 20 mls/hr IV .Q24H [facility] Rx#:[id number] pressure bag 30 Oral 600 30 240 Output: Chest Tube Drainage 110 Left Pleural 60 Right Pleural/Mediastinal 50 Urine 203 300 0 Other: Voiding Method Indwelling Catheter Indwelling Catheter # Voids 0 0 # Bowel Movements 1 ABP, PAP, CO, CI - Last Documented Arterial Blood Pressure 113/56 Pulmonary Artery Pressure 26/18 Cardiac Output 4.7 Cardiac Index 2.3 - Exam GENERAL EXAM:obese 67-year-old white female, on room air comfortable in no apparent distress. HEAD: Normocephalic/atraumatic. EYES: Normal reaction of pupils, equal size. Conjunctiva pink, sclera white. NOSE: Clear with pink turbinates. THROAT: No erythema or exudates. NECK: No masses, no JVD, no thyroid enlargement, no adenopathy. CHEST: No chest wall deformity. Symmetrical expansion. Midsternal incision is clean dry and intact, sternum is covered with surgical dressing, mediastinal, and right pleural, and left pleural chest tubes have been removed LUNGS: Equal air entry with no crackles, wheeze, rhonchi or dullness. CVS: Regular rate and rhythm, normal S1 and S2, no gallops, no murmurs, no rubs ABDOMEN: Soft, nontender. No hepatosplenomegaly, normal bowel sounds, no guarding or rigidity. EXTREMITIES: No clubbing, no edema, no cyanosis, 2+ pulses and upper and lower extremities. MUSCULOSKELETAL: Muscle strength and tone normal. SPINE: No scoliosis or deformity SKIN: No rashes CENTRAL NERVOUS SYSTEM: Alert, oriented 3 - Labs CBC & Chem 7: 08/27/18 05:29 08/27/18 05:29 Labs: Abnormal Lab Results - Last 24 Hours (Table) 08/26/18 08/26/18 08/26/18 Range/Units 12:17 17:07 20:29 WBC (3.8-10.6) k/uL RBC (3.80-5.40) m/uL Hgb (11.4-16.0) gm/dL Hct (34.0-46.0) % RDW (11.5-15.5) % Sodium (137-145) mmol/L Potassium (3.5-5.1) mmol/L Carbon Dioxide (22-30) mmol/L BUN (7-17) mg/dL Glucose (74-99) mg/dL POC Glucose (mg/dL) 119 H 180 H 143 H (75-99) mg/dL Calcium (8.4-10.2) mg/dL Ionized Calcium Saúl (4.5-5.3) mg/dL 08/27/18 08/27/18 08/27/18 Range/Units 05:29 05:29 07:11 WBC 11.5 H (3.8-10.6) k/uL RBC 3.01 L (3.80-5.40) m/uL Hgb 8.5 L (11.4-16.0) gm/dL Hct 26.9 L (34.0-46.0) % RDW 20.5 H (11.5-15.5) % Sodium 135 L (137-145) mmol/L Potassium 5.2 H (3.5-5.1) mmol/L Carbon Dioxide 19 L (22-30) mmol/L BUN 32 H (7-17) mg/dL Glucose 108 H (74-99) mg/dL POC Glucose (mg/dL) 131 H (75-99) mg/dL Calcium 11.2 H (8.4-10.2) mg/dL Ionized Calcium Saúl 6.2 H* (4.5-5.3) mg/dL Assessment and Plan Plan: Assessment: 1 symptomatic multivessel coronary artery disease, status post myocardial revascularization, postop day 4 2 acute blood loss anemia, and expected outcome of bypass surgery 3 Intraoperative V. fib requiring defibrillation 4 severe obstructive and restrictive lung disease 5 acute non-ST elevation myocardial infarction 6 benign essential hypertension 7 chronic atrial fibrillation 8 morbid obesity 9 carotid artery disease 10 chronic venous insufficiency 11 history of smoking, quit in March of 2018. 12 chronic anemia 13 peripheral vessel occlusive disease, involving both lower extremities. Plan: Patient remains stable, no acute distress, tolerating ambulation, she is working on incentive spirometer, today's chest x-ray has been reviewed, resolved left apical pneumothorax, bibasilar atelectasis. We'll continue to follow. Anticipate transfer out of the intensive care unit today. I performed a history & physical examination of the patient and discussed their management with my nurse practitioner, Evelyn Malone. I reviewed the nurse practitioner's note and agree with the documented findings and plan of care. Lung sounds are positive for diminished sounds with bibasilar crackles. The findings and the impression was discussed with the patient. I attest to the documentation by the nurse practitioner. Time with Patient: Less than 30
--- NOTE | 2018-08-27 09:15 | P.PN ---
Subjective Progress Note Date: 08/27/18 Principal diagnosis: Non-ST elevation myocardial infarction, symptomatic multivessel coronary artery disease with left main disease, acute on chronic diastolic heart failure, chron ic atrial fibrillation, history of coronary artery disease with previous stent placement 2003, hypertension, hyperlipidemia, morbid obesity, peripheral vascular disease, bilateral carotid artery stenosis with totally occluded right ICA and left ICA with 80% stenosis, previous tobacco dependence, severe restrictive lung disease with preoperative FEV1 47% of predicted, chronic normocytic anemia, and osteoarthritis. POD #4 off-pump coronary artery bypass grafting 3 with sequential left internal mammary artery to the left anterior descending artery and diagonal, reverse saphenous vein graft to the obtuse marginal artery, ligation of the left atrial appendage with 35 mm AtriClip. Endovascular vein harvest of the left lower extremity from the knee to the groin level. Intraoperative transesophageal echocardiogram by anesthesia. Intraoperative and postoperative acute blood loss, unexpected, surgery given patient's preoperative anemia. Postoperative thrombocytopenia, expected outcome of surgery. Intraoperative V. fib requiring one shock with conversion to sinus rhythm, unexpected but potential outcome. Postoperative controlled atrial fibrillation, expected outcome given her chronic atrial fibrillation preoperatively The patient is currently sitting up in the recliner in no acute distress in the intensive care unit. States pain is well controlled on current medication regimen and denies significant shortness of breath. Currently in controlled atrial fibrillation and hemodynamically stable on no inotropes or pressors. She is attempting her incentive spirometry, effort better than yesterday. She ambulated in the hallway yesterday. She has no new complaints. Objective - Vital Signs Vital signs: Vital Signs Temp 98 F 08/27/18 08:00 Pulse 74 08/27/18 08:05 Resp 24 08/27/18 08:00 BP 130/60 08/27/18 08:00 Pulse Ox 97 08/27/18 08:00 Intake & Output 08/26/18 08/27/18 08/27/18 18:59 06:59 18:59 Intake Total 990 30 240 Output Total 313 300 0 Balance 677 -270 240 Weight 128.9 kg Intake: IV 390 Lactated Ringers 1,000 ml 360 @ 20 mls/hr IV .Q24H [facility] Rx#:[id number] pressure bag 30 Oral 600 30 240 Output: Chest Tube Drainage 110 Left Pleural 60 Right Pleural/Mediastinal 50 Urine 203 300 0 Other: Voiding Method Indwelling Catheter Indwelling Catheter # Voids 0 0 # Bowel Movements 1 ABP, PAP, CO, CI - Last Documented Arterial Blood Pressure 113/56 Pulmonary Artery Pressure 26/18 Cardiac Output 4.7 Cardiac Index 2.3 - Constitutional General appearance: Present: cooperative, morbidly obese, no acute distress - Respiratory Details: Lungs sounds diminished bilaterally. Respirations even, nonlabored. Currently on room air with oxygen saturation 96%. Able to achieve 750 mL on her incentive spirometry. Strong cough. - Cardiovascular Details: S1, S2 present. Irregular rate and rhythm, controlled atrial fibrillation on telemetry. Sternum stable. Palpable peripheral pulses bilaterally. Trace generalized edema present. Heart hugger in place with patient demonstrating appropriate use. Bilateral Craig wraps, SCDs present. - Gastrointestinal Gastrointestinal Comment(s): Abdomen soft, nontender, nondistended, obese. Active bowel sounds present 4 quadrants. Tolerating diet. Positive bowel movement. - Genitourinary Genitourinary Comment(s): Sotelo discontinued yesterday. Patient has voided 100-200 mL at a time. - Integumentary Integumentary Comment(s): Skin is warm and dry with evidence of good perfusion. Anterior chest incision well approximated and covered with dry intact dressing. Left lower extremity EVH site well approximated. - Neurologic Neurologic: Present: CNII-XII intact - Musculoskeletal Musculoskeletal: Present: generalized weakness, strength equal bilaterally - Psychiatric Psychiatric: Present: A&O x's 3, appropriate affect, intact judgment & insight - Allied health notes Allied health notes reviewed: nursing - Labs CBC & Chem 7: 08/27/18 05:29 08/27/18 05:29 Labs: Abnormal Lab Results - Last 24 Hours (Table) 08/26/18 08/26/18 08/26/18 Range/Units 12:17 17:07 20:29 WBC (3.8-10.6) k/uL RBC (3.80-5.40) m/uL Hgb (11.4-16.0) gm/dL Hct (34.0-46.0) % RDW (11.5-15.5) % Sodium (137-145) mmol/L Potassium (3.5-5.1) mmol/L Carbon Dioxide (22-30) mmol/L BUN (7-17) mg/dL Glucose (74-99) mg/dL POC Glucose (mg/dL) 119 H 180 H 143 H (75-99) mg/dL Calcium (8.4-10.2) mg/dL Ionized Calcium Saúl (4.5-5.3) mg/dL 08/27/18 08/27/18 08/27/18 Range/Units 05:29 05:29 07:11 WBC 11.5 H (3.8-10.6) k/uL RBC 3.01 L (3.80-5.40) m/uL Hgb 8.5 L (11.4-16.0) gm/dL Hct 26.9 L (34.0-46.0) % RDW 20.5 H (11.5-15.5) % Sodium 135 L (137-145) mmol/L Potassium 5.2 H (3.5-5.1) mmol/L Carbon Dioxide 19 L (22-30) mmol/L BUN 32 H (7-17) mg/dL Glucose 108 H (74-99) mg/dL POC Glucose (mg/dL) 131 H (75-99) mg/dL Calcium 11.2 H (8.4-10.2) mg/dL Ionized Calcium Saúl 6.2 H* (4.5-5.3) mg/dL - Imaging and Cardiology Chest x-ray: report reviewed, image reviewed Assessment and Plan Assessment: 1. Non-ST elevation myocardial infarction 2. Symptomatic multivessel coronary artery disease with left main disease, status post off-pump coronary artery bypass surgery 3. Acute on chronic diastolic heart failure 4. Chronic atrial fibrillation on Eliquis at home for anticoagulation, status post left atrial appendage ligation 5. History of coronary artery disease with previous stent placement in 2003 6. Hypertension 7. Hyperlipidemia 8. Morbid obesity 9. Peripheral vascular disease 10. Bilateral carotid artery stenosis with totally occluded right ICA and a lef t ICA with 80% stenosis 11. Previous tobacco dependence 12. Severe restrictive lung disease with preoperative FEV1 47% of predicted 13. Chronic normocytic anemia, with intraoperative and postoperative acute blood loss anemia, status post packed red blood cell transfusion 14. Osteoarthritis 15. Postoperative thrombocytopenia, expected 16. Intraoperative V. fib requiring one shock with conversion to sinus rhythm, unexpected 17. Postoperative controlled atrial fibrillation, expected Plan: 1. Continue to maximize medical therapy with low-dose aspirin, statin, beta louann therapy. Will increase beta louann therapy as tolerated. 2. Continue amiodarone. Will re-start Eliquis. 2. Encourage incentive spirometry use 10 times every hour while awake. 3. Increase activity, ambulate in hallway as tolerated. PT/OT/cardiac rehab following. 4. Bronchodilators per pulmonology. 5. Will monitor daily labs and x-rays. Electrolyte replacement per protocol. No further transfusions at this point. Continue Iron/vitamin C. 6. Encourage continued smoking cessation. 7. GI/Protonix, DVT prophylaxis. 8. Insulin management per primary care service. 9. Pain control with current medication regimen. 10. Will place transfer orders for 3 S. cardiac stepdown unit. May transfer when bed available. 11. Anticipate discharge in the next 24-48 hours to [facility] subacute rehab. Social work updated for insurance authorization. 12. More recommendations to follow based on patient's clinical course. Time with Patient: Greater than 30
[2018-08-27] MEDS: APIXABAN 5 MG TAB PO SCH ×2 (09:51→21:01)
--- NOTE | 2018-08-27 11:33 | PN ---
PROGRESS NOTE Patient with known coronary artery disease, status post CABG. Patient this morning appears a little tired and sleepy. Has had episodes of atrial fibrillation, currently on Eliquis 5 b.i.d., amiodarone and aspirin of 81, along with Lipitor, Plavix, Lopressor. On exam, comfortable at rest. Heart rate is 70 beats per minute. Blood pressure is 104/65, respiratory rate is 18, O2 sat is 97% on room air. There is no jugular venous distention. Chest exam reveals diminished air entry at the bases. Heart exam reveals first and second heart sounds. No gallop. No murmur. Abdomen is soft, nontender. Examination of the extremities did not reveal any edema. Peripheral pulses are felt. LABS: Labs show a hemoglobin of 8.5, creatinine is 0.9, potassium is 5.2. ASSESSMENT: 1. Coronary artery disease, status post coronary artery bypass grafting. 2. Postop atrial fibrillation. 3. Morbid obesity. 4. Hyperkalemia. PLAN: Patient is on amiodarone, Eliquis, and all the appropriate medications. We will watch her serum potassium. She is not receiving any supplements. She is not on an RASHAAD inhibitor nor is she on Aldactone. MMODL / IJN: [id number] /
[2018-08-27 11:55] LABS: Glucose,Whole Blood 119 mg/dL (75-99)
[2018-08-27 15:00] VITALS: BMI 55.5
[2018-08-27 17:40] LABS: Glucose,Whole Blood 132 mg/dL (75-99)
--- NOTE | 2018-08-27 20:11 | PN ---
PROGRESS NOTE DATE OF SERVICE: 08/27/2018 PRESENTING COMPLAINT: Coronary artery bypass. INTERVAL HISTORY: Patient is status post coronary artery bypass. Chest tubes have been taken out. Breathing is better. Did walk in the hallway. Did tolerate some diet. Has been in atrial fibrillation. REVIEW OF SYSTEMS: Done for constitutional, cardiovascular, GI, pulmonary; relevant findings as above. CURRENT MEDICATIONS: Reviewed. PHYSICAL EXAMINATION: Temperature 98.1, pulse 55, respiration 21, blood pressure 118/61, pulse ox 98% on room air. GENERAL APPEARANCE: Sitting up in a chair, awake. EYES: Pupils equal. Conjunctivae pale. NECK: JVD unable to assess. Mass not palpable. RESPIRATORY: Effort increased. LUNGS: Decreased breath sounds. CARDIOVASCULAR: Heart sounds muffled. Some edema. ABDOMEN: Soft, non-tender. Liver and spleen not palpable. PSYCHIATRY: Alert and oriented x3. Mood and affect normal. INVESTIGATIONS: White count 11.5, hemoglobin 8.5, platelets 174. Potassium 5.2, BUN 32, creatinine 0.90. Ionized calcium is 6.2. ASSESSMENT: 1. Coronary artery bypass in a patient with known coronary artery disease. 2. Acute on chronic congestive heart failure exacerbation from diastolic/systolic dysfunction, ejection fraction 35% to 40%, from underlying coronary artery disease, stable. 3. Hypertensive heart disease. 4. Paroxysmal atrial flutter/fibrillation, currently in sinus rhythm. 5. Essential hypertension. 6. Primary osteoarthritis. 7. Complete occlusion of right internal carotid artery and 80% occlusion of the left internal carotid artery. 8. Acute [id number] myocardial infarction. 9. Severe chronic obstructive pulmonary disease. 10.Peripheral artery disease. 11.Chronic venous insufficiency of lower extremity. 12.Dilutional thrombocytopenia. 13.Acute postoperative blood-loss anemia as expected from surgery. 14.Hypercalcemia in a patient with known hyperparathyroidism. PLAN: Continue current medication and treatment plan. The patient's Sensipar dose was doubled yesterday. We will follow the patient's ionized calcium. Otherwise, patient is clinically doing well. MMODL / IJN: [id number] /
[2018-08-27] MEDS: SENNOSIDES-DOCUSATE SODIUM 1 EACH TAB PO SCH (21:02)
[2018-08-27 21:31] LABS: Glucose,Whole Blood 115 mg/dL (75-99)
[2018-08-28] MEDS: KETOROLAC 30 MG/ML 1 ML VIAL IVP SCH ×2 (00:19→07:39)
[2018-08-28 06:08] LABS: Anisocytosis Moderate; HGB 7.9 gm/dL (11.4-16.0); Hypochromasia Moderate; MCH 28.3 pg (25.0-35.0); MCHC 31.6 g/dL (31.0-37.0); MCV 89.7 fL (80.0-100.0); Mean Platelet Volume 9.6; Platelet Count 181 k/uL (150-450); Poikilocytosis Slight; RBC 2.78 m/uL (3.80-5.40); RDW 20.5 % (11.5-15.5); WBC 9.5 k/uL (3.8-10.6)
[2018-08-28 06:27] LABS: Calcium 10.8 mg/dL (8.4-10.2); Magnesium 2.1 mg/dL (1.6-2.3); Potassium 5.3 mmol/L (3.5-5.1)
[2018-08-28 07:01] LABS: Ionized Calcium 6.2 mg/dL (4.5-5.3)
[2018-08-28] MEDS: IPRATROPIUM-ALBUTEROL 3 ML NEB INHALATION SCH (07:03)
[2018-08-28] MEDS: INSULIN ASPART (NovoLOG) 100 UNIT/ML VIAL SQ SCH ×2 (07:18→12:09)
[2018-08-28] MEDS: FERROUS SULFATE 325 MG TAB PO SCH (07:23)
[2018-08-28] MEDS: ASCORBIC ACID 500 MG TAB PO SCH (07:23)
[2018-08-28] MEDS: PANTOPRAZOLE 40 MG TABLET PO SCH (07:24)
[2018-08-28 07:31] LABS: Glucose,Whole Blood 97 mg/dL (75-99)
--- NOTE | 2018-08-28 08:24 | XR ---
EXAMINATION TYPE: XR chest 2V DATE OF EXAM: 08/28/2018 COMPARISON: 08/27/2018 INDICATION: Post cardiac surgery TECHNIQUE: Frontal and lateral views of the chest are obtained. FINDINGS: The heart size is enlarged. The pulmonary vasculature is normal. Bibasilar infiltrates are present. Small pleural effusions are present. Poststernotomy changes are pr esent. EKG leads overlie the chest. IMPRESSION: 1. Bibasilar infiltrates with small pleural effusions. Continued follow-up is recommended.
[2018-08-28] MEDS: AMIODARONE 200 MG TAB PO SCH (08:39)
[2018-08-28] MEDS: CINACALCET 30 MG TAB PO SCH (08:39)
[2018-08-28] MEDS: METOPROLOL TARTRATE 12.5 MG TAB PO SCH (08:39)
[2018-08-28] MEDS: SODIUM BICARBONATE TAB 650 MG TAB PO SCH (08:40)
[2018-08-28] MEDS: ASPIRIN 81 MG PO SCH (08:40)
[2018-08-28] MEDS: APIXABAN 5 MG TAB PO SCH (08:40)
[2018-08-28] MEDS: CLOPIDOGREL 75 MG TAB PO SCH (08:40)
[2018-08-28] MEDS: ATORVASTATIN 40 MG TAB PO SCH (08:40)
--- NOTE | 2018-08-28 09:52 | P.PN ---
Subjective Progress Note Date: 08/28/18 Principal diagnosis: Multivessel coronary artery disease, acute non-ST segment elevation myocardial infarction. On 08/23/2018 patient seen in follow-up in the intensive care unit, she underwent myocardial revascularization today by Dr. Palm, off-pump three- vessel coronary artery bypass, with sequential MURDOCK to LAD and the diagonal saphenous vein graft to obtuse marginal with ligation of left atrial appendage with Atri-clip. Patient did experience a run of V. fib Intra-Op after closing of the chest, she was defibrillated once, and converted to sinus rhythm. Was started on amiodarone drip per protocol. Patient was then noted to be bradycardic, requiring dopamine drip, postop hemoglobin was 7.2, intraoperatively her hemoglobin was as low as 5. Preoperative hemoglobin was 8.7. Patient received a total of 4 units of packed red blood cells. She was given albumin. Did have issues with low cardiac output and indices, chair improving with the blood transfusions and volume resuscitation. Most currently her cardiac output is 3.5, and cardiac index is 1.9. PA pressures of 33/26, blood pressure is 108/41, she was hypothermic with a temperature of 93.9, and she is being rewarmed, and blood transfusion is being warmed. He is intubated, on mechanical ventilator, with current vent settings assist control mode of ventilation, with a rate of 12, tidal volume 400, FiO2 100% and PEEP of 10, postop blood gases were obtained, and showed pO2 of 167, pCO2 of 51, and pH of 7.22. Ventilator adjustments were made, rate was admitted to 16, tidal volume was increased to 450. Repeat blood gas was obtained, and showed improvement, with pO2 of 158, pCO2 44, and pH of 7.30. Other IVs include lactated Ringer's at a rate of 50 ML per hour, nitroglycerin drip is currently at 5 mics per minute, insulin drip is at 6 units per hour, amiodarone drip is currently at 0.5 mg per hour, Diprivan and is at 5 mics per kilo per minute, dopamine is currently at 3 mics per kilo per minute. Postop chest x-ray has been reviewed by Dr. Wheeler, and showed ET tube, OG tube, chest tubes, [place] catheter all appropriately placed, no residual pneumothoraces, basilar atelectasis. Patient has left pleural and right pleural/mediastinal chest tubes in place, with small amount of sanguinous drainage, ID season, and patient is nonoliguric. Sternal incision is clean dry and intact, chest tube sites are clean dry and intact. On 08/26/2018 seen in follow-up in intensive care unit, she is sitting up in the recliner, in no acute distress, she remains on oxygen, currently congested 1.5 L per nasal cannula, pulse ox is 96%, she is afebrile, hemodynamically stable, IV lactated Ringer's at a rate of 30 ML per hour, today is postop day 3 status post three-vessel off-pump coronary artery bypass surgery. His chest x-ray has been reviewed with Dr. Esparza, and shows left tiny apical pneumothorax, scattered infiltrates and atelectasis. She received on dose of IV Lasix per CT surgery. She had no recurrence of arrhythmias, amiodarone drip had been discontinued. Patient was started on Lopressor at 12-1/2 mg twice daily. We dynamically she remains stable, she is in sinus mechanism with a controlled rate. Urine is reasonably controlled, patient still has right pleural/mediastinal chest tube in place, with 380 mL of serosanguineous output in the last 24 hours, left pleural chest tube with 270 mL of serosanguineous output. Today's lab work is been reviewed, and showed hemoglobin of 7.5, no leukocytosis, electrolytes and renal profile were relatively unremarkable. Patient is working on her incentive spirometer, her effort is suboptimal, she is only able to achieve 500 mL on the today. On 08/27/2018 patient seen in follow-up in intensive care unit, she is not on any oxygen today, no running IVs. She is sitting up in the recliner, in no acute distress, all chest tubes an indwelling lines have been discontinued, she has been walking 3 and 4 times a day with assistance of physical therapy, tolerating activity well, she is complaining of being very fatigued, and a frequent interruptions during the night, interfering with her ability to get adequate rest. Irritable on today's exam, but denies any acute distress, she is working on her incentive spirometer, achieving about 500-750 ML on the today, room air pulse ox is 97%, afebrile, hemodynamically stable, in sinus mechanism with a controlled rate on the monitor. Today's chest x-ray has been reviewed. And shows a trace left apical pneumothorax that has resolved, cardiomegaly, and pulmonary vascular congestion, and bibasilar atelectasis. Today's lab work has been reviewed, and shows white blood cell count of 11.5, hemoglobin of 8.5, sodium is 135, potassium is 5.2, chloride is 107, CO2 is 19, BUN is 32 and creatinine 0.90. She is seen today 08/28/2017 in follow-up in the intensive care unit. She is currently sitting up in a chair at the bedside. Awake and alert in no acute distress. She is maintaining good O2 saturations in the upper 90s on room air. She's been afebrile. Remains in atrial fibrillation, controlled ventricular response. Amiodarone 400 mg twice a day. Anticoagulated with Eliquis. White count 9.5. Hemoglobin 7.9. Creatinine 1.03. Chest x-ray reveals bibasilar i nfiltrates with small pleural effusions. He is to transfer to [facility] today for subacute rehabilitation Objective - Vital Signs Vital signs: Vital Signs Temp 97.7 F 08/28/18 08:00 Pulse 70 08/28/18 08:00 Resp 18 08/28/18 08:00 BP 141/56 08/28/18 08:00 Pulse Ox 98 08/28/18 08:00 Intake & Output 08/27/18 08/28/18 08/28/18 18:59 06:59 18:59 Intake Total 720 240 250 Output Total 0 600 Balance 720 -360 250 Weight 128.9 kg Intake: Oral 720 240 250 Output: Urine 0 600 Other: Voiding Method Bedside Commode Bedside Commode Bedside Commode # Voids 1 1 # Bowel Movements 1 ABP, PAP, CO, CI - Last Documented Arterial Blood Pressure 113/56 Pulmonary Artery Pressure 26/18 Cardiac Output 4.7 Cardiac Index 2.3 - Exam GENERAL EXAM: A very pleasant 67-year-old, on room air comfortable in no apparent distress. HEAD: Normocephalic/atraumatic. EYES: Normal reaction of pupils, equal size. Conjunctiva pink, sclera white. NOSE: Clear with pink turbinates. THROAT: No erythema or exudates. NECK: No masses, no JVD, no thyroid enlargement, no adenopathy. CHEST: No chest wall deformity. Symmetrical expansion. Midsternal incision is clean dry and intact, sternum is covered with surgical dressing, chest tubes have been removed LUNGS: Equal air entry with no crackles, wheeze, rhonchi or dullness. CVS: Regular rate and rhythm, normal S1 and S2, no gallops, no murmurs, no rubs ABDOMEN: Soft, nontender. No hepatosplenomegaly, normal bowel sounds, no guarding or rigidity. EXTREMITIES: No clubbing, no edema, no cyanosis, 2+ pulses and upper and lower extremities. MUSCULOSKELETAL: Muscle strength and tone normal. SPINE: No scoliosis or deformity SKIN: No rashes CENTRAL NERVOUS SYSTEM: Alert, oriented 3 - Labs CBC & Chem 7: 08/28/18 05:28 08/28/18 05:28 Labs: Abnormal Lab Results - Last 24 Hours (Table) 08/27/18 08/27/18 08/27/18 Range/Units 11:53 16:50 20:55 RBC (3.80-5.40) m/uL Hgb (11.4-16.0) gm/dL Hct (34.0-46.0) % RDW (11.5-15.5) % Sodium (137-145) mmol/L Potassium (3.5-5.1) mmol/L BUN (7-17) mg/dL POC Glucose (mg/dL) 119 H 132 H 115 H (75-99) mg/dL Calcium (8.4-10.2) mg/dL Ionized Calcium Saúl (4.5-5.3) mg/dL 08/28/18 08/28/18 Range/Units 05:28 05:28 RBC 2.78 L (3.80-5.40) m/uL Hgb 7.9 L (11.4-16.0) gm/dL Hct 25.0 L (34.0-46.0) % RDW 20.5 H (11.5-15.5) % Sodium 136 L (137-145) mmol/L Potassium 5.3 H (3.5-5.1) mmol/L BUN 36 H (7-17) mg/dL POC Glucose (mg/dL) (75-99) mg/dL Calcium 10.8 H (8.4-10.2) mg/dL Ionized Calcium Saúl 6.2 H* (4.5-5.3) mg/dL Assessment and Plan Assessment: Assessment: 1 symptomatic multivessel coronary artery disease, status post myocardial revascularization, postop day 4 2 acute blood loss anemia, and expected outcome of bypass surgery 3 Intraoperative V. fib requiring defibrillation 4 severe obstructive and restrictive lung disease 5 acute non-ST elevation myocardial infarction 6 benign essential hypertension 7 chronic atrial fibrillation 8 morbid obesity 9 carotid artery disease 10 chronic venous insufficiency 11 history of smoking, quit in March of 2018. 12 chronic anemia 13 peripheral vessel occlusive disease, involving both lower extremities. Plan: The patient was seen and evaluated by Dr. Rueda. Chest x-ray and labs were reviewed. Continues with basilar atelectasis. She is again encouraged regarding increased use of the incentive spirometer and cough and deep breathing exercises. Increase her activity as tolerated. The plan is for transfer to extended care facility for subacute rehabilitation once a bed becomes available. Continue the current treatment plan. I, the cosigning physician, performed a history & physical examination of the patient. Lungs sounds crackles in the bilateral posterior bases. Maintaining good O2 saturations in the 90s on room air. I discussed the assessment and plan of care with my nurse practitioner, Jessica Trevino. I attest to the above note as dictated by her.
--- NOTE | 2018-08-28 11:15 | P.PN ---
Subjective Progress Note Date: 08/28/18 Principal diagnosis: Non-ST elevation myocardial infarction, symptomatic multivessel coronary artery disease with left main disease, acute on chronic diastolic heart failure, chron ic atrial fibrillation, history of coronary artery disease with previous stent placement 2003, hypertension, hyperlipidemia, morbid obesity, peripheral vascular disease, bilateral carotid artery stenosis with totally occluded right ICA and left ICA with 80% stenosis, previous tobacco dependence, severe restrictive lung disease with preoperative FEV1 47% of predicted, chronic normocytic anemia, and osteoarthritis. POD #5 off-pump coronary artery bypass grafting 3 with sequential left internal mammary artery to the left anterior descending artery and diagonal, reverse saphenous vein graft to the obtuse marginal artery, ligation of the left atrial appendage with 35 mm AtriClip. Endovascular vein harvest of the left lower extremity from the knee to the groin level. Intraoperative transesophageal echocardiogram by anesthesia. Intraoperative and postoperative acute blood loss, unexpected, surgery given patient's preoperative anemia. Postoperative thrombocytopenia, expected outcome of surgery. Intraoperative V. fib requiring one shock with conversion to sinus rhythm, unexpected but potential outcome. Postoperative controlled atrial fibrillation, expected outcome given her chronic atrial fibrillation preoperatively The patient is currently sitting up in the recliner in no acute distress in the intensive care unit, transfer orders were placed yesterday for cardiac stepdown unit but there is no bed availability. States pain is well controlled on current medication regimen and denies significant shortness of breath. Currently in controlled atrial fibrillation and hemodynamically stable. She is attempting her incentive spirometry, effort better every day. She ambulated in the hallway yesterday. She has no new complaints. Objective - Vital Signs Vital signs: Vital Signs Temp 97.7 F 08/28/18 08:00 Pulse 70 08/28/18 08:00 Resp 18 08/28/18 08:00 BP 141/56 08/28/18 08:00 Pulse Ox 98 08/28/18 08:00 Intake & Output 08/27/18 08/28/18 08/28/18 18:59 06:59 18:59 Intake Total 720 240 250 Output Total 0 600 Balance 720 -360 250 Weight 128.9 kg Intake: Oral 720 240 250 Output: Urine 0 600 Other: Voiding Method Bedside Commode Bedside Commode Bedside Commode # Voids 1 1 # Bowel Movements 1 ABP, PAP, CO, CI - Last Documented Arterial Blood Pressure 113/56 Pulmonary Artery Pressure 26/18 Cardiac Output 4.7 Cardiac Index 2.3 - Constitutional General appearance: Present: cooperative, morbidly obese, no acute distress - Respiratory Details: Lungs sounds diminished bilaterally. Respirations even, nonlabored. Currently on room air with oxygen saturation 96%. Able to achieve 1000 mL on her incentive spirometry. Strong cough. - Cardiovascular Details: S1, S2 present. Irregular rate and rhythm, controlled atrial fibrillation on telemetry. Sternum stable. Palpable peripheral pulses bilaterally. Trace generalized edema present. Heart hugger in place with patient demonstrating appropriate use. Bilateral Craig wraps, SCDs present. - Gastrointestinal Gastrointestinal Comment(s): Abdomen soft, nontender, nondistended, obese. Active bowel sounds present 4 quadrants. Tolerating diet. Positive bowel movement. - Genitourinary Genitourinary Comment(s): Patient continues to void, output last night 600 mL. - Integumentary Integumentary Comment(s): Skin is warm and dry with evidence of good perfusion. Anterior chest incision well approximated and covered with dry intact dressing. Left lower extremity EVH site well approximated. - Neurologic Neurologic: Present: CNII-XII intact - Musculoskeletal Musculoskeletal: Present: generalized weakness, strength equal bilaterally - Psychiatric Psychiatric: Present: A&O x's 3, appropriate affect, intact judgment & insight - Allied health notes Allied health notes reviewed: nursing - Labs CBC & Chem 7: 08/28/18 05:28 08/28/18 05:28 Labs: Abnormal Lab Results - Last 24 Hours (Table) 08/27/18 08/27/18 08/27/18 Range/Units 11:53 16:50 20:55 RBC (3.80-5.40) m/uL Hgb (11.4-16.0) gm/dL Hct (34.0-46.0) % RDW (11.5-15.5) % Sodium (137-145) mmol/L Potassium (3.5-5.1) mmol/L BUN (7-17) mg/dL POC Glucose (mg/dL) 119 H 132 H 115 H (75-99) mg/dL Calcium (8.4-10.2) mg/dL Ionized Calcium Saúl (4.5-5.3) mg/dL 08/28/18 08/28/18 Range/Units 05:28 05:28 RBC 2.78 L (3.80-5.40) m/uL Hgb 7.9 L (11.4-16.0) gm/dL Hct 25.0 L (34.0-46.0) % RDW 20.5 H (11.5-15.5) % Sodium 136 L (137-145) mmol/L Potassium 5.3 H (3.5-5.1) mmol/L BUN 36 H (7-17) mg/dL POC Glucose (mg/dL) (75-99) mg/dL Calcium 10.8 H (8.4-10.2) mg/dL Ionized Calcium Saúl 6.2 H* (4.5-5.3) mg/dL - Imaging and Cardiology Chest x-ray: report reviewed, image reviewed Assessment and Plan Assessment: 1. Non-ST elevation myocardial infarction 2. Symptomatic multivessel coronary artery disease with left main disease, status post off-pump coronary artery bypass surgery 3. Acute on chronic diastolic heart failure 4. Chronic atrial fibrillation on Eliquis at home for anticoagulation, status post left atrial appendage ligation 5. History of coronary artery disease with previous stent placement in 2003 6. Hypertension 7. Hyperlipidemia 8. Morbid obesity 9. Peripheral vascular disease 10. Bilateral carotid artery stenosis with totally occluded right ICA and a left ICA with 80% stenosis 11. Previous tobacco dependence 12. Severe restrictive lung disease with preoperative FEV1 47% of predicted 13. Chronic normocytic anemia, with intraoperative and postoperative acute blood loss anemia, status post packed red blood cell transfusion 14. Osteoarthritis 15. Postoperative thrombocytopenia, expected 16. Intraoperative V. fib requiring one shock with conversion to sinus rhythm, unexpected 17. Postoperative controlled atrial fibrillation, expected Plan: 1. Continue to maximize medical therapy with low-dose aspirin, statin, beta b locker therapy. Will increase beta louann therapy as tolerated. 2. Continue amiodarone. Continue Eliquis for anticoagulation. 2. Encourage incentive spirometry use 10 times every hour while awake. 3. Increase activity, ambulate in hallway as tolerated. PT/OT/cardiac rehab following. 4. Bronchodilators per pulmonology. 5. Will monitor daily labs and x-rays. Electrolyte replacement per protocol. No further transfusions at this point. Continue Iron/vitamin C. 6. Encourage continued smoking cessation. 7. GI/Protonix, DVT prophylaxis. 8. Insulin management per primary care service. 9. Pain control with current medication regimen. 10. Anticipate discharge this afternoon to [facility] subacute rehab. Social work updated. 11. More recommendations to follow. Time with Patient: Greater than 30
--- NOTE | 2018-08-28 11:38 | PN ---
PROGRESS NOTE Ekaterina is a 67-year-old lady who was admitted to hospital following bypass surgery. She is making steady progress had episodes of A. fib. Currently on aspirin, Lipitor, Eliquis, Plavix, Lopressor 12.5 b.i.d., and Protonix. On exam, vital signs are stable. Chest exam reveals diminished air entry at the bases. Heart exam reveals first and second heart sounds, irregular rhythm. Examination of the extremities reveals mild edema. Peripheral pulses are felt. Labs show a hemoglobin of 7.9, creatinine is 1, potassium is 5.3. ASSESSMENT: 1. Coronary artery disease, status post coronary artery bypass grafting. 2. Respiratory insufficiency. 3. Postoperative atrial fibrillation. The patient will continue with current medications. I think she is going to be transferred to a rehab place. KIARA / ANITAN: [id number] /
[2018-08-28 12:20] VITALS: BP 121/50; PULSE 69; RESP 20; TEMP 97.6
[2018-08-28 12:32] LABS: Glucose,Whole Blood 128 mg/dL (75-99)
[2018-08-28] MEDS ORDERED: FUROSEMIDE 10 MG/ML 2 ML VIAL IV STA (12:34)
--- NOTE | 2018-08-28 13:40 | P.DS ---
Providers Date of admission: 08/17/18 14:31 Expected date of discharge: 08/28/18 Attending physician: Jones Palm Consults: 08/15/18 18:51 Consult Physician Routine Consulting Provider: Toney Hickey Consult Reason/Comments: CHF, elevated troponin Do you want consulting provider notified?: Yes 08/17/18 10:15 Consult Physician Stat Consulting Provider: Sukumar Torres Consult Reason/Comments: Left main disease Do you want consulting provider notified?: Yes 08/17/18 11:56 Consult Physician Routine Consulting Provider: Vasile Banerjee Consult Reason/Comments: ICU management Do you want consulting provider notified?: Yes 08/19/18 17:19 Consult to Anesthesia Routine Consulting Provider: Anesthesia,Services Consult Reason/Comments: Cardiac Surgery Pre-Op 08/23/18 12:28 Consult Physician Routine Consulting Provider: Christopher Almaraz Consult Reason/Comments: medical management Do you want consulting provider notified?: Already Contacted Primary care physician: Roberto Berry [facility] Course: FINAL DIAGNOSIS: 1. Non-ST elevation myocardial infarction 2. Symptomatic multivessel coronary artery disease with left main disease 3. Acute on chronic diastolic heart failure 4. Chronic atrial fibrillation on Eliquis at home for anticoagulation 5. History of coronary artery disease with previous stent placement in 2003 6. Hypertension 7. Hyperlipidemia 8. Morbid obesity 9. Peripheral vascular disease 10. Bilateral carotid artery stenosis with totally occluded right ICA and left ICA with 80% stenosis 11. Previous tobacco dependence 12. Severe restrictive lung disease with preoperative FEV1 47% of predicted 13. Chronic normocytic anemia, with intraoperative and postoperative acute blood loss anemia, status post packed red blood cell transfusion 14. Osteoarthritis 15. Postoperative thrombocytopenia 16. Intraoperative V. fib requiring 1 shock with conversion to normal sinus rhythm 17. Postoperative controlled atrial fibrillation 18. Hypercalcemia with known hyperparathyroidism PRINCIPAL PROCEDURE: 1. Left heart catheterization 2. Off-pump coronary artery bypass grafting 3 with sequential left internal mammary artery to the left anterior descending artery and diagonal, reverse saphenous vein graft to the obtuse marginal artery 3. Ligation of the left atrial appendage with a 35 mm AtriClip 4. Endovascular vein harvest of the left lower extremity from the knee to the groin level 5. Intraoperative transesophageal echocardiogram performed by anesthesia HISTORY OF PRESENT ILLNESS: This is a 67-year-old female patient who follows with Dr Olivia on an outpatient basis. She was recently admitted to the hospital in July 2018 after having episodes of lightheadedness, progressive shortness of breath, and generalized weakness. During that admission she did have positive troponins. Echocardiogram was completed at that time demonstrating low to normal left ventricular systolic function with ejection f raction 50-55%, mild mitral regurgitation, and mild tricuspid regurgitation. She was offered heart catheterization but refused at that time and opted for medical therapy and was subsequently discharged home to follow up on an outpatient basis with cardiology. She did not quite make it to her cardiology appointment as she presented to the emergency room 08/15/2018 with complaints of progressive dyspnea and increase in lower extremity edema. She denied any chest pain at that time, as well as dizziness, syncope, nausea, vomiting, fever, or chills. EKG was completed demonstrating controlled atrial fibrillation. Again her troponins were mildly elevated, cardiology was consulted, Dr. Dr. Jackson offered her a heart catheterization which she agreed to this time. The catheterization demonstrated 80% stenosis to her left main coronary artery, 70% stenosis to her diagonal coronary artery, 80% stenosis to her proximal circumflex coronary artery, and a totally occluded right coronary artery with collaterals from the left system. Consultation was placed for Dr. Torres from cardiothoracic surgery. She was recommended to undergo coronary artery bypass graft surgery. The usual perioperative course was discussed in detail with the patient and her family, all risks and benefits were explained, all questions were answered, and consent was obtained to proceed with surgery. The patient was kept inpatient due to the nature of her disease process. HOSPITAL COURSE: The patient was taken to the preoperative area on 08/23/2018, prepared in the usual fashion, and subsequently taken to the operating room where Dr. Palm performed off-pump coronary artery bypass grafting 3 with sequential left internal mammary artery to the left anterior descending artery and diagonal, reverse saphenous vein graft to the obtuse marginal artery, ligation of the left atrial appendage with a 35 mm AtriClip, endovascular vein harvest of the left lower extremity from the knee to the groin level, intra operative transesophageal echocardiogram was performed by anesthesia. Upon completion of surgery the patient was transferred to the cardiovascular intensive care unit where she was recovered, monitored hemodynamically, and where she progressed to cardiac rehabilitation phase 1. She was extubated, all lines, tubes, and drips were discontinued when appropriate, and transfer orders were placed for 3 S. cardiac stepdown unit, however there was no bed availability and the patient remained on ICU as a stepdown patient until discharge. Her oxygen was titrated down, she continued to work with physical and occupational therapy, she was tolerating oral diet, her pain was controlled, and she was ready to be discharged to [facility] for subacute rehab on postoperative day #5. She received written and verbal instruction regarding her medications, activity restrictions, signs and symptoms requiring physician notification, and follow-up appointments. Craig Inhibitor was not prescribed at discharge as patient's creatinine and potassium were slightly elevated, will re- evaluate depending on post-discharge labs. COMPLICATIONS: The patient experienced postoperative acute blood loss anemia requiring blood transfusion, and controlled atrial fibrillation which was expected as she had chronic atrial fibrillation preoperatively.. Patient Condition at Discharge: Stable Plan - Discharge Summary Discharge Rx Participant: Yes New Discharge Prescriptions: New Benzocaine/Menthol Lozeng [Cepacol lozenge] 1 each MUCOUS MEM Q2H PRN lozenge PRN Reason: Sore Throat Amiodarone [Cordarone] 400 mg PO BID tab Ferrous Sulfate [Iron (65 MG Elemental)] 325 mg PO BID-W/MEALS 7 Days tab Furosemide [Lasix] 20 mg PO DAILY 7 Days tab Metoprolol Tartrate [Lopressor] 12.5 mg PO BID tab Magnesium Hydroxide [Milk of Magnesia Concentrate] 2,400 mg PO DAILY PRN ml PRN Reason: Constipation INSULIN ASPART (NovoLOG) [NovoLOG (formulary)] 0 unit SQ ACHS vial Pantoprazole [Protonix] 40 mg PO AC-BRKFST tablet. Sennosidetom-Docusate Sodium [Senokot-S] 2 each PO HS PRN tab PRN Reason: Constipation Cinacalcet [Sensipar] 60 mg PO BID tab Sodium Bicarbonate Tab 650 mg PO BID tab Acetaminophen Tab [Tylenol] 650 mg PO Q4HR PRN tab PRN Reason: Fever and/ or Moderate Pain Ascorbic Acid [Vitamin C] 500 mg PO BID-W/MEALS 7 Days tab Continue Apixaban [Eliquis] 5 mg PO BID Atorvastatin [Lipitor] 80 mg PO HS #30 tab Aspirin [Adult Low Dose Aspirin EC] 81 mg PO DAILY #30 tablet. Cholecalciferol (Vitamin D3) [Vitamin D3] 2,000 unit PO DAILY Discontinued Cinacalcet HCl [Sensipar] 30 mg PO BID Nitroglycerin Sl Tabs [Nitrostat] 0.4 mg SUBLINGUAL Q5M PRN #25 tab PRN Reason: Chest Pain Lisinopril [Zestril] 2.5 mg PO DAILY tab Carvedilol [Coreg] 3.125 mg PO BID-W/MEALS #60 tab Bumetanide 1 mg PO BID Discharge Medication List Apixaban [Eliquis] 5 mg PO BID 10/27/17 [History] Aspirin [Adult Low Dose Aspirin EC] 81 mg PO DAILY #30 tablet. 08/06/18 [Rx] Atorvastatin [Lipitor] 80 mg PO HS #30 tab 08/06/18 [Rx] Cholecalciferol (Vitamin D3) [Vitamin D3] 2,000 unit PO DAILY 08/15/18 [History] Acetaminophen Tab [Tylenol] 650 mg PO Q4HR PRN tab 08/28/18 [Rx] Amiodarone [Cordarone] 400 mg PO BID tab 08/28/18 [Rx] Ascorbic Acid [Vitamin C] 500 mg PO BID-W/MEALS 7 Days tab 08/28/18 [Rx] Benzocaine/Menthol Lozeng [Cepacol lozenge] 1 each MUCOUS MEM Q2H PRN lozenge 08/28/18 [Rx] Cinacalcet [Sensipar] 60 mg PO BID tab 08/28/18 [Rx] Ferrous Sulfate [Iron (65 MG Elemental)] 325 mg PO BID-W/MEALS 7 Days tab 08/28/18 [Rx] Furosemide [Lasix] 20 mg PO DAILY 7 Days tab 08/28/18 [Rx] INSULIN ASPART (NovoLOG) [NovoLOG (formulary)] 0 unit SQ ACHS vial 08/28/18 [Rx] Magnesium Hydroxide [Milk of Magnesia Concentrate] 2,400 mg PO DAILY PRN ml 08/28/18 [Rx] Metoprolol Tartrate [Lopressor] 12.5 mg PO BID tab 08/28/18 [Rx] Pantoprazole [Protonix] 40 mg PO AC-BRKFST tablet. 08/28/18 [Rx] Sennosides-Docusate Sodium [Senokot-S] 2 each PO HS PRN tab 08/28/18 [Rx] Sodium Bicarbonate Tab 650 mg PO BID tab 08/28/18 [Rx] Follow up Appointment(s)/Referral(s): Jessica Trevino NPC [Nurse Practitioner] - 09/17/18 3:15 pm Jones Palm MD [STAFF PHYSICIAN] - 09/26/18 1:00 pm Roberto Berry MD [Primary Care Provider] - 1 Week (Call for appointment upon discharge from [facility]) Parviz Jackson MD [STAFF PHYSICIAN] - 09/09/18 1:45 pm Ambulatory/Diagnostic Orders: Complete Blood Count w/diff [LAB.AMB] Time Frame: 3 Days, Location: None Selected Comprehensive Metabolic Panel [LAB.AMB] Time Frame: 3 Days, Location: None Selected Activity/Diet/Wound Care/Special Instructions: DISCHARGE INSTRUCTIONS: 1. No driving for 4 weeks, or until physician gives their ok. 2. The patient should sleep in their own bed, no medical bed needed. 3. Stairs are not an issue. If the bedroom is upstairs, it is advised that the patient go up at night and down in the morning for the first week. Go slowly, using handrail and take 1 step at a time. 4. GARY hose are to be worn for 30 days or until physician discontinues. 5. Heart hugger is to be worn 100% of the time until physician discontinues.(except when showering) 6. No lifting, pushing, or pulling more than 10 pounds for 12 weeks. The physician will advise of any restriction changes. 7. The patient is expected to continue the prescribed walking program. 8. Continue pain control per as needed orders. 9. Continue with incentive spirometry and splinting/heart hugger until otherwise directed by the physician. 10. Must shower daily using liquid antibacterial soap and a separate white washcloth for each individual incision. 11. Routine sternal incision care. No powders, lotions, ointments on incisions. 12. Please call surgeon/VIOLENT CRIMES DETECTIVE for temp greater than 101 F or purulent drainage from incisions. 13. All prescriptions given by surgeon for 30 days. Refills need to be filled through sort supervisor/primary care physician. 14. A Red armband has been placed on the patient. It should be worn for 30 days post surgery and will be removed by the cardiac surgeons. If an ER visit is nec essary, please make sure the number on the Red armband is called. REHAB/HOME HEALTH SERVICES TO PROVIDE: RN SKILLED HOME CARE SERVICES FOR POST-OP SURGICAL PATIENTS WITH THE FOLLO WING: Coronary Artery Bypass Surgery (CABG), Mitral Valve Replacement/Repair ( MVR), Aortic Valve Replacement/Repair (AVR) RN TO CONTINUE EDUCATION FROM ``ROAD TO A [facility]ART PATIENT EDUCATION BHARATHI NOVOA (GIVEN TO PATIENT IN THE HOSPITAL) MEDICATION RECONCILIATION WITH EDUCATION NEEDED ON FIRST HOME VISIT EMPHASIZE IMPORTANCE OF WEARING BREAST SUPPORT/HEART HUGGER ENCOURAGE USE OF INCENTIVE SPIROMETER 10 X EVERY HOUR WHILE AWAKE ENCOURAGE UTILIZATION OF LOWER EXTREMITY COMPRESSION STOCKINGS/GARY HOSE and ELEVATE LEGS ABOVE LEVEL OF HEART WHILE AT REST. ENCOURAGE AMBULATION 3-5x/day INCREASING TOLERATES, WHILE AVOID EXTREMES IN TEMPERATURE FREQUENCY: RN TO OPEN THE PATIENT WITHIN 24 HOURS OF [place]CHARGE FROM [place] [facility] [place] [facility] [place] TO VISIT 2-3 X A WEEK FOR 4 WEEKS ESTABLISHED BY PATIENT NEEDS. LABORATORY: CBC, CMP TO BE DRAWN ON THE THIRD DAY AT REHAB, THEN PER PROTOCOL (RAN STAT) FAX RESULTS TO [phone]. CALCIUM WITH IONIZED CALCIUM SHOULD BE DRAWN DAILY WITH RESULTS CALLED TO DR. BERRY. TELEHEALTH PARAMETERS: WEIGHT: NOTIFY MD OF WEIGHT GAIN OF 2 LBS IN 24 HOURS OR 5 LBS IN ONE WEEK HR: NOTIFY MD OF HR <55 BPM OR HR>100 BPM BP: NOTIFY MD IF BP <90/55 OR BP>140/100 O2 SAT: NOTIFY MD IF PO2<93% ON ROOM AIR SEND TELEHEALTH REPORT TO DRIVER SERVICE TECHNICIAN AND CARDIOVASCULAR SURGEON THE FIRST WEEK OF CARE AND THEN BI-WEEKLY. PLEASE ADDITIONALLY COMMUNICATE ANY ABNORMALS AND NEW FINDINGS TO THE SURGEONS OFFICE.
--- NOTE | 2018-08-29 00:20 | PN ---
PROGRESS NOTE DATE OF SERVICE: August 28, 2018. PRESENTING COMPLAINT: Coronary artery bypass. INTERVAL HISTORY: Patient is status post coronary artery bypass. Doing very well this morning. Did actually walk again in the hallway. Tolerating a diet. Breathing is much improved. Overall feeling much better. REVIEW OF SYSTEMS: Done for constitutional, cardiovascular, GI, pulmonary; relevant findings as above. CURRENT MEDICATIONS: Reviewed. PHYSICAL EXAMINATION: VITAL SIGNS: Temperature 97.6, pulse 69, respirations 20, blood pressure 121/50, pulse ox 96% on room air. GENERAL APPEARANCE: Sitting up, feeling much better. EYES: Pupils equal. Conjunctivae normal. NECK: JVD not raised. Mass not palpable. RESPIRATORY: Effort increased. LUNGS: Decreased breath sounds. CARDIOVASCULAR: Heart sounds muffled. Minimal edema. ABDOMEN: Soft, nontender. Liver and spleen not palpable. PSYCHIATRY: Alert and oriented x3. Mood and affect normal. INVESTIGATIONS: White count 9.5, hemoglobin 7.9, potassium 5.3, BUN 36, creatinine 1.03, ionized calcium 6.2. ASSESSMENT: 1. Coronary artery bypass in a patient with known coronary artery disease. 2. Acute on chronic congestive heart failure exacerbation from diastolic dysfunction EF 35-40 percent, underlying coronary artery disease. 3. Hypertensive heart disease. 4. Paroxysmal atrial flutter fibrillation currently sinus rhythm. 5. Essential hypertension. 6. Primary osteoarthritis. 7. Complete occlusion of right internal carotid artery and 80% occlusion of the left internal carotid artery. 8. Acute non-ST elevation myocardial infarction. 9. Severe chronic obstructive pulmonary disease. 10.Peripheral artery disease. 11.Chronic venous insufficiency lower extremity. 12. thrombocytopenia, improving. 13.Acute postoperative blood loss anemia expected from surgery. 14.Hypercalcemia in a patient with known hyperparathyroidism. The patient's dose of cinacalcet was increased 2 days ago. PLAN: Did speak to Hilary from cardiothoracic, did tell her to put for discharge, to have ionized calcium checked every day and this can be followed by the primary care physician as an outpatient. Otherwise patient doing much better. MMODL / IJN: [id number] /
[2018-08-29] MEDS ORDERED: FUROSEMIDE 20 MG TAB PO SCH (09:00)
== END 2018-08-28 16:21 | DRG 233 ==
LOC: EC 14:50 → 3SCARD 18:51 → 2SICU 08-17 13:14 → OBSVTOIN 08-17 14:31
PROVIDERS: ADMIT Thoracic Surgery (Cardiothoracic Vascular Surgery); ATTEND Thoracic Surgery (Cardiothoracic Vascular Surgery)
PROC: 4A023N7 Measurement of Cardiac Sampling and Pressure, Left Heart, Percutaneous Approach (ICD-10-PCS; 2018-08-17)
PROC: B2111ZZ Fluoroscopy of Multiple Coronary Arteries using Low Osmolar Contrast (ICD-10-PCS; 2018-08-17)
PROC: B54DZZZ Ultrasonography of Bilateral Lower Extremity Veins (ICD-10-PCS; 2018-08-21)
PROC: 30243N1 Transfusion of Nonautologous Red Blood Cells into Central Vein, Percutaneous Approach (ICD-10-PCS; 2018-08-22)
PROC: 06BQ4ZZ Excision of Left Saphenous Vein, Percutaneous Endoscopic Approach (ICD-10-PCS; 2018-08-23)
PROC: 02L70CK Occlusion of Left Atrial Appendage with Extraluminal Device, Open Approach (ICD-10-PCS; 2018-08-23)
PROC: 02110Z9 Bypass Coronary Artery, Two Arteries from Left Internal Mammary, Open Approach (ICD-10-PCS; principal; 2018-08-23 08:00)
PROC: 021009W Bypass Coronary Artery, One Artery from Aorta with Autologous Venous Tissue, Open Approach (ICD-10-PCS; 2018-08-23 08:00)
DX: I21.4 Non-ST elevation (NSTEMI) myocardial infarction (principal); I49.01 Ventricular fibrillation; I50.43 Acute on chronic combined systolic (congestive) and diastolic (congestive) heart failure; D62 Acute posthemorrhagic anemia; I47.2 Ventricular tachycardia; I48.1 Persistent atrial fibrillation; I48.92 Unspecified atrial flutter; J98.11 Atelectasis; J93.83 Other pneumothorax; Z68.43 Body mass index [BMI] 50.0-59.9, adult; D69.59 Other secondary thrombocytopenia; I11.0 Hypertensive heart disease with heart failure; E66.01 Morbid (severe) obesity due to excess calories; I08.1 Rheumatic disorders of both mitral and tricuspid valves; E87.5 Hyperkalemia; I65.23 Occlusion and stenosis of bilateral carotid arteries; J98.4 Other disorders of lung; I73.9 Peripheral vascular disease, unspecified; J44.9 Chronic obstructive pulmonary disease, unspecified; E21.3 Hyperparathyroidism, unspecified; E78.5 Hyperlipidemia, unspecified; F17.210 Nicotine dependence, cigarettes, uncomplicated; F41.9 Anxiety disorder, unspecified; I25.10 Atherosclerotic heart disease of native coronary artery without angina pectoris; I87.2 Venous insufficiency (chronic) (peripheral); K64.9 Unspecified hemorrhoids; M19.91 Primary osteoarthritis, unspecified site; H26.9 Unspecified cataract; G47.33 Obstructive sleep apnea (adult) (pediatric); Z79.01 Long term (current) use of anticoagulants; Z79.82 Long term (current) use of aspirin; Z79.899 Other long term (current) drug therapy; Z85.42 Personal history of malignant neoplasm of other parts of uterus; Z90.710 Acquired absence of both cervix and uterus; Z95.5 Presence of coronary angioplasty implant and graft; Z96.653 Presence of artificial knee joint, bilateral
CPT/HCPCS: 36410; 36415; 70498; 71045; 71046; 76937; 80048; 80053; 80061; 80074; 81003; 82272; 82330; 82805; 83036; 83735; 83880; 84100; 84443; 84484; 85025; 85027; 85520; 85610; 85730; 86850; 86891; 86900; 86901; 86920; 87070; 87086; 87324; 93005; 93306; 93308; 93458; 93880; 93922; 93970; 94002; 94003; 94150; 94640; 96365; 96366; 96375; 99285

== ENCOUNTER 2018-09-21 13:58 | Inpatient (IN) | payer MEDICARE, OTHER ==
--- NOTE | 2018-09-21 14:18 | ED ---
General Adult HPI - General Chief complaint: Recheck/Abnormal Lab/Rx Stated complaint: Low hemoglobin Time Seen by Provider: 09/21/18 14:02 Source: family, EMS Mode of arrival: EMS Limitations: no limitations - History of Present Illness Initial comments: Dictation was produced using [employer] dictation software. please excuse any grammatical, word or spelling errors. Chief Complaint: 67-year-old female presents from longterm for hemoglobin of 6.8. History of Present Illness: Patient is 67-year-old female she was sent in from [facility]. She had a CABG performed on August 23. Patient had outpatient labs performed where she had a hemoglobin of 6.8. Patient has been having couple days of dark loose stools. Patient feeling slightly lightheaded. Patient however not having any other specific complaints. Denies any abdominal pain. No nausea vomiting. The ROS documented in this emergency department record has been reviewed and confirmed by me. Those systems with pertinent positive or negative responses have been documented in the HPI. All other systems are other negative and/or noncontributory. PHYSICAL EXAM: General Impression: Alert and oriented x3, not in acute distress, obese HEENT: Normocephalic atraumatic, extra-ocular movements intact, pupils equal and reactive to light bilaterally, mucous membranes moist. Cardiovascular: Heart regular rate and rhythm, S1&S2 audible, no murmurs, rubs or gallops Chest: Lungs clear to auscultation bilaterally, no rhonchi, no wheeze, no rales Abdomen: Bowel sounds present, abdomen soft, non-tender, non-distended, no organomegaly Musculoskeletal: Pulses present and equal in all extremities, no peripheral edema Motor: no focal deficits noted Neurological: CN II-XII grossly intact, no focal motor or sensory deficits noted Skin: Intact with no visualized rashes Psych: Normal affect and mood Rectal exam: Limited evaluation the rectum however there is dark stools noted around the anus. ED course: 67-year-old female presents with anemia. Likely sources secondary to GI bleed. Vital signs upon arrival shows blood pressure 99/84. Patient is on L Oquist she is on multiple cardiac medications. Stool: blood is positive. Leukocytosis and 2.1. Hemoglobin 6.3. Thrombocytopenia. Coag panel shows INR 1.5. Patient is slightly elevated renal markers. Lactic acid was 2.7. Chest x-ray shows airspace disease in the right side patient not having any respiratory symptoms. Patient given Protonix. Patient be admitted to cardiac telemetry. Transfusion ordered. Patient be admitted with GI on consultation. Blood pressure appears to be stable. EKG interpretation: Ventricular rate 72, atrial fibrillation, QRS 120, QTC 470. No OK prolongation, no QTC prolongation, no ST or T-wave changes noted. Overall, this EKG is unremarkable - Related Data Home Medications Medication Instructions Recorded Confirmed Apixaban [Eliquis] 5 mg PO BID@0800,1700 10/27/17 09/21/18 Cholecalciferol (Vitamin D3) 2,000 unit PO DAILY@1700 08/15/18 09/21/18 [Vitamin D3] Aspirin [Adult Low Dose Aspirin EC] 81 mg PO DAILY@1700 09/21/18 09/21/18 Atorvastatin [Lipitor] 80 mg PO HS@2100 09/21/18 09/21/18 Benzocaine/Menthol Lozeng [Cepacol 1 lozenge MUCOUS MEM Q2H PRN 09/21/18 09/21/18 lozenge] Bisacodyl [Dulcolax] 10 mg RECTAL DAILY PRN 09/21/18 09/21/18 Cinacalcet [Sensipar] 60 mg PO BID@0800,1700 09/21/18 09/21/18 Ciprofloxacin HCl [Cipro] 500 mg PO Q12HR 09/21/18 09/21/18 Furosemide [Lasix] 20 mg PO BID@0600,1400 09/21/18 09/21/18 INSULIN ASPART (NovoLOG) [NovoLOG See Protocol SQ ACHS 09/21/18 09/21/18 (formulary)] Ipratropium-Albuterol Nebulize 3 ml INHALATION RT-Q4H PRN 09/21/18 09/21/18 [Duoneb 0.5 mg-3 mg/3 ml Soln] Metoprolol Tartrate [Lopressor] 12.5 mg PO BID@0800,1700 09/21/18 09/21/18 Na Phos,M-B/Na Phos,Di-Ba [Fleet 133 ml RECTAL DAILY PRN 09/21/18 09/21/18 Adult] Pantoprazole [Protonix] 40 mg PO DAILY@0600 09/21/18 09/21/18 Potassium Chloride ER [K-Dur 20] 20 meq PO DAILY@1700 09/21/18 09/21/18 Prostat 30 ml PO DAILY@0800 09/21/18 09/21/18 Sennosides-Docusate Sodium 2 tab PO HS PRN 09/21/18 09/21/18 [Senokot-S] Sodium Bicarbonate Tab 650 mg PO BID@0800,1700 09/21/18 09/21/18 Previous Rx's Medication Instructions Recorded Acetaminophen Tab [Tylenol] 650 mg PO Q4HR PRN tab 08/28/18 Magnesium Hydroxide [Milk of 2,400 mg PO DAILY PRN ml 08/28/18 Magnesia Concentrate] Allergies Allergy/AdvReac Type Severity Reaction Status Date / Time No Known Allergies Allergy Verified 09/21/18 14:10 Review of Systems ROS Statement: Those systems with pertinent positive or pertinent negative responses have been documented in the HPI. ROS Other: All systems not noted in ROS Statement are negative. Past Medical History Past Medical History: Atrial Fibrillation, Coronary Artery Disease (CAD), Chest Pain / Angina, Hyperlipidemia, Hypertension, Myocardial Infarction (non Q-wave), Osteoarthritis (OA), Vascular Disorder Additional Past Medical History / Comment(s): UTERINE CANCER. LT CATARACT, morbid obesity. History of Any Multi-Drug Resistant Organisms: None Reported Past Surgical History: Hysterectomy, Orthopedic Surgery Additional Past Surgical History / Comment(s): UZMA KNEE REPLACMENTS, RT ANKLE- METAL PLATE, RT ARM SX REPAIR D/T LACERATION. RT THUMB TENDON REPAIR," LT FOOT GREAT TOE BONE REMOVED". Stent x 2 (2003) Past Anesthesia/Blood Transfusion Reactions: Blood Transfusion Reaction Additional Past Anesthesia/Blood Transfusion Reaction / Comment(s): PAST BLOOD [id number] Date of Last Stent Placement:: 2003 Past Psychological History: No Psychological Hx Reported Smoking Status: Former smoker Past Alcohol Use History: None Reported Past Drug Use History: None Reported - Past Family History Mother Family Medical History: No Reported History Father History Unknown: Yes General Exam Limitations: no limitations Course Vital Signs 09/21/18 09/21/18 09/21/18 14:03 14:41 15:45 Temperature 97.8 F Pulse Rate 68 70 78 Respiratory 16 16 16 Rate Blood Pressure 99/84 93/54 83/45 O2 Sat by Pulse 97 96 93 L Oximetry Medical Decision Making - Lab Data Result diagrams: 09/21/18 14:50 09/21/18 14:50 Lab Results 09/21/18 09/21/18 09/21/18 Range/Units 14:25 14:50 14:50 WBC 17.1 H (3.8-10.6) k/uL RBC 2.29 L (3.80-5.40) m/uL Hgb 6.3 L* (11.4-16.0) gm/dL Hct 20.4 L (34.0-46.0) % MCV 89.1 (80.0-100.0) fL MCH 27.7 (25.0-35.0) pg MCHC 31.1 (31.0-37.0) g/dL RDW 23.2 H (11.5-15.5) % Plt Count 283 (150-450) k/uL Neutrophils % 88 % Lymphocytes % 7 % Monocytes % 3 % Eosinophils % 0 % Basophils % 0 % Neutrophils # 15.0 H (1.3-7.7) k/uL Lymphocytes # 1.2 (1.0-4.8) k/uL Monocytes # 0.6 (0-1.0) k/uL Eosinophils # 0.1 (0-0.7) k/uL Basophils # 0.1 (0-0.2) k/uL Hypochromasia Marked Poikilocytosis Moderate Anisocytosis Moderate Macrocytosis Slight PT (9.0-12.0) sec INR (<1.2) Sodium 140 (137-145) mmol/L Potassium 3.9 (3.5-5.1) mmol/L Chloride 103 (98-107) mmol/L Carbon Dioxide 27 (22-30) mmol/L Anion Gap 10 mmol/L BUN 59 H (7-17) mg/dL Creatinine 1.18 H (0.52-1.04) mg/dL Est GFR (CKD-EPI)AfAm 55 (>60 ml/min/1.73 sqM) Est GFR (CKD-EPI)NonAf 47 (>60 ml/min/1.73 sqM) Glucose 120 H (74-99) mg/dL Plasma Lactic Acid Hayden (0.7-2.0) mmol/L Calcium 10.1 (8.4-10.2) mg/dL Magnesium 1.9 (1.6-2.3) mg/dL Total Bilirubin 1.2 (0.2-1.3) mg/dL AST 75 H (14-36) U/L ALT 9 (9-52) U/L Alkaline Phosphatase 131 H (38-126) U/L Total Protein 6.2 L (6.3-8.2) g/dL Albumin 3.1 L (3.5-5.0) g/dL Stool Occult Blood Positive H (Negative) 09/21/18 09/21/18 Range/Units 14:50 14:50 WBC (3.8-10.6) k/uL RBC (3.80-5.40) m/uL Hgb (11.4-16.0) gm/dL Hct (34.0-46.0) % MCV (80.0-100.0) fL MCH (25.0-35.0) pg MCHC (31.0-37.0) g/dL RDW (11.5-15.5) % Plt Count (150-450) k/uL Neutrophils % % Lymphocytes % % Monocytes % % Eosinophils % % Basophils % % Neutrophils # (1.3-7.7) k/uL Lymphocytes # (1.0-4.8) k/uL Monocytes # (0-1.0) k/uL Eosinophils # (0-0.7) k/uL Basophils # (0-0.2) k/uL Hypochromasia Poikilocytosis Anisocytosis Macrocytosis PT 14.9 H (9.0-12.0) sec INR 1.5 H (<1.2) Sodium (137-145) mmol/L Potassium (3.5-5.1) mmol/L Chloride (98-107) mmol/L Carbon Dioxide (22-30) mmol/L Anion Gap mmol/L BUN (7-17) mg/dL Creatinine (0.52-1.04) mg/dL Est GFR (CKD-EPI)AfAm (>60 ml/min/1.73 sqM) Est GFR (CKD-EPI)NonAf (>60 ml/min/1.73 sqM) Glucose (74-99) mg/dL Plasma Lactic Acid Hayden 2.7 H* (0.7-2.0) mmol/L Calcium (8.4-10.2) mg/dL Magnesium (1.6-2.3) mg/dL Total Bilirubin (0.2-1.3) mg/dL AST (14-36) U/L ALT (9-52) U/L Alkaline Phosphatase (38-126) U/L Total Protein (6.3-8.2) g/dL Albumin (3.5-5.0) g/dL Stool Occult Blood (Negative) Disposition Clinical Impression: Blood loss anemia Disposition: ADMITTED IP TO THIS [facility] Condition: Fair Referrals: Joe Boyle MD [Primary Care Provider] - 1-2 days Decision Time: 16:12
[2018-09-21 15:07] LABS: Anisocytosis Moderate; Basophils # (A) 0.1 k/uL (0-0.2); Basophils % (A) 0 %; Eosinophils # (A) 0.1 k/uL (0-0.7); Eosinophils % (A) 0 %; HCT 20.4 % (34.0-46.0); Hypochromasia Marked; Lymphocytes # (A) 1.2 k/uL (1.0-4.8); Lymphocytes % (A) 7 %; MCH 27.7 pg (25.0-35.0); MCHC 31.1 g/dL (31.0-37.0); MCV 89.1 fL (80.0-100.0); Macrocytosis Slight; Mean Platelet Volume 9.3; Monocytes # (A) 0.6 k/uL (0-1.0); Monocytes % (A) 3 %; Neutrophils % (A) 88 %; Platelet Count 283 k/uL (150-450); Poikilocytosis Moderate; RBC 2.29 m/uL (3.80-5.40); RDW 23.2 % (11.5-15.5); WBC 17.1 k/uL (3.8-10.6)
[2018-09-21 15:19] LABS: INR 1.5 (<1.2); Prothrombin Time 14.9 sec (9.0-12.0)
--- NOTE | 2018-09-21 15:20 | XR ---
EXAMINATION TYPE: XR chest 2V DATE OF EXAM: 09/21/2018 COMPARISON: 08/28/2018 HISTORY: Weakness and anemia TECHNIQUE: Frontal and lateral views of the chest are obtained. FINDINGS: There is an increasing right pleural effusion, now moderate with associated right basilar airspace disease. Minimal left basilar airspace disease appears linear as well as left midlung atelec tasis. Cardia mediastinal silhouette demonstrates postsurgical change and is enlarged. No sizable pne umothorax. No pulmonary vascular congestion. Biapical pleural parenchymal scarring is noted. Osseous structures are suboptimally visualized but grossly intact. IMPRESSION: Worsening right pleural effusion, now moderate with associated airspace disease that may represent atelectasis or pneumonia. Minimal multifocal left-sided atelectasis is also noted.
[2018-09-21 15:30] LABS: Albumin 3.1 g/dL (3.5-5.0); Calcium 10.1 mg/dL (8.4-10.2); HGB 6.3 gm/dL (11.4-16.0); Magnesium 1.9 mg/dL (1.6-2.3); Potassium 3.9 mmol/L (3.5-5.1); Total Bilirubin 1.2 mg/dL (0.2-1.3); Total Protein 6.2 g/dL (6.3-8.2)
[2018-09-21] MEDS ORDERED: PANTOPRAZOLE 40 MG/10 ML VIAL IVP ONE (15:43)
[2018-09-21] MEDS ORDERED: ONDANSETRON 4 MG/2 ML VIAL IVP PRN (16:12)
[2018-09-21] MEDS ORDERED: ACETAMINOPHEN TAB 325 MG TAB PO PRN ×2 (16:12→16:14)
[2018-09-21] MEDS ORDERED: NALOXONE 0.4 MG/ML 1 ML VIAL IV PRN (16:12)
[2018-09-21 17:27] LABS: Glucose,Whole Blood 119 mg/dL (75-99)
[2018-09-21 18:08] VITALS: BMI 49.4
[2018-09-21] MEDS: METOPROLOL TARTRATE 12.5 MG TAB PO SCH (18:43)
[2018-09-21] MEDS: SODIUM CHLORIDE 0.9% 1,000 ML IV SCH ×2 (20:26→20:57)
[2018-09-21 20:52] LABS: Glucose,Whole Blood 121 mg/dL (75-99)
[2018-09-21] MEDS: CIPROFLOXACIN HCL 500 MG TAB PO SCH (20:57)
[2018-09-21] MEDS: PANTOPRAZOLE 40 MG/10 ML VIAL IV SCH (20:57)
[2018-09-22 02:34] LABS: Glucose,Whole Blood 112 mg/dL (75-99)
[2018-09-22] MEDS ORDERED: PANTOPRAZOLE 40 MG TABLET PO SCH (06:00)
[2018-09-22 06:12] LABS: Glucose,Whole Blood 95 mg/dL (75-99)
[2018-09-22 08:19] LABS: Anisocytosis Moderate; Basophils # (A) 0.1 k/uL (0-0.2); Basophils % (A) 0 %; Eosinophils # (A) 0.1 k/uL (0-0.7); Eosinophils % (A) 1 %; HCT 20.6 % (34.0-46.0); Hypochromasia Marked; Lymphocytes # (A) 1.6 k/uL (1.0-4.8); Lymphocytes % (A) 11 %; MCH 28.3 pg (25.0-35.0); MCV 88.4 fL (80.0-100.0); Macrocytosis Slight; Mean Platelet Volume 9.4; Monocytes # (A) 0.6 k/uL (0-1.0); Monocytes % (A) 4 %; Neutrophils # (A) 11.9 k/uL (1.3-7.7); Neutrophils % (A) 83 %; Platelet Count 221 k/uL (150-450); Poikilocytosis Marked; RBC 2.33 m/uL (3.80-5.40); RDW 23.3 % (11.5-15.5); WBC 14.3 k/uL (3.8-10.6)
[2018-09-22 08:21] LABS: HGB 6.6 gm/dL (11.4-16.0)
[2018-09-22] MEDS: PANTOPRAZOLE 40 MG/10 ML VIAL IV SCH ×2 (08:55→20:39)
[2018-09-22] MEDS: METOPROLOL TARTRATE 12.5 MG TAB PO SCH ×2 (08:55→15:39)
[2018-09-22] MEDS: CIPROFLOXACIN HCL 500 MG TAB PO SCH ×2 (08:55→20:39)
[2018-09-22 12:00] LABS: Glucose,Whole Blood 90 mg/dL (75-99)
[2018-09-22] MEDS ORDERED: BISACODYL 10 MG SUPP RECTAL PRN (12:15)
[2018-09-22] MEDS ORDERED: SENNOSIDES-DOCUSATE SODIUM 1 EACH TAB PO PRN (12:15)
[2018-09-22] MEDS ORDERED: NA PHOS,M-B/NA PHOS,DI-BA 133 ML ENEMA RECTAL PRN (12:15)
[2018-09-22] MEDS ORDERED: MAGNESIUM HYDROXIDE 2,400 MG/10 ML CUP PO PRN (12:15)
[2018-09-22] MEDS ORDERED: IPRATROPIUM-ALBUTEROL 3 ML NEB INHALATION PRN (12:15)
[2018-09-22] MEDS: CINACALCET 30 MG TAB PO SCH ×2 (15:38→15:42)
[2018-09-22] MEDS: SODIUM BICARBONATE TAB 650 MG TAB PO SCH ×2 (15:39→15:43)
[2018-09-22] MEDS: CHOLECALCIFEROL 1,000 UNIT TAB PO SCH (15:39)
[2018-09-22] MEDS: FUROSEMIDE 20 MG TAB PO SCH (15:39)
[2018-09-22] MEDS: POTASSIUM CHLORIDE ER 20 MEQ TAB.ER PO SCH (15:40)
[2018-09-22] MEDS ORDERED: NON-FORMULARY DRUG (Aspirin [Adult Low Dose Aspirin Ec] 81 MG) PO SCH (17:00)
[2018-09-22 17:10] LABS: Glucose,Whole Blood 88 mg/dL (75-99)
[2018-09-22] MEDS: SODIUM CHLORIDE 0.9% 1,000 ML IV SCH (19:19)
--- NOTE | 2018-09-22 19:47 | HP ---
HISTORY AND PHYSICAL DATE OF ADMISSION: 09/21/2018 DATE OF SERVICE: 09/22/2018. PRESENTING COMPLAINT: Dark stools. HISTORY OF PRESENTING COMPLAINT: This is a pleasant 67-year-old patient of Visiting Physician, Dr. Saunders. Chronic stable medical conditions include persistent atrial fibrillation, congestive heart failure, essential hypertension, coronary artery disease, osteoarthritis. The patient underwent coronary artery bypass on August 23 and three-vessel bypass and ligation of the left atrial appendage. The patient was discharged on August 28, 2018. Patient was discharged to the [facility]. The patient now presents with dark stools, weak, tired, run down. No abdominal pain. The patient's hemoglobin when she was discharged was 7.9. Presented with a hemoglobin of 6.3. The patient was given a unit of blood. Repeat hemoglobin was 6.6 this morning. I ordered another unit of blood. GI was consulted on presentation. The patient has been made n.p.o. except for medications. Just feels tired and run down. REVIEW OF SYSTEMS: CONSTITUTIONAL: Weak and tired. HEENT: None. RESPIRATORY: Some shortness of breath. CARDIOVASCULAR: None. GASTROINTESTINAL: None. GENITOURINARY: None. MUSCULOSKELETAL: Pain in the joints. DERMATOLOGICAL, HEMATOLOGIC, LYMPHATIC: none. PSYCHIATRY none. NEUROLOGICAL: None. PAST MEDICAL HISTORY: Of atrial fibrillation, chronic venous insufficiency, congestive heart failure from diastolic dysfunction, coronary artery disease with bypass, hypertension, osteoarthritis. PAST SURGICAL HISTORY: Coronary artery bypass and cardiac cath with stent, hysterectomy, bilateral knee replacement, right ankle metal plate, right arm surgical fracture due to laceration, right thumb tendon repair. SOCIAL HISTORY: Normally lives by herself and at baseline uses a walker and a wheelchair. Currently at rehab [facility]. The patient smoked for 50 years, stopped in March of 2018. No alcohol. FAMILY HISTORY: Reviewed. Noncontributory to presentation. HOME MEDICATIONS: 1. Sodium bicarb 650 mg b.i.d. 2. Senokot-S 2 tablets p.o. q.h.s. p.r.n. 3. ProStat 30 mL p.o. daily. 4. Potassium 20 mEq daily. 5. Protonix 40 mg p.o. daily. 6. Adult Fleet 133 mL daily p.r.n. 7. Lopressor 12.5 p.o. b.i.d. 8. Milk of magnesia 2400 mg daily p.r.n. 9. DuoNeb q.4 p.r.n. 10.NovoLog per scale. 11.Lasix 20 mg b.i.d. 12.Cipro 500 mg q.12. 13.Sensipar 60 mg p.o. b.i.d. 14.Vitamin D3 2000 units p.o. daily. 15.Dulcolax 10 mg rectally daily p.r.n. 16.Cepacol p.r.n. 17.Lipitor 80 mg q.h.s. 18.Aspirin 81 mg p.o. daily. 19.Eliquis 5 mg b.i.d. 20.Tylenol 650 mg q.4 p.r.n. ALLERGIES: None. PHYSICAL EXAMINATION: VITAL SIGNS: Vital signs on presentation, temperature 97.8, pulse 68, respiratory rate 16, blood pressure 99/84, pulse ox 97% on room air. GENERAL APPEARANCE: Well built, BMI 50.2. Lying in bed, tired-appearing. EYES: Pupils equal. Conjunctivae pale. HEENT: External appearance of nose and ears normal. Oral cavity normal. NECK: JVD unable to assess. Mass not palpable. RESPIRATORY: Effort increased. LUNGS: Diminished breath sounds. CARDIOVASCULAR: First and second sounds normal. Minimal edema. ABDOMEN: Soft, nontender. Liver and spleen not palpable. LYMPHATICS: No lymph nodes palpable in the neck and axilla. PSYCHIATRY: Alert and oriented times three. Mood and affect tired-appearing. NEUROLOGICAL: Pupils equal. Cranial nerves grossly intact. Power and sensation grossly intact. INVESTIGATIONS: Hemoglobin is 6.3, white count 17.1, platelets 283. Potassium 3.9, BUN 59, creatinine 1.18, albumin 3.1. Stool occult blood was positive. ASSESSMENT: 1. Acute gastrointestinal bleed in a patient who is on Eliquis. 2. Acute severe blood loss anemia causing hypotension. Patient requiring 2 units of blood. 3. Coronary artery bypass recently. 4. Coronary artery disease, prior history of bypass and stent. 5. Chronic congestive heart failure from systolic dysfunction, EF 35-40 percent from underlying coronary artery disease. 6. Hypertensive heart disease. 7. Paroxysmal atrial fibrillation currently in sinus rhythm. 8. Essential hypertension. 9. Primary osteoarthritis. 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 11.Severe chronic obstructive pulmonary disease. 12.Peripheral artery disease. 13.Chronic venous insufficiency lower extremity. 14.Hypercalcemia in a patient with known hyperparathyroidism. PLAN: Patient's second unit of blood has been ordered. The patient's anti-platelet agents and blood thinner has been discontinued. GI was consulted. Other home medications to be resumed. Care was discussed with the patient. Questions were answered. The patient will need EGD. Copy to . MMODL / IJN: [id number] /
[2018-09-22] MEDS: ATORVASTATIN 80 MG TAB PO SCH (20:39)
[2018-09-22 20:51] LABS: Glucose,Whole Blood 90 mg/dL (75-99)
[2018-09-23 02:14] LABS: Glucose,Whole Blood 83 mg/dL (75-99)
[2018-09-23] MEDS: SODIUM CHLORIDE 0.9% 1,000 ML IV SCH ×2 (05:15→22:04)
[2018-09-23 06:04] LABS: Glucose,Whole Blood 93 mg/dL (75-99)
[2018-09-23] MEDS ORDERED: PROSTAT PO SCH (08:00)
[2018-09-23 08:12] LABS: Anisocytosis Moderate; Basophils % (A) 0 %; Eosinophils # (A) 0.1 k/uL (0-0.7); Eosinophils % (A) 1 %; HCT 24.5 % (34.0-46.0); HGB 7.7 gm/dL (11.4-16.0); Hypochromasia Moderate; Lymphocytes # (A) 1.4 k/uL (1.0-4.8); Lymphocytes % (A) 10 %; MCH 27.2 pg (25.0-35.0); MCHC 31.4 g/dL (31.0-37.0); MCV 86.9 fL (80.0-100.0); Macrocytosis Slight; Mean Platelet Volume 9.6; Monocytes # (A) 0.7 k/uL (0-1.0); Monocytes % (A) 5 %; Neutrophils # (A) 11.5 k/uL (1.3-7.7); Neutrophils % (A) 83 %; Platelet Count 238 k/uL (150-450); Poikilocytosis Moderate; RBC 2.82 m/uL (3.80-5.40); RDW 22.9 % (11.5-15.5); WBC 13.8 k/uL (3.8-10.6)
[2018-09-23] MEDS: PANTOPRAZOLE 40 MG/10 ML VIAL IV SCH ×2 (08:27→22:04)
[2018-09-23] MEDS: CIPROFLOXACIN HCL 500 MG TAB PO SCH ×2 (08:28→22:04)
[2018-09-23] MEDS: METOPROLOL TARTRATE 12.5 MG TAB PO SCH ×2 (08:28→16:41)
[2018-09-23] MEDS: CINACALCET 30 MG TAB PO SCH ×2 (08:28→16:40)
[2018-09-23] MEDS: FUROSEMIDE 20 MG TAB PO SCH ×2 (08:28→15:00)
[2018-09-23 11:33] LABS: Glucose,Whole Blood 96 mg/dL (75-99)
[2018-09-23 16:35] LABS: Glucose,Whole Blood 88 mg/dL (75-99)
[2018-09-23] MEDS: POTASSIUM CHLORIDE ER 20 MEQ TAB.ER PO SCH (16:40)
[2018-09-23] MEDS: CHOLECALCIFEROL 1,000 UNIT TAB PO SCH (16:40)
--- NOTE | 2018-09-23 16:47 | P.GSCN ---
History of Present Illness Consult date: 09/23/18 Reason for Consult: Recent coronary artery bypass surgery Requesting physician: Christopher Almaraz History of present illness: This is a 67-year-old female patient who positive Dr. Saunders on an outpatient basis. She has a previous medical history of symptomatic multivessel coronary artery disease with left main disease and recent non-STEMI status post off-pump coronary artery bypass grafting 3 on 08/23/2018 with postoperative anemia requiring transfusion, chronic systolic heart failure, chronic atrial fibrillation on Eliquis for anticoagulation, previous cardiac stent placement in 2003, hypertension, hyperlipidemia, morbid obesity, peripheral vascular disease, bilateral carotid stenosis with total occlusion in the right ICA and 80% stenosis in the left ICA, previous tobacco dependence with restrictive lung dis ease and recent FEV1 of 47% of predicted, chronic normocytic anemia, osteoarthritis, and hyperparathyroidism. She was discharged to [facility] after her open heart surgery on 08/28/2018. While there she had a number of complaints, most recently including dark tarry stools with weakness. Hemoglobin was drawn and was reported to be 6.3. Her discharge hemoglobin was 7.9, and was up to 9.3 on 09/06/2018. She was discharged on baby aspirin and Eliquis. She was sent from [facility] for evaluation. She received 2 units of packed red blood cells and this morning's hemoglobin was 7.7. She reports no further dark tarry stools. Consultation was placed for gastroenterology. In addition, consulta tion was placed for Dr. Palm as she is well-known to our service. Review of Systems Review of systems was completed and was negative except as noted. - Constitutional Reports fatigue, Reports weakness - Respiratory Reports dyspnea - Integumentary Reports wounds Past Medical History Past Medical History: Atrial Fibrillation, Coronary Artery Disease (CAD), Chest Pain / Angina, COPD, Hyperlipidemia, Hypertension, Myocardial Infarction (non Q- wave), Osteoarthritis (OA), Vascular Disorder Additional Past Medical History / Comment(s): UTERINE CANCER. LT CATARACT, morbid obesity. Last Myocardial Infarction Date:: 2003 History of Any Multi-Drug Resistant Organisms: None Reported Past Surgical History: Coronary Bypass/CABG, Heart Catheterization With Stent, Hysterectomy, Orthopedic Surgery Additional Past Surgical History / Comment(s): UZMA KNEE REPLACMENTS, RT ANKLE- METAL PLATE, RT ARM SX REPAIR D/T LACERATION. RT THUMB TENDON REPAIR," LT FOOT GREAT TOE BONE REMOVED". Off-pump 3 vessel CABG 08/23/2018 Past Anesthesia/Blood Transfusion Reactions: Blood Transfusion Reaction Additional Past Anesthesia/Blood Transfusion Reaction / Comm: PAST BLOOD [id number] Date of Last Stent Placement:: 2003 Past Psychological History: No Psychological Hx Reported Additional Psychological History / Comment(s): PT LIVES ALONE IN [place].NO STEPS TO CLIMB. NO PETS. 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 Smoking Status: Former smoker Past Alcohol Use History: None Reported Additional Past Alcohol Use History / Comment(s): STARTED SMOKING AT AGE 14 Past Drug Use History: None Reported - Past Family History Mother Family Medical History: No Reported History Father History Unknown: Yes Medications and Allergies Home Medications Medication Instructions Recorded Confirmed Type Apixaban [Eliquis] 5 mg PO BID@0800,1700 10/27/17 09/21/18 History Cholecalciferol (Vitamin D3) 2,000 unit PO DAILY@1700 08/15/18 09/21/18 History [Vitamin D3] Acetaminophen Tab [Tylenol] 650 mg PO Q4HR PRN tab 08/28/18 09/21/18 Rx Magnesium Hydroxide [Milk of 2,400 mg PO DAILY PRN ml 08/28/18 09/21/18 Rx Magnesia Concentrate] Aspirin [Adult Low Dose Aspirin EC] 81 mg PO DAILY@1700 09/21/18 09/21/18 History Atorvastatin [Lipitor] 80 mg PO HS@2100 09/21/18 09/21/18 History Benzocaine/Menthol Lozeng [Cepacol 1 lozenge MUCOUS MEM Q2H PRN 09/21/18 09/21/18 History lozenge] Bisacodyl [Dulcolax] 10 mg RECTAL DAILY PRN 09/21/18 09/21/18 History Cinacalcet [Sensipar] 60 mg PO BID@0800,1700 09/21/18 09/21/18 History Ciprofloxacin HCl [Cipro] 500 mg PO Q12HR 09/21/18 09/21/18 History Furosemide [Lasix] 20 mg PO BID@0600,1400 09/21/18 09/21/18 History INSULIN ASPART (NovoLOG) [NovoLOG See Protocol SQ ACHS 09/21/18 09/21/18 History (formulary)] Ipratropium-Albuterol Nebulize 3 ml INHALATION RT-Q4H PRN 09/21/18 09/21/18 History [Duoneb 0.5 mg-3 mg/3 ml Soln] Metoprolol Tartrate [Lopressor] 12.5 mg PO BID@0800,1700 09/21/18 09/21/18 History Na Phos,M-B/Na Phos,Di-Ba [Fleet 133 ml RECTAL DAILY PRN 09/21/18 09/21/18 History Adult] Pantoprazole [Protonix] 40 mg PO DAILY@0600 09/21/18 09/21/18 History Potassium Chloride ER [K-Dur 20] 20 meq PO DAILY@1700 09/21/18 09/21/18 History Prostat 30 ml PO DAILY@0800 09/21/18 09/21/18 History Sennosides-Docusate Sodium 2 tab PO HS PRN 09/21/18 09/21/18 History [Senokot-S] Sodium Bicarbonate Tab 650 mg PO BID@0800,1700 09/21/18 09/21/18 History Allergies Allergy/AdvReac Type Severity Reaction Status Date / Time No Known Allergies Allergy Verified 09/21/18 14:10 Surgical - Exam Vital Signs Temp Pulse Resp BP Pulse Ox 97.8 F 68 16 99/84 97 09/21/18 14:03 09/21/18 14:03 09/21/18 14:03 09/21/18 14:03 09/21/18 14:03 - General well developed, well nourished, no distress, no pain, obese - Eyes PERRL, normal ocular movement - ENT no hearing loss - Neck no masses, no bruits, trachea midline - Respiratory Lungs sounds clear bilaterally. Respirations even, nonlabored. Currently on room air with oxygen saturation 96%. - Cardiovascular S1, S2 present. Irregular rate and rhythm, controlled atrial fibrillation on telemetry. Sternum stable. Palpable pulses peripherally. Bilateral lower extremity edema present. No calf pain or tenderness noted. - Abdomen Abdomen: soft, non tender, bowel sounds - Genitourinary Deferred - Rectum Deferred - Integumentary Anterior chest incision well approximated without drainage. Bilateral lower extremities with multiple wounds present, all appear to be scabbed over with no current drainage. - Neurologic normal coordination, normal sensation - Musculoskeletal normal posture - Psychiatric oriented to time, oriented to person, oriented to place, speech is normal, memory intact Results - Labs 09/23/18 07:02 09/21/18 14:50 Abnormal Lab Results - Last 24 Hours (Table) 09/21/18 09/23/18 Range/Units 14:50 07:02 WBC 13.8 H (3.8-10.6) k/uL RBC 2.82 L (3.80-5.40) m/uL Hgb 7.7 L (11.4-16.0) gm/dL Hct 24.5 L (34.0-46.0) % RDW 22.9 H (11.5-15.5) % Neutrophils # 11.5 H (1.3-7.7) k/uL Crossmatch See Detail - Imaging Chest x-ray: report reviewed, image reviewed Assessment and Plan Assessment: 1. Acute blood loss anemia, possible gastrointestinal bleed with positive occult blood, status post red blood cell transfusion 2. Multivessel coronary artery disease with left main disease and recent non- STEMI, status post off-pump coronary artery bypass surgery 3. Chronic systolic heart failure 4. Chronic atrial fibrillation on Eliquis for anticoagulation 5. Hypertension 6. Hyperlipidemia 7. Morbid obesity 8. Peripheral vascular disease 9. Bilateral carotid artery stenosis, right totally occluded, left 80% stenosis 10. Previous tobacco dependence, severe restrictive lung disease with recent FEV1 47% of predicted 11. Chronic normocytic anemia 12. Osteoarthritis 13. Hyperparathyroidism Plan: The patient was seen and examined at the bedside. Chart/diagnostics were reviewed. The case was discussed with Dr. Torres, and the patient was seen by Dr. Palm. Patient is scheduled for EGD tomorrow. Aspirin, Eliquis are on hold at this time. We will defer to GI for timing of re-initiation of aspirin, anticoagulation as patient does have atrial fibrillation and is at risk for clot formation. In the meantime, continue patient on current medical therapy of statin, beta blockers, as well as Lasix. Continue Cipro for recent diagnosis of lower extremity wounds with Pseudomonas. Further transfusions per recommendation of GI. From our standpoint, incentive spirometry was ordered and should be encouraged. The patient should shower every day, her bilateral lower extremities should be Craig wrapped every day with legs elevated. PT/OT were ordered to increase activity. Continued medical management per primary care service. Thank you Dr. Almaraz for this consult. We look forward to working with you in the care of your patient. Time with Patient: Greater than 30
--- NOTE | 2018-09-23 20:04 | P.CONS ---
History of Present Illness - Reason for Consult Consult date: 09/23/18 Anemia of acute blood loss Requesting physician: Christopher Almaraz - Chief Complaint Dark stool - History of Present Illness 67-year-old female with a medical history significant for atrial fibrillation, congestive heart failure, central hypertension, coronary artery disease status post coronary artery bypass on August 23 who presented with complaints of anemia and dark stool. Patient was found to have hemoglobin of 6.6 on presentation down from her discharge hemoglobin of 7.9. She reports dark stool since leaving the hospital. She does not believe she has been on any nonsteroidal anti- inflammatory drugs. She denies any prior history of ulcer. She denies any prior EGD and has a remote history of colonoscopy. Patient reports a remote history of anemia in the past. She is denying any abdominal pain at this time and tolerating diet. The patient had been on Eliquis therapy which is currently being held. Hemoglobin found to be 7.7 after 2 units of PRBCs. Review of Systems REVIEW OF SYSTEMS: CONSTITUTIONAL: Denies any fevers, chills, weight change or fatigue. CARDIOVASCULAR: Denies any chest pain, palpitations high or low blood pressures RESPIRATORY: Denies any shortness of breath, hemoptysis or cough. GENITOURINARY: No dysuria or hematuria. MUSCULOSKELETAL: No weakness reported. SKIN: Denies any new rashes or lesions, jaundice or pallor. PSYCHIATRIC: Denies any depression or anxiety. NEUROLOGY: Denies headache, denies any new focal deficits. EARS/NOSE/THROAT: No recent hearing change, congestion, nasal discharge or sore throat. EYES: No pain in eyes, discharge or change in vision. GASTROINTESTINAL: As per HPI. Past Medical History Past Medical History: Atrial Fibrillation, Coronary Artery Disease (CAD), Chest Pain / Angina, COPD, Hyperlipidemia, Hypertension, Myocardial Infarction (non Q- wave), Osteoarthritis (OA), Vascular Disorder Additional Past Medical History / Comment(s): UTERINE CANCER. LT CATARACT, morbid obesity. Last Myocardial Infarction Date:: 2003 History of Any Multi-Drug Resistant Organisms: None Reported Past Surgical History: Coronary Bypass/CABG, Heart Catheterization With Stent, Hysterectomy, Orthopedic Surgery Additional Past Surgical History / Comment(s): UZMA KNEE REPLACMENTS, RT ANKLE- METAL PLATE, RT ARM SX REPAIR D/T LACERATION. RT THUMB TENDON REPAIR," LT FOOT GREAT TOE BONE REMOVED". Off-pump 3 vessel CABG 08/23/2018 Past Anesthesia/Blood Transfusion Reactions: Blood Transfusion Reaction Additional Past Anesthesia/Blood Transfusion Reaction / Comm: PAST BLOOD [id number] Date of Last Stent Placement:: 2003 Past Psychological History: No Psychological Hx Reported Additional Psychological History / Comment(s): PT LIVES ALONE IN [place].NO STEPS TO CLIMB. NO PETS. 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 Smoking Status: Former smoker Past Alcohol Use History: None Reported Additional Past Alcohol Use History / Comment(s): STARTED SMOKING AT AGE 14 Past Drug Use History: None Reported - Past Family History Mother Family Medical History: No Reported History Father History Unknown: Yes Medications and Allergies Home Medications Medication Instructions Recorded Confirmed Type Apixaban [Eliquis] 5 mg PO BID@0800,1700 10/27/17 09/21/18 History Cholecalciferol (Vitamin D3) 2,000 unit PO DAILY@1700 08/15/18 09/21/18 History [Vitamin D3] Acetaminophen Tab [Tylenol] 650 mg PO Q4HR PRN tab 08/28/18 09/21/18 Rx Magnesium Hydroxide [Milk of 2,400 mg PO DAILY PRN ml 08/28/18 09/21/18 Rx Magnesia Concentrate] Aspirin [Adult Low Dose Aspirin EC] 81 mg PO DAILY@1700 09/21/18 09/21/18 History Atorvastatin [Lipitor] 80 mg PO HS@2100 09/21/18 09/21/18 History Benzocaine/Menthol Lozeng [Cepacol 1 lozenge MUCOUS MEM Q2H PRN 09/21/18 09/21/18 History lozenge] Bisacodyl [Dulcolax] 10 mg RECTAL DAILY PRN 09/21/18 09/21/18 History Cinacalcet [Sensipar] 60 mg PO BID@0800,1700 09/21/18 09/21/18 History Ciprofloxacin HCl [Cipro] 500 mg PO Q12HR 09/21/18 09/21/18 History Furosemide [Lasix] 20 mg PO BID@0600,1400 09/21/18 09/21/18 History INSULIN ASPART (NovoLOG) [NovoLOG See Protocol SQ ACHS 09/21/18 09/21/18 History (formulary)] Ipratropium-Albuterol Nebulize 3 ml INHALATION RT-Q4H PRN 09/21/18 09/21/18 Hist ory [Duoneb 0.5 mg-3 mg/3 ml Soln] Metoprolol Tartrate [Lopressor] 12.5 mg PO BID@0800,1700 09/21/18 09/21/18 History Na Phos,M-B/Na Phos,Di-Ba [Fleet 133 ml RECTAL DAILY PRN 09/21/18 09/21/18 History Adult] Pantoprazole [Protonix] 40 mg PO DAILY@0600 09/21/18 09/21/18 History Potassium Chloride ER [K-Dur 20] 20 meq PO DAILY@1700 09/21/18 09/21/18 History Prostat 30 ml PO DAILY@0800 09/21/18 09/21/18 History Sennosides-Docusate Sodium 2 tab PO HS PRN 09/21/18 09/21/18 History [Senokot-S] Sodium Bicarbonate Tab 650 mg PO BID@0800,1700 09/21/18 09/21/18 History Allergies Allergy/AdvReac Type Severity Reaction Status Date / Time No Known Allergies Allergy Verified 09/21/18 14:10 Physical Exam Vitals: Vital Signs Temp Pulse Pulse Resp BP BP Pulse Ox 09/23/18 15:31 67 18 09/23/18 15:21 97.0 F L 67 18 106/50 96 09/23/18 12:00 97.6 F 60 18 113/53 97 09/23/18 08:28 97.5 F L 71 18 123/57 95 09/23/18 03:39 54 L 18 118/54 97 09/23/18 00:30 97.5 F L 67 18 125/67 94 L 09/22/18 20:30 97.5 F L 59 L 18 97/55 Intake and Output 09/23/18 09/23/18 09/23/18 06:59 14:59 22:59 Intake Total 720 120 Balance 720 120 Intake: Oral 720 120 Other: Voiding Method Bedside Commode Bedside Commode Bedside Commode # Voids 1 2 Weight 116.4 kg On physical examination, patient appears comfortable in no apparent distress. HEAD: Normocephalic, atraumatic. EYES: No scleral icterus. No conjunctival injection. MOUTH: No lesions, tongue midline. NECK: Trachea midline, no gross abnormalities. CHEST: Decreased air entry bilaterally. HEART: S1-S2 appreciated ABDOMEN: Soft, obese. Bowel sounds are positive. No organomegaly. No guarding or rigidity. EXTREMITIES: Bilateral pedal edema. SKIN: No rashes, no jaundice. NEUROLOGIC: Alert and oriented x3. No focal deficits. Results CBC & Chem 7: 09/23/18 07:02 09/21/18 14:50 Labs: Abnormal Lab Results - Last 24 Hours (Table) 09/21/18 09/23/18 Range/Units 14:50 07:02 WBC 13.8 H (3.8-10.6) k/uL RBC 2.82 L (3.80-5.40) m/uL Hgb 7.7 L (11.4-16.0) gm/dL Hct 24.5 L (34.0-46.0) % RDW 22.9 H (11.5-15.5) % Neutrophils # 11.5 H (1.3-7.7) k/uL Crossmatch See Detail Assessment and Plan (1) Blood loss anemia Narrative/Plan: 67-year-old female patient with multiple medical comorbidities who recently underwent CABG and was discharged from the hospital on August 28 who presented back with complaints of melena and was found to have an acute fall in her hemoglobin to 6.3. Differential includes upper GI bleed from peptic ulcer disea se, gastritis/esophagitis, AVM or other etiology. Current Visit: Yes Status: Acute Code(s): D50.0 - IRON DEFICIENCY ANEMIA SECONDARY TO BLOOD LOSS (CHRONIC) SNOMED Code(s): 721163763 (2) Melena Current Visit: Yes Status: Acute Code(s): K92.1 - MELENA SNOMED Code(s): 5698307 Plan: Supportive care Clear liquid diet Nothing by mouth after midnight Continue Protonix therapy Continue to hold anticoagulation therapy Continue to monitor hemoglobin and hematocrit and transfuse as needed Plan for EGD tomorrow Further recommendations pending findings of endoscopy Thank you for allowing us to participate in the care of the patient we will con tinue to follow
[2018-09-23 20:52] LABS: Glucose,Whole Blood 96 mg/dL (75-99)
[2018-09-23] MEDS: ATORVASTATIN 80 MG TAB PO SCH (22:04)
--- NOTE | 2018-09-23 23:56 | PN ---
PROGRESS NOTE DATE OF SERVICE: 09/23/2018 PRESENTING COMPLAINT: Dark. INTERVAL HISTORY: Patient presented with GI bleed on blood thinners following recent CABG. The patient did require 2 units of blood. Patient is also on ciprofloxacin for lower extremity wounds growing Citrobacter and Pseudomonas. The patient is more awake today. Seen by GI for EGD tomorrow. REVIEW OF SYSTEMS: Done for constitutional, cardiovascular, GI, pulmonary; relevant findings above. CURRENT MEDICATIONS: Reviewed. PHYSICAL EXAMINATION: VITAL SIGNS: Temperature 97.6, pulse 50, respiratory rate 18, blood pressure 113/53, pulse ox 97% on room air. GENERAL APPEARANCE: Sitting up, awake. EYES: Pupils equal. Conjunctivae pale. NECK: JVD unable to assess. Mass not palpable. RESPIRATORY: Effort increased. LUNGS: Decreased breath sounds. CARDIOVASCULAR: 1st and 2nd sounds normal. Some edema present. ABDOMEN: Soft, nontender. Liver and spleen not palpable. PSYCHIATRY: Alert and oriented x3. Mood and affect a bit tired. DERMATOLOGICAL: Lower extremity wounds, present on admission. INVESTIGATIONS: Hemoglobin is 7.7, white count 13.8. ASSESSMENT: 1. Acute gastrointestinal bleed in a patient on Eliquis. 2. Acute severe blood loss anemia causing hypotension. Patient requiring 2 units of blood. 3. Coronary artery disease bypass recently. 4. Coronary artery disease with prior history of bypass and stent. 5. Chronic congestive heart failure from systolic dysfunction, EF 35-40 percent from underlying coronary artery disease. 6. Hypertensive heart disease. 7. Paroxysmal atrial fibrillation currently in sinus rhythm. 8. Essential hypertension. 9. Primary osteoarthritis. 10.Chronic occlusion of the right internal carotid artery and 80% occlusion of the left internal carotid artery. 11.Severe chronic obstructive pulmonary disease. 12.Peripheral artery disease. 13.Chronic venous insufficiency lower extremity. 14.Hypercalcemia. Patient with known hyperparathyroidism. 15.Bilateral lower extremity venous wounds growing Pseudomonas and Citrobacter for which patient on ciprofloxacin. PLAN: Continue current medication and treatment plan. Keep a close eye on the hemoglobin. The patient is due for EGD tomorrow by Gastroenterology. MMODL / IJN: [id number] /
[2018-09-24 05:59] LABS: Glucose,Whole Blood 95 mg/dL (75-99)
[2018-09-24 06:22] LABS: Anisocytosis Moderate; Basophils % (A) 0 %; Eosinophils # (A) 0.2 k/uL (0-0.7); Eosinophils % (A) 2 %; HCT 25.6 % (34.0-46.0); HGB 7.6 gm/dL (11.4-16.0); Hypochromasia Marked; Lymphocytes # (A) 0.8 k/uL (1.0-4.8); Lymphocytes % (A) 8 %; MCH 26.9 pg (25.0-35.0); MCHC 29.6 g/dL (31.0-37.0); MCV 90.6 fL (80.0-100.0); Macrocytosis Slight; Monocytes # (A) 0.5 k/uL (0-1.0); Monocytes % (A) 5 %; Neutrophils # (A) 8.6 k/uL (1.3-7.7); Neutrophils % (A) 84 %; Platelet Count 224 k/uL (150-450); Poikilocytosis Moderate; RBC 2.83 m/uL (3.80-5.40); RDW 22.9 % (11.5-15.5); WBC 10.2 k/uL (3.8-10.6)
[2018-09-24] MEDS: SODIUM CHLORIDE 0.9% 1,000 ML IV SCH ×2 (06:22→17:24)
[2018-09-24] MEDS: FUROSEMIDE 20 MG TAB PO SCH ×2 (06:28→15:10)
[2018-09-24] MEDS: CINACALCET 30 MG TAB PO SCH ×2 (07:56→17:34)
[2018-09-24] MEDS: CIPROFLOXACIN HCL 500 MG TAB PO SCH ×2 (07:56→20:30)
[2018-09-24] MEDS: METOPROLOL TARTRATE 12.5 MG TAB PO SCH ×2 (07:56→17:34)
[2018-09-24] MEDS: PANTOPRAZOLE 40 MG/10 ML VIAL IV SCH ×2 (07:57→20:30)
--- NOTE | 2018-09-24 08:36 | P.PN ---
Subjective Progress Note Date: 09/24/18 Principal diagnosis: Acute blood loss anemia, possible gastrointestinal bleed with positive occult blood, status post red blood cell transfusion. Previous medical history of multivessel coronary artery disease with left main disease and recent non-STEMI, status post off-pump coronary artery bypass surgery 08/23/18, chronic systolic heart failure, chronic atrial fibrillation on Eliquis for anticoagulation, hypertension, hyperlipidemia, morbid obesity, peripheral vascular disease, bilateral carotid artery stenosis, right totally occluded, left 80% stenosis, previous tobacco dependence, severe restrictive lung disease with recent FEV1 47% of predicted, chronic normocytic anemia, osteoarthritis, hyperparathyroidism and lower extremity wounds positive for pseudomonas and citrobacter pre- admission currently on antibiotic treatment. The patient is currently sitting up in the recliner in no acute distress. She is currently NPO for EGD today. Patient requires much encouragement to do anything. She did get into the shower yesterday and is about to get into the shower again today. She denies pain, shortness of breath. No new complaints. Objective - Vital Signs Vital signs: Vital Signs Temp 97.5 F L 09/24/18 04:00 Pulse 66 09/24/18 04:00 Resp 20 09/24/18 04:00 BP 114/72 09/24/18 04:00 Pulse Ox 97 09/24/18 04:00 Intake & Output 09/23/18 09/24/18 09/24/18 18:59 06:59 18:59 Intake Total 840 550 Output Total 200 Balance 840 350 Weight 116.5 kg Intake: Oral 840 550 Output: Urine 200 Other: Voiding Method Bedside Commode Bedside Commode # Voids 2 1 - Constitutional General appearance: Present: morbidly obese, no acute distress - Respiratory Details: Lungs sounds clear bilaterally. Respirations even, nonlabored. Currently on room air with oxygen saturation 97%. Only able to achieve 500 mL on her incentive spirometry. - Cardiovascular Details: S1, S2 present. Irregular rate and rhythm, controlled atrial fibrillation on telemetry. Sternum stable. Palpable pulses peripherally. Bilateral lower extremity edema present. No calf pain or tenderness noted. - Gastrointestinal Gastrointestinal Comment(s): Abdomen soft, non-tender, non-distended, obese. Active bowel sounds x 4 quadrants. Currently NPO for EGD, was on clear liquids yesterday which she tolerated well. Stools x 2 yesterday described as soft and green per nursing. - Genitourinary Genitourinary Comment(s): Voiding on bedside commode. - Integumentary Integumentary Comment(s): Anterior chest incision well approximated without drainage. Bilateral lower extremities with multiple wounds present, all appear to be scabbed over with no current drainage, was radha-wrapped. - Neurologic Neurologic: Present: CNII-XII intact - Musculoskeletal Musculoskeletal: Present: generalized weakness, strength equal bilaterally - Psychiatric Psychiatric: Present: A&O x's 3, appropriate affect - Allied health notes Allied health notes reviewed: nursing - Labs CBC & Chem 7: 09/24/18 05:50 09/21/18 14:50 Labs: Abnormal Lab Results - Last 24 Hours (Table) 09/24/18 Range/Units 05:50 RBC 2.83 L (3.80-5.40) m/uL Hgb 7.6 L (11.4-16.0) gm/dL Hct 25.6 L (34.0-46.0) % MCHC 29.6 L (31.0-37.0) g/dL RDW 22.9 H (11.5-15.5) % Neutrophils # 8.6 H (1.3-7.7) k/uL Lymphocytes # 0.8 L (1.0-4.8) k/uL Assessment and Plan Assessment: 1. Acute blood loss anemia, possible gastrointestinal bleed with positive o ccult blood, status post red blood cell transfusion 2. Multivessel coronary artery disease with left main disease and recent non- STEMI, status post off-pump coronary artery bypass surgery 3. Chronic systolic heart failure 4. Chronic atrial fibrillation on Eliquis for anticoagulation 5. Hypertension 6. Hyperlipidemia 7. Morbid obesity 8. Peripheral vascular disease 9. Bilateral carotid artery stenosis, right totally occluded, left 80% stenosis 10. Previous tobacco dependence, severe restrictive lung disease with recent FEV1 47% of predicted 11. Chronic normocytic anemia 12. Osteoarthritis 13. Hyperparathyroidism 14. Pre-admission lower extremity wounds infected with pseudomonas and citrobacter, currently on antibiotics Plan: 1. Continue current medication therapy. Aspirin, Eliquis on hold, await GI recommendations for resuming meds due to chronic afib. 2. Patient scheduled for EGD today, await results. 3. Will monitor labs, transfusion per GI service. 4. Encourage incentive spirometry 10 times every hour while awake. 5. Patient needs to shower daily, radha wrap bilateral lower extremities. 6. Increase activity, ambulate as tolerated. Up in chair for all meals. PT/OT following. 7. Continued medical management per primary care service. 8. Will continue to monitor and make recommendations as necessary. Time with Patient: Greater than 30
[2018-09-24 11:28] LABS: Glucose,Whole Blood 85 mg/dL (75-99)
[2018-09-24] MEDS ORDERED: PROPOFOL 10 MG/ML 20 ML VIAL IV ONE (13:38)
[2018-09-24] MEDS ORDERED: IV FLUID CONTINUATION 1,000 ML IV ONE (13:38)
[2018-09-24] MEDS ORDERED: LIDOCAINE 1% INJ 10MG/ML (20 ML MDV) ONE (13:38)
--- NOTE | 2018-09-24 14:02 | P.PCN ---
Date of Procedure: 09/24/18 Description of Procedure: BRIEF HISTORY: 67-year-old female with a medical history significant for atrial fibrillation, congestive heart failure, central hypertension, coronary artery disease status post coronary artery bypass on August 23 who presented with complaints of anemia and dark stool. Patient was found to have hemoglobin of 6.6 on presentation down from her discharge hemoglobin of 7.9. She reports dark stool since leaving the hospital. She does not believe she has been on any nonsteroidal anti- inflammatory drugs. She denies any prior history of ulcer. She denies any prior EGD and has a remote history of colonoscopy. Patient reports a remote history of anemia in the past. She is denying any abdominal pain at this time and tolerating diet. The patient had been on Eliquis therapy which is currently being held. Hemoglobin found to be 7.7 after 2 units of PRBCs. PROCEDURE PERFORMED: Esophagogastroduodenoscopy. PREOPERATIVE DIAGNOSIS: Iron deficiency anemia. ESTIMATED BLOOD LOSS: Minimal. IV sedation per anesthesia. PROCEDURE: After informed consent was obtained, the patient was brought into the endoscopy unit. IV sedation was administered by Anesthesia under continuous monitoring. Initially the Olympus GIF-190 video endoscope was inserted into the mouth. Esophagus intubated without any difficulty. It was gradually advanced into the stomach and duodenum and carefully examined. The bulb and the second part of the duodenum appeared normal. The scope at this time was withdrawn to the stomach, adequately insufflated with air, and upon careful examination, mucosa of the antrum, body, cardia and the fundus appeared normal, except for some mild scattered erythema in the antrum and body suggestive of mild gastritis. The scope was then withdrawn into the esophagus. The GE junction was located at 41 cm from the incisors. The esophagus appeared normal. There were no erosions or ulcerations seen and the patient tolerated the procedure well. IMPRESSION: 1. No old blood, active bleeding or pathology to explain anemia. 2. Mild gastritis, biopsies not taken in the setting of anticoagulation. RECOMMENDATIONS: The findings of this examination were discussed with the patient. Okay for cardiac diet. Extensive discussion with the patient prior to the procedure about further endoscopic evaluation if upper endoscopy did not yield finding to explain anemia in the patient's is unwilling to prep for a colonoscopy at this time. Video capsule endoscopy will therefore order sedation to rule out any small bowel etiology of bleeding. Okay to resume anticoagulation and monitor hemoglobin.
[2018-09-24 16:55] LABS: Glucose,Whole Blood 85 mg/dL (75-99)
[2018-09-24] MEDS ORDERED: MAGNESIUM CITRATE 296 ML BOTTLE PO ONE (17:00)
[2018-09-24] MEDS: CHOLECALCIFEROL 1,000 UNIT TAB PO SCH (17:34)
[2018-09-24] MEDS: POTASSIUM CHLORIDE ER 20 MEQ TAB.ER PO SCH (17:34)
[2018-09-24] MEDS: ATORVASTATIN 80 MG TAB PO SCH (20:30)
[2018-09-24 20:38] LABS: Glucose,Whole Blood 90 mg/dL (75-99)
--- NOTE | 2018-09-25 05:45 | PN ---
PROGRESS NOTE DATE OF SERVICE: 09/24/2018 PRESENTING COMPLAINT: Dark stools. INTERVAL HISTORY: The patient presents with GI bleed, on blood thinners following recent CABG. The patient did get 2 units of blood. I saw this patient earlier today. The patient is due to go for EGD. The patient is also on ciprofloxacin lower extremity wounds. Otherwise patient is stable. REVIEW OF SYSTEMS: Done for constitutional, cardiovascular, GI, pulmonary; relevant findings as above. CURRENT MEDICATIONS: Current medications are reviewed. PHYSICAL EXAMINATION: On examination, temperature 97.4, pulse 58, respiration 18, blood pressure 118/58, pulse ox 96% on room air. GENERAL APPEARANCE: Sitting up, awake. EYES: Pupils equal. Conjunctivae pale. NECK: JVD unable to assess. Mass not palpable. RESPIRATORY: Effort increased. LUNGS: Decreased breath sounds. CARDIOVASCULAR: First and second sounds normal. Edema present. ABDOMEN: Soft, nontender. Liver and spleen not palpable. PSYCHIATRY: Alert and oriented x3. Mood and affect normal. Lower extremity wounds are present. INVESTIGATIONS: White count 10.2, hemoglobin 7.6. ASSESSMENT: 1. Acute gastrointestinal bleed in a patient on Eliquis. 2. Acute severe blood loss anemia causing hypotension. Patient did require 2 units of blood. 3. Coronary artery disease with bypass recently. 4. Coronary artery disease with prior history of bypass and stent. 5. Chronic congestive heart failure from systolic dysfunction ejection fraction 35% to 40% from underlying coronary artery disease. 6. Hypertensive heart disease. 7. Paroxysmal atrial fibrillation, currently in sinus rhythm. 8. Essential hypertension. 9. Primary osteoarthritis. 10.Chronic occlusion of the right internal carotid artery and 80% occlusion of the left internal carotid artery. 11.Severe chronic obstructive pulmonary disease. 12.Peripheral arterial disease. 13.Chronic venous insufficiency lower extremity. 14.Hypercalcemia. Patient with known hyperparathyroidism. 15.Bilateral lower extremity venous wounds from Pseudomonas and Citrobacter. PLAN: Patient later in the afternoon did undergo EGD that showed some element of gastritis. Per Dr. Lowe patient can be resumed on the blood thinners. He is also planning to do a small bowel capsule endoscopy. Will give more blood transfusion if patient becomes hypotensive or symptomatic. MMODL / IJN: [id number] /
[2018-09-25] MEDS: FUROSEMIDE 20 MG TAB PO SCH ×2 (06:05→12:08)
[2018-09-25 06:34] LABS: Glucose,Whole Blood 74 mg/dL (75-99)
[2018-09-25 06:55] LABS: Anisocytosis Moderate; Basophils % (A) 0 %; Eosinophils # (A) 0.2 k/uL (0-0.7); Eosinophils % (A) 2 %; HCT 26.5 % (34.0-46.0); HGB 7.9 gm/dL (11.4-16.0); Hypochromasia Moderate; Lymphocytes # (A) 0.9 k/uL (1.0-4.8); Lymphocytes % (A) 9 %; MCH 26.9 pg (25.0-35.0); MCV 89.6 fL (80.0-100.0); Macrocytosis Slight; Mean Platelet Volume 9.7; Monocytes # (A) 0.6 k/uL (0-1.0); Monocytes % (A) 6 %; Neutrophils # (A) 8.2 k/uL (1.3-7.7); Neutrophils % (A) 83 %; Platelet Count 230 k/uL (150-450); Poikilocytosis Moderate; RBC 2.96 m/uL (3.80-5.40); RDW 22.9 % (11.5-15.5); WBC 9.9 k/uL (3.8-10.6)
--- NOTE | 2018-09-25 08:57 | P.PN ---
Subjective Progress Note Date: 09/25/18 Principal diagnosis: Acute blood loss anemia, possible gastrointestinal bleed with positive occult blood, status post red blood cell transfusion. Previous medical history of multivessel coronary artery disease with left main disease and recent non-STEMI, status post off-pump coronary artery bypass surgery 08/23/18, chronic systolic heart failure, chronic atrial fibrillation on Eliquis for anticoagulation, hypertension, hyperlipidemia, morbid obesity, peripheral vascular disease, bilateral carotid artery stenosis, right totally occluded, left 80% stenosis, previous tobacco dependence, severe restrictive lung disease with recent FEV1 47% of predicted, chronic normocytic anemia, osteoarthritis, hyperparathyroidism and lower extremity wounds positive for pseudomonas and citrobacter pre- admission currently on antibiotic treatment. The patient is currently sitting up in the recliner in no acute distress. She denies pain, shortness of breath. Patient continues to require much encouragement to do anything, knees buckled yesterday with ambulation requiring 4 person assistance. She did shower yesterday. She complains about the radha- wraps on her legs and asks if they can be removed at night so she can sleep, otherwise no new complaints. EGD completed yesterday showing mild gastritis, no active upper GI bleed. Patient will have capsule study to evaluate lower GI system per Dr. Lowe. Objective - Vital Signs Vital signs: Vital Signs Temp 97.5 F L 09/25/18 03:59 Pulse 71 09/25/18 03:59 Resp 18 09/25/18 03:59 BP 120/66 09/25/18 03:59 Pulse Ox 95 09/25/18 03:59 Intake & Output 09/24/18 09/25/18 09/25/18 18:59 06:59 18:59 Intake Total 371 250 Balance 371 250 Weight 115.2 kg Intake: IV 75 Oral 296 250 Other: Voiding Method Bedside Commode Bedside Commode # Voids 2 3 # Bowel Movements 1 - Constitutional General appearance: Present: cooperative, morbidly obese, no acute distress - Respiratory Details: Lungs sounds clear bilaterally. Respirations even, nonlabored. Currently on room air with oxygen saturation 95%. Only able to achieve 750 mL on her incentive spirometry. - Cardiovascular Details: S1, S2 present. Irregular rate and rhythm, controlled atrial fibrillation on telemetry. Sternum stable. Palpable pulses peripherally. Bilateral lower extremity edema present. No calf pain or tenderness noted. - Gastrointestinal Gastrointestinal Comment(s): Abdomen soft, non-tender, non-distended, obese. Active bowel sounds x 4 quadrants. Tolerated clear liquids yesterday after her procedure yesterday. Currently NPO for capsule study. - Genitourinary Genitourinary Comment(s): Voiding on bedside commode. - Integumentary Integumentary Comment(s): Anterior chest incision well approximated without drainage. Bilateral lower extremities with multiple wounds present, all appear to be scabbed over with no current drainage, radha-wrapped. - Neurologic Neurologic: Present: CNII-XII intact - Musculoskeletal Musculoskeletal: Present: generalized weakness, strength equal bilaterally - Psychiatric Psychiatric: Present: A&O x's 3, appropriate affect - Allied health notes Allied health notes reviewed: nursing - Labs CBC & Chem 7: 09/25/18 06:04 09/21/18 14:50 Labs: Abnormal Lab Results - Last 24 Hours (Table) 09/25/18 09/25/18 Range/Units 06:04 06:33 RBC 2.96 L (3.80-5.40) m/uL Hgb 7.9 L (11.4-16.0) gm/dL Hct 26.5 L (34.0-46.0) % MCHC 30.0 L (31.0-37.0) g/dL RDW 22.9 H (11.5-15.5) % Neutrophils # 8.2 H (1.3-7.7) k/uL Lymphocytes # 0.9 L (1.0-4.8) k/uL POC Glucose (mg/dL) 74 L (75-99) mg/dL Assessment and Plan Assessment: 1. Acute blood loss anemia, possible gastrointestinal bleed with positive occult blood, status post red blood cell transfusion, mild gastritis with no active upper GI bleed 2. Multivessel coronary artery disease with left main disease and recent non- STEMI, status post off-pump coronary artery bypass surgery 3. Chronic systolic heart failure 4. Chronic atrial fibrillation on Eliquis for anticoagulation 5. Hypertension 6. Hyperlipidemia 7. Morbid obesity 8. Peripheral vascular disease 9. Bilateral carotid artery stenosis, right totally occluded, left 80% stenosis 10. Previous tobacco dependence, severe restrictive lung disease with recent FEV1 47% of predicted 11. Chronic normocytic anemia 12. Osteoarthritis 13. Hyperparathyroidism 14. Pre-admission lower extremity wounds infected with pseudomonas and citrobacter, currently on antibiotics Plan: 1. Continue current medication therapy. Aspirin, Eliquis restarted. 2. EGD completed yesterday, patient scheduled for capsule study today, await results. 3. Will monitor labs, transfusion per GI service. 4. Encourage incentive spirometry 10 times every hour while awake. 5. Patient needs to shower daily, radha wrap bilateral lower extremities. 6. Increase activity, ambulate as tolerated. Up in chair for all meals. PT/OT following. 7. Continued medical management per primary care service. 8. Will continue to monitor and make recommendations as necessary. 9. From cardiothoracic surgery standpoint, patient may be transferred back to [facility] for further physical and occupational therapy needs once OK with GI and primary care. Time with Patient: Greater than 30
[2018-09-25 12:06] LABS: Glucose,Whole Blood 80 mg/dL (75-99)
[2018-09-25] MEDS: PANTOPRAZOLE 40 MG/10 ML VIAL IV SCH ×2 (12:07→20:02)
[2018-09-25] MEDS: CINACALCET 30 MG TAB PO SCH ×2 (12:08→18:45)
[2018-09-25] MEDS: METOPROLOL TARTRATE 12.5 MG TAB PO SCH ×2 (12:08→18:45)
[2018-09-25] MEDS: CIPROFLOXACIN HCL 500 MG TAB PO SCH ×2 (12:08→20:01)
[2018-09-25] MEDS: APIXABAN 5 MG TAB PO SCH ×2 (12:08→20:02)
[2018-09-25] MEDS: ASPIRIN 81 MG PO SCH (12:08)
[2018-09-25] MEDS ORDERED: SIMETHICONE 40 MG/0.6 ML DROPS 2,000 MG/30 ML BOTTLE PO ONE (13:18)
[2018-09-25 17:30] LABS: Glucose,Whole Blood 73 mg/dL (75-99)
[2018-09-25] MEDS: POTASSIUM CHLORIDE ER 20 MEQ TAB.ER PO SCH (18:45)
[2018-09-25] MEDS: CHOLECALCIFEROL 1,000 UNIT TAB PO SCH (18:45)
[2018-09-25] MEDS: ATORVASTATIN 80 MG TAB PO SCH (20:02)
[2018-09-25] MEDS: SODIUM CHLORIDE 0.9% 1,000 ML IV SCH ×2 (20:03→20:45)
[2018-09-25 21:07] LABS: Glucose,Whole Blood 83 mg/dL (75-99)
[2018-09-26 00:18] VITALS: RESP 16
[2018-09-26 03:44] VITALS: TEMP 97.9
[2018-09-26 05:53] LABS: Glucose,Whole Blood 79 mg/dL (75-99)
[2018-09-26] MEDS: FUROSEMIDE 20 MG TAB PO SCH ×2 (06:15→13:41)
[2018-09-26 07:00] LABS: Anisocytosis Moderate; Basophils % (A) 0 %; Eosinophils # (A) 0.1 k/uL (0-0.7); Eosinophils % (A) 1 %; HCT 24.7 % (34.0-46.0); HGB 7.5 gm/dL (11.4-16.0); Hypochromasia Marked; Lymphocytes # (A) 0.8 k/uL (1.0-4.8); Lymphocytes % (A) 10 %; MCH 28.2 pg (25.0-35.0); MCHC 30.3 g/dL (31.0-37.0); MCV 93.1 fL (80.0-100.0); Macrocytosis Slight; Mean Platelet Volume 9.4; Monocytes # (A) 0.5 k/uL (0-1.0); Monocytes % (A) 5 %; Neutrophils # (A) 6.8 k/uL (1.3-7.7); Neutrophils % (A) 82 %; Platelet Count 200 k/uL (150-450); Poikilocytosis Moderate; RBC 2.65 m/uL (3.80-5.40); RDW 22.9 % (11.5-15.5); WBC 8.3 k/uL (3.8-10.6)
--- NOTE | 2018-09-26 07:53 | PN ---
PROGRESS NOTE DATE OF SERVICE: 09/25/2018 PRESENTING COMPLAINT: Dark stool. INTERVAL HISTORY: Patient has a GI bleed on blood test following recent CABG. Did receive 2 units of blood, status post EGD that was nonspecific. The patient today is due to get a small bowel capsule study. The patient had some more dark stools, feeling tired. Lying in bed. REVIEW OF SYSTEMS: Done for constitutional, cardiovascular, GI, pulmonary; relevant findings as above. CURRENT MEDICATIONS: Reviewed. Blood thinners have been resumed. PHYSICAL EXAMINATION: Temperature 97.4, pulse 56, respiration 18, blood pressure 120/55, pulse ox 97% on room air. GENERAL APPEARANCE: Propped up in bed, tired-appearing eyes: Pupils equal. Conjunctivae pale neck JVD unable to assess. Mass not palpable. RESPIRATORY: Effort increased. LUNGS: Decreased breath sounds. CARDIOVASCULAR: First and second sounds 1st segmental edema present. ABDOMEN: Soft nontender, liver and spleen not palpable. EXTREMITIES: Lower extremity superficial wounds healing. INVESTIGATIONS: White count 9.9, hemoglobin 7.9. Accu-Cheks 74 80, 73 assessment acute GI bleed in a patient on Eliquis and aspirin. EGD showing some gastritis. Small bowel capsule study is being done today. 1. Acute severe blood loss anemia causing hypotension. Patient did get 2 units of blood. 2. Coronary artery with coronary bypass recently. 3. Chronic congestive heart failure from systolic dysfunction, ejection fraction 35% to 40%. 4. Underlying coronary artery disease. 5. Hypertensive heart disease. 6. Paroxysmal atrial fibrillation currently in sinus rhythm. 7. Essential hypertension. 8. Primary osteoarthritis. 9. Chronic occlusion of right internal carotid artery and 80% occlusion of the left internal carotid artery. 10.Severe chronic obstructive pulmonary disease. 11.Peripheral artery disease. 12.Chronic venous insufficiency lower extremity. 13.Hypercalcemia. Patient has known hyperparathyroidism. 14.Bilateral lower extremity venous wounds growing Pseudomonas and Citrobacter. PLAN: Continue current medication and treatment plan. Will await results of the small bowel capsule study. Will proceed from there. Keep a close eye on patient's hemoglobin. MMODL / IJN: [id number] /
[2018-09-26] MEDS: CINACALCET 30 MG TAB PO SCH ×2 (08:50→16:20)
[2018-09-26] MEDS: ASPIRIN 81 MG PO SCH (08:51)
[2018-09-26] MEDS: PANTOPRAZOLE 40 MG/10 ML VIAL IV SCH (08:51)
[2018-09-26] MEDS: METOPROLOL TARTRATE 12.5 MG TAB PO SCH ×2 (08:51→16:20)
[2018-09-26] MEDS: CIPROFLOXACIN HCL 500 MG TAB PO SCH (08:51)
[2018-09-26] MEDS: APIXABAN 5 MG TAB PO SCH (08:51)
[2018-09-26] MEDS ORDERED: FUROSEMIDE 10 MG/ML 2 ML VIAL IV SCH (09:00)
--- NOTE | 2018-09-26 10:03 | P.PN ---
Subjective Progress Note Date: 09/26/18 Principal diagnosis: Acute blood loss anemia, possible gastrointestinal bleed with positive occult blood, status post red blood cell transfusion. Previous medical history of multivessel coronary artery disease with left main disease and recent non-STEMI, status post off-pump coronary artery bypass surgery 08/23/18, chronic systolic heart failure, chronic atrial fibrillation on Eliquis for anticoagulation, hypertension, hyperlipidemia, morbid obesity, peripheral vascular disease, bilateral carotid artery stenosis, right totally occluded, left 80% stenosis, previous tobacco dependence, severe restrictive lung disease with recent FEV1 47% of predicted, chronic normocytic anemia, osteoarthritis, hyperparathyroidism and lower extremity wounds positive for pseudomonas and citrobacter pre- admission currently on antibiotic treatment. POD #2 EGD POD #1 small bowel capsule study The patient is currently sitting up in bed in no acute distress. She denies pain, shortness of breath. Patient continues to require much encouragement to do anything. She did shower yesterday. EGD completed Sunday showing mild gastritis, no active upper GI bleed. Patient had capsule study yesterday to evaluate lower GI system per Dr. Lowe. Objective - Vital Signs Vital signs: Vital Signs Temp 97.9 F 09/26/18 03:43 Pulse 66 09/26/18 03:44 Resp 16 09/26/18 03:44 BP 129/53 09/26/18 03:43 Pulse Ox 95 09/26/18 03:43 Intake & Output 09/25/18 09/26/18 09/26/18 18:59 06:59 18:59 Intake Total 490 Output Total 1250 Balance -760 Weight 115.1 kg Intake: Oral 490 Output: Urine 1250 Other: Voiding Method Toilet Toilet # Voids 1 1 # Bowel Movements 1 - Constitutional General appearance: Present: cooperative, morbidly obese, no acute distress - Respiratory Details: Lungs sounds clear bilaterally. Respirations even, nonlabored. Currently on ro om air with oxygen saturation 95%. Only able to achieve 500-750 mL on her incentive spirometry. - Cardiovascular Details: S1, S2 present. Irregular rate and rhythm, controlled atrial fibrillation on telemetry. Sternum stable. Palpable pulses peripherally. Bilateral lower extremity edema present. No calf pain or tenderness noted. - Gastrointestinal Gastrointestinal Comment(s): Abdomen soft, non-tender, non-distended, obese. Active bowel sounds x 4 quadrants. Tolerated clear liquids. - Genitourinary Genitourinary Comment(s): Voiding on bedside commode. - Integumentary Integumentary Comment(s): Anterior chest incision well approximated without drainage. Bilateral lower extremities with multiple wounds present, all appear to be scabbed over with no current drainage, radha-wrapped. - Neurologic Neurologic: Present: CNII-XII intact - Musculoskeletal Musculoskeletal: Present: generalized weakness, strength equal bilaterally - Psychiatric Psychiatric: Present: A&O x's 3, appropriate affect, intact judgment & insight - Allied health notes Allied health notes reviewed: nursing - Labs CBC & Chem 7: 09/26/18 06:39 09/21/18 14:50 Labs: Abnormal Lab Results - Last 24 Hours (Table) 09/25/18 09/26/18 Range/Units 17:18 06:39 RBC 2.65 L (3.80-5.40) m/uL Hgb 7.5 L (11.4-16.0) gm/dL Hct 24.7 L (34.0-46.0) % MCHC 30.3 L (31.0-37.0) g/dL RDW 22.9 H (11.5-15.5) % Lymphocytes # 0.8 L (1.0-4.8) k/uL POC Glucose (mg/dL) 73 L (75-99) mg/dL Assessment and Plan Assessment: 1. Acute blood loss anemia, status post red blood cell transfusion, mild gastritis with no active upper GI bleed per EGD, capsule study pending 2. Multivessel coronary artery disease with left main disease and recent non- STEMI, status post off-pump coronary artery bypass surgery 3. Chronic systolic heart failure 4. Chronic atrial fibrillation on Eliquis for anticoagulation 5. Hypertension 6. Hyperlipidemia 7. Morbid obesity 8. Peripheral vascular disease 9. Bilateral carotid artery stenosis, right totally occluded, left 80% stenosis 10. Previous tobacco dependence, severe restrictive lung disease with recent FEV1 47% of predicted 11. Chronic normocytic anemia 12. Osteoarthritis 13. Hyperparathyroidism 14. Pre-admission lower extremity wounds infected with pseudomonas and citrobacter, currently on antibiotics Plan: 1. Continue current medication therapy. Aspirin, Eliquis restarted. 2. EGD completed, capsule study completed, await results. 3. Will monitor labs, transfusion per GI service. 4. Encourage incentive spirometry 10 times every hour while awake. 5. Patient needs to shower daily, radha wrap bilateral lower extremities. 6. Increase activity, ambulate as tolerated. Up in chair for all meals. PT/OT following. 7. Continued medical management per primary care service. 8. Will continue to monitor and make recommendations as necessary. 9. From cardiothoracic surgery standpoint, patient may be transferred back to [facility] for further physical and occupational therapy needs once OK with GI and primary care. Time with Patient: Greater than 30
[2018-09-26 11:47] LABS: Glucose,Whole Blood 85 mg/dL (75-99)
--- NOTE | 2018-09-26 14:41 | P.PN ---
Subjective Progress Note Date: 09/26/18 Principal diagnosis: Anemia Hemoglobin 7.5. Video capsule study negative for GI bleed or bleeding sources. Objective - Vital Signs Vital signs: Vital Signs Temp 97.9 F 09/26/18 03:43 Pulse 79 09/26/18 08:00 Resp 16 09/26/18 08:00 BP 116/75 09/26/18 08:00 Pulse Ox 97 09/26/18 08:00 Intake & Output 09/25/18 09/26/18 09/26/18 18:59 06:59 18:59 Intake Total 490 500 Output Total 1250 Balance -760 500 Weight 115.1 kg Intake: Oral 490 500 Output: Urine 1250 Other: Voiding Method Toilet Toilet Toilet # Voids 1 1 1 # Bowel Movements 1 - Exam General appearance: The patient is alert, oriented, in no acute distress. HET: Head is normocephalic and atraumatic. Pupils are equal and reactive. Oropharynx is clear without lesions. Neck: Supple without lymphadenopathy. Trachea midline. Heart: S1 S2. Regular rate and rhythm. Lungs: No crackles or wheezes are heard. Abdomen: Soft, nontender, nondistended with bowel sounds. No peritoneal signs. No palpable organomegaly or masses. Extremities: Normal skin color and turgor. No cyanosis, rash, ulceration, clubbing, or edema. Radial and pedal pulses are 2/4 bilaterally. Neurological: No focal deficits. Strength and sensation are grossly intact. - Labs CBC & Chem 7: 09/26/18 06:39 09/21/18 14:50 Labs: Abnormal Lab Results - Last 24 Hours (Table) 09/25/18 09/26/18 Range/Units 17:18 06:39 RBC 2.65 L (3.80-5.40) m/uL Hgb 7.5 L (11.4-16.0) gm/dL Hct 24.7 L (34.0-46.0) % MCHC 30.3 L (31.0-37.0) g/dL RDW 22.9 H (11.5-15.5) % Lymphocytes # 0.8 L (1.0-4.8) k/uL POC Glucose (mg/dL) 73 L (75-99) mg/dL Assessment and Plan (1) Blood loss anemia Narrative/Plan: Iron deficiency anemia etiology unclear status post EGD no old blood active bleeding or pathology to explain anemia. Small bowel capsule endoscopy completed no evidence of GI bleed or bleeding sources. Patient was offered inpatient colonoscopy for further evaluation for anemia at this time she declines. Presently no active GI bleeding hemoglobin 7.5. Anticoagulation restarted. Current Visit: Yes Status: Acute Code(s): D50.0 - IRON DEFICIENCY ANEMIA SECONDARY TO BLOOD LOSS (CHRONIC) SNOMED Code(s): 241192018 (2) Melena Current Visit: Yes Status: Acute Code(s): K92.1 - MELENA SNOMED Code(s): 2151281 Plan: 1. No further workup from a GI standpoint. Advised to return to office in 3-4 weeks for reevaluation and discussion of outpatient colonoscopy. Continue monitor CBC. Assessment and plan a care discussed with Dr. Lowe
--- NOTE | 2018-09-26 15:50 | DS ---
DISCHARGE SUMMARY DATE OF ADMISSION: 09/21/2018 DATE OF DISCHARGE: 09/26/2018 FINAL DIAGNOSES: 1. Acute gastrointestinal bleed, exact source determined. 2. Acute severe blood loss anemia causing hypotension. Patient did require 2 units of blood. 3. Coronary artery bypass recently. 4. Coronary artery disease with prior history of bypass and stent. 5. Chronic congestive heart failure from systolic dysfunction, ejection fraction 35% to 40%, from underlying coronary artery disease. 6. Hypertensive heart disease. 7. Paroxysmal atrial fibrillation, currently in sinus rhythm. 8. Essential hypertension. 9. Primary osteoarthritis. 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 11.Severe chronic obstructive pulmonary disease. 12.Peripheral arterial disease. 13.Chronic venous insufficiency of lower extremity. 14.Hypercalcemia in a patient with known hyperparathyroidism. 15.Lower extremity wounds, probably from venous insufficiency, present on admission. CONSULTATIONS: 1. Dr. Lowe from GI. 2. Dr. Bustos from General Surgery. HOSPITAL COURSE: This is a very pleasant lady who follows with visiting physician Dr. Saunders. She underwent a coronary artery bypass on August 23 and discharged on August 28. She went to the [facility], presented with dark stools. Patient did undergo EGD and also did undergo a capsule study. Hemoglobin had dropped down to 6.3. Did get 2 units of blood. Now feeling much better. No further GI bleed. I did talk to Kelly today from GI. Discussed the case. Patient is stable to go back. Also discussed with the patient. She is overall feeling better. The patient is on Cipro for wounds on lower extremity to complete the course from before. Discussion and discharge planning more than 35 minutes. PHYSICAL EXAMINATION: Temperature 97.9, pulse 64, respiration 16, blood pressure 116/75, pulse ox 97% on room air. LUNGS: Fair air entry. Lower extremity wounds are healing well. Hemoglobin is 7.5. DISCHARGE MEDICATIONS: 1. Eliquis 5 mg b.i.d. 2. Vitamin D3 2000 units p.o. daily. 3. Tylenol 650 mg q.6 p.r.n. 4. Milk of Magnesia 2400 mg daily p.r.n. 5. Aspirin 81 mg p.o. daily. 6. Lipitor 80 mg p.o. at bedtime. 7. Cepacol q.2 p.r.n. 8. Dulcolax 10 mg rectally daily p.r.n. 9. Sensipar 60 mg b.i.d. 10.Cipro 500 mg p.o. q.12; complete course. 11.Lasix 20 mg b.i.d. 12.NovoLog per scale. 13.DuoNeb q.4 p.r.n. 14.Lopressor 12.5 b.i.d. 15.Adult Fleet p.r.n. 16.Protonix 40 mg p.o. daily. 17.Potassium 20 mEq p.o. daily. 18.ProStat 30 mL p.o. daily. 19.Senokot-S 2 tablets p.o. at bedtime p.r.n. 20.Sodium bicarb 650 mg p.o. b.i.d. DISPOSITION: [facility]. Follow up with Dr. Palm on 10/31/2018. Follow up with Dr. Howard on 09/27/2018. Patient to complete antibiotic as from before. Follow up with [facility] after discharge from the [facility]. MMODL / IJN: [id number] /
[2018-09-26] MEDS: POTASSIUM CHLORIDE ER 20 MEQ TAB.ER PO SCH (16:20)
[2018-09-26] MEDS: CHOLECALCIFEROL 1,000 UNIT TAB PO SCH (16:20)
[2018-09-26 16:43] LABS: Glucose,Whole Blood 84 mg/dL (75-99)
[2018-09-26 17:00] VITALS: BP 127/56; PULSE 64
== END 2018-09-26 18:15 | DRG 378 ==
LOC: EC 13:58 → 3SCARD 16:12
PROVIDERS: ADMIT Hospitalist; ATTEND Hospitalist
PROC: 30233N1 Transfusion of Nonautologous Red Blood Cells into Peripheral Vein, Percutaneous Approach (ICD-10-PCS; 2018-09-21)
PROC: 0DJ08ZZ Inspection of Upper Intestinal Tract, Via Natural or Artificial Opening Endoscopic (ICD-10-PCS; principal; 2018-09-24 07:30)
DX: K92.1 Melena (principal); D62 Acute posthemorrhagic anemia; Z68.43 Body mass index [BMI] 50.0-59.9, adult; I50.22 Chronic systolic (congestive) heart failure; D69.6 Thrombocytopenia, unspecified; E66.01 Morbid (severe) obesity due to excess calories; E78.5 Hyperlipidemia, unspecified; I11.0 Hypertensive heart disease with heart failure; M19.91 Primary osteoarthritis, unspecified site; D72.829 Elevated white blood cell count, unspecified; E21.3 Hyperparathyroidism, unspecified; I87.2 Venous insufficiency (chronic) (peripheral); I73.9 Peripheral vascular disease, unspecified; I65.23 Occlusion and stenosis of bilateral carotid arteries; K29.70 Gastritis, unspecified, without bleeding; J44.9 Chronic obstructive pulmonary disease, unspecified; I25.10 Atherosclerotic heart disease of native coronary artery without angina pectoris; Z96.653 Presence of artificial knee joint, bilateral; I48.2 Chronic atrial fibrillation; B96.5 Pseudomonas (aeruginosa) (mallei) (pseudomallei) as the cause of diseases classified elsewhere; B96.89 Other specified bacterial agents as the cause of diseases classified elsewhere; Z95.5 Presence of coronary angioplasty implant and graft; Z95.1 Presence of aortocoronary bypass graft; Z90.710 Acquired absence of both cervix and uterus; Z87.891 Personal history of nicotine dependence; Z85.42 Personal history of malignant neoplasm of other parts of uterus; Z79.899 Other long term (current) drug therapy; Z79.82 Long term (current) use of aspirin; Z79.01 Long term (current) use of anticoagulants; I25.2 Old myocardial infarction; Z98.42 Cataract extraction status, left eye
CPT/HCPCS: 36415; 43235; 71046; 80053; 82272; 83605; 83735; 85025; 85610; 86850; 86900; 86901; 86920; 91110; 93005; 96374; 99285

== ENCOUNTER 2018-10-02 14:03 | Inpatient (IN) | payer MEDICARE, OTHER ==
--- NOTE | 2018-10-02 14:34 | ED ---
General Adult HPI - General Chief complaint: Recheck/Abnormal Lab/Rx Stated complaint: low hemoglobin Time Seen by Provider: 10/02/18 14:19 Source: patient, EMS Mode of arrival: EMS Limitations: no limitations - History of Present Illness Initial comments: Dictation was produced using [employer] dictation software. please excuse any gramma tical, word or spelling errors. Chief Complaint: 67-year-old female presents with low hemoglobin. History of Present Illness:-year-old female she is brought in by EMS from rehab facility. Patient had CABG performed approximately one month ago. She was seen here earlier this month for similar complaint. Patient had anemia. She was admitted at that time for GI bleed. She is given 2 units however no identifiable source was identified. Patient had repeat blood performed today and she was found have a hemoglobin of 6.6. She has no complaints at this time. She denies any back pain, chest pain, shortness of breath. He has any extremity pain. Has any dark tarry stools. The ROS documented in this emergency department record has been reviewed and confirmed by me. Those systems with pertinent positive or negative responses have been documented in the HPI. All other systems are other negative and/or noncontributory. PHYSICAL EXAM: General Impression: Alert and oriented x3, not in acute distress HEENT: Normocephalic atraumatic, extra-ocular movements intact, pupils equal and reactive to light bilaterally, mucous membranes moist. Cardiovascular: Heart regular rate and rhythm, S1&S2 audible, no murmurs, rubs or gallops Chest: Lungs clear to auscultation bilaterally, no rhonchi, no wheeze, no rales Abdomen: Bowel sounds present, abdomen soft, non-tender, non-distended, no organomegaly Musculoskeletal: Pulses present and equal in all extremities, no peripheral alfonso ma Motor: no focal deficits noted Neurological: CN II-XII grossly intact, no focal motor or sensory deficits noted Skin: Intact with no visualized rashes Psych: Normal affect and mood ED course: 67-year-old female presents with abnormal outpatient lab. She did have a hemoglobin of 6.6. Vital signs upon arrival are within acceptable limits. Patient did have black tarry stools on rectal examination. Pending occult blood stool test.Laboratory evaluation was confirmed. Patient is heme global 6.7. Findings to suggest acute blood loss anemia. However Bolick panel shows slightly elevated renal markers. Troponin 0.054 likely secondary to type II RI due to anemia. Stool occult blood is positive. Patient given 80 mg of IV Protonix placed. Patient admitted discussed patient case with Dr. Bates has not with GI consultation. This point there is no other clear source of bleeding based on physical examination. Transfusion of PRBCs. - Related Data Home Medications Medication Instructions Recorded Confirmed Apixaban [Eliquis] 5 mg PO BID@0800,1700 10/27/17 10/02/18 Cholecalciferol (Vitamin D3) 2,000 unit PO DAILY@17008/15/18 10/02/18 [Vitamin D3] Aspirin [Adult Low Dose Aspirin EC] 81 mg PO DAILY@17009/21/18 10/02/18 Atorvastatin [Lipitor] 80 mg PO HS@2100 09/21/18 10/02/18 Benzocaine/Menthol Lozeng [Cepacol 1 lozenge MUCOUS MEM Q2H PRN 09/21/18 10/02/18 lozenge] Bisacodyl [Dulcolax] 10 mg RECTAL DAILY PRN 09/21/18 10/02/18 Cinacalcet [Sensipar] 60 mg PO BID@0800,1700 09/21/18 10/02/18 Furosemide [Lasix] 20 mg PO BID@0600,1400 09/21/18 10/02/18 INSULIN ASPART (NovoLOG) [NovoLOG See Protocol SQ ACHS 09/21/18 10/02/18 (formulary)] Ipratropium-Albuterol Nebulize 3 ml INHALATION RT-Q4H PRN 09/21/18 10/02/18 [Duoneb 0.5 mg-3 mg/3 ml Soln] Metoprolol Tartrate [Lopressor] 12.5 mg PO BID@0800,1700 09/21/18 10/02/18 Na Phos,M-B/Na Phos,Di-Ba [Fleet 133 ml RECTAL DAILY PRN 09/21/18 10/02/18 Adult] Pantoprazole [Protonix] 40 mg PO DAILY@0600 09/21/18 10/02/18 Potassium Chloride ER [K-Dur 20] 20 meq PO DAILY@169909/21/18 10/02/18 Sennosides-Docusate Sodium 2 tab PO HS PRN 09/21/18 10/02/18 [Senokot-S] Sodium Bicarbonate Tab 650 mg PO BID@0800,1700 09/21/18 10/02/18 [place] Instant Breakfast 1 packet PO DAILY@0800 10/02/18 10/02/18 Previous Rx's Medication Instructions Recorded Acetaminophen Tab [Tylenol] 650 mg PO Q4HR PRN tab 08/28/18 Magnesium Hydroxide [Milk of 2,400 mg PO DAILY PRN ml 08/28/18 Magnesia Concentrate] Allergies Allergy/AdvReac Type Severity Reaction Status Date / Time No Known Allergies Allergy Verified 10/02/18 14:15 Review of Systems ROS Statement: Those systems with pertinent positive or pertinent negative responses have been documented in the HPI. ROS Other: All systems not noted in ROS Statement are negative. Past Medical History Past Medical History: Atrial Fibrillation, Coronary Artery Disease (CAD), Chest Pain / Angina, COPD, Hyperlipidemia, Hypertension, Myocardial Infarction (non Q- wave), Osteoarthritis (OA), Vascular Disorder Additional Past Medical History / Comment(s): UTERINE CANCER. LT CATARACT, mor bid obesity. Last Myocardial Infarction Date:: 2003 History of Any Multi-Drug Resistant Organisms: None Reported Past Surgical History: Coronary Bypass/CABG, Heart Catheterization With Stent, Hysterectomy, Orthopedic Surgery Additional Past Surgical History / Comment(s): UZMA KNEE REPLACMENTS, RT ANKLE- METAL PLATE, RT ARM SX REPAIR D/T LACERATION. RT THUMB TENDON REPAIR," LT FOOT GREAT TOE BONE REMOVED". Off-pump 3 vessel CABG 08/23/2018 Past Anesthesia/Blood Transfusion Reactions: Blood Transfusion Reaction Additional Past Anesthesia/Blood Transfusion Reaction / Comment(s): PAST BLOOD [id number] Date of Last Stent Placement:: 2003 Past Psychological History: No Psychological Hx Reported Smoking Status: Former smoker Past Alcohol Use History: None Reported Past Drug Use History: None Reported - Past Family History Mother Family Medical History: No Reported History Father History Unknown: Yes General Exam Limitations: no limitations Course Vital Signs 10/02/18 10/02/18 10/02/18 14:05 15:04 15:05 Temperature 97.1 F L Pulse Rate 76 71 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 ] Respiratory 20 18 Rate Blood Pressure 111/50 135/67 O2 Sat by Pulse 100 98 Oximetry Medical Decision Making - Lab Data Result diagrams: 10/02/18 15:17 10/02/18 15:17 Lab Results 10/02/18 10/02/18 10/02/18 Range/Units 14:30 15:17 15:17 WBC 9.7 (3.8-10.6) k/uL RBC 2.43 L (3.80-5.40) m/uL Hgb 6.7 L* (11.4-16.0) gm/dL Hct 21.9 L (34.0-46.0) % MCV 90.0 (80.0-100.0) fL MCH 27.4 (25.0-35.0) pg MCHC 30.5 L (31.0-37.0) g/dL RDW 20.2 H (11.5-15.5) % Plt Count 218 (150-450) k/uL Neutrophils % 83 % Lymphocytes % 9 % Monocytes % 5 % Eosinophils % 1 % Basophils % 0 % Neutrophils # 8.0 H (1.3-7.7) k/uL Lymphocytes # 0.9 L (1.0-4.8) k/uL Monocytes # 0.5 (0-1.0) k/uL Eosinophils # 0.1 (0-0.7) k/uL Basophils # 0.0 (0-0.2) k/uL Hypochromasia Marked Poikilocytosis Moderate Anisocytosis Moderate Sodium (137-145) mmol/L Potassium (3.5-5.1) mmol/L Chloride (98-107) mmol/L Carbon Dioxide (22-30) mmol/L Anion Gap mmol/L BUN (7-17) mg/dL Creatinine (0.52-1.04) mg/dL Est GFR (CKD-EPI)AfAm (>60 ml/min/1.73 sqM) Est GFR (CKD-EPI)NonAf (>60 ml/min/1.73 sqM) Glucose (74-99) mg/dL Plasma Lactic Acid Hayden (0.7-2.0) mmol/L Calcium (8.4-10.2) mg/dL Magnesium (1.6-2.3) mg/dL Troponin I (0.000-0.034) ng/mL Stool Occult Blood Positive H (Negative) Blood Type O Positive Blood Type Recheck No Antibody Screen NEGATIVE Crossmatch See Detail Spec Expiration Date 10/05/2018 - 231610/02/18 10/02/18 10/02/18 Range/Units 15:17 15:17 15:17 WBC (3.8-10.6) k/uL RBC (3.80-5.40) m/uL Hgb (11.4-16.0) gm/dL Hct (34.0-46.0) % MCV (80.0-100.0) fL MCH (25.0-35.0) pg MCHC (31.0-37.0) g/dL RDW (11.5-15.5) % Plt Count (150-450) k/uL Neutrophils % % Lymphocytes % % Monocytes % % Eosinophils % % Basophils % % Neutrophils # (1.3-7.7) k/uL Lymphocytes # (1.0-4.8) k/uL Monocytes # (0-1.0) k/uL Eosinophils # (0-0.7) k/uL Basophils # (0-0.2) k/uL Hypochromasia Poikilocytosis Anisocytosis Sodium 140 (137-145) mmol/L Potassium 4.1 (3.5-5.1) mmol/L Chloride 104 (98-107) mmol/L Carbon Dioxide 27 (22-30) mmol/L Anion Gap 9 mmol/L BUN 49 H (7-17) mg/dL Creatinine 1.44 H (0.52-1.04) mg/dL Est GFR (CKD-EPI)AfAm 43 (>60 ml/min/1.73 sqM) Est GFR (CKD-EPI)NonAf 37 (>60 ml/min/1.73 sqM) Glucose 122 H (74-99) mg/dL Plasma Lactic Acid Hayden 1.7 (0.7-2.0) mmol/L Calcium 9.0 (8.4-10.2) mg/dL Magnesium 2.2 (1.6-2.3) mg/dL Troponin I 0.054 H* (0.000-0.034) ng/mL Stool Occult Blood (Negative) Blood Type Blood Type Recheck Antibody Screen Crossmatch Spec Expiration Date Disposition Clinical Impression: GI bleed, Blood loss anemia Disposition: ADMITTED IP TO THIS [facility] Condition: Fair Referrals: Galera,Roberto, MD [Primary Care Provider] - 1-2 days Decision Time: 16:30
[2018-10-02 15:41] LABS: Anisocytosis Moderate; Basophils % (A) 0 %; Eosinophils # (A) 0.1 k/uL (0-0.7); Eosinophils % (A) 1 %; HCT 21.9 % (34.0-46.0); Hypochromasia Marked; Lymphocytes # (A) 0.9 k/uL (1.0-4.8); Lymphocytes % (A) 9 %; MCH 27.4 pg (25.0-35.0); MCHC 30.5 g/dL (31.0-37.0); Mean Platelet Volume 9.9; Monocytes # (A) 0.5 k/uL (0-1.0); Monocytes % (A) 5 %; Neutrophils % (A) 83 %; Platelet Count 218 k/uL (150-450); Poikilocytosis Moderate; RBC 2.43 m/uL (3.80-5.40); RDW 20.2 % (11.5-15.5); WBC 9.7 k/uL (3.8-10.6)
[2018-10-02 15:52] LABS: HGB 6.7 gm/dL (11.4-16.0)
[2018-10-02 15:59] LABS: Magnesium 2.2 mg/dL (1.6-2.3); Potassium 4.1 mmol/L (3.5-5.1)
[2018-10-02] MEDS ORDERED: PANTOPRAZOLE 40 MG/10 ML VIAL IVP ONE (16:28)
[2018-10-02] MEDS ORDERED: NALOXONE 0.4 MG/ML 1 ML VIAL IV PRN (16:31)
[2018-10-02] MEDS ORDERED: ACETAMINOPHEN TAB 325 MG TAB PO PRN ×2 (16:31→17:13)
[2018-10-02] MEDS ORDERED: ONDANSETRON 4 MG/2 ML VIAL IVP PRN (16:31)
[2018-10-02] MEDS ORDERED: ASPIRIN 81 MG PO SCH (17:00)
[2018-10-02] MEDS ORDERED: BISACODYL 10 MG SUPP RECTAL PRN (17:13)
[2018-10-02] MEDS ORDERED: MAGNESIUM HYDROXIDE 2,400 MG/10 ML CUP PO PRN (17:13)
[2018-10-02] MEDS ORDERED: SENNOSIDES-DOCUSATE SODIUM 1 EACH TAB PO PRN (17:13)
[2018-10-02] MEDS ORDERED: BENZOCAINE/MENTHOL LOZENG 1 EACH LOZENGE MUCOUS MEM PRN (17:13)
[2018-10-02] MEDS ORDERED: IPRATROPIUM-ALBUTEROL 3 ML NEB INHALATION PRN (17:13)
--- NOTE | 2018-10-02 17:13 | P.HPIM ---
History of Present Illness Patient is a pleasant 67-year-old female was recently discharged from the hospital after she was treated for GI bleed. Patient had a recent CABG patient has a history of atrial fibrillation on Eliquis and aspirin came in today with complaints of 1 episode of blood in the stools. Patient's previous hemoglobin during during her last hospitalization and discharge was around 8.5 to around 6.6. During her last hospitalization patient underwent upper GI endoscopy which did not show any significant abnormality and patient underwent capsule endoscopy which did not reveal any pathology at that time patient declined colonoscopy. P atient denied any fever chills nausea vomiting. Review of Systems REVIEW OF SYSTEMS: CONSTITUTIONAL: No fever, no malaise, no fatigue. HEENT: No recent visual problems or hearing problems. Denied any sore throat. CARDIOVASCULAR: No chest pain, orthopnea, PND, no palpitations, no syncope. PULMONARY: No shortness of breath, no cough, no hemoptysis. GASTROINTESTINAL: As mentioned in HPI NEUROLOGICAL: No headaches, no weakness, no numbness. HEMATOLOGICAL: Denies any bleeding or petechiae. GENITOURINARY: Denies any burning micturition, frequency, or urgency. MUSCULOSKELETAL/RHEUMATOLOGICAL: Denies any joint pain, swelling, or any muscle pain. ENDOCRINE: Denies any polyuria or polydipsia. The rest of the 14-point review of systems is negative. Past Medical History Past Medical History: Atrial Fibrillation, Coronary Artery Disease (CAD), Chest Pain / Angina, COPD, Hyperlipidemia, Hypertension, Myocardial Infarction (non Q- wave), Osteoarthritis (OA), Vascular Disorder Additional Past Medical History / Comment(s): UTERINE CANCER. LT CATARACT, morbid obesity. Last Myocardial Infarction Date:: 2003 History of Any Multi-Drug Resistant Organisms: None Reported Past Surgical History: Coronary Bypass/CABG, Heart Catheterization With Stent, Hysterectomy, Orthopedic Surgery Additional Past Surgical History / Comment(s): UZMA KNEE REPLACMENTS, RT ANKLE- METAL PLATE, RT ARM SX REPAIR D/T LACERATION. RT THUMB TENDON REPAIR," LT FOOT GREAT TOE BONE REMOVED". Off-pump 3 vessel CABG 08/23/2018 Past Anesthesia/Blood Transfusion Reactions: Blood Transfusion Reaction Additional Past Anesthesia/Blood Transfusion Reaction / Comment(s): PAST BLOOD [id number] Date of Last Stent Placement:: 2003 Past Psychological History: No Psychological Hx Reported Smoking Status: Former smoker Past Alcohol Use History: None Reported Past Drug Use History: None Reported - Past Family History Mother Family Medical History: No Reported History Father History Unknown: Yes Medications and Allergies Home Medications Medication Instructions Recorded Confirmed Type Apixaban [Eliquis] 5 mg PO BID@0800,1700 10/27/17 10/02/18 History Cholecalciferol (Vitamin D3) 2,000 unit PO DAILY@1700 08/15/18 10/02/18 History [Vitamin D3] Acetaminophen Tab [Tylenol] 650 mg PO Q4HR PRN tab 08/28/18 10/02/18 Rx Magnesium Hydroxide [Milk of 2,400 mg PO DAILY PRN ml 08/28/18 10/02/18 Rx Magnesia Concentrate] Aspirin [Adult Low Dose Aspirin EC] 81 mg PO DAILY@1700 09/21/18 10/02/18 History Atorvastatin [Lipitor] 80 mg PO HS@2100 09/21/18 10/02/18 History Benzocaine/Menthol Lozeng [Cepacol 1 lozenge MUCOUS MEM Q2H PRN 09/21/18 10/02/18 History lozenge] Bisacodyl [Dulcolax] 10 mg RECTAL DAILY PRN 09/21/18 10/02/18 History Cinacalcet [Sensipar] 60 mg PO BID@0800,1700 09/21/18 10/02/18 History Furosemide [Lasix] 20 mg PO BID@0600,1400 09/21/18 10/02/18 History INSULIN ASPART (NovoLOG) [NovoLOG See Protocol SQ ACHS 09/21/18 10/02/18 History (formulary)] Ipratropium-Albuterol Nebulize 3 ml INHALATION RT-Q4H PRN 09/21/18 10/02/18 History [Duoneb 0.5 mg-3 mg/3 ml Soln] Metoprolol Tartrate [Lopressor] 12.5 mg PO BID@0800,1700 09/21/18 10/02/18 History Na Phos,M-B/Na Phos,Di-Ba [Fleet 133 ml RECTAL DAILY PRN 09/21/18 10/02/18 History Adult] Pantoprazole [Protonix] 40 mg PO DAILY@0600 09/21/18 10/02/18 History Potassium Chloride ER [K-Dur 20] 20 meq PO DAILY@1700 09/21/18 10/02/18 History Sennosides-Docusate Sodium 2 tab PO HS PRN 09/21/18 10/02/18 History [Senokot-S] Sodium Bicarbonate Tab 650 mg PO BID@0800,1700 09/21/18 10/02/18 History [place] Instant Breakfast 1 packet PO DAILY@0800 10/02/18 10/02/18 History Allergies Allergy/AdvReac Type Severity Reaction Status Date / Time No Known Allergies Allergy Verified 10/02/18 14:15 Physical Exam Vitals: Vital Signs Temp Pulse Pulse Resp BP Pulse Ox 10/02/18 16:31 80 18 112/58 99 10/02/18 15:05 71 18 135/67 98 10/02/18 15:04 75 10/02/18 14:05 97.1 F L 76 20 111/50 100 Intake and Output 10/02/18 10/02/18 10/02/18 06:59 14:59 22:59 Other: Weight 116.12 kg PHYSICAL EXAMINATION: GENERAL: The patient is alert and oriented x3, not in any acute distress. Well developed, well nourished. HEENT: Pupils are round and equally reacting to light. EOMI. No scleral icterus. Does have conjunctival pallor. Normocephalic, atraumatic. No pharyngeal erythema. No thyromegaly. CARDIOVASCULAR: S1 and S2 present. No murmurs, rubs, or gallops. had minimally elevated JVD about 4 cm above the clavicle at 90 angle PULMONARY: Chest is clear to auscultation, no wheezing or crackles. ABDOMEN: Soft, nontender, nondistended, normoactive bowel sounds. No palpable organomegaly. MUSCULOSKELETAL: No joint swelling or deformity. EXTREMITIES: No cyanosis, clubbing, or pedal edema. NEUROLOGICAL: Gross neurological examination did not reveal any focal deficits. SKIN: No rashes. Results CBC & Chem 7: 10/02/18 15:17 10/02/18 15:17 Labs: Abnormal Lab Results - Last 24 Hours (Table) 10/02/18 10/02/18 10/02/18 Range/Units 14:30 15:17 15:17 RBC 2.43 L (3.80-5.40) m/uL Hgb 6.7 L* (11.4-16.0) gm/dL Hct 21.9 L (34.0-46.0) % MCHC 30.5 L (31.0-37.0) g/dL RDW 20.2 H (11.5-15.5) % Neutrophils # 8.0 H (1.3-7.7) k/uL Lymphocytes # 0.9 L (1.0-4.8) k/uL BUN (7-17) mg/dL Creatinine (0.52-1.04) mg/dL Glucose (74-99) mg/dL Troponin I (0.000-0.034) ng/mL Stool Occult Blood Positive H (Negative) Crossmatch See Detail 10/02/18 10/02/18 Range/Units 15:17 15:17 RBC (3.80-5.40) m/uL Hgb (11.4-16.0) gm/dL Hct (34.0-46.0) % MCHC (31.0-37.0) g/dL RDW (11.5-15.5) % Neutrophils # (1.3-7.7) k/uL Lymphocytes # (1.0-4.8) k/uL BUN 49 H (7-17) mg/dL Creatinine 1.44 H (0.52-1.04) mg/dL Glucose 122 H (74-99) mg/dL Troponin I 0.054 H* (0.000-0.034) ng/mL Stool Occult Blood (Negative) Crossmatch Assessment and Plan Plan: -Acute lower GI bleed: Either diverticular or hemorrhoidal mostly appears to be viral bleed. Hold off on anticoagulations Eliquis, antiplatelet therapy aspirin as well. 1 unit of PRBC transfusion, gastric body was consulted. -Congestive heart failure chronic systolic dysfunction with mild acute exacerbation ejection fraction of 35-40%, patient is not in respiratory distress for now will just resume a her oral Lasix and monitor. -Acute renal failure prerenal azotemia due to intravascular volume depletion from GI bleed 1 unit of PRBC transfusion -Atrial fibrillation, presently rate controlled anti-correlation is on hold because of above-mentioned reasons -Essential Hypertension -Right internal carotid occlusion 80% to his chronic -COPD without any significant exacerbation -Chronic venous insufficiency lower extremities and pedal edema secondary to that
[2018-10-02] MEDS: INSULIN ASPART (NovoLOG) 100 UNIT/ML VIAL SQ SCH ×2 (21:34→23:06)
[2018-10-02] MEDS: ATORVASTATIN 80 MG TAB PO SCH (21:39)
[2018-10-02] MEDS: METOPROLOL TARTRATE 12.5 MG TAB PO SCH (21:39)
[2018-10-02 21:45] LABS: Glucose,Whole Blood 128 mg/dL (75-99)
[2018-10-02] MEDS: SODIUM CHLORIDE 0.9% 1,000 ML IV SCH (22:54)
[2018-10-03] MEDS ORDERED: FUROSEMIDE 10 MG/ML 2 ML VIAL IV ONE (01:06)
[2018-10-03] MEDS: PANTOPRAZOLE 40 MG/10 ML VIAL IVP SCH ×3 (01:48→20:40)
--- NOTE | 2018-10-03 02:03 | XR ---
INDICATION: Shortness of breath COMPARISON: CXR 09/21/18 FINDINGS: Portable AP view of the chest is provided. There is cardiomegaly. There has been previous midline sternotomy. A left atrial clip is again noted. There is no significant pulmonary vascular congestion. A moderate right pleural effusion has increased in size from prior exam. There is adjacent airspace disease in the right lung. The left lung again demonstrates linear regions of scarring and/or subsegmental atelectasis, unchanged. There is no pneumothorax. There are no acute osseous findings. IMPRESSION: 1. Moderate right pleural effusion, and increased from prior exam. 2. Adjacent airspace disease in the right lower lung, atelectasis or pneumonia.
[2018-10-03] MEDS: FUROSEMIDE 20 MG TAB PO SCH ×2 (04:51→17:33)
[2018-10-03 05:46] LABS: Glucose,Whole Blood 125 mg/dL (75-99)
[2018-10-03] MEDS: INSULIN ASPART (NovoLOG) 100 UNIT/ML VIAL SQ SCH ×4 (05:47→20:40)
[2018-10-03] MEDS ORDERED: PANTOPRAZOLE 40 MG TABLET PO SCH (06:00)
[2018-10-03] MEDS: SODIUM CHLORIDE 0.9% 1,000 ML IV SCH ×3 (07:22→23:15)
[2018-10-03 08:01] LABS: Anisocytosis Moderate; HCT 20.1 % (34.0-46.0); Hypochromasia Marked; MCH 27.8 pg (25.0-35.0); MCHC 31.2 g/dL (31.0-37.0); MCV 89.1 fL (80.0-100.0); Mean Platelet Volume 10.1; Platelet Count 212 k/uL (150-450); Poikilocytosis Moderate; RBC 2.26 m/uL (3.80-5.40); RDW 20.9 % (11.5-15.5); WBC 9.8 k/uL (3.8-10.6)
[2018-10-03 08:03] LABS: HGB 6.3 gm/dL (11.4-16.0)
[2018-10-03 08:22] LABS: Calcium 8.6 mg/dL (8.4-10.2); Potassium 4.1 mmol/L (3.5-5.1)
[2018-10-03] MEDS: METOPROLOL TARTRATE 12.5 MG TAB PO SCH ×2 (09:13→17:33)
[2018-10-03] MEDS: CINACALCET 30 MG TAB PO SCH ×2 (09:14→17:34)
[2018-10-03] MEDS: SODIUM BICARBONATE TAB 650 MG TAB PO SCH ×2 (09:14→17:32)
[2018-10-03 11:11] LABS: Glucose,Whole Blood 114 mg/dL (75-99)
--- NOTE | 2018-10-03 15:19 | P.CONS ---
History of Present Illness - Reason for Consult Consult date: 10/03/18 GI bleed Requesting physician: Christopher Almaraz - Chief Complaint Low hemoglobin - History of Present Illness 67-year-old female presents with a low hemoglobin. Recent CABG one month ago on Eliquis. Past medical history of remote anemia, atrial fibrillation, CHF, hypertension, CAD. She was seen by the GI service 2 weeks ago for evaluation of dark-colored bowel movements and anemia. She underwent EGD evaluation on 09/24/[address] Lowe with no evidence of active bleeding or pathology to explain anemia. Patient was advised colonoscopy but she declined. Video capsule was completed no evidence of active bleeding or bleeding sources. Discharge hemoglobin was 7.5. Admission hemoglobin 6.6 presently 6.3. MCV 91. Platelet 232. BUN 45. Creatinine 1.3. FOBT positive. Denies overt bleeding such as hematemesis hematochezia melena. Still refusing colonoscopy. Denies abdominal pain. Review of Systems Constitutional: Denies fever, chills, sweats, weight gain, or loss. HEENT: Negative for migraines, blurred vision or loss, earaches, drainage, tinnitus, oral mucosal lesions, dysphagia, or odynophagia. CARDIAC: Negative for chest pain, arrhythmias, or palpitation. RESPIRATORY: Negative for shortness of breath, hemoptysis, cough, or sputum production. GI: See HPI for pertinent findings. : Negative for hematuria, urgency, frequency, polyuria, or dysuria. GYNc: Denies possibility of . Negative vaginal discharge. MUSCULOSKELETAL: Negative for muscle aches, swelling, arthritis, and arthralgias. NEUROLOGIC: Negative for stroke or TIA. ENDOCRINE: Negative for thyroid problems. SKIN: Negative for rash or itching. PSYCHIATRIC: Negative history for depression and anxiety Past Medical History Past Medical History: Atrial Fibrillation, Coronary Artery Disease (CAD), Chest Pain / Angina, COPD, Hyperlipidemia, Hypertension, Myocardial Infarction (non Q- wave), Osteoarthritis (OA), Vascular Disorder Additional Past Medical History / Comment(s): UTERINE CANCER. LT CATARACT, morbid obesity. Last Myocardial Infarction Date:: 2003 History of Any Multi-Drug Resistant Organisms: None Reported Past Surgical History: Coronary Bypass/CABG, Heart Catheterization With Stent, Hysterectomy, Orthopedic Surgery Additional Past Surgical History / Comment(s): UZMA KNEE REPLACMENTS, RT ANKLE- METAL PLATE, RT ARM SX REPAIR D/T LACERATION. RT THUMB TENDON REPAIR," LT FOOT GREAT TOE BONE REMOVED". Off-pump 3 vessel CABG 08/23/2018 Past Anesthesia/Blood Transfusion Reactions: Blood Transfusion Reaction Additional Past Anesthesia/Blood Transfusion Reaction / Comm: PAST BLOOD [id number] Date of Last Stent Placement:: 2003 Past Psychological History: No Psychological Hx Reported Additional Psychological History / Comment(s): PT LIVES ALONE IN [place] currently in rehab at [facility].NO STEPS TO CLIMB. NO PETS. 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 Smoking Status: Former smoker Past Alcohol Use History: None Reported Additional Past Alcohol Use History / Comment(s): STARTED SMOKING AT AGE 14 Past Drug Use History: None Reported - Past Family History Mother Family Medical History: No Reported History Father History Unknown: Yes Medications and Allergies Home Medications Medication Instructions Recorded Confirmed Type Apixaban [Eliquis] 5 mg PO BID@0800,1700 10/27/17 10/02/18 History Cholecalciferol (Vitamin D3) 2,000 unit PO DAILY@1700 08/15/18 10/02/18 History [Vitamin D3] Acetaminophen Tab [Tylenol] 650 mg PO Q4HR PRN tab 08/28/18 10/02/18 Rx Magnesium Hydroxide [Milk of 2,400 mg PO DAILY PRN ml 08/28/18 10/02/18 Rx Magnesia Concentrate] Aspirin [Adult Low Dose Aspirin EC] 81 mg PO DAILY@1700 09/21/18 10/02/18 History Atorvastatin [Lipitor] 80 mg PO HS@2100 09/21/18 10/02/18 History Benzocaine/Menthol Lozeng [Cepacol 1 lozenge MUCOUS MEM Q2H PRN 09/21/18 10/02/18 History lozenge] Bisacodyl [Dulcolax] 10 mg RECTAL DAILY PRN 09/21/18 10/02/18 History Cinacalcet [Sensipar] 60 mg PO BID@0800,1700 09/21/18 10/02/18 History Furosemide [Lasix] 20 mg PO BID@0600,1400 /10/02/18 History INSULIN ASPART (NovoLOG) [NovoLOG See Protocol SQ ACHS 09/21/18 10/02/18 History (formulary)] Ipratropium-Albuterol Nebulize 3 ml INHALATION RT-Q4H PRN 09/21/18 10/02/18 History [Duoneb 0.5 mg-3 mg/3 ml Soln] Metoprolol Tartrate [Lopressor] 12.5 mg PO BID@0800,1700 09/21/18 10/02/18 History Na Phos,M-B/Na Phos,Di-Ba [Fleet 133 ml RECTAL DAILY PRN 09/21/18 10/02/18 History Adult] Pantoprazole [Protonix] 40 mg PO DAILY@0600 09/21/18 10/02/18 History Potassium Chloride ER [K-Dur 20] 20 meq PO DAILY@1700 09/21/18 10/02/18 History Sennosides-Docusate Sodium 2 tab PO HS PRN 09/21/18 10/02/18 History [Senokot-S] Sodium Bicarbonate Tab 650 mg PO BID@0800,1700 09/21/18 10/02/18 History Orting Instant Breakfast 1 packet PO DAILY@0800 10/02/18 10/02/18 History Allergies Allergy/AdvReac Type Severity Reaction Status Date / Time No Known Allergies Allergy Verified 10/02/18 14:15 Physical Exam Vitals: Vital Signs Temp Pulse Pulse Resp BP BP Pulse Ox 10/03/18 11:32 97.3 F L 59 L 20 116/54 99 10/03/18 11:31 75 18 10/03/18 09:19 75 18 10/03/18 09:18 97.5 F L 75 18 111/57 99 10/03/18 05:06 70 100 10/03/18 04:48 98 21 118/68 91 L 10/03/18 01:49 69 18 136/73 91 L 10/03/18 01:10 97.3 F L 83 16 101/63 88 L 10/02/18 22:30 68 24 132/50 99 10/02/18 19:22 96.9 F L 72 20 120/62 98 10/02/18 18:52 98.0 F 73 18 127/70 10/02/18 18:42 98.0 F 70 18 119/32 10/02/18 16:31 80 18 112/58 99 10/02/18 15:05 71 18 135/67 98 10/02/18 15:04 75 10/02/18 14:05 97.1 F L 76 20 111/50 100 Intake and Output 10/02/18 10/03/18 10/03/18 22:59 06:59 14:59 Intake Total 310 Output Total 300 700 Balance 310 -300 -700 Intake: Blood Product 310 Rc As-1 Unit 310 [id number] Output: Urine 300 700 Other: Voiding Method Bedside Commode Bedside Commode # Voids 1 1 # Bowel Movements 1 Weight 116.3 kg General appearance: The patient is alert, oriented, in no acute distress. HET: Head is normocephalic and atraumatic. Pupils are equal and reactive. Oropharynx is clear without lesions. Neck: Supple without lymphadenopathy. Trachea midline. Heart: S1 S2. Regular rate and rhythm. Lungs: No crackles or wheezes are heard. Abdomen: Soft, nontender, nondistended with bowel sounds. No peritoneal signs. No palpable organomegaly or masses. Extremities: Normal skin color and turgor. No cyanosis, rash, ulceration, clubbing, or edema. Radial and pedal pulses are 2/4 bilaterally. Neurological: No focal deficits. Strength and sensation are grossly intact. Results CBC & Chem 7: 10/03/18 07:34 10/03/18 07:34 Labs: Abnormal Lab Results - Last 24 Hours (Table) 10/02/18 10/02/18 10/02/18 Range/Units 14:30 15:17 15:17 RBC 2.43 L (3.80-5.40) m/uL Hgb 6.7 L* (11.4-16.0) gm/dL Hct 21.9 L (34.0-46.0) % MCHC 30.5 L (31.0-37.0) g/dL RDW 20.2 H (11.5-15.5) % Neutrophils # 8.0 H (1.3-7.7) k/uL Lymphocytes # 0.9 L (1.0-4.8) k/uL BUN (7-17) mg/dL Creatinine (0.52-1.04) mg/dL Glucose (74-99) mg/dL POC Glucose (mg/dL) (75-99) mg/dL Troponin I (0.000-0.034) ng/mL Stool Occult Blood Positive H (Negative) Crossmatch See Detail 10/02/18 10/02/18 10/02/18 Range/Units 15:17 15:17 21:32 RBC (3.80-5.40) m/uL Hgb (11.4-16.0) gm/dL Hct (34.0-46.0) % MCHC (31.0-37.0) g/dL RDW (11.5-15.5) % Neutrophils # (1.3-7.7) k/uL Lymphocytes # (1.0-4.8) k/uL BUN 49 H (7-17) mg/dL Creatinine 1.44 H (0.52-1.04) mg/dL Glucose 122 H (74-99) mg/dL POC Glucose (mg/dL) 128 H (75-99) mg/dL Troponin I 0.054 H* (0.000-0.034) ng/mL Stool Occult Blood (Negative) Crossmatch 10/03/18 10/03/18 10/03/18 Range/Units 05:44 07:34 07:34 RBC 2.26 L (3.80-5.40) m/uL Hgb 6.3 L* (11.4-16.0) gm/dL Hct 20.1 L (34.0-46.0) % MCHC (31.0-37.0) g/dL RDW 20.9 H (11.5-15.5) % Neutrophils # (1.3-7.7) k/uL Lymphocytes # (1.0-4.8) k/uL BUN 56 H (7-17) mg/dL Creatinine 1.79 H (0.52-1.04) mg/dL Glucose 112 H (74-99) mg/dL POC Glucose (mg/dL) 125 H (75-99) mg/dL Troponin I (0.000-0.034) ng/mL Stool Occult Blood (Negative) Crossmatch 10/03/18 Range/Units 11:08 RBC (3.80-5.40) m/uL Hgb (11.4-16.0) gm/dL Hct (34.0-46.0) % MCHC (31.0-37.0) g/dL RDW (11.5-15.5) % Neutrophils # (1.3-7.7) k/uL Lymphocytes # (1.0-4.8) k/uL BUN (7-17) mg/dL Creatinine (0.52-1.04) mg/dL Glucose (74-99) mg/dL POC Glucose (mg/dL) 114 H (75-99) mg/dL Troponin I (0.000-0.034) ng/mL Stool Occult Blood (Negative) Crossmatch Assessment and Plan (1) Normocytic hypochromic anemia Narrative/Plan: 67-year-old female admitted with abnormal CBC recent hospitalization for GI bleed evaluation anemia status post EGD small bowel capsule endoscopy with unremarkable findings. Colonoscopy advised patient declines. Etiology of anemia possible colonic in nature. Current Visit: Yes Status: Acute Code(s): D50.9 - IRON DEFICIENCY ANEMIA, UNSPECIFIED SNOMED Code(s): 96961293 Plan: 1. Patient refuses colonoscopy continue CBC monitoring transfusion as indicated anticoagulation is presently on hold. GI prophylaxis. Thank you for this kind referral and the opportunity to participate in the care of your patient. This consultation was discussed with Dr. Lowe. The impression and plan of care have been directed as dictated.
[2018-10-03 17:09] LABS: Glucose,Whole Blood 108 mg/dL (75-99)
[2018-10-03] MEDS ORDERED: PEG 3350-NA SULF,BICARB,CL/KCL 4,000 ML BOTTLE PO ONE (18:30)
[2018-10-03 20:35] LABS: Glucose,Whole Blood 114 mg/dL (75-99)
[2018-10-03] MEDS: ATORVASTATIN 80 MG TAB PO SCH (20:40)
--- NOTE | 2018-10-03 23:53 | PN ---
PROGRESS NOTE DATE OF SERVICE: 10/03/2018 PRESENTING COMPLAINT: Low hemoglobin. INTERVAL HISTORY: This is a patient who was discharged from the hospital just about a week ago. Patient underwent a coronary bypass on August 23 and also ligation of left atrial appendage. The patient's hemoglobin on her last admission dropped down to 6.3 and she was transfused blood. Patient did undergo EGD that showed mild gastritis. The patient also underwent a capsule study that was not entirely complete. The patient subsequently was discharged on 09/26/2018. Patient had received a total of 2 units of blood. Hemoglobin was 7.5. The patient is now admitted with a hemoglobin of 6.7 and was given a unit of blood. The patient did have some dark stools. Repeat hemoglobin this morning was 6.3. Earlier the patient refused colonoscopy with GI. The patient does feel a bit tired and rundown. REVIEW OF SYSTEMS: Done for constitutional, cardiovascular, GI, pulmonary; relevant findings as above. CURRENT MEDICATIONS: Reviewed. PHYSICAL EXAMINATION: VITAL SIGNS: Temperature 97.6, pulse 87, respiration 20, blood pressure 115/54, pulse ox 92%. GENERAL APPEARANCE: Sitting up, awake, tired-appearing. EYES: Pupils equal. Conjunctivae pale. NECK: JVD unable to assess. Mass not palpable. RESPIRATORY: Effort increased. LUNGS: Distant breath sounds. CARDIOVASCULAR: First and second sounds normal. Some edema. ABDOMEN: Soft, non-tender. PSYCHIATRY: Awake. Answering questions. INVESTIGATIONS: White count 9.8, hemoglobin 6.3, potassium 4.1, BUN 26, creatinine 1.79. Patient's creatinine was 1.18 on 09/21/2018. ASSESSMENT: 1. Acute gastrointestinal bleed, persistent, causing significant anemia. Exact source unknown. EGD was unremarkable. 2. Acute severe blood loss anemia. A second unit of blood is being ordered by me today. 3. Coronary artery bypass recently. 4. Coronary artery disease with prior history of stent. 5. Chronic congestive heart failure from systolic dysfunction, ejection fraction 35% to 40%, with underlying coronary artery disease. 6. Hypertensive heart disease. 7. Paroxysmal atrial fibrillation, currently in sinus rhythm. 8. Essential hypertension. 9. Primary osteoarthritis. 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 11.Chronic obstructive pulmonary disease. 12.Peripheral artery disease. 13.Chronic venous insufficiency in lower extremity. 14.Hypercalcemia in a patient with known hyperparathyroidism. 15.Lower extremity wounds, recently treated with antibiotics. 16.Acute renal failure, likely prerenal. PLAN: The patient is ordered a unit of blood. Will hold off the IV Lasix. I did have a lengthy talk with the patient. She is agreeable to proceed with colonoscopy. I did convey this to Kelly. Patient is getting another unit of blood. We will recheck patient's electrolytes and CBC in the morning. Prognosis is guarded. Expect the patient to be in the hospital for at least 2 more nights. MMODL / IJN: [id number] /
[2018-10-04] MEDS: INSULIN ASPART (NovoLOG) 100 UNIT/ML VIAL SQ SCH ×4 (06:10→21:18)
[2018-10-04] MEDS: FUROSEMIDE 20 MG TAB PO SCH ×2 (06:20→15:19)
[2018-10-04 06:28] LABS: Glucose,Whole Blood 102 mg/dL (75-99)
[2018-10-04 06:59] LABS: Anisocytosis Moderate; Basophils % (A) 0 %; Eosinophils # (A) 0.2 k/uL (0-0.7); Eosinophils % (A) 2 %; Hypochromasia Marked; Lymphocytes # (A) 0.8 k/uL (1.0-4.8); Lymphocytes % (A) 8 %; MCH 26.9 pg (25.0-35.0); MCHC 29.3 g/dL (31.0-37.0); Macrocytosis Slight; Mean Platelet Volume 10.1; Monocytes # (A) 0.6 k/uL (0-1.0); Monocytes % (A) 6 %; Neutrophils # (A) 8.3 k/uL (1.3-7.7); Neutrophils % (A) 82 %; Platelet Count 217 k/uL (150-450); Poikilocytosis Moderate; RBC 2.05 m/uL (3.80-5.40); RDW 20.4 % (11.5-15.5); WBC 10.2 k/uL (3.8-10.6)
[2018-10-04 07:34] LABS: Calcium 8.1 mg/dL (8.4-10.2); Potassium 3.9 mmol/L (3.5-5.1)
[2018-10-04 07:35] LABS: HGB 5.5 gm/dL (11.4-16.0)
[2018-10-04 07:36] LABS: HCT 18.9 % (34.0-46.0)
[2018-10-04] MEDS: CINACALCET 30 MG TAB PO SCH ×2 (09:36→17:15)
[2018-10-04] MEDS: SODIUM BICARBONATE TAB 650 MG TAB PO SCH ×2 (09:36→17:15)
[2018-10-04 11:33] LABS: Glucose,Whole Blood 105 mg/dL (75-99)
[2018-10-04] MEDS: METOPROLOL TARTRATE 12.5 MG TAB PO SCH ×2 (12:37→17:15)
[2018-10-04 16:49] LABS: Glucose,Whole Blood 98 mg/dL (75-99)
[2018-10-04] MEDS ORDERED: BISACODYL 5 MG TABLET.DR PO ONE (18:12)
[2018-10-04 20:24] LABS: Anisocytosis Slight; HCT 24.4 % (34.0-46.0); Hypochromasia Marked; MCH 27.7 pg (25.0-35.0); Mean Platelet Volume 11.4; Platelet Count 189 k/uL (150-450); Poikilocytosis Moderate; RBC 2.83 m/uL (3.80-5.40); RDW 19.6 % (11.5-15.5); WBC 11.8 k/uL (3.8-10.6)
[2018-10-04 20:27] LABS: HGB 7.8 gm/dL (11.4-16.0); MCV 86.4 fL (80.0-100.0)
[2018-10-04 20:46] LABS: Glucose,Whole Blood 100 mg/dL (75-99)
[2018-10-04] MEDS: SODIUM CHLORIDE 0.9% 1,000 ML IV SCH (21:18)
[2018-10-04] MEDS: ATORVASTATIN 80 MG TAB PO SCH (21:44)
--- NOTE | 2018-10-04 22:15 | PN ---
PROGRESS NOTE DATE OF SERVICE: 10/04/2018 PRESENTING COMPLAINT: Drop in hemoglobin. INTERVAL HISTORY: This is a patient with a recent coronary artery bypass on August 23. She has had 2 admissions now for a drop in hemoglobin. EGD and small capsule study were unremarkable. This morning the nurse called me again; patient had dropped her hemoglobin below 7 even after receiving 2 units of blood. The patient has a large hematoma on the right upper extremity and maybe some of it had extravasated. Patient has had dark stools. The patient is due for a colonoscopy later today. REVIEW OF SYSTEMS: Done for constitutional, cardiovascular, GI, pulmonary; relevant findings as above. CURRENT MEDICATIONS: Reviewed. PHYSICAL EXAMINATION: VITAL SIGNS: Temperature 96.9, pulse 71, respiration 16, blood pressure 135/64, pulse ox 95%. GENERAL APPEARANCE: Sitting up in a chair, awake. EYES: Pupils equal. Conjunctivae pale. NECK: JVD unable to assess. Mass not palpable. RESPIRATORY: Effort increased. LUNGS: Decreased breath sounds. CARDIOVASCULAR: First and second sounds normal. Some edema present. ABDOMEN: Soft, nontender. Liver and spleen not palpable. PSYCHIATRY: Awake, answering questions appropriately. EXTREMITIES: Right upper extremity has a large bruising hematoma from the middle of the right upper extremity to just above the wrist. INVESTIGATIONS: White count 10.2, hemoglobin 5.5. ASSESSMENT: 1. Acute gastrointestinal bleed, persistent; again drop of hemoglobin after 2 units of blood. Pending colonoscopy. 2. Acute severe blood loss anemia. Patient has already had 2 units of blood. Two more units of blood have been ordered. 3. Possible extravasation of blood in the right upper extremity. 4. Coronary artery disease with bypass recently on August 20. 5. Chronic congestive heart failure from systolic dysfunction, ejection fraction 35% to 40%, from underlying coronary artery disease. 6. Hypertensive heart disease. 7. Paroxysmal atrial fibrillation, in sinus rhythm. 8. Essential hypertension. 9. Primary osteoarthritis. 10.Complete occlusion of the right internal carotid artery and 80% occlusion of the left internal carotid artery. 11.Chronic obstructive pulmonary disease. 12.Peripheral artery disease. 13.Chronic venous insufficiency in lower extremity. 14.Hypercalcemia in a patient with known hyperparathyroidism. 15.Lower extremity wounds recently treated with antibiotics. 16.Acute renal failure, likely prerenal. PLAN: Two more units of blood have been ordered. Repeat hemoglobin was ordered for this evening, which did come back at 7.8. Patient is pending colonoscopy. Prognosis guarded. MMODL / IJN: [id number] /
--- NOTE | 2018-10-04 22:35 | P.PN ---
Subjective Progress Note Date: 10/04/18 Principal diagnosis: Anemia The patient was scheduled for colonoscopy today but refused to finish prep. She is seen lying in bed denying any abdominal pain. She states that she had difficulty drinking the prep and is unsure if she'll be able to complete it. Objective - Vital Signs Vital signs: Vital Signs Temp 96.9 F L 10/04/18 15:50 Pulse 71 10/04/18 15:50 Resp 16 10/04/18 15:50 BP 154/68 10/04/18 15:50 Pulse Ox 96 10/04/18 15:50 Intake & Output 10/03/18 10/04/18 10/04/18 18:59 06:59 18:59 Intake Total 0 610 490 Output Total 850 Balance -850 610 490 Weight 116.3 kg 118.5 kg Intake: Oral 0 300 180 Blood Product 0 310 310 Rc As-1 Unit 0 310 [id number] Rc As-3 Unit 0 [id number] Rc As-3 Unit 310 [id number] Output: Urine 850 Other: Voiding Method Bedside Commode Bedside Commode Diaper # Voids 1 1 1 # Bowel Movements 2 - Exam On physical examination, patient appears comfortable in no apparent distress. HEAD: Normocephalic, atraumatic. EYES: No scleral icterus. No conjunctival injection. MOUTH: No lesions, tongue midline. NECK: Trachea midline, no gross abnormalities. CHEST: Decreased air entry bilaterally. HEART: S1-S2 appreciated. ABDOMEN: Soft, obese. Bowel sounds are positive. No organomegaly. No guarding or rigidity. EXTREMITIES: Bilateral pedal edema. SKIN: No rashes, no jaundice. NEUROLOGIC: Alert and oriented x3. - Labs CBC & Chem 7: 10/04/18 19:01 10/04/18 05:55 Labs: Abnormal Lab Results - Last 24 Hours (Table) 10/02/18 10/03/18 10/03/18 Range/Units 15:17 16:40 20:33 RBC (3.80-5.40) m/uL Hgb (11.4-16.0) gm/dL Hct (34.0-46.0) % MCHC (31.0-37.0) g/dL RDW (11.5-15.5) % Neutrophils # (1.3-7.7) k/uL Lymphocytes # (1.0-4.8) k/uL Chloride (98-107) mmol/L BUN (7-17) mg/dL Creatinine (0.52-1.04) mg/dL POC Glucose (mg/dL) 108 H 114 H (75-99) mg/dL Calcium (8.4-10.2) mg/dL Crossmatch See Detail 10/04/18 10/04/18 10/04/18 Range/Units 05:55 05:55 06:07 RBC 2.05 L (3.80-5.40) m/uL Hgb 5.5 L* (11.4-16.0) gm/dL Hct 18.9 L* (34.0-46.0) % MCHC 29.3 L (31.0-37.0) g/dL RDW 20.4 H (11.5-15.5) % Neutrophils # 8.3 H (1.3-7.7) k/uL Lymphocytes # 0.8 L (1.0-4.8) k/uL Chloride 109 H (98-107) mmol/L BUN 58 H (7-17) mg/dL Creatinine 1.56 H (0.52-1.04) mg/dL POC Glucose (mg/dL) 102 H (75-99) mg/dL Calcium 8.1 L (8.4-10.2) mg/dL Crossmatch 10/04/18 Range/Units 11:30 RBC (3.80-5.40) m/uL Hgb (11.4-16.0) gm/dL Hct (34.0-46.0) % MCHC (31.0-37.0) g/dL RDW (11.5-15.5) % Neutrophils # (1.3-7.7) k/uL Lymphocytes # (1.0-4.8) k/uL Chloride (98-107) mmol/L BUN (7-17) mg/dL Creatinine (0.52-1.04) mg/dL POC Glucose (mg/dL) 105 H (75-99) mg/dL Calcium (8.4-10.2) mg/dL Crossmatch Assessment and Plan (1) Blood loss anemia Narrative/Plan: Patient presenting back to the hospital for evaluation of anemia with hemoglobin found to be 6.7 with normocytic indices. The patient was previously seen in the hospital a few weeks ago at which time she was evaluated for anemia and melena with EGD which was significant only for some gastritis with no biopsies taken in the setting of anticoagulation and no source of bleeding noted. She subsequently underwent video capsule endoscopy with no bleeding or source of anemia found and visualized small bowel mucosa. Stool testing was positive for blood on this admission and patient's hemoglobin trended to 5.5 and is currently 7.8 after transfusion. Current Visit: Yes Status: Acute Code(s): D50.0 - IRON DEFICIENCY ANEMIA SECONDARY TO BLOOD LOSS (CHRONIC) SNOMED Code(s): 048269596 (2) GI bleed Current Visit: Yes Status: Acute Code(s): K92.2 - GASTROINTESTINAL HEMORR RUBY, UNSPECIFIED SNOMED Code(s): 29882545 Plan: Supportive care Clear liquid diet Nothing by mouth after midnight Will attempt colonoscopy again tomorrow, after extensive discussion with the patient she has agreed to continue her bowel prep and will finish the 3/4 gallon remaining from yesterday as well as be given Dulcolax 20 mg oral Continue to monitor hemoglobin and transfuse as needed Continue to monitor for signs or symptoms of GI bleeding Thank you for allowing us to participate in the care of this patient we will continue to follow
[2018-10-05 06:16] LABS: Glucose,Whole Blood 96 mg/dL (75-99)
[2018-10-05] MEDS: INSULIN ASPART (NovoLOG) 100 UNIT/ML VIAL SQ SCH ×4 (06:16→21:02)
[2018-10-05 06:49] LABS: Anisocytosis Slight; Basophils % (A) 0 %; Eosinophils # (A) 0.3 k/uL (0-0.7); Eosinophils % (A) 3 %; HCT 24.9 % (34.0-46.0); HGB 7.8 gm/dL (11.4-16.0); Hypochromasia Marked; Lymphocytes # (A) 0.9 k/uL (1.0-4.8); Lymphocytes % (A) 8 %; MCH 27.3 pg (25.0-35.0); MCHC 31.2 g/dL (31.0-37.0); MCV 87.5 fL (80.0-100.0); Monocytes # (A) 0.6 k/uL (0-1.0); Monocytes % (A) 6 %; Neutrophils # (A) 8.8 k/uL (1.3-7.7); Neutrophils % (A) 82 %; Platelet Count 211 k/uL (150-450); Poikilocytosis Moderate; RBC 2.85 m/uL (3.80-5.40); RDW 19.2 % (11.5-15.5); WBC 10.8 k/uL (3.8-10.6)
[2018-10-05 06:51] LABS: Calcium 8.2 mg/dL (8.4-10.2); Potassium 3.4 mmol/L (3.5-5.1)
[2018-10-05] MEDS: CINACALCET 30 MG TAB PO SCH ×2 (08:42→18:11)
[2018-10-05] MEDS: METOPROLOL TARTRATE 12.5 MG TAB PO SCH ×2 (08:42→18:11)
[2018-10-05] MEDS: SODIUM BICARBONATE TAB 650 MG TAB PO SCH ×2 (08:42→18:12)
[2018-10-05] MEDS ORDERED: NA PHOS,M-B/NA PHOS,DI-BA 133 ML ENEMA RECTAL ONE (10:23)
[2018-10-05 12:16] LABS: Glucose,Whole Blood 86 mg/dL (75-99)
[2018-10-05] MEDS ORDERED: POTASSIUM CHLORIDE ER 20 MEQ TAB.ER PO STA (16:26)
[2018-10-05 16:52] LABS: Glucose,Whole Blood 84 mg/dL (75-99)
[2018-10-05] MEDS ORDERED: PROPOFOL 10 MG/ML 20 ML VIAL IV ONE (17:26)
--- NOTE | 2018-10-05 17:44 | P.PCN ---
Date of Procedure: 10/05/18 Procedure(s) Performed: BRIEF HISTORY: Patient is a 67-year-old pleasant female, admitted to the hospital with severe symptomatic anemia and hemoglobin of 5.5 g/dL. She had an upper endoscopy done [address] Segal which showed gastritis. She was recommended a colonoscopy but refused at that time. She is readmitted with recurrent anemia and hence scheduled for an echo colonoscopy today. PROCEDURE PERFORMED: Colonoscopy. PREOPERATIVE DIAGNOSIS: Symptomatic anemia and a negative upper endoscopy 2 weeks. IV sedation per Anesthesia. PROCEDURE: After informed consent was obtained, the patient, was brought into the endoscopy unit. IV sedation was administered by Anesthesia under continuous monitoring. Digital rectal examination was normal. Initially the Olympus CF-160 flexible video colonoscope was then inserted in the rectum, gradually advanced into the cecum without any difficulty. Careful examination was performed as the scope was gradually being withdrawn. Ileocecal valve and the appendiceal orifice were visualized and appeared normal. Prep was fair.. Mucosa of the cecum, ascending colon, transverse colon, descending colon, sigmoid colon, and rectum appeared normal. Retroflexion was performed in the rectum and no lesions were seen. The patient tolerated the procedure well. IMPRESSION: Normal-appearing colon from rectum to cecum with no evidence of colitis or colorectal neoplasia . RECOMMENDATIONS: Findings of this examination were discussed with the patient . She will be started on a regular diet..
[2018-10-05 20:58] LABS: Glucose,Whole Blood 101 mg/dL (75-99)
[2018-10-05] MEDS: ATORVASTATIN 80 MG TAB PO SCH (21:11)
--- NOTE | 2018-10-05 23:07 | PN ---
PROGRESS NOTE DATE OF SERVICE: 10/05/2018. PRESENTING COMPLAINT: Anemia. INTERVAL HISTORY: Patient with recent coronary bypass on August 23. Had 2 admissions upper gastrointestinal bleed. Last admission did have an EGD and a small capsule study that were unremarkable. This admission the patient has yet again presented with anemia. Patient has required a total of 4 units of blood on this admission. Hemoglobin this morning 7.8. Also got significant bruising on the right upper extremity. This afternoon when I saw the patient she was awaiting her colonoscopy. Later in the day that was done, that came back to be unremarkable. Patient does continue to feel weak and tired. REVIEW OF SYSTEMS: Done for constitutional, cardiovascular, GI, pulmonary; relevant findings as above. CURRENT MEDICATIONS: Reviewed. PHYSICAL EXAMINATION: VITAL SIGNS: Temperature 98, pulse 75, respiratory rate 18, blood pressure 130/63, pulse ox 97% on 3 L. GENERAL APPEARANCE: Sitting up in a chair, tired-appearing. EYES: Pupils equal. Conjunctivae pale. NECK: JVD unable to assess. Mass not palpable. RESPIRATORY: Effort increased. LUNGS: Decreased breath sounds. CARDIOVASCULAR: 1st and 2nd sounds normal. Some edema present. ABDOMEN: Soft, nontender. Liver and spleen not palpable. PSYCHIATRY: Tired but able to answer simple questions. EXTREMITIES: Large bruising hematoma in the middle of the right upper arm and lower arm. INVESTIGATIONS: White count 10.8, hemoglobin 7.8, BUN 52, creatinine 1.52. ASSESSMENT: 1. Acute severe gastrointestinal bleed, recurrent, requiring a total of 4 units of blood on this admission. Colonoscopy also unremarkable. Suspect small bowel bleed. Does not show the quality of the small bowel capsule study, will have to look into that. 2. Acute severe blood loss anemia requiring a total of 4 units of blood. 3. Coronary artery disease with history of bypass on August 20. 4. Chronic congestive heart failure from systolic dysfunction, EF 35 to 40 percent, underlying coronary artery disease. 5. Hypertensive heart disease. 6. Paroxysmal atrial fibrillation in sinus rhythm. 7. Essential hypertension. 8. Primary osteoarthritis. 9. Complete occlusion of the right internal carotid artery and 80% occlusion of the left internal carotid artery. 10.Chronic obstructive pulmonary disease. 11.Peripheral artery disease. 12.Chronic venous insufficiency lower extremity. 13.Hypercalcemia in a patient with known hyperparathyroidism. 14.Lower extremity wounds recently treated with antibiotics. 15.Acute renal failure likely prerenal with improvement. PLAN: Continue current medication and treatment plan. Due to recurrent bleeds, hold off Eliquis. The patient also has significant hematoma on the right upper extremity. The risk of bleeding is far more than any benefit at this point. We will resume the aspirin in the next 24 hours. Prognosis remains guarded. KIARA / ANITAN: [id number] /
[2018-10-05 23:21] VITALS: RESP 18
[2018-10-06 06:12] LABS: Glucose,Whole Blood 78 mg/dL (75-99)
[2018-10-06] MEDS: INSULIN ASPART (NovoLOG) 100 UNIT/ML VIAL SQ SCH ×4 (06:38→21:31)
[2018-10-06 08:23] LABS: Calcium 8.5 mg/dL (8.4-10.2)
[2018-10-06 08:45] LABS: Anisocytosis Slight; Basophils % (A) 0 %; Eosinophils # (A) 0.2 k/uL (0-0.7); Eosinophils % (A) 2 %; HCT 26.7 % (34.0-46.0); HGB 8.3 gm/dL (11.4-16.0); Hypochromasia Marked; Lymphocytes # (A) 0.6 k/uL (1.0-4.8); Lymphocytes % (A) 6 %; MCH 27.4 pg (25.0-35.0); MCHC 31.2 g/dL (31.0-37.0); MCV 87.8 fL (80.0-100.0); Monocytes # (A) 0.5 k/uL (0-1.0); Monocytes % (A) 5 %; Neutrophils # (A) 8.6 k/uL (1.3-7.7); Neutrophils % (A) 86 %; Platelet Count 219 k/uL (150-450); Poikilocytosis Marked; RBC 3.04 m/uL (3.80-5.40); RDW 19.8 % (11.5-15.5); WBC 10.1 k/uL (3.8-10.6)
[2018-10-06] MEDS: CINACALCET 30 MG TAB PO SCH ×2 (09:10→17:54)
[2018-10-06] MEDS: METOPROLOL TARTRATE 12.5 MG TAB PO SCH ×2 (09:10→17:53)
[2018-10-06] MEDS: SODIUM BICARBONATE TAB 650 MG TAB PO SCH ×2 (09:10→17:55)
--- NOTE | 2018-10-06 11:20 | PN ---
PROGRESS NOTE DATE OF DICTATION: October 06, 2018. REQUESTING PHYSICIAN: Dr. Almaraz The patient is a 67-year-old pleasant white female admitted to hospital with severe symptomatic anemia and hemoglobin of 5.5 requiring blood transfusion. She had an upper endoscopy [address] Lowe that showed some gastritis. Colonoscopy done yesterday by me was unremarkable. The patient is doing well. She denies any complaints today. No abdominal pain. She reports no nausea, vomiting. Complains of some shortness of breath. PHYSICAL EXAMINATION: Appears comfortable. No apparent distress. VITAL SIGNS: Stable. Blood pressure is 132/86, pulse rate 80 per minute and afebrile. HEENT examination unremarkable. Conjunctivae pink. Sclerae anicteric. Oral cavity no lesions. NECK: No JVD or lymph node enlargement. CHEST: Clear to auscultation. HEART: Regular rate and rhythm. ABDOMEN: Soft. Bowel sounds are positive. It was obese. EXTREMITIES: Bruises on the left upper extremity. Extremities no pedal edema. SKIN no rashes. NEUROLOGIC: Alert and oriented x3. No focal deficits. LABS: From today showed a hemoglobin of 8.3, WBC 10.1, platelets are 219. Basic metabolic panel showed a BUN of 25, creatinine 1.40. IMPRESSION: Normocytic normochromic anemia with no clinical evidence of active bleeding. She is status post EGD 2 weeks ago that showed gastritis. Colonoscopy yesterday was unremarkable. Small bowel capsule endoscopy done 2 weeks ago was also unremarkable. Anemia most likely related to anemia of chronic disease. May have a component of occult blood loss, but clinically no active bleeding. RECOMMENDATIONS: Monitor CBC closely. Resume Eliquis. We will sign off at this time. Please call us if needed. Thank you for this consultation. MMODL / IJN: [id number] /
[2018-10-06 12:14] LABS: Glucose,Whole Blood 90 mg/dL (75-99)
[2018-10-06 16:58] LABS: Glucose,Whole Blood 86 mg/dL (75-99)
[2018-10-06] MEDS: ATORVASTATIN 80 MG TAB PO SCH (21:10)
[2018-10-06 21:30] LABS: Glucose,Whole Blood 113 mg/dL (75-99)
--- NOTE | 2018-10-06 23:03 | PN ---
PROGRESS NOTE DATE OF SERVICE: October 06, 2018. PRESENT COMPLAINT: Anemia. INTERVAL HISTORY: This patient presented yet again with significant anemia, required 4 units of blood on this admission, colonoscopy has been unremarkable. Tired. Sitting up. Did tolerate some diet. Feels a bit tired. REVIEW OF SYSTEMS: Done for constitutional, cardiovascular, GI, pulmonary and findings as above. CURRENT MEDICATIONS: Reviewed. PHYSICAL EXAMINATION: VITAL SIGNS: Temperature 97.3, pulse 61, respiratory 18, blood pressure 109/71, pulse ox 97% on 3 L. GENERAL APPEARANCE: Sitting up in a chair. Tired. Awake. EYES: Pupils equal. Conjunctivae pale. NECK: JVD unable to assess. Mass not palpable. RESPIRATORY: Effort increased. LUNGS: Decreased breath sounds. CARDIOVASCULAR: 1st and 2nd sounds normal. Some edema present. ABDOMEN: Soft, nontender. Liver and spleen not palpable. PSYCHIATRY: Tired. Answering questions. EXTREMITIES: Large bruising hematoma on the right upper extremity. Lower extremity wounds have healed except for one on the left leg just above the knee. INVESTIGATIONS: White count 10.1, hemoglobin 8.3, BUN 45, creatinine 1.40. ASSESSMENT: 1. Acute severe gastrointestinal bleed, recurrent, requiring a total of 4 units of blood on this admission. Both EGD and colonoscopy capsule study was unremarkable. 2. Acute severe blood loss anemia requiring a total of 4 units of blood. 3. Coronary artery disease, history of bypass on August 20. 4. Chronic congestive heart failure, EF 35-40 percent from underlying coronary artery disease. 5. Hypertensive heart disease. 6. Paroxysmal atrial fibrillation in sinus rhythm. 7. Essential hypertension. 8. Primary osteoarthritis. 9. Complete occlusion of the right internal carotid artery and 80% occlusion of the left internal carotid artery. 10.Chronic obstructive pulmonary disease. 11.Peripheral artery disease. 12.Chronic venous insufficiency lower extremity. 13.Hypercalcemia in a patient with known hyperparathyroidism. 14.Lower extremity wounds recently on antibiotics. Local wound care to continue. 15.Acute renal failure likely prerenal with improvement. PLAN: No further workup per GI. We will temporarily hold off on Eliquis. If hemoglobin remains stable tomorrow morning, patient can return to the ECF. MMODL / IJN: [id number] /
[2018-10-07 06:25] LABS: Glucose,Whole Blood 85 mg/dL (75-99)
[2018-10-07] MEDS: INSULIN ASPART (NovoLOG) 100 UNIT/ML VIAL SQ SCH ×2 (06:29→11:58)
[2018-10-07 06:48] LABS: Anisocytosis Slight; Basophils % (A) 0 %; Eosinophils # (A) 0.1 k/uL (0-0.7); Eosinophils % (A) 2 %; HCT 27.6 % (34.0-46.0); HGB 8.1 gm/dL (11.4-16.0); Hypochromasia Marked; Lymphocytes # (A) 0.5 k/uL (1.0-4.8); Lymphocytes % (A) 8 %; MCH 26.6 pg (25.0-35.0); MCHC 29.3 g/dL (31.0-37.0); MCV 90.6 fL (80.0-100.0); Mean Platelet Volume 9.3; Monocytes # (A) 0.4 k/uL (0-1.0); Monocytes % (A) 6 %; Neutrophils # (A) 5.3 k/uL (1.3-7.7); Neutrophils % (A) 82 %; Platelet Count 204 k/uL (150-450); Poikilocytosis Moderate; RBC 3.04 m/uL (3.80-5.40); RDW 18.7 % (11.5-15.5); WBC 6.5 k/uL (3.8-10.6)
[2018-10-07 06:58] LABS: Calcium 8.4 mg/dL (8.4-10.2); Potassium 3.6 mmol/L (3.5-5.1)
[2018-10-07] MEDS: METOPROLOL TARTRATE 12.5 MG TAB PO SCH (08:07)
[2018-10-07] MEDS: CINACALCET 30 MG TAB PO SCH (08:07)
[2018-10-07] MEDS: SODIUM BICARBONATE TAB 650 MG TAB PO SCH (08:07)
[2018-10-07] MEDS ORDERED: ASPIRIN 81 MG PO SCH (09:00)
[2018-10-07] MEDS ORDERED: FUROSEMIDE 20 MG TAB PO SCH (09:00)
[2018-10-07 11:49] LABS: Glucose,Whole Blood 98 mg/dL (75-99)
--- NOTE | 2018-10-07 12:52 | DS ---
DISCHARGE SUMMARY DATE OF ADMISSION: 10/02/2018 DATE OF DISCHARGE: 10/07/2018 FINAL DIAGNOSES: 1. Acute severe gastrointestinal bleed, recurrent, requiring 4 units of blood on this admission. Both EGD, colonoscopy and recent capsule study were all negative. 2. Acute severe blood loss anemia requiring 4 units of blood. 3. Coronary artery disease, history of coronary bypass on August 20, 2018. 4. Chronic congestive heart failure, ejection fraction 35% to 40% from underlying coronary artery disease. 5. Hypertensive heart disease. 6. Paroxysmal atrial fibrillation, remains in sinus rhythm. 7. Essential hypertension. 8. Primary osteoarthritis. 9. Complete occlusion of right internal carotid artery and 80% occlusion of the left internal carotid artery. 10.Chronic obstructive pulmonary disease. 11.Peripheral arterial disease. 12.Chronic venous insufficiency lower extremity. 13.Hypercalcemia in a patient with known hyperparathyroidism. 14.Lower extremity wounds recently on antibiotics, much healed. 15.Acute renal failure likely prerenal with diuresis. HOSPITAL COURSE: This patient who had a recent coronary artery bypass as above, has had recently episodes of GI bleed, dark stools. On last admission did have an EGD and a small bowel capsule study that did not show up any source. Again, patient presented with drop in hemoglobin, did drop the hemoglobin down to 5.5. The patient did get a total of 4 units of blood. Did have colonoscopy that was unremarkable. The patient has been put back on her aspirin but I have held off on the patient's Eliquis which can be resumed after 5 days. Close eye has to be kept on patient's status. The patient also did have a hematoma for IV infiltrating on the right upper extremity, which is slowly down. Arm is to be kept above the heart. CONSULTATIONS: Dr. Emeli Olson/Dr. Lowe from GI. PHYSICAL EXAMINATION: On examination, temperature 97.5, pulse 69, respirations 18, blood pressure 103/59, pulse ox 99% on 3 L. LUNGS: Decreased breath sounds. Healing wounds on the lower extremity. Bruising on the right upper extremity. PSYCH: AO x3. INVESTIGATIONS: White count 6.5, hemoglobin 8.1. BUN 41, creatinine 1.24. DISCHARGE MEDICATIONS: 1. Eliquis 5 mg p.o. b.i.d., start on 10/12/2018. 2. Vitamin D3, 2000 units p.o. daily. 3. Tylenol 650 mg q.4 p.r.n. 4. Milk of magnesia 2400 mg daily p.r.n. 5. Aspirin 81 mg p.o. daily. 6. Lipitor 80 mg p.o. q.h.s. 7. Cepacol 1 lozenge q.2 p.r.n. 8. Dulcolax 10 mg rectal daily p.r.n. 9. Sensipar 60 mg p.o. b.i.d. 10.LASIX 20 mg b.i.d. 11.NovoLog per scale. 12.DuoNeb q.4 p.r.n. 13.Lopressor 12.5 b.i.d. 14.Adult Fleet 133 mL rectal daily p.r.n. 15.Protonix 40 mg p.o. daily. 16.Potassium 20 mEq p.o. daily. 17.Senokot-S 2 tablets p.o. q.h.s. 18.Sodium bicarb 650 mg b.i.d. 19.Instant [place] breakfast 1 packet p.o. daily. DISPOSITION: [facility]. Follow up with Cardiology in 1 week. Follow up with Dr. Howard at the [facility]. Follow up with Dr. Saunders, visiting Physician, after discharged from the [facility]. Follow up with Dr. Calvin Lowe in 10 days. CBC, BMP in 3 to 5 days. ADDITIONAL NOTE: Patient to start Eliquis on 10/12/2018. MMODL / IJN: [id number] /
[2018-10-07 13:49] VITALS: BP 150/72; PULSE 66; TEMP 97.4
== END 2018-10-07 13:48 | DRG 377 ==
LOC: EC 14:03 → 3SCARD 16:31
PROVIDERS: ADMIT Hospitalist; ATTEND Hospitalist
PROC: 30233N1 Transfusion of Nonautologous Red Blood Cells into Peripheral Vein, Percutaneous Approach (ICD-10-PCS; 2018-10-02)
PROC: 05HY33Z Insertion of Infusion Device into Upper Vein, Percutaneous Approach (ICD-10-PCS; 2018-10-04)
PROC: 0DJD8ZZ Inspection of Lower Intestinal Tract, Via Natural or Artificial Opening Endoscopic (ICD-10-PCS; principal; 2018-10-05 14:30)
DX: K92.2 Gastrointestinal hemorrhage, unspecified (principal); I21.A1 Myocardial infarction type 2; I50.23 Acute on chronic systolic (congestive) heart failure; D62 Acute posthemorrhagic anemia; N17.9 Acute kidney failure, unspecified; I11.0 Hypertensive heart disease with heart failure; I48.0 Paroxysmal atrial fibrillation; I65.23 Occlusion and stenosis of bilateral carotid arteries; E66.01 Morbid (severe) obesity due to excess calories; J44.9 Chronic obstructive pulmonary disease, unspecified; M79.81 Nontraumatic hematoma of soft tissue; D63.8 Anemia in other chronic diseases classified elsewhere; E21.3 Hyperparathyroidism, unspecified; E78.5 Hyperlipidemia, unspecified; E86.9 Volume depletion, unspecified; I25.10 Atherosclerotic heart disease of native coronary artery without angina pectoris; I25.2 Old myocardial infarction; I73.9 Peripheral vascular disease, unspecified; I87.2 Venous insufficiency (chronic) (peripheral); M19.91 Primary osteoarthritis, unspecified site; H26.9 Unspecified cataract; E11.9 Type 2 diabetes mellitus without complications; Z79.01 Long term (current) use of anticoagulants; Z79.82 Long term (current) use of aspirin; Z79.899 Other long term (current) drug therapy; Z79.4 Long term (current) use of insulin; Z85.42 Personal history of malignant neoplasm of other parts of uterus; Z87.891 Personal history of nicotine dependence; Z90.710 Acquired absence of both cervix and uterus; Z95.1 Presence of aortocoronary bypass graft; Z95.5 Presence of coronary angioplasty implant and graft; Z96.653 Presence of artificial knee joint, bilateral
CPT/HCPCS: 36410; 36415; 45378; 71045; 76937; 80048; 82272; 83605; 83735; 84484; 85025; 85027; 86850; 86900; 86901; 86920; 93005; 96374; 99285

== ENCOUNTER 2018-10-14 11:57 | Inpatient (IN) | payer MEDICARE, OTHER ==
[2018-10-14] MEDS ORDERED: SODIUM CHLORIDE 0.9% 500 ML 500 ML IV STA (12:22)
[2018-10-14] MEDS ORDERED: PANTOPRAZOLE 40 MG/10 ML VIAL IVP STA (12:22)
--- NOTE | 2018-10-14 12:49 | ED ---
GI Bleed HPI - General Source: patient, EMS, RN notes reviewed Mode of arrival: EMS Limitations: no limitations <Nabil Aldana - Last Filed: 10/14/18 14:58> <Fabian Bledsoe - Last Filed: 10/14/18 15:41> - General Chief complaint: GI Bleed Stated complaint: GI Bleed Time Seen by Provider: 10/14/18 12:09 - History of Present Illness Initial comments: 67-year-old female presents emergency Department from [facility] with chief complaint of GI bleed. Patient has had ongoing bleeding and was recently admitted for. Patient did have open-heart surgery in August. Patient denies any current chest pain shortness breath. Patient sent him to noticing no black stools which she has recurrent. Patient denies any nausea vomiting diarrhea constipation. Patient states she is currently on Eliquis. (Nabil Aldana) - Related Data Home Medications Medication Instructions Recorded Confirmed Apixaban [Eliquis] 5 mg PO BID@0800,1700 10/27/17 10/14/18 Cholecalciferol (Vitamin D3) 2,000 unit PO DAILY@1700 08/15/18 10/14/18 [Vitamin D3] Aspirin [Adult Low Dose Aspirin EC] 81 mg PO DAILY@1700 09/21/18 10/14/18 Atorvastatin [Lipitor] 80 mg PO HS@2100 09/21/18 10/14/18 Benzocaine/Menthol Lozeng [Cepacol 1 lozenge MUCOUS MEM Q2H PRN 09/21/18 10/14/18 lozenge] Bisacodyl [Dulcolax] 10 mg RECTAL DAILY PRN 09/21/18 10/14/18 Cinacalcet [Sensipar] 60 mg PO BID@0800,1700 09/21/18 10/14/18 Furosemide [Lasix] 20 mg PO BID@0600,1400 09/21/18 10/14/18 INSULIN ASPART (NovoLOG) [NovoLOG See Protocol SQ ACHS 09/21/18 10/14/18 (formulary)] Ipratropium-Albuterol Nebulize 3 ml INHALATION RT-Q4H PRN 09/21/18 10/14/18 [Duoneb 0.5 mg-3 mg/3 ml Soln] Metoprolol Tartrate [Lopressor] 12.5 mg PO BID@0800,1700 09/21/18 10/14/18 Na Phos,M-B/Na Phos,Di-Ba [Fleet 133 ml RECTAL DAILY PRN 09/21/18 10/14/18 Adult] Pantoprazole [Protonix] 40 mg PO DAILY@0600 09/21/18 10/14/18 Potassium Chloride ER [K-Dur 20] 20 meq PO DAILY@1700 09/21/18 10/14/18 Sennosides-Docusate Sodium 2 tab PO HS PRN 09/21/18 10/14/18 [Senokot-S] Sodium Bicarbonate Tab 650 mg PO BID@0800,1700 09/21/18 10/14/18 [place] Instant Breakfast 1 packet PO DAILY@0800 10/02/18 10/14/18 Previous Rx's Medication Instructions Recorded Acetaminophen Tab [Tylenol] 650 mg PO Q4HR PRN tab 08/28/18 Magnesium Hydroxide [Milk of 2,400 mg PO DAILY PRN ml 08/28/18 Magnesia Concentrate] Allergies Allergy/AdvReac Type Severity Reaction Status Date / Time No Known Allergies Allergy Verified 10/14/18 12:27 Review of Systems ROS Other: All systems not noted in ROS Statement are negative. <Nabil Aldana - Last Filed: 10/14/18 14:58> ROS Other: All systems not noted in ROS Statement are negative. <Fabian Bledsoe - Last Filed: 10/14/18 15:41> ROS Statement: Those systems with pertinent positive or pertinent negative responses have been documented in the HPI. Past Medical History Past Medical History: Atrial Fibrillation, Coronary Artery Disease (CAD), Chest Pain / Angina, COPD, Hyperlipidemia, Hypertension, Myocardial Infarction (non Q- wave), Osteoarthritis (OA), Vascular Disorder Additional Past Medical History / Comment(s): UTERINE CANCER. LT CATARACT, morbid obesity. Last Myocardial Infarction Date:: 2003 History of Any Multi-Drug Resistant Organisms: None Reported Past Surgical History: Coronary Bypass/CABG, Heart Catheterization With Stent, Hysterectomy, Orthopedic Surgery Additional Past Surgical History / Comment(s): UZMA KNEE REPLACMENTS, RT ANKLE- METAL PLATE, RT ARM SX REPAIR D/T LACERATION. RT THUMB TENDON REPAIR," LT FOOT GREAT TOE BONE REMOVED". Off-pump 3 vessel CABG 08/23/2018 Past Anesthesia/Blood Transfusion Reactions: Blood Transfusion Reaction Additional Past Anesthesia/Blood Transfusion Reaction / Comment(s): PAST BLOOD [id number] Date of Last Stent Placement:: 2003 Past Psychological History: No Psychological Hx Reported Smoking Status: Former smoker Past Alcohol Use History: None Reported Past Drug Use History: None Reported - Past Family History Mother Family Medical History: No Reported History Father History Unknown: Yes <Nabil Aldana - Last Filed: 10/14/18 14:58> General Exam Limitations: no limitations General appearance: alert, in no apparent distress Head exam: Present: atraumatic, normocephalic, normal inspection Eye exam: Present: normal appearance, PERRL, EOMI. Absent: scleral icterus, conjunctival injection, periorbital swelling ENT exam: Present: normal exam, normal oropharynx, mucous membranes moist Neck exam: Present: normal inspection. Absent: tenderness, meningismus, lymphadenopathy Respiratory exam: Present: normal lung sounds bilaterally. Absent: respiratory distress, wheezes, rales, rhonchi, stridor Cardiovascular Exam: Present: regular rate, normal rhythm, normal heart sounds. Absent: systolic murmur, diastolic murmur, rubs, gallop, clicks GI/Abdominal exam: Present: soft, normal bowel sounds. Absent: distended, tenderness, guarding, rebound, rigid Neurological exam: Present: alert, oriented X3, CN II-XII intact Skin exam: Present: warm, dry, intact, normal color. Absent: rash <Nabil Aldana - Last Filed: 10/14/18 14:58> Course Vital Signs 10/14/18 10/14/18 10/14/18 12:02 14:00 15:22 Temperature 97.8 F Pulse Rate 77 66 87 Respiratory 18 18 18 Rate Blood Pressure 90/54 133/97 108/53 O2 Sat by Pulse 98 93 L 94 L Oximetry Medical Decision Making - Lab Data Result diagrams: 10/14/18 13:49 10/14/18 13:49 <Nabil Aldana - Last Filed: 10/14/18 14:58> - Lab Data Result diagrams: 10/14/18 13:49 10/14/18 13:49 <Fabian Bledsoe - Last Filed: 10/14/18 15:41> - Medical Decision Making 67-year-old female presents emergency Department for ongoing black stools. Patient's hemoglobin 6.2. Patient had recent hospitalization for similar complaint. Patient was given Protonix, ordered 2 units of blood at this time. Patient's troponin is elevated though it is chronically elevated and less than usual. Patient has no complaints of chest pain. Patient will be admitted for transfusion and further evaluation. (Nabil Aldana) Patient reevaluated and reexamined by myself, Dr. Bledsoe. I do agree with GEOVANNA doyle. This includes diagnostic interpretation and treatment plan. Patient is updated. Abdomen is soft and non-tender. Case is also discussed in detail with Dr. Almaraz, who will admit For Dr. Howard. (Fabian Bledsoe) - Lab Data Lab Results 10/14/18 10/14/18 10/14/18 Range/Units 13:49 13:49 13:49 WBC 10.6 (3.8-10.6) k/uL RBC 2.32 L (3.80-5.40) m/uL Hgb 6.2 L* D (11.4-16.0) gm/dL Hct 21.9 L (34.0-46.0) % MCV 94.3 D (80.0-100.0) fL MCH 26.7 (25.0-35.0) pg MCHC 28.3 L (31.0-37.0) g/dL RDW 19.1 H (11.5-15.5) % Plt Count 227 (150-450) k/uL Neutrophils % 83 % Lymphocytes % 11 % Monocytes % 4 % Eosinophils % 1 % Basophils % 0 % Neutrophils # 8.8 H (1.3-7.7) k/uL Lymphocytes # 1.2 (1.0-4.8) k/uL Monocytes # 0.4 (0-1.0) k/uL Eosinophils # 0.1 (0-0.7) k/uL Basophils # 0.1 (0-0.2) k/uL Hypochromasia Marked Poikilocytosis Slight Anisocytosis Slight Macrocytosis Slight APTT 23.1 (22.0-30.0) sec Sodium 144 (137-145) mmol/L Potassium 4.7 (3.5-5.1) mmol/L Chloride 112 H (98-107) mmol/L Carbon Dioxide 27 (22-30) mmol/L Anion Gap 5 mmol/L BUN 52 H (7-17) mg/dL Creatinine 1.07 H (0.52-1.04) mg/dL Est GFR (CKD-EPI)AfAm 62 (>60 ml/min/1.73 sqM) Est GFR (CKD-EPI)NonAf 53 (>60 ml/min/1.73 sqM) Glucose 92 (74-99) mg/dL Calcium 8.1 L (8.4-10.2) mg/dL Total Bilirubin 1.5 H (0.2-1.3) mg/dL AST 39 H (14-36) U/L ALT 32 (9-52) U/L Alkaline Phosphatase 98 (38-126) U/L Troponin I (0.000-0.034) ng/mL Total Protein 5.3 L (6.3-8.2) g/dL Albumin 2.4 L (3.5-5.0) g/dL 10/14/18 Range/Units 13:49 WBC (3.8-10.6) k/uL RBC (3.80-5.40) m/uL Hgb (11.4-16.0) gm/dL Hct (34.0-46.0) % MCV (80.0-100.0) fL MCH (25.0-35.0) pg MCHC (31.0-37.0) g/dL RDW (11.5-15.5) % Plt Count (150-450) k/uL Neutrophils % % Lymphocytes % % Monocytes % % Eosinophils % % Basophils % % Neutrophils # (1.3-7.7) k/uL Lymphocytes # (1.0-4.8) k/uL Monocytes # (0-1.0) k/uL Eosinophils # (0-0.7) k/uL Basophils # (0-0.2) k/uL Hypochromasia Poikilocytosis Anisocytosis Macrocytosis APTT (22.0-30.0) sec Sodium (137-145) mmol/L Potassium (3.5-5.1) mmol/L Chloride (98-107) mmol/L Carbon Dioxide (22-30) mmol/L Anion Gap mmol/L BUN (7-17) mg/dL Creatinine (0.52-1.04) mg/dL Est GFR (CKD-EPI)AfAm (>60 ml/min/1.73 sqM) Est GFR (CKD-EPI)NonAf (>60 ml/min/1.73 sqM) Glucose (74-99) mg/dL Calcium (8.4-10.2) mg/dL Total Bilirubin (0.2-1.3) mg/dL AST (14-36) U/L ALT (9-52) U/L Alkaline Phosphatase (38-126) U/L Troponin I 0.044 H* (0.000-0.034) ng/mL Total Protein (6.3-8.2) g/dL Albumin (3.5-5.0) g/dL Disposition <Nabil Aldana - Last Filed: 10/14/18 14:58> <Fabian Bledsoe - Last Filed: 10/14/18 15:41> Clinical Impression: Melena, GI bleed, Anemia Disposition: ADMITTED IP TO THIS HOSP Condition: Fair Referrals: Vidal Howard MD [Primary Care Provider] - 1-2 days
[2018-10-14 14:19] LABS: Albumin 2.4 g/dL (3.5-5.0); Calcium 8.1 mg/dL (8.4-10.2); Potassium 4.7 mmol/L (3.5-5.1); Total Bilirubin 1.5 mg/dL (0.2-1.3); Total Protein 5.3 g/dL (6.3-8.2)
[2018-10-14 14:21] LABS: Anisocytosis Slight; Basophils # (A) 0.1 k/uL (0-0.2); Basophils % (A) 0 %; Eosinophils # (A) 0.1 k/uL (0-0.7); Eosinophils % (A) 1 %; HCT 21.9 % (34.0-46.0); Hypochromasia Marked; Lymphocytes # (A) 1.2 k/uL (1.0-4.8); Lymphocytes % (A) 11 %; MCH 26.7 pg (25.0-35.0); MCHC 28.3 g/dL (31.0-37.0); Macrocytosis Slight; Mean Platelet Volume 9.7; Monocytes # (A) 0.4 k/uL (0-1.0); Monocytes % (A) 4 %; Neutrophils # (A) 8.8 k/uL (1.3-7.7); Neutrophils % (A) 83 %; Platelet Count 227 k/uL (150-450); Poikilocytosis Slight; RBC 2.32 m/uL (3.80-5.40); RDW 19.1 % (11.5-15.5); WBC 10.6 k/uL (3.8-10.6)
[2018-10-14 14:24] LABS: HGB 6.2 gm/dL (11.4-16.0); MCV 94.3 fL (80.0-100.0)
[2018-10-14] MEDS ORDERED: ACETAMINOPHEN TAB 325 MG TAB PO PRN ×2 (14:53→14:54)
[2018-10-14] MEDS ORDERED: NALOXONE 0.4 MG/ML 1 ML VIAL IV PRN (14:53)
[2018-10-14] MEDS: METOPROLOL TARTRATE 12.5 MG TAB PO SCH (23:29)
[2018-10-14] MEDS: SODIUM BICARBONATE TAB 650 MG TAB PO SCH (23:29)
[2018-10-14] MEDS: CINACALCET 30 MG TAB PO SCH (23:29)
[2018-10-14] MEDS: POTASSIUM CHLORIDE ER 20 MEQ TAB.ER PO SCH (23:29)
[2018-10-14] MEDS: PANTOPRAZOLE 40 MG/10 ML VIAL IVP SCH (23:36)
[2018-10-14] MEDS: ATORVASTATIN 80 MG TAB PO SCH (23:36)
[2018-10-15 00:30] LABS: Glucose,Whole Blood 117 mg/dL (75-99)
[2018-10-15] MEDS: SODIUM CHLORIDE 0.9% 500 ML 500 ML IV SCH ×2 (01:34→23:34)
[2018-10-15 04:35] LABS: Appearance,Urine Clear (Clear); Bilirubin,Urine Negative (Negative); Blood,Urine Negative (Negative); Color,Urine Yellow; Glucose,Urine (UA) Negative (Negative); Ketones,Urine Negative (Negative); Leukocyte Esterase,Urine Negative (Negative); Nitrite,Urine Negative (Negative); Protein,Urine Negative (Negative); Specific Gravity,Urine 1.016 (1.001-1.035); Urobilinogen,Urine <2.0 mg/dL (<2.0)
[2018-10-15 06:00] LABS: Anisocytosis Slight; Basophils % (A) 0 %; Eosinophils # (A) 0.1 k/uL (0-0.7); Eosinophils % (A) 1 %; HCT 22.2 % (34.0-46.0); HGB 7.5 gm/dL (11.4-16.0); Hypochromasia Moderate; Lymphocytes # (A) 1.2 k/uL (1.0-4.8); Lymphocytes % (A) 11 %; MCH 29.4 pg (25.0-35.0); MCHC 33.7 g/dL (31.0-37.0); Mean Platelet Volume 10.9; Monocytes # (A) 0.6 k/uL (0-1.0); Monocytes % (A) 5 %; Neutrophils # (A) 9.1 k/uL (1.3-7.7); Neutrophils % (A) 81 %; Platelet Count 171 k/uL (150-450); Poikilocytosis Marked; RBC 2.55 m/uL (3.80-5.40); WBC 11.2 k/uL (3.8-10.6)
[2018-10-15 06:05] LABS: MCV 87.3 fL (80.0-100.0)
[2018-10-15 06:11] LABS: Calcium 8.1 mg/dL (8.4-10.2); Magnesium 1.7 mg/dL (1.6-2.3); Phosphorus 2.9 mg/dL (2.5-4.5); Potassium 4.6 mmol/L (3.5-5.1)
[2018-10-15] MEDS: FUROSEMIDE 20 MG TAB PO SCH ×2 (07:11→14:20)
--- NOTE | 2018-10-15 07:26 | XR ---
EXAMINATION TYPE: XR chest 1V DATE OF EXAM: 10/15/2018 CLINICAL HISTORY: Difficulty breathing progress study. TECHNIQUE: Single AP portable semiupright view of the chest is obtained. COMPARISON: Chest x-ray from October 03, 2018 and older x-rays. FINDINGS: Overlying sternal wires and mediastinal clips as well as left-sided cardiac closure device are all redemonstrated. There is persistent cardiomegaly with atherosclerotic thoracic aorta. There is persistent moderate right and small left pleural effusion with associated right basilar atelectasi s and/or infiltrate. No mediastinal shift is seen. Upper lungs remain clear without pneumothorax. Oss eous structures are intact. IMPRESSION: Overall stable findings, persistent cardiomegaly with moderate right-sided pleural effu carissa and small to tiny left pleural effusion with associated right basilar atelectasis and/or infiltr ate all redemonstrated.
[2018-10-15] MEDS: PANTOPRAZOLE 40 MG/10 ML VIAL IVP SCH ×2 (09:04→20:30)
[2018-10-15] MEDS: SODIUM BICARBONATE TAB 650 MG TAB PO SCH ×2 (09:05→17:29)
[2018-10-15] MEDS: CINACALCET 30 MG TAB PO SCH ×2 (09:05→18:04)
[2018-10-15] MEDS: METOPROLOL TARTRATE 12.5 MG TAB PO SCH ×2 (09:06→17:29)
[2018-10-15] MEDS: PIPERACILLIN-TAZOBACTAM 3.375 GM in SODIUM CHLORIDE 0.9% 100 ML IVPB SCH ×3 (10:29→23:32)
[2018-10-15 11:33] LABS: Anisocytosis Slight; Basophils # (A) 0.1 k/uL (0-0.2); Basophils % (A) 1 %; Eosinophils # (A) 0.1 k/uL (0-0.7); Eosinophils % (A) 1 %; HCT 21.1 % (34.0-46.0); Hypochromasia Marked; Lymphocytes % (A) 9 %; MCH 29.4 pg (25.0-35.0); MCHC 32.3 g/dL (31.0-37.0); MCV 91.1 fL (80.0-100.0); Monocytes # (A) 0.4 k/uL (0-1.0); Monocytes % (A) 4 %; Neutrophils # (A) 9.3 k/uL (1.3-7.7); Neutrophils % (A) 85 %; Platelet Count 169 k/uL (150-450); Poikilocytosis Moderate; RBC 2.31 m/uL (3.80-5.40); RDW 18.8 % (11.5-15.5); WBC 10.9 k/uL (3.8-10.6)
[2018-10-15 11:50] LABS: HGB 6.8 gm/dL (11.4-16.0)
--- NOTE | 2018-10-15 12:57 | P.CONS ---
History of Present Illness - Reason for Consult Consult date: 10/15/18 GI bleed Requesting physician: Christopher Almaraz - Chief Complaint Gi bleed - History of Present Illness 67-year-old female with a history of atrial fibrillation maintained on ELIQUIS, uterine carcinoma, CHF, hypertension, CAD, anemia. Patient has had a few hospitalizations over the last month in regards to anemia and suspected GI bleed. She underwent EGD 09/24/[address] Lowe with no evidence of active bleeding or pathology to exclude any anemia. Follow-up small bowel capsule endoscopy showed no evidence of active bleeding or bleeding sources. She underwent colonoscopy 10/05/[address] Olson for evaluation of symptomatic anemia hemoglobin of 5.5 with normal appearing colon from rectum to cecum with no evidence of colitis or colorectal neoplasia. Patient admitted with acute GI bleed with painless gross burgundy bowel movements 3 since midnight. Admission hemoglobin 6.2 MCV 94. Platelet 227. Hemoglobin this morning 6.8 receiving 1 unit of blood. BUN 52. Creatinine 1.0. APTT 23.1. Review of Systems Constitutional: Denies fever, chills, sweats, weight gain, or loss. HEENT: Negative for migraines, blurred vision or loss, earaches, drainage, tinnitus, oral mucosal lesions, dysphagia, or odynophagia. CARDIAC: Negative for chest pain, arrhythmias, or palpitation. RESPIRATORY: Negative for shortness of breath, hemoptysis, cough, or sputum production. GI: See HPI for pertinent findings. : Negative for hematuria, urgency, frequency, polyuria, or dysuria. GYNc: Denies possibility of . Negative vaginal discharge. MUSCULOSKELETAL: Negative for muscle aches, swelling, arthritis, and arthralgias . NEUROLOGIC: Negative for stroke or TIA. ENDOCRINE: Negative for thyroid problems. SKIN: Negative for rash or itching. PSYCHIATRIC: Negative history for depression and anxiety Past Medical History Past Medical History: Atrial Fibrillation, Coronary Artery Disease (CAD), Chest Pain / Angina, COPD, GI Bleed, Hyperlipidemia, Hypertension, Myocardial Infarction (non Q-wave), Osteoarthritis (OA), Vascular Disorder Additional Past Medical History / Comment(s): UTERINE CANCER. LT CATARACT, morbid obesity. recent GIB 10/07/18 Last Myocardial Infarction Date:: 2003 History of Any Multi-Drug Resistant Organisms: None Reported Past Surgical History: Coronary Bypass/CABG, Heart Catheterization With Stent, Hysterectomy, Orthopedic Surgery Additional Past Surgical History / Comment(s): UZMA KNEE REPLACMENTS, RT ANKLE- METAL PLATE, RT ARM SX REPAIR D/T LACERATION. RT THUMB TENDON REPAIR," LT FOOT GREAT TOE BONE REMOVED". Off-pump 3 vessel CABG 08/23/2018 Past Anesthesia/Blood Transfusion Reactions: Blood Transfusion Reaction Additional Past Anesthesia/Blood Transfusion Reaction / Comm: PAST BLOOD [id number] Date of Last Stent Placement:: 2003 Past Psychological History: No Psychological Hx Reported Additional Psychological History / Comment(s): PT LIVES ALONE IN [place] currently in rehab at [facility].NO STEPS TO CLIMB. NO PETS. 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 Smoking Status: Former smoker Past Alcohol Use History: None Reported Additional Past Alcohol Use History / Comment(s): STARTED SMOKING AT AGE 14 Past Drug Use History: None Reported - Past Family History Mother Family Medical History: No Reported History Father History Unknown: Yes Medications and Allergies Home Medications Medication Instructions Recorded Confirmed Type Apixaban [Eliquis] 5 mg PO BID@0800,1700 10/27/17 10/14/18 History Cholecalciferol (Vitamin D3) 2,000 unit PO DAILY@1700 08/15/18 10/14/18 History [Vitamin D3] Acetaminophen Tab [Tylenol] 650 mg PO Q4HR PRN tab 08/28/18 10/14/18 Rx Magnesium Hydroxide [Milk of 2,400 mg PO DAILY PRN ml 08/28/18 10/14/18 Rx Magnesia Concentrate] Aspirin [Adult Low Dose Aspirin EC] 81 mg PO DAILY@1700 09/21/18 10/14/18 History Atorvastatin [Lipitor] 80 mg PO HS@2100 09/21/18 10/14/18 History Benzocaine/Menthol Lozeng [Cepacol 1 lozenge MUCOUS MEM Q2H PRN 09/21/1810/14 History lozenge] Bisacodyl [Dulcolax] 10 mg RECTAL DAILY PRN 09/21/18 10/14/18 History Cinacalcet [Sensipar] 60 mg PO BID@0800,1700 09/21/18 10/14/18 History Furosemide [Lasix] 20 mg PO BID@0600,1400 09/21/18 10/14/18 History INSULIN ASPART (NovoLOG) [NovoLOG See Protocol SQ ACHS 09/21/18 10/14/18 History (formulary)] Ipratropium-Albuterol Nebulize 3 ml INHALATION RT-Q4H PRN 09/21/18 10/14/18 History [Duoneb 0.5 mg-3 mg/3 ml Soln] Metoprolol Tartrate [Lopressor] 12.5 mg PO BID@0800,1700 09/21/18 10/14/18 History Na Phos,M-B/Na Phos,Di-Ba [Fleet 133 ml RECTAL DAILY PRN 09/21/18 10/14/18 History Adult] Pantoprazole [Protonix] 40 mg PO DAILY@0600 09/21/18 10/14/18 History Potassium Chloride ER [K-Dur 20] 20 meq PO DAILY@1700 09/21/18 10/14/18 History Sennosides-Docusate Sodium 2 tab PO HS PRN 09/21/18 10/14/18 History [Senokot-S] Sodium Bicarbonate Tab 650 mg PO BID@0800,1700 09/21/18 10/14/18 History [place] Instant Breakfast 1 packet PO DAILY@0800 10/02/18 10/14/18 History Allergies Allergy/AdvReac Type Severity Reaction Status Date / Time No Known Allergies Allergy Verified 10/14/18 12:27 Physical Exam Vitals: Vital Signs Temp Pulse Resp BP Pulse Ox 10/15/18 11:00 71 18 115/46 100 10/15/18 10:00 73 19 135/74 93 L 10/15/18 09:00 80 18 127/51 94 L 10/15/18 08:00 98.7 F 74 14 124/56 96 10/15/18 07:00 66 40 H 125/55 100 10/15/18 06:00 74 14 112/76 100 10/15/18 05:00 80 21 112/76 99 10/15/18 04:00 98.0 F 67 22 113/61 100 10/15/18 03:00 74 26 H 102/62 98 10/15/18 02:00 83 22 114/61 97 10/15/18 01:27 97.6 F 69 16 114/61 98 10/15/18 01:00 73 27 H 94/74 98 10/15/18 00:51 100 10/15/18 00:34 75 29 H 128/71 99 10/15/18 00:30 96.3 F L 80 22 128/71 98 10/14/18 23:30 72 18 93/52 99 10/14/18 22:13 97.7 F 79 18 108/51 100 10/14/18 21:43 97.8 F 73 18 107/60 98 10/14/18 21:33 97.7 F 71 18 99/56 94 L 10/14/18 20:53 97.5 F L 79 18 118/67 100 10/14/18 19:00 90 18 100/87 100 10/14/18 18:23 97.5 F L 85 18 106/69 100 10/14/18 17:53 97.7 F 89 18 94/54 98 10/14/18 17:43 97.7 F 77 18 92/51 96 10/14/18 15:22 87 18 108/53 94 L 10/14/18 14:00 66 18 133/97 93 L Intake and Output 10/14/18 10/15/18 10/15/18 22:59 06:59 14:59 Intake Total 310 670 195 Output Total 360 255 Balance 310 310 -60 Intake: IV 50 50 Sodium Chloride 0.9% 500 50 50 ml 500 ml @ 10 mls/hr IV .Q24H JUANJOSE Rx#:[id number] Intake, IV Titration 25 Amount Piperacillin-Tazobactam 3 25 .375 gm In Sodium Chloride 0.9% 100 ml @ 25 mls/hr IVPB Q8HR JUANJOSE Rx# :[id number] Oral 120 Blood Product 310 620 As-1 Unit 0 310 [id number] Rc As-1 Unit 310 [id number] Output: Urine 360 255 Other: Voiding Method Indwelling Catheter Indwelling Catheter # Bowel Movements 1 Weight 121.835 kg General appearance: The patient is alert, oriented, in no acute distress. HET: Head is normocephalic and atraumatic. Pupils are equal and reactive. Oropharynx is clear without lesions. Neck: Supple without lymphadenopathy. Trachea midline. Heart: S1 S2. Regular rate and rhythm. Lungs: No crackles or wheezes are heard. Abdomen: Soft, nontender, nondistended with bowel sounds. No peritoneal signs. No palpable organomegaly or masses. Extremities: Ecchymosis to bilateral arms with edema. Neurological: No focal deficits. Strength and sensation are grossly intact. Results CBC & Chem 7: 10/15/18 11:00 10/15/18 05:18 Labs: Abnormal Lab Results - Last 24 Hours (Table) 10/14/18 10/14/18 10/14/18 Range/Units 13:49 13:49 13:49 WBC (3.8-10.6) k/uL RBC 2.32 L (3.80-5.40) m/uL Hgb 6.2 L* D (11.4-16.0) gm/dL Hct 21.9 L (34.0-46.0) % MCHC 28.3 L (31.0-37.0) g/dL RDW 19.1 H (11.5-15.5) % Neutrophils # 8.8 H (1.3-7.7) k/uL Chloride 112 H (98-107) mmol/L Carbon Dioxide (22-30) mmol/L BUN 52 H (7-17) mg/dL Creatinine 1.07 H (0.52-1.04) mg/dL Glucose (74-99) mg/dL POC Glucose (mg/dL) (75-99) mg/dL Calcium 8.1 L (8.4-10.2) mg/dL Total Bilirubin 1.5 H (0.2-1.3) mg/dL AST 39 H (14-36) U/L Troponin I 0.044 H* (0.000-0.034) ng/mL Total Protein 5.3 L (6.3-8.2) g/dL Albumin 2.4 L (3.5-5.0) g/dL Crossmatch 10/14/18 10/15/18 10/15/18 Range/Units 15:13 00:28 05:18 WBC 11.2 H (3.8-10.6) k/uL RBC 2.55 L (3.80-5.40) m/uL Hgb 7.5 L (11.4-16.0) gm/dL Hct 22.2 L (34.0-46.0) % MCHC (31.0-37.0) g/dL RDW 19.0 H (11.5-15.5) % Neutrophils # 9.1 H (1.3-7.7) k/uL Chloride (98-107) mmol/L Carbon Dioxide (22-30) mmol/L BUN (7-17) mg/dL Creatinine (0.52-1.04) mg/dL Glucose (74-99) mg/dL POC Glucose (mg/dL) 117 H (75-99) mg/dL Calcium (8.4-10.2) mg/dL Total Bilirubin (0.2-1.3) mg/dL AST (14-36) U/L Troponin I (0.000-0.034) ng/mL Total Protein (6.3-8.2) g/dL Albumin (3.5-5.0) g/dL Crossmatch See Detail 10/15/18 10/15/18 Range/Units 05:18 11:00 WBC 10.9 H (3.8-10.6) k/uL RBC 2.31 L (3.80-5.40) m/uL Hgb 6.8 L* (11.4-16.0) gm/dL Hct 21.1 L (34.0-46.0) % MCHC (31.0-37.0) g/dL RDW 18.8 H (11.5-15.5) % Neutrophils # 9.3 H (1.3-7.7) k/uL Chloride 113 H (98-107) mmol/L Carbon Dioxide 31 H (22-30) mmol/L BUN 53 H (7-17) mg/dL Creatinine (0.52-1.04) mg/dL Glucose 100 H (74-99) mg/dL POC Glucose (mg/dL) (75-99) mg/dL Calcium 8.1 L (8.4-10.2) mg/dL Total Bilirubin (0.2-1.3) mg/dL AST (14-36) U/L Troponin I (0.000-0.034) ng/mL Total Protein (6.3-8.2) g/dL Albumin (3.5-5.0) g/dL Crossmatch Assessment and Plan (1) GI bleed Narrative/Plan: 67-year-old female admitted with acute painless rectal bleeding acute blood loss anemia passing burgundy colored bowel movements with recent EGD colonoscopy small bowel endoscopy within the past 30 days with no evidence of active bleeding or bleeding sources. Possible small bowel pathology exacerbated by anticoagulation. Current Visit: Yes Status: Acute Code(s): K92.2 - GASTROINTESTINAL HEMORRHA GE, UNSPECIFIED SNOMED Code(s): 97123225 (2) Blood loss anemia Current Visit: No Status: Acute Code(s): D50.0 - IRON DEFICIENCY ANEMIA SECONDARY TO BLOOD LOSS (CHRONIC) SNOMED Code(s): 013721582 (3) Afib Current Visit: No Status: Acute Code(s): I48.91 - UNSPECIFIED ATRIAL FIBRILLATION SNOMED Code(s): 63396178 Plan: 1. Nothing by mouth except meds. EGD surveillance this afternoon followed by possible repeat small bowel capsule endoscopy. CBC every 6 hours. Protonix 40 mg twice daily. Blood transfusion as indicated. The economic specialist has discussed the risks, benefits and alternative therapies for the above-mentioned procedure and for both sedation/analgesia as well as necessary blood product administration, if indicated, as they pertain to this patient. The patient has indicated understanding and acceptance of the risks and procedures discussed. Thank you for this kind referral and the opportunity to participate in the care of your patient. This consultation was discussed with Dr. Lowe. The impression and plan of care have been directed as dictated.
--- NOTE | 2018-10-15 13:12 | P.CNPUL ---
History of Present Illness Consult date: 10/15/18 Chief complaint: GI bleeding History of present illness: 77-year-old morbidly obese female patient with known history of coronary artery disease with previous bypass surgery also known history of chronic atrial fibrillation maintained on Eliquis on outpatient basis. The patient is known to have hypertension, chronic anemia and history of uterine cancer. The patient is known to me during her previous hospitalization as I took care of this patient's postoperative care following her cardiac surgery. Note that this is another hospitalization for this patient for the same ongoing GI bleed. The patient has a few hospitalizations for anemia and suspected GI bleed. The patient underwent an EGD on 09/24/2018 and there was no evidence of any acute bleeding or pathology. The patient also underwent a small bowel capsule endoscopy that show ed no evidence of any acute or active bleeding. Subsequently the patient underwent a colonoscopy that was done on 10/05/2018 and this was done for symptomatically anemia of hemoglobin of 5.5 and it showed no evidence of any acute bleed and there was a normal-appearing colon and rectum and cecum and there was no evidence of colitis or colorectal neoplasia. The patient was restarted back on anticoagulation the patient was discharged home to be readmitted yesterday with painless gross burgundy stool and bowel movements were no other of 3 times since midnight. Hemoglobin dropped to 6.2 and MCV of 94. Platelet count was at 227. The patient received a total of 1 unit of packed RBC for hemoglobin of 6.8. She is hemodynamically stable. Chest x-ray showing a moderate-sized right-sided pleural effusion that was present on previous chest x-ray. The patient also has a left lower extremity open wound and previous cultures have shown Citrobacter and pseudomonas aeruginosa. Dialysis around 4 x 1 cm in size in the bases covered with purulent material. Review of Systems Constitutional: Reports chronic pain, Reports daytime sleepiness, Reports fatigue, Reports poor appetite, Reports weakness, Reports weight gain Eyes: denies blurred vision, denies bulging eye, denies decreased vision Ears: deny: decreased hearing, ear discharge, earache, tinnitus Ears, nose, mouth and throat: Denies headache, Denies sore throat Cardiovascular: Reports decreased exercise tolerance, Reports dyspnea on exertion, Reports irregular heart beat, Reports shortness of breath Respiratory: Reports dyspnea, Reports home oxygen, Reports sleep apnea, Reports snoring Gastrointestinal: Reports as per HPI, Reports BRBPR Genitourinary: Reports as per HPI Menstruation: Reports as per HPI Musculoskeletal: Reports as per HPI, Reports gait dysfunction, Reports limitation of motion, Reports muscle weakness Musculoskeletal: bilateral: ankle swelling, absent: ankle pain, ankle stiffness Integumentary: Reports as per HPI, Reports wounds Neurological: Reports as per HPI, Reports weakness Psychiatric: Reports as per HPI Endocrine: Reports as per HPI, Reports fatigue Hematologic/Lymphatic: Reports as per HPI Past Medical History Past Medical History: Atrial Fibrillation, Coronary Artery Disease (CAD), Chest Pain / Angina, COPD, GI Bleed, Hyperlipidemia, Hypertension, Myocardial Infarction (non Q-wave), Osteoarthritis (OA), Vascular Disorder Additional Past Medical History / Comment(s): UTERINE CANCER. LT CATARACT, morbid obesity. recent GIB 10/07/18 Last Myocardial Infarction Date:: 2003 History of Any Multi-Drug Resistant Organisms: None Reported Past Surgical History: Coronary Bypass/CABG, Heart Catheterization With Stent, Hysterectomy, Orthopedic Surgery Additional Past Surgical History / Comment(s): UZMA KNEE REPLACMENTS, RT ANKLE- METAL PLATE, RT ARM SX REPAIR D/T LACERATION. RT THUMB TENDON REPAIR," LT FOOT GREAT TOE BONE REMOVED". Off-pump 3 vessel CABG 08/23/2018 Past Anesthesia/Blood Transfusion Reactions: Blood Transfusion Reaction Additional Past Anesthesia/Blood Transfusion Reaction / Comment(s): PAST BLOOD [id number] Date of Last Stent Placement:: 2003 Past Psychological History: No Psychological Hx Reported Additional Psychological History / Comment(s): PT LIVES ALONE IN [place] currently in rehab at [facility].NO STEPS TO CLIMB. NO PETS. HAS VISITNG NURSE, MEALS ON EELS.HAS A W/C, WALKER, CANE. Smoking Status: Former smoker Past Alcohol Use History: None Reported Additional Past Alcohol Use History / Comment(s): STARTED SMOKING AT AGE 14 Past Drug Use History: None Reported - Past Family History Mother Family Medical History: No Reported History Father History Unknown: Yes Medications and Allergies Home Medications Medication Instructions Recorded Confirmed Type Apixaban [Eliquis] 5 mg PO BID@0800,1700 10/27/17 10/14/18 History Cholecalciferol (Vitamin D3) 2,000 unit PO DAILY@1700 08/15/18 10/14/18 History [Vitamin D3] Acetaminophen Tab [Tylenol] 650 mg PO Q4HR PRN tab 08/28/18 10/14/18 Rx Magnesium Hydroxide [Milk of 2,400 mg PO DAILY PRN ml 08/28/18 10/14/18 Rx Magnesia Concentrate] Aspirin [Adult Low Dose Aspirin EC] 81 mg PO DAILY@1700 09/21/18 10/14/18 History Atorvastatin [Lipitor] 80 mg PO HS@2100 09/21/18 10/14/18 History Benzocaine/Menthol Lozeng [Cepacol 1 lozenge MUCOUS MEM Q2H PRN 09/21/18 10/14/18 History lozenge] Bisacodyl [Dulcolax] 10 mg RECTAL DAILY PRN 09/21/18 10/14/18 History Cinacalcet [Sensipar] 60 mg PO BID@0800,1700 09/21/18 10/14/18 History Furosemide [Lasix] 20 mg PO BID@0600,1400 09/21/18 10/14/18 History INSULIN ASPART (NovoLOG) [NovoLOG See Protocol SQ ACHS 09/21/18 10/14/18 History (formulary)] Ipratropium-Albuterol Nebulize 3 ml INHALATION RT-Q4H PRN 09/21/18 10/14/18 History [Duoneb 0.5 mg-3 mg/3 ml Soln] Metoprolol Tartrate [Lopressor] 12.5 mg PO BID@0800,1700 09/21/18 10/14/18 History Na Phos,M-B/Na Phos,Di-Ba [Fleet 133 ml RECTAL DAILY PRN 09/21/18 10/14/18 History Adult] Pantoprazole [Protonix] 40 mg PO DAILY@0600 09/21/18 10/14/18 History Potassium Chloride ER [K-Dur 20] 20 meq PO DAILY@1700 09/21/18 10/14/18 History Sennosides-Docusate Sodium 2 tab PO HS PRN 09/21/18 10/14/18 History [Senokot-S] Sodium Bicarbonate Tab 650 mg PO BID@0800,1700 09/21/18 10/14/18 History [place] Instant Breakfast 1 packet PO DAILY@0800 10/02/18 10/14/18 History Allergies Allergy/AdvReac Type Severity Reaction Status Date / Time No Known Allergies Allergy Verified 10/14/18 12:27 Physical Exam Vitals: Vital Signs Temp Pulse Resp BP Pulse Ox 10/15/18 12:00 97.1 F L 75 18 125/50 100 10/15/18 11:00 71 18 115/46 100 10/15/18 10:00 73 19 135/74 93 L 10/15/18 09:00 80 18 127/51 94 L 10/15/18 08:00 98.7 F 74 14 124/56 96 10/15/18 07:00 66 40 H 125/55 100 10/15/18 06:00 74 14 112/76 100 10/15/18 05:00 80 21 112/76 99 10/15/18 04:00 98.0 F 67 22 113/61 100 10/15/18 03:00 74 26 H 102/62 98 10/15/18 02:00 83 22 114/61 97 10/15/18 01:27 97.6 F 69 16 114/61 98 10/15/18 01:00 73 27 H 94/74 98 10/15/18 00:51 100 10/15/18 00:34 75 29 H 128/71 99 10/15/18 00:30 96.3 F L 80 22 128/71 98 10/14/18 23:30 72 18 93/52 99 10/14/18 22:13 97.7 F 79 18 108/51 100 10/14/18 21:43 97.8 F 73 18 107/60 98 10/14/18 21:33 97.7 F 71 18 99/56 94 L 10/14/18 20:53 97.5 F L 79 18 118/67 100 10/14/18 19:00 90 18 100/87 100 10/14/18 18:23 97.5 F L 85 18 106/69 100 10/14/18 17:53 97.7 F 89 18 94/54 98 10/14/18 17:43 97.7 F 77 18 92/51 96 10/14/18 15:22 87 18 108/53 94 L 10/14/18 14:00 66 18 133/97 93 L Intake and Output 10/14/18 10/15/18 10/15/18 22:59 06:59 14:59 Intake Total 310 670 230 Output Total 360 302 Balance 310 310 -72 Intake: IV 50 60 Sodium Chloride 0.9% 500 50 60 ml 500 ml @ 10 mls/hr IV .Q24H JUANJOSE Rx#:[id number] Intake, IV Titration 50 Amount Piperacillin-Tazobactam 3 50 .375 gm In Sodium Chloride 0.9% 100 ml @ 25 mls/hr IVPB Q8HR JUANJOSE Rx# :[id number] Oral 120 Blood Product 310 620 Rc As-1 Unit 0 310 [id number] Rc As-1 Unit 310 [id number] Output: Urine 360 302 Other: Voiding Method Indwelling Catheter Indwelling Catheter # Bowel Movements 1 1 Weight 121.835 kg Obese, comfortable likely distress Head exam was generally normal. There was no scleral icterus or corneal arcus. Mucous membranes were moist. Neck was supple and without jugular venous distension, thyromegaly, or carotid bruits. Carotids were easily palpable bilaterally. There was no adenopathy. Mallampati class IV and the patient has significant crowding of the posterior oropharynx Lungs sounds are diminished specially in the right lung base along with dullness to percussion. Sternum stable clean and intact. Patient is a well-healed scar for thoracotomy over the anterior chest. Heart sounds are irregular consistent with atrial fibrillation. Rate is controlled for now. No significant murmurs appreciated and the patient has a sternotomy scar over the anterior chest and the chest tube sites have been healing nicely. Abdominal exam revealed normal bowel sounds. The abdomen was soft, non-tender, and without masses, organomegaly, or appreciable enlargement of the abdominal aorta. Extremities revealed +1 pitting edema. The patient has extensive swelling and bruising of the right upper extremity from previous blood draws. The patient is an open wound measuring 1 x 4 cm with a purulent base in the left lower extremity along the medial aspect of the left leg. Pulses in lower extremities are diminished for now. Neurologically the patient is motor weakness. Gait cannot be assessed. No focal neurological deficit. Cranial nerves are intact. Pupils are equal and reactive to light. Skin the patient has areas of bruising in addition to a stage II wound in the left lower extremity with a based being covered with purulent material. Results - Laboratory Findings CBC and BMP: 10/15/18 11:00 10/15/18 05:18 Abnormal lab findings: Abnormal Labs 10/14/18 10/14/18 10/14/18 13:49 13:49 13:49 WBC RBC 2.32 L Hgb 6.2 L* D Hct 21.9 L MCHC 28.3 L RDW 19.1 H Neutrophils # 8.8 H Chloride 112 H Carbon Dioxide BUN 52 H Creatinine 1.07 H Glucose POC Glucose (mg/dL) Calcium 8.1 L Total Bilirubin 1.5 H AST 39 H Troponin I 0.044 H* Total Protein 5.3 L Albumin 2.4 L Crossmatch 10/14/18 10/15/18 10/15/18 15:13 00:28 05:18 WBC 11.2 H RBC 2.55 L Hgb 7.5 L Hct 22.2 L MCHC RDW 19.0 H Neutrophils # 9.1 H Chloride Carbon Dioxide BUN Creatinine Glucose POC Glucose (mg/dL) 117 H Calcium Total Bilirubin AST Troponin I Total Protein Albumin Crossmatch See Detail 10/15/18 10/15/18 05:18 11:00 WBC 10.9 H RBC 2.31 L Hgb 6.8 L* Hct 21.1 L MCHC RDW 18.8 H Neutrophils # 9.3 H Chloride 113 H Carbon Dioxide 31 H BUN 53 H Creatinine Glucose 100 H POC Glucose (mg/dL) Calcium 8.1 L Total Bilirubin AST Troponin I Total Protein Albumin Crossmatch - Diagnostic Findings Chest x-ray: image reviewed Assessment and Plan Plan: 1 acute and recurrent GI bleed, likely of an upper GI source. Recent EGD and small bowel endoscopy done showed no evidence of any bleeding and the colonoscopy was also negative. Hemoglobin dropped and the patient received 2 units of packed RBC. Suspect an upper GI source of bleeding in this patient special with her long-term and to coagulation with Eliquis. 2 anemia, secondary to blood loss and the patient got transferred units of packed RBC 3 coronary artery disease with recent bypass surgery, the patient underwent an off-pump three-vessel bypass surgery on 08/23/2018 4 right-sided pleural effusion, likely post surgical in nature that needs to be further investigated and today 90 the size of the pleural effusions, worse compared to her last chest x-ray 5 atrial fibrillation the rate is controlled and the patient is on long-term and to coagulation with Eliquis 6 is history of coronary disease and previous MS of a non-STEMI type 7 hypertension 8 hyperlipidemia 9 uterine cancer 10 medical debility seconds above-mentioned comorbidities. The patient also has bilateral knee replacement and ankle surgery on the right and she has difficulty with morbidity and gait Plan Reconsult GI. Watch for any further signs of GI bleeding. Monitor hemoglobin and transfuse accordingly specially the hemoglobin drops below 7. GI consultation. The patient will be taken off Eliquis for now. Wound cultures. Continue IV Zosyn. Aquacel silver to the left lower extremity wounds. Thoracentesis the next 24-48 hours regarding the right-sided pleural effusion. Continue to follow.
[2018-10-15] MEDS ORDERED: IV FLUID CONTINUATION 450 ML IV ONE (15:53)
[2018-10-15] MEDS ORDERED: MAGNESIUM CITRATE 296 ML BOTTLE PO ONE (16:06)
--- NOTE | 2018-10-15 16:14 | P.PCN ---
Date of Procedure: 10/15/18 Description of Procedure: BRIEF HISTORY: 67-year-old female with a history of atrial fibrillation maintained on ELIQUIS, uterine carcinoma, CHF, hypertension, CAD, anemia. Patient has had a few hospitalizations over the last month in regards to anemia and suspected GI bleed. She underwent EGD 09/24/[address] Lowe with no evidence of active bleeding or pathology to exclude any anemia. Follow-up small bowel capsule endoscopy showed no evidence of active bleeding or bleeding sources. She underwent colonoscopy 10/05/[address] Olson for evaluation of symptomatic anemia hemoglobin of 5.5 with normal appearing colon from rectum to cecum with no evidence of colitis or colorectal neoplasia. Patient admitted with acute GI bleed with painless gross burgundy bowel movements 3 since midnight. Admission hemoglobin 6.2 MCV 94. Platelet 227. Hemoglobin this morning 6.8 receiving 1 unit of blood. BUN 52. Creatinine 1.0. APTT 23.1. PROCEDURE PERFORMED: Esophagogastroduodenoscopy. PREOPERATIVE DIAGNOSIS: GI bleed, anemia, blood per rectum. ESTIMATED BLOOD LOSS: Minimal. IV sedation per anesthesia. PROCEDURE: After informed consent was obtained, the patient was brought into the endoscopy unit. IV sedation was administered by Anesthesia under continuous monitoring. Initially the Olympus GIF-190 video endoscope was inserted into the mouth. Esophagus intubated without any difficulty. It was gradually advanced into the stomach and duodenum and carefully examined. The bulb and the second, third and fourth part of the duodenum appeared normal. The scope at this time was withdrawn to the stomach, adequately insufflated with air, and upon careful exam ination, mucosa of the antrum, body, cardia and the fundus appeared normal. The scope was then withdrawn into the esophagus. The GE junction was located at 41 cm from the incisors. The esophagus appeared normal. There were no erosions or ulcerations seen and the patient tolerated the procedure well. IMPRESSION: 1. No active bleeding, or old blood or source of anemia noted. RECOMMENDATIONS: The findings of this examination were discussed with the patient. Okay for liquids. Magnesium citrate bowel prep ordered for tonight. Plan for video capsule endoscopy tomorrow. Continue to monitor hemoglobin and hematocrit and transfuse as needed..
[2018-10-15] MEDS: POTASSIUM CHLORIDE ER 20 MEQ TAB.ER PO SCH (17:29)
[2018-10-15 19:17] LABS: Anisocytosis Slight; Basophils % (A) 0 %; Eosinophils # (A) 0.1 k/uL (0-0.7); Eosinophils % (A) 1 %; HCT 22.2 % (34.0-46.0); Hypochromasia Moderate; Lymphocytes # (A) 0.9 k/uL (1.0-4.8); Lymphocytes % (A) 9 %; MCH 28.4 pg (25.0-35.0); MCHC 31.6 g/dL (31.0-37.0); MCV 90.1 fL (80.0-100.0); Mean Platelet Volume 9.4; Monocytes # (A) 0.4 k/uL (0-1.0); Monocytes % (A) 4 %; Neutrophils # (A) 8.4 k/uL (1.3-7.7); Neutrophils % (A) 84 %; Platelet Count 156 k/uL (150-450); Poikilocytosis Moderate; RBC 2.46 m/uL (3.80-5.40); RDW 18.1 % (11.5-15.5)
[2018-10-15] MEDS: ATORVASTATIN 80 MG TAB PO SCH (20:30)
[2018-10-15 23:44] LABS: Anisocytosis Slight; Basophils % (A) 0 %; Eosinophils # (A) 0.2 k/uL (0-0.7); Eosinophils % (A) 1 %; HCT 22.8 % (34.0-46.0); HGB 7.3 gm/dL (11.4-16.0); Hypochromasia Moderate; Lymphocytes % (A) 10 %; MCH 29.1 pg (25.0-35.0); MCHC 32.2 g/dL (31.0-37.0); MCV 90.3 fL (80.0-100.0); Mean Platelet Volume 9.5; Monocytes # (A) 0.4 k/uL (0-1.0); Monocytes % (A) 4 %; Neutrophils # (A) 9.1 k/uL (1.3-7.7); Neutrophils % (A) 84 %; Platelet Count 160 k/uL (150-450); Poikilocytosis Moderate; RBC 2.52 m/uL (3.80-5.40); RDW 18.7 % (11.5-15.5); WBC 10.8 k/uL (3.8-10.6)
--- NOTE | 2018-10-16 00:07 | P.HPIM ---
History of Present Illness H&P Date: 10/15/18 Chief Complaint: GI bleed history of presenting complaint: this is a pleasant 67-year-old patient followed by visiting physician Dr. Richard. Chronic stable medical conditions include persistent atrial fibrillation, congestive heart failure hypertension carotid artery disease osteoarthritis. Patient underwent coronary artery bypass on August 23 and three-vessel bypass with ligation of the left atrial appendage. Patient was discharged August 28. Patient went to the [facility]. Patient presented to admissions with the lower GI bleeding. Requiring blood transfusions.patient has recent admission on October 02 and had again GI bleeding. Was then seen by two-month last admission. Patient just required a total of 4 units of blood..she recently has had a EGD and a small capsule study. On last admission have a colonoscopic. Patient yet again presents with lower GI bleed. Patient other tired. Weak and rundown. No abdominal pain. Review of systems: GEN.: [tired] EYES: [None] HEENT: [None] NECK: [None] RESPIRATORY: Baseline shortness of breath] CARDIOVASCULAR: [None] GASTROINTESTINAL: [as above] GENITOURINARY: [None] MUSCULOSKELETAL: [pain in the joints] LYMPHATICS: [None] HEMATOLOGICAL: [None] PSYCHIATRY: [None] NEUROLOGICAL: [None] Dermatological lower extremity wounds improving quite well healed except for one past medical history: Endocrine GI bleed source unclear, coronary artery disease, CHF EF 35-40%, hypertensive heart disease, paroxysmal atrial fibrillation, hypertension, primary osteoarthritis, complete occlusion of the right internal carotid artery and 80% occlusion of the left intertrochanteric artery, COPD, peripheral artery disease, chronic lower extremity with assistance insufficiency, hypercalcemia in a patient with known hyperparathyroidism, lower extremity wounds recently improved, social history: None spell self currently at rehab [facility]. Using of the chest/walk. Patient smoked for 50 years stopped in March 2018. No alcohol. Family history reviewed Noncontributory to presentation Physical examination: VITAL SIGNS: [97.8, 77, 18, 90/54, 98% on presentationd] GENERAL: [BMI 52.5, sitting up tired appearing]. EYES: [Pupils equal. Conjunctivapain]l. HEENT: [External appearance of nose and ears normal, oral cavity grossly normal]. NECK: [JVD unable to assess, short thick neck]. HEART: [heart sounds muffled, edema present]. LUNGS:[ Respiratory rate increased, decreased breath sounds]. ABDOMEN: [Soft, nontender, liver spleen not palpable, no masses palpable]. LYMPHATICS: [No lymph nodes palpable in the axilla and neck]. PSYCH: [tired lethargic but arousable able to answer questionsl. NEUROLOGICAL: [Cranial nerves grossly intact; no facial asymmetry, power and sensation grossly intact Dermatological: Right upper extremity large area of bruising Investigations: hemoglobin 6.2, it was 8.1 on October 07, potassium 4.7, BUN 52, creatinine 1.07, BUN and creatinine was 41/1.2 for a week ago Assessment: -Acute severe GI bleed. She recently is had a EGD, capsule study and colonoscopy. Probably patient needs a repeat capsule study -Acute severe blood loss anemia -Coronary artery disease with history of bypass on August 20 -Chronic congestive heart failure from systolic dysfunction EF 34-40% -Hypertensive heart disease -Paroxysmal atrial fibrillation in sinus rhythm -Essential hypertension -Complete occlusion of the right intertrochanteric artery and 80% occlusion of left internal carotid artery -COPD -Peripheral arterial disease -Chronic venous insufficiency lower extremity -Hypercalcemia in a patient with known hyperparathyroidism -Lower extremity was recently healed except for one -Chronic kidney disease probably from nephrosclerosis]. plan: GI was consulted. She was admitted to the ICU. Follow electrolytes and hemodynamics closely. Home medications resumed. Of course antiplatelet is on blood thinners were discontinued. Patient probably is going for endoscopy later this afternoon. Also critical care was consulted. Prognosis guarded. Past Medical History Past Medical History: Atrial Fibrillation, Coronary Artery Disease (CAD), Chest Pain / Angina, COPD, GI Bleed, Hyperlipidemia, Hypertension, Myocardial Infarction (non Q-wave), Osteoarthritis (OA), Vascular Disorder Additional Past Medical History / Comment(s): UTERINE CANCER. LT CATARACT, morbid obesity. recent GIB 10/07/18 Last Myocardial Infarction Date:: 2003 History of Any Multi-Drug Resistant Organisms: None Reported Past Surgical History: Coronary Bypass/CABG, Heart Catheterization With Stent, Hysterectomy, Orthopedic Surgery Additional Past Surgical History / Comment(s): UZMA KNEE REPLACMENTS, RT ANKLE- METAL PLATE, RT ARM SX REPAIR D/T LACERATION. RT THUMB TENDON REPAIR," LT FOOT GREAT TOE BONE REMOVED". Off-pump 3 vessel CABG 08/23/2018 Past Anesthesia/Blood Transfusion Reactions: Blood Transfusion Reaction Additional Past Anesthesia/Blood Transfusion Reaction / Comment(s): PAST BLOOD [id number] Date of Last Stent Placement:: 2003 Past Psychological History: No Psychological Hx Reported Additional Psychological History / Comment(s): PT LIVES ALONE IN [place] currently in rehab at [facility].NO STEPS TO CLIMB. NO PETS. 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 Smoking Status: Former smoker Past Alcohol Use History: None Reported Additional Past Alcohol Use History / Comment(s): STARTED SMOKING AT AGE 14 Past Drug Use History: None Reported - Past Family History Mother Family Medical History: No Reported History Father History Unknown: Yes Medications and Allergies Home Medications Medication Instructions Recorded Confirmed Type Apixaban [Eliquis] 5 mg PO BID@0800,1700 10/27/17 10/14/18 History Cholecalciferol (Vitamin D3) 2,000 unit PO DAILY@1700 08/15/18 10/14/18 History [Vitamin D3] Acetaminophen Tab [Tylenol] 650 mg PO Q4HR PRN tab 08/28/18 10/14/18 Rx Magnesium Hydroxide [Milk of 2,400 mg PO DAILY PRN ml 08/28/18 10/14/18 Rx Magnesia Concentrate] Aspirin [Adult Low Dose Aspirin EC] 81 mg PO DAILY@1700 09/21/18 10/14/18 History Atorvastatin [Lipitor] 80 mg PO HS@2100 09/21/18 10/14/18 History Benzocaine/Menthol Lozeng [Cepacol 1 lozenge MUCOUS MEM Q2H PRN 09/21/18 10/14/18 History lozenge] Bisacodyl [Dulcolax] 10 mg RECTAL DAILY PRN 09/21/18 10/14/18 History Cinacalcet [Sensipar] 60 mg PO BID@0800,1700 09/21/18 10/14/18 History Furosemide [Lasix] 20 mg PO BID@0600,1400 09/21/18 10/14/18 History INSULIN ASPART (NovoLOG) [NovoLOG See Protocol SQ ACHS 09/21/18 10/14/18 History (formulary)] Ipratropium-Albuterol Nebulize 3 ml INHALATION RT-Q4H PRN 09/21/18 10/14/18 History [Duoneb 0.5 mg-3 mg/3 ml Soln] Metoprolol Tartrate [Lopressor] 12.5 mg PO BID@0800,1700 09/21/18 10/14/18 History Na Phos,M-B/Na Phos,Di-Ba [Fleet 133 ml RECTAL DAILY PRN 09/21/18 10/14/18 History Adult] Pantoprazole [Protonix] 40 mg PO DAILY@0600 09/21/18 10/14/18 History Potassium Chloride ER [K-Dur 20] 20 meq PO DAILY@1700 09/21/18 10/14/18 History Sennosides-Docusate Sodium 2 tab PO HS PRN 09/21/18 10/14/18 History [Senokot-S] Sodium Bicarbonate Tab 650 mg PO BID@0800,1700 09/21/18 10/14/18 History Adair Instant Breakfast 1 packet PO DAILY@0800 10/02/18 10/14/18 History Allergies Allergy/AdvReac Type Severity Reaction Status Date / Time No Known Allergies Allergy Verified 10/14/18 12:27 Physical Exam Vitals: Vital Signs Temp Pulse Resp BP Pulse Ox 10/15/18 13:00 68 16 110/62 100 10/15/18 12:00 97.1 F L 75 18 125/50 100 10/15/18 11:00 71 18 115/46 100 10/15/18 10:00 73 19 135/74 93 L 10/15/18 09:00 80 18 127/51 94 L 10/15/18 08:00 98.7 F 74 14 124/56 96 10/15/18 07:00 66 40 H 125/55 100 10/15/18 06:00 74 14 112/76 100 10/15/18 05:00 80 21 112/76 99 10/15/18 04:00 98.0 F 67 22 113/61 100 10/15/18 03:00 74 26 H 102/62 98 10/15/18 02:00 83 22 114/61 97 10/15/18 01:27 97.6 F 69 16 114/61 98 10/15/18 01:00 73 27 H 94/74 98 10/15/18 00:51 100 10/15/18 00:34 75 29 H 128/71 99 10/15/18 00:30 96.3 F L 80 22 128/71 98 10/14/18 23:30 72 18 93/52 99 10/14/18 22:13 97.7 F 79 18 108/51 100 10/14/18 21:43 97.8 F 73 18 107/60 98 10/14/18 21:33 97.7 F 71 18 99/56 94 L 10/14/18 20:53 97.5 F L 79 18 118/67 100 10/14/18 19:00 90 18 100/87 100 10/14/18 18:23 97.5 F L 85 18 106/69 100 10/14/18 17:53 97.7 F 89 18 94/54 98 10/14/18 17:43 97.7 F 77 18 92/51 96 10/14/18 15:22 87 18 108/53 94 L 10/14/18 14:00 66 18 133/97 93 L Intake and Output 10/14/18 10/15/18 10/15/18 22:59 06:59 14:59 Intake Total 310 670 265 Output Total 360 352 Balance 310 310 -87 Intake: IV 50 70 Sodium Chloride 0.9% 500 50 70 ml 500 ml @ 10 mls/hr IV .Q24H [facility] Rx#:[id number] Intake, IV Titration 75 Amount Piperacillin-Tazobactam 3 75 .375 gm In Sodium Chloride 0.9% 100 ml @ 25 mls/hr IVPB Q8HR [facility] Rx# :[id number] Oral 120 Blood Product 310 620 Rc As-1 Unit 0 310 [id number] Rc As-1 Unit 310 [id number] Output: Urine 360 352 Other: Voiding Method Indwelling Catheter Indwelling Catheter # Bowel Movements 1 1 Weight 121.835 kg Results CBC & Chem 7: 10/15/18 23:30 10/15/18 05:18 Labs: Abnormal Lab Results - Last 24 Hours (Table) 10/14/18 10/14/18 10/14/18 Range/Units 13:49 13:49 13:49 WBC (3.8-10.6) k/uL RBC 2.32 L (3.80-5.40) m/uL Hgb 6.2 L* D (11.4-16.0) gm/dL Hct 21.9 L (34.0-46.0) % MCHC 28.3 L (31.0-37.0) g/dL RDW 19.1 H (11.5-15.5) % Neutrophils # 8.8 H (1.3-7.7) k/uL Chloride 112 H (98-107) mmol/L Carbon Dioxide (22-30) mmol/L BUN 52 H (7-17) mg/dL Creatinine 1.07 H (0.52-1.04) mg/dL Glucose (74-99) mg/dL POC Glucose (mg/dL) (75-99) mg/dL Calcium 8.1 L (8.4-10.2) mg/dL Total Bilirubin 1.5 H (0.2-1.3) mg/dL AST 39 H (14-36) U/L Troponin I 0.044 H* (0.000-0.034) ng/mL Total Protein 5.3 L (6.3-8.2) g/dL Albumin 2.4 L (3.5-5.0) g/dL Crossmatch 10/14/18 10/15/18 10/15/18 Range/Units 15:13 00:28 05:18 WBC 11.2 H (3.8-10.6) k/uL RBC 2.55 L (3.80-5.40) m/uL Hgb 7.5 L (11.4-16.0) gm/dL Hct 22.2 L (34.0-46.0) % MCHC (31.0-37.0) g/dL RDW 19.0 H (11.5-15.5) % Neutrophils # 9.1 H (1.3-7.7) k/uL Chloride (98-107) mmol/L Carbon Dioxide (22-30) mmol/L BUN (7-17) mg/dL Creatinine (0.52-1.04) mg/dL Glucose (74-99) mg/dL POC Glucose (mg/dL) 117 H (75-99) mg/dL Calcium (8.4-10.2) mg/dL Total Bilirubin (0.2-1.3) mg/dL AST (14-36) U/L Troponin I (0.000-0.034) ng/mL Total Protein (6.3-8.2) g/dL Albumin (3.5-5.0) g/dL Crossmatch See Detail 10/15/18 10/15/18 Range/Units 05:18 11:00 WBC 10.9 H (3.8-10.6) k/uL RBC 2.31 L (3.80-5.40) m/uL Hgb 6.8 L* (11.4-16.0) gm/dL Hct 21.1 L (34.0-46.0) % MCHC (31.0-37.0) g/dL RDW 18.8 H (11.5-15.5) % Neutrophils # 9.3 H (1.3-7.7) k/uL Chloride 113 H (98-107) mmol/L Carbon Dioxide 31 H (22-30) mmol/L BUN 53 H (7-17) mg/dL Creatinine (0.52-1.04) mg/dL Glucose 100 H (74-99) mg/dL POC Glucose (mg/dL) (75-99) mg/dL Calcium 8.1 L (8.4-10.2) mg/dL Total Bilirubin (0.2-1.3) mg/dL AST (14-36) U/L Troponin I (0.000-0.034) ng/mL Total Protein (6.3-8.2) g/dL Albumin (3.5-5.0) g/dL Crossmatch Thrombosis Risk Factor Assmnt - Choose All That Apply Any of the Below Risk Factors Present?: Yes Each Factor Represents 1 point: Abnormal pulmonary function (COPD), Obesity (BMI >25), Swollen legs (current) Other Risk Factors: Yes Each Risk Factor Represents 2 Points: Age 61-74 years Other congenital or acquired thrombophilia - If yes, enter type in comment: No Thrombosis Risk Factor Assessment Total Risk Factor Score: 5 Thrombosis Risk Factor Assessment Level: High Risk
[2018-10-16 05:03] LABS: Anisocytosis Slight; Basophils % (A) 0 %; Eosinophils # (A) 0.1 k/uL (0-0.7); Eosinophils % (A) 1 %; HCT 22.7 % (34.0-46.0); HGB 7.3 gm/dL (11.4-16.0); Hypochromasia Marked; Lymphocytes % (A) 9 %; MCH 29.1 pg (25.0-35.0); MCHC 32.1 g/dL (31.0-37.0); MCV 90.7 fL (80.0-100.0); Mean Platelet Volume 9.6; Monocytes # (A) 0.4 k/uL (0-1.0); Monocytes % (A) 3 %; Neutrophils # (A) 9.8 k/uL (1.3-7.7); Neutrophils % (A) 86 %; Platelet Count 161 k/uL (150-450); Poikilocytosis Moderate; RDW 18.7 % (11.5-15.5); WBC 11.4 k/uL (3.8-10.6)
[2018-10-16 05:11] LABS: INR 1.2 (<1.2); Prothrombin Time 12.4 sec (9.0-12.0)
[2018-10-16 05:14] LABS: Calcium 7.9 mg/dL (8.4-10.2); Phosphorus 3.1 mg/dL (2.5-4.5); Potassium 3.7 mmol/L (3.5-5.1)
[2018-10-16] MEDS ORDERED: Potassium Replacement Protocol 1 EACH MISC MISCELLANE PRN (06:17)
[2018-10-16] MEDS: FUROSEMIDE 20 MG TAB PO SCH ×2 (06:26→15:04)
[2018-10-16] MEDS ORDERED: POTASSIUM CHLORIDE ER 20 MEQ TAB.ER PO SCH (07:00)
[2018-10-16] MEDS: PIPERACILLIN-TAZOBACTAM 3.375 GM in SODIUM CHLORIDE 0.9% 100 ML IVPB SCH ×3 (07:43→23:56)
[2018-10-16] MEDS: METOPROLOL TARTRATE 12.5 MG TAB PO SCH ×2 (07:43→17:37)
[2018-10-16] MEDS: CINACALCET 30 MG TAB PO SCH ×2 (07:43→17:36)
[2018-10-16] MEDS: SODIUM BICARBONATE TAB 650 MG TAB PO SCH ×2 (07:43→17:37)
--- NOTE | 2018-10-16 08:20 | XR ---
EXAMINATION TYPE: XR chest 1V DATE OF EXAM: 10/16/2018 COMPARISON: Prior chest x-ray 10/15/2018 HISTORY: Abnormal chest x-ray TECHNIQUE: Single frontal view of the chest is obtained. FINDINGS: Findings are similar to prior exam. Patient is post median sternotomy and atrial appendage clipping placement. Aorta is dense. Heart is enlarged. Persistent abnormal increased attenuation at the right lung base obscures the hemidiaphragm and right heart border. No evident pneumothorax. Pulmo nary vascularity is prominent. Patient is rotated and there are overlying cardiac leads. Prominent marta ng volumes may be indicative of underlying COPD. IMPRESSION: Findings are similar to prior exam. Correlate for possible congestive heart failure, pne umonia not excluded. Probable pleural effusion.
[2018-10-16] MEDS: PANTOPRAZOLE 40 MG/10 ML VIAL IVP SCH (08:24)
[2018-10-16] MEDS ORDERED: LIDOCAINE 1% INJ 10MG/ML (20 ML MDV) SQ ONE (09:10)
--- NOTE | 2018-10-16 09:43 | XR ---
EXAMINATION TYPE: XR chest 1V portable DATE OF EXAM: 10/16/2018 COMPARISON: 10/16/2018 HISTORY: PICC line placement TECHNIQUE: Single frontal view of the chest is obtained. FINDINGS: There is chronic right hemidiaphragm elevation and similar-appearing right pleural effusio n. There is increasing retrocardiac airspace disease and increasing left pleural effusion. Mild pulmo nary vascular congestion persists. Right PICC has been placed terminating near the cavoatrial junctio n. No pneumothorax is appreciated. Post CABG changes of the chest are seen. There is obscuration of t he cardiomediastinal silhouette. Possible postsurgical change of the thoracic spine versus external a rtifact. IMPRESSION: Newly placed right PICC, probably terminating in the distal aspect cavoatrial junction. Increasing retrocardiac airspace disease and small left pleural effusion and stable right pleural eff usion.
[2018-10-16] MEDS ORDERED: SIMETHICONE 40 MG/0.6 ML DROPS 2,000 MG/30 ML BOTTLE PO ONE (09:52)
--- NOTE | 2018-10-16 10:01 | IR ---
PICC LINE PLACEMENT: HISTORY: Infection requiring long-term antibiotic therapy PROCEDURE: Ultrasound guidance of PICC line placement. DOGMAN/WOMAN: Dr. Christensen. COMPLICATIONS: None ANESTHESIA: 1. 1% Lidocaine locally. FINDINGS/TECHNIQUE: The procedure was explained to the patient. The risks, complications, benefits and alternatives were discussed and any questions were answered. Informed consent was obtained. The patient was placed supine on the fluoroscopic table and prepped and draped in the usual sterile [facility] ion. Access was achieved through a pre-existing right cephalic vein IV line with the O.018 wire passe d through the line in the line removed over guidewire. The vein is patent. A 5-F. sheath was placed over the guidewire. The guidewire and dilator were removed and a 5-F. Double lumen PICC line was pl aced through the sheath with the chest x-ray confirming the tip at the level of the SVC. The sheath was removed, the catheter was flushed and sutured into position. The patient was stable throughout t he procedure and remained stable upon discharge from the Department of Radiology. The vein puncture was patent under ultrasound. A crespo scale image was obtained to document patency of the vein punctured. All elements of the maximal barrier technique were utilized. IMPRESSION: 1. Successful PICC line placement under ultrasound performed bedside within the ICU.
--- NOTE | 2018-10-16 11:56 | P.PN ---
Subjective Progress Note Date: 10/16/18 Principal diagnosis: GI bleed anemia Status post negative EGD yesterday for burgundy-colored bowel movements. Receiving capsule endoscopy study today. 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 No bloody bowel movements this morning. Hemoglobin 7.3. Objective - Vital Signs Vital signs: Vital Signs Temp 97.5 F L 10/16/18 08:00 Pulse 61 10/16/18 11:00 Resp 18 10/16/18 11:00 BP 114/48 10/16/18 11:00 Pulse Ox 96 10/16/18 11:00 Intake & Output 10/15/18 10/16/18 10/16/18 18:59 06:59 18:59 Intake Total 1205 445 105 Output Total 842 745 275 Balance 363 -300 -170 Weight 121.835 kg 114 kg Intake: IV 345 295 105 Piperacillin-Tazobactam 3 125 175 75 .375 gm In Sodium Chloride 0.9% 100 ml @ 25 mls/hr IVPB Q8HR [facility] Rx# :[id number] Sodium Chloride 0.9% 500 120 120 30 ml 500 ml @ 10 mls/hr IV .Q24H [facility] Rx#:[id number] Oral 240 150 Blood Product 620 Rc Cpda-1 Unit 310 [id number] Output: Urine 842 745 275 Other: Voiding Method Indwelling Catheter Indwelling Catheter Indwelling Catheter # Bowel Movements 1 1 - Exam General appearance: The patient is alert, oriented, in no acute distress. HET: Head is normocephalic and atraumatic. Pupils are equal and reactive. Oropharynx is clear without lesions. Neck: Supple without lymphadenopathy. Trachea midline. Heart: S1 S2. Regular rate and rhythm. Lungs: No crackles or wheezes are heard. Abdomen: Soft, nontender, nondistended with bowel sounds. No peritoneal signs. No palpable organomegaly or masses. Neurological: No focal deficits. Strength and sensation are grossly intact. - Labs CBC & Chem 7: 10/16/18 04:45 10/16/18 04:45 Labs: Abnormal Lab Results - Last 24 Hours (Table) 10/14/18 10/15/18 10/15/18 Range/Units 15:13 11:00 19:00 WBC 10.9 H (3.8-10.6) k/uL RBC 2.31 L 2.46 L (3.80-5.40) m/uL Hgb 6.8 L* 7.0 L (11.4-16.0) gm/dL Hct 21.1 L 22.2 L (34.0-46.0) % RDW 18.8 H 18.1 H (11.5-15.5) % Neutrophils # 9.3 H 8.4 H (1.3-7.7) k/uL Lymphocytes # 0.9 L (1.0-4.8) k/uL PT (9.0-12.0) sec INR (<1.2) Chloride (98-107) mmol/L Carbon Dioxide (22-30) mmol/L BUN (7-17) mg/dL Calcium (8.4-10.2) mg/dL Crossmatch See Detail 10/15/18 10/16/18 10/16/18 Range/Units 23:30 04:45 04:45 WBC 10.8 H 11.4 H (3.8-10.6) k/uL RBC 2.52 L 2.50 L (3.80-5.40) m/uL Hgb 7.3 L 7.3 L (11.4-16.0) gm/dL Hct 22.8 L 22.7 L (34.0-46.0) % RDW 18.7 H 18.7 H (11.5-15.5) % Neutrophils # 9.1 H 9.8 H (1.3-7.7) k/uL Lymphocytes # (1.0-4.8) k/uL PT (9.0-12.0) sec INR (<1.2) Chloride 111 H (98-107) mmol/L Carbon Dioxide 31 H (22-30) mmol/L BUN 48 H (7-17) mg/dL Calcium 7.9 L (8.4-10.2) mg/dL Crossmatch 10/16/18 Range/Units 04:45 WBC (3.8-10.6) k/uL RBC (3.80-5.40) m/uL Hgb (11.4-16.0) gm/dL Hct (34.0-46.0) % RDW (11.5-15.5) % Neutrophils # (1.3-7.7) k/uL Lymphocytes # (1.0-4.8) k/uL PT 12.4 H (9.0-12.0) sec INR 1.2 H (<1.2) Chloride (98-107) mmol/L Carbon Dioxide (22-30) mmol/L BUN (7-17) mg/dL Calcium (8.4-10.2) mg/dL Crossmatch Microbiology - Last 24 Hours (Table) 10/15/18 09:20 Gram Stain - Preliminary Knee - Left Wound Culture - Preliminary Pseudomonas spec Presumptive Staph aureus Assessment and Plan (1) GI bleed Narrative/Plan: 67-year-old female admitted with acute painless rectal bleeding acute blood loss anemia passing burgundy colored bowel movements with recent EGD colonoscopy small bowel endoscopy within the past 30 days with no evidence of active bleeding or bleeding sources. Possible small bowel pathology exacerbated by anticoagulation. Recent surveillance EGD yesterday unremarkable small bowel capsule endoscopy in progress. Current Visit: Yes Status: Acute Code(s): K92.2 - GASTROINTESTINAL HEMORRHAGE, UNSPECIFIED SNOMED Code(s): 08176658 (2) Blood loss anemia Current Visit: No Status: Acute Code(s): D50.0 - IRON DEFICIENCY ANEMIA SECONDARY TO BLOOD LOSS (CHRONIC) SNOMED Code(s): 494105042 (3) Afib Current Visit: No Status: Acute Code(s): I48.91 - UNSPECIFIED ATRIAL FIBRILLATION SNOMED Code(s): 22535122 Plan: 1. CBC mention. Continue Protonix therapy. Clear liquid diet and advance. We'll continue to follow with you. Assessment and plan a care discussed with Dr. Lowe
[2018-10-16 12:41] LABS: Anisocytosis Moderate; Basophils # (A) 0.1 k/uL (0-0.2); Basophils % (A) 1 %; Eosinophils # (A) 0.2 k/uL (0-0.7); Eosinophils % (A) 1 %; HCT 21.6 % (34.0-46.0); Hypochromasia Marked; Lymphocytes # (A) 0.9 k/uL (1.0-4.8); Lymphocytes % (A) 9 %; MCH 29.3 pg (25.0-35.0); MCHC 32.2 g/dL (31.0-37.0); MCV 90.9 fL (80.0-100.0); Macrocytosis Slight; Mean Platelet Volume 10.2; Monocytes # (A) 0.3 k/uL (0-1.0); Monocytes % (A) 3 %; Neutrophils # (A) 8.9 k/uL (1.3-7.7); Neutrophils % (A) 85 %; Platelet Count 146 k/uL (150-450); Poikilocytosis Moderate; RBC 2.37 m/uL (3.80-5.40); RDW 20.3 % (11.5-15.5); WBC 10.5 k/uL (3.8-10.6)
--- NOTE | 2018-10-16 14:48 | P.PN ---
Subjective Progress Note Date: 10/16/18 On 10/16/2018 the patient is awake and alert. Overnight the patient had 4 bouts of bloody maroon colored bowel movement activities. During this time the patient's hemoglobin dropped again and she required another unit of packed RBC and the patient's total packed of his transfusions have been 3 units. The patient was taken for an EGD yesterday and the EGD showed no source of an upper GI bleed. Capsule studies to be repeated at this point in time. Meanwhile the patient on no anticoagulation hemoglobin is at 7. The patient would have a PICC line inserted today due to difficulties establishing IV access. No significant respiratory distress. The patient's has a right-sided pleural effusion that we intend to drain a later stage. No respiratory difficulties. No nausea. No vomiting. No bowel pain. The local wound care is being done to the left lower extremity wound and the cultures of been sent and the patient is currently on IV Zosyn. She is awake. His communicating. Surgical wound site over the sternum and clean and intact. This is a earlier bypass as well as on this patient back in August 2018. Chest tube sites are also scabbed and well-healed. He has significant bruising in her right upper extremity skin related to previous IV lines and blood loss. Objective - Vital Signs Vital signs: Vital Signs Temp 97.4 F L 10/16/18 12:00 Pulse 64 10/16/18 14:00 Resp 18 10/16/18 14:00 BP 115/38 10/16/18 14:00 Pulse Ox 100 10/16/18 14:00 Intake & Output 10/15/18 10/16/18 10/16/18 18:59 06:59 18:59 Intake Total 1205 445 380 Output Total 842 745 575 Balance 363 300 -195 Weight 121.835 kg 114 kg Intake: IV 345 295 140 Piperacillin-Tazobactam 3 125 175 100 .375 gm In Sodium Chloride 0.9% 100 ml @ 25 mls/hr IVPB Q8HR [facility] Rx# :[id number] Sodium Chloride 0.9% 500 120 120 40 ml 500 ml @ 10 mls/hr IV .Q24H JUANJOSE Rx#:[id number] Oral 240 150 240 Blood Product 620 Rc Cpda-1 Unit 310 [id number] Output: Urine 842 745 575 Other: Voiding Method Indwelling Catheter Indwelling Catheter Indwelling Catheter # Bowel Movements 1 1 - Exam Obese, comfortable likely distress Head exam was generally normal. There was no scleral icterus or corneal arcus. Mucous membranes were moist. Neck was supple and without jugular venous distension, thyromegaly, or carotid bruits. Carotids were easily palpable bilaterally. There was no adenopathy. Mallampati class IV and the patient has significant crowding of the posterior oropharynx Lungs sounds are diminished specially in the right lung base along with dullness to percussion. Sternum stable clean and intact. Patient is a well-healed scar for thoracotomy over the anterior chest. Heart sounds are irregular consistent with atrial fibrillation. Rate is controlled for now. No significant murmurs appreciated and the patient has a sternotomy scar over the anterior chest and the chest tube sites have been healing nicely. Abdominal exam revealed normal bowel sounds. The abdomen was soft, non-tender, and without masses, organomegaly, or appreciable enlargement of the abdominal aorta. Extremities revealed +1 pitting edema. The patient has extensive swelling and bruising of the right upper extremity from previous blood draws. The patient is an open wound measuring 1 x 4 cm with a purulent base in the left lower extremity along the medial aspect of the left leg. Pulses in lower extremities are diminished for now. Neurologically the patient is motor weakness. Gait cannot be assessed. No focal neurological deficit. Cranial nerves are intact. Pupils are equal and reactive to light. Skin the patient has areas of bruising in addition to a stage II wound in the left lower extremity with a based being covered with purulent material. - Labs CBC & Chem 7: 10/16/18 11:50 10/16/18 04:45 Labs: Abnormal Lab Results - Last 24 Hours (Table) 10/14/18 10/15/18 10/15/18 Range/Units 15:13 19:00 23:30 WBC 10.8 H (3.8-10.6) k/uL RBC 2.46 L 2.52 L (3.80-5.40) m/uL Hgb 7.0 L 7.3 L (11.4-16.0) gm/dL Hct 22.2 L 22.8 L (34.0-46.0) % RDW 18.1 H 18.7 H (11.5-15.5) % Plt Count (150-450) k/uL Neutrophils # 8.4 H 9.1 H (1.3-7.7) k/uL Lymphocytes # 0.9 L (1.0-4.8) k/uL PT (9.0-12.0) sec INR (<1.2) Chloride (98-107) mmol/L Carbon Dioxide (22-30) mmol/L BUN (7-17) mg/dL Calcium (8.4-10.2) mg/dL Crossmatch See Detail 10/16/18 10/16/18 10/16/18 Range/Units 04:45 04:45 04:45 WBC 11.4 H (3.8-10.6) k/uL RBC 2.50 L (3.80-5.40) m/uL Hgb 7.3 L (11.4-16.0) gm/dL Hct 22.7 L (34.0-46.0) % RDW 18.7 H (11.5-15.5) % Plt Count (150-450) k/uL Neutrophils # 9.8 H (1.3-7.7) k/uL Lymphocytes # (1.0-4.8) k/uL PT 12.4 H (9.0-12.0) sec INR 1.2 H (<1.2) Chloride 111 H (98-107) mmol/L Carbon Dioxide 31 H (22-30) mmol/L BUN 48 H (7-17) mg/dL Calcium 7.9 L (8.4-10.2) mg/dL Crossmatch 10/16/18 Range/Units 11:50 WBC (3.8-10.6) k/uL RBC 2.37 L (3.80-5.40) m/uL Hgb 7.0 L (11.4-16.0) gm/dL Hct 21.6 L (34.0-46.0) % RDW 20.3 H (11.5-15.5) % Plt Count 146 L (150-450) k/uL Neutrophils # 8.9 H (1.3-7.7) k/uL Lymphocytes # 0.9 L (1.0-4.8) k/uL PT (9.0-12.0) sec INR (<1.2) Chloride (98-107) mmol/L Carbon Dioxide (22-30) mmol/L BUN (7-17) mg/dL Calcium (8.4-10.2) mg/dL Crossmatch Microbiology - Last 24 Hours (Table) 10/15/18 09:20 Gram Stain - Preliminary Knee - Left Wound Culture - Preliminary Pseudomonas spec Presumptive Staph aureus Assessment and Plan Plan: 1 acute and recurrent GI bleed, likely of an upper GI source. Recent EGD and small bowel endoscopy done showed no evidence of any bleeding and the colonoscopy was also negative. Hemoglobin dropped and the patient received a total of 3 units of packed RBC. A repeat EGD was done and it was negative again the patient will undergo another Endoscopy. Meanwhile, She Is Doing Well. She Is on Clear Liquid Diet. Hemodynamically Stable. Most Recent Hemoglobin Is at 7.5. During This Current Hospital Physician She Has a Total of 3 Units of Packed RBC. 2 anemia, secondary to blood loss and the patient got transferred units of packed RBC 3 coronary artery disease with recent bypass surgery, the patient underwent an off-pump three-vessel bypass surgery on 08/23/2018 4 right-sided pleural effusion, likely post surgical in nature that needs to be further investigated and today 90 the size of the pleural effusions, worse compared to her last chest x-ray 5 atrial fibrillation the rate is controlled and the patient is on long-term and to coagulation with Eliquis 6 history of coronary disease and previous [place] of a non-STEMI type 7 hypertension 8 hyperlipidemia 9 uterine cancer 10 medical debility seconds above-mentioned comorbidities. The patient also has bilateral knee replacement and ankle surgery on the right and she has difficulty with morbidity and gait Plan Endoscopy. Clear Liquid Diet. Chest X-Ray Chair. Thoracentesis Probably with in Next 24-48 Hours. Pseudomonas Growth in the Lower Extremity Wound and the Patient Is Currently on IV Zosyn. Local Wound Care with Aquacel Silver. No Signs of Any Septicemia. The Patient Is Post Coronary Artery Bypass Surgery. She Is Free of Any Chest Pain. We'll Continue to Follow. She Can Be Transferred to Medical Surgical Floor Today with telemetry or [address] [place] [id number]
[2018-10-16] MEDS: POTASSIUM CHLORIDE ER 20 MEQ TAB.ER PO SCH (17:38)
[2018-10-16 18:21] LABS: Anisocytosis Moderate; Basophils # (A) 0.1 k/uL (0-0.2); Basophils % (A) 1 %; Eosinophils # (A) 0.2 k/uL (0-0.7); Eosinophils % (A) 2 %; HCT 23.5 % (34.0-46.0); HGB 7.4 gm/dL (11.4-16.0); Hypochromasia Marked; Lymphocytes # (A) 1.1 k/uL (1.0-4.8); Lymphocytes % (A) 10 %; MCH 28.9 pg (25.0-35.0); MCHC 31.3 g/dL (31.0-37.0); MCV 92.3 fL (80.0-100.0); Macrocytosis Slight; Mean Platelet Volume 10.3; Monocytes # (A) 0.3 k/uL (0-1.0); Monocytes % (A) 2 %; Neutrophils # (A) 9.3 k/uL (1.3-7.7); Neutrophils % (A) 84 %; Platelet Count 157 k/uL (150-450); Poikilocytosis Moderate; RBC 2.55 m/uL (3.80-5.40); RDW 21.3 % (11.5-15.5); WBC 11.1 k/uL (3.8-10.6)
[2018-10-16] MEDS: ATORVASTATIN 80 MG TAB PO SCH ×2 (20:46→20:53)
[2018-10-16] MEDS: PANTOPRAZOLE 40 MG TABLET PO SCH (20:46)
--- NOTE | 2018-10-16 21:37 | PN ---
PROGRESS NOTE DATE OF SERVICE: October 16, 2018 PRESENTING COMPLAINT: GI bleed. INTERVAL HISTORY: This patient with repeated admissions for GI bleed, who has previously had EGD, colonoscopy, small capsule study, yet again presented with burgundy stools. EGD yesterday unremarkable. Remains in the ICU. Today he is going through a small bowel capsule study. Also on the last admission, patient had 4 units of blood diet, sitting up, awake. REVIEW OF SYSTEMS: Done for constitutional, cardiovascular, GI, pulmonary; relevant findings as above. CURRENT MEDICATIONS: Reviewed that include IV Zosyn for lower extremity wounds. PHYSICAL EXAMINATION: VITAL SIGNS: On examination, temperature 97.5, pulse 72, respiration 23, blood pressure 117/59, pulse ox 97% on 2 L. GENERAL APPEARANCE: Sitting up, tired-appearing. EYES: Pupils equal. Conjunctivae pale. NECK: JVD unable to assess. Mass not palpable. RESPIRATORY: Effort increased. LUNGS: Decreased breath sounds. CARDIOVASCULAR: Heart sounds muffled. Edema present. ABDOMEN: Soft, nontender. Liver and spleen not palpable. PSYCHIATRY: Awake, tired, but able to answer questions. DERMATOLOGICAL: Right upper extremity large area of bruising from last admission. EXTREMITIES: Lower extremities: Bilateral lower extremity wounds some being raw in the left leg at the junction of the lower and upper leg medially with some drainage. INVESTIGATIONS: White count 10.5, hemoglobin 7, potassium 3.7. ASSESSMENT: 1. Severe recurrent gastrointestinal bleed with recent EGD capsule and colonoscopy being negative. Had a EGD repeat yesterday unremarkable. Getting a small bowel capsule today. 2. Acute severe blood loss anemia, status post blood transfusions. 3. Coronary artery disease with history of coronary bypass on August 20. 4. Chronic congestive heart failure from systolic dysfunction EF 35-40 percent. 5. Hypertensive heart disease. 6. Paroxysmal atrial fibrillation in sinus rhythm. 7. Essential hypertension. 8. Complete occlusion of the right internal carotid artery and 80% occlusion of the left internal carotid artery. 9. Chronic obstructive pulmonary disease. 10.Peripheral artery disease. 11.Chronic venous insufficiency lower extremity. 12.Hypercalcemia in a patient with known hyperparathyroidism. 13.Lower extremity wound on the left flank. 14.Chronic kidney disease probably from nephrosclerosis. PLAN: Continue current medication and treatment plan. Patient put on IV Zosyn. We will consult ID for lower extremity wounds. The patient getting a capsule study done today. Given multiple simple bleeds. The patient will now be discontinued on Eliquis. This may be visited in the future. The risk of bleeding has been far higher than the benefit in this case. The patient continues to be in the ICU. The patient did receive a total of 3 units of blood on this admission. MMODL / IJN: [id number] /
--- NOTE | 2018-10-16 22:18 | P.CONS ---
History of Present Illness - Reason for Consult Consult date: 10/16/18 Wound care to the legs Requesting physician: Christopher Almaraz - Chief Complaint Nonhealing wound to the legs x weeks - History of Present Illness Patient is 67-year-old female with a past medical history significant for coronary artery disease the patient is status post coronary artery bypass grafting on 08/20/2018 patient did have been grafting from her left leg, and the patient did have one wound on the left medial knee area that has not healed up since her surgery the patient did have mildly tender leaking pain to that wound area and decision to 3 out of 10 and no radiation is no surrounding swelling redness did have some minimal drainage culture has been obtained from the same site which is currently showing Pseudomonas and staph aureus the patient also have a significant swelling in both her lower extremity with some superficial wound to the right anterior leg area with minimal slough tissue no surrounding redness or any foul-smelling drainage, This patient basically has been admitted hospital with a GI bleed who is status post EGD that was unremarkable and is currently undergoing capsule study, Review of Systems positive points has been mentioned in the HPI rest of the system are negative Past Medical History Past Medical History: Atrial Fibrillation, Coronary Artery Disease (CAD), Chest Pain / Angina, COPD, GI Bleed, Hyperlipidemia, Hypertension, Myocardial Infarction (non Q-wave), Osteoarthritis (OA), Vascular Disorder Additional Past Medical History / Comment(s): UTERINE CANCER. LT CATARACT, morbid obesity. recent GIB 10/07/18 Last Myocardial Infarction Date:: 2003 History of Any Multi-Drug Resistant Organisms: None Reported Past Surgical History: Coronary Bypass/CABG, Heart Catheterization With Stent, Hysterectomy, Orthopedic Surgery Additional Past Surgical History / Comment(s): UZMA KNEE REPLACMENTS, RT ANKLE- METAL PLATE, RT ARM SX REPAIR D/T LACERATION. RT THUMB TENDON REPAIR," LT FOOT GREAT TOE BONE REMOVED". Off-pump 3 vessel CABG 08/23/2018 Past Anesthesia/Blood Transfusion Reactions: Blood Transfusion Reaction Additional Past Anesthesia/Blood Transfusion Reaction / Comm: PAST BLOOD [id number] Date of Last Stent Placement:: 2003 Past Psychological History: No Psychological Hx Reported Additional Psychological History / Comment(s): PT LIVES ALONE IN [place] currently in rehab at [facility].NO STEPS TO CLIMB. NO PETS. 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 Smoking Status: Former smoker Past Alcohol Use History: None Reported Additional Past Alcohol Use History / Comment(s): STARTED SMOKING AT AGE 14 Past Drug Use History: None Reported - Past Family History Mother Family Medical History: No Reported History Father History Unknown: Yes Medications and Allergies Home Medications Medication Instructions Recorded Confirmed Type Apixaban [Eliquis] 5 mg PO BID@0800,1700 10/27/17 10/14/18 History Cholecalciferol (Vitamin D3) 2,000 unit PO DAILY@1700 08/15/18 10/14/18 History [Vitamin D3] Acetaminophen Tab [Tylenol] 650 mg PO Q4HR PRN tab 08/28/18 10/14/18 Rx Magnesium Hydroxide [Milk of 2,400 mg PO DAILY PRN ml 08/28/18 10/14/18 Rx Magnesia Concentrate] Aspirin [Adult Low Dose Aspirin EC] 81 mg PO DAILY@1700 09/21/18 10/14/18 History Atorvastatin [Lipitor] 80 mg PO HS@2100 09/21/18 10/14/18 History Benzocaine/Menthol Lozeng [Cepacol 1 lozenge MUCOUS MEM Q2H PRN 09/21/18 10/14/18 History lozenge] Bisacodyl [Dulcolax] 10 mg RECTAL DAILY PRN 09/21/18 10/14/18 History Cinacalcet [Sensipar] 60 mg PO BID@0800,1700 09/21/18 10/14/18 History Furosemide [Lasix] 20 mg PO BID@0600,1400 09/21/18 10/14/18 History INSULIN ASPART (NovoLOG) [NovoLOG See Protocol SQ ACHS 09/21/18 10/14/18 History (formulary)] Ipratropium-Albuterol Nebulize 3 ml INHALATION RT-Q4H PRN 09/21/18 10/14/18 History [Duoneb 0.5 mg-3 mg/3 ml Soln] Metoprolol Tartrate [Lopressor] 12.5 mg PO BID@0800,1700 09/21/18 10/14/18 History Na Phos,M-B/Na Phos,Di-Ba [Fleet 133 ml RECTAL DAILY PRN 09/21/18 10/14/18 History Adult] Pantoprazole [Protonix] 40 mg PO DAILY@0600 09/21/18 10/14/18 History Potassium Chloride ER [K-Dur 20] 20 meq PO DAILY@1700 09/21/18 10/14/18 History Sennosides-Docusate Sodium 2 tab PO HS PRN 09/21/18 10/14/18 History [Senokot-S] Sodium Bicarbonate Tab 650 mg PO BID@0800,1700 09/21/18 10/14/18 History [place] Instant Breakfast 1 packet PO DAILY@0800 10/02/18 10/14/18 History Allergies Allergy/AdvReac Type Severity Reaction Status Date / Time No Known Allergies Allergy Verified 10/14/18 12:27 Physical Exam Vitals: Vital Signs Temp Pulse Resp BP Pulse Ox 10/16/18 14:00 64 18 115/38 100 10/16/18 13:00 68 21 121/38 95 10/16/18 12:00 97.4 F L 67 24 113/37 97 10/16/18 11:00 61 18 114/48 96 10/16/18 10:00 75 24 135/86 97 10/16/18 09:00 66 24 146/47 100 10/16/18 08:00 97.5 F L 71 23 133/56 100 10/16/18 07:00 71 29 H 123/46 99 10/16/18 06:00 58 L 19 123/112 100 10/16/18 05:00 63 23 122/54 99 10/16/18 04:01 97.5 F L 62 23 113/59 100 10/16/18 03:00 65 19 90/47 99 10/16/18 02:00 65 18 109/50 100 10/16/18 01:00 55 L 21 103/39 100 10/16/18 00:00 96.8 F L 62 21 98/53 100 10/15/18 23:00 61 22 111/50 100 10/15/18 22:29 62 7 L 111/50 100 10/15/18 22:00 57 L 20 103/42 99 10/15/18 21:00 63 14 114/58 99 10/15/18 20:00 97.2 F L 64 21 104/43 100 10/15/18 19:00 65 18 116/45 100 10/15/18 18:00 74 19 120/60 100 10/15/18 17:24 96.8 F L 68 18 112/65 100 10/15/18 17:00 96.7 F L 75 18 88/55 100 10/15/18 15:34 98.2 F 70 22 131/50 93 L 10/15/18 15:04 96.8 F L 72 14 110/71 100 10/15/18 15:00 77 16 110/71 100 10/15/18 14:54 97.0 F L 71 22 111/42 99 Intake and Output 10/15/18 10/16/18 10/16/18 22:59 06:59 14:59 Intake Total 1170 180 380 Output Total 765 420 575 Balance 405 -240 -195 Intake: IV 280 180 140 Piperacillin-Tazobactam 3 100 100 100 .375 gm In Sodium Chloride 0.9% 100 ml @ 25 mls/hr IVPB Q8HR [facility] Rx# :[id number] Sodium Chloride 0.9% 500 80 80 40 ml 500 ml @ 10 mls/hr IV .Q24H JUAN[facility]SE Rx#:[id number] Oral 270 240 Blood Product 620 Rc Cpda-1 Unit 310 [id number] Output: Urine 765 420 575 Other: Voiding Method Indwelling Catheter Indwelling Catheter Indwelling Catheter # Bowel Movements 1 1 Weight 114 kg GENERAL DESCRIPTION: An elderly female lying in bed, no distress. No tachypnea or accessory muscle of respiration use. HEENT: Shows Pallor , no scleral icterus. Oral mucous membrane is dry. No pharyngeal erythema or thrush NECK: Trachea central, no thyromegaly. LUNGS: Unlabored breathing. Decreased breath sound at the base. No wheeze or crackle. HEART: S1, S2, regular rate and rhythm. No loud murmur ABDOMEN: Soft, no tenderness , guarding or rigidity, no organomegaly EXTREMITIES: Diffuse swelling in both legs did have some superficial ulceration to the right anterior leg with minimal slough tissue no significant surrounding erythema patient also have a wound on left medial knee area with some slough tissue at the base no surrounding redness or any foul-smelling drainage SKIN: No rash, no masses palpable. NEUROLOGICAL: The patient is awake, alert, oriented x3, mood and affect normal Results CBC & Chem 7: 10/16/18 18:00 10/16/18 04:45 Labs: Abnormal Lab Results - Last 24 Hours (Table) 10/14/18 10/15/18 10/15/18 Range/Units 15:13 19:00 23:30 WBC 10.8 H (3.8-10.6) k/uL RBC 2.46 L 2.52 L (3.80-5.40) m/uL Hgb 7.0 L 7.3 L (11.4-16.0) gm/dL Hct 22.2 L 22.8 L (34.0-46.0) % RDW 18.1 H 18.7 H (11.5-15.5) % Plt Count (150-450) k/uL Neutrophils # 8.4 H 9.1 H (1.3-7.7) k/uL Lymphocytes # 0.9 L (1.0-4.8) k/uL PT (9.0-12.0) sec INR (<1.2) Chloride (98-107) mmol/L Carbon Dioxide (22-30) mmol/L BUN (7-17) mg/dL Calcium (8.4-10.2) mg/dL Crossmatch See Detail 10/16/18 10/16/18 10/16/18 Range/Units 04:45 04:45 04:45 WBC 11.4 H (3.8-10.6) k/uL RBC 2.50 L (3.80-5.40) m/uL Hgb 7.3 L (11.4-16.0) gm/dL Hct 22.7 L (34.0-46.0) % RDW 18.7 H (11.5-15.5) % Plt Count (150-450) k/uL Neutrophils # 9.8 H (1.3-7.7) k/uL Lymphocytes # (1.0-4.8) k/uL PT 12.4 H (9.0-12.0) sec INR 1.2 H (<1.2) Chloride 111 H (98-107) mmol/L Carbon Dioxide 31 H (22-30) mmol/L BUN 48 H (7-17) mg/dL Calcium 7.9 L (8.4-10.2) mg/dL Crossmatch 10/16/18 Range/Units 11:50 WBC (3.8-10.6) k/uL RBC 2.37 L (3.80-5.40) m/uL Hgb 7.0 L (11.4-16.0) gm/dL Hct 21.6 L (34.0-46.0) % RDW 20.3 H (11.5-15.5) % Plt Count 146 L (150-450) k/uL Neutrophils # 8.9 H (1.3-7.7) k/uL Lymphocytes # 0.9 L (1.0-4.8) k/uL PT (9.0-12.0) sec INR (<1.2) Chloride (98-107) mmol/L Carbon Dioxide (22-30) mmol/L BUN (7-17) mg/dL Calcium (8.4-10.2) mg/dL Crossmatch Microbiology - Last 24 Hours (Table) 10/15/18 09:20 Gram Stain - Preliminary Knee - Left Wound Culture - Preliminary Pseudomonas spec Presumptive Staph aureus Assessment and Plan Assessment: 1-left medial knee wound area , site of vein grafting for coronary bypass grafting--wound did have some slough tissue but no significant cellulitis did have some superficial cultures obtained more likely representing colonization rather than cellulitis will recommend local wound care 2-patient with right anterior leg venous stasis ulcer but no evidence of secondary cellulitis Plan: 1-we will apply them and honey to the left medial knee wound area followed by moist dressing to be changed daily 2-medahoney to the small wounds the right anterior leg changed daily 3-Craig wrap to both the leg from just above the toe to below the knee to keep the swelling down 4-no need for systemic antibiotics therapy as clinically doubt cellulitis or wound infection we will follow up on clinical condition and cultures to further adjust medication if needed Thank you for this consultation will follow this patient along with you Time with Patient: Greater than 30
[2018-10-16] MEDS: SODIUM CHLORIDE 0.9% 500 ML 500 ML IV SCH (23:57)
[2018-10-17 05:23] LABS: Anisocytosis Moderate; Basophils % (A) 0 %; Eosinophils # (A) 0.2 k/uL (0-0.7); Eosinophils % (A) 2 %; HCT 21.8 % (34.0-46.0); Hypochromasia Marked; Lymphocytes % (A) 10 %; MCHC 31.5 g/dL (31.0-37.0); MCV 92.1 fL (80.0-100.0); Macrocytosis Slight; Mean Platelet Volume 10.3; Monocytes # (A) 0.3 k/uL (0-1.0); Monocytes % (A) 3 %; Neutrophils # (A) 7.9 k/uL (1.3-7.7); Neutrophils % (A) 83 %; Platelet Count 159 k/uL (150-450); Poikilocytosis Moderate; RBC 2.37 m/uL (3.80-5.40); RDW 21.7 % (11.5-15.5); WBC 9.5 k/uL (3.8-10.6)
[2018-10-17 05:30] LABS: HGB 6.9 gm/dL (11.4-16.0)
[2018-10-17 05:40] LABS: Calcium 7.8 mg/dL (8.4-10.2); Potassium 3.4 mmol/L (3.5-5.1)
[2018-10-17] MEDS: FUROSEMIDE 20 MG TAB PO SCH ×2 (07:10→17:01)
[2018-10-17] MEDS: CINACALCET 30 MG TAB PO SCH ×2 (09:08→17:04)
[2018-10-17] MEDS: METOPROLOL TARTRATE 12.5 MG TAB PO SCH ×3 (09:08→17:00)
[2018-10-17] MEDS: SODIUM BICARBONATE TAB 650 MG TAB PO SCH ×2 (09:08→17:00)
[2018-10-17] MEDS: PANTOPRAZOLE 40 MG TABLET PO SCH ×2 (09:09→20:01)
[2018-10-17] MEDS: PIPERACILLIN-TAZOBACTAM 3.375 GM in SODIUM CHLORIDE 0.9% 100 ML IVPB SCH ×2 (09:09→17:01)
--- NOTE | 2018-10-17 11:52 | PN ---
PROGRESS NOTE DATE OF SERVICE: 10/17/2018 REASON FOR FOLLOWUP: Left medial knee postop wound and right lower extremity venous stasis ulcer, no cellulitis. INTERVAL HISTORY: The patient is currently afebrile. Patient is breathing slightly comfortably. Denies having any chest pain. Occasional cough. No abdominal pain and denies any pain to the lower extremity. PHYSICAL EXAMINATION: On examination, blood pressure 124/38 with a pulse of 54, temp 96.7. She is 99% on room air. General description is an elderly female lying in bed in no distress. RESPIRATORY SYSTEM: Unlabored breathing with decreased breath sounds at the bases. HEART: S1, S2. Regular rate and rhythm. ABDOMEN: Soft, no tenderness. Legs are currently wrapped. No obvious drainage on the dressing. LABS: White count normal. 9.5. BUN of 35, creatinine 1.08. Wound cultures with presumptive MRSA and Pseudomonas aeruginosa. DIAGNOSTIC IMPRESSION AND PLAN: 1. Patient with left medial knee area wound site of the recent vein grafting for the bypass. wound site culture more likely colonization. The patient did not have any active cellulitis at the site. Recommend local wound care with Medihoney. 2. Right lower extremity venous ulcer. Local wound care with Medihoney and compression dressing. Continue supportive care. MMODL / IJN: [id number] / GLORIA
--- NOTE | 2018-10-17 14:55 | P.PN ---
Subjective Progress Note Date: 10/17/18 On 10/17/2018 the patient is doing well. No further bouts of bleeding. The patient is resting comfortably in bed. There has been drop in hemoglobin down to 6. without evidence of any bleed. The patient will be given a unit of packed RBC today. Otherwise she is doing well. She is receiving IV antibiotics regarding a wound infection in the lower extremity. The wound culture showed Pseudomonas. The patient is afebrile. The patient is hemodynamically stable. We are still planning for a thoracentesis at a later stage regarding her postoperative right-sided pleural effusion isn't developed over the past 2 months. Nevertheless, she is resting comfortably in bed. No altered mentation. She is weak and she would require further rehabilitation. No nausea. No vomiting. No abdominal pain. He is moving all 4 extremities without any limitation. No fever or chills. Adequate urine output and the patient is a PICC line establishing her right upper extremity. Objective - Vital Signs Vital signs: Vital Signs Temp 98.7 F 10/17/18 12:00 Pulse 74 10/17/18 14:00 Resp 27 H 10/17/18 14:00 BP 90/64 10/17/18 14:00 Pulse Ox 99 10/17/18 14:00 Intake & Output 10/16/18 10/17/18 10/17/18 18:59 06:59 18:59 Intake Total 560 500 800 Output Total 800 465 200 Balance -240 35 600 Weight 118.6 kg 118.6 kg Intake: IV 200 140 180 Piperacillin-Tazobactam 3 150 50 100 .375 gm In Sodium Chloride 0.9% 100 ml @ 25 mls/hr IVPB Q8HR [facility] Rx# :[id number] Sodium Chloride 0.9% 500 50 90 80 ml 500 ml @ 10 mls/hr IV .Q24H [facility] Rx#:[id number] Oral 360 360 Blood Product 620 Rc As-1 Unit 310 [id number] Output: Urine 800 465 200 Other: Voiding Method Indwelling Catheter Indwelling Catheter Indwelling Catheter # Bowel Movements 1 - Exam Obese, comfortable likely distress Head exam was generally normal. There was no scleral icterus or corneal arcus. M ucous membranes were moist. Neck was supple and without jugular venous distension, thyromegaly, or carotid bruits. Carotids were easily palpable bilaterally. There was no adenopathy. Mallampati class IV and the patient has significant crowding of the posterior oropharynx Lungs sounds are diminished specially in the right lung base along with dullness to percussion. Sternum stable clean and intact. Patient is a well-healed scar for thoracotomy over the anterior chest. Heart sounds are irregular consistent with atrial fibrillation. Rate is controlled for now. No significant murmurs appreciated and the patient has a sternotomy scar over the anterior chest and the chest tube sites have been healing nicely. Abdominal exam revealed normal bowel sounds. The abdomen was soft, non-tender, and without masses, organomegaly, or appreciable enlargement of the abdominal aorta. Extremities revealed +1 pitting edema. The patient has extensive swelling and bruising of the right upper extremity from previous blood draws. The patient is an open wound measuring 1 x 4 cm with a purulent base in the left lower extremity along the medial aspect of the left leg. Pulses in lower extremities are diminished for now. Neurologically the patient is motor weakness. Gait cannot be assessed. No focal neurological deficit. Cranial nerves are intact. Pupils are equal and reactive to light. Skin the patient has areas of bruising in addition to a stage II wound in the left lower extremity with a based being covered with purulent material. - Labs CBC & Chem 7: 10/17/18 05:00 10/17/18 05:00 Labs: Abnormal Lab Results - Last 24 Hours (Table) 10/14/18 10/16/18 10/17/18 Range/Units 15:13 18:00 05:00 WBC 11.1 H (3.8-10.6) k/uL RBC 2.55 L 2.37 L (3.80-5.40) m/uL Hgb 7.4 L 6.9 L* (11.4-16.0) gm/dL Hct 23.5 L 21.8 L (34.0-46.0) % RDW 21.3 H 21.7 H (11.5-15.5) % Neutrophils # 9.3 H 7.9 H (1.3-7.7) k/uL Potassium (3.5-5.1) mmol/L Chloride (98-107) mmol/L BUN (7-17) mg/dL Creatinine (0.52-1.04) mg/dL Calcium (8.4-10.2) mg/dL Crossmatch See Detail 10/17/18 Range/Units 05:00 WBC (3.8-10.6) k/uL RBC (3.80-5.40) m/uL Hgb (11.4-16.0) gm/dL Hct (34.0-46.0) % RDW (11.5-15.5) % Neutrophils # (1.3-7.7) k/uL Potassium 3.4 L (3.5-5.1) mmol/L Chloride 109 H (98-107) mmol/L BUN 35 H (7-17) mg/dL Creatinine 1.08 H (0.52-1.04) mg/dL Calcium 7.8 L (8.4-10.2) mg/dL Crossmatch Microbiology - Last 24 Hours (Table) 10/15/18 09:20 Gram Stain - Preliminary Knee - Left Wound Culture - Preliminary Pseudomonas aeruginosa Presumptive MRSA Assessment and Plan Plan: 1 acute and recurrent GI bleed, likely of an upper GI source. Recent EGD and small bowel endoscopy done showed no evidence of any bleeding and the colonoscopy was also negative. Hemoglobin dropped and the patient received a to berhane of 3 units of packed RBC. A repeat EGD was done and it was negative and the patient is currently undergoing a capsule endoscopy. Further workup is in progress regarding the ongoing GI bleed. The patient is off anticoagulation for now. Hemoglobin is at 6.9 and the patient will receive another unit of packed RBC. Nevertheless, despite hemoglobin dropped, there is no signs of any GI bleeding for the time being. 2 anemia, secondary to blood loss and the patient got transferred units of pa cked RBC 3 coronary artery disease with recent bypass surgery, the patient underwent an off-pump three-vessel bypass surgery on 08/23/2018 4 right-sided pleural effusion, likely post surgical in nature that needs to be further investigated and today 90 the size of the pleural effusions, worse comp ared to her last chest x-ray 5 atrial fibrillation the rate is controlled and the patient is on long-term and to coagulation with Eliquis 6 history of coronary disease and previous [place] of a non-STEMI type 7 hypertension 8 hyperlipidemia 9 uterine cancer 10 medical debility seconds above-mentioned comorbidities. The patient also has bilateral knee replacement and ankle surgery on the right and she has difficulty with morbidity and gait Plan Endoscopy. Clear Liquid Diet. Transfused with a unit of packed RBC. Keep the patient off anticoagulants. The patient remains in atrial fibrillation with a controlled rate. Endoscopy. We'll Continue to Follow. Thoracentesis of the right lung is to follow.
--- NOTE | 2018-10-17 16:11 | P.PN ---
Subjective Progress Note Date: 10/17/18 Principal diagnosis: GI bleed anemia Status post negative EGD for burgundy-colored bowel movements. 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 Hemoglobin 6.9 today. Received a unit of blood. Objective - Vital Signs Vital signs: Vital Signs Temp 98.7 F 10/17/18 12:00 Pulse 74 10/17/18 14:00 Resp 27 H 10/17/18 14:00 BP 90/64 10/17/18 14:00 Pulse Ox 99 10/17/18 16:03 Intake & Output 10/16/18 10/17/18 10/17/18 18:59 06:59 18:59 Intake Total 560 500 800 Output Total 800 465 200 Balance -240 35 600 Weight 118.6 kg 118.6 kg Intake: IV 200 140 180 Piperacillin-Tazobactam 3 150 50 100 .375 gm In Sodium Chloride 0.9% 100 ml @ 25 mls/hr IVPB Q8HR [facility] Rx# :[id number] Sodium Chloride 0.9% 500 50 90 80 ml 500 ml @ 10 mls/hr IV .Q24H [facility] Rx#:[id number] Oral 360 360 Blood Product 620 Rc As-1 Unit 310 [id number] Output: Urine 800 465 200 Other: Voiding Method Indwelling Catheter Indwelling Catheter Indwelling Catheter # Bowel Movements 1 - Exam General appearance: The patient is alert, oriented, in no acute distress. HET: Head is normocephalic and atraumatic. Pupils are equal and reactive. Oropharynx is clear without lesions. Neck: Supple without lymphadenopathy. Trachea midline. Heart: S1 S2. Regular rate and rhythm. Lungs: No crackles or wheezes are heard. Abdomen: Soft, nontender, nondistended with bowel sounds. No peritoneal signs. No palpable organomegaly or masses. Neurological: No focal deficits. Strength and sensation are grossly intact. - Labs CBC & Chem 7: 10/17/18 05:00 10/17/18 05:00 Labs: Abnormal Lab Results - Last 24 Hours (Table) 10/14/18 10/16/18 10/17/18 Range/Units 15:13 18:00 05:00 WBC 11.1 H (3.8-10.6) k/uL RBC 2.55 L 2.37 L (3.80-5.40) m/uL Hgb 7.4 L 6.9 L* (11.4-16.0) gm/dL Hct 23.5 L 21.8 L (34.0-46.0) % RDW 21.3 H 21.7 H (11.5-15.5) % Neutrophils # 9.3 H 7.9 H (1.3-7.7) k/uL Potassium (3.5-5.1) mmol/L Chloride (98-107) mmol/L BUN (7-17) mg/dL Creatinine (0.52-1.04) mg/dL Calcium (8.4-10.2) mg/dL Crossmatch See Detail 10/17/18 Range/Units 05:00 WBC (3.8-10.6) k/uL RBC (3.80-5.40) m/uL Hgb (11.4-16.0) gm/dL Hct (34.0-46.0) % RDW (11.5-15.5) % Neutrophils # (1.3-7.7) k/uL Potassium 3.4 L (3.5-5.1) mmol/L Chloride 109 H (98-107) mmol/L BUN 35 H (7-17) mg/dL Creatinine 1.08 H (0.52-1.04) mg/dL Calcium 7.8 L (8.4-10.2) mg/dL Crossmatch Microbiology - Last 24 Hours (Table) 10/15/18 09:20 Gram Stain - Preliminary Knee - Left Wound Culture - Preliminary Pseudomonas aeruginosa Presumptive MRSA Assessment and Plan (1) GI bleed Narrative/Plan: 67-year-old female admitted with acute painless rectal bleeding acute blood loss anemia passing burgundy colored bowel movements with recent EGD colonoscopy small bowel endoscopy within the past 30 days with no evidence of active bleeding or bleeding sources. Possible small bowel pathology exacerbated by anticoagulation. Recent surveillance EGD yesterday unremarkable small bowel capsule endoscopy results pending. Current Visit: Yes Status: Acute Code(s): K92.2 - GASTROINTESTINAL HEMORRHAGE, UNSPECIFIED SNOMED Code(s): 80889265 (2) Blood loss anemia Current Visit: No Status: Acute Code(s): D50.0 - IRON DEFICIENCY ANEMIA SECONDARY TO BLOOD LOSS (CHRONIC) SNOMED Code(s): 325151245 (3) Afib Current Visit: No Status: Acute Code(s): I48.91 - UNSPECIFIED ATRIAL FIBRILLATION SNOMED Code(s): 35574416 Plan: 1. Continue present medical therapy. CBC monitoring blood transfusion indicated. We'll continue to follow. Continue GI prophylaxis. Assessment and plan a care discussed with Dr. Lowe
[2018-10-17] MEDS: POTASSIUM CHLORIDE ER 20 MEQ TAB.ER PO SCH (17:01)
[2018-10-17] MEDS: ATORVASTATIN 80 MG TAB PO SCH (20:01)
[2018-10-17 20:02] LABS: Anisocytosis Slight; Basophils % (A) 0 %; Eosinophils # (A) 0.1 k/uL (0-0.7); Eosinophils % (A) 1 %; HCT 27.4 % (34.0-46.0); Hypochromasia Moderate; Lymphocytes % (A) 10 %; MCH 28.9 pg (25.0-35.0); MCHC 31.3 g/dL (31.0-37.0); MCV 92.4 fL (80.0-100.0); Macrocytosis Slight; Mean Platelet Volume 9.8; Monocytes # (A) 0.3 k/uL (0-1.0); Monocytes % (A) 3 %; Neutrophils # (A) 8.4 k/uL (1.3-7.7); Neutrophils % (A) 85 %; Platelet Count 164 k/uL (150-450); Poikilocytosis Moderate; RBC 2.96 m/uL (3.80-5.40); RDW 19.5 % (11.5-15.5)
[2018-10-17 20:19] LABS: HGB 8.6 gm/dL (11.4-16.0)
[2018-10-18] MEDS: PIPERACILLIN-TAZOBACTAM 3.375 GM in SODIUM CHLORIDE 0.9% 100 ML IVPB SCH ×4 (00:19→23:52)
[2018-10-18] MEDS: SODIUM CHLORIDE 0.9% 500 ML 500 ML IV SCH ×2 (00:21→23:54)
[2018-10-18 04:34] LABS: Anisocytosis Moderate; Basophils % (A) 0 %; Eosinophils # (A) 0.1 k/uL (0-0.7); Eosinophils % (A) 1 %; HCT 24.6 % (34.0-46.0); HGB 7.6 gm/dL (11.4-16.0); Hypochromasia Marked; Lymphocytes # (A) 0.8 k/uL (1.0-4.8); Lymphocytes % (A) 9 %; MCH 28.9 pg (25.0-35.0); MCV 93.3 fL (80.0-100.0); Macrocytosis Slight; Mean Platelet Volume 9.7; Monocytes # (A) 0.2 k/uL (0-1.0); Monocytes % (A) 3 %; Neutrophils # (A) 7.4 k/uL (1.3-7.7); Neutrophils % (A) 86 %; Platelet Count 155 k/uL (150-450); Poikilocytosis Moderate; RBC 2.63 m/uL (3.80-5.40); RDW 20.1 % (11.5-15.5); WBC 8.7 k/uL (3.8-10.6)
[2018-10-18 04:48] LABS: Calcium 7.5 mg/dL (8.4-10.2); Potassium 3.1 mmol/L (3.5-5.1)
[2018-10-18] MEDS: FUROSEMIDE 20 MG TAB PO SCH ×2 (06:26→17:22)
[2018-10-18] MEDS: POTASSIUM CHLORIDE 20 MEQ in WATER FOR INJECTION 1 100ML.BAG IVPB SCH ×2 (06:27→09:45)
--- NOTE | 2018-10-18 06:38 | P.PN ---
Subjective This is a pleasant 67 years old female with past medical history of atrial fibrillation, coronary artery disease, recent GI bleed and 10/2018 , COPD, hyperlipidemia, hypertension, osteoarthritis, uterine Cancer.Presents with signs symptoms of GI bleed. Patient currently is in the critical care unit, Patient had negative EGD and capsule endoscopy she had recent colonoscopy as well. Source of bleeding is well known however it could be small bowel, aggravated by being on anticoagulation. Patient got several units of blood transfusion for her anemia. Also she is on Zosyn antibiotic for wound infection lower extremity with pseudomonas. She is awake, known in pain or distress. Diet is advanced Objective - Vital Signs Vital signs: Vital Signs Temp 98.7 F 10/17/18 12:00 Pulse 74 10/17/18 14:00 Resp 27 H 10/17/18 14:00 BP 90/64 10/17/18 14:00 Pulse Ox 99 10/17/18 16:03 Intake & Output 10/16/18 10/17/18 10/17/18 18:59 06:59 18:59 Intake Total 560 500 800 Output Total 800 465 200 Balance -240 35 600 Weight 118.6 kg 118.6 kg Intake: IV 200 140 180 Piperacillin-Tazobactam 3 150 50 100 .375 gm In Sodium Chloride 0.9% 100 ml @ 25 mls/hr IVPB Q8HR [facility] Rx# :[id number] Sodium Chloride 0.9% 500 50 90 80 ml 500 ml @ 10 mls/hr IV .Q24H [facility] Rx#:[id number] Oral 360 360 Blood Product 620 Rc As-1 Unit 310 [id number] Output: Urine 800 465 200 Other: Voiding Method Indwelling Catheter Indwelling Catheter Indwelling Catheter # Bowel Movements 1 - Exam GENERAL: The patient is alert and oriented x3, not in any acute distress. Obese HEENT: Pupils are round and equally reacting to light. EOMI. No scleral icterus. No conjunctival pallor. Normocephalic, atraumatic. No pharyngeal erythema. No thyromegaly. CARDIOVASCULAR: S1 and S2 present. No murmurs, rubs, or gallops. PULMONARY: Chest is clear to auscultation, no wheezing or crackles. ABDOMEN: Soft, nontender, nondistended, normoactive bowel sounds. No palpable organomegaly. MUSCULOSKELETAL: No joint swelling or deformity. -EXTREMITIES: No cyanosis, clubbing, or pedal edema. The left leg wound on the medial upper side NEUROLOGICAL: Gross neurological examination did not reveal any focal deficits. SKIN: No rashes. - Labs CBC & Chem 7: 10/18/18 04:17 10/18/18 04:17 Labs: Abnormal Lab Results - Last 24 Hours (Table) 10/14/18 10/16/18 10/17/18 Range/Units 15:13 18:00 05:00 WBC 11.1 H (3.8-10.6) k/uL RBC 2.55 L 2.37 L (3.80-5.40) m/uL Hgb 7.4 L 6.9 L* (11.4-16.0) gm/dL Hct 23.5 L 21.8 L (34.0-46.0) % RDW 21.3 H 21.7 H (11.5-15.5) % Neutrophils # 9.3 H 7.9 H (1.3-7.7) k/uL Potassium (3.5-5.1) mmol/L Chloride (98-107) mmol/L BUN (7-17) mg/dL Creatinine (0.52-1.04) mg/dL Calcium (8.4-10.2) mg/dL Crossmatch See Detail 10/17/18 Range/Units 05:00 WBC (3.8-10.6) k/uL RBC (3.80-5.40) m/uL Hgb (11.4-16.0) gm/dL Hct (34.0-46.0) % RDW (11.5-15.5) % Neutrophils # (1.3-7.7) k/uL Potassium 3.4 L (3.5-5.1) mmol/L Chloride 109 H (98-107) mmol/L BUN 35 H (7-17) mg/dL Creatinine 1.08 H (0.52-1.04) mg/dL Calcium 7.8 L (8.4-10.2) mg/dL Crossmatch Microbiology - Last 24 Hours (Table) 10/15/18 09:20 Gram Stain - Preliminary Knee - Left Wound Culture - Preliminary Pseudomonas aeruginosa Presumptive MRSA Assessment and Plan Assessment: Acute GI bleed, unknown source Acute blood loss anemia, status post multiple blood transfusions History of atrial fibrillation, off anticoagulation now for her GI bleed History of coronary artery disease Hypertension Hyperlipidemia History of COPD, no acute exacerbation History of uterine cancer Plan: This is a pleasant 67 years old female presents with gently. Continue with Protonix. She is currently nothing by mouth Lasix but she is off anticoagulation or aspirin. So for consulting us R following the case including critical care, gastroenterology and infectious disease. Continue with antibiotics as per ID recommendation.Labs and medication were reviewed.. Continue same treatment. Continue with symptomatic treatment. Resume home medication. Monitor lytes and vitals. DVT and GI prophylaxis. Further recommendations of the clinical course of the patient DVT prophylaxis: Not to calculation GI Prophylaxis: Protonix Prognosis is guarded
--- NOTE | 2018-10-18 08:12 | XR ---
EXAMINATION TYPE: XR chest 1V portable DATE OF EXAM: 10/18/2018 Comparison: 10/16/2018 Clinical History: 67-year-old female shortness of breath Findings: Redemonstrated right PICC line tip within the right atrium. Heart is enlarged with diffuse interstiti al/vascular prominence. Continued moderate right and small left pleural effusions with adjacent bibas ilar opacities. Overall findings are relatively stable. Median sternotomy fixation. Impression: 1. Stable cardiomegaly with interstitial changes, possible moderate CHF. 2. Continued moderate right and small left pleural effusions with adjacent bibasilar atelectasis and/ or consolidation.
[2018-10-18] MEDS: CINACALCET 30 MG TAB PO SCH ×2 (09:45→17:26)
[2018-10-18] MEDS: PANTOPRAZOLE 40 MG TABLET PO SCH ×2 (09:45→21:04)
[2018-10-18] MEDS: SODIUM BICARBONATE TAB 650 MG TAB PO SCH ×2 (09:45→17:22)
[2018-10-18] MEDS: METOPROLOL TARTRATE 12.5 MG TAB PO SCH ×2 (10:41→17:22)
--- NOTE | 2018-10-18 12:26 | PN ---
PROGRESS NOTE DATE OF SERVICE: 10/18/2018 REASON FOR FOLLOWUP: 1. Left medial knee wound, postsurgical. 2. Right lower extremity venostasis ulcer. INTERVAL HISTORY: The patient is currently afebrile. The patient has been breathing comfortably. She denies having any chest pain or any cough. No abdominal pain. No pain to the left medial knee wound area or to the right leg wound. PHYSICAL EXAMINATION: Blood pressure 150/59 with a pulse of 64, temperature 97.8, she is 99% on 3 L nasal cannula. General description is an elderly female, lying in bed in no distress. RESPIRATORY SYSTEM: Unlabored breathing, clear to auscultation anteriorly. HEART: S1, S2. Regular rate and rhythm. ABDOMEN: Soft, no tenderness. Left medial knee wound with slight drainage with no redness or any foul smelling. LABS: Hemoglobin 7.4, white count of 8.7, BUN of 28, creatinine 1.09. Wound culture with Pseudomonas aeruginosa and MRSA. DIAGNOSTIC IMPRESSION AND PLAN: 1. Patient with left medial knee wound, postsurgical. A vein graft site is currently with no evidence of any cellulitis, positive culture more likely representing colonization and does not need any systemic antibiotic therapy. Local care to continue with Medihoney. 2. Right anterior leg venostasis ulcer, no cellulitis. Local wound care with Medihoney followed by Craig wrap for compression. Continue supportive care. MMODL / IJN: [id number] / MTDD
--- NOTE | 2018-10-18 13:08 | P.PN ---
Subjective Progress Note Date: 10/18/18 On 10/18/2018 and seeing this patient for a follow-up. The patient is doing well. Resting comfortably in bed. The patient underwent an EGD and this study failed to show the source of bleeding. The patient underwent a capsule endoscopy and she will possibly have a enteroscopy knowing that the capsule endoscopy showed some evidence of small bowel source of GI bleed. The patient is on no anticoagulants for now. The patient is hemodynamically stable. The patient denied having any chest pain. No cough or sputum production. Her hemoglobin is stable at 7.6. Renal function stable at creatinine of 1.09. The chest x-rays showing a moderate-sized right-sided pleural effusion. The patient also is receiving IV antibiotics and wound care to the left lower extremity. No signs of septicemia. With a +8.7. Cardiac rhythm is sinus. PICC line is been established in the right upper extremity. Adequate urine output. No altered mentation. No other significant events otherwise. Volume is stable at 7.6. Objective - Vital Signs Vital signs: Vital Signs Temp 97.8 F 10/18/18 08:00 Pulse 64 10/18/18 10:00 Resp 24 10/18/18 10:00 BP 150/59 10/18/18 10:00 Pulse Ox 98 10/18/18 10:00 Intake & Output 10/17/18 10/18/18 10/18/18 18:59 06:59 18:59 Intake Total 1160 500 Output Total 200 405 Balance 960 95 Weight 118.6 kg 118.6 kg Intake: IV 180 260 Piperacillin-Tazobactam 3 100 100 .375 gm In Sodium Chloride 0.9% 100 ml @ 25 mls/hr IVPB Q8HR [facility] Rx# :[id number] Sodium Chloride 0.9% 500 80 160 ml 500 ml @ 10 mls/hr IV .Q24H [facility] Rx#:[id number] Oral 360 240 Blood Product 620 Rc As-1 Unit 310 [id number] Output: Urine 200 405 Other: Voiding Method Indwelling Catheter Indwelling Catheter Indwelling Catheter - Exam Obese, comfortable likely distress Head exam was generally normal. There was no scleral icterus or corneal arcus. Mucous membranes were moist. Neck was supple and without jugular venous distension, thyromegaly, or carotid bruits. Carotids were easily palpable bilaterally. There was no adenopathy. Mallampati class IV and the patient has significant crowding of the posterior oropharynx Lungs sounds are diminished specially in the right lung base along with dullness to percussion. Sternum stable clean and intact. Patient is a well-healed scar for thoracotomy over the anterior chest. Heart sounds are irregular consistent with atrial fibrillation. Rate is controlled for now. No significant murmurs appreciated and the patient has a sternotomy scar over the anterior chest and the chest tube sites have been h ealing nicely. Abdominal exam revealed normal bowel sounds. The abdomen was soft, non-tender, and without masses, organomegaly, or appreciable enlargement of the abdominal aorta. Extremities revealed +1 pitting edema. The patient has extensive swelling and bruising of the right upper extremity from previous blood draws. The patient is an open wound measuring 1 x 4 cm with a purulent base in the left lower extremity along the medial aspect of the left leg. Pulses in lower extremities are diminished for now. Neurologically the patient is motor weakness. Gait cannot be assessed. No focal neurological deficit. Cranial nerves are intact. Pupils are equal and reactive to light. Skin the patient has areas of bruising in addition to a stage II wound in the left lower extremity with a based being covered with purulent material. - Labs CBC & Chem 7: 10/18/18 04:17 10/18/18 04:17 Labs: Abnormal Lab Results - Last 24 Hours (Table) 10/17/18 10/18/18 10/18/18 Range/Units 19:35 04:17 04:17 RBC 2.96 L 2.63 L (3.80-5.40) m/uL Hgb 8.6 L D 7.6 L (11.4-16.0) gm/dL Hct 27.4 L 24.6 L (34.0-46.0) % RDW 19.5 H 20.1 H (11.5-15.5) % Neutrophils # 8.4 H (1.3-7.7) k/uL Lymphocytes # 0.8 L (1.0-4.8) k/uL Potassium 3.1 L (3.5-5.1) mmol/L Chloride 109 H (98-107) mmol/L Carbon Dioxide 33 H (22-30) mmol/L BUN 28 H (7-17) mg/dL Creatinine 1.09 H (0.52-1.04) mg/dL Calcium 7.5 L (8.4-10.2) mg/dL Microbiology - Last 24 Hours (Table) 10/15/18 09:20 Gram Stain - Preliminary Knee - Left Wound Culture - Preliminary Pseudomonas aeruginosa Presumptive MRSA Assessment and Plan Plan: 1 acute and recurrent GI bleed, likely of an upper GI source. Recent EGD and small bowel endoscopy done showed no evidence of any bleeding and the colonoscopy was also negative. Hemoglobin dropped and the patient received a total of 3 units of packed RBC. A repeat EGD was done and it was negative and the patient is currently undergoing a capsule endoscopy. Further workup is in progress regarding the ongoing GI bleed. The patient is off anticoagulation for now. Hemoglobin is at 6.9 and the patient will receive another unit of packed RBC. Nevertheless, despite hemoglobin dropped, there is no signs of any GI bleeding for the time being. Meanwhile, the patient is still being monitored. Today's hemoglobin is down to 7.6. The patient had a capsule endoscopy and the patient may have another enteroscopy at a later stage to identify the source of bleeding. The source of bleeding thought to be the upper GI and the patient is currently off anticoagulation. 2 anemia, secondary to blood loss and the patient got transferred units of packed RBC 3 coronary artery disease with recent bypass surgery, the patient underwent an off-pump three-vessel bypass surgery on 08/23/2018 4 right-sided pleural effusion, likely post surgical in nature that needs to be further investigated and today 90 the size of the pleural effusions, worse compared to her last chest x-ray 5 atrial fibrillation the rate is controlled and the patient is on long-term and to coagulation with Eliquis 6 history of coronary disease and previous [place] of a non-STEMI type 7 hypertension 8 hyperlipidemia 9 uterine cancer 10 medical debility seconds above-mentioned comorbidities. The patient also has bilateral knee replacement and ankle surgery on the right and she has difficulty with morbidity and gait Plan Monitor hemoglobin. Monitor for any GI bleeding it's continue wound care and IV Zosyn regarding the left lower extremity wound. Keep the anticoagulation and hold. We'll continue to follow.
[2018-10-18] MEDS: FERROUS SULFATE 325 MG TAB PO SCH ×2 (14:13→17:22)
--- NOTE | 2018-10-18 14:22 | P.PN ---
Subjective Progress Note Date: 10/18/18 Principal diagnosis: GI bleed anemia 67-year-old female admitted with acute GI bleed burgundy color bowel movements status post negative EGD. Capsule study Sunday reviewed indicated bleeding in the proximal small bowel. Per nursing passing darker near black bowel movements 2. Hemoglobin 7.6. Denies abdominal pain. Objective - Vital Signs Vital signs: Vital Signs Temp 97.4 F L 10/18/18 12:00 Pulse 77 10/18/18 14:00 Resp 28 H 10/18/18 14:00 BP 145/62 10/18/18 14:00 Pulse Ox 96 10/18/18 14:00 Intake & Output 10/17/18 10/18/18 10/18/18 18:59 06:59 18:59 Intake Total 1160 500 Output Total 200 405 Balance 960 95 Weight 118.6 kg 118.6 kg Intake: IV 180 260 Piperacillin-Tazobactam 3 100 100 .375 gm In Sodium Chloride 0.9% 100 ml @ 25 mls/hr IVPB Q8HR JUAN[facility]SE Rx# :[id number] Sodium Chloride 0.9% 500 80 160 ml 500 ml @ 10 mls/hr IV .Q24H JUANJOSE Rx#:[id number] Oral 360 240 Blood Product 620 Rc As-1 Unit 310 [id number] Output: Urine 200 405 Other: Voiding Method Indwelling Catheter Indwelling Catheter Indwelling Catheter - Exam General appearance: The patient is alert, oriented, in no acute distress. HET: Head is normocephalic and atraumatic. Pupils are equal and reactive. Oropharynx is clear without lesions. Neck: Supple without lymphadenopathy. Trachea midline. Heart: S1 S2. Regular rate and rhythm. Lungs: No crackles or wheezes are heard. Abdomen: Soft, nontender, nondistended with bowel sounds. No peritoneal signs. No palpable organomegaly or masses. Neurological: No focal deficits. Strength and sensation are grossly intact. - Labs CBC & Chem 7: 10/18/18 04:17 10/18/18 04:17 Labs: Abnormal Lab Results - Last 24 Hours (Table) 10/17/18 10/18/18 10/18/18 Range/Units 19:35 04:17 04:17 RBC 2.96 L 2.63 L (3.80-5.40) m/uL Hgb 8.6 L D 7.6 L (11.4-16.0) gm/dL Hct 27.4 L 24.6 L (34.0-46.0) % RDW 19.5 H 20.1 H (11.5-15.5) % Neutrophils # 8.4 H (1.3-7.7) k/uL Lymphocytes # 0.8 L (1.0-4.8) k/uL Potassium 3.1 L (3.5-5.1) mmol/L Chloride 109 H (98-107) mmol/L Carbon Dioxide 33 H (22-30) mmol/L BUN 28 H (7-17) mg/dL Creatinine 1.09 H (0.52-1.04) mg/dL Calcium 7.5 L (8.4-10.2) mg/dL Microbiology - Last 24 Hours (Table) 10/15/18 09:20 Gram Stain - Preliminary Knee - Left Wound Culture - Preliminary Pseudomonas aeruginosa Presumptive MRSA Assessment and Plan (1) GI bleed Narrative/Plan: Acute GI bleed passage of burgundy-colored bowel movements recent EGD colonoscopy 2 weeks ago with unremarkable findings.. Status post recent surveillance EGD no evidence of active bleeding followed by small bowel capsule endoscopy reporting bleeding in the proximal small bowel. Presently passing darker colored bowel movements. Current Visit: Yes Status: Acute Code(s): K92.2 - GASTROINTESTINAL HEMORRHAGE, UNSPECIFIED SNOMED Code(s): 76022634 (2) Blood loss anemia Current Visit: No Status: Acute Code(s): D50.0 - IRON DEFICIENCY ANEMIA SECONDARY TO BLOOD LOSS (CHRONIC) SNOMED Code(s): 142695339 (3) Afib Current Visit: No Status: Acute Code(s): I48.91 - UNSPECIFIED ATRIAL FIBRILLATION SNOMED Code(s): 71973812 Plan: 1. Continue to hold anticoagulation. Clear liquids. Push enteroscopy scheduled for tomorrow morning. Continue CBC monitoring and GI prophylaxis. Assessment and plan a care discussed with Dr. Lowe
--- NOTE | 2018-10-18 15:19 | CDI ---
Documentation Clarification Form Date: 10/18/2018 2:51:48 PM From: Shayy Haley RN, CCDS Admit Date: 10/14/2018 3:40:00 PM Patient Name: Ekaterina Carcamo Visit Number: [id number] Discharge Date: ATTENTION: The Clinical Documentation Specialists (CDI) and [facility] Coding Staff appreciate your assistance in clarifying documentation. Please respond to the clarification below the line at the bottom and electronically sign. The CDI & [facility] Coding staff will review the response and follow-up if needed. Please note: Queries are made part of the Legal Health Record. If you have any questions, please contact the author of this message via ITS. Dr. Darden Alvarez A pressure ulcer, coccyx stage II was documented in the nursing wound care assessment ongoing starting on 10/14/18. History/Risk Factors: Persistent atrial fibrillation, Congestive heart failure, Hypertension, Carotid artery disease, Peripheral artery disease, Chronic lower extremity with assistance insufficiency, Lower extremity wounds recently improved. Clinical Indicators: 67-year-old female with complaints of being tired lethargic and was found to have a hemoglobin of 6.2. Nursing wound assessment has documentation of a pressure ulcer on the coccyx. Location: Coccyx Wound description: Scat amount of drainage noted Treatment: Dry Dressing changed PRN Elements for accurate and compliant documentation of an ulcer: *The location/laterality of the ulcer *Etiology (decubitus/pressure, diabetic, PVD) *Stage I-IV, Unstageable, Suspected Deep Tissue Injury (To the deepest stage) *If the ulcer was present at admission (POA) or occurred after admission In your professional opinion, can you please evaluate and clarify the diagnosis, location, laterality and whether present on admission (POA): Stage 1 Pressure/Decubitus Ulcer (intact skin, non-blanching redness of local area) Stage 2 Pressure/Decubitus Ulcer (Partial thickness, loss of dermis, pink wound bed) Stage 3 Pressure/Decubitus Ulcer (Full thickness tissue loss) Stage 4 Pressure/Decubitus Ulcer (Full thickness tissue loss with exposed bone, tendon, or muscle. May have slough or eschar present) Unstageable Other condition, please specify Unable to determine Please indicate etiology of pressure ulcer (if known). (Last Revision: February 2017) __Stage II sacral pressure ulcer no cellulitis present on admission MTDD
--- NOTE | 2018-10-18 15:43 | CDI ---
Documentation Clarification Form Date: 10/16/2018 3:21:00 PM From: Shayy Haley RN, CCDS Admit Date: 10/14/2018 3:40:00 PM Patient Name: Ekaterina Carcamo Visit Number: [id number] Discharge Date: ATTENTION: The Clinical Documentation Specialists (CDI) and [facility] Coding Staff appreciate your assistance in clarifying documentation. Please respond to the clarification below the line at the bottom and electronically sign. The CDI & [facility] Coding staff will review the response and follow-up if needed. Please note: Queries are made part of the Legal Health Record. If you have any questions, please contact the author of this message via ITS. Dr. Christopher Almaraz/Dr. Simons Patient was admitted with recurrent gastrointestional bleed, with acute severe blood loss anemia. Chronic kidney disease probably from nephrosclerosis is documented in your H/P and ongoing progress notes. History/Risk Factors: Anemia, Hypertensive heart disease, Paroxysmal atrial fibrillation, Hypertension, Chronic congestive heart failure Clinical Indicators: Patient present with complaint of tired, weak and rundown. She was found with HGB 6.2. BUN and creatinine was 41/1.2 a week ago (prior admission) per your documentation. Admission; BUN 52, CR 1.07 GFR:53 10/15/2018 BUN 53, CR 1.03 GFR: 56 10/16/2018 BUN 48 CR 1.04 GFR 55 10/17/2018 BUN 35 CR 1.08 GFR 53 Treatment: IVF Monitor Labs, CBC, Lytes, BUN, CR In order to capture the severity of condition, please clarify if the condition signifies: CKD Stage 1 (GFR > 90) CKD Stage 2 (GFR 60-89) CKD Stage 3 (GFR 30-59) CKD Stage 4 (GFR 15-29) Other, please specify Unable to determine (Last Revision: August 2017) CKD Stage 3 (GFR 30-59) MTDD
[2018-10-18] MEDS: POTASSIUM CHLORIDE ER 20 MEQ TAB.ER PO SCH (17:26)
[2018-10-18] MEDS: ATORVASTATIN 80 MG TAB PO SCH (21:04)
[2018-10-19] MEDS: FERROUS SULFATE 325 MG TAB PO SCH ×2 (05:27→16:31)
[2018-10-19] MEDS: FUROSEMIDE 20 MG TAB PO SCH ×2 (05:27→14:20)
[2018-10-19 05:33] LABS: Anisocytosis Moderate; Basophils % (A) 0 %; Eosinophils # (A) 0.1 k/uL (0-0.7); Eosinophils % (A) 1 %; HCT 26.1 % (34.0-46.0); HGB 8.1 gm/dL (11.4-16.0); Hypochromasia Marked; Lymphocytes # (A) 0.8 k/uL (1.0-4.8); Lymphocytes % (A) 8 %; MCH 29.3 pg (25.0-35.0); MCHC 31.1 g/dL (31.0-37.0); MCV 94.2 fL (80.0-100.0); Macrocytosis Slight; Mean Platelet Volume 10.5; Monocytes # (A) 0.3 k/uL (0-1.0); Monocytes % (A) 3 %; Neutrophils # (A) 8.2 k/uL (1.3-7.7); Neutrophils % (A) 86 %; Platelet Count 139 k/uL (150-450); Poikilocytosis Moderate; RBC 2.77 m/uL (3.80-5.40); RDW 22.3 % (11.5-15.5); WBC 9.5 k/uL (3.8-10.6)
[2018-10-19 05:50] LABS: Calcium 7.9 mg/dL (8.4-10.2); Potassium 3.5 mmol/L (3.5-5.1)
[2018-10-19] MEDS: POTASSIUM CHLORIDE 20 MEQ in WATER FOR INJECTION 1 100ML.BAG IVPB SCH ×2 (06:58→09:43)
[2018-10-19] MEDS ORDERED: MIDAZOLAM 2 MG/2 ML VIAL ONE (08:38)
[2018-10-19] MEDS ORDERED: KETAMINE 10 MG/ML 20 ML VIAL ONE (08:38)
[2018-10-19] MEDS ORDERED: fentaNYL (PF) 50 MCG/ML 2 ML AMP ONE (08:38)
[2018-10-19] MEDS: SODIUM BICARBONATE TAB 650 MG TAB PO SCH ×2 (09:41→16:24)
[2018-10-19] MEDS: PANTOPRAZOLE 40 MG TABLET PO SCH ×2 (09:41→21:29)
[2018-10-19] MEDS: METOPROLOL TARTRATE 12.5 MG TAB PO SCH ×2 (09:41→16:24)
[2018-10-19] MEDS: CINACALCET 30 MG TAB PO SCH ×2 (09:41→16:24)
[2018-10-19] MEDS: PIPERACILLIN-TAZOBACTAM 3.375 GM in SODIUM CHLORIDE 0.9% 100 ML IVPB SCH ×2 (09:42→16:14)
--- NOTE | 2018-10-19 13:19 | P.PN ---
Subjective Progress Note Date: 10/19/18 Principal diagnosis: The patient is seen today 10/19/2018 in follow-up in the intensive care unit. She remains awake and alert in no acute distress. Denies any worsening shortnes s of breath, cough or congestion. She is maintaining O2 saturations in the 90s on 2 L/m per nasal cannula. Capsule study revealed bleeding in the proximal small bowel. Plan was for push enteroscopy today. She is status post a total of 4 units of packed red blood cells this admission. Current hemoglobin 8.1. Currently on Sensipar. Wound culture of the left knee is positive for pseudomonas and MRSA. White count 9.5. Hemoglobin 8.1. Platelet count 139,000. Creatinine 1.11. She remains on Zosyn. Objective - Vital Signs Vital signs: Vital Signs Temp 97.4 F L 10/19/18 12:01 Pulse 68 10/19/18 12:01 Resp 22 10/19/18 12:15 BP 124/57 10/19/18 12:01 Pulse Ox 95 10/19/18 12:01 Intake & Output 10/18/18 10/19/18 10/19/18 18:59 06:59 18:59 Intake Total 420 160 180 Output Total 225 650 175 Balance 195 -490 5 Weight 115 kg Intake: IV 180 160 180 Piperacillin-Tazobactam 3 100 100 .375 gm In Sodium Chloride 0.9% 100 ml @ 25 mls/hr IVPB Q8HR [facility] Rx# :[id number] Sodium Chloride 0.9% 500 80 160 80 ml 500 ml @ 10 mls/hr IV .Q24H JUANJOSE Rx#:[id number] Oral 240 Output: Urine 225 650 175 Other: Voiding Method Indwelling Catheter Indwelling Catheter Indwelling Catheter - Exam Obese, comfortable in no acute distress. On 2 L nasal cannula. Head exam was generally normal. There was no scleral icterus or corneal arcus. Mucous membranes were moist. Neck was supple and without jugular venous distension, thyromegaly, or carotid bruits. Carotids were easily palpable bilaterally. There was no adenopathy. Mallampati class IV and the patient has significant crowding of the posterior oropharynx Lungs sounds are diminished specially in the right lung base along with dullness to percussion. Sternum stable clean and intact. Patient is a well-healed scar for thoracotomy over the anterior chest. Heart sounds are irregular consistent with atrial fibrillation. Rate is controlled for now. No significant murmurs appreciated and the patient has a sternotomy scar over the anterior chest and the chest tube sites have been healing nicely. Abdominal exam revealed normal bowel sounds. The abdomen was soft, non-tender, and without masses, organomegaly, or appreciable enlargement of the abdominal aorta. Extremities revealed +1 pitting edema. The patient has extensive swelling and bruising of the right upper extremity from previous blood draws. The patient is an open wound measuring 1 x 4 cm with a purulent base in the left lower extremity along the medial aspect of the left leg. Pulses in lower extremities are diminished for now. Neurologically the patient is motor weakness. Gait cannot be assessed. No focal neurological deficit. Cranial nerves are intact. Pupils are equal and reactive to light. Skin the patient has areas of bruising in addition to a stage II wound in the left lower extremity with a based being covered with purulent material. - Labs CBC & Chem 7: 10/19/18 05:10 10/19/18 05:10 Labs: Abnormal Lab Results - Last 24 Hours (Table) 10/19/18 10/19/18 Range/Units 05:10 05:10 RBC 2.77 L (3.80-5.40) m/uL Hgb 8.1 L (11.4-16.0) gm/dL Hct 26.1 L (34.0-46.0) % RDW 22.3 H (11.5-15.5) % Plt Count 139 L (150-450) k/uL Neutrophils # 8.2 H (1.3-7.7) k/uL Lymphocytes # 0.8 L (1.0-4.8) k/uL Chloride 110 H (98-107) mmol/L Carbon Dioxide 33 H (22-30) mmol/L BUN 23 H (7-17) mg/dL Creatinine 1.11 H (0.52-1.04) mg/dL Calcium 7.9 L (8.4-10.2) mg/dL Microbiology - Last 24 Hours (Table) 10/15/18 09:20 Gram Stain - Final Knee - Left Wound Culture - Final Pseudomonas aeruginosa Methicillin resist S. aureus Assessment and Plan Assessment: Impression: 1 acute and recurrent GI bleed, likely of an upper GI source. Recent EGD and small bowel endoscopy done showed no evidence of any bleeding and the colonoscop y was also negative. Hemoglobin dropped and the patient received a total of 3 units of packed RBC. A repeat EGD was done and it was negative and the patient is currently undergoing a capsule endoscopy. Further workup is in progress regarding the ongoing GI bleed. The patient is off anticoagulation for now. Hemoglobin was at 6.9 and the patient will receive another unit of packed RBC. Today's hemoglobin is 8.1. The patient had a capsule endoscopy and the patient may have another enteroscopy at a later stage to identify the source of bleeding. The source of bleeding thought to be the upper GI and the patient is currently off anticoagulation. 2 anemia, secondary to blood loss and the patient got transferred as a toll of 4 units of packed RBC so far this admission. 3 coronary artery disease with recent bypass surgery, the patient underwent an off-pump three-vessel bypass surgery on 08/23/2018 4 right-sided pleural effusion, likely post surgical in nature that needs to be further investigated and today 90 the size of the pleural effusions, worse compared to her last chest x-ray 5 atrial fibrillation the rate is controlled and the patient is on long-term and to coagulation with Eliquis 6 history of coronary disease and previous KS of a non-STEMI type 7 hypertension 8 hyperlipidemia 9 uterine cancer 10 medical debility seconds above-mentioned comorbidities. The patient also has bilateral knee replacement and ankle surgery on the right and she has difficulty with morbidity and gait Plan: The patient was seen and evaluated by Dr. Banerjee. She does have continued moderate right-sided pleural effusion. Thoracentesis may be performed. GI services were planning for a push enteroscopy as well. We will continue to follow her closely here in the ICU. We will make further recommendations based on her clinical status. I, the cosigning physician, performed a history & physical examination of the patient. Lungs sounds with basilar crackles right greater than left. Maintaining good O2 saturations in the 90s on 2 L/m per nasal cannula. I discussed the assessment and plan of care with my nurse practitioner, Jessica Trevino. I attest to the above note as dictated by her.
[2018-10-19] MEDS: POTASSIUM CHLORIDE ER 20 MEQ TAB.ER PO SCH (16:24)
--- NOTE | 2018-10-19 16:24 | US ---
EXAMINATION TYPE: US chest DATE OF EXAM: 10/19/2018 COMPARISON: Radiograph 10/18/2018 CLINICAL HISTORY: 87-year-old female right pleural effusion. Right pleural effusion, exam done ghassan torres in ICU. TECHNIQUE: Targeted ultrasound of the posterior lower bilateral hemithoraces FINDINGS: EXAM MEASUREMENTS: Right Pleural Effusion pocket size: 12.9 cm Right skin surface to fluid distance: 3.2 cm Left Pleural Effusion pocket size: 1.8 cm Left skin surface to fluid distance: 6.5 cm Right side MARKED for possible thoracentesis outside the dept, with mobile lung tissue seen within mi d portion of pocket. Left side NOT MARKED for possible thoracentesis outside the dept. Pulmonologists are able to review the images in the patient?s EMR. IMPRESSIONS: Moderate size right pleural effusion. Trace effusion on the left. Marking performed on the right.
[2018-10-19] MEDS: ATORVASTATIN 80 MG TAB PO SCH (21:29)
[2018-10-20] MEDS: PIPERACILLIN-TAZOBACTAM 3.375 GM in SODIUM CHLORIDE 0.9% 100 ML IVPB SCH ×3 (00:59→17:55)
[2018-10-20] MEDS: SODIUM CHLORIDE 0.9% 500 ML 500 ML IV SCH (01:03)
[2018-10-20 05:45] LABS: Anisocytosis Moderate; Basophils % (A) 0 %; Eosinophils # (A) 0.1 k/uL (0-0.7); Eosinophils % (A) 1 %; HCT 25.9 % (34.0-46.0); HGB 7.8 gm/dL (11.4-16.0); Hypochromasia Marked; Lymphocytes # (A) 0.8 k/uL (1.0-4.8); Lymphocytes % (A) 8 %; MCH 28.5 pg (25.0-35.0); MCV 94.8 fL (80.0-100.0); Macrocytosis Slight; Mean Platelet Volume 9.8; Monocytes # (A) 0.2 k/uL (0-1.0); Monocytes % (A) 3 %; Neutrophils # (A) 8.4 k/uL (1.3-7.7); Neutrophils % (A) 87 %; Platelet Count 150 k/uL (150-450); Poikilocytosis Moderate; RBC 2.73 m/uL (3.80-5.40); RDW 20.9 % (11.5-15.5); WBC 9.6 k/uL (3.8-10.6)
[2018-10-20 06:02] LABS: Calcium 7.5 mg/dL (8.4-10.2); Magnesium 1.9 mg/dL (1.6-2.3); Potassium 3.5 mmol/L (3.5-5.1)
[2018-10-20] MEDS: FUROSEMIDE 20 MG TAB PO SCH ×2 (06:30→14:13)
[2018-10-20] MEDS: POTASSIUM CHLORIDE 20 MEQ in WATER FOR INJECTION 1 100ML.BAG IVPB SCH ×2 (06:31→08:55)
[2018-10-20] MEDS: MAGNESIUM SULFATE-D5W PMX 1 GM in DEXTROSE/WATER 1 100ML.BAG IVPB SCH ×2 (06:32→08:56)
[2018-10-20] MEDS: SODIUM BICARBONATE TAB 650 MG TAB PO SCH ×2 (08:59→17:56)
[2018-10-20] MEDS: FERROUS SULFATE 325 MG TAB PO SCH ×2 (08:59→17:56)
[2018-10-20] MEDS: METOPROLOL TARTRATE 12.5 MG TAB PO SCH ×2 (08:59→17:56)
[2018-10-20] MEDS: PANTOPRAZOLE 40 MG TABLET PO SCH ×2 (09:00→21:32)
[2018-10-20] MEDS: CINACALCET 30 MG TAB PO SCH ×2 (09:55→18:54)
--- NOTE | 2018-10-20 10:27 | P.PN ---
Subjective Progress Note Date: 10/20/18 Principal diagnosis: Acute and recurrent GI bleed. The patient is seen today 10/20/2018 in follow-up in the intensive care unit. She remains awake and alert in no acute distress. Continue good O2 saturations in the mid 90s on 2 L/m per nasal cannula. Slightly tachypneic. Afebrile. Hemodynamically stable. Status post 4 units of packed red blood cells this admission. Current hemoglobin 7.8. White count 9.6. Creatinine 0.98. Sodium 146. She is currently on sodium bicarb tablets. 0.920 ML's per hour. Continued on Zosyn. She remains on Protonix and Sensipar. Objective - Vital Signs Vital signs: Vital Signs Temp 97.1 F L 10/20/18 08:00 Pulse 64 10/20/18 10:00 Resp 27 H 10/20/18 10:00 BP 142/74 10/20/18 10:00 Pulse Ox 95 10/20/18 10:00 Intake & Output 10/19/18 10/20/18 10/20/18 18:59 06:59 18:59 Intake Total 465 80 500 Output Total 325 400 135 Balance 140 -320 365 Weight 120.4 kg Intake: IV 360 80 500 Magnesium Sulfate-D5w Pmx 100 1 gm In Dextrose/Water 1 100ml.bag @ 100 mls/hr IVPB Q1H [facility]UAN[facility]SE Rx#: [id number] Piperacillin-Tazobactam 3 200 100 .375 gm In Sodium Chloride 0.9% 100 ml @ 25 mls/hr IVPB Q8HR [facility]SE Rx# :[id number] Potassium Chloride 20 meq 100 In Water For Injection 1 100ml.bag @ 50 mls/hr IVPB Q2H JUANJOSE Rx#: [id number] Sodium Chloride 0.9% 500 160 80 200 ml 500 ml @ 10 mls/hr IV .Q24H JUANJOSE Rx#:[id number] Oral 105 Output: Urine 325 400 135 Other: Voiding Method Indwelling Catheter Indwelling Catheter - Exam Obese, comfortable in no acute distress. On 2 L nasal cannula. Head exam was generally normal. There was no scleral icterus or corneal arcus. Mucous membranes were moist. Neck was supple and without jugular venous distension, thyromegaly, or carotid bruits. Carotids were easily palpable bilaterally. There was no adenopathy. Mallampati class IV and the patient has significant crowding of the posterior oropharynx Lungs sounds are diminished specially in the right lung base along with dullness to percussion. Sternum stable clean and intact. Patient is a well-healed scar for thoracotomy over the anterior chest. Heart sounds are irregular consistent with atrial fibrillation. Rate is controlled for now. No significant murmurs appreciated and the patient has a sternotomy scar over the anterior chest and the chest tube sites have been healing nicely. Abdominal exam revealed normal bowel sounds. The abdomen was soft, non-tender, and without masses, organomegaly, or appreciable enlargement of the abdominal aorta. Extremities revealed +1 pitting edema. The patient has extensive swelling and bruising of the right upper extremity from previous blood draws. The patient is an open wound measuring 1 x 4 cm with a purulent base in the left lower extremity along the medial aspect of the left leg. Pulses in lower extremities are diminished for now. Neurologically the patient is motor weakness. Gait cannot be assessed. No focal neurological deficit. Cranial nerves are intact. Pupils are equal and reactive to light. Skin the patient has areas of bruising in addition to a stage II wound in the left lower extremity with a based being covered with purulent material. - Labs CBC & Chem 7: 10/20/18 05:06 10/20/18 05:06 Labs: Abnormal Lab Results - Last 24 Hours (Table) 10/20/18 10/20/18 Range/Units 05:06 05:06 RBC 2.73 L (3.80-5.40) m/uL Hgb 7.8 L (11.4-16.0) gm/dL Hct 25.9 L (34.0-46.0) % MCHC 30.0 L (31.0-37.0) g/dL RDW 20.9 H (11.5-15.5) % Neutrophils # 8.4 H (1.3-7.7) k/uL Lymphocytes # 0.8 L (1.0-4.8) k/uL Sodium 146 H (137-145) mmol/L Chloride 110 H (98-107) mmol/L Carbon Dioxide 31 H (22-30) mmol/L BUN 19 H (7-17) mg/dL Glucose 60 L (74-99) mg/dL Calcium 7.5 L (8.4-10.2) mg/dL Microbiology - Last 24 Hours (Table) 10/15/18 09:20 Gram Stain - Final Knee - Left Wound Culture - Final Pseudomonas aeruginosa Methicillin resist S. aureus Assessment and Plan Assessment: Impression: 1 acute and recurrent GI bleed, likely of an upper GI source. Unable to perform a push enteroscopy yesterday due to hypoxemia with light sedation. 2 anemia, secondary to blood loss and the patient got transferred as total of 4 units of packed RBC so far this admission. Current hemoglobin 7.8. 3 coronary artery disease with recent bypass surgery, the patient underwent an off-pump three-vessel bypass surgery on 08/23/2018 4 right-sided pleural effusion, likely post surgical in nature ultrasound of the chest reveals a 13 cm pocket. Plan is for thoracentesis today. 5 atrial fibrillation the rate is controlled and the patient is on long-term and to coagulation with Eliquis 6 history of coronary disease and previous [place] of a non-STEMI type 7 hypertension 8 hyperlipidemia 9 uterine cancer 10 medical debility seconds above-mentioned comorbidities. The patient also has bilateral knee replacement and ankle surgery on the right and she has difficulty with morbidity and gait Plan: The patient was seen and evaluated by Dr. Banerjee. She does have continued moderate right-sided pleural effusion. Ultrasound reveals a 13 cm pocket. The plan is for thoracentesis today. We will continue to follow and make further recommendations based on her clinical status. I, the cosigning physician, performed a history & physical examination of the patient. Lungs sounds with basilar crackles right greater than left. Maintaining good O2 saturations in the 90s on 2 L/m per nasal cannula. I discussed the assessment and plan of care with my nurse practitioner, Jessica Trevino. I attest to the above note as dictated by her.
--- NOTE | 2018-10-20 11:31 | XR ---
EXAMINATION TYPE: XR chest 1V portable DATE OF EXAM: 10/20/2018 HISTORY: S/P right thoracentesis. REFERENCE: Previous study dated 10/18/2018. FINDINGS: There has been a midline sternotomy. The heart is enlarged. There are bilateral effusions. That on the right has decreased since the previous examination no pneumothorax is evident. IMPRESSION: I DO NOT SEE A POSTTHORACENTESIS PNEUMOTHORAX.
--- NOTE | 2018-10-20 12:05 | PCN ---
PROCEDURE NOTE Indication Pleural effusion. PREOP DIAGNOSIS: Right-sided pleural effusion. POSTOP DIAGNOSIS: Right sided pleural effusion. A time-out was completed verifying correct patient, procedure, site, positioning , and implant (s) or special equipment if applicable. Ultrasound guidance was used and appropriate fluid pocket was identified and marked. Patient was positioned, prepped and draped in usual sterile fashion. Lidocaine was used to anesthetize the area. A Thoracentesis catheter was introduced into the pleural space and fluid was removed. Blood loss was none. A chest x-ray was ordered to evaluate for pneumothorax. Total Fluid Removed: 1.8 L Color of Fluid hemorrhagic bloody postsurgical pleural effusion. Fluid was sent for appropriate laboratory tests. Patient tolerated the procedure well and there were no complications. Chest x-ray shows no pneumothorax. MMODL / IJN: [id number] /
[2018-10-20] MEDS: IPRATROPIUM-ALBUTEROL 3 ML NEB INHALATION PRN ×3 (12:44→19:57)
[2018-10-20] MEDS ORDERED: FUROSEMIDE 10 MG/ML 4 ML VIAL IV ONE ×2 (12:45→21:00)
--- NOTE | 2018-10-20 13:12 | XR ---
EXAMINATION TYPE: XR chest 1V DATE OF EXAM: 10/20/2018 HISTORY: increasing sob. REFERENCE: Previous study dated 10/20/2018. FINDINGS: Basilic PICC line is in place. There has been a previous midline sternotomy. The bibasilar airspace disease. There are bilateral effusions, larger on the right. This appears to h ave worsened since previous study. Heart size. There is mild vascular congestion. IMPRESSION: 1. WORSENING RIGHT-SIDED EFFUSION. 2. BIBASILAR AIRSPACE DISEASE, WORSE ON THE RIGHT THAN THE LEFT.
[2018-10-20 13:20] LABS: Anisocytosis Moderate; Basophils # (A) 0.1 k/uL (0-0.2); Basophils % (A) 0 %; Eosinophils # (A) 0.1 k/uL (0-0.7); Eosinophils % (A) 1 %; HCT 33.3 % (34.0-46.0); HGB 10.3 gm/dL (11.4-16.0); Hypochromasia Marked; Lymphocytes # (A) 1.4 k/uL (1.0-4.8); Lymphocytes % (A) 10 %; MCH 29.7 pg (25.0-35.0); Macrocytosis Slight; Mean Platelet Volume 10.4; Monocytes # (A) 0.3 k/uL (0-1.0); Monocytes % (A) 2 %; Neutrophils # (A) 12.3 k/uL (1.3-7.7); Neutrophils % (A) 86 %; Platelet Count 192 k/uL (150-450); Poikilocytosis Moderate; RBC 3.47 m/uL (3.80-5.40); RDW 22.1 % (11.5-15.5); WBC 14.3 k/uL (3.8-10.6)
[2018-10-20 14:08] LABS: Appearance,BF Bloody; Nucleated Cells, Body Fluid 40 /uL; RBC, Body Fluid 134500 /uL
[2018-10-20 14:11] LABS: Mononuclear WBC,Body Fluid 78 %; Polynuclear WBC,Body Fluid 22 %; Total Cells Counted,Body Fluid 100
[2018-10-20] MEDS ORDERED: FUROSEMIDE 10 MG/ML 4 ML VIAL IV STA (14:40)
[2018-10-20] MEDS ORDERED: Potassium Replacement Protocol 1 EACH MISC MISCELLANE PRN (17:48)
[2018-10-20] MEDS: POTASSIUM CHLORIDE ER 20 MEQ TAB.ER PO SCH (17:56)
[2018-10-20] MEDS: POTASSIUM CHLORIDE 10 MEQ in WATER FOR INJECTION 1 100ML.BAG IVPB SCH ×2 (18:00→19:19)
--- NOTE | 2018-10-20 21:30 | P.PN ---
Subjective Progress Note Date: 10/19/18 Principal diagnosis: Acute GI bleed in the proximal small bowel Acute blood loss anemia This is a pleasant 67 years old female with past medical history of atrial fibrillation, coronary artery disease, recent GI bleed and 10/2018 , COPD, hyperlipidemia, hypertension, osteoarthritis, uterine Cancer.Presents with signs symptoms of GI bleed. Patient currently is in the critical care unit, Patient had negative EGD and capsule endoscopy she had recent colonoscopy as well. Source of bleeding is well known however it could be small bowel, aggravated by being on anticoagulation. Patient got several units of blood transfusion for her anemia. Also she is on Zosyn antibiotic for wound infection lower extremity with pseudomonas. She is awake, known in pain or distress. Diet is advanced. 10/19/2018 Patient is currently in the intensive care unit. Denied any complaints of chest pain or worsening shortness of breath. Current hemoglobin is 8.1. Patient underwent total of 4 units of PRBC transfusion since admission. Gastroenterology is following. Patient remains on antibiotics in the form of Zosyn with wound cultures showing pseudomonas and MRSA. WBC 9.5. Creatinine 1.1. No fever no chills. Patient did have dark-colored stools. Current medications reviewed. Objective - Vital Signs Vital signs: Vital Signs Temp 97.4 F L 10/19/18 16:00 Pulse 74 10/19/18 16:00 Resp 27 H 10/19/18 16:00 BP 108/24 10/19/18 16:00 Pulse Ox 93 L 10/19/18 16:00 Intake & Output 10/19/18 10/19/18 10/20/18 06:59 18:59 06:59 Intake Total 160 465 Output Total 650 325 Balance -490 140 Weight 115 kg Intake: IV 160 360 Piperacillin-Tazobactam 3 200 .375 gm In Sodium Chloride 0.9% 100 ml @ 25 mls/hr IVPB Q8HR [facility] Rx# :[id number] Sodium Chloride 0.9% 500 160 160 ml 500 ml @ 10 mls/hr IV .Q24H [facility] Rx#:[id number] Oral 105 Output: Urine 650 325 Other: Voiding Method Indwelling Catheter Indwelling Catheter - Exam GENERAL: The patient is alert and oriented x3, not in any acute distress. Obese HEENT: Pupils are round and equally reacting to light. EOMI. No scleral icterus. No conjunctival pallor. Normocephalic, atraumatic. No pharyngeal erythema. No thyromegaly. CARDIOVASCULAR: S1 and S2 present. No murmurs, rubs, or gallops. PULMONARY: Chest is clear to auscultation, no wheezing or crackles. ABDOMEN: Soft, nontender, nondistended, normoactive bowel sounds. No palpable organomegaly. MUSCULOSKELETAL: No joint swelling or deformity. -EXTREMITIES: No cyanosis, clubbing, or pedal edema. The left leg wound on the medial upper side NEUROLOGICAL: Gross neurological examination did not reveal any focal deficits. SKIN: No rashes. - Labs CBC & Chem 7: 10/20/18 13:10 10/20/18 15:15 Labs: Abnormal Lab Results - Last 24 Hours (Table) 10/19/18 10/19/18 Range/Units 05:10 05:10 RBC 2.77 L (3.80-5.40) m/uL Hgb 8.1 L (11.4-16.0) gm/dL Hct 26.1 L (34.0-46.0) % RDW 22.3 H (11.5-15.5) % Plt Count 139 L (150-450) k/uL Neutrophils # 8.2 H (1.3-7.7) k/uL Lymphocytes # 0.8 L (1.0-4.8) k/uL Chloride 110 H (98-107) mmol/L Carbon Dioxide 33 H (22-30) mmol/L BUN 23 H (7-17) mg/dL Creatinine 1.11 H (0.52-1.04) mg/dL Calcium 7.9 L (8.4-10.2) mg/dL Microbiology - Last 24 Hours (Table) 10/15/18 09:20 Gram Stain - Final Knee - Left Wound Culture - Final Pseudomonas aeruginosa Methicillin resist S. aureus Assessment and Plan Assessment: Acute GI bleed,. Status post EGD showed no evidence of bleeding. Capsule endoscopy showed bleeding site at proximal small bowel. Acute blood loss anemia, status post multiple blood transfusions left medial knee wound infection with Pseudomonas and MRSA. , site of vein g rafting for coronary bypass grafting. Continue with antibiotics and wound care. History of atrial fibrillation, off anticoagulation now for her GI bleed History of coronary artery disease Hypertension Hyperlipidemia History of COPD, no acute exacerbation History of uterine cancer Plan: This is a pleasant 67 years old female presents with gently. Continue with Protonix. She is currently nothing by mouth Lasix but she is off anticoagulation or aspirin. Patient is being followed by critical care team, gastroenterology and infectious disease. Continue with antibiotics no cough Zosyn. .Labs and medication were reviewed.. Continue same treatment. Continue with symptomatic treatment. Monitor lytes and vitals. DVT and GI prophylaxis. Further recommendations of the clinical course of the patient. DVT prophylaxis: SCDs GI Prophylaxis: Protonix Prognosis is guarded Time with Patient: Greater than 30
[2018-10-20] MEDS: ATORVASTATIN 80 MG TAB PO SCH (21:32)
[2018-10-21] MEDS: PIPERACILLIN-TAZOBACTAM 3.375 GM in SODIUM CHLORIDE 0.9% 100 ML IVPB SCH ×3 (00:35→16:51)
[2018-10-21] MEDS: SODIUM CHLORIDE 0.9% 500 ML 500 ML IV SCH (00:35)
[2018-10-21] MEDS: POTASSIUM CHLORIDE 10 MEQ in WATER FOR INJECTION 1 100ML.BAG IVPB SCH ×2 (00:55→02:10)
[2018-10-21 06:02] LABS: Anisocytosis Moderate; Basophils % (A) 0 %; Eosinophils # (A) 0.1 k/uL (0-0.7); Eosinophils % (A) 0 %; HCT 26.8 % (34.0-46.0); Hypochromasia Marked; Lymphocytes # (A) 0.8 k/uL (1.0-4.8); Lymphocytes % (A) 7 %; MCH 29.6 pg (25.0-35.0); MCHC 31.7 g/dL (31.0-37.0); MCV 93.2 fL (80.0-100.0); Macrocytosis Slight; Monocytes # (A) 0.3 k/uL (0-1.0); Monocytes % (A) 3 %; Neutrophils % (A) 90 %; Platelet Count 140 k/uL (150-450); Poikilocytosis Moderate; RBC 2.88 m/uL (3.80-5.40); WBC 12.3 k/uL (3.8-10.6)
[2018-10-21 06:12] LABS: HGB 8.5 gm/dL (11.4-16.0)
[2018-10-21 06:19] LABS: Calcium 7.3 mg/dL (8.4-10.2); Magnesium 2.1 mg/dL (1.6-2.3); Phosphorus 2.7 mg/dL (2.5-4.5); Potassium 3.6 mmol/L (3.5-5.1)
[2018-10-21] MEDS ORDERED: POTASSIUM CHLORIDE ER 20 MEQ TAB.ER PO SCH (07:00)
[2018-10-21] MEDS: IPRATROPIUM-ALBUTEROL 3 ML NEB INHALATION PRN ×2 (07:07→10:47)
[2018-10-21 08:18] LABS: Glucose,Whole Blood 73 mg/dL (75-99)
--- NOTE | 2018-10-21 08:42 | XR ---
EXAMINATION TYPE: XR chest 1V portable DATE OF EXAM: 10/21/2018 CLINICAL HISTORY: Difficulty breathing and pleural effusion progress study. Right-sided thoracentesi s yesterday. TECHNIQUE: Single AP portable upright view of the chest is obtained. COMPARISON: Chest x-ray from one day earlier and older studies. FINDINGS: Stable right-sided PICC line. Overlying sternal wires and mediastinal clips as well as sup erior left cardiac closure device are all redemonstrated. Cardiac silhouette size is stable and enlar ged with atherosclerotic thoracic aorta. Central opacities bilaterally remain present with persistent more prominent right lower lung opacity. Osseous structures are intact. IMPRESSION: Overall stable findings from one day earlier, cardiomegaly with moderate bilateral centr al alveolar edema and/or infiltrates with persistent small to moderate-sized right pleural effusion a nd associated bibasilar atelectasis and/or infiltrate all redemonstrated.
[2018-10-21] MEDS: FERROUS SULFATE 325 MG TAB PO SCH ×2 (09:05→16:51)
[2018-10-21] MEDS: FUROSEMIDE 20 MG TAB PO SCH ×2 (09:12→16:51)
[2018-10-21] MEDS: CINACALCET 30 MG TAB PO SCH ×2 (09:12→16:51)
[2018-10-21] MEDS: METOPROLOL TARTRATE 12.5 MG TAB PO SCH ×2 (09:13→16:51)
[2018-10-21] MEDS: PANTOPRAZOLE 40 MG TABLET PO SCH ×2 (09:13→20:32)
[2018-10-21] MEDS: SODIUM BICARBONATE TAB 650 MG TAB PO SCH ×2 (09:13→16:51)
[2018-10-21 09:44] VITALS: BMI 50.8
--- NOTE | 2018-10-21 09:52 | P.PN ---
Progress Note - Text Progress Note Date: 10/20/18 REASON FOR FOLLOWUP: 1. Left medial knee wound, postsurgical. 2. Right lower extremity venostasis ulcer. 3. Stage II sacral pressure ulcer no cellulitis INTERVAL HISTORY: The patient remains to be afebrile. The patient has been breathing comfortably. She denies having any chest pain or any cough. No abdominal pain. No pain to the left medial knee wound area or to the right leg wound. PHYSICAL EXAMINATION: Blood pressure 160/60 with a pulse of 65, temperature 97.8, she is 99% on 3 L nasal cannula. General description is an elderly female, lying in bed in no distress. RESPIRATORY SYSTEM: Unlabored breathing, clear to auscultation anteriorly. HEART: S1, S2. Regular rate and rhythm. ABDOMEN: Soft, no tenderness. Left medial knee wound with slight drainage with no redness or any foul smelling. Stage II sacral wound no cellulitis LABS: wound culture with Pseudomonas aeruginosa and MRSA. DIAGNOSTIC IMPRESSION AND PLAN: 1. Patient with left medial knee wound, postsurgical. A vein graft site is currently with no evidence of any cellulitis, positive culture more likely representing colonization and Local care to continue with Medihoney. 2. Right anterior leg venostasis ulcer. Local wound care with Medihoney followed by Craig wrap for compression. 3. stage II sacral pressure ulcer no cellulitis present on admission local wound care Aquacel silver dressing Continue supportive care.
--- NOTE | 2018-10-21 13:13 | P.PN ---
Subjective Progress Note Date: 10/21/18 Principal diagnosis: acute and recurrent GI bleeding exact source is not clear. 77-year-old morbidly obese female patient with known history of coronary artery disease with previous bypass surgery also known history of chronic atrial fibrillation maintained on Eliquis on outpatient basis. The patient is known to have hypertension, chronic anemia and history of uterine cancer. The patient is known to me during her previous hospitalization as I took care of this patient's postoperative care following her cardiac surgery. Note that this is another hospitalization for this patient for the same ongoing GI bleed. The patient has a few hospitalizations for anemia and suspected GI bleed. The patient underwent an EGD on 09/24/2018 and there was no evidence of any acute bleeding or pathology. The patient also underwent a small bowel capsule endoscopy that showed no evidence of any acute or active bleeding. Subsequently the patient underwent a colonoscopy that was done on 10/05/2018 and this was done for symptomatically anemia of hemoglobin of 5.5 and it showed no evidence of any acute bleed and there was a normal-appearing colon and rectum and cecum and there was no evidence of colitis or colorectal neoplasia. The patient was restarted back on anticoagulation the patient was discharged home to be readmitted yesterday with painless gross burgundy stool and bowel movements were no other of 3 times since midnight. Hemoglobin dropped to 6.2 and MCV of 94. Platelet count was at 227. The patient received a total of 1 unit of packed RBC for hemoglobin of 6.8. She is hemodynamically stable. Chest x-ray showing a moderate-sized right-sided pleural effusion that was present on previous chest x-ray. The patient also has a left lower extremity open wound and previous cultures have shown Citrobacter and pseudomonas aeruginosa. Dialysis around 4 x 1 cm in size in the bases covered with purulent material. Reevaluated today on 10/21/2018, seen on follow-up in the intensive care unit, patient is feeling much better, breathing a lot easier, she underwent right sided thoracentesis yesterday, 1.8 L of fluid were drained, results of which are pending. Patient remains on 2 L nasal cannula, she is afebrile, in no distress, she is status post 4 units of packed RBCs transfused since this admission. Her present hemoglobin is 8.5. Patient remains on antibiotics in the form of Zosyn, all her labs were reviewed, remains on Protonix, GI is following, and still planning to perform a push enteroscopy. Objective - Vital Signs Vital signs: Vital Signs Temp 97.6 F 10/21/18 12:00 Pulse 75 10/21/18 12:00 Resp 22 10/21/18 12:00 BP 107/58 10/21/18 12:00 Pulse Ox 97 10/21/18 12:00 Intake & Output 10/20/18 10/21/18 10/21/18 18:59 06:59 18:59 Intake Total 1060 530.0 140 Output Total 1435 1470 510 Balance -375 -940.0 -370 Weight 118.1 kg 118.1 kg Intake: IV 860 470.0 140 Magnesium Sulfate-D5w Pmx 100 1 gm In Dextrose/Water 1 100ml.bag @ 100 mls/hr IVPB Q1H [facility] Rx#: [id number] Piperacillin-Tazobactam 3 200 70.0 100 .375 gm In Sodium Chloride 0.9% 100 ml @ 25 mls/hr IVPB Q8HR [facility] Rx# :[id number] Potassium Chloride 10 meq 100 300 In Water For Injection 1 100ml.bag @ 100 mls/hr IVPB Q1H [facility] Rx#: [id number] Potassium Chloride 20 meq 100 In Water For Injection 1 100ml.bag @ 50 mls/hr IVPB Q2H [facility] Rx#: [id number] Sodium Chloride 0.9% 500 360 100 40 ml 500 ml @ 20 mls/hr IV .Q24H [facility] Rx#:[id number] Oral 200 60 Output: Urine 1435 1470 510 Other: Voiding Method Indwelling Catheter Indwelling Catheter Indwelling Catheter - Exam Physical Exam: Revealed a 67-year-old female in no distress, on 2 L nasal cannula. Head: Atraumatic, normocephalic. HEENT:[Neck is supple.] [No neck masses.] [No thyromegaly.] [No JVD.] Chest: [diminished breath sounds and dullness at the right base, no crackles or rhonchi or wheezes. Cardiac Exam: [irregular irregular rhythm.Normal S1 and S2, no S3 gallop, no murmur.] Abdomen: [Soft, nontender, no megaly, no rebound, no guarding, normal bowel sounds.] Extremities: [No clubbing, 1+ bipedal edema, no cyanosis.] Neurological Exam: [No focal neurologic deficit.]alert oriented 3. Skin: Stage II ulceration in the left lower extremity, being addressed by admitting physician. - Labs CBC & Chem 7: 10/21/18 06:00 10/21/18 06:00 Labs: Abnormal Lab Results - Last 24 Hours (Table) 10/20/18 10/21/18 10/21/18 Range/Units 13:10 06:00 06:00 WBC 14.3 H 12.3 H (3.8-10.6) k/uL RBC 3.47 L 2.88 L (3.80-5.40) m/uL Hgb 10.3 L 8.5 L D (11.4-16.0) gm/dL Hct 33.3 L 26.8 L (34.0-46.0) % RDW 22.1 H 22.0 H (11.5-15.5) % Plt Count 140 L (150-450) k/uL Neutrophils # 12.3 H 11.0 H (1.3-7.7) k/uL Lymphocytes # 0.8 L (1.0-4.8) k/uL Carbon Dioxide 33 H (22-30) mmol/L Creatinine 1.08 H (0.52-1.04) mg/dL Glucose 63 L (74-99) mg/dL POC Glucose (mg/dL) (75-99) mg/dL Calcium 7.3 L (8.4-10.2) mg/dL 10/21/18 Range/Units 08:16 WBC (3.8-10.6) k/uL RBC (3.80-5.40) m/uL Hgb (11.4-16.0) gm/dL Hct (34.0-46.0) % RDW (11.5-15.5) % Plt Count (150-450) k/uL Neutrophils # (1.3-7.7) k/uL Lymphocytes # (1.0-4.8) k/uL Carbon Dioxide (22-30) mmol/L Creatinine (0.52-1.04) mg/dL Glucose (74-99) mg/dL POC Glucose (mg/dL) 73 L (75-99) mg/dL Calcium (8.4-10.2) mg/dL Microbiology - Last 24 Hours (Table) 10/20/18 11:00 Gram Stain - Preliminary Pleural Fluid Body Fluid Culture - Preliminary 10/20/18 11:00 Anaerobic Culture - Preliminary Pleural Fluid Assessment and Plan Assessment: 1 acute and recurrent GI bleed, likely of an upper GI source. this is being addressed by GI on the case. May undergo push enteroscopy. 2 anemia, secondary to blood loss and the patient got transferred as total of 4 units of packed RBC so far this admission. 3 coronary artery disease with recent bypass surgery, the patient underwent an off-pump three-vessel bypass surgery on 08/23/2018 4 right-sided pleural effusion, status post thoracentesis, labs are pending on the pleural effusion. 5 atrial fibrillation the rate is controlled and the patient is on long-term and to coagulation with Eliquis 6 history of coronary disease and previous MN of a non-STEMI type 7 hypertension 8 hyperlipidemia 9 uterine cancer 10 medical debility , Multifactorial. Recommendation: Continue present supportive care measures, continue antibiotics, continue to investigate the source of her recurrent upper GI bleeding, this is being addressed by gastroenterology on the case, patient will remain in the ICU in the meantime. Prognosis seems to be guarded. Time with Patient: Less than 30
[2018-10-21] MEDS: POTASSIUM CHLORIDE ER 20 MEQ TAB.ER PO SCH (16:51)
[2018-10-21] MEDS: ATORVASTATIN 80 MG TAB PO SCH (20:32)
--- NOTE | 2018-10-21 22:59 | P.PN ---
Progress Note - Text Progress Note Date: 10/21/18 REASON FOR FOLLOWUP: 1. Left medial knee wound, postsurgical. 2. Right lower extremity venostasis ulcer. 3. Stage II sacral pressure ulcer no cellulitis INTERVAL HISTORY: The patient denies any fever or chills. The patient has been breathing comfortably. She denies having any chest pain or any cough. No abdominal pain. No pain to the left medial knee wound area or to the right leg wound. PHYSICAL EXAMINATION: Blood pressure 120/60 with a pulse of 71, temperature 97.8, she is 96% on 3 L nasal cannula. General description is an elderly female, lying in bed in no distress. RESPIRATORY SYSTEM: Unlabored breathing, clear to auscultation anteriorly. HEART: S1, S2. Regular rate and rhythm. ABDOMEN: Soft, no tenderness. Left medial knee wound dressed with slight drainage on the dressing , no foul smelling. Stage II sacral wound no cellulitis LABS: wound culture with Pseudomonas aeruginosa and MRSA. DIAGNOSTIC IMPRESSION AND PLAN: 1. Patient with left medial knee wound, postsurgical. A vein graft site, currently with no evidence of any cellulitis, positive culture more likely representing colonization and Local care to continue with Medihoney. No need for systemic antibiotic therapy 2. Right anterior leg venostasis ulcer. Local wound care with Medihoney followed by Craig wrap for compression. 3. stage II sacral pressure ulcer no cellulitis present on admission local wound care Aquacel silver dressing Continue supportive care.
--- NOTE | 2018-10-21 23:50 | P.PN ---
Subjective Progress Note Date: 10/20/18 Principal diagnosis: Acute GI bleed in the proximal small bowel Acute blood loss anemia This is a pleasant 67 years old female with past medical history of atrial fibrillation, coronary artery disease, recent GI bleed and 10/2018 , COPD, hyperlipidemia, hypertension, osteoarthritis, uterine Cancer.Presents with signs symptoms of GI bleed. Patient currently is in the critical care unit, Patient had negative EGD and capsule endoscopy she had recent colonoscopy as well. Source of bleeding is well known however it could be small bowel, aggravated by being on anticoagulation. Patient got several units of blood transfusion for her anemia. Also she is on Zosyn antibiotic for wound infection lower extremity with pseudomonas. She is awake, known in pain or distress. Diet is advanced. 10/19/2018 Patient is currently in the intensive care unit. Denied any complaints of chest pain or worsening shortness of breath. Current hemoglobin is 8.1. Patient underwent total of 4 units of PRBC transfusion since admission. Gastroenterology is following. Patient remains on antibiotics in the form of Zosyn with wound cultures showing pseudomonas and MRSA. WBC 9.5. Creatinine 1.1. No fever no chills. Patient did have dark-colored stools. 10/20/2018 Patient is awake alert and oriented. Saturating well on 2 L nausea cannula. Hemoglobin is 7.8 today. Patient is getting blood transfusion. Otherwise patient had right-sided thoracentesis done today. Patient has been afebrile. Gastroenterology and pulmonary is following. ID is on board. Continue with the wound care and supportive care. Patient is being continued on Protonix and IV hydration. Current medications reviewed. Objective - Vital Signs Vital signs: Vital Signs Temp 98.1 F 10/20/18 20:30 Pulse 65 10/20/18 21:00 Resp 16 10/20/18 21:00 BP 93/57 10/20/18 21:00 Pulse Ox 99 10/20/18 21:00 Intake & Output 10/20/18 10/20/18 10/21/18 06:59 18:59 06:59 Intake Total 80 1060 120 Output Total 400 1435 300 Balance -320 -375 -180 Weight 120.4 kg Intake: IV 80 860 120 Magnesium Sulfate-D5w Pmx 100 1 gm In Dextrose/Water 1 100ml.bag @ 100 mls/hr IVPB Q1H [facility] Rx#: [id number] Piperacillin-Tazobactam 3 200 .375 gm In Sodium Chloride 0.9% 100 ml @ 25 mls/hr IVPB Q8HR [facility] Rx# :[id number] Potassium Chloride 10 meq 100 100 In Water For Injection 1 100ml.bag @ 100 mls/hr IVPB Q1H [facility] Rx#: [id number] Potassium Chloride 20 meq 100 In Water For Injection 1 100ml.bag @ 50 mls/hr IVPB Q2H [facility] Rx#: [id number] Sodium Chloride 0.9% 500 80 360 20 ml 500 ml @ 20 mls/hr IV .Q24H [facility] Rx#:[id number] Oral 200 Output: Urine 400 1435 300 Other: Voiding Method Indwelling Catheter Indwelling Catheter - Exam GENERAL: The patient is alert and oriented x3, not in any acute distress. Obese HEENT: Pupils are round and equally reacting to light. EOMI. No scleral icterus. No conjunctival pallor. Normocephalic, atraumatic. No pharyngeal erythema. No thyromegaly. CARDIOVASCULAR: S1 and S2 present. No murmurs, rubs, or gallops. PULMONARY: Chest is clear to auscultation, no wheezing or crackles. ABDOMEN: Soft, nontender, nondistended, normoactive bowel sounds. No palpable organomegaly. MUSCULOSKELETAL: No joint swelling or deformity. -EXTREMITIES: No cyanosis, clubbing, or pedal edema. The left leg wound on the medial upper side NEUROLOGICAL: Gross neurological examination did not reveal any focal deficits. SKIN: No rashes. - Labs CBC & Chem 7: 10/21/18 06:00 10/21/18 06:00 Labs: Abnormal Lab Results - Last 24 Hours (Table) 10/20/18 10/20/18 10/20/18 Range/Units 05:06 05:06 13:10 WBC 14.3 H (3.8-10.6) k/uL RBC 2.73 L 3.47 L (3.80-5.40) m/uL Hgb 7.8 L 10.3 L (11.4-16.0) gm/dL Hct 25.9 L 33.3 L (34.0-46.0) % MCHC 30.0 L (31.0-37.0) g/dL RDW 20.9 H 22.1 H (11.5-15.5) % Neutrophils # 8.4 H 12.3 H (1.3-7.7) k/uL Lymphocytes # 0.8 L (1.0-4.8) k/uL Sodium 146 H (137-145) mmol/L Chloride 110 H (98-107) mmol/L Carbon Dioxide 31 H (22-30) mmol/L BUN 19 H (7-17) mg/dL Glucose 60 L (74-99) mg/dL Calcium 7.5 L (8.4-10.2) mg/dL Microbiology - Last 24 Hours (Table) 10/20/18 11:00 Anaerobic Culture - Preliminary Pleural Fluid 10/20/18 11:00 Body Fluid Culture - Preliminary Pleural Fluid Assessment and Plan Assessment: Acute GI bleed,. Status post EGD showed no evidence of bleeding. Capsule endo scopy showed bleeding site at proximal small bowel. Acute blood loss anemia, status post multiple blood transfusions left medial knee wound infection with Pseudomonas and MRSA. , site of vein grafting for coronary bypass grafting. Continue with antibiotics and wound care. Paroxysmal atrial fibrillation, off anticoagulation now for her GI bleed History of coronary artery disease Hypertension Hyperlipidemia History of COPD, no acute exacerbation History of uterine cancer Plan: This is a pleasant 67 years old female presents with gently. Continue with Protonix. She is currently nothing by mouth Lasix but she is off anticoagulation or aspirin. Patient is being followed by critical care team, gastroenterology and infectious disease. Continue with antibiotics in the form of Zosyn. .Labs and medication were reviewed.. Continue same treatment. Continue with symptomatic treatment. Monitor lytes and vitals. DVT and GI prophylaxis. Further recommendations of the clinical course of the patient. DVT prophylaxis: SCDs GI Prophylaxis: Protonix Prognosis is guarded Time with Patient: Greater than 30
--- NOTE | 2018-10-21 23:52 | P.PN ---
Subjective Progress Note Date: 10/21/18 Principal diagnosis: Acute GI bleed in the proximal small bowel Acute blood loss anemia This is a pleasant 67 years old female with past medical history of atrial fibrillation, coronary artery disease, recent GI bleed and 10/2018 , COPD, hyperlipidemia, hypertension, osteoarthritis, uterine Cancer.Presents with signs symptoms of GI bleed. Patient currently is in the critical care unit, Patient had negative EGD and capsule endoscopy she had recent colonoscopy as well. Source of bleeding is well known however it could be small bowel, aggravated by being on anticoagulation. Patient got several units of blood transfusion for her anemia. Also she is on Zosyn antibiotic for wound infection lower extremity with pseudomonas. She is awake, known in pain or distress. Diet is advanced. 10/19/2018 Patient is currently in the intensive care unit. Denied any complaints of chest pain or worsening shortness of breath. Current hemoglobin is 8.1. Patient underwent total of 4 units of PRBC transfusion since admission. Gastroenterology is following. Patient remains on antibiotics in the form of Zosyn with wound cultures showing pseudomonas and MRSA. WBC 9.5. Creatinine 1.1. No fever no chills. Patient did have dark-colored stools. 10/20/2018 Patient is awake alert and oriented. Saturating well on 2 L nausea cannula. Hemoglobin is 7.8 today. Patient is getting blood transfusion. Otherwise patient had right-sided thoracentesis done today. Patient has been afebrile. Gastroenterology and pulmonary is following. ID is on board. Continue with the wound care and supportive care. Patient is being continued on Protonix and IV hydration. 10/21/2018 Patient is able to sit in the chair comfortably today. Breathing status is improved after thoracentesis and 1.8 L fluid removal. Fluid analysis is pending at this time. Otherwise saturating well on 2 L nausea cannula. Hemoglobin is 8.5 today. Patient remains on antibiotics of Zosyn. Continue with Protonix and GI is planning to perform a push enteroscopy. Otherwise no compressive chest pain. No nausea vomiting or diarrhea. Patient had dark-colored bowel movement yesterday. Current medications reviewed. Objective - Vital Signs Vital signs: Vital Signs Temp 97.5 F L 10/21/18 20:00 Pulse 62 10/21/18 22:00 Resp 21 10/21/18 22:00 BP 126/52 10/21/18 22:00 Pulse Ox 95 06/17/19 22:00 Intake & Output 10/21/18 10/21/18 10/22/18 06:59 18:59 06:59 Intake Total 530.0 340 210 Output Total 1470 1110 305 Balance -940.0 -770 -95 Weight 118.1 kg 118.1 kg Intake: IV 470.0 340 60 Piperacillin-Tazobactam 3 70.0 200 .375 gm In Sodium Chloride 0.9% 100 ml @ 25 mls/hr IVPB Q8HR [facility] Rx# :[id number] Potassium Chloride 10 meq 300 In Water For Injection 1 100ml.bag @ 100 mls/hr IVPB Q1H [facility] Rx#: [id number] Sodium Chloride 0.9% 500 100 140 60 ml 500 ml @ 20 mls/hr IV .Q24H [facility] Rx#:[id number] Oral 60 Other 150 Output: Urine 1470 1110 305 Other: Voiding Method Indwelling Catheter Indwelling Catheter Indwelling Catheter - Exam GENERAL: The patient is alert and oriented x3, not in any acute distress. Obese HEENT: Pupils are round and equally reacting to light. EOMI. No scleral icterus. No conjunctival pallor. Normocephalic, atraumatic. No pharyngeal erythema. No thyromegaly. CARDIOVASCULAR: S1 and S2 present. No murmurs, rubs, or gallops. PULMONARY: bibasilar diminished air entry and basilar crackles.. no wheezing. ABDOMEN: Soft, nontender, nondistended, normoactive bowel sounds. No palpable organomegaly. MUSCULOSKELETAL: No joint swelling or deformity. -EXTREMITIES: No cyanosis, clubbing, or pedal edema. The left leg wound on the medial upper side NEUROLOGICAL: Gross neurological examination did not reveal any focal deficits. SKIN: No rashes. - Labs CBC & Chem 7: 10/21/18 06:00 10/21/18 06:00 Labs: Abnormal Lab Results - Last 24 Hours (Table) 10/21/18 10/21/18 10/21/18 Range/Units 06:00 06:00 08:16 WBC 12.3 H (3.8-10.6) k/uL RBC 2.88 L (3.80-5.40) m/uL Hgb 8.5 L D (11.4-16.0) gm/dL Hct 26.8 L (34.0-46.0) % RDW 22.0 H (11.5-15.5) % Plt Count 140 L (150-450) k/uL Neutrophils # 11.0 H (1.3-7.7) k/uL Lymphocytes # 0.8 L (1.0-4.8) k/uL Carbon Dioxide 33 H (22-30) mmol/L Creatinine 1.08 H (0.52-1.04) mg/dL Glucose 63 L (74-99) mg/dL POC Glucose (mg/dL) 73 L (75-99) mg/dL Calcium 7.3 L (8.4-10.2) mg/dL Microbiology - Last 24 Hours (Table) 10/20/18 11:00 Gram Stain - Preliminary Pleural Fluid Body Fluid Culture - Preliminary Assessment and Plan Assessment: Acute GI bleed,. Status post EGD showed no evidence of bleeding. Capsule endoscopy showed bleeding site at proximal small bowel. Acute blood loss anemia, status post multiple blood transfusions left medial knee wound infection with Pseudomonas and MRSA. , site of vein grafting for coronary bypass grafting. Continue with antibiotics and wound care. Paroxysmal atrial fibrillation, off anticoagulation now for her GI bleed Right-sided pleural effusion. Status post thoracentesis on 10/20/2018. History of coronary artery disease Hypertension Hyperlipidemia History of COPD, no acute exacerbation History of uterine cancer Plan: This is a pleasant 67 years old female presents with gently. Continue with Protonix. She is currently nothing by mouth Lasix but she is off anticoagulation or aspirin. Patient is being followed by critical care team, gastroenterology and infectious disease. Continue with antibiotics in the form of Zosyn. .Labs and medication were reviewed.. Continue same treatment. Continue with symptomatic treatment. Monitor lytes and vitals. DVT and GI prophylaxis. Further recommendations of the clinical course of the patient. DVT prophylaxis: SCDs GI Prophylaxis: Protonix Prognosis is guarded Time with Patient: Greater than 30
[2018-10-22] MEDS: SODIUM CHLORIDE 0.9% 500 ML 500 ML IV SCH (03:23)
[2018-10-22 05:43] LABS: Calcium 7.7 mg/dL (8.4-10.2); Potassium 3.3 mmol/L (3.5-5.1)
[2018-10-22 05:47] LABS: Anisocytosis Moderate; Basophils % (A) 0 %; Eosinophils # (A) 0.1 k/uL (0-0.7); Eosinophils % (A) 1 %; HGB 8.9 gm/dL (11.4-16.0); Hypochromasia Marked; Lymphocytes # (A) 1.2 k/uL (1.0-4.8); Lymphocytes % (A) 9 %; MCH 29.5 pg (25.0-35.0); MCHC 30.8 g/dL (31.0-37.0); MCV 95.8 fL (80.0-100.0); Macrocytosis Slight; Mean Platelet Volume 10.6; Monocytes # (A) 0.3 k/uL (0-1.0); Monocytes % (A) 3 %; Neutrophils # (A) 11.3 k/uL (1.3-7.7); Neutrophils % (A) 87 %; Platelet Count 177 k/uL (150-450); Poikilocytosis Moderate; RBC 3.03 m/uL (3.80-5.40); RDW 20.9 % (11.5-15.5)
[2018-10-22] MEDS: POTASSIUM CHLORIDE 20 MEQ in WATER FOR INJECTION 1 100ML.BAG IVPB SCH ×2 (05:52→07:59)
[2018-10-22] MEDS: FERROUS SULFATE 325 MG TAB PO SCH ×2 (07:03→16:36)
[2018-10-22] MEDS: FUROSEMIDE 20 MG TAB PO SCH (07:59)
[2018-10-22] MEDS: SODIUM BICARBONATE TAB 650 MG TAB PO SCH ×2 (07:59→16:36)
[2018-10-22] MEDS: METOPROLOL TARTRATE 12.5 MG TAB PO SCH ×2 (07:59→16:36)
[2018-10-22] MEDS: PANTOPRAZOLE 40 MG TABLET PO SCH ×2 (07:59→20:15)
[2018-10-22] MEDS: IPRATROPIUM-ALBUTEROL 3 ML NEB INHALATION PRN (07:59)
[2018-10-22] MEDS: CINACALCET 30 MG TAB PO SCH ×2 (08:00→16:36)
--- NOTE | 2018-10-22 08:14 | XR ---
EXAMINATION TYPE: XR chest 1V portable DATE OF EXAM: 10/22/2018 COMPARISON: Prior chest x-ray 10/21/2018 HISTORY: Shortness of breath TECHNIQUE: Single frontal view of the chest is obtained. FINDINGS: Right-sided PICC line is present, distal tip is in the right atrium. Patient is post media n sternotomy. Atrial appendage clipping change is noted. Pleural parenchymal changes show similar maria esther earance, heart is enlarged. Aorta is dense. No evident pneumothorax. IMPRESSION: Correlate for congestive heart failure, pneumonia not excluded. There may be right-sided pleural effusion.
--- NOTE | 2018-10-22 13:05 | P.PN ---
Subjective Progress Note Date: 10/22/18 Principal diagnosis: acute and recurrent GI bleeding exact source is not clear. 77-year-old morbidly obese female patient with known history of coronary artery disease with previous bypass surgery also known history of chronic atrial fibrillation maintained on Eliquis on outpatient basis. The patient is known to have hypertension, chronic anemia and history of uterine cancer. The patient is known to me during her previous hospitalization as I took care of this patient's postoperative care following her cardiac surgery. Note that this is another hospitalization for this patient for the same ongoing GI bleed. The patient has a few hospitalizations for anemia and suspected GI bleed. The patient underwent an EGD on 09/24/2018 and there was no evidence of any acute bleeding or pathology. The patient also underwent a small bowel capsule endoscopy that showed no evidence of any acute or active bleeding. Subsequently the patient underwent a colonoscopy that was done on 10/05/2018 and this was done for symptomatically anemia of hemoglobin of 5.5 and it showed no evidence of any acute bleed and there was a normal-appearing colon and rectum and cecum and there was no evidence of colitis or colorectal neoplasia. The patient was restarted back on anticoagulation the patient was discharged home to be readmitted yesterday with painless gross burgundy stool and bowel movements were no other of 3 times since midnight. Hemoglobin dropped to 6.2 and MCV of 94. Platelet count was at 227. The patient received a total of 1 unit of packed RBC for hemoglobin of 6.8. She is hemodynamically stable. Chest x-ray showing a moderate-sized right-sided pleural effusion that was present on previous chest x-ray. The patient also has a left lower extremity open wound and previous cultures have shown Citrobacter and pseudomonas aeruginosa. Dialysis around 4 x 1 cm in size in the bases covered with purulent material. Reevaluated today on 10/21/2018, seen on follow-up in the intensive care unit, patient is feeling much better, breathing a lot easier, she underwent right sided thoracentesis yesterday, 1.8 L of fluid were drained, results of which are pending. Patient remains on 2 L nasal cannula, she is afebrile, in no distress, she is status post 4 units of packed RBCs transfused since this admission. Her present hemoglobin is 8.5. Patient remains on antibiotics in the form of Zosyn, all her labs were reviewed, remains on Protonix, GI is following, and still planning to perform a push enteroscopy. Reevaluated today on 10/22/2018, patient is resting in bed, on nasal cannula couple of liters, in no distress, however her chest x-ray is showing worsening and possibly recurrence of her right-sided pleural effusion. Tried to retrieve the results of the LDH protein from the pleural effusion, however it is not available, and the lab was notified to make sure that these tests are done to determine if the fluid is exudative or transudative in nature. Patient had wound cultures showing pseudomonas and MRSA. Hemoglobin today is 8.9. Electrolytes are normal BUN is normal creatinine is normal. Considering the worsening chest x-ray appearance, I increased her Lasix to 40 mg by mouth twice a day instead of 20 twice a day. Objective - Vital Signs Vital signs: Vital Signs Temp 97 F L 10/22/18 12:00 Pulse 69 10/22/18 12:00 Resp 17 10/22/18 12:00 BP 124/52 10/22/18 12:00 Pulse Ox 99 10/22/18 12:00 Intake & Output 10/21/18 10/22/18 10/22/18 18:59 06:59 18:59 Intake Total 340 370 525 Output Total 1110 535 315 Balance -770 -165 210 Weight 118.1 kg Intake: IV 340 220 475 Piperacillin-Tazobactam 3 200 .375 gm In Sodium Chloride 0.9% 100 ml @ 25 mls/hr IVPB Q8HR [facility] Rx# :[id number] Sodium Chloride 0.9% 500 140 220 475 ml 500 ml @ 75 mls/hr IV .Q6H40M [facility] Rx#:[id number] Intake, IV Titration 50 Amount Potassium Chloride 20 meq 50 In Water For Injection 1 100ml.bag @ 50 mls/hr IVPB Q2H [facility] Rx#: [id number] Other 150 Output: Urine 1110 535 315 Other: Voiding Method Indwelling Catheter Indwelling Catheter Indwelling Catheter - Exam Physical Exam: Revealed a 67-year-old female in no distress, on 2 L nasal cannula. Head: Atraumatic, normocephalic. HEENT:[Neck is supple.] [No neck masses.] [No thyromegaly.] [No JVD.] Chest: [diminished breath sounds and dullness at the right base, no crackles or rhonchi or wheezes. Cardiac Exam: [irregular irregular rhythm.Normal S1 and S2, no S3 gallop, no murmur.] Abdomen: [Soft, nontender, no megaly, no rebound, no guarding, normal bowel sounds.] Extremities: [No clubbing, 1+ bipedal edema, no cyanosis.] Neurological Exam: [No focal neurologic deficit.]alert oriented 3. Skin: Skin ulcers on lower extremities were noted, all wrapped with sterile dressing. - Labs CBC & Chem 7: 10/22/18 05:00 10/22/18 05:00 Labs: Abnormal Lab Results - Last 24 Hours (Table) 10/22/18 10/22/18 Range/Units 05:00 05:00 WBC 13.0 H (3.8-10.6) k/uL RBC 3.03 L (3.80-5.40) m/uL Hgb 8.9 L (11.4-16.0) gm/dL Hct 29.0 L (34.0-46.0) % MCHC 30.8 L (31.0-37.0) g/dL RDW 20.9 H (11.5-15.5) % Neutrophils # 11.3 H (1.3-7.7) k/uL Potassium 3.3 L (3.5-5.1) mmol/L Carbon Dioxide 33 H (22-30) mmol/L Calcium 7.7 L (8.4-10.2) mg/dL Microbiology - Last 24 Hours (Table) 10/20/18 11:00 Gram Stain - Preliminary Pleural Fluid Body Fluid Culture - Preliminary Assessment and Plan Assessment: 1 acute and recurrent GI bleed, likely of an upper GI source. this is being addressed by GI on the case. Being followed by gastroenterology. 2 anemia, secondary to blood loss and the patient got transferred as total of 4 units of packed RBC so far this admission. 3 coronary artery disease with recent bypass surgery, the patient underwent an off-pump three-vessel bypass surgery on 08/23/2018 4 right-sided pleural effusion, status post thoracentesis, labs are pending on the pleural effusion. May have to repeat ultrasound, may require another thoracentesis on the right side. Waiting for the results on the previous pleural effusion which was drained by Dr. Banerjee. 5 atrial fibrillation the rate is controlled and the patient is on long-term and to coagulation with Eliquis 6 history of coronary disease and previous MS of a non-STEMI type 7 hypertension 8 hyperlipidemia 9 uterine cancer 10 medical debility , Multifactorial. Recommendation: Continue present supportive care measures, continue antibiotics, continue to investigate the source of her recurrent upper GI bleeding, we'll arrange for a right sided chest ultrasound, and may require thoracentesis on the right side again. In the meantime increase Lasix. Prognosis remains guarded and poor in the long run. Continue to follow. Not quite ready to be transferr ed out of the ICU at this point yet. Time with Patient: Less than 30
[2018-10-22] MEDS ORDERED: POTASSIUM CHLORIDE 20 MEQ in WATER FOR INJECTION 1 100ML.BAG IVPB SCH (13:15)
--- NOTE | 2018-10-22 16:01 | PN ---
PROGRESS NOTE DATE OF SERVICE: 10/22/2018. REASON FOR FOLLOWUP: 1. Left medial knee area wound postsurgical. 2. Right lower extremity venostasis ulcer. INTERVAL HISTORY: The patient is currently afebrile. The patient has been breathing comfortably. Denies having any chest pain or cough. No abdominal pain. No pain to the left medial knee area wound. PHYSICAL EXAMINATION: Blood pressure 124/52 with a pulse of 69. Temperature is 97, he is 99% on 3 L nasal cannula. General description is an elderly female up in the bed in no distress respiratory system unlabored breathing, clear to auscultation anteriorly. Heart S1, S2. Regular rate and rhythm. Abdomen soft, no tenderness. The left medial ankle wound still has some slough tissue with no surrounding redness or any foul-smelling drainage. LABS: Hemoglobin 8.8, white count 13,000. BUN of 16. Creatinine 0.89. DIAGNOSTIC IMPRESSION/PLAN: 1. Patient with left medial knee area wound currently with no evidence of cellulitis and recommend local wound care with Medihoney. 2. Right leg venous stasis, ulcer no cellulitis, local wound care with Medihoney and off pressure to keep the swelling down. 3. We will monitor the patient closely off antibiotic therapy. The positive cultures from the left medial knee were more likely as an E coli colonization rather than true infection. MMODL / IJN: [id number] /
[2018-10-22] MEDS: POTASSIUM BICARBONATE/CIT AC 20 MEQ TABLET.EFF NG-TUBE SCH ×2 (16:35→17:39)
[2018-10-22] MEDS: FUROSEMIDE 40 MG TAB PO SCH (16:36)
[2018-10-22 17:58] LABS: Total Protein, Body Fluid 3600 mg/dL
[2018-10-22] MEDS: POTASSIUM CHLORIDE ER 20 MEQ TAB.ER PO SCH (18:19)
[2018-10-22] MEDS: ATORVASTATIN 80 MG TAB PO SCH (20:15)
--- NOTE | 2018-10-22 22:41 | P.PN ---
Subjective Progress Note Date: 10/22/18 Principal diagnosis: Acute GI bleed in the proximal small bowel Acute blood loss anemia This is a pleasant 67 years old female with past medical history of atrial fibrillation, coronary artery disease, recent GI bleed and 10/2018 , COPD, hyperlipidemia, hypertension, osteoarthritis, uterine Cancer.Presents with signs symptoms of GI bleed. Patient currently is in the critical care unit, Patient had negative EGD and capsule endoscopy she had recent colonoscopy as well. Source of bleeding is well known however it could be small bowel, aggravated by being on anticoagulation. Patient got several units of blood transfusion for her anemia. Also she is on Zosyn antibiotic for wound infection lower extremity with pseudomonas. She is awake, known in pain or distress. Diet is advanced. 10/19/2018 Patient is currently in the intensive care unit. Denied any complaints of chest pain or worsening shortness of breath. Current hemoglobin is 8.1. Patient underwent total of 4 units of PRBC transfusion since admission. Gastroenterology is following. Patient remains on antibiotics in the form of Zosyn with wound cultures showing pseudomonas and MRSA. WBC 9.5. Creatinine 1.1. No fever no chills. Patient did have dark-colored stools. 10/20/2018 Patient is awake alert and oriented. Saturating well on 2 L nausea cannula. Hemoglobin is 7.8 today. Patient is getting blood transfusion. Otherwise patient had right-sided thoracentesis done today. Patient has been afebrile. Gastroenterology and pulmonary is following. ID is on board. Continue with the wound care and supportive care. Patient is being continued on Protonix and IV hydration. 10/21/2018 Patient is able to sit in the chair comfortably today. Breathing status is improved after thoracentesis and 1.8 L fluid removal. Fluid analysis is pending at this time. Otherwise saturating well on 2 L nausea cannula. Hemoglobin is 8.5 today. Patient remains on antibiotics of Zosyn. Continue with Protonix and GI is planning to perform a push enteroscopy. Otherwise no compressive chest pain. No nausea vomiting or diarrhea. Patient had dark-colored bowel movement yesterday. 10/22/2018 Patient is currently sitting in the chair. Awake alert and able to communicate slowly. No worsening shortness of breath. Chest x-ray showed correlate for congestive heart failure, pneumonia not excluded. They will be right-sided pleural effusion. Patient is being continued on Lasix increased to 40 mg twice daily. Patient underwent push enteroscopy yesterday. Full report is pending at this time. Renal function is stable. Wound cultures growing pseudomonas and MRSA. Patient is off antibiotics and is being monitored. ID is on board. Current medications reviewed. Objective - Vital Signs Vital signs: Vital Signs Temp 97.5 F L 10/22/18 20:00 Pulse 60 10/22/18 20:00 Resp 25 H 10/22/18 20:00 BP 104/69 10/22/18 20:00 Pulse Ox 98 10/22/18 20:00 Intake & Output 10/22/18 10/22/18 10/23/18 06:59 18:59 06:59 Intake Total 370 1415 Output Total 535 520 Balance -165 895 Intake: IV 220 925 Sodium Chloride 0.9% 500 220 925 ml 500 ml @ 75 mls/hr IV .Q6H40M [facility] Rx#:[id number] Intake, IV Titration 50 Amount Potassium Chloride 20 meq 50 In Water For Injection 1 100ml.bag @ 50 mls/hr IVPB Q2H [facility] Rx#: [id number] Oral 440 Other 150 Output: Urine 535 520 Other: Voiding Method Indwelling Catheter Indwelling Catheter - Exam GENERAL: The patient is alert and oriented x3, not in any acute distress. Obese HEENT: Pupils are round and equally reacting to light. EOMI. No scleral icterus. No conjunctival pallor. Normocephalic, atraumatic. No pharyngeal erythema. No thyromegaly. CARDIOVASCULAR: S1 and S2 present. No murmurs, rubs, or gallops. PULMONARY: bibasilar diminished air entry and basilar crackles.. no wheezing. ABDOMEN: Soft, nontender, nondistended, normoactive bowel sounds. No palpable organomegaly. MUSCULOSKELETAL: No joint swelling or deformity. -EXTREMITIES: No cyanosis, clubbing, or pedal edema. The left leg wound on the medial upper side NEUROLOGICAL: Gross neurological examination did not reveal any focal deficits. SKIN: No rashes. - Labs CBC & Chem 7: 10/22/18 05:00 10/22/18 12:50 Labs: Abnormal Lab Results - Last 24 Hours (Table) 10/22/18 10/22/18 Range/Units 05:00 05:00 WBC 13.0 H (3.8-10.6) k/uL RBC 3.03 L (3.80-5.40) m/uL Hgb 8.9 L (11.4-16.0) gm/dL Hct 29.0 L (34.0-46.0) % MCHC 30.8 L (31.0-37.0) g/dL RDW 20.9 H (11.5-15.5) % Neutrophils # 11.3 H (1.3-7.7) k/uL Potassium 3.3 L (3.5-5.1) mmol/L Carbon Dioxide 33 H (22-30) mmol/L Calcium 7.7 L (8.4-10.2) mg/dL Microbiology - Last 24 Hours (Table) 10/20/18 11:00 Anaerobic Culture - Preliminary Pleural Fluid 10/20/18 11:00 Gram Stain - Preliminary Pleural Fluid Body Fluid Culture - Preliminary Assessment and Plan Assessment: Acute GI bleed,. Status post EGD showed no evidence of bleeding. Capsule endoscopy showed bleeding site at proximal small bowel. Acute blood loss anemia, status post multiple blood transfusions left medial knee wound infection with Pseudomonas and MRSA. , site of vein grafting for coronary bypass grafting. Continue with antibiotics and wound care. Right lower extremity venous stasis ulcer. Paroxysmal atrial fibrillation, off anticoagulation now for her GI bleed Right-sided pleural effusion. Status post thoracentesis on 10/20/2018. History of coronary artery disease Hypertension Hyperlipidemia History of COPD, no acute exacerbation History of uterine cancer Plan: This is a pleasant 67 years old female presents with dark-colored stools due to GI bleed. Continue with Protonix. She is currently by mouth Lasix but she is off anticoagulation or aspirin. Patient is being followed by critical care team, gastroenterology and infectious disease. Currently off antibiotics.. .Labs and medication were reviewed.. Continue same treatment. Continue with symptomatic treatment. Monitor lytes and vitals. DVT and GI prophylaxis. Further recommendations of the clinical course of the patient. DVT prophylaxis: SCDs GI Prophylaxis: Protonix Prognosis is guarded Time with Patient: Greater than 30
[2018-10-23 06:20] LABS: Anisocytosis Moderate; HCT 26.7 % (34.0-46.0); Hypochromasia Marked; MCH 29.2 pg (25.0-35.0); MCV 97.1 fL (80.0-100.0); Macrocytosis Moderate; Mean Platelet Volume 10.9; Platelet Count 157 k/uL (150-450); Poikilocytosis Moderate; RBC 2.75 m/uL (3.80-5.40); RDW 21.3 % (11.5-15.5); WBC 9.2 k/uL (3.8-10.6)
[2018-10-23 06:26] LABS: Calcium 7.4 mg/dL (8.4-10.2); Magnesium 1.8 mg/dL (1.6-2.3); Phosphorus 2.3 mg/dL (2.5-4.5); Potassium 3.5 mmol/L (3.5-5.1)
[2018-10-23] MEDS ORDERED: Magnesium Replacement Protocol 1 EACH MISC MISCELLANE PRN (06:36)
[2018-10-23] MEDS ORDERED: Phosphorus Replacement Protoco 1 EACH MISC MISCELLANE PRN (06:36)
[2018-10-23] MEDS: SODIUM CHLORIDE 0.9% 500 ML 500 ML IV SCH ×3 (06:44→13:50)
[2018-10-23] MEDS: MAGNESIUM SULFATE-D5W PMX 1 GM in DEXTROSE/WATER 1 100ML.BAG IVPB SCH ×2 (06:52→07:59)
[2018-10-23] MEDS ORDERED: POTASSIUM PHOSPHATE 10 MMOL in SODIUM CHLORIDE 0.9% 100 ML IV ONE (07:00)
[2018-10-23] MEDS: POTASSIUM CHLORIDE ER 20 MEQ TAB.ER PO SCH ×3 (07:58→16:12)
[2018-10-23] MEDS: FERROUS SULFATE 325 MG TAB PO SCH ×2 (07:58→16:14)
[2018-10-23] MEDS: METOPROLOL TARTRATE 12.5 MG TAB PO SCH ×2 (08:08→16:12)
[2018-10-23] MEDS: SODIUM BICARBONATE TAB 650 MG TAB PO SCH ×2 (08:08→16:12)
[2018-10-23] MEDS: FUROSEMIDE 40 MG TAB PO SCH ×2 (08:08→16:12)
[2018-10-23] MEDS: CINACALCET 30 MG TAB PO SCH ×2 (08:08→16:12)
[2018-10-23] MEDS: PANTOPRAZOLE 40 MG TABLET PO SCH (08:08)
--- NOTE | 2018-10-23 08:47 | XR ---
EXAMINATION TYPE: XR chest 1V portable DATE OF EXAM: 10/23/2018 Comparison: 10/22/2018 Clinical History: 67-year-old female with shortness of breath Findings: Heart mildly enlarged. Most of the right heart margin is obscured by adjacent pleural parenchymal [place]. Opacity continues to extend to the midlung level on the right. Additional patchy density left m id and lower lung. Right tip in the right atrium. Mediastinal fixation hardware is present with post- CABG clips. Impression: Overall stable exam with continued moderate right pleural effusion with adjacent atelectasis and/or c onsolidation. Similar patchy infiltrate or atelectasis remains at the left mid and lower lung. Correl ate to exclude a component of mild CHF.
[2018-10-23 08:49] VITALS: TEMP 97
--- NOTE | 2018-10-23 12:39 | P.PN ---
Subjective Progress Note Date: 10/23/18 Principal diagnosis: acute and recurrent GI bleeding exact source is not clear. 77-year-old morbidly obese female patient with known history of coronary artery disease with previous bypass surgery also known history of chronic atrial fibrillation maintained on Eliquis on outpatient basis. The patient is known to have hypertension, chronic anemia and history of uterine cancer. The patient is known to me during her previous hospitalization as I took care of this patient's postoperative care following her cardiac surgery. Note that this is another hospitalization for this patient for the same ongoing GI bleed. The patient has a few hospitalizations for anemia and suspected GI bleed. The patient underwent an EGD on 09/24/2018 and there was no evidence of any acute bleeding or pathology. The patient also underwent a small bowel capsule endoscopy that showed no evidence of any acute or active bleeding. Subsequently the patient underwent a colonoscopy that was done on 10/05/2018 and this was done for symptomatically anemia of hemoglobin of 5.5 and it showed no evidence of any acute bleed and there was a normal-appearing colon and rectum and cecum and there was no evidence of colitis or colorectal neoplasia. The patient was restarted back on anticoagulation the patient was discharged home to be readmitted yesterday with painless gross burgundy stool and bowel movements were no other of 3 times since midnight. Hemoglobin dropped to 6.2 and MCV of 94. Platelet count was at 227. The patient received a total of 1 unit of packed RBC for hemoglobin of 6.8. She is hemodynamically stable. Chest x-ray showing a moderate-sized right-sided pleural effusion that was present on previous chest x-ray. The patient also has a left lower extremity open wound and previous cultures have shown Citrobacter and pseudomonas aeruginosa. Dialysis around 4 x 1 cm in size in the bases covered with purulent material. Reevaluated today on 10/21/2018, seen on follow-up in the intensive care unit, patient is feeling much better, breathing a lot easier, she underwent right sided thoracentesis yesterday, 1.8 L of fluid were drained, results of which are pending. Patient remains on 2 L nasal cannula, she is afebrile, in no distress, she is status post 4 units of packed RBCs transfused since this admission. Her present hemoglobin is 8.5. Patient remains on antibiotics in the form of Zosyn, all her labs were reviewed, remains on Protonix, GI is following, and still planning to perform a push enteroscopy. Reevaluated today on 10/22/2018, patient is resting in bed, on nasal cannula couple of liters, in no distress, however her chest x-ray is showing worsening and possibly recurrence of her right-sided pleural effusion. Tried to retrieve the results of the LDH protein from the pleural effusion, however it is not available, and the lab was notified to make sure that these tests are done to determine if the fluid is exudative or transudative in nature. Patient had wound cultures showing pseudomonas and MRSA. Hemoglobin today is 8.9. Electrolytes are normal BUN is normal creatinine is normal. Considering the worsening chest x-ray appearance, I increased her Lasix to 40 mg by mouth twice a day instead of 20 twice a day. Patient was reevaluated today on 10/23/2018, she is very comfortable, in no distress, on 2 L nasal cannula. Chest x-ray showed mostly atelectasis at the right base with possible recurrent pleural effusion, however ultrasound showed no significant fluid to be safely drained at this point, hence no plans to do thoracentesis on this patient. No active bleeding is noted. Patient is hemodynamically stable, and the GI is supposedly following regarding her recurrent episodes of GI bleeding. But no notes were seen from gastroenterology yet. Objective - Vital Signs Vital signs: Vital Signs Temp 97 F L 10/23/18 12:00 Pulse 62 10/23/18 11:00 Resp 16 10/23/18 12:00 BP 122/60 10/23/18 12:00 Pulse Ox 97 10/23/18 12:00 Intake & Output 10/22/18 10/23/18 10/23/18 18:59 06:59 18:59 Intake Total 1415 1340 425 Output Total 520 800 310 Balance 895 540 115 Intake: IV 925 900 225 Sodium Chloride 0.9% 500 925 900 225 ml 500 ml @ 75 mls/hr IV .[id number] JUANJOSE Rx#:[id number] Intake, IV Titration 50 200 Amount Magnesium Sulfate-D5w Pmx 100 1 gm In Dextrose/Water 1 100ml.bag @ 100 mls/hr IVPB Q1H JUANJOSE Rx#: [id number] Potassium Chloride 20 meq 50 In Water For Injection 1 100ml.bag @ 50 mls/hr IVPB Q2H JUANJOSE Rx#: [id number] Potassium Phosphate 10 100 mmol In Sodium Chloride 0 .9% 100 ml @ 50 mls/hr IV ONCE ONE Rx#:[id number] Oral 440 440 Output: Urine 520 800 310 Other: Voiding Method Indwelling Catheter Indwelling Catheter Indwelling Catheter # Bowel Movements 1 1 - Exam Physical Exam: Revealed a 67-year-old female in no distress, on 2 L nasal cannula. Head: Atraumatic, normocephalic. HEENT:[Neck is supple.] [No neck masses.] [No thyromegaly.] [No JVD.] Chest: [diminished breath sounds and dullness at the right base, no crackles or rhonchi or wheezes. Cardiac Exam: [irregular irregular rhythm.Normal S1 and S2, no S3 gallop, no murmur.] Abdomen: [Soft, nontender, no megaly, no rebound, no guarding, normal bowel sounds.] Extremities: [No clubbing, 1+ bipedal edema, no cyanosis.] Neurological Exam: [No focal neurologic deficit.]alert oriented 3. Skin: Skin ulcers on lower extremities were noted, all wrapped with sterile dressing. - Labs CBC & Chem 7: 10/23/18 05:10 10/23/18 05:10 Labs: Abnormal Lab Results - Last 24 Hours (Table) 10/23/18 10/23/18 Range/Units 05:10 05:10 RBC 2.75 L (3.80-5.40) m/uL Hgb 8.0 L (11.4-16.0) gm/dL Hct 26.7 L (34.0-46.0) % MCHC 30.0 L (31.0-37.0) g/dL RDW 21.3 H (11.5-15.5) % Carbon Dioxide 36 H (22-30) mmol/L Calcium 7.4 L (8.4-10.2) mg/dL Phosphorus 2.3 L (2.5-4.5) mg/dL Microbiology - Last 24 Hours (Table) 10/20/18 11:00 Gram Stain - Preliminary Pleural Fluid Body Fluid Culture - Preliminary 10/20/18 11:00 Anaerobic Culture - Preliminary Pleural Fluid Assessment and Plan Assessment: 1 acute and recurrent GI bleed, likely of an upper GI source. this is being addressed by GI on the case. Being followed by gastroenterology. 2 anemia, secondary to blood loss and the patient got transferred as total of 4 units of packed RBC so far this admission. 3 coronary artery disease with recent bypass surgery, the patient underwent an off-pump three-vessel bypass surgery on 08/23/2018 4 right-sided pleural effusion, status post thoracentesis, fluid was noted to be exudative in nature, cytology was negative, cultures are negative, it is probably parapneumonic in nature. 5 atrial fibrillation the rate is controlled and the patient is on long-term and to coagulation with Eliquis, presently off anti-granulation of the neck. 6 history of coronary disease and previous MT of a non-STEMI type 7 hypertension 8 hyperlipidemia 9 uterine cancer 10 medical debility , Multifactorial. Recommendation: Continue present supportive care measures, continue antibiotics, continue to investigate the source of her recurrent upper GI bleeding, no plans to do thoracentesis at this point considering the ultrasound findings, patient could be considered for transfer out of the ICU to a monitor bed on selective. We'll continue to follow. Time with Patient: Less than 30
--- NOTE | 2018-10-23 13:28 | PN ---
PROGRESS NOTE DATE OF SERVICE: 10/23/2018. REASON FOR FOLLOWUP: 1. Left medial knee postsurgical wound. 2. Right lower extremity venous stasis ulcer, no cellulitis. INTERVAL HISTORY: The patient is currently afebrile. The patient is breathing comfortably. Denies having any chest pain or cough. No abdominal pain or pain to the right or left medial knee wound area. PHYSICAL EXAMINATION: Blood pressure is 122/60 with a pulse of 52, temperature 97, she is 97% on 2 L nasal cannula. General description is an elderly female up in the chair in no distress. Respiratory system: Unlabored breathing. Decreased breath sounds in the bases. No wheeze. Heart S1, S2. Regular rate and rhythm. Abdomen soft, no tenderness. Legs: Both legs has significant swelling. Left medial knee wound with no drainage on the dressing. LABS: White count normal at 9.2, hemoglobin is 8 with a BUN of 13, creatinine 0.8. DIAGNOSTIC IMPRESSION AND PLAN: 1. Patient with left medial knee area wound postsurgical from a recent vein grafting for bypass surgery, positive culture likely colonization as the patient currently does not have any features of cellulitis. Her white count is normal. She is not running any fever. Local wound care to continue with the Medihoney. 2. Right lower extremity venostasis ulcer. No cellulitis. Local wound care to continue with Medihoney, followed by Craig wrap for compression to keep the swelling down. MMODL / IJN: [id number] /
--- NOTE | 2018-10-23 15:34 | P.DS ---
Providers Date of admission: 10/14/18 15:40 Expected date of discharge: 10/23/18 Attending physician: Christopher Almaraz Consults: 10/15/18 00:16 Consult Physician Stat Consulting Provider: Vasile Banerjee Consult Reason/Comments: ICU management, GI bleed Do you want consulting provider notified?: Yes 10/16/18 14:41 Consult Physician Routine Consulting Provider: Katalina Pino Consult Reason/Comments: Wound care Do you want consulting provider notified?: Yes Primary care physician: Vidal Howard Hospital Course: Discharge diagnosis Acute GI bleed,. Status post EGD showed no evidence of bleeding. Capsule endoscopy showed bleeding site at proximal small bowel. Push enteroscopy could not be completed. Acute blood loss anemia, status post multiple blood transfusions. left medial knee wound infection with Pseudomonas and MRSA. , site of vein grafting for coronary bypass grafting. Patient was on antibiotics while in the hospital. Possible colonization by ID. DC'd antibiotics now. Continue with wound care.. Right lower extremity venous stasis ulcer. Paroxysmal atrial fibrillation, off anticoagulation now for her GI bleed Right-sided pleural effusion. Status post thoracentesis on 10/20/2018. Pleural fluid showed no malignant cells. History of coronary artery disease Hypertension Hyperlipidemia History of COPD, no acute exacerbation History of uterine cancer DVT prophylaxis with STDs. Hospital course This is a pleasant 67 years old female with past medical history of atrial fibrillation, coronary artery disease, recent GI bleed and 10/2018 , COPD, hyperl ipidemia, hypertension, osteoarthritis, uterine Cancer.Presents with signs symptoms of GI bleed. Patient currently is in the critical care unit, Patient had negative EGD and capsule endoscopy she had colonoscopy as well. Source of bleeding is well known however it could be small bowel, aggravated by being on anticoagulation. Patient got several units of blood transfusion for her anemia. Was also started on on Zosyn antibiotic for wound infection lower extremity with pseudomonas. She is awake, known in pain or distress. 10/19/2018 Patient is currently in the intensive care unit. Denied any complaints of chest pain or worsening shortness of breath. Current hemoglobin is 8.1. Patient underwent total of 4 units of PRBC transfusion since admission. Gastroenterology is following. Patient remains on antibiotics in the form of Zosyn with wound cultures showing pseudomonas and MRSA. WBC 9.5. Creatinine 1.1. No fever no chills. Patient did have dark-colored stools. 10/20/2018 Patient is awake alert and oriented. Saturating well on 2 L nausea cannula. Hemoglobin is 7.8 today. Patient is getting blood transfusion. Otherwise patient had right-sided thoracentesis done today. Patient has been afebrile. Gastroenterology and pulmonary is following. ID is on board. Continue with the wound care and supportive care. Patient is being continued on Protonix and IV hydration. 10/21/2018 Patient is able to sit in the chair comfortably today. Breathing status is improved after thoracentesis and 1.8 L fluid removal. Fluid analysis is pending at this time. Otherwise saturating well on 2 L nausea cannula. Hemoglobin is 8.5 today. Patient remains on antibiotics of Zosyn. Continue with Protonix and GI is planning to perform a push enteroscopy. Otherwise no compressive chest pain. No nausea vomiting or diarrhea. Patient had dark-colored bowel movement yesterday. 10/22/2018 Patient is currently sitting in the chair. Awake alert and able to communicate slowly. No worsening shortness of breath. Chest x-ray showed correlate for congestive heart failure, pneumonia not excluded. They will be right-sided pleural effusion. Patient is being continued on Lasix increased to 40 mg twice daily. Patient underwent push enteroscopy yesterday. Full report is pending at this time. Renal function is stable. Wound cultures growing pseudomonas and MRSA. Patient is off antibiotics and is being monitored. ID is on board. 10/23/2018 Patient is currently sitting in the chair comfortably. No complaints of chest pain or shortness of breath. Saturating well on nasal cannula. Hemoglobin is 8.0. No episodes of hematemesis R melena. eliquis and Aspirin is on hold. Current with Protonix. Patient is otherwise stable to be transferred to extended care facility. Discharge medications reconciliation was done. Patient was seen by gastroenterology, pulmonary and infectious disease while in the hospital. GENERAL: The patient is alert and oriented x3, not in any acute distress. Obese HEENT: Pupils are round and equally reacting to light. EOMI. No scleral icterus. No conjunctival pallor. Normocephalic, atraumatic. No pharyngeal erythema. No thyromegaly. CARDIOVASCULAR: S1 and S2 present. No murmurs, rubs, or gallops. PULMONARY: bibasilar diminished air entry and basilar crackles.. no wheezing. ABDOMEN: Soft, nontender, nondistended, normoactive bowel sounds. No palpable organomegaly. MUSCULOSKELETAL: No joint swelling or deformity. -EXTREMITIES: No cyanosis, clubbing, or pedal edema. The left leg wound on the medial upper side and right lower extremities venous ulcers. No signs of infection. NEUROLOGICAL: Gross neurological examination did not reveal any focal deficits. SKIN: No rashes. Except the above ulcer on the legs. Vital Signs 10/23/18 10/23/18 10/23/18 08:00 09:00 10:00 Temperature 97 F L Pulse Rate 61 65 65 Respiratory 20 22 25 H Rate Blood Pressure 95/83 107/82 100/61 O2 Sat by Pulse 98 98 97 Oximetry 10/23/18 10/23/18 10/23/18 11:00 11:32 12:00 Temperature 97 F L Pulse Rate 62 Respiratory 25 H 25 H 16 Rate Blood Pressure 127/78 122/60 O2 Sat by Pulse 98 97 Oximetry 10/23/18 10/23/18 10/23/18 13:00 14:00 15:00 Temperature Pulse Rate 61 61 73 Respiratory 19 14 15 Rate Blood Pressure 121/78 120/82 112/79 O2 Sat by Pulse 96 97 96 Oximetry 10/23/18 15:03 Temperature Pulse Rate Respiratory 15 Rate Blood Pressure O2 Sat by Pulse Oximetry Total time taken greater than 35 minutes including 18 minutes for counseling and coordination of care. Patient Condition at Discharge: Fair Plan - Discharge Summary Discharge Rx Participant: No New Discharge Prescriptions: New Ferrous Sulfate [Iron (65 MG Elemental)] 325 mg PO BID-W/MEALS tab Furosemide [Lasix] 40 mg PO BID@0900,1600 tab Continue Cholecalciferol (Vitamin D3) [Vitamin D3] 2,000 unit PO DAILY@1700 Magnesium Hydroxide [Milk of Magnesia Concentrate] 2,400 mg PO DAILY PRN ml PRN Reason: Constipation Acetaminophen Tab [Tylenol] 650 mg PO Q4HR PRN tab PRN Reason: Fever and/ or Moderate Pain Atorvastatin [Lipitor] 80 mg PO HS@2100 Benzocaine/Menthol Lozeng [Cepacol lozenge] 1 lozenge MUCOUS MEM Q2H PRN PRN Reason: Sore Throat Bisacodyl [Dulcolax] 10 mg RECTAL DAILY PRN PRN Reason: Constipation Cinacalcet [Sensipar] 60 mg PO BID@0800,1700 INSULIN ASPART (NovoLOG) [NovoLOG (formulary)] See Protocol SQ ACHS Ipratropium-Albuterol Nebulize [Duoneb 0.5 mg-3 mg/3 ml Soln] 3 ml INHALATION RT-Q4H PRN PRN Reason: Shortness Of Breath Metoprolol Tartrate [Lopressor] 12.5 mg PO BID@0800,1700 Pantoprazole [Protonix] 40 mg PO DAILY@0600 Potassium Chloride ER [K-Dur 20] 20 meq PO DAILY@1700 Sodium Bicarbonate Tab 650 mg PO BID@0800,1700 Sennosides-Docusate Sodium [Senokot-S] 2 tab PO HS PRN PRN Reason: Constipation [place] Instant Breakfast 1 packet PO DAILY@0800 Discontinued Apixaban [Eliquis] 5 mg PO BID@0800,1700 Aspirin [Adult Low Dose Aspirin EC] 81 mg PO DAILY@1700 Furosemide [Lasix] 20 mg PO BID@0600,1400 Na Phos,M-B/Na Phos,Di-Ba [Fleet Adult] 133 ml RECTAL DAILY PRN PRN Reason: Constipation Discharge Medication List Cholecalciferol (Vitamin D3) [Vitamin D3] 2,000 unit PO DAILY@1700 08/15/18 [History] Acetaminophen Tab [Tylenol] 650 mg PO Q4HR PRN tab 08/28/18 [Rx] Magnesium Hydroxide [Milk of Magnesia Concentrate] 2,400 mg PO DAILY PRN ml 08/28/18 [Rx] Atorvastatin [Lipitor] 80 mg PO HS@2100 09/21/18 [History] Benzocaine/Menthol Lozeng [Cepacol lozenge] 1 lozenge MUCOUS MEM Q2H PRN 09/21/18 [History] Bisacodyl [Dulcolax] 10 mg RECTAL DAILY PRN 09/21/18 [History] Cinacalcet [Sensipar] 60 mg PO BID@0800,1700 09/21/18 [History] INSULIN ASPART (NovoLOG) [NovoLOG (formulary)] See Protocol SQ ACHS 09/21/18 [History] Ipratropium-Albuterol Nebulize [Duoneb 0.5 mg-3 mg/3 ml Soln] 3 ml INHALATION RT-Q4H PRN 09/21/18 [History] Metoprolol Tartrate [Lopressor] 12.5 mg PO BID@0800,1700 09/21/18 [History] Pantoprazole [Protonix] 40 mg PO DAILY@0600 09/21/18 [History] Potassium Chloride ER [K-Dur 20] 20 meq PO DAILY@1700 09/21/18 [History] Sennosides-Docusate Sodium [Senokot-S] 2 tab PO HS PRN 09/21/18 [History] Sodium Bicarbonate Tab 650 mg PO BID@0800,1700 09/21/18 [History] [place] Instant Breakfast 1 packet PO DAILY@0800 10/02/18 [History] Ferrous Sulfate [Iron (65 MG Elemental)] 325 mg PO BID-W/MEALS tab 10/23/18 [Rx] Furosemide [Lasix] 40 mg PO BID@0900,1600 tab 10/23/18 [Rx] Follow up Appointment(s)/Referral(s): Vidal Howard MD [Primary Care Provider] - 1-2 days Discharge Disposition: TRANSFER TO SNF/ECF
--- NOTE | 2018-10-23 15:34 | US ---
EXAMINATION TYPE: US chest DATE OF EXAM: 10/23/2018 COMPARISON: 10/19/2018 CLINICAL HISTORY: 67-year-old female [place] for thoracentesis by pulmonary staff. TECHNIQUE: Targeted ultrasound of the posterior lower hemithoraces on both sides. FINDINGS: EXAM MEASUREMENTS: Right Pleural Effusion pocket size: 4.1 cm Right skin surface to fluid distance: 3.9 cm Left Pleural Effusion pocket size: 1.3 cm Pulmonologists are able to review the images in the patient?s EMR. IMPRESSIONS: [id number] right and trace left effusions.
[2018-10-23 16:15] VITALS: BP 127/65; PULSE 59; RESP 19
== END 2018-10-23 17:48 | DRG 378 ==
LOC: EC 11:57 → 3NMEDONC 15:40 → 4MS4W 19:43 → 2SICU 22:21
PROVIDERS: ADMIT Hospitalist; ATTEND Hospitalist
PROC: 30233N1 Transfusion of Nonautologous Red Blood Cells into Peripheral Vein, Percutaneous Approach (ICD-10-PCS; 2018-10-14)
PROC: 02HV33Z Insertion of Infusion Device into Superior Vena Cava, Percutaneous Approach (ICD-10-PCS; principal; 2018-10-14 15:00)
PROC: 0DJ08ZZ Inspection of Upper Intestinal Tract, Via Natural or Artificial Opening Endoscopic (ICD-10-PCS; 2018-10-15)
PROC: 0W993ZZ Drainage of Right Pleural Cavity, Percutaneous Approach (ICD-10-PCS; 2018-10-23)
DX: K92.1 Melena (principal); D62 Acute posthemorrhagic anemia; Z68.43 Body mass index [BMI] 50.0-59.9, adult; I13.0 Hypertensive heart and chronic kidney disease with heart failure and stage 1 through stage 4 chronic kidney disease, or unspecified chronic kidney disease; I50.20 Unspecified systolic (congestive) heart failure; J90 Pleural effusion, not elsewhere classified; L89.152 Pressure ulcer of sacral region, stage 2; I48.0 Paroxysmal atrial fibrillation; E78.5 Hyperlipidemia, unspecified; J44.9 Chronic obstructive pulmonary disease, unspecified; E66.01 Morbid (severe) obesity due to excess calories; N18.3 Chronic kidney disease, stage 3 (moderate); B96.5 Pseudomonas (aeruginosa) (mallei) (pseudomallei) as the cause of diseases classified elsewhere; I48.2 Chronic atrial fibrillation; I65.23 Occlusion and stenosis of bilateral carotid arteries; B95.62 Methicillin resistant Staphylococcus aureus infection as the cause of diseases classified elsewhere; I73.9 Peripheral vascular disease, unspecified; I83.019 Varicose veins of right lower extremity with ulcer of unspecified site; M19.90 Unspecified osteoarthritis, unspecified site; R53.81 Other malaise; E21.3 Hyperparathyroidism, unspecified; I25.10 Atherosclerotic heart disease of native coronary artery without angina pectoris; H26.9 Unspecified cataract; Z96.653 Presence of artificial knee joint, bilateral; Z79.01 Long term (current) use of anticoagulants; I25.2 Old myocardial infarction; Z95.5 Presence of coronary angioplasty implant and graft; Z87.891 Personal history of nicotine dependence; Z95.1 Presence of aortocoronary bypass graft; Z79.4 Long term (current) use of insulin; Z79.899 Other long term (current) drug therapy; Z86.14 Personal history of Methicillin resistant Staphylococcus aureus infection
CPT/HCPCS: 36410; 36415; 36573; 43235; 44361; 71045; 76604; 76937; 80048; 80053; 81003; 82945; 83615; 83735; 84100; 84132; 84157; 84484; 85025; 85027; 85610; 85730; 86850; 86900; 86901; 86920; 87070; 87075; 87077; 87186; 87205; 88108; 88305; 89050; 91110; 94640; 94660; 96361; 96374; 96376; 99284

== ENCOUNTER 2018-12-06 14:30 | Emergency (ER) | payer MEDICARE, OTHER ==
[2018-12-06] MEDS ORDERED: POTASSIUM CHLORIDE ER 20 MEQ TAB.ER PO STA ×2 (15:44→16:38)
--- NOTE | 2018-12-06 15:48 | ED ---
Recheck HPI - General Source: patient, EMS, RN notes reviewed Mode of arrival: EMS Limitations: no limitations <Nabil Aldana - Last Filed: 12/06/18 16:40> <Mohan Peacock - Last Filed: 12/06/18 16:52> - General Chief Complaint: Recheck/Abnormal Lab/Rx Stated Complaint: low potassium Time Seen by Provider: 12/06/18 14:34 - History of Present Illness Initial Comments: 67-year-old female presents emergency Department if for abnormal labs. Patient had labs drawn today which showed potassium of 2.5. Patient has no complaints. Patient does take Lasix a regular basis with small doses of potassium replacement. Patient denies chest pain, palpitations, dizziness, nausea, vomiting, diarrhea constipation. Patient states that she's had low potassium past. Patient currently stays at [facility] (Nabil Aldana) - Related Data Home Medications Medication Instructions Recorded Confirmed Cholecalciferol (Vitamin D3) 2,000 unit PO DAILY@1700 08/15/18 10/14/18 [Vitamin D3] Atorvastatin [Lipitor] 80 mg PO HS@2100 09/21/18 10/14/18 Benzocaine/Menthol Lozeng [Cepacol 1 lozenge MUCOUS MEM Q2H PRN 09/21/18 10/14/18 lozenge] Bisacodyl [Dulcolax] 10 mg RECTAL DAILY PRN 09/21/18 10/14/18 Cinacalcet [Sensipar] 60 mg PO BID@0800,1700 09/21/18 10/14/18 INSULIN ASPART (NovoLOG) [NovoLOG See Protocol SQ ACHS 09/21/18 10/14/18 (formulary)] Ipratropium-Albuterol Nebulize 3 ml INHALATION RT-Q4H PRN 09/21/18 10/14/18 [Duoneb 0.5 mg-3 mg/3 ml Soln] Metoprolol Tartrate [Lopressor] 12.5 mg PO BID@0800,1700 09/21/18 10/14/18 Pantoprazole [Protonix] 40 mg PO DAILY@0600 09/21/18 10/14/18 Potassium Chloride ER [K-Dur 20] 20 meq PO DAILY@1700 09/21/18 10/14/18 Sennosides-Docusate Sodium 2 tab PO HS PRN 09/21/18 10/14/18 [Senokot-S] Sodium Bicarbonate Tab 650 mg PO BID@0800,1700 09/21/18 10/14/18 [place] Instant Breakfast 1 packet PO DAILY@0800 10/02/18 10/14/18 Previous Rx's Medication Instructions Recorded Acetaminophen Tab [Tylenol] 650 mg PO Q4HR PRN tab 08/28/18 Magnesium Hydroxide [Milk of 2,400 mg PO DAILY PRN ml 08/28/18 Magnesia Concentrate] Ferrous Sulfate [Iron (65 MG 325 mg PO BID-W/MEALS tab 10/23/18 Elemental)] Furosemide [Lasix] 40 mg PO BID@0900,1600 tab 10/23/18 Allergies Allergy/AdvReac Type Severity Reaction Status Date / Time No Known Allergies Allergy Verified 10/14/18 12:27 Review of Systems ROS Other: All systems not noted in ROS Statement are negative. <Nabil Aldana - Last Filed: 12/06/18 16:40> ROS Other: All systems not noted in ROS Statement are negative. <Mohan Peacock - Last Filed: 12/06/18 16:52> ROS Statement: Those systems with pertinent positive or pertinent negative responses have been documented in the HPI. Past Medical History Past Medical History: Atrial Fibrillation, Coronary Artery Disease (CAD), Chest Pain / Angina, COPD, GI Bleed, Hyperlipidemia, Hypertension, Myocardial Infarction (non Q-wave), Osteoarthritis (OA), Vascular Disorder Additional Past Medical History / Comment(s): UTERINE CANCER. LT CATARACT, morbid obesity. recent GIB 10/07/18 Last Myocardial Infarction Date:: 2003 History of Any Multi-Drug Resistant Organisms: None Reported Date of last positivie culture/infection: 10/15/18 MDRO Source:: MRSA KNEE Past Surgical History: Coronary Bypass/CABG, Heart Catheterization With Stent, Hysterectomy, Orthopedic Surgery Additional Past Surgical History / Comment(s): UZMA KNEE REPLACMENTS, RT ANKLE- METAL PLATE, RT ARM SX REPAIR D/T LACERATION. RT THUMB TENDON REPAIR," LT FOOT GREAT TOE BONE REMOVED". Off-pump 3 vessel CABG 08/23/2018 Past Anesthesia/Blood Transfusion Reactions: Blood Transfusion Reaction Additional Past Anesthesia/Blood Transfusion Reaction / Comment(s): PAST BLOOD [id number] Date of Last Stent Placement:: 2003 Past Psychological History: No Psychological Hx Reported Smoking Status: Former smoker Past Alcohol Use History: None Reported Past Drug Use History: None Reported - Past Family History Mother Family Medical History: No Reported History Father History Unknown: Yes <Nabil Aldana - Last Filed: 12/06/18 16:40> General Exam Limitations: no limitations General appearance: alert, in no apparent distress Head exam: Present: atraumatic, normocephalic, normal inspection Eye exam: Present: normal appearance, PERRL, EOMI. Absent: scleral icterus, conjunctival injection, periorbital swelling Respiratory exam: Present: normal lung sounds bilaterally. Absent: respiratory distress, wheezes, rales, rhonchi, stridor Cardiovascular Exam: Present: irregular rhythm, normal heart sounds. Absent: regular rate, normal rhythm, systolic murmur, diastolic murmur, rubs, gallop, clicks GI/Abdominal exam: Present: soft, normal bowel sounds. Absent: distended, tenderness, guarding, rebound, rigid <Nabil Aldana - Last Filed: 12/06/18 16:40> Course <Mohan Peacock - Last Filed: 12/06/18 16:52> Vital Signs 12/06/18 14:31 Temperature 98.5 F Pulse Rate 62 Respiratory 18 Rate Blood Pressure 127/53 O2 Sat by Pulse 100 Oximetry - Reevaluation(s) Reevaluation #1: 12/06/18 16:52 PA supervision: I proceeded and evaluation this case and did discuss case with Dr. Almaraz. Patient will receive oral medication discharged back to [facility]. (Mohan Peacock) Medical Decision Making - Lab Data Result diagrams: 12/06/18 15:50 12/06/18 15:50 <Nabil Aldana - Last Filed: 12/06/18 16:40> - Lab Data Result diagrams: 12/06/18 15:50 12/06/18 15:50 <Mohan Peacock - Last Filed: 12/06/18 16:52> - Medical Decision Making 67-year-old female presented from for hypokalemia. Patient's potassium is slightly higher than lab draw this morning. Her magnesium level is low also. She was replaced magnesium and potassium. We did discuss the case with Dr. Almaraz recommended 2 doses of oral potassium and discharged. Patient is asymptomatic there are new acute findings otherwise. (Nabil Aldana) - Lab Data Lab Results 12/06/18 12/06/18 Range/Units 15:50 15:50 WBC 13.2 H (3.8-10.6) k/uL RBC 4.04 (3.80-5.40) m/uL Hgb 12.1 (11.4-16.0) gm/dL Hct 36.9 (34.0-46.0) % MCV 91.4 (80.0-100.0) fL MCH 29.9 (25.0-35.0) pg MCHC 32.8 (31.0-37.0) g/dL RDW 16.7 H (11.5-15.5) % Plt Count 355 (150-450) k/uL Neutrophils % 85 % Lymphocytes % 9 % Monocytes % 4 % Eosinophils % 1 % Basophils % 0 % Neutrophils # 11.2 H (1.3-7.7) k/uL Lymphocytes # 1.2 (1.0-4.8) k/uL Monocytes # 0.5 (0-1.0) k/uL Eosinophils # 0.1 (0-0.7) k/uL Basophils # 0.0 (0-0.2) k/uL Anisocytosis Slight Sodium 131 L (137-145) mmol/L Potassium 2.7 L* (3.5-5.1) mmol/L Chloride 87 L (98-107) mmol/L Carbon Dioxide 36 H (22-30) mmol/L Anion Gap 8 mmol/L BUN 22 H (7-17) mg/dL Creatinine 0.79 (0.52-1.04) mg/dL Est GFR (CKD-EPI)AfAm 89 (>60 ml/min/1.73 sqM) Est GFR (CKD-EPI)NonAf 77 (>60 ml/min/1.73 sqM) Glucose 100 H (74-99) mg/dL Calcium 6.9 L (8.4-10.2) mg/dL Magnesium 1.2 L (1.6-2.3) mg/dL - EKG Data EKG Comments: EKG performed at 15:12 A. fib rate of 63 ND 116 QT status QTC 492/503 (Nabil Aldana) Disposition Is patient prescribed a controlled substance at d/c from ED?: No Time of Disposition: 16:41 <Nabil Aldana - Last Filed: 12/06/18 16:40> <Mohan Peacock - Last Filed: 12/06/18 16:52> Clinical Impression: Hypokalemia, Hypomagnesemia Disposition: HOME SELF-CARE Condition: Stable Instructions (If sedation given, give patient instructions): Hypokalemia (ED) Additional Instructions: Please return to the Emergency Department if symptoms worsen or any other concerns. Referrals: Vidal Howard MD [Primary Care Provider] - 1-2 days
[2018-12-06 16:10] LABS: Anisocytosis Slight; Basophils % (A) 0 %; Eosinophils # (A) 0.1 k/uL (0-0.7); Eosinophils % (A) 1 %; HCT 36.9 % (34.0-46.0); HGB 12.1 gm/dL (11.4-16.0); Lymphocytes # (A) 1.2 k/uL (1.0-4.8); Lymphocytes % (A) 9 %; MCH 29.9 pg (25.0-35.0); MCHC 32.8 g/dL (31.0-37.0); MCV 91.4 fL (80.0-100.0); Monocytes # (A) 0.5 k/uL (0-1.0); Monocytes % (A) 4 %; Neutrophils # (A) 11.2 k/uL (1.3-7.7); Neutrophils % (A) 85 %; Platelet Count 355 k/uL (150-450); RBC 4.04 m/uL (3.80-5.40); RDW 16.7 % (11.5-15.5); WBC 13.2 k/uL (3.8-10.6)
[2018-12-06 16:24] LABS: Calcium 6.9 mg/dL (8.4-10.2); Magnesium 1.2 mg/dL (1.6-2.3)
[2018-12-06 16:26] LABS: Potassium 2.7 mmol/L (3.5-5.1)
[2018-12-06] MEDS ORDERED: MAGNESIUM OXIDE 400 MG TAB PO STA (16:38)
[2018-12-06 18:17] VITALS: BP 124/75; PULSE 73; RESP 16; TEMP 98.1
== END 2018-12-06 17:47 | disposition home or self-care (01) ==
LOC: EC 14:30
DX: E87.6 Hypokalemia (principal); E83.42 Hypomagnesemia; I49.9 Cardiac arrhythmia, unspecified; J44.9 Chronic obstructive pulmonary disease, unspecified; I25.119 Atherosclerotic heart disease of native coronary artery with unspecified angina pectoris; I48.91 Unspecified atrial fibrillation; E78.5 Hyperlipidemia, unspecified; I10 Essential (primary) hypertension; I25.2 Old myocardial infarction; M19.90 Unspecified osteoarthritis, unspecified site; Z87.891 Personal history of nicotine dependence; Z79.4 Long term (current) use of insulin; Z79.899 Other long term (current) drug therapy; Z85.42 Personal history of malignant neoplasm of other parts of uterus; Z95.1 Presence of aortocoronary bypass graft; Z95.5 Presence of coronary angioplasty implant and graft; Z90.710 Acquired absence of both cervix and uterus; Z96.653 Presence of artificial knee joint, bilateral; Z87.19 Personal history of other diseases of the digestive system
CPT/HCPCS: 36415; 80048; 83735; 85025; 93005; 99285

== ENCOUNTER 2019-02-17 13:37 | Inpatient (IN) | payer MEDICARE, OTHER ==
--- NOTE | 2019-02-17 14:14 | ED ---
Weakness HPI - General Chief complaint: Weakness Stated complaint: FAILURE TO THRIVE Time Seen by Provider: 02/17/19 13:45 Source: patient, EMS Mode of arrival: EMS Limitations: no limitations - History of Present Illness Initial comments: The patient is a 68-year-old female who presents to the emergency department from [facility] with failure to thrive. She has a history of A. fib and coronary artery disease. It is reported from the patient that for the past 2 weeks she's had significant nausea with vomiting. States she is unable to hold down any of her food. She admits to mild abdominal pain. Denies bloody or bilious vomiting. Denies any changes in her bowel movements including diarrhea, constipation, melanotic stools or hematochezia. Denies any changes in her urination to include dysuria, hematuria or difficulty voiding. The patient does reside at [facility] permanently. States that she does not ambulate well at baseline. Denies any headaches or visual changes. No fevers or chills. No recent blunt head trauma. Denies any back or flank pain. There are no other alleviating, precipitating or modifying factors - Related Data Home Medications Medication Instructions Recorded Confirmed Cholecalciferol (Vitamin D3) 2,000 unit PO DAILY@1700 08/15/18 02/20/19 [Vitamin D3] Atorvastatin [Lipitor] 80 mg PO HS@2100 09/21/18 02/20/19 Bisacodyl [Dulcolax] 10 mg RECTAL DAILY PRN 09/21/18 02/20/19 Pantoprazole [Protonix] 40 mg PO DAILY@0800 09/21/18 02/20/19 Potassium Chloride ER [K-Dur 20] 20 meq PO Q6H 09/21/18 02/20/19 Sennosides-Docusate Sodium 2 tab PO HS PRN 09/21/18 02/20/19 [Senokot-S] Sodium Bicarbonate Tab 650 mg PO BID@0800,1700 09/21/18 02/20/19 Albuterol Nebulized [Ventolin 2.5 mg INHALATION RT-Q4H PRN 02/17/19 02/20/19 Nebulized] Albuterol Nebulized [Ventolin 2.5 mg INHALATION RT-QID 02/17/19 02/20/19 Nebulized] Ammonium Lactate Lotion 1 applic TOPICAL DAILY 02/17/19 02/20/19 [Lac-Hydrin 12% Lotion] Benzocaine/Menthol Lozeng [Cepacol 1 lozenge MUCOUS MEM Q2H PRN 02/17/19 02/20/19 lozenge] Cinacalcet HCl [Sensipar] 60 mg PO BID@0800,1700 02/17/19 02/20/19 Ferrous Sulfate [Iron (65 MG 325 mg PO BID@0800,1700 02/17/19 02/20/19 Elemental)] Loperamide HCl [Imodium A-D] 2 - 4 mg PO QID PRN 02/17/19 02/20/19 Mag Hydrox/Al Hydrox/Simeth 15 ml PO QID PRN 02/17/19 02/20/19 [Maalox] Metolazone [Zaroxolyn] 2.5 mg PO DAILY@0600 02/17/19 02/20/19 Metoprolol Tartrate [Lopressor] 12.5 mg PO BID@0800,1700 02/17/19 02/20/19 Magnesium Oxide Packet 240mg 240 mg PO DAILY@1700 02/20/19 02/20/19 Previous Rx's Medication Instructions Recorded Acetaminophen Tab [Tylenol] 650 mg PO Q4HR PRN tab 08/28/18 Magnesium Hydroxide [Milk of 2,400 mg PO DAILY PRN ml 08/28/18 Magnesia Concentrate] Cephalexin [Keflex] 250 mg PO Q8HR #9 capsule 02/19/19 Gabapentin [Neurontin] 100 mg PO BID #6 cap 02/19/19 LORazepam [Ativan] 0.5 mg PO DAILY@0800 #3 tab 02/19/19 Allergies Allergy/AdvReac Type Severity Reaction Status Date / Time No Known Allergies Allergy Verified 02/20/19 13:43 Review of Systems ROS Statement: Those systems with pertinent positive or pertinent negative responses have been documented in the HPI. ROS Other: All systems not noted in ROS Statement are negative. Past Medical History Past Medical History: Atrial Fibrillation, Coronary Artery Disease (CAD), Chest Pain / Angina, COPD, GI Bleed, Hyperlipidemia, Hypertension, Myocardial Infarction (non Q-wave), Osteoarthritis (OA), Vascular Disorder Additional Past Medical History / Comment(s): UTERINE CANCER. LT CATARACT, morbid obesity. recent GIB 10/07/18 Last Myocardial Infarction Date:: 2003 History of Any Multi-Drug Resistant Organisms: None Reported Date of last positivie culture/infection: 10/15/18 MDRO Source:: MRSA KNEE Past Surgical History: Coronary Bypass/CABG, Heart Catheterization With Stent, Hysterectomy, Orthopedic Surgery Additional Past Surgical History / Comment(s): UZMA KNEE REPLACMENTS, RT ANKLE- METAL PLATE, RT ARM SX REPAIR D/T LACERATION. RT THUMB TENDON REPAIR," LT FOOT GREAT TOE BONE REMOVED". Off-pump 3 vessel CABG 08/23/2018 Past Anesthesia/Blood Transfusion Reactions: Blood Transfusion Reaction Additional Past Anesthesia/Blood Transfusion Reaction / Comment(s): PAST BLOOD [id number] Date of Last Stent Placement:: 2003 Past Psychological History: No Psychological Hx Reported Smoking Status: Former smoker Past Alcohol Use History: None Reported Past Drug Use History: None Reported - Past Family History Mother Family Medical History: No Reported History Father History Unknown: Yes General Exam Limitations: no limitations General appearance: alert, in no apparent distress Head exam: Present: atraumatic, normocephalic Eye exam: Present: normal appearance, PERRL ENT exam: Present: normal exam, mucous membranes moist Neck exam: Present: normal inspection. Absent: tenderness, meningismus Respiratory exam: Present: normal lung sounds bilaterally. Absent: respiratory distress, wheezes, rales, rhonchi Cardiovascular Exam: Present: regular rate, normal rhythm GI/Abdominal exam: Present: soft, tenderness, other (obese. mild generalized tenderness). Absent: guarding, rebound, rigid Extremities exam: Present: normal inspection, pedal edema. Absent: tenderness Neurological exam: Present: alert, oriented X3 Psychiatric exam: Present: normal affect, normal mood Skin exam: Present: warm, dry, intact Course Vital Signs 02/17/19 02/17/19 02/17/19 13:40 13:41 14:00 Temperature 97.6 F Pulse Rate 85 85 Respiratory 18 22 18 Rate Blood Pressure 101/88 101/88 101/88 O2 Sat by Pulse 92 L 73 L Oximetry 02/17/19 02/17/19 02/17/19 15:00 16:00 17:00 Temperature Pulse Rate 86 80 73 Respiratory 18 18 Rate Blood Pressure 110/64 111/62 91/64 O2 Sat by Pulse 86 L Oximetry 02/17/19 18:00 Temperature Pulse Rate 75 Respiratory 17 Rate Blood Pressure 102/57 O2 Sat by Pulse 96 Oximetry EKG Findings - EKG Comments: EKG Findings:: EKG demonstrates atrial fibrillation with a controlled ventricular response. Rate is 76. QRS 124. QTC 479. No acute ST segment elevations. There is mild ST depression in leads V4 through V6 Medical Decision Making - Medical Decision Making Upon arrival the patient is placed into room 4. A thorough history and physical exam was performed. The patient is a difficult blood draw. Because of this I do perform a femoral stick in the patient's left groin. Peripheral IV was established in the patient's right shoulder. Laboratory studies were conducted. Sodium is 133. Creatinine 1.2. Glucose is low at 66. Patient's troponins elevated at 0.051. This compared to previous and patient does have a chronically elevated troponin. BNP elevated at 8020. Lactic acid is 2.9. Urinalysis shows 2+ protein, small blood, large leukocyte esterase, greater than 182 white blood cells with many white blood cell clumps. I did obtain blood cultures. Patient was started on Rocephin. CT of the patient's abdomen demonstrates right pleural effusion with basilar pulmonary atelectasis. Dilated common bile duct and gallbladder. I did order a gallbladder ultrasound. The patient was given an amp of dextrose. I also provided her with 500 mL normal saline and 4 mg of Zofran. I reevaluated the patient she continues to complain of nausea. Because of this I did recommend hospital admission. The patient did agree to this. A call discuss the case with the PA for [facility] who agreed to hospital admission. We'll consult GI. She will be fluid hydrated at 75 mL per hour. I will hold her diuretics. I did not heparinize the patient has she does have a history of GI bleed. Bridging orders were placed the patient was transported to floor in stable condition - Lab Data Result diagrams: 02/18/19 05:12 02/18/19 05:12 Lab Results 02/17/19 02/17/19 02/17/19 Range/Units 15:30 15:30 15:45 WBC (3.8-10.6) k/uL RBC (3.80-5.40) m/uL Hgb (11.4-16.0) gm/dL Hct (34.0-46.0) % MCV (80.0-100.0) fL MCH (25.0-35.0) pg MCHC (31.0-37.0) g/dL RDW (11.5-15.5) % Plt Count (150-450) k/uL Neutrophils % % Lymphocytes % % Monocytes % % Eosinophils % % Basophils % % Neutrophils # (1.3-7.7) k/uL Lymphocytes # (1.0-4.8) k/uL Monocytes # (0-1.0) k/uL Eosinophils # (0-0.7) k/uL Basophils # (0-0.2) k/uL Anisocytosis PT (9.0-12.0) sec INR (<1.2) APTT (22.0-30.0) sec Sodium 133 L (137-145) mmol/L Potassium 4.8 (3.5-5.1) mmol/L Chloride 94 L (98-107) mmol/L Carbon Dioxide 30 (22-30) mmol/L Anion Gap 9 mmol/L BUN 35 H (7-17) mg/dL Creatinine 1.21 H (0.52-1.04) mg/dL Est GFR (CKD-EPI)AfAm 53 (>60 ml/min/1.73 sqM) Est GFR (CKD-EPI)NonAf 46 (>60 ml/min/1.73 sqM) Glucose 66 L (74-99) mg/dL POC Glucose (mg/dL) (75-99) mg/dL POC Glu Custodial Worker ID Lactic Ac Sepsis Rflx Plasma Lactic Acid Hayden (0.7-2.0) mmol/L Calcium 7.1 L (8.4-10.2) mg/dL Total Bilirubin 1.0 (0.2-1.3) mg/dL AST 56 H (14-36) U/L ALT 32 (9-52) U/L Alkaline Phosphatase 124 (38-126) U/L Creatine Kinase 59 (30-135) U/L Troponin I 0.059 H* (0.000-0.034) ng/mL NT-Pro-B Natriuret Pep pg/mL Total Protein 5.5 L (6.3-8.2) g/dL Albumin 2.2 L (3.5-5.0) g/dL Lipase <10 L (23-300) U/L TSH Cancelled Urine Color Light Red Urine Appearance Turbid H (Clear) Urine pH 5.5 (5.0-8.0) Ur Specific [place] 1.019 (1.001-1.035) Urine Protein 2+ H (Negative) Urine Glucose (UA) Negative (Negative) Urine Ketones Negative (Negative) Urine Blood Small H (Negative) Urine Nitrite Negative (Negative) Urine Bilirubin Negative (Negative) Urine Urobilinogen <2.0 (<2.0) mg/dL Ur Leukocyte Esterase Large H (Negative) Urine RBC (0-5) /hpf Urine WBC >182 H (0-5) /hpf Urine WBC Clumps Many H (None) /hpf Ur Squamous Epith Cells 9 H (0-4) /hpf Hyaline Casts 76 H (0-2) /lpf 02/17/19 02/17/19 02/17/19 Range/Units 16:18 16:18 16:18 WBC (3.8-10.6) k/uL RBC (3.80-5.40) m/uL Hgb (11.4-16.0) gm/dL Hct (34.0-46.0) % MCV (80.0-100.0) fL MCH (25.0-35.0) pg MCHC (31.0-37.0) g/dL RDW (11.5-15.5) % Plt Count (150-450) k/uL Neutrophils % % Lymphocytes % % Monocytes % % Eosinophils % % Basophils % % Neutrophils # (1.3-7.7) k/uL Lymphocytes # (1.0-4.8) k/uL Monocytes # (0-1.0) k/uL Eosinophils # (0-0.7) k/uL Basophils # (0-0.2) k/uL Anisocytosis PT 13.9 H (9.0-12.0) sec INR 1.4 H (<1.2) APTT 23.0 (22.0-30.0) sec Sodium (137-145) mmol/L Potassium (3.5-5.1) mmol/L Chloride (98-107) mmol/L Carbon Dioxide (22-30) mmol/L Anion Gap mmol/L BUN (7-17) mg/dL Creatinine (0.52-1.04) mg/dL Est GFR (CKD-EPI)AfAm (>60 ml/min/1.73 sqM) Est GFR (CKD-EPI)NonAf (>60 ml/min/1.73 sqM) Glucose (74-99) mg/dL POC Glucose (mg/dL) (75-99) mg/dL POC Glu Custodial Worker ID Lactic Ac Sepsis Rflx Plasma Lactic Acid Hayden 2.9 H* (0.7-2.0) mmol/L Calcium (8.4-10.2) mg/dL Total Bilirubin (0.2-1.3) mg/dL AST (14-36) U/L ALT (9-52) U/L Alkaline Phosphatase (38-126) U/L Creatine Kinase (30-135) U/L Troponin I (0.000-0.034) ng/mL NT-Pro-B Natriuret Pep 8020 pg/mL Total Protein (6.3-8.2) g/dL Albumin (3.5-5.0) g/dL Lipase (23-300) U/L TSH Urine Color Urine Appearance (Clear) Urine pH (5.0-8.0) Ur Specific [place] (1.001-1.035) Urine Protein (Negative) Urine Glucose (UA) (Negative) Urine Ketones (Negative) Urine Blood (Negative) Urine Nitrite (Negative) Urine Bilirubin (Negative) Urine Urobilinogen (<2.0) mg/dL Ur Leukocyte Esterase (Negative) Urine RBC (0-5) /hpf Urine WBC (0-5) /hpf Urine WBC Clumps (None) /hpf Ur Squamous Epith Cells (0-4) /hpf Hyaline Casts (0-2) /lpf 02/17/19 02/17/19 02/17/19 Range/Units 16:18 16:18 16:18 WBC 10.7 H (3.8-10.6) k/uL RBC 3.97 (3.80-5.40) m/uL Hgb 11.7 (11.4-16.0) gm/dL Hct 34.0 (34.0-46.0) % MCV 85.6 (80.0-100.0) fL MCH 29.3 (25.0-35.0) pg MCHC 34.2 (31.0-37.0) g/dL RDW 16.5 H (11.5-15.5) % Plt Count 221 (150-450) k/uL Neutrophils % 87 % Lymphocytes % 8 % Monocytes % 4 % Eosinophils % 0 % Basophils % 0 % Neutrophils # 9.3 H (1.3-7.7) k/uL Lymphocytes # 0.9 L (1.0-4.8) k/uL Monocytes # 0.4 (0-1.0) k/uL Eosinophils # 0.0 (0-0.7) k/uL Basophils # 0.0 (0-0.2) k/uL Anisocytosis Slight PT (9.0-12.0) sec INR (<1.2) APTT (22.0-30.0) sec Sodium (137-145) mmol/L Potassium (3.5-5.1) mmol/L Chloride (98-107) mmol/L Carbon Dioxide (22-30) mmol/L Anion Gap mmol/L BUN (7-17) mg/dL Creatinine (0.52-1.04) mg/dL Est GFR (CKD-EPI)AfAm (>60 ml/min/1.73 sqM) Est GFR (CKD-EPI)NonAf (>60 ml/min/1.73 sqM) Glucose (74-99) mg/dL POC Glucose (mg/dL) (75-99) mg/dL POC Glu Custodial Worker ID Lactic Ac Sepsis Rflx Plasma Lactic Acid Hayden (0.7-2.0) mmol/L Calcium (8.4-10.2) mg/dL Total Bilirubin (0.2-1.3) mg/dL AST (14-36) U/L ALT (9-52) U/L Alkaline Phosphatase (38-126) U/L Creatine Kinase (30-135) U/L Troponin I 0.051 H* (0.000-0.034) ng/mL NT-Pro-B Natriuret Pep pg/mL Total Protein (6.3-8.2) g/dL Albumin (3.5-5.0) g/dL Lipase (23-300) U/L TSH 1.950 Urine Color Urine Appearance (Clear) Urine pH (5.0-8.0) Ur Specific [place] (1.001-1.035) Urine Protein (Negative) Urine Glucose (UA) (Negative) Urine Ketones (Negative) Urine Blood (Negative) Urine Nitrite (Negative) Urine Bilirubin (Negative) Urine Urobilinogen (<2.0) mg/dL Ur Leukocyte Esterase (Negative) Urine RBC (0-5) /hpf Urine WBC (0-5) /hpf Urine WBC Clumps (None) /hpf Ur Squamous Epith Cells (0-4) /hpf Hyaline Casts (0-2) /lpf 02/17/19 02/17/19 02/17/19 Range/Units 16:38 18:45 20:05 WBC (3.8-10.6) k/uL RBC (3.80-5.40) m/uL Hgb (11.4-16.0) gm/dL Hct (34.0-46.0) % MCV (80.0-100.0) fL MCH (25.0-35.0) pg MCHC (31.0-37.0) g/dL RDW (11.5-15.5) % Plt Count (150-450) k/uL Neutrophils % % Lymphocytes % % Monocytes % % Eosinophils % % Basophils % % Neutrophils # (1.3-7.7) k/uL Lymphocytes # (1.0-4.8) k/uL Monocytes # (0-1.0) k/uL Eosinophils # (0-0.7) k/uL Basophils # (0-0.2) k/uL Anisocytosis PT (9.0-12.0) sec INR (<1.2) APTT (22.0-30.0) sec Sodium (137-145) mmol/L Potassium (3.5-5.1) mmol/L Chloride (98-107) mmol/L Carbon Dioxide (22-30) mmol/L Anion Gap mmol/L BUN (7-17) mg/dL Creatinine (0.52-1.04) mg/dL Est GFR (CKD-EPI)AfAm (>60 ml/min/1.73 sqM) Est GFR (CKD-EPI)NonAf (>60 ml/min/1.73 sqM) Glucose (74-99) mg/dL POC Glucose (mg/dL) 106 H (75-99) mg/dL POC Glu Custodial Worker ID Smith, Becki Lactic Ac Sepsis Rflx Y Plasma Lactic Acid Hayden 4.3 H* (0.7-2.0) mmol/L Calcium (8.4-10.2) mg/dL Total Bilirubin (0.2-1.3) mg/dL AST (14-36) U/L ALT (9-52) U/L Alkaline Phosphatase (38-126) U/L Creatine Kinase (30-135) U/L Troponin I (0.000-0.034) ng/mL NT-Pro-B Natriuret Pep pg/mL Total Protein (6.3-8.2) g/dL Albumin (3.5-5.0) g/dL Lipase (23-300) U/L TSH Urine Color Urine Appearance (Clear) Urine pH (5.0-8.0) Ur Specific [place] (1.001-1.035) Urine Protein (Negative) Urine Glucose (UA) (Negative) Urine Ketones (Negative) Urine Blood (Negative) Urine Nitrite (Negative) Urine Bilirubin (Negative) Urine Urobilinogen (<2.0) mg/dL Ur Leukocyte Esterase (Negative) Urine RBC (0-5) /hpf Urine WBC (0-5) /hpf Urine WBC Clumps (None) /hpf Ur Squamous Epith Cells (0-4) /hpf Hyaline Casts (0-2) /lpf 02/17/19 02/17/19 02/17/19 Range/Units 20:27 21:00 23:32 WBC (3.8-10.6) k/uL RBC (3.80-5.40) m/uL Hgb (11.4-16.0) gm/dL Hct (34.0-46.0) % MCV (80.0-100.0) fL MCH (25.0-35.0) pg MCHC (31.0-37.0) g/dL RDW (11.5-15.5) % Plt Count (150-450) k/uL Neutrophils % % Lymphocytes % % Monocytes % % Eosinophils % % Basophils % % Neutrophils # (1.3-7.7) k/uL Lymphocytes # (1.0-4.8) k/uL Monocytes # (0-1.0) k/uL Eosinophils # (0-0.7) k/uL Basophils # (0-0.2) k/uL Anisocytosis PT (9.0-12.0) sec INR (<1.2) APTT (22.0-30.0) sec Sodium (137-145) mmol/L Potassium (3.5-5.1) mmol/L Chloride (98-107) mmol/L Carbon Dioxide (22-30) mmol/L Anion Gap mmol/L BUN (7-17) mg/dL Creatinine (0.52-1.04) mg/dL Est GFR (CKD-EPI)AfAm (>60 ml/min/1.73 sqM) Est GFR (CKD-EPI)NonAf (>60 ml/min/1.73 sqM) Glucose (74-99) mg/dL POC Glucose (mg/dL) 76 (75-99) mg/dL POC Glu Custodial Worker ID Jayashree Darnell Lactic Ac Sepsis Rflx Y Plasma Lactic Acid Hayden (0.7-2.0) mmol/L Calcium (8.4-10.2) mg/dL Total Bilirubin (0.2-1.3) mg/dL AST (14-36) U/L ALT (9-52) U/L Alkaline Phosphatase (38-126) U/L Creatine Kinase (30-135) U/L Troponin I 0.058 H* (0.000-0.034) ng/mL NT-Pro-B Natriuret Pep pg/mL Total Protein (6.3-8.2) g/dL Albumin (3.5-5.0) g/dL Lipase (23-300) U/L TSH Urine Color Urine Appearance (Clear) Urine pH (5.0-8.0) Ur Specific [place] (1.001-1.035) Urine Protein (Negative) Urine Glucose (UA) (Negative) Urine Ketones (Negative) Urine Blood (Negative) Urine Nitrite (Negative) Urine Bilirubin (Negative) Urine Urobilinogen (<2.0) mg/dL Ur Leukocyte Esterase (Negative) Urine RBC (0-5) /hpf Urine WBC (0-5) /hpf Urine WBC Clumps (None) /hpf Ur Squamous Epith Cells (0-4) /hpf Hyaline Casts (0-2) /lpf 02/17/19 02/18/19 02/18/19 Range/Units 23:32 00:09 01:58 WBC (3.8-10.6) k/uL RBC (3.80-5.40) m/uL Hgb (11.4-16.0) gm/dL Hct (34.0-46.0) % MCV (80.0-100.0) fL MCH (25.0-35.0) pg MCHC (31.0-37.0) g/dL RDW (11.5-15.5) % Plt Count (150-450) k/uL Neutrophils % % Lymphocytes % % Monocytes % % Eosinophils % % Basophils % % Neutrophils # (1.3-7.7) k/uL Lymphocytes # (1.0-4.8) k/uL Monocytes # (0-1.0) k/uL Eosinophils # (0-0.7) k/uL Basophils # (0-0.2) k/uL Anisocytosis PT (9.0-12.0) sec INR (<1.2) APTT (22.0-30.0) sec Sodium (137-145) mmol/L Potassium (3.5-5.1) mmol/L Chloride (98-107) mmol/L Carbon Dioxide (22-30) mmol/L Anion Gap mmol/L BUN (7-17) mg/dL Creatinine (0.52-1.04) mg/dL Est GFR (CKD-EPI)AfAm (>60 ml/min/1.73 sqM) Est GFR (CKD-EPI)NonAf (>60 ml/min/1.73 sqM) Glucose (74-99) mg/dL POC Glucose (mg/dL) 80 (75-99) mg/dL POC Glu Custodial Worker ID Reckart, Jayashree Lactic Ac Sepsis Rflx Y Plasma Lactic Acid Hayden 2.1 H* (0.7-2.0) mmol/L Calcium (8.4-10.2) mg/dL Total Bilirubin (0.2-1.3) mg/dL AST (14-36) U/L ALT (9-52) U/L Alkaline Phosphatase (38-126) U/L Creatine Kinase (30-135) U/L Troponin I (0.000-0.034) ng/mL NT-Pro-B Natriuret Pep pg/mL Total Protein (6.3-8.2) g/dL Albumin (3.5-5.0) g/dL Lipase (23-300) U/L TSH Urine Color Urine Appearance (Clear) Urine pH (5.0-8.0) Ur Specific [place] (1.001-1.035) Urine Protein (Negative) Urine Glucose (UA) (Negative) Urine Ketones (Negative) Urine Blood (Negative) Urine Nitrite (Negative) Urine Bilirubin (Negative) Urine Urobilinogen (<2.0) mg/dL Ur Leukocyte Esterase (Negative) Urine RBC (0-5) /hpf Urine WBC (0-5) /hpf Urine WBC Clumps (None) /hpf Ur Squamous Epith Cells (0-4) /hpf Hyaline Casts (0-2) /lpf 02/18/19 02/18/19 02/18/19 Range/Units 03:19 05:12 05:12 WBC 6.7 (3.8-10.6) k/uL RBC 3.62 L (3.80-5.40) m/uL Hgb 10.5 L (11.4-16.0) gm/dL Hct 32.6 L (34.0-46.0) % MCV 90.0 (80.0-100.0) fL MCH 29.0 (25.0-35.0) pg MCHC 32.3 (31.0-37.0) g/dL RDW 16.5 H (11.5-15.5) % Plt Count 162 (150-450) k/uL Neutrophils % 77 % Lymphocytes % 15 % Monocytes % 5 % Eosinophils % 0 % Basophils % 1 % Neutrophils # 5.1 (1.3-7.7) k/uL Lymphocytes # 1.0 (1.0-4.8) k/uL Monocytes # 0.3 (0-1.0) k/uL Eosinophils # 0.0 (0-0.7) k/uL Basophils # 0.0 (0-0.2) k/uL Anisocytosis Slight PT (9.0-12.0) sec INR (<1.2) APTT (22.0-30.0) sec Sodium 132 L (137-145) mmol/L Potassium 3.4 L (3.5-5.1) mmol/L Chloride 96 L (98-107) mmol/L Carbon Dioxide 28 (22-30) mmol/L Anion Gap 8 mmol/L BUN 32 H (7-17) mg/dL Creatinine 1.06 H (0.52-1.04) mg/dL Est GFR (CKD-EPI)AfAm 62 (>60 ml/min/1.73 sqM) Est GFR (CKD-EPI)NonAf 54 (>60 ml/min/1.73 sqM) Glucose 81 (74-99) mg/dL POC Glucose (mg/dL) (75-99) mg/dL POC Glu Custodial Worker ID Lactic Ac Sepsis Rflx Plasma Lactic Acid Hayden 1.5 (0.7-2.0) mmol/L Calcium 6.6 L (8.4-10.2) mg/dL Total Bilirubin (0.2-1.3) mg/dL AST (14-36) U/L ALT (9-52) U/L Alkaline Phosphatase (38-126) U/L Creatine Kinase (30-135) U/L Troponin I (0.000-0.034) ng/mL NT-Pro-B Natriuret Pep pg/mL Total Protein (6.3-8.2) g/dL Albumin (3.5-5.0) g/dL Lipase (23-300) U/L TSH Urine Color Urine Appearance (Clear) Urine pH (5.0-8.0) Ur Specific [place] (1.001-1.035) Urine Protein (Negative) Urine Glucose (UA) (Negative) Urine Ketones (Negative) Urine Blood (Negative) Urine Nitrite (Negative) Urine Bilirubin (Negative) Urine Urobilinogen (<2.0) mg/dL Ur Leukocyte Esterase (Negative) Urine RBC (0-5) /hpf Urine WBC (0-5) /hpf Urine WBC Clumps (None) /hpf Ur Squamous Epith Cells (0-4) /hpf Hyaline Casts (0-2) /lpf 02/18/19 02/18/19 02/18/19 Range/Units 05:12 06:01 09:59 WBC (3.8-10.6) k/uL RBC (3.80-5.40) m/uL Hgb (11.4-16.0) gm/dL Hct (34.0-46.0) % MCV (80.0-100.0) fL MCH (25.0-35.0) pg MCHC (31.0-37.0) g/dL RDW (11.5-15.5) % Plt Count (150-450) k/uL Neutrophils % % Lymphocytes % % Monocytes % % Eosinophils % % Basophils % % Neutrophils # (1.3-7.7) k/uL Lymphocytes # (1.0-4.8) k/uL Monocytes # (0-1.0) k/uL Eosinophils # (0-0.7) k/uL Basophils # (0-0.2) k/uL Anisocytosis PT (9.0-12.0) sec INR (<1.2) APTT (22.0-30.0) sec Sodium (137-145) mmol/L Potassium (3.5-5.1) mmol/L Chloride (98-107) mmol/L Carbon Dioxide (22-30) mmol/L Anion Gap mmol/L BUN (7-17) mg/dL Creatinine (0.52-1.04) mg/dL Est GFR (CKD-EPI)AfAm (>60 ml/min/1.73 sqM) Est GFR (CKD-EPI)NonAf (>60 ml/min/1.73 sqM) Glucose (74-99) mg/dL POC Glucose (mg/dL) 82 88 (75-99) mg/dL POC Glu Custodial Worker Jayashree Beauchamp Donna Lactic Ac Sepsis Rflx Plasma Lactic Acid Hayden (0.7-2.0) mmol/L Calcium (8.4-10.2) mg/dL Total Bilirubin (0.2-1.3) mg/dL AST (14-36) U/L ALT (9-52) U/L Alkaline Phosphatase (38-126) U/L Creatine Kinase (30-135) U/L Troponin I 0.065 H* (0.000-0.034) ng/mL NT-Pro-B Natriuret Pep pg/mL Total Protein (6.3-8.2) g/dL Albumin (3.5-5.0) g/dL Lipase (23-300) U/L TSH Urine Color Urine Appearance (Clear) Urine pH (5.0-8.0) Ur Specific [place] (1.001-1.035) Urine Protein (Negative) Urine Glucose (UA) (Negative) Urine Ketones (Negative) Urine Blood (Negative) Urine Nitrite (Negative) Urine Bilirubin (Negative) Urine Urobilinogen (<2.0) mg/dL Ur Leukocyte Esterase (Negative) Urine RBC (0-5) /hpf Urine WBC (0-5) /hpf Urine WBC Clumps (None) /hpf Ur Squamous Epith Cells (0-4) /hpf Hyaline Casts (0-2) /lpf 02/18/19 02/18/19 02/18/19 Range/Units 14:07 17:50 18:21 WBC (3.8-10.6) k/uL RBC (3.80-5.40) m/uL Hgb (11.4-16.0) gm/dL Hct (34.0-46.0) % MCV (80.0-100.0) fL MCH (25.0-35.0) pg MCHC (31.0-37.0) g/dL RDW (11.5-15.5) % Plt Count (150-450) k/uL Neutrophils % % Lymphocytes % % Monocytes % % Eosinophils % % Basophils % % Neutrophils # (1.3-7.7) k/uL Lymphocytes # (1.0-4.8) k/uL Monocytes # (0-1.0) k/uL Eosinophils # (0-0.7) k/uL Basophils # (0-0.2) k/uL Anisocytosis PT (9.0-12.0) sec INR (<1.2) APTT (22.0-30.0) sec Sodium (137-145) mmol/L Potassium (3.5-5.1) mmol/L Chloride (98-107) mmol/L Carbon Dioxide (22-30) mmol/L Anion Gap mmol/L BUN (7-17) mg/dL Creatinine (0.52-1.04) mg/dL Est GFR (CKD-EPI)AfAm (>60 ml/min/1.73 sqM) Est GFR (CKD-EPI)NonAf (>60 ml/min/1.73 sqM) Glucose (74-99) mg/dL POC Glucose (mg/dL) 94 92 (75-99) mg/dL POC Glu Custodial Worker ID Ev Delcid Paige Lactic Ac Sepsis Rflx Plasma Lactic Acid Hayden (0.7-2.0) mmol/L Calcium (8.4-10.2) mg/dL Total Bilirubin (0.2-1.3) mg/dL AST (14-36) U/L ALT (9-52) U/L Alkaline Phosphatase (38-126) U/L Creatine Kinase (30-135) U/L Troponin I (0.000-0.034) ng/mL NT-Pro-B Natriuret Pep pg/mL Total Protein (6.3-8.2) g/dL Albumin (3.5-5.0) g/dL Lipase (23-300) U/L TSH Urine Color Yellow Urine Appearance Clear (Clear) Urine pH 7.0 (5.0-8.0) Ur Specific [place] 1.024 (1.001-1.035) Urine Protein Trace H (Negative) Urine Glucose (UA) Negative (Negative) Urine Ketones Negative (Negative) Urine Blood Negative (Negative) Urine Nitrite Negative (Negative) Urine Bilirubin Negative (Negative) Urine Urobilinogen <2.0 (<2.0) mg/dL Ur Leukocyte Esterase Moderate H (Negative) Urine RBC <1 (0-5) /hpf Urine WBC 24 H (0-5) /hpf Urine WBC Clumps (None) /hpf Ur Squamous Epith Cells (0-4) /hpf Hyaline Casts (0-2) /lpf 02/19/19 02/19/19 02/19/19 Range/Units 02:06 06:33 10:48 WBC (3.8-10.6) k/uL RBC (3.80-5.40) m/uL Hgb (11.4-16.0) gm/dL Hct (34.0-46.0) % MCV (80.0-100.0) fL MCH (25.0-35.0) pg MCHC (31.0-37.0) g/dL RDW (11.5-15.5) % Plt Count (150-450) k/uL Neutrophils % % Lymphocytes % % Monocytes % % Eosinophils % % Basophils % % Neutrophils # (1.3-7.7) k/uL Lymphocytes # (1.0-4.8) k/uL Monocytes # (0-1.0) k/uL Eosinophils # (0-0.7) k/uL Basophils # (0-0.2) k/uL Anisocytosis PT (9.0-12.0) sec INR (<1.2) APTT (22.0-30.0) sec Sodium (137-145) mmol/L Potassium (3.5-5.1) mmol/L Chloride (98-107) mmol/L Carbon Dioxide (22-30) mmol/L Anion Gap mmol/L BUN (7-17) mg/dL Creatinine (0.52-1.04) mg/dL Est GFR (CKD-EPI)AfAm (>60 ml/min/1.73 sqM) Est GFR (CKD-EPI)NonAf (>60 ml/min/1.73 sqM) Glucose (74-99) mg/dL POC Glucose (mg/dL) 97 90 82 (75-99) mg/dL POC Glu Custodial Worker ANTONIETTA Darnell, Jayashree Darnell, Ev Antonio Lactic Ac Sepsis Rflx Plasma Lactic Acid Hayden (0.7-2.0) mmol/L Calcium (8.4-10.2) mg/dL Total Bilirubin (0.2-1.3) mg/dL AST (14-36) U/L ALT (9-52) U/L Alkaline Phosphatase (38-126) U/L Creatine Kinase (30-135) U/L Troponin I (0.000-0.034) ng/mL NT-Pro-B Natriuret Pep pg/mL Total Protein (6.3-8.2) g/dL Albumin (3.5-5.0) g/dL Lipase (23-300) U/L TSH Urine Color Urine Appearance (Clear) Urine pH (5.0-8.0) Ur Specific Loomis (1.001-1.035) Urine Protein (Negative) Urine Glucose (UA) (Negative) Urine Ketones (Negative) Urine Blood (Negative) Urine Nitrite (Negative) Urine Bilirubin (Negative) Urine Urobilinogen (<2.0) mg/dL Ur Leukocyte Esterase (Negative) Urine RBC (0-5) /hpf Urine WBC (0-5) /hpf Urine WBC Clumps (None) /hpf Ur Squamous Epith Cells (0-4) /hpf Hyaline Casts (0-2) /lpf Disposition Clinical Impression: Nausea and vomiting, Urinary tract infection, acute, Lactic acidosis, Hypoglycemia Disposition: ADMITTED IP TO THIS HOSP Condition: Stable Is patient prescribed a controlled substance at d/c from ED?: No Decision to Admit Reason: Admit from EC Decision Date: 02/17/19 Decision Time: 18:01
[2019-02-17] MEDS ORDERED: ONDANSETRON 4 MG/2 ML VIAL IVP STA (14:16)
[2019-02-17] MEDS ORDERED: SODIUM CHLORIDE 0.9% 500 ML 500 ML IV STA (14:16)
--- NOTE | 2019-02-17 15:08 | XR ---
EXAMINATION TYPE: XR chest 2V DATE OF EXAM: 02/17/2019 COMPARISON: 10/23/2018 INDICATION: Weakness TECHNIQUE: Frontal and lateral views of the chest are obtained. FINDINGS: The heart size is mildly prominent. The pulmonary vasculature is normal. Small right pleural effusion is present. Mild infiltrates in the right middle lobe. IMPRESSION: 1. Recurrent or residual infiltrate within the right middle lobe with a small right pleural effusion.
[2019-02-17 15:54] LABS: ALT 32 U/L (9-52); AST 56 U/L (14-36); African American GFR (CKD) 53 (>60 ml/min/1.73 sqM); Albumin 2.2 g/dL (3.5-5.0); Alkaline Phosphatase 124 U/L (38-126); Anion Gap 9 mmol/L; Blood Urea Nitrogen 35 mg/dL (7-17); Calcium 7.1 mg/dL (8.4-10.2); Carbon Dioxide 30 mmol/L (22-30); Chloride 94 mmol/L (98-107); Creatine Kinase 59 U/L (30-135); Glucose 66 mg/dL (74-99); Sodium 133 mmol/L (137-145); Total Protein 5.5 g/dL (6.3-8.2)
[2019-02-17 15:55] LABS: Potassium 4.8 mmol/L (3.5-5.1)
[2019-02-17 16:08] LABS: Appearance,Urine Turbid (Clear); Bilirubin,Urine Negative (Negative); Blood,Urine Small (Negative); Color,Urine Light Red; Glucose,Urine (UA) Negative (Negative); Hyaline Casts,Urine 76 /lpf (0-2); Ketones,Urine Negative (Negative); Leukocyte Esterase,Urine Large (Negative); Nitrite,Urine Negative (Negative); PH, Urine 5.5 (5.0-8.0); Protein,Urine 2+ (Negative); Specific Gravity,Urine 1.019 (1.001-1.035); Squamous Epithelial Cell,Urine 9 /hpf (0-4); Urobilinogen,Urine <2.0 mg/dL (<2.0); WBC,Urine >182 /hpf (0-5)
[2019-02-17 16:39] LABS: Anisocytosis Slight; Basophils % (A) 0 %; Eosinophils % (A) 0 %; HGB 11.7 gm/dL (11.4-16.0); Lymphocytes # (A) 0.9 k/uL (1.0-4.8); Lymphocytes % (A) 8 %; MCH 29.3 pg (25.0-35.0); MCHC 34.2 g/dL (31.0-37.0); MCV 85.6 fL (80.0-100.0); Mean Platelet Volume 8.2; Monocytes # (A) 0.4 k/uL (0-1.0); Monocytes % (A) 4 %; Neutrophils # (A) 9.3 k/uL (1.3-7.7); Neutrophils % (A) 87 %; Platelet Count 221 k/uL (150-450); RBC 3.97 m/uL (3.80-5.40); RDW 16.5 % (11.5-15.5); WBC 10.7 k/uL (3.8-10.6)
[2019-02-17 16:42] LABS: INR 1.4 (<1.2); Prothrombin Time 13.9 sec (9.0-12.0)
--- NOTE | 2019-02-17 17:25 | CT ---
EXAMINATION TYPE: CT abdomen pelvis w con DATE OF EXAM: 02/17/2019 COMPARISON: None HISTORY: abdominal pain, vomiting CT DLP: 2228.1 mGycm Automated exposure control for dose reduction was used. TECHNIQUE: Helical acquisition of images was performed from the lung bases through the pelvis. CONTRAST: Performed without Oral Contrast and with IV Contrast, patient injected with 80 mL of Isovue 300. FINDINGS: There is moderate size right pleural effusion. There is some atelectasis right lung base. Heart is en larged. There is no pericardial effusion. There is mild atelectasis left lung base. Liver shows no focal defect. Gallbladder is mildly dilated and measures 4.5 cm. Spleen is intact. Sto mach is intact. There is no evidence of pancreatic mass. The common bile duct is mildly dilated and m easures 1.5 cm. Intrahepatic bile ducts are not dilated. There is no adrenal mass. Kidneys show satisfactory contrast opacification. There is no hydronephrosi s. Ureters are not dilated. There are multiple calcifications in both kidneys. These are probably vas cular. There is no retroperitoneal adenopathy. Abdominal aorta is atheromatous. Bladder is almost emp ty. There is small amount of fluid in the pelvis in the presacral region. There is no ascites. There is no sign of thickened appendix. Appendix appears normal. There is no evidence of free air. There is no sign of a bowel obstruction. There is a mild degenerati ve first-degree L3-4 spondylolisthesis. There is some degenerative disc space narrowing at L3-4. Ther e is no lumbar compression fracture. Bony pelvis appears intact.. There is no inguinal hernia. IMPRESSION: ATHEROSCLEROTIC VASCULAR DISEASE. RIGHT PLEURAL EFFUSION WITH BASILAR PULMONARY ATELECTASIS. THIS COULD RELATE TO CONGESTIVE HEART FAIL URE. DILATED COMMON BILE DUCT AND GALLBLADDER PROBABLY DUE TO CHRONIC GALLBLADDER DYSFUNCTION. MILD FLUID IN THE PELVIS IN THE PRESACRAL REGION OF UNCERTAIN SIGNIFICANCE. NO DEFINITE INFLAMMATORY PROCESS SEE N OF THE RECTOSIGMOID COLON.
[2019-02-17] MEDS ORDERED: DEXTROSE 50% SYRINGE 50 ML IVP STA (17:33)
[2019-02-17] MEDS ORDERED: NALOXONE 0.4 MG/ML 1 ML VIAL IV PRN (18:01)
[2019-02-17] MEDS ORDERED: ACETAMINOPHEN TAB 325 MG TAB PO PRN (18:03)
[2019-02-17] MEDS ORDERED: ALBUTEROL NEBULIZED 2.5 MG/3 ML INHALATION PRN (18:03)
[2019-02-17 18:48] LABS: Glucose,Whole Blood 106 mg/dL (75-99)
[2019-02-17] MEDS ORDERED: SODIUM CHLORIDE 0.9% 1,000 ML IV SCH (19:00)
[2019-02-17] MEDS: MIDODRINE 5 MG TAB PO SCH ×2 (19:41→20:13)
[2019-02-17 20:00] VITALS: BMI 39.9
[2019-02-17] MEDS: ONDANSETRON 4 MG/2 ML VIAL IVP PRN (20:12)
[2019-02-17] MEDS: GABAPENTIN 100 MG CAP PO SCH (20:13)
[2019-02-17] MEDS: METOPROLOL TARTRATE 12.5 MG TAB PO SCH (20:13)
[2019-02-17] MEDS: SODIUM BICARBONATE TAB 650 MG TAB PO SCH (20:16)
[2019-02-17] MEDS: CINACALCET 30 MG TAB PO SCH (20:17)
[2019-02-17] MEDS: POTASSIUM CHLORIDE ER 20 MEQ TAB.ER PO SCH (20:18)
[2019-02-17] MEDS: FERROUS SULFATE 325 MG TAB PO SCH (20:19)
[2019-02-17] MEDS: ATORVASTATIN 80 MG TAB PO SCH (20:19)
[2019-02-17 21:01] LABS: Glucose,Whole Blood 76 mg/dL (75-99)
[2019-02-17] MEDS ORDERED: SODIUM CHLORIDE 0.9% 1,000 ML IV ONE (21:38)
--- NOTE | 2019-02-17 21:44 | US ---
EXAMINATION TYPE: US gallbladder DATE OF EXAM: 02/17/2019 COMPARISON: CT 2019 CLINICAL HISTORY: abd pain. Abdominal pain x couple weeks per patient. Nausea/vomiting. HTN. EXAM MEASUREMENTS: Liver Length: 15.8 cm Gallbladder Wall: 0.32 cm CBD: 1.03 cm Right Kidney: 9.9 x 5.3 x 5.2 cm Pancreas: obscured by overlying bowel gas Liver: appears to be wnl Gallbladder: Appears distended, transverse measurement: 4.4 cm. Internal echoes seen within the gall bladder. Evidence for sonographic Canas's sign: No CBD: appears dilated. Limited distally due to gas. Right Kidney: ?Normal tissue vs. hypoechoic area upper pole measurin.6 x 1.9 x 2.7 cm. *There appears to be a right-sided pleural effusion. IMPRESSION: Dilated gallbladder. Common bile duct measures 1 cm but no dilation of the intrahepatic b ile ducts. This could relate to chronic gallbladder dysfunction. No definite gallstones. No free flui d.
[2019-02-17] MEDS: DEXTROSE 5%-0.9% NACL 1,000 ML IV SCH (21:54)
[2019-02-18] MEDS: POTASSIUM CHLORIDE ER 20 MEQ TAB.ER PO SCH ×7 (00:01→22:55)
[2019-02-18 02:00] LABS: Glucose,Whole Blood 80 mg/dL (75-99)
[2019-02-18 06:03] LABS: Glucose,Whole Blood 82 mg/dL (75-99)
[2019-02-18 06:25] LABS: Potassium 3.4 mmol/L (3.5-5.1)
[2019-02-18 06:31] LABS: Calcium 6.6 mg/dL (8.4-10.2)
[2019-02-18 06:45] LABS: Anisocytosis Slight; Basophils % (A) 1 %; Eosinophils % (A) 0 %; HCT 32.6 % (34.0-46.0); HGB 10.5 gm/dL (11.4-16.0); Lymphocytes % (A) 15 %; MCHC 32.3 g/dL (31.0-37.0); Mean Platelet Volume 8.6; Monocytes # (A) 0.3 k/uL (0-1.0); Monocytes % (A) 5 %; Neutrophils # (A) 5.1 k/uL (1.3-7.7); Neutrophils % (A) 77 %; Platelet Count 162 k/uL (150-450); RBC 3.62 m/uL (3.80-5.40); RDW 16.5 % (11.5-15.5); WBC 6.7 k/uL (3.8-10.6)
[2019-02-18] MEDS ORDERED: LORazepam 0.5 MG TAB PO SCH (08:00)
[2019-02-18] MEDS ORDERED: FUROSEMIDE 40 MG TAB PO SCH (08:00)
[2019-02-18] MEDS ORDERED: METOLAZONE 2.5 MG TAB PO SCH (08:00)
[2019-02-18] MEDS ORDERED: Potassium Replacement Protocol 1 EACH MISC MISCELLANE PRN (08:06)
[2019-02-18] MEDS: GABAPENTIN 100 MG CAP PO SCH ×2 (09:22→21:20)
[2019-02-18] MEDS: FERROUS SULFATE 325 MG TAB PO SCH ×2 (09:22→15:40)
[2019-02-18] MEDS: CINACALCET 30 MG TAB PO SCH ×2 (09:23→15:40)
[2019-02-18] MEDS: MIDODRINE 5 MG TAB PO SCH ×3 (09:23→21:20)
[2019-02-18] MEDS: METOPROLOL TARTRATE 12.5 MG TAB PO SCH ×2 (09:23→15:40)
[2019-02-18] MEDS: SODIUM BICARBONATE TAB 650 MG TAB PO SCH ×2 (09:23→15:40)
[2019-02-18] MEDS: DEXTROSE 5%-0.9% NACL 1,000 ML IV SCH ×2 (09:24→17:18)
[2019-02-18] MEDS: PANTOPRAZOLE 40 MG TABLET PO SCH (09:24)
[2019-02-18] MEDS: ONDANSETRON 4 MG/2 ML VIAL IVP PRN (09:25)
[2019-02-18 10:01] LABS: Glucose,Whole Blood 88 mg/dL (75-99)
[2019-02-18] MEDS ORDERED: SODIUM CHLORIDE 0.9% 1,000 ML IV SCH (13:00)
[2019-02-18] MEDS: AMMONIUM LACTATE 12% LOTION 225 GM BTL TOPICAL SCH (13:32)
--- NOTE | 2019-02-18 14:18 | P.HPIM ---
History of Present Illness 68-year-old female was admitted after sure transferred from extended care facility for nausea vomiting generalized weakness. Patient does have history of atrial fibrillation coronary artery disease, I do not know her ejection fraction patient is on Lasix patient is hyponatremic dehydration may be contributing to her symptoms and patient was started on IV fluids we'll repeat the basic metabolic profile tomorrow. Patient is on Protonix at this time ultrasound of the gallbladder did showdilated gallbladder with dilated common bile duct gastroenterology will evaluate the patient patient doesn't have right upper quadrant abdominal pain Canas's sign is negative. Patient does have minimally elevated troponin of 0.051 probably secondary to acute renal failure. Patient denied any chest pain. Patient is hypotensive as well diuretic therapy will be discontinued Review of Systems poor historian unable to get much of the history from the patient is to the review of systems is negative. Past Medical History Past Medical History: Atrial Fibrillation, Coronary Artery Disease (CAD), Chest Pain / Angina, COPD, GI Bleed, Hyperlipidemia, Hypertension, Myocardial Infarction (non Q-wave), Osteoarthritis (OA), Vascular Disorder Additional Past Medical History / Comment(s): UTERINE CANCER. LT CATARACT, morbid obesity. recent GIB 10/07/18 Last Myocardial Infarction Date:: 2003 History of Any Multi-Drug Resistant Organisms: None Reported Date of last positivie culture/infection: 10/15/18 MDRO Source:: MRSA KNEE Past Surgical History: Coronary Bypass/CABG, Heart Catheterization With Stent, Hysterectomy, Orthopedic Surgery Additional Past Surgical History / Comment(s): UZMA KNEE REPLACMENTS, RT ANKLE- METAL PLATE, RT ARM SX REPAIR D/T LACERATION. RT THUMB TENDON REPAIR," LT FOOT GREAT TOE BONE REMOVED". Off-pump 3 vessel CABG 08/23/2018 Past Anesthesia/Blood Transfusion Reactions: Blood Transfusion Reaction Additional Past Anesthesia/Blood Transfusion Reaction / Comment(s): PAST BLOOD [id number] Date of Last Stent Placement:: 2003 Past Psychological History: No Psychological Hx Reported Smoking Status: Former smoker Past Alcohol Use History: None Reported Past Drug Use History: None Reported - Past Family History Mother Family Medical History: No Reported History Father History Unknown: Yes Medications and Allergies Home Medications Medication Instructions Recorded Confirmed Type Cholecalciferol (Vitamin D3) 2,000 unit PO DAILY@1700 08/15/18 02/17/19 History [Vitamin D3] Acetaminophen Tab [Tylenol] 650 mg PO Q4HR PRN tab 08/28/18 02/17/19 Rx Magnesium Hydroxide [Milk of 2,400 mg PO DAILY PRN ml 08/28/18 02/17/19 Rx Magnesia Concentrate] Atorvastatin [Lipitor] 80 mg PO HS@2100 09/21/18 02/17/19 History Bisacodyl [Dulcolax] 10 mg RECTAL DAILY PRN 09/21/18 02/17/19 History Pantoprazole [Protonix] 40 mg PO DAILY@0800 09/21/18 02/17/19 History Potassium Chloride ER [K-Dur 20] 20 meq PO Q6H 09/21/18 02/17/19 History Sennosides-Docusate Sodium 2 tab PO HS PRN 09/21/18 02/17/19 History [Senokot-S] Sodium Bicarbonate Tab 650 mg PO BID@0800,1700 09/21/18 02/17/19 History Albuterol Nebulized [Ventolin 2.5 mg INHALATION RT-Q4H PRN 02/17/19 02/17/19 History Nebulized] Albuterol Nebulized [Ventolin 2.5 mg INHALATION RT-QID 02/17/19 02/17/19 History Nebulized] Ammonium Lactate Lotion 1 applic TOPICAL DAILY 02/17/19 02/17/19 History [Lac-Hydrin 12% Lotion] Benzocaine/Menthol Lozeng [Cepacol 1 lozenge MUCOUS MEM Q2H PRN 02/17/19 02/17/19 History lozenge] Cinacalcet HCl [Sensipar] 60 mg PO BID@0800,1700 02/17/19 02/17/19 History Ferrous Sulfate [Iron (65 MG 325 mg PO BID@0800,1700 02/17/19 02/17/19 History Elemental)] Furosemide [Lasix] 40 mg PO BID@0800,1400 02/17/19 02/17/19 History Gabapentin [Neurontin] 100 mg PO BID 02/17/19 02/17/19 History LORazepam [Ativan] 0.5 mg PO DAILY@0800 02/17/19 02/17/19 History Levofloxacin [Levaquin] 500 mg PO DAILY@0800 02/17/19 02/17/19 History Loperamide HCl [Imodium A-D] 2 - 4 mg PO QID PRN 02/17/19 02/17/19 History Mag Hydrox/Al Hydrox/Simeth 15 ml PO QID PRN 02/17/19 02/17/19 History [Maalox] Magnesium Oxide 240mg 240 mg PO DAILY@1700 02/17/19 02/17/19 History Metolazone [Zaroxolyn] 2.5 mg PO DAILY@0800 02/17/19 02/17/19 History Metoprolol Tartrate [Lopressor] 12.5 mg PO BID@0800,1700 02/17/19 02/17/19 History Midodrine HCl [ProAmantine] 2.5 mg PO TID@0800,1400,2200 02/17/19 02/17/19 Hist ory Na Phos,M-B/Na Phos,Di-Ba [Fleet 133 ml RECTAL ONCE PRN 02/17/19 02/17/19 History Adult] guaiFENesin [Mucinex] 600 mg PO BID@0800,2100 02/17/19 02/17/19 History Allergies Allergy/AdvReac Type Severity Reaction Status Date / Time No Known Allergies Allergy Verified 02/17/19 13:45 Physical Exam Vitals: Vital Signs Temp Pulse Pulse Resp BP BP Pulse Ox 02/18/19 12:00 98.2 F 56 L 16 115/51 99 02/18/19 08:00 97.3 F L 60 16 111/53 100 02/18/19 07:48 95 02/18/19 04:00 97.9 F 56 L 17 94/52 96 02/17/19 23:51 60 17 118/56 98 02/17/19 19:49 97.9 F 77 18 126/53 97 02/17/19 18:00 75 17 102/57 96 02/17/19 17:00 73 18 91/64 02/17/19 16:00 80 18 111/62 86 L 02/17/19 15:00 86 110/64 Intake and Output 02/17/19 02/18/19 02/18/19 22:59 06:59 14:59 Intake Total 1500 1120 Balance 1500 1120 Intake: IV 800 Dextrose 5%-0.9% NaCl 1, 800 000 ml @ 100 mls/hr IV . Q10H JUANJOSE Rx#:[id number] Intake, IV Titration 1500 Amount Dextrose 5%-0.9% NaCl 1, 500 000 ml @ 100 mls/hr IV . Q10H JUANJOSE Rx#:[id number] Sodium Chloride 0.9% 1, 1000 000 ml @ 999 mls/hr IV . Q1H1M ONE Rx#:[id number] Oral 320 Other: # Voids 1 # Bowel Movements 1 Weight 97.522 kg PHYSICAL EXAMINATION: GENERAL: not in any acute distress. Well developed, well nourished. overall sick looking female HEENT: Pupils are round and equally reacting to light. EOMI. No scleral icterus. No conjunctival pallor. Normocephalic, atraumatic. No pharyngeal erythema. No thyromegaly. CARDIOVASCULAR: S1 and S2 present. No murmurs, rubs, or gallops. PULMONARY: Chest is clear to auscultation, no wheezing or crackles. ABDOMEN: Soft, nontender, nondistended, normoactive bowel sounds. No palpable organomegaly. MUSCULOSKELETAL: No joint swelling or deformity. EXTREMITIES: No cyanosis, clubbing, or pedal edema. NEUROLOGICAL: Gross neurological examination did not reveal any focal deficits. patient does have significant generalized weakness SKIN: No rashes. Results CBC & Chem 7: 02/18/19 05:12 02/18/19 05:12 Labs: Abnormal Lab Results - Last 24 Hours (Table) 02/17/19 02/17/19 02/17/19 Range/Units 15:30 15:30 15:45 WBC (3.8-10.6) k/uL RBC (3.80-5.40) m/uL Hgb (11.4-16.0) gm/dL Hct (34.0-46.0) % RDW (11.5-15.5) % Neutrophils # (1.3-7.7) k/uL Lymphocytes # (1.0-4.8) k/uL PT (9.0-12.0) sec INR (<1.2) Sodium 133 L (137-145) mmol/L Potassium (3.5-5.1) mmol/L Chloride 94 L (98-107) mmol/L BUN 35 H (7-17) mg/dL Creatinine 1.21 H (0.52-1.04) mg/dL Glucose 66 L (74-99) mg/dL POC Glucose (mg/dL) (75-99) mg/dL Plasma Lactic Acid Hayden (0.7-2.0) mmol/L Calcium 7.1 L (8.4-10.2) mg/dL AST 56 H (14-36) U/L Troponin I 0.059 H* (0.000-0.034) ng/mL Total Protein 5.5 L (6.3-8.2) g/dL Albumin 2.2 L (3.5-5.0) g/dL Lipase <10 L (23-300) U/L Urine Appearance Turbid H (Clear) Urine Protein 2+ H (Negative) Urine Blood Small H (Negative) Ur Leukocyte Esterase Large H (Negative) Urine WBC >182 H (0-5) /hpf Urine WBC Clumps Many H (None) /hpf Ur Squamous Epith Cells 9 H (0-4) /hpf Hyaline Casts 76 H (0-2) /lpf 02/17/19 02/17/19 02/17/19 Range/Units 16:18 16:18 16:18 WBC 10.7 H (3.8-10.6) k/uL RBC (3.80-5.40) m/uL Hgb (11.4-16.0) gm/dL Hct (34.0-46.0) % RDW 16.5 H (11.5-15.5) % Neutrophils # 9.3 H (1.3-7.7) k/uL Lymphocytes # 0.9 L (1.0-4.8) k/uL PT 13.9 H (9.0-12.0) sec INR 1.4 H (<1.2) Sodium (137-145) mmol/L Potassium (3.5-5.1) mmol/L Chloride (98-107) mmol/L BUN (7-17) mg/dL Creatinine (0.52-1.04) mg/dL Glucose (74-99) mg/dL POC Glucose (mg/dL) (75-99) mg/dL Plasma Lactic Acid Hayden 2.9 H* (0.7-2.0) mmol/L Calcium (8.4-10.2) mg/dL AST (14-36) U/L Troponin I (0.000-0.034) ng/mL Total Protein (6.3-8.2) g/dL Albumin (3.5-5.0) g/dL Lipase (23-300) U/L Urine Appearance (Clear) Urine Protein (Negative) Urine Blood (Negative) Ur Leukocyte Esterase (Negative) Urine WBC (0-5) /hpf Urine WBC Clumps (None) /hpf Ur Squamous Epith Cells (0-4) /hpf Hyaline Casts (0-2) /lpf 02/17/19 02/17/19 02/17/19 Range/Units 16:18 18:45 20:05 WBC (3.8-10.6) k/uL RBC (3.80-5.40) m/uL Hgb (11.4-16.0) gm/dL Hct (34.0-46.0) % RDW (11.5-15.5) % Neutrophils # (1.3-7.7) k/uL Lymphocytes # (1.0-4.8) k/uL PT (9.0-12.0) sec INR (<1.2) Sodium (137-145) mmol/L Potassium (3.5-5.1) mmol/L Chloride (98-107) mmol/L BUN (7-17) mg/dL Creatinine (0.52-1.04) mg/dL Glucose (74-99) mg/dL POC Glucose (mg/dL) 106 H (75-99) mg/dL Plasma Lactic Acid Hayden 4.3 H* (0.7-2.0) mmol/L Calcium (8.4-10.2) mg/dL AST (14-36) U/L Troponin I 0.051 H* (0.000-0.034) ng/mL Total Protein (6.3-8.2) g/dL Albumin (3.5-5.0) g/dL Lipase (23-300) U/L Urine Appearance (Clear) Urine Protein (Negative) Urine Blood (Negative) Ur Leukocyte Esterase (Negative) Urine WBC (0-5) /hpf Urine WBC Clumps (None) /hpf Ur Squamous Epith Cells (0-4) /hpf Hyaline Casts (0-2) /lpf 02/17/19 02/17/19 02/18/19 Range/Units 23:32 23:32 05:12 WBC (3.8-10.6) k/uL RBC 3.62 L (3.80-5.40) m/uL Hgb 10.5 L (11.4-16.0) gm/dL Hct 32.6 L (34.0-46.0) % RDW 16.5 H (11.5-15.5) % Neutrophils # (1.3-7.7) k/uL Lymphocytes # (1.0-4.8) k/uL PT (9.0-12.0) sec INR (<1.2) Sodium (137-145) mmol/L Potassium (3.5-5.1) mmol/L Chloride (98-107) mmol/L BUN (7-17) mg/dL Creatinine (0.52-1.04) mg/dL Glucose (74-99) mg/dL POC Glucose (mg/dL) (75-99) mg/dL Plasma Lactic Acid Hayden 2.1 H* (0.7-2.0) mmol/L Calcium (8.4-10.2) mg/dL AST (14-36) U/L Troponin I 0.058 H* (0.000-0.034) ng/mL Total Protein (6.3-8.2) g/dL Albumin (3.5-5.0) g/dL Lipase (23-300) U/L Urine Appearance (Clear) Urine Protein (Negative) Urine Blood (Negative) Ur Leukocyte Esterase (Negative) Urine WBC (0-5) /hpf Urine WBC Clumps (None) /hpf Ur Squamous Epith Cells (0-4) /hpf Hyaline Casts (0-2) /lpf 02/18/19 02/18/19 Range/Units 05:12 05:12 WBC (3.8-10.6) k/uL RBC (3.80-5.40) m/uL Hgb (11.4-16.0) gm/dL Hct (34.0-46.0) % RDW (11.5-15.5) % Neutrophils # (1.3-7.7) k/uL Lymphocytes # (1.0-4.8) k/uL PT (9.0-12.0) sec INR (<1.2) Sodium 132 L (137-145) mmol/L Potassium 3.4 L (3.5-5.1) mmol/L Chloride 96 L (98-107) mmol/L BUN 32 H (7-17) mg/dL Creatinine 1.06 H (0.52-1.04) mg/dL Glucose (74-99) mg/dL POC Glucose (mg/dL) (75-99) mg/dL Plasma Lactic Acid Hayden (0.7-2.0) mmol/L Calcium 6.6 L (8.4-10.2) mg/dL AST (14-36) U/L Troponin I 0.065 H* (0.000-0.034) ng/mL Total Protein (6.3-8.2) g/dL Albumin (3.5-5.0) g/dL Lipase (23-300) U/L Urine Appearance (Clear) Urine Protein (Negative) Urine Blood (Negative) Ur Leukocyte Esterase (Negative) Urine WBC (0-5) /hpf Urine WBC Clumps (None) /hpf Ur Squamous Epith Cells (0-4) /hpf Hyaline Casts (0-2) /lpf Thrombosis Risk Factor Assmnt - Choose All That Apply Any of the Below Risk Factors Present?: Yes Each Factor Represents 1 point: Obesity (BMI >25), Swollen legs (current) Other Risk Factors: Yes Each Risk Factor Represents 2 Points: Age 61-74 years Other congenital or acquired thrombophilia - If yes, enter type in comment: Yes Thrombosis Risk Factor Assessment Total Risk Factor Score: 4 Thrombosis Risk Factor Assessment Level: Moderate Risk Assessment and Plan Plan: -nausea vomiting: Secondary to gastritis or chronic gallbladder disease no evidence of acute cholecystitis. Patient is on Protonix and her nausea is improving -Hyponatremia hypotonic hyponatremia from diuretic therapy intravascular depl etion from nausea vomiting. Patient will be continued on IV fluids. Patient blood sugars were low because of the patient is on D5 normal saline which will be continued at 100 mL per hour. -Acute renal failure secondary to prerenal azotemia due to above-mentioned reasons, IV fluids as mentioned above -Possibility of urinary tract infection cannot be ruled out although patient's urine sample is contaminated urine sample I'll repeat another UA and leg at the urine cultures are continue with antibiotics -Metabolic and toxic encephalopathy from dehydration and possible urinary tract infection patient is a poor historian. -Coronary artery disease with the previous stents continue with beta louann -atrial fibrillation persistent presently rate controlled, patient is presently not on any anti-correlation possibly because of her fall risk -COPD without any clinic service -Hyperlipidemia 7 hypertension DVT prophylaxis: Subcutaneous heparin
[2019-02-18 14:27] LABS: Glucose,Whole Blood 94 mg/dL (75-99)
[2019-02-18 18:23] LABS: Glucose,Whole Blood 92 mg/dL (75-99)
[2019-02-18 18:23] LABS: Appearance,Urine Clear (Clear); Bilirubin,Urine Negative (Negative); Blood,Urine Negative (Negative); Color,Urine Yellow; Glucose,Urine (UA) Negative (Negative); Ketones,Urine Negative (Negative); Leukocyte Esterase,Urine Moderate (Negative); Nitrite,Urine Negative (Negative); Protein,Urine Trace (Negative); RBC,Urine <1 /hpf (0-5); Specific Gravity,Urine 1.024 (1.001-1.035); Urobilinogen,Urine <2.0 mg/dL (<2.0)
--- NOTE | 2019-02-18 20:52 | CONS ---
CONSULTATION DATE OF SERVICE: February 18, 2019. REQUESTING PHYSICIAN: Dr. Howard. REASON FOR CONSULTATION: Nausea, vomiting, and dilated CBD. HISTORY OF PRESENT ILLNESS: The patient is a 68-year-old white female who was transferred from an extended care facility. She has been complaining of generalized weakness, nausea, vomiting, abdominal pain on and off for the last few days duration. The patient is an extremely poor historian. Most of the history was obtained from the patient's nursing staff and the chart and the medical records. Since being in the hospital, as per the nursing staff, she did not have any episodes of nausea, vomiting. She was able to tolerate a regular diet reasonably well. As a part of workup she did have an ultrasound of the abdomen done that showed slightly distended gallbladder as well as a dilated common bile duct measuring 1.5 cm in size. The serum transaminases are within normal limits. On further questioning, the patient denies any abdominal pain currently. The patient was hospitalized in October of this year with an acute upper GI bleed. She had an upper endoscopy done by Dr. Lowe that showed some gastritis. She also had a colonoscopy during her last hospitalization that showed diverticulosis. PAST MEDICAL HISTORY: Significant for coronary artery disease, atrial fibrillation, congestive heart failure, history of VA in the past. Hypertension, hyperlipidemia, GI bleed, osteoarthritis. PAST SURGICAL HISTORY: Left-sided cataract surgery, hysterectomy, EGD, colonoscopy, coronary artery bypass surgery and right ankle surgery, bilateral knee replacement. MEDICATIONS: At home include vitamin D3, Tylenol, milk of magnesia, Lipitor, Dulcolax, Protonix, K- Dur, Senokot, Ventolin, magnesium oxide, metoprolol, Zaroxolyn, Levaquin, Ativan, Neurontin, Lasix, Sensipar, Cepacol lozenges, Fleet enema as needed and Mucinex. ALLERGIES: None. SOCIAL HISTORY: No smoking. No alcohol use. FAMILY HISTORY: Mother unremarkable. Father unknown. REVIEW OF SYSTEMS: CARDIOPULMONARY: She denies any chest pain or shortness of breath. GENITOURINARY: No dysuria or hematuria. MUSCULOSKELETAL: Chronic back pain and knee pain. ENT/vision unremarkable. CONSTITUTIONAL: No recent weight loss. No fever, chills, night sweats. Neurology unremarkable. Psychiatric anxiety and depression. PHYSICAL EXAMINATION: She appears comfortable. No apparent distress. VITAL SIGNS: Stable. Blood pressure is 115/51, pulse rate 56, temperature 98.2. HEENT examination unremarkable. Conjunctivae pink. Sclerae anicteric. Oral cavity no lesions. NECK: No JVD or lymph node enlargement. CHEST: Clear to auscultation. HEART: Regular rate and rhythm. ABDOMEN: Soft. Bowel sounds are positive. No organomegaly. EXTREMITIES no pedal edema. SKIN no rashes. NEURO she is oriented to name; not to place and time. She did have abdominal and pelvic CT scan at the time of admission to the hospital that showed evidence of dilated common bile duct and slightly distended gallbladder with a CBD measuring 1.5 cm in size. Right-sided small pleural effusion and atherosclerotic heart disease, vascular disease. She also had an ultrasound of the gallbladder done this morning that showed dilated gallbladder, common bile duct measuring 1 cm in size with no intrahepatic biliary dilation. No gallstones seen. IMPRESSION: 1. Nausea, vomiting for the last 2 days duration. The patient presently on IV Protonix 40 mg daily and states that she is feeling much better. No documented episodes of nausea and vomiting since being in the hospital. 2. Dilated CBD noted on ultrasound as well as CT scan of the abdomen with normal serum transaminases. Currently does not have any abdominal pain of unclear significance. 3. Slightly elevated troponin. Cardiology has been consulted. 4. Elevated BUN and creatinine, questionable chronic kidney disease. RECOMMENDATION: 1. Continue with Protonix 40 mg daily. 2. In regards to the dilated common bile duct and slightly dilated gallbladder which is of unclear significance, this can be evaluated on outpatient basis with an MRCP. 3. Continue with a heart healthy diet. 4. The patient was started on broad-spectrum antibiotics for possible urinary tract infection. 5. No plans on any endoscopy intervention at the present time. Thank you for this consultation. We will follow with you closely during hospital stay. MMODL / IJN: [id number] /
[2019-02-18] MEDS: HEPARIN SODIUM,PORCINE 5,000 UNIT/ML 1 ML VIAL SQ SCH (21:10)
[2019-02-18] MEDS: ATORVASTATIN 80 MG TAB PO SCH (21:20)
[2019-02-19 07:18] LABS: Glucose,Whole Blood 90 mg/dL (75-99)
[2019-02-19 07:18] LABS: Glucose,Whole Blood 97 mg/dL (75-99)
[2019-02-19] MEDS: DEXTROSE 5%-0.9% NACL 1,000 ML IV SCH (08:06)
[2019-02-19] MEDS: POTASSIUM CHLORIDE ER 20 MEQ TAB.ER PO SCH ×3 (09:23→16:01)
[2019-02-19] MEDS: HEPARIN SODIUM,PORCINE 5,000 UNIT/ML 1 ML VIAL SQ SCH (09:30)
[2019-02-19] MEDS: METOPROLOL TARTRATE 12.5 MG TAB PO SCH ×2 (09:30→16:00)
[2019-02-19] MEDS: CINACALCET 30 MG TAB PO SCH ×2 (09:30→16:00)
[2019-02-19] MEDS: GABAPENTIN 100 MG CAP PO SCH (09:30)
[2019-02-19] MEDS: MIDODRINE 5 MG TAB PO SCH ×2 (09:31→16:01)
[2019-02-19] MEDS: SODIUM BICARBONATE TAB 650 MG TAB PO SCH ×2 (09:31→16:01)
[2019-02-19] MEDS: FERROUS SULFATE 325 MG TAB PO SCH (09:31)
[2019-02-19] MEDS: PANTOPRAZOLE 40 MG TABLET PO SCH (09:32)
[2019-02-19] MEDS: AMMONIUM LACTATE 12% LOTION 225 GM BTL TOPICAL SCH (09:32)
[2019-02-19 10:50] LABS: Glucose,Whole Blood 82 mg/dL (75-99)
[2019-02-19 10:52] VITALS: RESP 18
[2019-02-19 13:51] VITALS: BP 99/52; PULSE 60; TEMP 98
--- NOTE | 2019-02-19 15:47 | P.DS ---
Providers Date of admission: 02/19/19 13:51 Expected date of discharge: 02/19/19 Attending physician: Christopher Almaraz Consults: 02/17/19 18:02 Consult Physician Urgent Consulting Provider: Linnea Olson Consult Reason/Comments: acute n/v Do you want consulting provider notified?: Yes Primary care physician: Vidal Wallaceqvi Hospital Course: Hospital course: Patient admitted with nausea vomiting. Settle down on his own. Feeling better. No fever no chills. Possibly gastritis. Seen by Sana Olson. From gastroenterology. Because patient has no abdominal pain computed tomography scan of the abdomen and abdominal ultrasound findings were felt to be noncontributory. Today-tolerating a diet. No further nausea vomiting.. Consultation: Dr. Natalia Olson from GI On examination. 98, 60, 18, 99/52, 100% on 2 L Laying in bed-comfortable Lungs-decreased breaths sounds Cardiovascular first seconds of present Abdomen soft nontender Psych-able to answer simple questions Investigations: Bun 32 creatinine 1.06 Baseline creatinine 0.83 on January 17 Abdominal ultrasound-suggestive of possible chronic gallbladder dysfunction Computed tomography scan of the abdomen showed dilated gallbladder and some dilatation of the CBD. Discharge diagnoses: -Acute renal failure, prerenal from nausea vomiting. -Possible acute gastritis with nausea vomiting -Coronary artery disease with history of coronary bypass -Chronic congestive heart failure from systolic dysfunction EF 35-40% from ischemic heart disease -Hypertensive heart disease -Persistent atrial fibrillation -Essential hypertension -Complete occlusion of the right internal carotid artery and 80% occlusion of the left internal carotid artery -COPD -Peripheral artery disease -Chronic venous insufficiency of lower extremity -Hyperparathyroidism Disposition: [facility] - Patient Condition at Discharge: Stable Plan - Discharge Summary Discharge Rx Participant: No New Discharge Prescriptions: New Cephalexin [Keflex] 250 mg PO Q8HR #9 capsule Continue Cholecalciferol (Vitamin D3) [Vitamin D3] 2,000 unit PO DAILY@1700 Magnesium Hydroxide [Milk of Magnesia Concentrate] 2,400 mg PO DAILY PRN ml PRN Reason: Constipation Acetaminophen Tab [Tylenol] 650 mg PO Q4HR PRN tab PRN Reason: Fever and/ or Moderate Pain Atorvastatin [Lipitor] 80 mg PO HS@2100 Bisacodyl [Dulcolax] 10 mg RECTAL DAILY PRN PRN Reason: Constipation Pantoprazole [Protonix] 40 mg PO DAILY@0800 Potassium Chloride ER [K-Dur 20] 20 meq PO Q6H Sodium Bicarbonate Tab 650 mg PO BID@0800,1700 Sennosides-Docusate Sodium [Senokot-S] 2 tab PO HS PRN PRN Reason: Constipation Ammonium Lactate Lotion [Lac-Hydrin 12% Lotion] 1 applic TOPICAL DAILY Na Phos,M-B/Na Phos,Di-Ba [Fleet Adult] 133 ml RECTAL ONCE PRN PRN Reason: Constipation Metoprolol Tartrate [Lopressor] 12.5 mg PO BID@0800,1700 Metolazone [Zaroxolyn] 2.5 mg PO DAILY@0800 Mag Hydrox/Al Hydrox/Simeth [Maalox] 15 ml PO QID PRN PRN Reason: Gi Upset Loperamide HCl [Imodium A-D] 2 - 4 mg PO QID PRN PRN Reason: Diarrhea Cinacalcet HCl [Sensipar] 60 mg PO BID@0800,1700 Benzocaine/Menthol Lozeng [Cepacol lozenge] 1 lozenge MUCOUS MEM Q2H PRN PRN Reason: Sore Throat Albuterol Nebulized [Ventolin Nebulized] 2.5 mg INHALATION RT-Q4H PRN PRN Reason: Shortness Of Breath Albuterol Nebulized [Ventolin Nebulized] 2.5 mg INHALATION RT-QID Magnesium Oxide 240mg 240 mg PO DAILY@1700 Ferrous Sulfate [Iron (65 MG Elemental)] 325 mg PO BID@0800,1700 LORazepam [Ativan] 0.5 mg PO DAILY@0800 #3 tab Gabapentin [Neurontin] 100 mg PO BID #6 cap Midodrine HCl [ProAmantine] 2.5 mg PO TID@0800,1400,2200 #9 tab Discontinued Levofloxacin [Levaquin] 500 mg PO DAILY@0800 guaiFENesin [Mucinex] 600 mg PO BID@0800,2100 Furosemide [Lasix] 40 mg PO BID@0800,1400 Discharge Medication List Cholecalciferol (Vitamin D3) [Vitamin D3] 2,000 unit PO DAILY@1700 08/15/18 [History] Acetaminophen Tab [Tylenol] 650 mg PO Q4HR PRN tab 08/28/18 [Rx] Magnesium Hydroxide [Milk of Magnesia Concentrate] 2,400 mg PO DAILY PRN ml 08/28/18 [Rx] Atorvastatin [Lipitor] 80 mg PO HS@2100 09/21/18 [History] Bisacodyl [Dulcolax] 10 mg RECTAL DAILY PRN 09/21/18 [History] Pantoprazole [Protonix] 40 mg PO DAILY@0800 09/21/18 [History] Potassium Chloride ER [K-Dur 20] 20 meq PO Q6H 09/21/18 [History] Sennosides-Docusate Sodium [Senokot-S] 2 tab PO HS PRN 09/21/18 [History] Sodium Bicarbonate Tab 650 mg PO BID@0800,1700 09/21/18 [History] Albuterol Nebulized [Ventolin Nebulized] 2.5 mg INHALATION RT-Q4H PRN 02/17/19 [History] Albuterol Nebulized [Ventolin Nebulized] 2.5 mg INHALATION RT-QID 02/17/19 [History] Ammonium Lactate Lotion [Lac-Hydrin 12% Lotion] 1 applic TOPICAL DAILY 02/17/19 [History] Benzocaine/Menthol Lozeng [Cepacol lozenge] 1 lozenge MUCOUS MEM Q2H PRN 02/17/19 [History] Cinacalcet HCl [Sensipar] 60 mg PO BID@0800,1700 02/17/19 [History] Ferrous Sulfate [Iron (65 MG Elemental)] 325 mg PO BID@0800,1700 02/17/19 [History] Loperamide HCl [Imodium A-D] 2 - 4 mg PO QID PRN 02/17/19 [History] Mag Hydrox/Al Hydrox/Simeth [Maalox] 15 ml PO QID PRN 02/17/19 [History] Magnesium Oxide 240mg 240 mg PO DAILY@1700 02/17/19 [History] Metolazone [Zaroxolyn] 2.5 mg PO DAILY@0800 02/17/19 [History] Metoprolol Tartrate [Lopressor] 12.5 mg PO BID@0800,1700 02/17/19 [History] Na Phos,M-B/Na Phos,Di-Ba [Fleet Adult] 133 ml RECTAL ONCE PRN 02/17/19 [History] Cephalexin [Keflex] 250 mg PO Q8HR #9 capsule 02/19/19 [Rx] Gabapentin [Neurontin] 100 mg PO BID #6 cap 02/19/19 [Rx] LORazepam [Ativan] 0.5 mg PO DAILY@0800 #3 tab 02/19/19 [Rx] Midodrine HCl [ProAmantine] 2.5 mg PO TID@0800,1400,2200 #9 tab 02/19/19 [Rx] Follow up Appointment(s)/Referral(s): Vidal Howard MD [Primary Care Provider] - 1-2 days Activity/Diet/Wound Care/Special Instructions: nicole
[2019-02-19 15:56] LABS: Glucose,Whole Blood 107 mg/dL (75-99)
--- NOTE | 2019-02-19 18:06 | PN ---
PROGRESS NOTE DATE OF SERVICE: February 19, 2019 Patient is a 68 -year-old pleasant white female admitted to hospital with acute onset of nausea, vomiting, and abdominal pain for the last 2 days duration. She came into the emergency room, was subsequently started on IV Protonix 40 mg twice a day. Symptoms are significantly improved. This morning, she is feeling better. Her diet was advanced as tolerated. She is on a regular diet for lunch, tolerating well. The abdominal pain has resolved. No further episodes of nausea and vomiting. PHYSICAL EXAMINATION: She appears comfortable. No apparent distress. Vital signs stable. Blood pressure 99/52, pulse rate 60, temperature 98.1. HEENT examination unremarkable. Conjunctivae pink. Sclerae anicteric. Oral cavity no lesions. NECK: No JVD or lymph node enlargement. CHEST: Clear to auscultation. HEART: Regular rate and rhythm. ABDOMEN: Soft. Bowel sounds are positive. No organomegaly. EXTREMITIES no pedal edema. Skin no rashes. Neuro: She is awake and oriented x3. No focal deficits. LABS: From yesterday, WBC 6.7, hemoglobin 10.5, platelets are normal. Basic metabolic panel is within normal limits. IMPRESSION: 1. Acute onset of nausea, vomiting, and epigastric pain of 2 days' duration, resolved completely. Presently on IV Protonix 40 mg daily, doing well. Last EGD by Dr. Lowe in October of this year showed evidence of gastritis and small hiatal hernia. 2. History of gastrointestinal bleed in October of 2018. 3. Stable hemoglobin. 4. History of hypertension and hyperlipidemia. 5. History of coronary artery disease, slightly elevated troponin. Continues to remain on beta louann. 6. Atrial fibrillation. 7. Chronic obstructive pulmonary disease. RECOMMENDATIONS: 1. Continue with Protonix 40 mg daily. 2. Advance diet as tolerated. 3. If she remains stable, she can be discharged home today with outpatient followup as needed. Thank you for this consultation. MMODL / IJN: [id number] /
--- NOTE | 2019-02-23 12:37 | CDI ---
Documentation Clarification Form Date: 02/23/2019 From: Marlys Esposito - Elizabeth Nielsen, Box Attacher Admit Date: 02/19/2019 1:51:00 PM Patient Name: Ekaterina Carcamo Visit Number: [id number] Discharge Date: 02/19/2019 7:08:00 PM ATTENTION: The Clinical Documentation Specialists (CDI) and [facility] Coding Staff appreciate your assistance in clarifying documentation. Please respond to the clarification below the line at the bottom and electronically sign. The CDI & [facility] Coding staff will review the response and follow-up if needed. Please note: Queries are made part of the Legal Health Record. If you have any questions, please contact the author of this message via ITS. Dr. Christopher Almaraz Toxic and Metabolic Encephalopathy is documented in the H&P History/Risk Factors: Patient presented with complaints of Nausea and Vomiting, found to have Hypoglycemia, Lactic Acidosis, Dehydration, SAMUEL, Acute Gastritis and a UTI Clinical Indicators: Gross neurological examination did not reveal any focal deficitis Labs: NA 133, Creatinine 1.21, BUN 35 Consults: GI consult In your professional opinion, can you please clarify the following, if known? Toxic Metabolic Encephalopathy Ruled In Toxic Metabolic Encephalopathy Ruled Out Other, please specify Unable to determine Toxic metabolic encephalopathy ruled out MTDD
== END 2019-02-19 19:08 | DRG 391 ==
LOC: EC 13:37 → 3SCARD 18:01 → OBSVTOIN 02-19 13:51
PROVIDERS: ADMIT Hospitalist; ATTEND Hospitalist
DX: K29.00 Acute gastritis without bleeding (principal); G92 Toxic encephalopathy; N17.9 Acute kidney failure, unspecified; I50.42 Chronic combined systolic (congestive) and diastolic (congestive) heart failure; E87.1 Hypo-osmolality and hyponatremia; N39.0 Urinary tract infection, site not specified; E87.2 Acidosis; I48.19 Other persistent atrial fibrillation; I11.0 Hypertensive heart disease with heart failure; I25.10 Atherosclerotic heart disease of native coronary artery without angina pectoris; J44.9 Chronic obstructive pulmonary disease, unspecified; I65.23 Occlusion and stenosis of bilateral carotid arteries; I73.9 Peripheral vascular disease, unspecified; I87.2 Venous insufficiency (chronic) (peripheral); E21.3 Hyperparathyroidism, unspecified; E86.0 Dehydration; E66.01 Morbid (severe) obesity due to excess calories; T50.2X5A Adverse effect of carbonic-anhydrase inhibitors, benzothiadiazides and other diuretics, initial encounter; Y92.019 Unspecified place in single-family (private) house as the place of occurrence of the external cause; K83.8 Other specified diseases of biliary tract; Z96.653 Presence of artificial knee joint, bilateral; Z95.1 Presence of aortocoronary bypass graft; I25.2 Old myocardial infarction; Z85.42 Personal history of malignant neoplasm of other parts of uterus; Z86.14 Personal history of Methicillin resistant Staphylococcus aureus infection; Z87.891 Personal history of nicotine dependence; Z79.899 Other long term (current) drug therapy; E16.2 Hypoglycemia, unspecified; R62.7 Adult failure to thrive
CPT/HCPCS: 36415; 71046; 74177; 76705; 80048; 80053; 81001; 82550; 83605; 83690; 83880; 84443; 84484; 85025; 85610; 85730; 87086; 93005; 94760; 96365; 96375; 99285

== ENCOUNTER 2019-02-20 12:46 | Inpatient (IN) | payer MEDICARE, OTHER ==
[2019-02-20] MEDS ORDERED: SODIUM CHLORIDE 0.9% 1,000 ML IV STA (13:21)
[2019-02-20] MEDS ORDERED: SODIUM CHLORIDE 0.9% 500 ML 500 ML IV STA (13:55)
--- NOTE | 2019-02-20 13:58 | ED ---
General Adult HPI - General Chief complaint: Recheck/Abnormal Lab/Rx Stated complaint: Hypotension Time Seen by Provider: 02/20/19 13:21 Source: EMS Mode of arrival: EMS Limitations: no limitations - History of Present Illness Initial comments: Dictation was produced using [employer] dictation software. please excuse any grammatical, word or spelling errors. Chief Complaint: 68-year-old female with multiple comorbid disease presents with generalized weakness, dizziness and hypertension. History of Present Illness: His 68-year-old female she is [facility] According to EMS who gave report to the nurse patient was stood up by staff and became symptomatic. She reports that during that time she felt very weak. They checked her blood pressure was found to be low with systolics measuring to the 50. Patient states that her abdomen has been painful. She states that she has pain throughout her whole abdomen except for the right lower quadrant. Patient states she feels like "crap." He is unable to provide detailed escalation of her symptoms. She is a limited historian. Patient was recently admitted to the hospital for concerns of urinary tract infection. The ROS documented in this emergency department record has been reviewed and confirmed by me. Those systems with pertinent positive or negative responses have been documented in the HPI. All other systems are other negative and/or noncontributory. PHYSICAL EXAM: General Impression: Alert and oriented x3, not in acute distress HEENT: Normocephalic atraumatic, extra-ocular movements intact, pupils equal and reactive to light bilaterally, dry mucous membranes Cardiovascular: Heart regular rate and rhythm, S1&S2 audible, no murmurs, rubs or gallops Chest: Lungs clear to auscultation bilaterally, no rhonchi, no wheeze, no rales Abdomen: Bowel sounds present, abdomen soft, non-tender, non-distended, no organomegaly Musculoskeletal: Pulses present and equal in all extremities, no peripheral edema Motor: no focal deficits noted Neurological: CN II-XII grossly intact, no focal motor or sensory deficits noted Skin: Intact with no visualized rashes, no decubitus ulcers, no perineal crepitus ED course: 68-year-old female presents with generalized weakness and concerns of [facility]. As upon arrival are within acceptable limits. Repeat blood pressure was 94/46. Abdomen evaluation obtained. Mild leukocytosis of 12.9 which is elevated from patient's baseline. Coag panel is unremarkable. Metabolic shows potassium 5.9, glucose of 69, magnesium 1.2. Patient drainage or peptide of 11,000. Troponin 0.048 which is around her baseline. Patient is still a cold blood positive. Glucose. She is given hyperkalemia cocktail. Patient also given IV magnesium. Discussed patient case with Dr. Almaraz. There is a pending urine study to evaluate for possible urinary tract infection. Patient given intravenous fluids she maintain normal blood pressures while here in emergency department. Patient be admitted for metabolic derangement. EKG interpretation: Ventricular rate 64, H fibrillation, QS 114, QTc 14. EKG compared to 02/17/2019 showing no changes. Overall, this EKG is unremarkable - Related Data Home Medications Medication Instructions Recorded Confirmed Cholecalciferol (Vitamin D3) 2,000 unit PO DAILY@1700 08/15/18 02/20/19 [Vitamin D3] Atorvastatin [Lipitor] 80 mg PO HS@2100 09/21/18 02/20/19 Bisacodyl [Dulcolax] 10 mg RECTAL DAILY PRN 09/21/18 02/20/19 Pantoprazole [Protonix] 40 mg PO DAILY@0800 09/21/18 02/20/19 Potassium Chloride ER [K-Dur 20] 20 meq PO Q6H 09/21/18 02/20/19 Sennosides-Docusate Sodium 2 tab PO HS PRN 09/21/18 02/20/19 [Senokot-S] Sodium Bicarbonate Tab 650 mg PO BID@0800,1700 09/21/18 02/20/19 Albuterol Nebulized [Ventolin 2.5 mg INHALATION RT-Q4H PRN 02/17/19 02/20/19 Nebulized] Albuterol Nebulized [Ventolin 2.5 mg INHALATION RT-QID 02/17/19 02/20/19 Nebulized] Ammonium Lactate Lotion 1 applic TOPICAL DAILY 02/17/19 02/20/19 [Lac-Hydrin 12% Lotion] Benzocaine/Menthol Lozeng [Cepacol 1 lozenge MUCOUS MEM Q2H PRN 02/17/19 02/20/19 lozenge] Cinacalcet HCl [Sensipar] 60 mg PO BID@0800,1700 02/17/19 02/20/19 Ferrous Sulfate [Iron (65 MG 325 mg PO BID@0800,1700 02/17/19 02/20/19 Elemental)] Loperamide HCl [Imodium A-D] 2 - 4 mg PO QID PRN 02/17/19 02/20/19 Mag Hydrox/Al Hydrox/Simeth 15 ml PO QID PRN 02/17/19 02/20/19 [Maalox] Metolazone [Zaroxolyn] 2.5 mg PO DAILY@0600 02/17/19 02/20/19 Metoprolol Tartrate [Lopressor] 12.5 mg PO BID@0800,1700 02/17/19 02/20/19 Magnesium Oxide Packet 240mg 240 mg PO DAILY@1700 02/20/19 02/20/19 Previous Rx's Medication Instructions Recorded Acetaminophen Tab [Tylenol] 650 mg PO Q4HR PRN tab 08/28/18 Magnesium Hydroxide [Milk of 2,400 mg PO DAILY PRN ml 08/28/18 Magnesia Concentrate] Cephalexin [Keflex] 250 mg PO Q8HR #9 capsule 02/19/19 Gabapentin [Neurontin] 100 mg PO BID #6 cap 02/19/19 LORazepam [Ativan] 0.5 mg PO DAILY@0800 #3 tab 02/19/19 Allergies Allergy/AdvReac Type Severity Reaction Status Date / Time No Known Allergies Allergy Verified 02/20/19 13:43 Review of Systems ROS Statement: Those systems with pertinent positive or pertinent negative responses have been documented in the HPI. ROS Other: All systems not noted in ROS Statement are negative. Past Medical History Past Medical History: Atrial Fibrillation, Coronary Artery Disease (CAD), Chest Pain / Angina, COPD, GI Bleed, Hyperlipidemia, Hypertension, Myocardial Infarction (non Q-wave), Osteoarthritis (OA), Vascular Disorder Additional Past Medical History / Comment(s): UTERINE CANCER. LT CATARACT, morbid obesity. recent GIB 10/07/18 Last Myocardial Infarction Date:: 2003 History of Any Multi-Drug Resistant Organisms: None Reported Date of last positivie culture/infection: 10/15/18 MDRO Source:: MRSA KNEE Past Surgical History: Coronary Bypass/CABG, Heart Catheterization With Stent, Hysterectomy, Orthopedic Surgery Additional Past Surgical History / Comment(s): UZMA KNEE REPLACMENTS, RT ANKLE- METAL PLATE, RT ARM SX REPAIR D/T LACERATION. RT THUMB TENDON REPAIR," LT FOOT GREAT TOE BONE REMOVED". Off-pump 3 vessel CABG 08/23/2018 Past Anesthesia/Blood Transfusion Reactions: Blood Transfusion Reaction Additional Past Anesthesia/Blood Transfusion Reaction / Comment(s): PAST BLOOD [id number] Date of Last Stent Placement:: 2003 Past Psychological History: No Psychological Hx Reported Smoking Status: Former smoker Past Alcohol Use History: None Reported Past Drug Use History: None Reported - Past Family History Mother Family Medical History: No Reported History Father History Unknown: Yes General Exam Limitations: no limitations Course Vital Signs 02/20/19 02/20/19 02/20/19 12:52 12:58 16:13 Temperature 97.8 F Pulse Rate 66 67 71 Respiratory 18 18 18 Rate Blood Pressure 113/46 94/46 107/53 O2 Sat by Pulse 100 100 100 Oximetry Medical Decision Making - Lab Data Result diagrams: 02/20/19 15:15 02/20/19 15:15 Lab Results 02/20/19 02/20/19 02/20/19 Range/Units 15:15 15:15 15:15 WBC 12.9 H (3.8-10.6) k/uL RBC 3.87 (3.80-5.40) m/uL Hgb 11.2 L (11.4-16.0) gm/dL Hct 33.4 L (34.0-46.0) % MCV 86.3 (80.0-100.0) fL MCH 28.9 (25.0-35.0) pg MCHC 33.6 (31.0-37.0) g/dL RDW 16.7 H (11.5-15.5) % Plt Count 205 (150-450) k/uL Neutrophils % 85 % Lymphocytes % 10 % Monocytes % 4 % Eosinophils % 0 % Basophils % 0 % Neutrophils # 10.9 H (1.3-7.7) k/uL Lymphocytes # 1.2 (1.0-4.8) k/uL Monocytes # 0.5 (0-1.0) k/uL Eosinophils # 0.0 (0-0.7) k/uL Basophils # 0.1 (0-0.2) k/uL Anisocytosis Slight PT 13.0 H (9.0-12.0) sec INR 1.3 H (<1.2) APTT 23.3 (22.0-30.0) sec Sodium 135 L (137-145) mmol/L Potassium 5.9 H (3.5-5.1) mmol/L Chloride 103 (98-107) mmol/L Carbon Dioxide 24 (22-30) mmol/L Anion Gap 8 mmol/L BUN 26 H (7-17) mg/dL Creatinine 0.95 (0.52-1.04) mg/dL Est GFR (CKD-EPI)AfAm 71 (>60 ml/min/1.73 sqM) Est GFR (CKD-EPI)NonAf 61 (>60 ml/min/1.73 sqM) Glucose 69 L (74-99) mg/dL Plasma Lactic Acid Hayden (0.7-2.0) mmol/L Calcium 6.7 L (8.4-10.2) mg/dL Ionized Calcium Saúl 3.6 L (4.5-5.3) mg/dL Phosphorus 2.3 L (2.5-4.5) mg/dL Magnesium 1.2 L (1.6-2.3) mg/dL Total Bilirubin 0.6 (0.2-1.3) mg/dL AST 60 H (14-36) U/L ALT 40 (9-52) U/L Alkaline Phosphatase 131 H (38-126) U/L Creatine Kinase 127 (30-135) U/L Troponin I (0.000-0.034) ng/mL NT-Pro-B Natriuret Pep pg/mL Total Protein 4.9 L (6.3-8.2) g/dL Albumin 1.9 L (3.5-5.0) g/dL Stool Occult Blood (Negative) 02/20/19 02/20/19 02/20/19 Range/Units 15:15 15:15 15:15 WBC (3.8-10.6) k/uL RBC (3.80-5.40) m/uL Hgb (11.4-16.0) gm/dL Hct (34.0-46.0) % MCV (80.0-100.0) fL MCH (25.0-35.0) pg MCHC (31.0-37.0) g/dL RDW (11.5-15.5) % Plt Count (150-450) k/uL Neutrophils % % Lymphocytes % % Monocytes % % Eosinophils % % Basophils % % Neutrophils # (1.3-7.7) k/uL Lymphocytes # (1.0-4.8) k/uL Monocytes # (0-1.0) k/uL Eosinophils # (0-0.7) k/uL Basophils # (0-0.2) k/uL Anisocytosis PT (9.0-12.0) sec INR (<1.2) APTT (22.0-30.0) sec Sodium (137-145) mmol/L Potassium (3.5-5.1) mmol/L Chloride (98-107) mmol/L Carbon Dioxide (22-30) mmol/L Anion Gap mmol/L BUN (7-17) mg/dL Creatinine (0.52-1.04) mg/dL Est GFR (CKD-EPI)AfAm (>60 ml/min/1.73 sqM) Est GFR (CKD-EPI)NonAf (>60 ml/min/1.73 sqM) Glucose (74-99) mg/dL Plasma Lactic Acid Hayden 2.1 H* (0.7-2.0) mmol/L Calcium (8.4-10.2) mg/dL Ionized Calcium Saúl (4.5-5.3) mg/dL Phosphorus (2.5-4.5) mg/dL Magnesium (1.6-2.3) mg/dL Total Bilirubin (0.2-1.3) mg/dL AST (14-36) U/L ALT (9-52) U/L Alkaline Phosphatase (38-126) U/L Creatine Kinase (30-135) U/L Troponin I 0.048 H* (0.000-0.034) ng/mL NT-Pro-B Natriuret Pep 48759 pg/mL Total Protein (6.3-8.2) g/dL Albumin (3.5-5.0) g/dL Stool Occult Blood (Negative) 02/20/19 Range/Units 16:09 WBC (3.8-10.6) k/uL RBC (3.80-5.40) m/uL Hgb (11.4-16.0) gm/dL Hct (34.0-46.0) % MCV (80.0-100.0) fL MCH (25.0-35.0) pg MCHC (31.0-37.0) g/dL RDW (11.5-15.5) % Plt Count (150-450) k/uL Neutrophils % % Lymphocytes % % Monocytes % % Eosinophils % % Basophils % % Neutrophils # (1.3-7.7) k/uL Lymphocytes # (1.0-4.8) k/uL Monocytes # (0-1.0) k/uL Eosinophils # (0-0.7) k/uL Basophils # (0-0.2) k/uL Anisocytosis PT (9.0-12.0) sec INR (<1.2) APTT (22.0-30.0) sec Sodium (137-145) mmol/L Potassium (3.5-5.1) mmol/L Chloride (98-107) mmol/L Carbon Dioxide (22-30) mmol/L Anion Gap mmol/L BUN (7-17) mg/dL Creatinine (0.52-1.04) mg/dL Est GFR (CKD-EPI)AfAm (>60 ml/min/1.73 sqM) Est GFR (CKD-EPI)NonAf (>60 ml/min/1.73 sqM) Glucose (74-99) mg/dL Plasma Lactic Acid Hayden (0.7-2.0) mmol/L Calcium (8.4-10.2) mg/dL Ionized Calcium Saúl (4.5-5.3) mg/dL Phosphorus (2.5-4.5) mg/dL Magnesium (1.6-2.3) mg/dL Total Bilirubin (0.2-1.3) mg/dL AST (14-36) U/L ALT (9-52) U/L Alkaline Phosphatase (38-126) U/L Creatine Kinase (30-135) U/L Troponin I (0.000-0.034) ng/mL NT-Pro-B Natriuret Pep pg/mL Total Protein (6.3-8.2) g/dL Albumin (3.5-5.0) g/dL Stool Occult Blood Positive H (Negative) Disposition Clinical Impression: Electrolyte abnormality, Hypoglycemia Disposition: ADMITTED IP TO THIS [facility] Condition: Fair Referrals: Anita,Vidal, MD [Primary Care Provider] - 1-2 days Decision Time: 16:24
[2019-02-20 16:08] LABS: Albumin 1.9 g/dL (3.5-5.0); Calcium 6.7 mg/dL (8.4-10.2); Magnesium 1.2 mg/dL (1.6-2.3); Phosphorus 2.3 mg/dL (2.5-4.5); Potassium 5.9 mmol/L (3.5-5.1); Total Bilirubin 0.6 mg/dL (0.2-1.3); Total Protein 4.9 g/dL (6.3-8.2)
[2019-02-20 16:12] LABS: INR 1.3 (<1.2); Partial Thromboplastin Time 23.3 sec (22.0-30.0)
[2019-02-20] MEDS ORDERED: INSULIN REGULAR 100 UNIT/ML VIAL IV ONE (16:16)
[2019-02-20] MEDS ORDERED: SODIUM POLYSTYRENE SULFONATE 15 GM/60 ML BOTTLE PO STA (16:16)
[2019-02-20] MEDS ORDERED: DEXTROSE 50% SYRINGE 50 ML IVP STA ×2 (16:16→16:17)
[2019-02-20 16:17] LABS: Anisocytosis Slight; Basophils # (A) 0.1 k/uL (0-0.2); Basophils % (A) 0 %; Eosinophils % (A) 0 %; HCT 33.4 % (34.0-46.0); HGB 11.2 gm/dL (11.4-16.0); Lymphocytes # (A) 1.2 k/uL (1.0-4.8); Lymphocytes % (A) 10 %; MCH 28.9 pg (25.0-35.0); MCHC 33.6 g/dL (31.0-37.0); MCV 86.3 fL (80.0-100.0); Mean Platelet Volume 9.2; Monocytes # (A) 0.5 k/uL (0-1.0); Monocytes % (A) 4 %; Neutrophils # (A) 10.9 k/uL (1.3-7.7); Neutrophils % (A) 85 %; Platelet Count 205 k/uL (150-450); RBC 3.87 m/uL (3.80-5.40); RDW 16.7 % (11.5-15.5); WBC 12.9 k/uL (3.8-10.6)
[2019-02-20 16:21] LABS: Ionized Calcium 3.6 mg/dL (4.5-5.3)
[2019-02-20] MEDS ORDERED: PANTOPRAZOLE 40 MG/10 ML VIAL IVP ONE (16:24)
[2019-02-20 16:25] LABS: Appearance,Urine Cloudy (Clear); Bilirubin,Urine Negative (Negative); Blood,Urine Trace (Negative); Color,Urine Yellow; Glucose,Urine (UA) Negative (Negative); Hyaline Casts,Urine 19 /lpf (0-2); Ketones,Urine Negative (Negative); Leukocyte Esterase,Urine Large (Negative); Mucus,Urine Rare /hpf; Nitrite,Urine Negative (Negative); PH, Urine 5.5 (5.0-8.0); Protein,Urine 1+ (Negative); RBC,Urine 4 /hpf (0-5); Specific Gravity,Urine 1.024 (1.001-1.035); Urobilinogen,Urine <2.0 mg/dL (<2.0)
[2019-02-20] MEDS ORDERED: ACETAMINOPHEN TAB 325 MG TAB PO PRN (16:25)
[2019-02-20] MEDS ORDERED: NALOXONE 0.4 MG/ML 1 ML VIAL IV PRN (16:25)
--- NOTE | 2019-02-20 16:36 | XR ---
EXAMINATION TYPE: XR chest 2V DATE OF EXAM: 02/20/2019 COMPARISON: 02/17/2019 HISTORY: Weakness TECHNIQUE: Frontal and lateral views of the chest are obtained. FINDINGS: There is moderate size right pleural effusion. There is no heart failure. There is subsegm ental atelectasis in the left lung. There are sternal wires. IMPRESSION: Right pleural effusion. Mild subsegmental atelectasis. No gross heart failure. No change compared to last exam.
[2019-02-20] MEDS ORDERED: CEFEPIME 2 GM in SODIUM CHLORIDE 0.9% 100 ML IVPB STA (16:39)
[2019-02-20] MEDS ORDERED: VANCOMYCIN IV PER PHARMACY 1 EACH MISC MISCELLANE PRN (16:39)
[2019-02-20] MEDS: SODIUM CHLORIDE 0.9% 1,000 ML IV SCH (17:03)
[2019-02-20 17:12] LABS: Glucose,Whole Blood 73 mg/dL (75-99)
[2019-02-20] MEDS: MAGNESIUM SULFATE-D5W PMX 1 GM in DEXTROSE/WATER 1 100ML.BAG IVPB SCH ×2 (17:22→19:47)
[2019-02-20 17:37] LABS: Glucose,Whole Blood 118 mg/dL (75-99)
[2019-02-20 17:49] LABS: Glucose,Whole Blood 112 mg/dL (75-99)
[2019-02-20 18:15] LABS: Glucose,Whole Blood 165 mg/dL (75-99)
[2019-02-20 18:59] LABS: Glucose,Whole Blood 118 mg/dL (75-99)
[2019-02-20 20:29] LABS: Glucose,Whole Blood 87 mg/dL (75-99)
[2019-02-20] MEDS: VANCOMYCIN 1,750 MG in SODIUM CHLORIDE 0.9% 500 ML 500 ML IVPB SCH (20:41)
[2019-02-20] MEDS ORDERED: BENZOCAINE/MENTHOL LOZENG 1 EACH LOZENGE MUCOUS MEM PRN (21:25)
[2019-02-20 22:50] VITALS: BMI 44.7
[2019-02-20 23:13] LABS: Glucose,Whole Blood 70 mg/dL (75-99)
[2019-02-21 01:44] LABS: Glucose,Whole Blood 136 mg/dL (75-99)
[2019-02-21] MEDS ORDERED: METOLAZONE 2.5 MG TAB PO SCH (06:00)
[2019-02-21] MEDS: SODIUM CHLORIDE 0.9% 1,000 ML IV SCH ×2 (06:28→17:16)
[2019-02-21 06:38] LABS: Glucose,Whole Blood 76 mg/dL (75-99)
[2019-02-21] MEDS: SODIUM BICARBONATE TAB 650 MG TAB PO SCH ×2 (08:32→16:59)
[2019-02-21] MEDS: GABAPENTIN 100 MG CAP PO SCH ×2 (08:41→20:17)
[2019-02-21] MEDS: FERROUS SULFATE 325 MG TAB PO SCH ×2 (08:42→16:59)
[2019-02-21] MEDS: LORazepam 0.5 MG TAB PO SCH (08:43)
[2019-02-21] MEDS: ALBUTEROL NEBULIZED 2.5 MG/3 ML INHALATION SCH ×4 (08:50→19:48)
[2019-02-21] MEDS ORDERED: PANTOPRAZOLE 40 MG/10 ML VIAL IV SCH (09:00)
[2019-02-21] MEDS: METOPROLOL TARTRATE 12.5 MG TAB PO SCH ×2 (11:24→17:03)
[2019-02-21 11:47] LABS: Glucose,Whole Blood 65 mg/dL (75-99)
[2019-02-21 12:07] LABS: Glucose,Whole Blood 64 mg/dL (75-99)
[2019-02-21 12:10] LABS: Glucose,Whole Blood 81 mg/dL (75-99)
[2019-02-21 16:52] LABS: Glucose,Whole Blood 71 mg/dL (75-99)
[2019-02-21] MEDS: VANCOMYCIN 1,750 MG in SODIUM CHLORIDE 0.9% 500 ML 500 ML IVPB SCH (16:59)
[2019-02-21] MEDS ORDERED: ACETAMINOPHEN TAB 325 MG TAB PO PRN (17:57)
[2019-02-21] MEDS ORDERED: LOPERAMIDE 2 MG CAP PO PRN (17:57)
--- NOTE | 2019-02-21 18:01 | P.HPIM ---
History of Present Illness H&P Date: 02/21/19 Chief Complaint: Dizzy history of presenting complaint: this is a pleasant 67-year-old patient followed by visiting physician Dr. darnell. Chronic stable medical conditions include persistent atrial fibrillation, congestive heart failure hypertension carotid artery disease osteoarthritis. Patient underwent coronary artery bypass on August 23 . Also had proximal small bowel GI bleed.-Found on Endoscopy. Patient Also Here from February 18 and Discharged on February 19 When She Had Presented with Nausea Vomiting [place] to Be from Acute Gastritis. Patient Was Seen by Dr. Natalia Olson. Patient now presents with feeling weak and tired. She was made to stand up with the staff and became dizzy. Systolic blood pressure was about 60. Also been complaining of lower abdominal pain for about 2 days. No nausea vomiting. Has been having some diarrhea status started yesterday. Mushy. No fever no chills. Tired and rundown. Baseline uses a Rambo lift. Today 8 about 100% of for breakfast. No fever no chills. Denies any respiratory symptoms. Review of systems: GEN.: tired EYES: None HEENT: None NECK: None RESPIRATORY: Baseline shortness of breath] CARDIOVASCULAR: None GASTROINTESTINAL: as above GENITOURINARY: None MUSCULOSKELETAL: pain in the joints LYMPHATICS: None HEMATOLOGICAL: None PSYCHIATRY: None NEUROLOGICAL: None Dermatological lower extremity wounds improving quite well healed past medical history: GI bleed felt to be from his proximal small bowel as evidence capsule study, coronary artery disease, CHF EF 35-40%, hypertensive heart disease, paroxysmal atrial fibrillation, hypertension, primary osteoarthritis, complete occlusion of the right internal carotid artery and 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 Baseline and uses a Rambo left. Patient smoked for 50 years stopped in March 2018. No alcohol. Family history reviewed Noncontributory to presentation Physical examination: VITAL SIGNS: 97.8, 66, 18, 11 3/46, 100% on room air GENERAL: BMI 46.3, laying in bed tired EYES: Pupils equal. Conjunctiva normal HEENT: External appearance of nose and ears normal, oral cavity grossly normal. NECK: JVD unable to assess, short thick neck. HEART: heart sounds muffled, edema present. LUNGS: Respiratory rate increased, decreased breath sounds. ABDOMEN: Soft, mild lower abdominal tenderness. No guarding or rigidity,, liver spleen not palpable, no masses palpable. LYMPHATICS: No lymph nodes palpable in the axilla and neck. PSYCH: Awake answering questions NEUROLOGICAL: Cranial nerves grossly intact; no facial asymmetry, power and sensation grossly intact INVESTIGATIONS, reviewed in the clinical context: White count 12.9 hemoglobin 11.2 platelets 205 pressure 5.9 BUN 26 creatinine 0.95 lactic acid 2.1 ionized calcium 3.6 Assessment: -Acute UTI with cystitis -Hypotension from fluid loss from diarrhea and diuretics -Acute abdominal pain, abdomen is nonsurgical, consider gastroenteritis. Rule out C. diff -Hyperkalemia from potassium supplement -Hypoglycemia, from decreased oral intake -Hypocalcemia from Sensipar -Coronary artery disease with history of bypass on August 20 -Chronic congestive heart failure from systolic dysfunction EF 35-40% -Hypertensive heart disease -Paroxysmal atrial fibrillation in sinus rhythm -Essential hypertension -Complete occlusion of the right internal carotid artery and 80% occlusion of left internal carotid artery -COPD -Peripheral arterial disease -Chronic venous insufficiency lower extremity -Hypercalcemia in a patient with known hyperparathyroidism, on Sensipar -Lower extremity was recently healed except for one -Chronic kidney disease probably from nephrosclerosis. plan: Patient started on IV ceftriaxone. Started on hypoglycemia protocol and also dextrose drip. Stool will be sent off for C. diff. Also give Kayexalate 30 g. We'll hold off Sensipar because of hypocalcemia. Repeat potassium. Repeat labs in the morning. Care was discussed with the patient. Will put the patient on a full liquid diet. Also had calcium carbonate 4 times a day to correct the hypocalcemia Past Medical History Past Medical History: Atrial Fibrillation, Coronary Artery Disease (CAD), Chest Pain / Angina, COPD, GI Bleed, Hyperlipidemia, Hypertension, Myocardial Infarction (non Q-wave), Osteoarthritis (OA), Vascular Disorder Additional Past Medical History / Comment(s): UTERINE CANCER. LT CATARACT, morbid obesity. GIB 10/07/18 Last Myocardial Infarction Date:: 2003 History of Any Multi-Drug Resistant Organisms: None Reported Date of last positivie culture/infection: 10/15/18 MDRO Source:: MRSA KNEE Past Surgical History: Coronary Bypass/CABG, Heart Catheterization With Stent, Hysterectomy, Orthopedic Surgery Additional Past Surgical History / Comment(s): UZMA KNEE REPLACMENTS, RT ANKLE- METAL PLATE, RT ARM SX REPAIR D/T LACERATION. RT THUMB TENDON REPAIR," LT FOOT GREAT TOE BONE REMOVED". Off-pump 3 vessel CABG 08/23/2018 Past Anesthesia/Blood Transfusion Reactions: Blood Transfusion Reaction Additional Past Anesthesia/Blood Transfusion Reaction / Comment(s): PAST BLOOD [id number] Date of Last Stent Placement:: 2003 Past Psychological History: No Psychological Hx Reported Additional Psychological History / Comment(s): PT LIVES ALONE IN [place]T currently in rehab at [facility].NO STEPS TO CLIMB. NO PETS. 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 currently at [facility] Smoking Status: Never smoker Past Alcohol Use History: None Reported Additional Past Alcohol Use History / Comment(s): STARTED SMOKING AT AGE 14 Past Drug Use History: None Reported - Past Family History Mother Family Medical History: No Reported History Father History Unknown: Yes Medications and Allergies Home Medications Medication Instructions Recorded Confirmed Type Cholecalciferol (Vitamin D3) 2,000 unit PO DAILY@1700 08/15/18 02/20/19 History [Vitamin D3] Acetaminophen Tab [Tylenol] 650 mg PO Q4HR PRN tab 08/28/18 02/20/19 Rx Magnesium Hydroxide [Milk of 2,400 mg PO DAILY PRN ml 08/28/18 02/20/19 Rx Magnesia Concentrate] Atorvastatin [Lipitor] 80 mg PO HS@2100 09/21/18 02/20/19 History Bisacodyl [Dulcolax] 10 mg RECTAL DAILY PRN 09/21/18 02/20/19 History Pantoprazole [Protonix] 40 mg PO DAILY@0800 09/21/18 02/20/19 History Potassium Chloride ER [K-Dur 20] 20 meq PO Q6H 09/21/18 02/20/19 History Sennosides-Docusate Sodium 2 tab PO HS PRN 09/21/18 02/20/19 History [Senokot-S] Sodium Bicarbonate Tab 650 mg PO BID@0800,1700 09/21/18 02/20/19 History Albuterol Nebulized [Ventolin 2.5 mg INHALATION RT-Q4H PRN 02/17/19 02/20/19 History Nebulized] Albuterol Nebulized [Ventolin 2.5 mg INHALATION RT-QID 02/17/19 02/20/19 History Nebulized] Ammonium Lactate Lotion 1 applic TOPICAL DAILY 02/17/19 02/20/19 History [Lac-Hydrin 12% Lotion] Benzocaine/Menthol Lozeng [Cepacol 1 lozenge MUCOUS MEM Q2H PRN 02/17/19 02/20/19 History lozenge] Cinacalcet HCl [Sensipar] 60 mg PO BID@0800,1700 02/17/19 02/20/19 History Ferrous Sulfate [Iron (65 MG 325 mg PO BID@0800,1700 02/17/19 02/20/19 History Elemental)] Loperamide HCl [Imodium A-D] 2 - 4 mg PO QID PRN 02/17/19 02/20/19 History Mag Hydrox/Al Hydrox/Simeth 15 ml PO QID PRN 02/17/19 02/20/19 History [Maalox] Metolazone [Zaroxolyn] 2.5 mg PO DAILY@0600 02/17/19 02/20/19 History Metoprolol Tartrate [Lopressor] 12.5 mg PO BID@0800,1700 02/17/19 02/20/19 History Cephalexin [Keflex] 250 mg PO Q8HR #9 capsule 02/19/19 02/20/19 Rx Gabapentin [Neurontin] 100 mg PO BID #6 cap 02/19/19 02/20/19 Rx LORazepam [Ativan] 0.5 mg PO DAILY@0800 #3 tab 02/19/19 02/20/19 Rx Magnesium Oxide Packet 240mg 240 mg PO DAILY@1700 02/20/19 02/20/19 History Allergies Allergy/AdvReac Type Severity Reaction Status Date / Time No Known Allergies Allergy Verified 02/20/19 13:43 Physical Exam Vitals: Vital Signs Temp Pulse Pulse Resp BP BP Pulse Ox 02/21/19 08:00 98.1 F 77 20 90/52 100 02/21/19 04:00 98.5 F 60 20 104/51 02/21/19 00:00 64 20 89/50 02/20/19 20:00 98.2 F 64 20 82/49 93 L 02/20/19 19:08 62 18 105/54 98 02/20/19 17:58 66 18 106/41 98 02/20/19 17:51 98.2 F 64 20 82/49 93 L 02/20/19 17:48 63 18 107/53 100 02/20/19 16:13 71 18 107/53 100 02/20/19 12:58 67 18 94/46 100 02/20/19 12:52 97.8 F 66 18 113/46 100 Intake and Output 02/20/19 02/21/19 02/21/19 22:59 06:59 14:59 Intake Total 120 240 Balance 120 240 Intake: Oral 120 240 Other: Voiding Method Indwelling Catheter Indwelling Catheter Indwelling Catheter # Bowel Movements 1 Weight 107.5 kg Results CBC & Chem 7: 02/20/19 15:15 02/20/19 15:15 Labs: Abnormal Lab Results - Last 24 Hours (Table) 02/20/19 02/20/19 02/20/19 Range/Units 15:15 15:15 15:15 WBC 12.9 H (3.8-10.6) k/uL Hgb 11.2 L (11.4-16.0) gm/dL Hct 33.4 L (34.0-46.0) % RDW 16.7 H (11.5-15.5) % Neutrophils # 10.9 H (1.3-7.7) k/uL PT 13.0 H (9.0-12.0) sec INR 1.3 H (<1.2) Sodium 135 L (137-145) mmol/L Potassium 5.9 H (3.5-5.1) mmol/L BUN 26 H (7-17) mg/dL Glucose 69 L (74-99) mg/dL POC Glucose (mg/dL) (75-99) mg/dL Plasma Lactic Acid Hayden (0.7-2.0) mmol/L Calcium 6.7 L (8.4-10.2) mg/dL Ionized Calcium Sa[place]l 3.6 L (4.5-5.3) mg/dL Phosphorus 2.3 L (2.5-4.5) mg/dL Magnesium 1.2 L (1.6-2.3) mg/dL AST 60 H (14-36) U/L Alkaline Phosphatase 131 H (38-126) U/L Troponin I (0.000-0.034) ng/mL Total Protein 4.9 L (6.3-8.2) g/dL Albumin 1.9 L (3.5-5.0) g/dL Urine Appearance (Clear) Urine Protein (Negative) Urine Blood (Negative) Ur Leukocyte Esterase (Negative) Urine WBC (0-5) /hpf Urine WBC Clumps (None) /hpf Hyaline Casts (0-2) /lpf Urine Mucus (None) /hpf Stool Occult Blood (Negative) 02/20/19 02/20/19 02/20/19 Range/Units 15:15 15:15 16:09 WBC (3.8-10.6) k/uL Hgb (11.4-16.0) gm/dL Hct (34.0-46.0) % RDW (11.5-15.5) % Neutrophils # (1.3-7.7) k/uL PT (9.0-12.0) sec INR (<1.2) Sodium (137-145) mmol/L Potassium (3.5-5.1) mmol/L BUN (7-17) mg/dL Glucose (74-99) mg/dL POC Glucose (mg/dL) (75-99) mg/dL Plasma Lactic Acid Hayden 2.1 H* (0.7-2.0) mmol/L Calcium (8.4-10.2) mg/dL Ionized Calcium Saúl (4.5-5.3) mg/dL Phosphorus (2.5-4.5) mg/dL Magnesium (1.6-2.3) mg/dL AST (14-36) U/L Alkaline Phosphatase (38-126) U/L Troponin I 0.048 H* (0.000-0.034) ng/mL Total Protein (6.3-8.2) g/dL Albumin (3.5-5.0) g/dL Urine Appearance Cloudy H (Clear) Urine Protein 1+ H (Negative) Urine Blood Trace H (Negative) Ur Leukocyte Esterase Large H (Negative) Urine WBC >182 H (0-5) /hpf Urine WBC Clumps Many H (None) /hpf Hyaline Casts 19 H (0-2) /lpf Urine Mucus Rare H (None) /hpf Stool Occult Blood (Negative) 02/20/19 02/20/19 02/20/19 Range/Units 16:09 17:01 17:32 WBC (3.8-10.6) k/uL Hgb (11.4-16.0) gm/dL Hct (34.0-46.0) % RDW (11.5-15.5) % Neutrophils # (1.3-7.7) k/uL PT (9.0-12.0) sec INR (<1.2) Sodium (137-145) mmol/L Potassium (3.5-5.1) mmol/L BUN (7-17) mg/dL Glucose (74-99) mg/dL POC Glucose (mg/dL) 73 L 118 H (75-99) mg/dL Plasma Lactic Acid Hayden (0.7-2.0) mmol/L Calcium (8.4-10.2) mg/dL Ionized Calcium Saúl (4.5-5.3) mg/dL Phosphorus (2.5-4.5) mg/dL Magnesium (1.6-2.3) mg/dL AST (14-36) U/L Alkaline Phosphatase (38-126) U/L Troponin I (0.000-0.034) ng/mL Total Protein (6.3-8.2) g/dL Albumin (3.5-5.0) g/dL Urine Appearance (Clear) Urine Protein (Negative) Urine Blood (Negative) Ur Leukocyte Esterase (Negative) Urine WBC (0-5) /hpf Urine WBC Clumps (None) /hpf Hyaline Casts (0-2) /lpf Urine Mucus (None) /hpf Stool Occult Blood Positive H (Negative) 02/20/19 02/20/19 02/20/19 Range/Units 17:48 18:13 18:57 WBC (3.8-10.6) k/uL Hgb (11.4-16.0) gm/dL Hct (34.0-46.0) % RDW (11.5-15.5) % Neutrophils # (1.3-7.7) k/uL PT (9.0-12.0) sec INR (<1.2) Sodium (137-145) mmol/L Potassium (3.5-5.1) mmol/L BUN (7-17) mg/dL Glucose (74-99) mg/dL POC Glucose (mg/dL) 112 H 165 H 118 H (75-99) mg/dL Plasma Lactic Acid Hayden (0.7-2.0) mmol/L Calcium (8.4-10.2) mg/dL Ionized Calcium Saúl (4.5-5.3) mg/dL Phosphorus (2.5-4.5) mg/dL Magnesium (1.6-2.3) mg/dL AST (14-36) U/L Alkaline Phosphatase (38-126) U/L Troponin I (0.000-0.034) ng/mL Total Protein (6.3-8.2) g/dL Albumin (3.5-5.0) g/dL Urine Appearance (Clear) Urine Protein (Negative) Urine Blood (Negative) Ur Leukocyte Esterase (Negative) Urine WBC (0-5) /hpf Urine WBC Clumps (None) /hpf Hyaline Casts (0-2) /lpf Urine Mucus (None) /hpf Stool Occult Blood (Negative) 02/20/19 02/20/19 02/21/19 Range/Units 19:46 23:11 01:36 WBC (3.8-10.6) k/uL Hgb (11.4-16.0) gm/dL Hct (34.0-46.0) % RDW (11.5-15.5) % Neutrophils # (1.3-7.7) k/uL PT (9.0-12.0) sec INR (<1.2) Sodium (137-145) mmol/L Potassium (3.5-5.1) mmol/L BUN (7-17) mg/dL Glucose (74-99) mg/dL POC Glucose (mg/dL) 70 L 136 H (75-99) mg/dL Plasma Lactic Acid Hayden 4.5 H* (0.7-2.0) mmol/L Calcium (8.4-10.2) mg/dL Ionized Calcium Saúl (4.5-5.3) mg/dL Phosphorus (2.5-4.5) mg/dL Magnesium (1.6-2.3) mg/dL AST (14-36) U/L Alkaline Phosphatase (38-126) U/L Troponin I (0.000-0.034) ng/mL Total Protein (6.3-8.2) g/dL Albumin (3.5-5.0) g/dL Urine Appearance (Clear) Urine Protein (Negative) Urine Blood (Negative) Ur Leukocyte Esterase (Negative) Urine WBC (0-5) /hpf Urine WBC Clumps (None) /hpf Hyaline Casts (0-2) /lpf Urine Mucus (None) /hpf Stool Occult Blood (Negative) Microbiology - Last 24 Hours (Table) 02/20/19 16:09 Urine Culture - Preliminary Urine,Voided Thrombosis Risk Factor Assmnt - Choose All That Apply Each Factor Represents 1 point: Obesity (BMI >25), Swollen legs (current) Other Risk Factors: Yes Each Risk Factor Represents 2 Points: Age 61-74 years Other congenital or acquired thrombophilia - If yes, enter type in comment: No Thrombosis Risk Factor Assessment Total Risk Factor Score: 4 Thrombosis Risk Factor Assessment Level: Moderate Risk
[2019-02-21] MEDS: CALCIUM CARBONATE 500 MG CHEWABLE PO SCH ×2 (18:03→20:17)
[2019-02-21] MEDS: ATORVASTATIN 80 MG TAB PO SCH (20:17)
[2019-02-21 20:35] LABS: Glucose,Whole Blood 75 mg/dL (75-99)
[2019-02-21] MEDS: VANCOMYCIN ORAL SOLUTION 250 MG/5 ML BOTTLE PO SCH (23:30)
[2019-02-21] MEDS: CHERRY FLAVOR 60 ML BOTTLE PO PRN (23:31)
[2019-02-22 02:02] LABS: Glucose,Whole Blood 72 mg/dL (75-99)
[2019-02-22] MEDS: CHERRY FLAVOR 60 ML BOTTLE PO PRN ×4 (05:41→23:01)
[2019-02-22] MEDS: VANCOMYCIN ORAL SOLUTION 250 MG/5 ML BOTTLE PO SCH ×4 (05:41→23:01)
[2019-02-22] MEDS: SODIUM CHLORIDE 0.9% 1,000 ML IV SCH ×2 (05:43→18:16)
[2019-02-22 06:05] LABS: Glucose,Whole Blood 73 mg/dL (75-99)
[2019-02-22 06:10] LABS: Ionized Calcium 4.2 mg/dL (4.5-5.3)
[2019-02-22 07:59] LABS: African American GFR (CKD) >90 (>60 ml/min/1.73 sqM); Anion Gap 7 mmol/L; Blood Urea Nitrogen 19 mg/dL (7-17); Carbon Dioxide 22 mmol/L (22-30); Chloride 108 mmol/L (98-107); Glucose 62 mg/dL (74-99); Potassium 3.6 mmol/L (3.5-5.1); Sodium 137 mmol/L (137-145)
[2019-02-22] MEDS: ALBUTEROL NEBULIZED 2.5 MG/3 ML INHALATION SCH ×4 (08:02→20:36)
[2019-02-22 08:33] LABS: Calcium 6.4 mg/dL (8.4-10.2)
[2019-02-22] MEDS: LORazepam 0.5 MG TAB PO SCH (08:34)
[2019-02-22] MEDS: GABAPENTIN 100 MG CAP PO SCH ×2 (08:34→19:50)
[2019-02-22] MEDS: PANTOPRAZOLE 40 MG TABLET PO SCH (08:34)
[2019-02-22] MEDS: METOPROLOL TARTRATE 12.5 MG TAB PO SCH ×2 (08:34→17:12)
[2019-02-22] MEDS: CALCIUM CARBONATE 500 MG CHEWABLE PO SCH ×4 (08:35→19:50)
[2019-02-22] MEDS: SODIUM BICARBONATE TAB 650 MG TAB PO SCH ×2 (08:35→17:12)
[2019-02-22] MEDS: AMMONIUM LACTATE 12% LOTION 225 GM BTL TOPICAL SCH (08:43)
[2019-02-22 12:01] LABS: Glucose,Whole Blood 84 mg/dL (75-99)
[2019-02-22 16:46] LABS: Glucose,Whole Blood 90 mg/dL (75-99)
--- NOTE | 2019-02-22 17:32 | P.PN ---
Progress Note - Text Progress Note Date: 02/22/19 Chief Complaint: Dizzy history of presenting complaint: this is a pleasant 67-year-old patient followed by visiting physician Dr. darnell. Chronic stable medical conditions include persistent atrial fibrillation, congestive heart failure hypertension carotid artery disease osteoarthritis. Patient underwent coronary artery bypass on August 23 . Also had proximal small bowel GI bleed.-Found on Endoscopy. Patient Also Here from February 18 and Discharged on February 19 When She Had Presented with Nausea Vomiting [place] to Be from Acute Gastritis. Patient Was Seen by Dr. Natalia Olson. Patient now presents with feeling weak and tired. She was made to stand up with the staff and became dizzy. Systolic blood pressure was about 60. Also been complaining of lower abdominal pain for about 2 days. No nausea vomiting. Has been having some diarrhea status started yesterday. Mushy. No fever no chills. Tired and rundown. Baseline uses a Rambo lift. Today 8 about 100% of for breakfast. No fever no chills. Denies any respiratory symptoms. Patient admitted with-acute UTI and cystitis, hypertension from fluid loss and diarrhea, acute C. diff colitis, hyperkalemia, hypoglycemia from decreased oral intake, hypocalcemia. Started on by mouth vancomycin. Today-physical better. Still having some diarrhea. Abdominal pain still present. Laying in bed. Less tired. Review of systems: Was done for constitutional, cardiovascular, GI, pulmonary. relevant finding as above Active Medications Acetaminophen (Tylenol Tab) 650 mg PO Q6HR PRN PRN Reason: Mild Pain or Fever > 100.5 Acetaminophen (Tylenol Tab) 650 mg PO Q4HR PRN PRN Reason: Fever and/ or Moderate Pain Albuterol Sulfate (Ventolin Nebulized) 2.5 mg INHALATION RT-QID [facility] Last Admin: 02/22/19 15:30 Dose: 2.5 mg Documented by: Atorvastatin Calcium (Lipitor) 80 mg PO HS@2100 [facility] Last Admin: 02/21/19 20:17 Dose: 80 mg Documented by: Benzocaine/Menthol (Cepacol Lozenge) 1 each MUCOUS MEM Q2H PRN PRN Reason: Sore Throat Calcium Carbonate/Glycine (Tums) 500 mg PO QID [facility] Last Admin: 02/22/19 17:12 Dose: 500 mg Documented by: Fulton Syrup (F[place]on Syrup) 5 ml PO Q6H PRN PRN Reason: FLAVORING FOR VANCO SYRUP Last Admin: 02/22/19 17:12 Dose: 5 ml Documented by: Gabapentin (Neurontin) 100 mg PO BID [facility] Last Admin: 02/22/19 08:34 Dose: 100 mg Documented by: Sodium Chloride (Saline 0.9%) 1,000 mls @ 80 mls/hr IV .[id number] [facility] Last Admin: 02/22/19 05:43 Dose: 80 mls/hr Documented by: Ceftriaxone Sodium 1 gm/ (Sodium Chloride) 50 mls @ 100 mls/hr IVPB Q24HR [facility] Last Admin: 02/22/19 08:34 Dose: 100 mls/hr Documented by: Lactic Acid (Lac-Hydrin 12%) 1 applic TOPICAL DAILY [facility] Last Admin: 02/22/19 08:43 Dose: Not Given Documented by: Loperamide HCl (Imodium) 4 mg PO QID PRN PRN Reason: Diarrhea Lorazepam (Ativan) 0.5 mg PO DAILY@0800 [facility] Last Admin: 02/22/19 08:34 Dose: 0.5 mg Documented by: Metoprolol Tartrate (Lopressor) 12.5 mg PO BID@0800,1700 [facility] Last Admin: 02/22/19 17:12 Dose: 12.5 mg Documented by: Naloxone HCl (Narcan) 0.2 mg IV Q2M PRN PRN Reason: Opioid Reversal Pantoprazole Sodium (Protonix) 40 mg PO DAILY [facility] Last Admin: 02/22/19 08:34 Dose: 40 mg Documented by: Sodium Bicarbonate (Sodium Bicarbonate Tab) 650 mg PO BID@0800,1700 [facility] Last Admin: 02/22/19 17:12 Dose: 650 mg Documented by: Vancomycin HCl (Vancomycin Oral Solution) 125 mg PO Q6HR [facility] Last Admin: 02/22/19 17:12 Dose: 125 mg Documented by: Physical examination: VITAL SIGNS: 98, 81, 17, 100/49, 98% on 2 L GENERAL: Laying in bed, but more peppy EYES: Pupils equal. Conjunctiva normal HEENT: External appearance of nose and ears normal, oral cavity grossly normal. NECK: JVD unable to assess, short thick neck. HEART: heart sounds muffled, edema present. LUNGS: Respiratory rate increased, decreased breath sounds. ABDOMEN: Soft, mild lower abdominal tenderness. No guarding or rigidity,, liver spleen not palpable, no masses palpable. LYMPHATICS: No lymph nodes palpable in the axilla and neck. PSYCH: Awake answering questions NEUROLOGICAL: Cranial nerves grossly intact; no facial asymmetry, power and sensation grossly intact INVESTIGATIONS, reviewed in the clinical context: Potassium 3.6, BUN 19, creatinine 0.75, glucose 62 high-risk culture 4.2 Previous testing: Stool positive for C. diff White count 12.9 hemoglobin 11.2 platelets 205 pressure 5.9 BUN 26 creatinine 0.95 lactic acid 2.1 ionized calcium 3.6 Assessment: -Acute UTI with cystitis, with urine culture negative -Hypotension from fluid loss from diarrhea and diuretics, slow to improve -Acute abdominal pain,-from C. diff colitis acute, slow to respond -Hyperkalemia from potassium supplement, improved -Hypoglycemia, from decreased oral intake, slow to respond -Hypocalcemia from Sensipar, slowly improving -Coronary artery disease with history of bypass on August 20 -Chronic congestive heart failure from systolic dysfunction EF 35-40% -Hypertensive heart disease -Paroxysmal atrial fibrillation in sinus rhythm -Essential hypertension -Complete occlusion of the right internal carotid artery and 80% occlusion of left internal carotid artery -COPD -Peripheral arterial disease -Chronic venous insufficiency lower extremity -Hypercalcemia in a patient with known hyperparathyroidism, on Sensipar -Lower extremity was recently healed except for one -Chronic kidney disease probably from nephrosclerosis. plan: We'll switch patient over to oral Keflex. Continue with percussion supplementation. Given IV fluids. Keep on vancomycin. Keep on a full liquid diet. Repeat labs in the morning.
[2019-02-22] MEDS: ATORVASTATIN 80 MG TAB PO SCH (19:50)
[2019-02-22 20:04] LABS: Glucose,Whole Blood 94 mg/dL (75-99)
[2019-02-23 02:43] LABS: Glucose,Whole Blood 72 mg/dL (75-99)
[2019-02-23] MEDS: VANCOMYCIN ORAL SOLUTION 250 MG/5 ML BOTTLE PO SCH ×4 (05:51→23:29)
[2019-02-23] MEDS: CHERRY FLAVOR 60 ML BOTTLE PO PRN ×4 (05:51→23:29)
[2019-02-23] MEDS: SODIUM CHLORIDE 0.9% 1,000 ML IV SCH ×2 (05:52→21:02)
[2019-02-23 06:08] LABS: Glucose,Whole Blood 78 mg/dL (75-99)
[2019-02-23] MEDS: ALBUTEROL NEBULIZED 2.5 MG/3 ML INHALATION SCH ×4 (08:34→19:16)
[2019-02-23] MEDS: CALCIUM CARBONATE 500 MG CHEWABLE PO SCH ×4 (09:05→21:02)
[2019-02-23] MEDS: GABAPENTIN 100 MG CAP PO SCH ×2 (09:05→21:02)
[2019-02-23] MEDS: LORazepam 0.5 MG TAB PO SCH (09:05)
[2019-02-23] MEDS: SODIUM BICARBONATE TAB 650 MG TAB PO SCH ×2 (09:05→16:56)
[2019-02-23] MEDS: PANTOPRAZOLE 40 MG TABLET PO SCH (09:05)
[2019-02-23] MEDS: AMMONIUM LACTATE 12% LOTION 225 GM BTL TOPICAL SCH (09:06)
[2019-02-23] MEDS: METOPROLOL TARTRATE 12.5 MG TAB PO SCH ×2 (09:06→16:56)
[2019-02-23 11:46] LABS: Glucose,Whole Blood 71 mg/dL (75-99)
[2019-02-23 17:11] LABS: Glucose,Whole Blood 75 mg/dL (75-99)
[2019-02-23 17:11] LABS: Glucose,Whole Blood 65 mg/dL (75-99)
[2019-02-23 17:38] VITALS: RESP 18
[2019-02-23] MEDS: ATORVASTATIN 80 MG TAB PO SCH (21:02)
[2019-02-23 21:27] LABS: Glucose,Whole Blood 106 mg/dL (75-99)
--- NOTE | 2019-02-23 22:43 | P.PN ---
Progress Note - Text Progress Note Date: 02/23/19 Chief Complaint: Dizzy history of presenting complaint: this is a pleasant 67-year-old patient followed by visiting physician Dr. darnell. Chronic stable medical conditions include persistent atrial fibrillation, congestive heart failure hypertension carotid artery disease osteoarthritis. Patient underwent coronary artery bypass on August 23 . Also had proximal small bowel GI bleed.-Found on Endoscopy. Patient Also Here from February 18 and Discharged on February 19 When She Had Presented with Nausea Vomiting [place] to Be from Acute Gastritis. Patient Was Seen by Dr. Natalia Olson. Patient now presents with feeling weak and tired. She was made to stand up with the staff and became dizzy. Systolic blood pressure was about 60. Also been complaining of lower abdominal pain for about 2 days. No nausea vomiting. Has been having some diarrhea status started yesterday. Mushy. No fever no chills. Tired and rundown. Baseline uses a Rambo lift. Today 8 about 100% of for breakfast. No fever no chills. Denies any respiratory symptoms. Patient admitted with-acute UTI and cystitis, hypertension from fluid loss and diarrhea, acute C. diff colitis, hyperkalemia, hypoglycemia from decreased oral intake, hypocalcemia. Started on by mouth vancomycin. Today-continues to feel better. Oral intake is improving. Diarrhea started to slow down. Abdominal pain is better.. Review of systems: Was done for constitutional, cardiovascular, GI, pulmonary. relevant finding as above Active Medications Acetaminophen (Tylenol Tab) 650 mg PO Q6HR PRN PRN Reason: Mild Pain or Fever > 100.5 Acetaminophen (Tylenol Tab) 650 mg PO Q4HR PRN PRN Reason: Fever and/ or Moderate Pain Albuterol Sulfate (Ventolin Nebulized) 2.5 mg INHALATION RT-QID [facility] Last Admin: 02/23/19 19:16 Dose: Not Given Documented by: Atorvastatin Calcium (Lipitor) 80 mg PO HS@2100 [facility] Last Admin: 02/23/19 21:02 Dose: 80 mg Documented by: Benzocaine/Menthol (Cepacol Lozenge) 1 each MUCOUS MEM Q2H PRN PRN Reason: Sore Throat Calcium Carbonate/Glycine (Tums) 500 mg PO QID [facility] Last Admin: 02/23/19 21:02 Dose: 500 mg Documented by: F[place]on Syrup (F[place]on Syrup) 5 ml PO Q6H PRN PRN Reason: FLAVORING FOR VANCO SYRUP Last Admin: 02/23/19 16:56 Dose: 5 ml Documented by: Gabapentin (Neurontin) 100 mg PO BID [facility] Last Admin: 02/23/19 21:02 Dose: 100 mg Documented by: Sodium Chloride (Saline 0.9%) 1,000 mls @ 80 mls/hr IV .[id number] [facility] Last Admin: 02/23/19 21:02 Dose: 80 mls/hr Documented by: Ceftriaxone Sodium 1 gm/ (Sodium Chloride) 50 mls @ 100 mls/hr IVPB Q24HR [facility] Last Admin: 02/23/19 09:05 Dose: 100 mls/hr Documented by: Lactic Acid (Lac-Hydrin 12%) 1 applic TOPICAL DAILY [facility] Last Admin: 02/23/19 09:06 Dose: Not Given Documented by: Loperamide HCl (Imodium) 4 mg PO QID PRN PRN Reason: Diarrhea Lorazepam (Ativan) 0.5 mg PO DAILY@0800 [facility] Last Admin: 02/23/19 09:05 Dose: 0.5 mg Documented by: Metoprolol Tartrate (Lopressor) 12.5 mg PO BID@0800,1700 [facility] Last Admin: 02/23/19 16:56 Dose: 12.5 mg Documented by: Naloxone HCl (Narcan) 0.2 mg IV Q2M PRN PRN Reason: Opioid Reversal Pantoprazole Sodium (Protonix) 40 mg PO DAILY [facility] Last Admin: 02/23/19 09:05 Dose: 40 mg Documented by: Sodium Bicarbonate (Sodium Bicarbonate Tab) 650 mg PO BID@0800,1700 [facility] Last Admin: 02/23/19 16:56 Dose: 650 mg Documented by: Vancomycin HCl (Vancomycin Oral Solution) 125 mg PO Q6HR [facility] Last Admin: 02/23/19 16:56 Dose: 125 mg Documented by: Physical examination: VITAL SIGNS: 97.9, 75, 18, 104/48, 100% room air GENERAL: Laying in bed, a bit tired EYES: Pupils equal. Conjunctiva normal HEENT: External appearance of nose and ears normal, oral cavity grossly normal. NECK: JVD unable to assess, short thick neck. HEART: heart sounds muffled, edema present. LUNGS: Respiratory rate increased, decreased breath sounds. ABDOMEN: Soft, mild lower abdominal tenderness. No guarding or rigidity,, liver spleen not palpable, no masses palpable. LYMPHATICS: No lymph nodes palpable in the axilla and neck. PSYCH: Awake answering questions INVESTIGATIONS, reviewed in the clinical context: Accu-Cheks 78-71, 65, 75, Previous testing: Stool positive for C. diff White count 12.9 hemoglobin 11.2 platelets 205 pressure 5.9 BUN 26 creatinine 0.95 lactic acid 2.1 ionized calcium 3.6 Assessment: -Acute UTI with cystitis, with urine culture negative -Hypotension from fluid loss from diarrhea and diuretics, slow to improve -Acute abdominal pain,-from C. 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 plan: Continue with oral vancomycin. Switched to by mouth Keflex. Other medications to continue. Encouraged oral intake. Still getting hypoglycemic. Repeat labs in the morning. Discussed with the patient.
[2019-02-24 02:10] LABS: Glucose,Whole Blood 71 mg/dL (75-99)
[2019-02-24] MEDS: CHERRY FLAVOR 60 ML BOTTLE PO PRN ×2 (05:09→12:51)
[2019-02-24] MEDS: VANCOMYCIN ORAL SOLUTION 250 MG/5 ML BOTTLE PO SCH ×2 (05:09→12:50)
[2019-02-24 06:17] LABS: Glucose,Whole Blood 73 mg/dL (75-99)
[2019-02-24] MEDS: ALBUTEROL NEBULIZED 2.5 MG/3 ML INHALATION SCH ×2 (08:12→11:41)
[2019-02-24] MEDS: GABAPENTIN 100 MG CAP PO SCH (08:54)
[2019-02-24] MEDS: CALCIUM CARBONATE 500 MG CHEWABLE PO SCH ×2 (08:54→12:50)
[2019-02-24] MEDS: PANTOPRAZOLE 40 MG TABLET PO SCH (08:54)
[2019-02-24] MEDS: LORazepam 0.5 MG TAB PO SCH (08:54)
[2019-02-24] MEDS: CEPHALEXIN 250 MG CAP PO SCH ×2 (08:54→12:50)
[2019-02-24] MEDS: AMMONIUM LACTATE 12% LOTION 225 GM BTL TOPICAL SCH (08:54)
[2019-02-24] MEDS: METOPROLOL TARTRATE 12.5 MG TAB PO SCH (08:54)
[2019-02-24] MEDS: SODIUM BICARBONATE TAB 650 MG TAB PO SCH (08:54)
[2019-02-24] MEDS: SODIUM CHLORIDE 0.9% 1,000 ML IV SCH (09:16)
[2019-02-24 11:53] LABS: Glucose,Whole Blood 75 mg/dL (75-99)
[2019-02-24] MEDS ORDERED: PSYLLIUM HUSK 100% 6 GM PACKET PO SCH (12:15)
--- NOTE | 2019-02-24 12:26 | P.DS ---
Providers Date of admission: 02/20/19 16:25 Expected date of discharge: 02/24/19 Attending physician: Christopher Almaraz Consults: 02/20/19 22:41 Consult Physician Routine Consulting Provider: Linnea Olson Consult Reason/Comments: occult stool Do you want consulting provider notified?: Yes, Notify in am Primary care physician: Vidal Howard Hospital Course: Chief Complaint: Dizzy Hospital course: this is a pleasant 67-year-old patient followed by visiting physician Dr. howard. Chronic stable medical conditions include persistent atrial fibrillation, congestive heart failure hypertension carotid artery disease osteoarthritis. Patient underwent coronary artery bypass on August 23 . Also had proximal small bowel GI bleed.-Found on Endoscopy. Patient Also Here from February 18 and Discharged on February 19 When She Had Presented with Nausea Vomiting [place] to Be from Acute Gastritis. Patient Was Seen by Dr. Natalia Olson. Patient now presents with feeling weak and tired. She was made to stand up with the staff and became dizzy. Systolic blood pressure was about 60. Also been complaining of lower abdominal pain for about 2 days. No nausea vomiting. Has been having some diarrhea status started yesterday. Mushy. No fever no chills. Tired and rundown. Baseline uses a Rambo lift. Today 8 about 100% of for breakfast. No fever no chills. Denies any respiratory symptoms. Patient admitted with-acute UTI and cystitis, hypertension from fluid loss and diarrhea, acute C. diff colitis, hyperkalemia, hypoglycemia from decreased oral intake, hypocalcemia. Started on by mouth vancomycin. Patient's oral intake has been variable. Diarrhea much better. Blood pressure improved. Hyperkalemia corrected. Patient's been refusing a blood draws. Because of low calcium Sensipar has been held. Calcium is to be followed. And if it goes up again in Sensipar can be resumed. Metamucil was added to add bulk to the stool. Care was discussed with the patient today. Again explained about the importance of getting blood draws. Patient diuretics a bit disconnected. Discussion and discharge planning more than 35 minutes Physical examination: VITAL SIGNS: 97.7, 73, 18, 107/44, 100% on 2 L GENERAL: Laying in bed, awake EYES: Pupils equal. Conjunctiva normal HEENT: External appearance of nose and ears normal, oral cavity grossly normal. NECK: JVD unable to assess, short thick neck. HEART: heart sounds muffled, edema present. LUNGS: Respiratory rate increased, decreased breath sounds. ABDOMEN: Soft, mild lower abdominal tenderness. No guarding or rigidity,, liver spleen not palpable, no masses palpable. LYMPHATICS: No lymph nodes palpable in the axilla and neck. PSYCH: Awake answering questions INVESTIGATIONS, reviewed in the clinical context: Refuse blood draws Previous testing: Stool positive for C. diff White count 12.9 hemoglobin 11.2 platelets 205 pressure 5.9 BUN 26 creatinine 0.95 lactic acid 2.1 ionized calcium 3.6 Discharge diagnosis: -Acute UTI with cystitis, with urine culture negative POA -Hypotension from fluid loss from diarrhea and diuretics, improved POA -Acute abdominal pain,-from C. 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 Disposition: [facility] Patient Condition at Discharge: Stable Plan - Discharge Summary Discharge Rx Participant: No New Discharge Prescriptions: New Cephalexin [Keflex] 250 mg PO QID #12 cap Psyllium Husk 100% [Metamucil Packet] 6 gm PO BID packet Vancomycin Oral Solution 125 mg PO Q6HR 10 Days ml Continue Cholecalciferol (Vitamin D3) [Vitamin D3] 2,000 unit PO DAILY@1700 Magnesium Hydroxide [Milk of Magnesia Concentrate] 2,400 mg PO DAILY PRN ml PRN Reason: Constipation Acetaminophen Tab [Tylenol] 650 mg PO Q4HR PRN tab PRN Reason: Fever and/ or Moderate Pain Atorvastatin [Lipitor] 80 mg PO HS@2100 Bisacodyl [Dulcolax] 10 mg RECTAL DAILY PRN PRN Reason: Constipation Pantoprazole [Protonix] 40 mg PO DAILY@0800 Sodium Bicarbonate Tab 650 mg PO BID@0800,1700 Ammonium Lactate Lotion [Lac-Hydrin 12% Lotion] 1 applic TOPICAL DAILY Metoprolol Tartrate [Lopressor] 12.5 mg PO BID@0800,1700 Mag Hydrox/Al Hydrox/Simeth [Maalox] 15 ml PO QID PRN PRN Reason: Gi Upset Loperamide HCl [Imodium A-D] 2 - 4 mg PO QID PRN PRN Reason: Diarrhea Benzocaine/Menthol Lozeng [Cepacol lozenge] 1 lozenge MUCOUS MEM Q2H PRN PRN Reason: Sore Throat Albuterol Nebulized [Ventolin Nebulized] 2.5 mg INHALATION RT-Q4H PRN PRN Reason: Shortness Of Breath Albuterol Nebulized [Ventolin Nebulized] 2.5 mg INHALATION RT-QID Ferrous Sulfate [Iron (65 MG Elemental)] 325 mg PO BID@0800,1700 Magnesium Oxide Packet 240mg 240 mg PO DAILY@1700 LORazepam [Ativan] 0.5 mg PO DAILY@0800 #3 tab Gabapentin [Neurontin] 100 mg PO BID #6 cap Discontinued Potassium Chloride ER [K-Dur 20] 20 meq PO Q6H Sennosides-Docusate Sodium [Senokot-S] 2 tab PO HS PRN PRN Reason: Constipation Metolazone [Zaroxolyn] 2.5 mg PO DAILY@0600 Cephalexin [Keflex] 250 mg PO Q8HR #9 capsule No Action Cinacalcet HCl [Sensipar] 60 mg PO BID@0800,1700 Discharge Medication List Cholecalciferol (Vitamin D3) [Vitamin D3] 2,000 unit PO DAILY@1700 08/15/18 [History] Acetaminophen Tab [Tylenol] 650 mg PO Q4HR PRN tab 08/28/18 [Rx] Magnesium Hydroxide [Milk of Magnesia Concentrate] 2,400 mg PO DAILY PRN ml 08/28/18 [Rx] Atorvastatin [Lipitor] 80 mg PO HS@2100 09/21/18 [History] Bisacodyl [Dulcolax] 10 mg RECTAL DAILY PRN 09/21/18 [History] Pantoprazole [Protonix] 40 mg PO DAILY@0800 09/21/18 [History] Sodium Bicarbonate Tab 650 mg PO BID@0800,1700 09/21/18 [History] Albuterol Nebulized [Ventolin Nebulized] 2.5 mg INHALATION RT-Q4H PRN 02/17/19 [History] Albuterol Nebulized [Ventolin Nebulized] 2.5 mg INHALATION RT-QID 02/17/19 [History] Ammonium Lactate Lotion [Lac-Hydrin 12% Lotion] 1 applic TOPICAL DAILY 02/17/19 [History] Benzocaine/Menthol Lozeng [Cepacol lozenge] 1 lozenge MUCOUS MEM Q2H PRN 02/17/19 [History] Cinacalcet HCl [Sensipar] 60 mg PO BID@0800,1700 02/17/19 [History] Ferrous Sulfate [Iron (65 MG Elemental)] 325 mg PO BID@0800,1700 02/17/19 [History] Loperamide HCl [Imodium A-D] 2 - 4 mg PO QID PRN 02/17/19 [History] Mag Hydrox/Al Hydrox/Simeth [Maalox] 15 ml PO QID PRN 02/17/19 [History] Metoprolol Tartrate [Lopressor] 12.5 mg PO BID@0800,1700 02/17/19 [History] Magnesium Oxide Packet 240mg 240 mg PO DAILY@1700 02/20/19 [History] Cephalexin [Keflex] 250 mg PO QID #12 cap 02/24/19 [Rx] Gabapentin [Neurontin] 100 mg PO BID #6 cap 02/24/19 [Rx] LORazepam [Ativan] 0.5 mg PO DAILY@0800 #3 tab 02/24/19 [Rx] Psyllium Husk 100% [Metamucil Packet] 6 gm PO BID packet 02/24/19 [Rx] Vancomycin Oral Solution 125 mg PO Q6HR 10 Days ml 02/24/19 [Rx] Follow up Appointment(s)/Referral(s): Vidal Howard MD [Primary Care Provider] - 1-2 days
[2019-02-24 13:21] VITALS: BP 95/45; PULSE 77; TEMP 96.7
== END 2019-02-24 14:32 | DRG 372 ==
LOC: EC 12:46 → 3SCARD 16:25
PROVIDERS: ADMIT Hospitalist; ATTEND Hospitalist
DX: A04.72 Enterocolitis due to Clostridium difficile, not specified as recurrent (principal); I13.0 Hypertensive heart and chronic kidney disease with heart failure and stage 1 through stage 4 chronic kidney disease, or unspecified chronic kidney disease; I48.19 Other persistent atrial fibrillation; I50.22 Chronic systolic (congestive) heart failure; N30.00 Acute cystitis without hematuria; Z68.42 Body mass index [BMI] 45.0-49.9, adult; E16.2 Hypoglycemia, unspecified; E78.5 Hyperlipidemia, unspecified; E83.51 Hypocalcemia; T50.995A Adverse effect of other drugs, medicaments and biological substances, initial encounter; E86.9 Volume depletion, unspecified; E87.5 Hyperkalemia; I25.10 Atherosclerotic heart disease of native coronary artery without angina pectoris; I25.2 Old myocardial infarction; I65.23 Occlusion and stenosis of bilateral carotid arteries; I73.9 Peripheral vascular disease, unspecified; I87.2 Venous insufficiency (chronic) (peripheral); J44.9 Chronic obstructive pulmonary disease, unspecified; M19.90 Unspecified osteoarthritis, unspecified site; Z79.899 Other long term (current) drug therapy; Z85.42 Personal history of malignant neoplasm of other parts of uterus; Z87.891 Personal history of nicotine dependence; Z90.710 Acquired absence of both cervix and uterus; Z95.1 Presence of aortocoronary bypass graft; Z96.653 Presence of artificial knee joint, bilateral; E66.01 Morbid (severe) obesity due to excess calories; H26.9 Unspecified cataract; Z87.19 Personal history of other diseases of the digestive system; Z95.5 Presence of coronary angioplasty implant and graft
CPT/HCPCS: 36415; 71046; 80048; 80053; 81001; 82272; 82330; 82550; 83605; 83735; 83880; 84100; 84443; 84484; 85025; 85610; 85730; 87040; 87086; 87324; 93005; 94640; 96361; 96365; 96366; 96367; 96375; 96376; 99285